=== PATIENT | female | born 1940 | race Caucasian/White ===

== ENCOUNTER 2017-11-10 11:54 | Inpatient (IN) | payer OTHER ==
[2017-11-10] MEDS ORDERED: LEVALBUTEROL 1.25 MG/3 ML NEB ONE (13:47)
--- NOTE | 2017-11-10 14:13 | RAD REPORT ---
EXAM DESCRIPTION: RAD - Chest Single View - 11/10/2017 1:59 pm CLINICAL HISTORY: Shortness of breath. COMPARISON: 10/23/2017 FINDINGS: Portable technique limits examination quality. Mild interstitial pulmonary edema is present. The heart is upper limit normal in size. No displaced f ractures.Cervical spine hardware plate is present. Proximal right humerus hardware noted. IMPRESSION: Mild CHF/ volume overload pattern suspected.
[2017-11-10 14:38] LABS: Absolute Lymphocytes (CBC) 0.8 K/uL (0.7-4.9); Absolute Monocytes 0.8 K/uL (0.1-1.3); Absolute Neutrophil 4.7 K/uL (1.8-8.0); Basophils % 0.5 % (0-1.3); Eosinophils % 1.2 % (0-4.4); Hematocrit 27.9 % (36.0-45.0); Lymphocytes % 12.3 % (15.3-44.8); MCH 29.9 pg (27.0-35.0); MCV 87.5 fL (80-100); MPV 8.8 fL (7.6-11.3); Monocytes % 12.1 % (3.3-12.3); RBC Red Blood Cell Count 3.19 M/uL (3.86-4.86)
[2017-11-10 14:42] LABS: Protime INR 1.1
[2017-11-10 14:47] LABS: Potassium 3.9 mEq/L (3.6-5.0)
[2017-11-10] MEDS ORDERED: METHYLPREDNISOLONE 125 MG INJ ONE (14:55)
[2017-11-10] MEDS ORDERED: FUROSEMIDE 40 MG/4 ML VIAL ONE (14:57)
--- NOTE | 2017-11-10 14:57 | EKG ---
Test Date: 2017-11-10 Test Time: 13:31:37 Prize Jacker: DONTE MEASUREMENT RESULTS: Intervals: Rate: 70 AR: 198 QRSD: 90 QT: 398 QTc: 429 [employer] [place]: P: 46 AR: 198 QRS: 24 T: 69 INTERPRETIVE STATEMENTS: Normal sinus rhythm Normal ECG Compared to ECG 05/24/2016 13:37:54 No significant changes Electronically Signed On 11-10-17 14:56:29 CDT by Kenneth Melgar
[2017-11-10 15:05] LABS: Magnesium 1.4 mg/dL (1.8-2.5)
[2017-11-10 16:13] LABS: Urine Blood NEGATIVE (NEG); Urine Glucose NEGATIVE (NEG); Urine Protein NEGATIVE (NEG)
[2017-11-10] MEDS ORDERED: IPRATROPIUM BROM 0.5MG/2.5ML NEB PRN (16:44)
[2017-11-10] MEDS ORDERED: ALBUTEROL 2.5 MG/3 ML NEB SOL NEB PRN (16:44)
--- NOTE | 2017-11-10 16:53 | EDPHYS ---
Physician Documentation [facility] Name: Maura Harris Age: 77 yrs Sex: Female : 1940 Arrival Date: 11/10/2017 Time: 11:55 Bed 25 Private MD: Jaydon Quiroga ED Physician Gaurav Chow HPI: 11/10 16:12 This 77 yrs old Female presents to ER via Wheelchair with complaints of rn Doesn't Feel Right, High Blood Pressure. 16:12 The patient has shortness of breath at rest, with light activity. Onset: The rn symptoms/episode began/occurred 2 week(s) ago. Associated signs and symptoms: Pertinent negatives: chest pain, productive cough, fever, hemoptysis, loss of consciousness. Severity of symptoms: At their worst the symptoms were moderate in the emergency department the symptoms are unchanged. The patient has experienced similar episodes in the past. Reports 2 weeks of sob, swelling, has had 2 rounds of abx by pcp, not improving, not ambulatory because of previous hip problems and complications. states feels swollen from feet to face. . Historical: - Allergies: 12:29 BACLOFEN; hb 12:29 cefepime; hb 12:29 Ondansetron HCl; hb 12:29 prochlorperazine Edisylate; hb 12:29 Prochlorperazine Maleate; hb 12:29 Vancomycin; hb - Home Meds: 12:29 amlodipine 2.5 mg tab 1 tab once daily [Active]; amoxicillin-pot clavulanate 500-125 mg hb Oral tab 1 tab every 8 hours [Active]; doxazosin 5mg Oral tab 1 tab once daily [Active]; furosemide 40 mg Oral tab 1 tab once daily [Active]; labetalol 200 mg Oral tab 1 tab 2 times per day [Active]; levothyroxine 100 mcg tab [Active]; ofoxacin 0.3ml/5ml [Active]; sertraline 100 mg Oral tab 1 tab once daily [Active]; oxybutynin chloride 5 mg Oral tr24 1 tab once daily [Active]; sodium polystyrene sulfonate Oral powd 20 mL 2 times per day [Active]; - PMHx: 12:29 Hypertension; Hypothyroidism; Renal Disease; Asthma; Depression; UTI; GERD; Arthritis; hb bronchitis - chronic; lymphedema; - Immunization history:: Adult Immunizations up to date. - Social history:: Smoking status: Patient/guardian denies using tobacco. - Family history:: not pertinent. - Hospitalizations: : No recent hospitalization is reported. ROS: 16:12 Constitutional: Negative for fever, chills, and weight loss, Eyes: Negative for injury, rn pain, redness, and discharge, Neck: Negative for injury, pain, and swelling, Cardiovascular: Negative for chest pain, palpitations Respiratory: Negative for pleuritic chest pain, Abdomen/GI: Negative for abdominal pain, nausea, vomiting, diarrhea, and constipation, MS/Extremity: Negative for injury and deformity, Skin: Negative for injury, rash, and discoloration, Neuro: Negative for headache, numbness, tingling, and seizure. Exam: 16:12 Constitutional: This is a well developed, well nourished patient who is awake, alert, rn + mild tachypnea with shallow breaths Head/Face: Normocephalic, atraumatic. Eyes: Pupils equal round and reactive to light, extra-ocular motions intact. Lids and lashes normal. Conjunctiva and sclera are non-icteric and not injected. Cornea within normal limits. Periorbital areas with no swelling, redness, or edema. Cardiovascular: Regular rate and rhythm with a normal S1 and S2. No gallops, murmurs, or rubs. Normal PMI, no JVD. No pulse deficits. Respiratory: + mild tachypnea with shallow breaths, faint exp wheezing, no retractions. Abdomen/GI: Soft, non-tender, with normal bowel sounds. No distension or tympany. No guarding or rebound. No evidence of tenderness throughout. MS/ Extremity: Pulses equal, no cyanosis. Neurovascular intact. + 2+ non-pitting edema bilateral lower ext. Neuro: Awake and alert, GCS 15, oriented to person, place, time, and situation. Cranial nerves II-XII grossly intact. Motor strength 5/5 in all extremities. Sensory grossly intact. Vital Signs: 12:29 BP 159 / 53; Pulse 67; Resp 20; Temp 97.7; Pulse Ox 96% on R/A; hb 14:40 BP 156 / 66; Pulse 65; Resp 16; Temp 98.2(O); Pulse Ox 94% on R/A; dh3 16:11 BP 136 / 81; Pulse 64; Resp 16; Pulse Ox 95% on R/A; kr2 17:33 BP 178 / 65; Pulse 76; Resp 16; Pulse Ox 94% on R/A; kr2 18:01 BP 170 / 68; Pulse 70; Resp 16; Pulse Ox 96% on 2 lpm NC; kr2 MDM: 13:09 Patient medically screened. rn 16:50 Differential diagnosis: CHF exacerbation, Chronic Obstructive Pulmonary Disease rn Myocardial Infarction pneumonia, Pneumothorax pulmonary edema. Data reviewed: vital signs, nurses notes, lab test result(s), EKG, radiologic studies, plain films, and as a result, I will admit patient. Counseling: I had a detailed discussion with the patient and/or guardian regarding: the historical points, exam findings, and any diagnostic results supporting the discharge/admit diagnosis, lab results, radiology results, the need for further work-up and treatment in the hospital. Response to treatment: the patient's symptoms have mildly improved after treatment, and as a result, I will admit patient. Admission orders: after a detailed discussion of the patient's condition and case, the admit orders are written by me. 11/10 13:21 Order name: Blood Culture Adult (2) rn 11/10 13:21 Order name: BMP; Complete Time: 16:00 rn 11/10 13:21 Order name: BNP; Complete Time: 16:00 rn 11/10 13:21 Order name: CBC with Diff; Complete Time: 16:00 rn 11/10 13:21 Order name: Magnesium; Complete Time: 16:00 rn 11/10 13:21 Order name: PT-INR; Complete Time: 16:00 rn 11/10 13:21 Order name: Ptt, Activated; Complete Time: 16:00 rn 11/10 13:21 Order name: Troponin (emerg Dept Use Only); Complete Time: 16:00 rn 11/10 13:21 Order name: Procalcitonin; Complete Time: 16:00 rn 11/10 15:47 Order name: Urine Dipstick--Ancillary (enter results) bd 11/10 16:50 Order name: CBC with Automated Diff EDMS 11/10 16:50 Order name: CBC with Automated Diff EDMS 11/10 16:50 Order name: CBC with Automated Diff EDMS 11/10 13:21 Order name: XRAY CXR (1 view); Complete Time: 14:19 rn 11/10 13:21 Order name: EKG; Complete Time: 13:21 rn 11/10 16:50 Order name: CONS Pharmacy Consult [facility] 11/10 16:50 Order name: Echo with Doppler EDLA 11/10 16:50 Order name: Heart Healthy EDLA 11/10 16:50 Order name: Physical Therapy Consult [facility] 11/10 16:50 Order name: CBC with Automated Diff EDLA 11/10 16:50 Order name: Comprehensive Metabolic Panel [facility] 11/10 16:50 Order name: Comprehensive Metabolic Panel [facility] 11/10 16:50 Order name: Comprehensive Metabolic Panel EDLA 11/10 16:50 Order name: Comprehensive Metabolic Panel [facility] 11/10 16:50 Order name: Magnesium [facility] 11/10 16:50 Order name: Magnesium [facility] 11/10 13:21 Order name: Cardiac monitoring; Complete Time: 13:42 rn 11/10 13:21 Order name: EKG - Nurse/Tech; Complete Time: 13:42 rn 11/10 13:21 Order name: IV Saline Lock; Complete Time: 14:25 rn 11/10 13:21 Order name: Labs collected and sent; Complete Time: 14:25 rn 11/10 13:21 Order name: O2 Per Protocol; Complete Time: 13:42 rn 11/10 13:21 Order name: O2 Sat Monitoring; Complete Time: 13:43 rn Administered Medications: 13:42 Drug: Xopenex (3) 1.25 mg Route: Inhalation; kr2 14:10 Follow up: Response: No adverse reaction kr2 14:45 Drug: SOLU-Medrol 125 mg Route: IVP; Site: left antecubital; kr2 16:10 Follow up: Response: No adverse reaction kr2 14:45 Drug: Lasix 40 mg Route: IVP; Site: left antecubital; kr2 16:10 Follow up: Response: No adverse reaction kr2 Disposition: 11/10/17 16:52 Hospitalization ordered by Sanna Smith for Observation. Preliminary diagnosis are Pulmonary edema, Chronic obstructive pulmonary disease with (acute) exacerbation. - Bed requested for Telemetry/MedSurg (observation). - Status is Observation. kr2 - Condition is Stable. - Problem is new. - Symptoms have improved. UTI on Admission? No Signatures: Dispatcher [employer] EDMS Jing Tuttle, RN RN Gaurav Giordano MD MD rn Baxter, Heather, RN RN hb Reaves, Karey, RN RN kr2 Corrections: (The following items were deleted from the chart) 14:41 13:21 BLOOD CULTURE*+[id number].LAB.BRZ ordered. EDMS EDMS
--- NOTE | 2017-11-10 16:53 | ER ---
Nurse's Notes [facility] Name: Maura Harris Age: 77 yrs Sex: Female : 1940 Arrival Date: 11/10/2017 Time: 11:55 Bed 25 Private MD: Jaydon Quiroga Diagnosis: Pulmonary edema;Chronic obstructive pulmonary disease with (acute) exacerbation Presentation: 11/10 12:23 Presenting complaint: Patient states: "I have been sick for 2 weeks and my shortness of hb breath is getting worse and I am swollen all over." Recently completed Zithromax for URI. Transition of care: patient was not received from another setting of care. Onset of symptoms is unknown. Care prior to arrival: None. 12:23 Method Of Arrival: Wheelchair hb 12:23 Acuity: ELICIA 3 hb Historical: - Allergies: 12:29 BACLOFEN; hb 12:29 cefepime; hb 12:29 Ondansetron HCl; hb 12:29 prochlorperazine Edisylate; hb 12:29 Prochlorperazine Maleate; hb 12:29 Vancomycin; hb - Home Meds: 12:29 amlodipine 2.5 mg tab 1 tab once daily [Active]; amoxicillin-pot clavulanate 500-125 mg hb Oral tab 1 tab every 8 hours [Active]; doxazosin 5mg Oral tab 1 tab once daily [Active]; furosemide 40 mg Oral tab 1 tab once daily [Active]; labetalol 200 mg Oral tab 1 tab 2 times per day [Active]; levothyroxine 100 mcg tab [Active]; ofoxacin 0.3ml/5ml [Active]; sertraline 100 mg Oral tab 1 tab once daily [Active]; oxybutynin chloride 5 mg Oral tr24 1 tab once daily [Active]; sodium polystyrene sulfonate Oral powd 20 mL 2 times per day [Active]; - PMHx: 12:29 Hypertension; Hypothyroidism; Renal Disease; Asthma; Depression; UTI; GERD; Arthritis; hb bronchitis - chronic; lymphedema; - Immunization history:: Adult Immunizations up to date. - Social history:: Smoking status: Patient/guardian denies using tobacco. - Family history:: not pertinent. - Hospitalizations: : No recent hospitalization is reported. Screenin:15 Abuse screen: Denies threats or abuse. Denies injuries from another. Nutritional kr2 screening: No deficits noted. Tuberculosis screening: No symptoms or risk factors identified. Fall Risk None identified. Assessment: 13:30 General: Appears in no apparent distress. comfortable, obese, well groomed, Behavior is kr2 calm, cooperative, appropriate for age. Pain: Denies pain. Neuro: Level of Consciousness is awake, alert, obeys commands, Oriented to person, place, time, situation, Appropriate for age. Cardiovascular: Heart tones S1 S2 Capillary refill < 3 seconds in bilateral fingers Patient's skin is warm and dry. Edema is 3+ to left midcalf, left ankle, left foot, right midcalf, right ankle and right foot Rhythm is sinus rhythm. Respiratory: Reports shortness of breath on exertion Airway is patent Respiratory effort is even, unlabored, Respiratory pattern is regular, symmetrical, the patient has mild shortness of breath. GI: Abdomen is non-distended, obese. : No signs and/or symptoms were reported regarding the genitourinary system. EENT: Oral mucosa is moist. Derm: Skin is intact, is fragile, Skin is pink, warm \\T\\ dry. Musculoskeletal: Circulation, motion, and sensation intact. Range of motion: limited in all extremities. 14:16 Reassessment: Difficulty obtaining IV access, charge nurse notified and she is kr2 attempting at this time. 14:30 Reassessment: Patient appears in no apparent distress at this time. Patient and/or kr2 family updated on plan of care and expected duration. Pain level reassessed. Patient is alert, oriented x 3, equal unlabored respirations, skin warm/dry/pink. Patient denies pain at this time. 16:14 Reassessment: Patient appears in no apparent distress at this time. Patient and/or kr2 family updated on plan of care and expected duration. Pain level reassessed. Patient is alert, oriented x 3, equal unlabored respirations, skin warm/dry/pink. Assisted patient onto bedpan to urinate Patient denies pain at this time. 17:40 Reassessment: Patient appears in no apparent distress at this time. Patient and/or kr2 family updated on plan of care and expected duration. Pain level reassessed. Patient is alert, oriented x 3, equal unlabored respirations, skin warm/dry/pink. Attempted x3 to call 2nd floor to give report, one line busy, no answer at the other Patient denies pain at this time. Vital Signs: 12:29 BP 159 / 53; Pulse 67; Resp 20; Temp 97.7; Pulse Ox 96% on R/A; hb 14:40 BP 156 / 66; Pulse 65; Resp 16; Temp 98.2(O); Pulse Ox 94% on R/A; dh3 16:11 BP 136 / 81; Pulse 64; Resp 16; Pulse Ox 95% on R/A; kr2 17:33 BP 178 / 65; Pulse 76; Resp 16; Pulse Ox 94% on R/A; kr2 18:01 BP 170 / 68; Pulse 70; Resp 16; Pulse Ox 96% on 2 lpm NC; kr2 ED Course: 11:55 Patient arrived in ED. as 11:55 Jaydon Quiroga MD is Private Physician. as 12:27 Triage completed. hb 12:29 Arm band placed on left wrist. hb 13:08 Silva Rodriguez, HADLEY is Primary Nurse. kr2 13:09 Gaurav Chow MD is Attending Physician. rn 13:40 EKG done, by ED staff, reviewed by Gaurav Chow MD. kr2 13:54 X-ray completed. Portable x-ray completed in exam room. Patient tolerated procedure kp1 well. 13:55 XRAY CXR (1 view) In Process Unspecified. EDMS 14:15 Missed attempt(s): 22 gauge in left antecubital area. Bleeding controlled, band aid dh3 applied, catheter tip intact. 14:20 Missed attempt(s): 22 gauge in right forearm. Bleeding controlled, band aid applied, dh3 catheter tip intact. 14:20 First set of blood cultures drawn by me. dh3 14:25 Inserted saline lock: 22 gauge in left antecubital area, using aseptic technique. Blood ss collected. 14:25 Second set of blood cultures drawn by ED staff. dh3 15:15 Patient has correct armband on for positive identification. Bed in low position. Call kr2 light in reach. Side rails up X2. Adult w/ patient. awake overnight monitor on. Pulse ox on. NIBP on. Door closed. Warm blanket given. Head of bed elevated. 15:46 Urine collected: clean catch specimen, clear. kr2 16:51 Sanna Smith MD is Hospitalizing Provider. rn 18:05 No provider procedures requiring assistance completed. Patient admitted, IV remains in kr2 place. Administered Medications: 13:42 Drug: Xopenex (3) 1.25 mg Route: Inhalation; kr2 14:10 Follow up: Response: No adverse reaction kr2 14:45 Drug: SOLU-Medrol 125 mg Route: IVP; Site: left antecubital; kr2 16:10 Follow up: Response: No adverse reaction kr2 14:45 Drug: Lasix 40 mg Route: IVP; Site: left antecubital; kr2 16:10 Follow up: Response: No adverse reaction kr2 Outcome: 16:52 Decision to Hospitalize by Provider. rn 18:06 Admitted to Tele accompanied by tech, family with patient, via stretcher, room 221, kr2 with oxygen, with chart, Report called to Baljit 18:06 Condition: stable 18:06 Instructed on the need for admit, Demonstrated understanding of instructions. 18:47 Patient left the ED. kr2 Signatures: Dispatcher [employer] EDMS Denise Davis Roman, MD MD rn Smirch, Shelby, RN RN ss Baxter, Heather, RN RN hb Poole, Kathy kp1 Geeta Solis 3 Silva Rodriguez RN RN kr2 Corrections: (The following items were deleted from the chart) 16:10 13:30 Respiratory: Airway is patent Respiratory effort is even, unlabored, Respiratory kr2 pattern is regular, symmetrical, kr2 18:07 18:01 BP 170 / 68; Pulse 70bpm; Resp 16bpm; Pulse Ox 98% 2 lpm Nasal Cannula; kr2 kr2
[2017-11-10] MEDS ORDERED: Magnesium Sulfate 2gm IVPB 2 G/50 ML BAG IV ONE (17:00)
[2017-11-10] MEDS ORDERED: FUROSEMIDE 40 MG/4 ML VIAL IV SCH (17:00)
[2017-11-10] MEDS ORDERED: CARVEDILOL 12.5 MG TAB PO SCH (18:00)
[2017-11-10] MEDS: ENOXAPARIN 30 MG/0.3 ML SQ SCH (18:29)
[2017-11-10] MEDS: ACETAMINOPHEN 500 MG TAB PO PRN (20:19)
[2017-11-10] MEDS ORDERED: CARVEDILOL 6.25 MG TAB PO SCH (21:00)
[2017-11-11] MEDS ORDERED: METHYLPREDNISOLONE 40 MG INJ IV SCH (01:00)
--- NOTE | 2017-11-11 03:18 | HP ---
Date of Admission: 11/10/2017 Primary Care Physician: Jaydon Quiroga M.D. Consultants: David Sevilla M.D. with Pulmonology. Chief Complaint: Shortness of breath. Code Status: Full. History Of Present Illness: The patient is a 77-year-old female with past medical history of COPD, a sthma, not on home oxygen, hypertension, chronic kidney disease, sleep apnea, osteoarthritis, who was in her usual state of health until 3 weeks ago when the patient went to her primary care physician f or shortness of breath, wheezing, and cough. The patient was prescribed antibiotics, however, did no t have improvement. She was also given a steroid shot. The patient comes in with progressive weakne ss and progressive shortness of breath. She does report some dry cough. No fever. Does report some chills. Otherwise, also reports some orthopnea and swelling of her legs. The patient came into the ER for further evaluation as her symptoms were constant, moderate, and relatively progressing. On a rrival, her workup revealed sodium of 121, creatinine 1.38, magnesium 1.4. BNP was elevated at 322. Her procalcitonin was negative. Her chest x-ray showed some pulmonary edema and volume overload pat tern. The patient was given breathing treatments, IV steroids, and referred for admission. When the patient was seen in the ER, she was awake, alert, and oriented x3, in some mild distress. Past Medical History: Hypertension; COPD; asthma; chronic kidney disease; sleep apnea, not on CPAP; osteoarthritis; and history of legionnaires disease. Past Surgical History: The patient has had hysterectomy, appendectomy, gallbladder surgery, and ellis ract surgery. Allergies: TO BACLOFEN, COMPAZINE, PROCHLORPERAZINE, ZOFRAN, VANCOMYCIN, CEFEPIME. Medications: Reviewed. Social History: The patient is . Denies any tobacco use, alcohol use, or illicit drug use. The patient lives at home with her . Uses a scooter to get around. Family History: Lung and heart problems run in the family. Father of a brain aneurysm. Mother also of an aneurysm. Review of Systems: An 11-point system reviewed, negative except as per HPI. Physical Examination: Vital Signs: Temperature 97.7, heart rate 67, respirations 20, blood pressure 159/53, O2 initially 8 9% on room air, improved to 96% with treatment. HEENT: Normocephalic, atraumatic. PERRLA. EOMI. Moist mucous membranes. Oropharynx is clear. Po or dentition. Conjunctivae anicteric. Neck: Supple. Trachea midline. CV: S1 and S2. No murmurs. Peripheral pulses are weak bilaterally. Respiratory: Diminished breath sounds. Some expiratory wheezes. The patient is slightly tachypneic . No use of accessory muscles. Gastrointestinal: Abdomen is soft, nontender, nondistended. Positive bowel sounds. No guarding or rigidity. Extremities: No clubbing, cyanosis. 2+ edema in bilateral lower extremities. No calf tenderness. Skin: No rashes. Normal skin turgor. Neuro: Cranial nerves 2 through 12 intact grossly. No focal neurological deficit. Speech is normal . Psych: Mood is anxious. Affect is congruent with mood. Insight and judgment are fair. Laboratory Data: UA is negative. Sodium 121, potassium 3.9, chloride 91, CO2 23, BUN 27, creatinine 1.38, glucose 118, calcium 9.3, magnesium 1.4. Troponin less than 0.03. BNP 322. Procalcitonin 0. 05. INR 1.10. WBC 6.4, H and H 9.5 and 27.9, platelets 161, neutrophils 73.9%. Chest x-ray, person ally reviewed, shows mild CHF, volume overload pattern suspected. EKG, normal sinus rhythm, rate of 70. Assessment And Plan: A 77-year-old female with: 1.Acute chronic obstructive pulmonary disease exacerbation. We will continue with breathing treatme nts and add IV steroids. We will reconcile home medications and resume any other inhalers, the patie nt may be taking. We will consult Pulmonology. 2.Acute congestive heart failure exacerbation. We will start CHF guidelines. We will monitor I's a nd O's strictly, 1500 mL fluid restriction diet. We will diurese with IV Lasix. Monitor creatinine. The patient does have chronic kidney disease. Continue beta-jeronimo and ARB. 3.Hyponatremia. Fluid restriction. 4.Chronic kidney disease. Creatinine around baseline. We will continue to monitor. 5.Hypomagnesemia. We will replace and monitor. 6.Normocytic normochromic anemia, likely anemia of chronic disease. 7.Osteoarthritis, generalized. 8.Obstructive sleep apnea, not on CPAP. 9.Asthma, intermittent. 10.Essential hypertension. Plan: Admit the patient to Med-Surg, place as inpatient. We will consult Pulmonology. Follow up on blood cultures. We will obtain influenza screen. Continuous pulse ox. The patient does not have a [facility] power of civil rights attorney or living will. SARAHI Voice ID: [id number]
[2017-11-11 05:10] LABS: Absolute Lymphocytes (CBC) 0.4 K/uL (0.7-4.9); Absolute Neutrophil 4.3 K/uL (1.8-8.0); Albumin 3.7 g/dL (3.2-5.5); Basophils % 0.3 % (0-1.3); Bilirubin Total 0.7 mg/dL (0.3-1.2); Hematocrit 28.9 % (36.0-45.0); Lymphocytes % 8.9 % (15.3-44.8); MCH 28.8 pg (27.0-35.0); MCV 89.1 fL (80-100); Magnesium 1.7 mg/dL (1.8-2.5); Monocytes % 0.9 % (3.3-12.3); Potassium 3.9 mEq/L (3.6-5.0); Protein, Total 6.7 g/dL (6.0-8.3); RBC Red Blood Cell Count 3.25 M/uL (3.86-4.86)
[2017-11-11 05:21] LABS: Blood Morphology Comment NOT SEEN (NOT SEEN); Platelet Estimate ADEQ; Urine White Blood Cell Casts OK
[2017-11-11] MEDS ORDERED: MAGNESIUM SULFATE 1 gm IVPB 1 GM/100 ML BAG IV ONE (06:14)
--- NOTE | 2017-11-11 08:57 | P.CNS ---
Date of Consult: 11/11/17 Reason for Consult: Shortness of breath and cough Chief Complaint: Shortness of breath History of Present Illness: Patient is 77 years of age have not seen for 2 L she became worse over the past 2 weeks prior to that was doing well started complaining of chest congestion cough shortness of breath became progressively worse her slight fever and was admitted to the hospital cannot afford any bronchodilators is not take any oxygen has never smoked this morning patient was coughing this happened after eating Allergies baclofen Allergy (Intermediate, Verified 09/27/11 04:14) Shortness of breath prochlorperazine [From Compazine] Allergy (Intermediate, Verified 09/09/15 05:51 ) Anaphylaxis cefepime Allergy (Mild, Verified 09/27/11 04:15) Rash ondansetron HCl [From Zofran] Allergy (Mild, Verified 09/27/11 04:14) Rash prochlorperazine edisylate [From Compazine] Allergy (Mild, Verified 09/27/11 04: 14) Rash prochlorperazine maleate [From Compazine] Allergy (Mild, Verified 09/27/11 04:14 ) Rash vancomycin Allergy (Mild, Verified 09/27/11 04:14) Rash Home Medications: Amlodipine [Norvasc] 10 mg PO BID 11/10/17 Buspirone HCl 30 mg PO DAILY 11/10/17 Dexlansoprazole [Dexilant] 60 mg PO DAILY 11/10/17 Doxycycline Hyclate 100 mg PO BIDWM 11/10/17 Hydralazine HCl 50 mg PO TID 11/10/17 Ipratropium/Albuterol Sulfate [Combivent Respimat Inhal [place]] 1 puff IH Q6HP PRN 11/10/17 Ipratropium/Albuterol Sulfate [Iprat-Albut 0.5-3(2.5) mg/3 ml] 1 vial NEB Q8HP PRN 11/10/17 Labetalol HCl [Trandate] 400 mg PO BID 11/10/17 Levothyroxine [Synthroid] 112 mcg PO [id number] 11/10/17 Lisinopril 40 mg PO DAILY 11/10/17 Nystatin Cream [Mycostatin 100MU/Gm Cream] 1 appl TOP BID 11/10/17 Oxybutynin Chloride 5 mg PO TID 11/10/17 Sertraline [Zoloft] 100 mg PO DAILY 11/10/17 Sucralfate [Carafate -Tab] 1 gm PO QID 11/10/17 - Past Medical/Surgical History Diabetic: No -: asthma -: HTN -: COPD -: GERD -: hypothyroid -: spastic bladder -: cholecystectomy -: appendectomy -: hysterectomy -: tonsillectomy -: L hip sx -: x2 abdominal hernia repairs -: right arm sx -: right ankle sx - Social History Smoking Status: Never smoker Alcohol use: No CD- Drugs: No Caffeine use: Yes Place of Residence: Home Review of Systems 10-point ROS is otherwise unremarkable Physical Examination Temp Pulse Resp BP Pulse Ox 97 F 87 20 145/65 H 99 11/11/17 08:00 11/11/17 08:00 11/11/17 08:00 11/11/17 08:00 11/11/17 08:00 General: Alert, Oriented x3 Neck: Supple Respiratory: Clear to auscultation bilaterally Cardiovascular: No edema, Normal S1 S2 Gastrointestinal: Normal bowel sounds, Soft and benign Musculoskeletal: No clubbing, No swelling Laboratory Data (last 24 hrs) 11/10/17 14:25: PT 13.0 H, INR 1.10, APTT 29.2 11/10/17 14:25: WBC 6.4, Hgb 9.5 L, Hct 27.9 L, Plt Count 161 11/10/17 14:25: B-Natriuretic Peptide 322 H 11/10/17 14:25: Sodium 121 L, Potassium 3.9, BUN 27 H, Creatinine 1.38 H, Glucose 118, Magnesium 1.4 L* - Problems (1) Asthma exacerbation Current Visit: No Status: Acute Plan: Patient is 77 years of age with a history of asthma noncompliant cannot afford any inhalers was admitted with worsening dyspnea she does not use any bronchodilators at home is never smoked continue with bronchodilators here with and steroids chest x-ray shows some cardiomegaly interstitial changes probably has some underlying diastolic dysfunction daily room air pulse ox possible discharge tomorrow labs reviewed patient is mildly anemic BNP is mildly elevated reduce dose of Lasix echocardiogram pending
[2017-11-11] MEDS ORDERED: OXYBUTYNIN CHLORIDE 5 MG TAB PO SCH (09:00)
[2017-11-11] MEDS: NYSTATIN 100MU/GM CREAM 15GM TOP SCH ×2 (09:00→21:00)
[2017-11-11] MEDS ORDERED: SUCRALFATE 1 GM TABLET PO SCH (09:00)
[2017-11-11] MEDS ORDERED: LOSARTAN POTASSIUM 50 MG TABLET PO SCH (09:00)
[2017-11-11] MEDS ORDERED: BUSPIRONE HCL 15 MG TABLET PO SCH (09:00)
[2017-11-11] MEDS: AMLODIPINE 10 MG TAB PO SCH ×2 (09:00→21:28)
[2017-11-11] MEDS ORDERED: SERTRALINE HCL 100 MG TAB PO SCH (09:00)
[2017-11-11] MEDS ORDERED: FUROSEMIDE 40 MG/4 ML VIAL IV SCH (09:00)
[2017-11-11] MEDS: ARFORMOTEROL TARTRATE 15 MCG/2 ML VIAL.NEB NEB SCH ×2 (11:33→20:57)
[2017-11-11] MEDS: HYDRALAZINE HCL 50 MG PO SCH ×3 (11:47→21:34)
[2017-11-11] MEDS: LISINOPRIL 40 MG PO SCH (11:48)
[2017-11-11] MEDS: LABETALOL HCL 400 MG PO SCH ×2 (11:48→21:00)
[2017-11-11] MEDS: FUROSEMIDE 40 MG/4 ML VIAL IV SCH (11:48)
[2017-11-11] MEDS: SUCRALFATE 1 GM TABLET PO SCH ×3 (11:50→21:00)
[2017-11-11] MEDS: OXYBUTYNIN 5 MG PO SCH ×2 (11:51→21:29)
[2017-11-11] MEDS: predniSONE 20 MG TAB PO SCH ×2 (11:53→21:28)
--- NOTE | 2017-11-11 13:18 | PN ---
Date of Progress Note: 11/11/2017 Subjective: The patient is seen and examined. Chart reviewed and case discussed with RN. The patie nt is feeling significantly better. Her breathing is better, still having some generalized weakness. Review of Systems: Negative except as above. Medications: Reviewed. Physical Examination: Vital Signs: Temperature 97, heart rate 87, blood pressure 145/65, respirations 20, O2 99% on 2 lite rs via nasal cannula. General: Awake, alert, oriented x3. Some mild distress. Somewhat ill-appearing obese female. CVS: S1 and S2. No murmurs. Regular rate and rhythm. Peripheral pulses are weak bilaterally. Respiratory: Diminished breath sounds. Expiratory wheezes heard. Gastrointestinal: Abdomen is soft, nontender, nondistended. Positive bowel sounds. Extremities: No clubbing, cyanosis, 1+ edema in bilateral lower extremities. Neurologic: Nonfocal. Laboratory Data: Sodium 123, potassium 3.9, chloride 91, CO2 23, BUN 31, creatinine 1.44, glucose 15 9, magnesium 1.7. WBC 4.8, H and H 9.4 and 28.9, platelets 156, neutrophils 89.9%. Influenza screen negative. Blood cultures are pending. Assessment And Plan: A 77-year-old female with. 1.Acute chronic obstructive pulmonary disease exacerbation. Continue breathing treatments and stero ids. Pulmonology on the case. 2.Acute congestive heart failure exacerbation. Ejection fraction is 70% from 2016, diastolic dysfun ction. Continue fluid restriction and IV Lasix. May need to decrease Lasix dose if creatinine delano nues to bump up. The patient's home medications have been reconciled and beta-jeronimo and KRYSTAL were c ontinued. 3.Hyponatremia. Continue fluid restriction. 4.Chronic kidney disease. Creatinine is around baseline. We will monitor. 5.Hypomagnesemia. We will replace and monitor. 6.Normocytic and normochromic anemia, likely anemia of chronic disease. 7.Osteoarthritis, generalized. 8.Obstructive sleep apnea. The patient states that she does have a CPAP machine at home and has bee n able unable to bring it yesterday. 9.Asthma. Intermittent albuterol as needed. 10.Essential hypertension stable. We will resume home medications. /ALL Voice ID: [id number] Report ID: [id number]
[2017-11-11] MEDS: ENOXAPARIN 30 MG/0.3 ML SQ SCH (16:42)
[2017-11-11] MEDS ORDERED: LORAZEPAM 0.5 MG TABLET PO ONE (23:18)
[2017-11-12 05:09] LABS: Absolute Lymphocytes (CBC) 0.5 K/uL (0.7-4.9); Absolute Monocytes 0.4 K/uL (0.1-1.3); Absolute Neutrophil 6.3 K/uL (1.8-8.0); Basophils % 0.1 % (0-1.3); Hematocrit 26.8 % (36.0-45.0); Lymphocytes % 7.1 % (15.3-44.8); MCH 29.6 pg (27.0-35.0); MPV 9.6 fL (7.6-11.3); Monocytes % 5.1 % (3.3-12.3); RBC Red Blood Cell Count 3.04 M/uL (3.86-4.86)
[2017-11-12 05:26] LABS: Albumin 3.4 g/dL (3.2-5.5); Bilirubin Total 0.7 mg/dL (0.3-1.2); Magnesium 1.9 mg/dL (1.8-2.5); Potassium 3.8 mEq/L (3.6-5.0); Protein, Total 6.3 g/dL (6.0-8.3)
[2017-11-12] MEDS: LEVOTHYROXINE SOD 0.112 MG TAB PO SCH (05:49)
[2017-11-12] MEDS ORDERED: LEVOTHYROXINE SOD 0.112 MG TAB PO SCH (06:00)
[2017-11-12] MEDS: ARFORMOTEROL TARTRATE 15 MCG/2 ML VIAL.NEB NEB SCH ×2 (07:33→19:55)
--- NOTE | 2017-11-12 08:58 | RAD REPORT ---
EXAM DESCRIPTION: [facility] Single View11/12/2017 6:42 am CLINICAL HISTORY: Chest pain COMPARISON: November 10 FINDINGS: Mild bilateral interstitial opacities probably are mostly if not all completely chronic. The heart is mildly enlarged
[2017-11-12] MEDS: LABETALOL HCL 400 MG PO SCH ×2 (09:00→21:16)
[2017-11-12] MEDS: AMLODIPINE 10 MG TAB PO SCH ×2 (09:19→21:15)
[2017-11-12] MEDS: FUROSEMIDE 40 MG/4 ML VIAL IV SCH (09:19)
[2017-11-12] MEDS: NYSTATIN 100MU/GM CREAM 15GM TOP SCH ×2 (09:19→21:15)
[2017-11-12] MEDS: predniSONE 20 MG TAB PO SCH ×2 (09:19→21:15)
[2017-11-12] MEDS: SERTRALINE HCL 100 MG TAB PO SCH (09:20)
[2017-11-12] MEDS: DEXLANSOPRAZOLE 60 MG PO SCH (09:21)
[2017-11-12] MEDS: HYDRALAZINE HCL 50 MG PO SCH ×3 (09:21→21:19)
[2017-11-12] MEDS: OXYBUTYNIN 5 MG PO SCH ×3 (09:22→21:18)
[2017-11-12] MEDS: BUSPIRONE HCL 30 MG PO SCH (09:22)
[2017-11-12] MEDS: LUBIPROSTONE 24 MCG PO SCH (09:23)
[2017-11-12] MEDS: LISINOPRIL 40 MG PO SCH (09:23)
[2017-11-12] MEDS: SUCRALFATE 1 GM TABLET PO SCH ×4 (09:24→21:16)
--- NOTE | 2017-11-12 11:21 | ECHO ---
HEIGHT: 5 ft 5 in WEIGHT: 235 lb 4.8 oz DATE OF STUDY: 11/12/[address]: Sanna Smith MD 2-DIMENSIONAL: YES M.MODE: YES DOPPLER: YES COLOR FLOW: YES TDS: NO PORTABLE: NO DEFINITY: NO BUBBLE STUDY: NO DIAGNOSIS: CONGESTIVE HEART FAILURE CARDIAC HISTORY: CATHERIZATION: NO SURGERY: NO PROSTHETIC VALVE: NO PACEMAKER: NO MEASUREMENTS (cm) DIASTOLIC (NORMALS) SYSTOLIC (NORMALS) IVSd 1.2 (0.6-1.2) LA Diam 3.9 (1.9-4.0) LVEF 78% LVIDd 4.8 (3.5-5.7) LVIDs 2.6 (2.0-3.5) %FS 46% LVPWd 1.0 (0.6-1.2) Ao Diam 2.8 (2.0-3.7) 2 DIMENSIONAL ASSESSMENT: RIGHT ATRIUM: NORMAL LEFT ATRIUM: NORMAL RIGHT VENTRICLE: NORMAL LEFT VENTRICLE: NORMAL TRICUSPID VALVE: NORMAL MITRAL VALVE: NORMAL PULMONIC VALVE: NORMAL AORTIC VALVE: NORMAL PERICARDIAL EFFUSION: NONE AORTIC ROOT: NORMAL LEFT VENTRICULAR WALL MOTION: DOPPLER/COLOR FLOW: MILD AORTIC, MITRAL AND TRICUSPID REGURGITATION. MILD PULMONARY HYPERTENSION. ESTIMATED RIGHT VENTRICULAR SYSTOLIC PRESSURE 40mmHg. COMMENTS: NORMAL 2D ECHO. MILD AORTIC, MITRAL AND TRICUSPID REGURGITATION. TECHNOLOGIST: JOSE MÉNDEZ
[2017-11-12] MEDS: ENOXAPARIN 30 MG/0.3 ML SQ SCH (18:24)
--- NOTE | 2017-11-12 18:45 | P.PN ---
Date of Service: 11/12/17 Subjective: The patient is seen and examined. Chart reviewed and case discussed with RN. The patient is feeling significantly better however very emotional and teary eyes. States she is worried about finance and expensive Medication. Review of Systems: Negative except as above. Medications: Reviewed. Physical Examination: Vital Signs: Reviewed. General: Awake, alert, oriented x3. Some mild distress. Somewhat ill- appearing obese female. CVS: S1 and S2. No murmurs. Regular rate and rhythm. Peripheral pulses are weak bilaterally. Respiratory: Diminished breath sounds. Expiratory wheezes heard. Gastrointestinal: Abdomen is soft, nontender, nondistended. Positive bowel sounds. Extremities: No clubbing, cyanosis, 1+ edema in bilateral lower extremities. Neurologic: Nonfocal. Laboratory Data: Sodium 122, potassium 3.9, chloride 86, CO2 23, BUN 31, creatinine 1.37, glucose 212, magnesium 1.7. WBC 4.8, H and H 9.4 and 28.9, platelets 156, neutrophils 89.9%. Influenza screen negative. Blood cultures are pending. Assessment And Plan: 1. Acute chronic obstructive pulmonary disease exacerbation - resolved now. -Continue breathing treatments and steroids. -Pulmonology consulted. Appreciated Reccs 2. Acute congestive heart failure exacerbation _ Improved now -Echo Pending -Continue fluid restriction and IV Lasix. -Continue with BB and KRYSTAL inhibitor 3.Hyponatremia - NA today 122. -Continue fluid restriction. -If needed will Add Salt tabs 4.Chronic kidney disease- Creatinine is around baseline. 5.Obstructive sleep apnea -CPAP for now 6.Essential hypertension -stable. GI and DVT PPX Dispo : Awaiting Clinical improvement.
[2017-11-13] MEDS: LEVOTHYROXINE SOD 0.112 MG TAB PO SCH (05:29)
[2017-11-13 06:04] LABS: Absolute Lymphocytes (CBC) 0.6 K/uL (0.7-4.9); Absolute Monocytes 0.4 K/uL (0.1-1.3); Absolute Neutrophil 6.1 K/uL (1.8-8.0); Basophils % 0.2 % (0-1.3); Hematocrit 28.7 % (36.0-45.0); Lymphocytes % 8.4 % (15.3-44.8); MCH 29.7 pg (27.0-35.0); MCV 88.4 fL (80-100); Monocytes % 6.2 % (3.3-12.3); RBC Red Blood Cell Count 3.24 M/uL (3.86-4.86)
[2017-11-13 06:15] LABS: Albumin 3.4 g/dL (3.2-5.5); Bilirubin Total 0.6 mg/dL (0.3-1.2); Potassium 3.9 mEq/L (3.6-5.0); Protein, Total 5.9 g/dL (6.0-8.3)
[2017-11-13] MEDS: ARFORMOTEROL TARTRATE 15 MCG/2 ML VIAL.NEB NEB SCH ×2 (07:32→20:11)
[2017-11-13] MEDS: DEXLANSOPRAZOLE 60 MG PO SCH (08:31)
[2017-11-13] MEDS: LABETALOL HCL 400 MG PO SCH (09:00)
[2017-11-13] MEDS: OXYBUTYNIN 5 MG PO SCH ×3 (09:00→21:00)
[2017-11-13] MEDS: AMLODIPINE 10 MG TAB PO SCH ×2 (09:00→21:00)
[2017-11-13] MEDS: BUSPIRONE HCL 30 MG PO SCH (09:48)
[2017-11-13] MEDS: LUBIPROSTONE 24 MCG PO SCH (09:49)
[2017-11-13] MEDS: SERTRALINE HCL 100 MG TAB PO SCH (09:49)
[2017-11-13] MEDS: SUCRALFATE 1 GM TABLET PO SCH ×4 (09:50→21:00)
[2017-11-13] MEDS: LISINOPRIL 40 MG PO SCH (09:50)
[2017-11-13] MEDS: HYDRALAZINE HCL 50 MG PO SCH (09:50)
[2017-11-13] MEDS: NYSTATIN 100MU/GM CREAM 15GM TOP SCH ×2 (09:55→21:14)
[2017-11-13] MEDS: predniSONE 20 MG TAB PO SCH ×2 (09:55→21:13)
[2017-11-13] MEDS: FUROSEMIDE 40 MG/4 ML VIAL IV SCH (09:55)
[2017-11-13] MEDS: LABETALOL HCL 100 MG TAB PO SCH ×2 (10:31→21:21)
--- NOTE | 2017-11-13 12:36 | P.PN ---
Date of Service: 11/13/17 Subjective: The patient is seen and examined. Chart reviewed and case discussed with RN. The patient is feeling significantly better today. About to work with PT. States at home she gets around with electric chair and she has not been walking a lot for a while now. Review of Systems: Negative except as above. Medications: Reviewed. Physical Examination: Vital Signs: Reviewed. General: Awake, alert, oriented x3. Some mild distress. Somewhat ill- appearing obese female. CVS: S1 and S2. No murmurs. Regular rate and rhythm. Peripheral pulses are weak bilaterally. Respiratory: Diminished breath sounds. Expiratory wheezes heard. Gastrointestinal: Abdomen is soft, nontender, nondistended. Positive bowel sounds. Extremities: No clubbing, cyanosis, 1+ edema in bilateral lower extremities. Neurologic: Nonfocal. Laboratory Data: Sodium 123, potassium 3.9, chloride 86, CO2 23, BUN 31, creatinine 1.57, glucose 212, magnesium 1.7. WBC 4.8, H and H 9.4 and 28.9, platelets 156, neutrophils 89.9%. Influenza screen negative. Blood cultures are pending. Assessment And Plan: 1. Acute chronic obstructive pulmonary disease exacerbation - resolved now. -Continue breathing treatments and steroids. -Pulmonology consulted. Appreciated Reccs 2. Acute congestive heart failure exacerbation - Improved now -Echo with EF of 83%. No other abnormality noted. -Continue fluid restriction and now PO Lasix. -Continue with BB and KRYSTAL inhibitor -Will monitor for today and see if her CR improves. 3.Hyponatremia - NA today 123. -Continue fluid restriction. -If needed will Add Salt tabs 4.Chronic kidney disease- Creatinine is around baseline. 5.Obstructive sleep apnea -CPAP for now 6.Essential hypertension -stable. GI and DVT PPX Dispo : Awaiting Clinical improvement.
[2017-11-13] MEDS: HOME MED 1 EA UNK (Hydralazine Hcl [Hydralazine Hcl] 50 MG) PO SCH ×2 (14:00→21:00)
--- NOTE | 2017-11-13 14:01 | RAD REPORT ---
EXAM DESCRIPTION: US - Renal Ultrasound-Complete - 11/13/2017 1:40 pm CLINICAL HISTORY: Acute renal failure COMPARISON: 03/08/2016 FINDINGS: The right kidney is small in size. The left kidney is normal in size. The right kidney measures 5.3 x 2.6 x 2.0 cm. No hydronephrosis, focal mass or perinephric fluid. The left kidney measures 10.9 x 5.8 x 4.6 cm. No hydronephrosis, focal mass or perinephric fluid. A 1 cm left renal cyst noted. IMPRESSION: Atrophic right kidney.
[2017-11-13] MEDS: ENOXAPARIN 30 MG/0.3 ML SQ SCH (18:09)
[2017-11-14] MEDS: LEVOTHYROXINE SOD 0.112 MG TAB PO SCH (05:15)
[2017-11-14 06:11] LABS: UR CREAT 60.8 mg/dL; UR POTASSIUM 19.5 mEq/L (25-120)
[2017-11-14] MEDS: ARFORMOTEROL TARTRATE 15 MCG/2 ML VIAL.NEB NEB SCH ×2 (07:10→20:03)
[2017-11-14] MEDS: HOME MED 1 EA UNK (Dexlansoprazole [Dexilant] 60 MG) PO SCH (07:30)
[2017-11-14] MEDS ORDERED: HOME MED 1 EA UNK (Lisinopril [Lisinopril] 40 MG) PO SCH (09:00)
[2017-11-14] MEDS: SUCRALFATE 1 GM TABLET PO SCH ×4 (09:00→20:30)
[2017-11-14] MEDS: LUBIPROSTONE 24 MCG PO SCH (09:00)
[2017-11-14] MEDS: NYSTATIN 100MU/GM CREAM 15GM TOP SCH ×2 (09:00→20:30)
[2017-11-14] MEDS: SERTRALINE HCL 100 MG TAB PO SCH (09:00)
[2017-11-14] MEDS: HOME MED 1 EA UNK (Hydralazine Hcl [Hydralazine Hcl] 50 MG) PO SCH ×3 (09:00→20:30)
[2017-11-14] MEDS: AMLODIPINE 10 MG TAB PO SCH (09:00)
[2017-11-14] MEDS: BUSPIRONE HCL 30 MG PO SCH (09:00)
[2017-11-14] MEDS: OXYBUTYNIN 5 MG PO SCH ×5 (09:00→20:28)
[2017-11-14] MEDS: LABETALOL HCL 100 MG TAB PO SCH ×3 (09:11→20:31)
[2017-11-14] MEDS: predniSONE 20 MG TAB PO SCH (09:12)
[2017-11-14] MEDS: FUROSEMIDE 40 MG TABLET PO SCH (09:12)
[2017-11-14 10:19] LABS: Absolute Lymphocytes (CBC) 0.8 K/uL (0.7-4.9); Absolute Monocytes 0.7 K/uL (0.1-1.3); Basophils % 0.2 % (0-1.3); Hematocrit 28.4 % (36.0-45.0); Lymphocytes % 10.3 % (15.3-44.8); MCH 30.2 pg (27.0-35.0); MCV 87.9 fL (80-100); MPV 8.9 fL (7.6-11.3); Monocytes % 9.4 % (3.3-12.3); RBC Red Blood Cell Count 3.23 M/uL (3.86-4.86)
[2017-11-14 10:30] LABS: Potassium 3.5 mEq/L (3.6-5.0)
[2017-11-14 10:34] LABS: Albumin 3.5 g/dL (3.2-5.5); Bilirubin Total 0.6 mg/dL (0.3-1.2); Protein, Total 6.3 g/dL (6.0-8.3)
--- NOTE | 2017-11-14 10:59 | P.PN ---
Subjective: The patient is seen and examined. Chart reviewed and case discussed with RN. The patient is feeling better today. About to work with PT. States at home she gets around with electric chair and she has not been walking a lot for a while now. Today she has started with her 24 hr Urine collection Review of Systems: Negative except as above. Medications: Reviewed. Physical Examination: Vital Signs: Reviewed. General: Awake, alert, oriented x3. Some mild distress. Somewhat ill- appearing obese female. CVS: S1 and S2. No murmurs. Regular rate and rhythm. Peripheral pulses are weak bilaterally. Respiratory: Diminished breath sounds. Expiratory wheezes heard. Gastrointestinal: Abdomen is soft, nontender, nondistended. Positive bowel sounds. Extremities: No clubbing, cyanosis, 1+ edema in bilateral lower extremities. Neurologic: Nonfocal. Laboratory Data: CMP Sodium 122 L, Potassium 3.5 L, Chloride 88 L, Carbon Dioxide 25, BUN 50 H, Creatinine 2.00 H, Estimated GFR 24 L, Glucose 133 H, Calcium 9.3, Total Bilirubin 0.6, AST 35, ALT 27, Alkaline Phosphatase 50, Serum Total Protein 6.3 , Albumin 3.5, Globulin 2.8, Albumin/Globulin Ratio 1.3 CBC WBC 7.5, RBC 3.23 L, Hgb 9.8 L, Hct 28.4 L, MCV 87.9, MCH 30.2, MCHC 34.4, RDW 14.3, Plt Count 179, MPV 8.9, Neutrophils % 80.1 H, Lymphocytes % 10.3 L, Monocytes % 9.4, Eosinophils % 0.0, Basophils % 0.2, Absolute Neutrophils 6.0, Absolute Lymphocytes 0.8, Absolute Monocytes 0.7, Absolute Eosinophils 0.0, Absolute Basophils 0.0 Urine Test: Ur Random Microalbumin 0.8, Ur Random Sodium 39, Ur Random Potassium 19.5 L, Ur Random Chloride 30, Urine Creatinine 60.8, Urine Osmolality 249 Assessment And Plan: 1. Acute chronic obstructive pulmonary disease exacerbation - resolved now. -Continue breathing treatments and steroids. -Pulmonology consulted. Appreciated Reccs 2. Acute congestive heart failure exacerbation - Improved now -Echo with EF of 78%. No other abnormality noted. -On PO lasix now -Continue with BB and KRYSTAL inhibitor 3.Hyponatremia - NA today 122. -Started on IV fluids today. Given the h/o CHF caution with fluids. Pt is more on the dehydrated side currently. 4.Chronic kidney disease- Creatinine elevated today -Consulted Nephrology -Kidney U/S with Right atrophic Kidney -24hr urine collection pending. 5.Obstructive sleep apnea -CPAP for now 6.Essential hypertension -stable. GI and DVT PPX Dispo : Awaiting Clinical improvement.
[2017-11-14] MEDS ORDERED: NA CHLORIDE 0.9% 1,000 ML IV SCH (11:00)
[2017-11-14] MEDS ORDERED: metroNIDAZOLE 500 MG TABLET PO SCH (14:45)
[2017-11-14] MEDS: NA CHLORIDE 0.9% 1,000 ML IV SCH (14:57)
[2017-11-14] MEDS: ACETAMINOPHEN 500 MG TAB PO PRN ×2 (14:57→20:23)
[2017-11-14] MEDS: ALPRAZOLAM 0.25 MG TABLET PO PRN (15:22)
[2017-11-14] MEDS: metroNIDAZOLE 500 MG TABLET PO SCH (17:16)
[2017-11-14] MEDS: ENOXAPARIN 30 MG/0.3 ML SQ SCH (17:16)
[2017-11-14 18:56] LABS: Potassium 3.7 mEq/L (3.6-5.0)
--- NOTE | 2017-11-14 22:36 | CON ---
Date of Consultation: 11/14/2017 Reason For Consult: Hyponatremia and acute renal insufficiency. History Of Present Illness: Ms. Márquez is a 77-year-old female with past medical history significant f or history of COPD, congestive heart failure, who presented to [facility] complaining of wor sening of shortness of breath associated with lower extremity edema, chest congestion, and cough. Th e patient was diagnosed with COPD/CHF exacerbation. Since her chest x-ray showed pulmonary edema, sh maxwell has been treated with steroids and Lasix. She was noted to be hyponatremic since the time of admis jolene, which has been persistent with a sodium in the 122 range. However, her creatinine was 1.4 at t he time of admission and has been consistently getting worse up to 2 this morning. Sodium has been p ersistently low at 122 and potassium is also low at 3.5, chloride of 88, which is worsening since the time of admission, and BUN of 50, which is worsening from 30 at the time of admission. A CBC showin g stable hemoglobin, hematocrit, and platelet count. The patient states that she has been very anxious, jittery, and feels like her bones are all hurting, and she always has reaction whenever she gets steroids. She wants something to relax her. She does state that her swelling in the legs is improving. However, she states that her shortness of breath is about the same. No repeat chest x-ray has been done since the time of admission. Past Medical History: Significant for history of COPD, congestive heart failure. Morbid obesity, as thma, sleep apnea, but she does not use CPAP, osteoarthritis, and history of Legionnaires disease. Past Surgical History: Significant for history of hysterectomy, appendectomy, cholecystectomy, and c ataract surgery. Allergies: SHE IS ALLERGIC TO MULTIPLE MEDICATIONS INCLUDING BACLOFEN, COMPAZINE, ZOFRAN, VANCOMYCIN , AND CEFEPIME. HOME MEDICATIONS AND CURRENT MEDICATIONS HAVE BEEN REVIEWED. Social History: The patient is . No history of tobacco, alcohol, or drug use reported. Live s at home with her and uses a scooter to get around. Family History: Noncontributory for any history of kidney disease. However, she does have history o f heart problems in many of her family members. Details unable to be obtained. Review of Systems: Positive for weakness, pain all over with bones hurting. Also complaining of shortness of breath at rest. Denies any cough at this time. Swelling is improving. Denies any chest pain. Denies any ailsa sea, vomiting, but she did have an episode of diarrhea the day before yesterday. Imaging Studies: The patient's x-ray from the 12 of November is showing bilateral interstitial opaciti es, possibly chronic, and cardiomegaly. The patient also had an ultrasound of her kidneys done yeste rd, which showed evidence of atrophic right kidney with normal left kidney. Current Medications: Have all been reviewed. She remains on lisinopril 40 mg a day. She is on very high dose of amlodipine 10 mg b.i.d. and she is on very high dose of labetalol of 400 mg b.i.d. She remains on Flagyl 500 mg every 8 hours and prednisone has been decreased down to 20 mg daily from b. i.d. She is also on a munch of anti-anxiety medications as well, which have been continued from her home list. Impression: 1.Acute renal insufficiency possibly secondary to dehydration versus cardiorenal syndrome from under lying Lasix use. However, the patient is noted to have atrophic right kidney, which makes us suspici ous for underlying renovascular disease, which has worsened in the presence of dehydration and use of KRYSTAL inhibitors along with diuretics. At this time, I will discontinue the lisinopril. Her blood pr essures have to be monitored very closely to avoid hypotension. The patient has been noted to have b lood pressures in the 108/53 and 119/58, which is considered hypotension for this patient with possib le underlying renovascular hypertension. I have decreased the amlodipine significantly down to 2.5 m g a day to avoid further fluctuations of her blood pressure and also I will decrease the labetalol to 200 mg b.i.d. and discontinue the lisinopril completely and monitor her closely. 2.Hyponatremia, etiology possibly related to syndrome of inappropriate secretion of antidiuretic hor manuel versus hypovolemic hyponatremia. Her hyponatremia seems to be persistent despite diuresis, henc e I do not suspect this is from her congestive heart failure as her previous sodiums have been normal upon review of records. She has been started on IV fluids at this time, which have been really inte rmittent because of lack of IV access. I will order repeat sodium again later this evening and if it is dropping, her IV fluids needs to be stopped, and she possibly would benefit from starting tolvapt an or conivaptan to improve her sodium at that point. I would avoid salt tablets given history of se lisandra underlying congestive heart failure. 3.Chronic obstructive pulmonary disease exacerbation. The patient's lung seems to be doing okay at this time. I will go ahead and order a repeat chest x-ray for further evaluation of her volume statu s and pulmonary edema. I do not suspect that there is any acute component going on at this time. Cl inically, her lungs sound okay, and she will benefit from tapering down the steroids as well. 4.Congestive heart failure, her volume status seems to be euvolemic at this time. She is on Lasix o nce a day p.o. we will continue that and monitor her. Plan: Overall, patient's condition is guarded at this time, given multiple comorbidities and ongoing severe hyponatremia and renal insufficiency. I have discontinued the lisinopril, adjusted her blood pressure medications ordered. Repeat chest x-ray for today, and I will order repeat labs for today to make sure that her sodium is not further dropping. Continue to monitor her closely, and the plan was discussed with the patient and her family at bedside in detail. Also have ordered Xanax to help her with the anxiety. Continue to monitor her closely. Thank you very much for this consultation. Please do not hesitate to call us with any questions or c oncerns. JESSICA/ALL Voice ID: [id number] Report ID: [id number]
[2017-11-15] MEDS: metroNIDAZOLE 500 MG TABLET PO SCH ×3 (01:46→17:20)
[2017-11-15] MEDS: LEVOTHYROXINE SOD 0.112 MG TAB PO SCH (05:44)
[2017-11-15] MEDS: ALPRAZOLAM 0.25 MG TABLET PO PRN ×2 (05:48→21:22)
[2017-11-15] MEDS: ACETAMINOPHEN 500 MG TAB PO PRN ×2 (05:48→10:43)
[2017-11-15] MEDS: HOME MED 1 EA UNK (Dexlansoprazole [Dexilant] 60 MG) PO SCH (07:30)
[2017-11-15] MEDS: ARFORMOTEROL TARTRATE 15 MCG/2 ML VIAL.NEB NEB SCH ×2 (07:30→19:30)
[2017-11-15 08:39] LABS: UR CREAT 39.2 mg/dL; UR MICROALBUMIN 0.5 mg/dL (< 1.9); UR POTASSIUM 12.8 mEq/L (25-120); Urine Microalbumin Excretion R 4.5 ug/min (< 20)
[2017-11-15] MEDS: predniSONE 20 MG TAB PO SCH (08:41)
[2017-11-15] MEDS: FUROSEMIDE 40 MG TABLET PO SCH (08:41)
[2017-11-15] MEDS: LABETALOL HCL 100 MG TAB PO SCH ×2 (08:43→21:31)
[2017-11-15] MEDS: AMLODIPINE 2.5 MG TAB PO SCH (08:43)
[2017-11-15] MEDS: HOME MED 1 EA UNK (Hydralazine Hcl [Hydralazine Hcl] 50 MG) PO SCH ×3 (08:45→21:00)
[2017-11-15] MEDS: SUCRALFATE 1 GM TABLET PO SCH ×4 (08:45→21:00)
[2017-11-15] MEDS: BUSPIRONE HCL 30 MG PO SCH (08:46)
[2017-11-15] MEDS: SERTRALINE HCL 100 MG TAB PO SCH (08:46)
[2017-11-15] MEDS: OXYBUTYNIN 5 MG PO SCH ×3 (08:46→21:00)
[2017-11-15] MEDS: NYSTATIN 100MU/GM CREAM 15GM TOP SCH ×2 (08:47→21:29)
[2017-11-15] MEDS: NA CHLORIDE 0.9% 1,000 ML IV SCH (08:47)
[2017-11-15] MEDS: LUBIPROSTONE 24 MCG PO SCH (08:47)
--- NOTE | 2017-11-15 09:20 | RAD REPORT ---
EXAM DESCRIPTION: Kamron Single View11/15/2017 6:16 am CLINICAL HISTORY: Shortness of breath COMPARISON: November 12 FINDINGS: The lungs appear clear of acute infiltrate. The heart is mildly enlarged IMPRESSION: No acute abnormalities displayed
[2017-11-15 10:54] LABS: Absolute Lymphocytes (CBC) 1.1 K/uL (0.7-4.9); Absolute Monocytes 1.1 K/uL (0.1-1.3); Absolute Neutrophil 5.8 K/uL (1.8-8.0); Basophils % 0.3 % (0-1.3); Eosinophils % 0.5 % (0-4.4); Lymphocytes % 14.1 % (15.3-44.8); MCV 88.8 fL (80-100); MPV 8.9 fL (7.6-11.3); Monocytes % 13.8 % (3.3-12.3)
[2017-11-15 11:23] LABS: Albumin 3.8 g/dL (3.2-5.5); Bilirubin Total 0.7 mg/dL (0.3-1.2); Potassium 3.3 mEq/L (3.6-5.0); Protein, Total 6.7 g/dL (6.0-8.3)
[2017-11-15 13:00] LABS: Blood Morphology Comment NOT SEEN (NOT SEEN); Platelet Estimate ADEQ
--- NOTE | 2017-11-15 15:38 | P.PN ---
Date of Service: 11/15/17 Subjective: The patient is seen and examined. Chart reviewed and case discussed with RN. The patient is feeling better today. States at home she gets around with electric chair and she has not been walking a lot for a while now. nephrology on board now and made changes to her BP meds which she states is helping her. Review of Systems: Negative except as above. Medications: Reviewed. Physical Examination: Vital Signs: Reviewed. General: Awake, alert, oriented x3. Some mild distress. Somewhat ill- appearing obese female. CVS: S1 and S2. No murmurs. Regular rate and rhythm. Peripheral pulses are weak bilaterally. Respiratory: Diminished breath sounds. Expiratory wheezes heard. Gastrointestinal: Abdomen is soft, nontender, nondistended. Positive bowel sounds. Extremities: No clubbing, cyanosis, 1+ edema in bilateral lower extremities. Neurologic: Nonfocal. Laboratory Data: CMP: Sodium 121 L, Potassium 3.3 L, Chloride 90 L, Carbon Dioxide 22, BUN 52 H, Creatinine 1.89 H, Estimated GFR 26 L, Glucose 99, Calcium 9.1, Total Bilirubin 0.7, AST 41, ALT 32, Alkaline Phosphatase 51, Serum Total Protein 6.7, Albumin 3.8, Globulin 2.9, Albumin/Globulin Ratio 1.3 CBC: WBC 8.1, RBC 3.60 L, Hgb 10.4 L, Hct 32.0 L, MCV 88.8, MCH 29.0, MCHC 32.7 , RDW 14.1, Plt Count 216 D, MPV 8.9, Neutrophils % 71.3, Lymphocytes % 14.1 L , Monocytes % 13.8 H, Eosinophils % 0.5, Basophils % 0.3, Absolute Neutrophils 5.8, Segmented Neutrophils 74, Absolute Lymphocytes 1.1, Lymphocytes 18, Monocytes 8, Absolute Monocytes 1.1, Absolute Eosinophils 0.0, Absolute Basophils 0.0, Morphology Comment Not seen Urine: Ur Random Microalbumin 0.5, Ur Random Sodium 47, Ur Random Potassium 12.8 L, Ur Random Chloride 42, Urine Total Volume 1300, Urine Creatinine 39.2, Ur Creatinine 24 Hour 510 L, Ur Microalbumin 24 Hr 7, Microalbumin Excretion 4.5 , Ur Sodium 24 Hour 61, Ur Potassium 24 Hour 16.6 L, Ur Chloride 24 Hour 55 L Assessment And Plan: 1. Acute chronic obstructive pulmonary disease exacerbation - resolved now. -Continue breathing treatments and steroids. -Pulmonology consulted. Appreciated Reccs 2. Acute congestive heart failure exacerbation - Improved now -Echo with EF of 78%. No other abnormality noted. -On PO lasix now -Continue with BB and norvasc. Dose Decreased per Nephrology. 3.Hyponatremia - NA today 121. possible SIADH -Given the h/o CHF caution with fluids. -Pt is more on the dehydrated side currently. 4.Chronic kidney disease- Creatinine improving today -Consulted Nephrology -Kidney U/S with Right atrophic Kidney -24hr urine collection done. 5.Obstructive sleep apnea -CPAP for now 6.Essential hypertension -stable. GI and DVT PPX Dispo : Awaiting Clinical improvement.
[2017-11-15] MEDS: ENOXAPARIN 30 MG/0.3 ML SQ SCH (17:20)
--- NOTE | 2017-11-15 22:44 | P.PN ---
Date of Service: 11/15/17 Vital Signs Temp Pulse Resp BP Pulse Ox 98.1 F 78 17 126/57 L 94 11/15/17 16:00 11/15/17 21:31 11/15/17 16:00 11/15/17 21:31 11/15/17 16:00 Medications Acetaminophen (Tylenol -Extra Strength) 500 mg PO Q4HP PRN PRN Reason: [id number] Stop: 12/10/17 16:45 Last Admin: 11/15/17 10:43 Dose: 500 mg Albuterol Sulfate (Proventil 0.083% Neb Soln) 2.5 mg NEB [id number] PRN PRN Reason: SHORTNESS OF BREATH Stop: 12/10/17 20:01 Alprazolam (Xanax) 0.25 mg PO TID PRN PRN Reason: ANXIETY Stop: 12/14/17 15:02 Last Admin: 11/15/17 21:22 Dose: 0.25 mg Amlodipine Besylate (Norvasc) 2.5 mg PO DAILY ABDULKADIR Stop: 12/15/17 09:01 Last Admin: 11/15/17 08:43 Dose: 2.5 mg Arformoterol Tartrate (Brovana) 15 mcg NEB BIDRESP ABDULKADIR Stop: 12/11/17 09:01 Last Admin: 11/15/17 19:30 Dose: 15 mcg Enoxaparin Sodium (Lovenox 30 Mg Inj) 30 mg SQ DAILY 5 PM ABDULKADIR Stop: 12/10/17 17:01 Last Admin: 11/15/17 17:20 Dose: 30 mg Furosemide (Lasix) 40 mg PO DAILY ABDULKADIR Stop: 12/14/17 09:01 Last Admin: 11/15/17 08:41 Dose: 40 mg Home Med (Dexlansoprazole [Dexilant]) 60 mg PO ACB ABDULKADIR Stop: 12/14/17 07:31 Last Admin: 11/15/17 07:30 Dose: 60 mg Home Med (Hydralazine Hcl [Hydralazine Hcl]) 50 mg PO TID ABDULKADIR Stop: 12/13/17 14:01 Last Admin: 11/15/17 21:00 Dose: 50 mg Home Med (Lubiprostone [Amitiza*]) 24 mcg PO DAILY ABDULKADIR Stop: 12/14/17 09:01 Last Admin: 11/15/17 08:47 Dose: 24 mcg Home Med (Home Med) 1 ea PO TID ABDULKADIR Stop: 12/13/17 14:01 Last Admin: 11/15/17 21:00 Dose: 1 ea Home Med (Home Med) 1 ea PO DAILY ABDULKADIR Stop: 12/14/17 09:01 Last Admin: 11/15/17 08:46 Dose: 1 ea Home Med (Home Med) 1 ea PO QID ABDULKADIR Stop: 12/13/17 13:01 Last Admin: 11/15/17 21:00 Dose: 1 ea Home Med (Home Med) 1 ea PO DAILY ABDULKADIR Stop: 12/14/17 09:01 Last Admin: 11/15/17 08:46 Dose: 1 ea Home Med (Home Med) 1 ea PO [id number] ABDULKADIR Stop: 12/14/17 06:01 Last Admin: 11/15/17 05:44 Dose: 1 ea Sodium Chloride (Ns 1000 Ml Ivbag) 1,000 mls @ 50 mls/hr IV .Q20H ABDULKADIR Stop: 12/14/17 14:58 Last Admin: 11/15/17 08:47 Dose: 1,000 mls Ipratropium [place] (Atrovent Neb) 0.5 mg NEB [id number] PRN PRN Reason: WHEEZING Stop: 12/10/17 20:01 Last Admin: 11/13/17 07:32 Dose: 0.5 mg Labetalol HCl (Trandate) 200 mg PO BID ABDULKADIR Stop: 12/14/17 16:01 Last Admin: 11/15/17 21:31 Dose: 200 mg Metronidazole (Flagyl) 500 mg PO Q8H ABDULKADIR Stop: 12/14/17 18:01 Last Admin: 11/15/17 17:20 Dose: 500 mg Nystatin (Mycostatin 100mu/Gm Cream) 1 appl TOP BID ABDULKADIR Stop: 12/11/17 09:01 Last Admin: 11/15/17 21:29 Dose: 1 appl Prednisone (Deltasone) 20 mg PO DAILY ABDULKADIR Stop: 12/15/17 09:01 Last Admin: 11/15/17 08:41 Dose: 20 mg Sodium Chloride (Normal Saline Flush) 10 ml IV BID ABDULKADIR Stop: 12/10/17 21:01 Last Admin: 11/15/17 21:32 Dose: 10 ml Microbiology Results 11/10/17 14:25 Blood - Blood Aerobic Blood Culture - Final No growth in 5 days. 11/10/17 14:25 Blood - Blood Anaerobic Blood Culture - Final No growth in 5 days. 11/10/17 14:12 Blood - Blood Aerobic Blood Culture - Final No growth in 5 days. 11/10/17 14:12 Blood - Blood Anaerobic Blood Culture - Final No growth in 5 days. 11/11/17 00:20 Nasopharnyx Influenza Type A Antigen Screen - Final 11/11/17 00:20 Nasopharnyx Influenza Type B Antigen Screen - Final Assessment/ Plan: Nephrology. Feeling better. CPS stable without CP or SOB. No acute events overnight. Vitals, medications, blood work and imaging reviewed in the chart. NAD. Obese. Neck supple. CTA with diminished bases. RRR. Soft Abd. No C/C. Hip and LE Edema trace. No rash. Normal speech. A/ Hyponatremia. Hypokalemia. MAGAN/ CKD III. 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 Anemia in CKD. Diastolic CHF, chronic. P/ Continue current POC and Medications. Continue fluid restriction. Agree with IVF. AM labs. Daily weight. No NSAIDs.
[2017-11-16] MEDS: metroNIDAZOLE 500 MG TABLET PO SCH ×3 (01:55→17:18)
[2017-11-16] MEDS: NA CHLORIDE 0.9% 1,000 ML IV SCH ×2 (04:06→23:39)
[2017-11-16 04:28] LABS: Urine Appearance CLEAR; Urine Bilirubin NEGATIVE (NEG); Urine Blood NEGATIVE (NEG); Urine Color YELLOW; Urine Glucose NEGATIVE (NEG); Urine Protein NEGATIVE (NEG); Urine Urobilinogen 0.2 mg/dL (0.2-1.0)
[2017-11-16 04:37] LABS: Urine Bacteria <20 /HPF (<20); Urine Culture Reflex Order NOT NEEDED; Urine RBC NONE SEEN /HPF (NONE SEEN)
[2017-11-16] MEDS: LEVOTHYROXINE SOD 0.112 MG TAB PO SCH (05:01)
[2017-11-16 05:34] LABS: Absolute Lymphocytes (CBC) 1.1 K/uL (0.7-4.9); Absolute Monocytes 0.8 K/uL (0.1-1.3); Absolute Neutrophil 4.9 K/uL (1.8-8.0); Basophils % 0.1 % (0-1.3); Eosinophils % 0.4 % (0-4.4); Hematocrit 28.4 % (36.0-45.0); Lymphocytes % 16.2 % (15.3-44.8); MCH 29.7 pg (27.0-35.0); MCV 87.8 fL (80-100); MPV 8.9 fL (7.6-11.3); Monocytes % 11.3 % (3.3-12.3); RBC Red Blood Cell Count 3.23 M/uL (3.86-4.86)
[2017-11-16 06:47] LABS: Albumin 3.3 g/dL (3.2-5.5); Bilirubin Total 0.6 mg/dL (0.3-1.2); Magnesium 1.7 mg/dL (1.8-2.5); Phosphorus 3.6 mg/dL (2.5-4.3); Potassium 3.1 mEq/L (3.6-5.0); Protein, Total 5.9 g/dL (6.0-8.3); Thyroid Stimulating Hormone 0.46 uIU/mL (0.34-5.60); Uric Acid 9.7 mg/dL (2.6-8.0)
[2017-11-16 07:26] VITALS: BMI 39.6
[2017-11-16] MEDS: HOME MED 1 EA UNK (Dexlansoprazole [Dexilant] 60 MG) PO SCH (07:30)
[2017-11-16] MEDS: ARFORMOTEROL TARTRATE 15 MCG/2 ML VIAL.NEB NEB SCH ×2 (07:36→19:47)
[2017-11-16] MEDS: NYSTATIN 100MU/GM CREAM 15GM TOP SCH ×2 (09:00→21:00)
[2017-11-16] MEDS: LUBIPROSTONE 24 MCG PO SCH (09:00)
[2017-11-16] MEDS: BUSPIRONE HCL 30 MG PO SCH (09:00)
[2017-11-16] MEDS: HOME MED 1 EA UNK (Hydralazine Hcl [Hydralazine Hcl] 50 MG) PO SCH ×3 (09:00→21:00)
[2017-11-16] MEDS: OXYBUTYNIN 5 MG PO SCH ×3 (09:00→21:00)
[2017-11-16] MEDS: SUCRALFATE 1 GM TABLET PO SCH ×4 (09:00→21:00)
[2017-11-16] MEDS: SERTRALINE HCL 100 MG TAB PO SCH (09:00)
[2017-11-16] MEDS: predniSONE 20 MG TAB PO SCH (09:11)
[2017-11-16] MEDS: FUROSEMIDE 40 MG TABLET PO SCH (09:15)
[2017-11-16] MEDS: AMLODIPINE 2.5 MG TAB PO SCH (09:16)
[2017-11-16] MEDS: LABETALOL HCL 100 MG TAB PO SCH ×2 (09:17→21:13)
--- NOTE | 2017-11-16 17:14 | P.PN ---
Subjective: The patient is seen and examined. Chart reviewed and case discussed with RN. The patient is feeling better today. States at home she gets around with electric chair and she has not been walking a lot for a while now. nephrology on board now and made changes to her BP meds which she states is helping her. Review of Systems: Negative except as above. Medications: Reviewed. Physical Examination: Vital Signs: Reviewed. General: Awake, alert, oriented x3. Some mild distress. Somewhat ill- appearing obese female. CVS: S1 and S2. No murmurs. Regular rate and rhythm. Peripheral pulses are weak bilaterally. Respiratory: Diminished breath sounds. Expiratory wheezes heard. Gastrointestinal: Abdomen is soft, nontender, nondistended. Positive bowel sounds. Extremities: No clubbing, cyanosis, 1+ edema in bilateral lower extremities. Neurologic: Nonfocal. Laboratory Data: 11/16/17 04:57: Serum Osmolality 275 L 11/16/17 04:57: WBC 6.8 D, RBC 3.23 L, Hgb 9.6 L, Hct 28.4 L, MCV 87.8, MCH 29.7, MCHC 33.8, RDW 14.2, Plt Count 169 D, MPV 8.9, Neutrophils % 72.0, Lymphocytes % 16.2, Monocytes % 11.3, Eosinophils % 0.4, Basophils % 0.1, Absolute Neutrophils 4.9, Absolute Lymphocytes 1.1, Absolute Monocytes 0.8, Absolute Eosinophils 0.0, Absolute Basophils 0.0 11/16/17 04:57: Sodium 125 L, Potassium 3.1 L, Chloride 91 L, Carbon Dioxide 26 , BUN 55 H, Creatinine 1.95 H, Estimated GFR 25 L, Glucose 97, Uric Acid 9.7 H, Calcium 8.7, Phosphorus 3.6, Magnesium 1.7 L, Total Bilirubin 0.6, AST 31, ALT 31, Alkaline Phosphatase 45, Serum Total Protein 5.9 L, Albumin 3.3, Globulin 2.6, Albumin/Globulin Ratio 1.3, TSH 0.46, Cortisol 2.3 L Assessment And Plan: 1. Acute chronic obstructive pulmonary disease exacerbation - resolved now. -Continue breathing treatments and steroids. -Pulmonology consulted. Appreciated Reccs 2. Acute congestive heart failure exacerbation - Improved now -Echo with EF of 78%. No other abnormality noted. -On PO lasix now -Continue with BB and norvasc. Dose Decreased per Nephrology. 3.Hyponatremia - NA today 125. possible SIADH -Given the h/o CHF caution with fluids. -Pt is more on the dehydrated side currently. 4.Chronic kidney disease- Creatinine improving today -Consulted Nephrology -Kidney U/S with Right atrophic Kidney -24hr urine collection done. 5.Obstructive sleep apnea -CPAP for now 6.Essential hypertension -stable. 7. Low Cortisol - Will repeat lala and if still low start on steriods. GI and DVT PPX Dispo : Awaiting Clinical improvement.
[2017-11-16] MEDS: ENOXAPARIN 30 MG/0.3 ML SQ SCH (17:18)
--- NOTE | 2017-11-16 20:01 | P.PN ---
Date of Service: 11/16/17 Vital Signs Temp Pulse Resp BP Pulse Ox 98.0 F 73 16 140/62 97 11/16/17 16:00 11/16/17 16:00 11/16/17 16:00 11/16/17 16:00 11/16/17 16:00 Medications Acetaminophen (Tylenol -Extra Strength) 500 mg PO Q4HP PRN PRN Reason: [id number] Stop: 12/10/17 16:45 Last Admin: 11/15/17 10:43 Dose: 500 mg Albuterol Sulfate (Proventil 0.083% Neb Soln) 2.5 mg NEB [id number] PRN PRN Reason: SHORTNESS OF BREATH Stop: 12/10/17 20:01 Alprazolam (Xanax) 0.25 mg PO TID PRN PRN Reason: ANXIETY Stop: 12/14/17 15:02 Last Admin: 11/15/17 21:22 Dose: 0.25 mg Arformoterol Tartrate (Brovana) 15 mcg NEB BIDRESP ABDULKADIR Stop: 12/11/17 09:01 Last Admin: 11/16/17 19:47 Dose: 15 mcg Enoxaparin Sodium (Lovenox 30 Mg Inj) 30 mg SQ DAILY 5 PM ABDULKADIR Stop: 12/10/17 17:01 Last Admin: 11/16/17 17:18 Dose: 30 mg Furosemide (Lasix) 40 mg PO DAILY ABDULKADIR Stop: 12/14/17 09:01 Last Admin: 11/16/17 09:15 Dose: 40 mg Home Med (Dexlansoprazole [Dexilant]) 60 mg PO ACB ABDULKADIR Stop: 12/14/17 07:31 Last Admin: 11/16/17 07:30 Dose: 60 mg Home Med (Hydralazine Hcl [Hydralazine Hcl]) 50 mg PO TID ABDULKADIR Stop: 12/13/17 14:01 Last Admin: 11/16/17 14:00 Dose: 50 mg Home Med (Lubiprostone [Amitiza*]) 24 mcg PO DAILY ABDULKADIR Stop: 12/14/17 09:01 Last Admin: 11/16/17 09:00 Dose: Not Given Home Med (Home Med) 1 ea PO TID ABDULKADIR Stop: 12/13/17 14:01 Last Admin: 11/16/17 14:00 Dose: 1 ea Home Med (Home Med) 1 ea PO DAILY ABDULKADIR Stop: 12/14/17 09:01 Last Admin: 11/16/17 09:00 Dose: 1 ea Home Med (Home Med) 1 ea PO QID ABDULKADIR Stop: 12/13/17 13:01 Last Admin: 11/16/17 17:00 Dose: 1 ea Home Med (Home Med) 1 ea PO DAILY ABDULKADIR Stop: 12/14/17 09:01 Last Admin: 11/16/17 09:00 Dose: 1 ea Home Med (Home Med) 1 ea PO [id number] ABDULKADIR Stop: 12/14/17 06:01 Last Admin: 11/16/17 05:01 Dose: 1 ea Sodium Chloride (Ns 1000 Ml Ivbag) 1,000 mls @ 50 mls/hr IV .Q20H ABDULKADIR Stop: 12/14/17 14:58 Last Admin: 11/16/17 04:06 Dose: 1,000 mls Ipratropium [place] (Atrovent Neb) 0.5 mg NEB [id number] PRN PRN Reason: WHEEZING Stop: 12/10/17 20:01 Last Admin: 11/13/17 07:32 Dose: 0.5 mg Labetalol HCl (Trandate) 200 mg PO BID ABDULKADIR Stop: 12/14/17 16:01 Last Admin: 11/16/17 09:17 Dose: 200 mg Metronidazole (Flagyl) 500 mg PO Q8H ABDULKADIR Stop: 12/14/17 18:01 Last Admin: 11/16/17 17:18 Dose: 500 mg Nystatin (Mycostatin 100mu/Gm Cream) 1 appl TOP BID ABDULKADIR Stop: 12/11/17 09:01 Last Admin: 11/16/17 09:00 Dose: Not Given Prednisone (Deltasone) 20 mg PO DAILY ABDULKADIR Stop: 12/15/17 09:01 Last Admin: 11/16/17 09:11 Dose: 20 mg Sodium Chloride (Normal Saline Flush) 10 ml IV BID ABDULKADIR Stop: 12/10/17 21:01 Last Admin: 11/16/17 09:00 Dose: 10 ml Microbiology Results 11/10/17 14:25 Blood - Blood Aerobic Blood Culture - Final No growth in 5 days. 11/10/17 14:25 Blood - Blood Anaerobic Blood Culture - Final No growth in 5 days. 11/10/17 14:12 Blood - Blood Aerobic Blood Culture - Final No growth in 5 days. 11/10/17 14:12 Blood - Blood Anaerobic Blood Culture - Final No growth in 5 days. 11/11/17 00:20 Nasopharnyx Influenza Type A Antigen Screen - Final 11/11/17 00:20 Nasopharnyx Influenza Type B Antigen Screen - Final Assessment/ Plan: Nephrology. Feeling better. Wants to go home. CPS stable without CP or SOB. No acute events overnight. Vitals, medications, blood work and imaging reviewed in the chart. NAD. Obese. Neck supple. CTA. RRR. Soft Abd. No C/C. Hip and LE Edema trace. No rash. Normal speech. A/ Hyponatremia. Hypokalemia. MAGAN/ CKD III. 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 Anemia in CKD. Diastolic CHF, chronic. P/ Continue current POC and Medications. Continue fluid restriction. Agree with IVF. AM labs. Daily weight. No NSAIDs.
[2017-11-16] MEDS ORDERED: POTASSIUM CL SA 10 MEQ TAB PO ONE (20:17)
[2017-11-16 20:39] VITALS: O2SAT 97
[2017-11-16] MEDS: ALPRAZOLAM 0.25 MG TABLET PO PRN (21:16)
[2017-11-17] MEDS: metroNIDAZOLE 500 MG TABLET PO SCH ×2 (01:30→09:51)
[2017-11-17 05:10] LABS: UR CREAT 60.8 mg/dL
[2017-11-17 05:13] LABS: Urine Appearance CLEAR; Urine Bilirubin NEGATIVE (NEG); Urine Blood NEGATIVE (NEG); Urine Color YELLOW; Urine Glucose NEGATIVE (NEG); Urine Protein NEGATIVE (NEG); Urine Urobilinogen 0.2 mg/dL (0.2-1.0)
[2017-11-17 05:38] LABS: Potassium 3.6 mEq/L (3.6-5.0)
[2017-11-17 05:39] LABS: Urine Bacteria <20 /HPF (<20); Urine Culture Reflex Order NOT NEEDED; Urine RBC NONE SEEN /HPF (NONE SEEN)
[2017-11-17] MEDS: LEVOTHYROXINE SOD 0.112 MG TAB PO SCH (05:43)
[2017-11-17] MEDS: HOME MED 1 EA UNK (Dexlansoprazole [Dexilant] 60 MG) PO SCH (07:30)
[2017-11-17] MEDS: NYSTATIN 100MU/GM CREAM 15GM TOP SCH (09:00)
[2017-11-17] MEDS: HOME MED 1 EA UNK (Hydralazine Hcl [Hydralazine Hcl] 50 MG) PO SCH (09:00)
[2017-11-17] MEDS: BUSPIRONE HCL 30 MG PO SCH (09:00)
[2017-11-17] MEDS: OXYBUTYNIN 5 MG PO SCH (09:00)
[2017-11-17] MEDS: LUBIPROSTONE 24 MCG PO SCH (09:00)
[2017-11-17] MEDS: SERTRALINE HCL 100 MG TAB PO SCH (09:00)
[2017-11-17] MEDS: SUCRALFATE 1 GM TABLET PO SCH (09:00)
--- NOTE | 2017-11-17 09:26 | RAD REPORT ---
EXAM DESCRIPTION: CT - Ct Low Dose Chest Screening - 11/17/2017 8:38 am CLINICAL HISTORY: Hyponatremia, possible pulmonary malignancy COMPARISON: Portable November 15 TECHNIQUE: Axial non contrast 5 mm thick images of the chest were obtained as a lung cancer screenin g study. All CT scans are performed using dose optimization technique as appropriate and may include automated exposure control or mA/KV adjustment according to patient size. FINDINGS: Minimal scarring in each apex. Trace amounts of pleural fluid are present. Atelectasis cathy nges are present in the medial left lung base. Patient has a moderately large hiatal hernia with appr oximately 30% of the stomach intrathoracic. At the superior margin of the herniated stomach along the anterior margin of the aorta there is a 3.6 x 2.1 centimeter soft tissue mass. This is isodense to t he stomach. This is believed to be part of the hernia and GE junction rather than a mass. No endobron chial lesion. No chest wall mass or abnormal axillary lymphadenopathy. A few small mediastinal lymph nodes are present. No large mediastinal mass or lymphadenopathy. IMPRESSION: No mass or lymphadenopathy seen considered suspicious for small cell lung carcinoma. A soft tissue mass is present in the left side mediastinum between the descending aorta and a moderat e-sized hiatal hernia. This is believed to be related to the herniated stomach and GE junction rather than a mass or lymphadenopathy. If the patient's hyponatremia remains unexplained, followup contrast-enhanced CT imaging could be per formed to further characterize the mass. Optimally, this would be performed immediately after ingesti on of a small quantity of oral contrast to opacify the distal esophagus and herniated stomach.
[2017-11-17] MEDS: ARFORMOTEROL TARTRATE 15 MCG/2 ML VIAL.NEB NEB SCH (09:30)
[2017-11-17] MEDS: predniSONE 20 MG TAB PO SCH (09:47)
[2017-11-17] MEDS: FUROSEMIDE 40 MG TABLET PO SCH (09:50)
[2017-11-17] MEDS: LABETALOL HCL 100 MG TAB PO SCH (09:50)
--- NOTE | 2017-11-17 14:43 | P.DS ---
Admission Date: 11/11/17 Discharge Date: 11/17/17 Disposition: ROUTINE DISCHARGE Discharge Condition: GOOD Reason for Admission: Shortness of breath Consultations: Pulmonology and Nephrology - Problems (1) Hyponatremia Onset Date: 11/12/17 Current Visit: Yes Status: Acute (2) COPD exacerbation Onset Date: 11/12/17 Current Visit: No Status: Acute (3) Acute CHF (congestive heart failure) Onset Date: 11/12/17 Current Visit: Yes Status: Acute Qualifiers: Heart failure type: diastolic Qualified Code(s): I50.31 - Acute diastolic ( congestive) heart failure (4) CKD (chronic kidney disease) Onset Date: 11/12/17 Current Visit: Yes Status: Chronic Qualifiers: Chronic kidney disease stage: stage 2 (mild) Qualified Code(s): N18.2 - Chronic kidney disease, stage 2 (mild) (5) Essential (primary) hypertension Onset Date: 11/12/17 Current Visit: Yes Status: Chronic (6) BLANCO (obstructive sleep apnea) Onset Date: 11/12/17 Current Visit: Yes Status: Chronic Brief History of Present Illness: See HPI Hospital Course: Overall during the hospital stay patient remained stable The patient was initially admitted to the hospital for acute on chronic obstructive pulmonary exacerbation. Patient remained on Atrovent and albuterol while here in the hospital along with breathing treatments from drove on a along with oxygen and steroids. Pulmonology was consulted who agreed with the above recommendations. Patient's dyspnea and COPD exacerbation had resolved and patient was doing well overall. Per problem not use recommendation patient could be discharged home with the outpatient follow up and about 1-2 weeks post discharge. While here in the hospital patient also had acute on chronic congestive heart failure exacerbation. Echocardiogram was done here in the hospital which was consistent with EF of 78% and diastolic dysfunction. Patient was on PO Lasix and was continued here on PO Lasix as well. Patient was also continued on her beta jeronimo and Norvasc dose here in the hospital per nephrology. Doses were adjusted by the apparatus engineering technologist here in the hospital given the patient's hypernatremia and acute kidney failure. Patient did have marked improvement in her CHF exacerbation on the day of discharge. Patient was also found to be hypernatremic while here in the hospital. Initially patient was on IV fluids however IV fluids was discontinued given the chronic congestive heart failure history. Patient then was on Lasix only and had mild improvement in the sodium. Patient was worked up for SIADH and had 24 hr urine collection along with kidney ultrasound and here in the hospital. 24 urine collection was negative for SIADH and ultrasound of the kidney was consistent with right atrophic kidney. Nephrology at that time recommended that patient get a morning cortisol level. Which was low however given the fact that patient has been on prednisone while here in the hospital levels could be false positive. After patient was started on prednisone oral here in the hospital patient had marked improvement in her hyponatremia along with kidney function. Patient most likely has adrenal insufficiency that she will be followed up for outpatient by her apparatus engineering technologist and her PCP. All other chronic conditions remained stable while here in the hospital. Patient and family member at bedside who is her were educated extensively about the disease process and change of medication along with the medications and then were discharged home under stable condition. Vital Signs/Physical Exam: Temp Pulse Resp BP Pulse Ox 97.8 F 79 16 134/63 97 11/17/17 12:00 11/17/17 12:00 11/17/17 12:00 11/17/17 12:00 11/17/17 12:00 General: Alert, In no apparent distress, Oriented x3 HEENT: Atraumatic, PERRLA, EOMI Neck: Supple, JVD not distended Respiratory: Clear to auscultation bilaterally, Normal air movement Cardiovascular: Regular rate/rhythm, Normal S1 S2 Gastrointestinal: Normal bowel sounds, No tenderness Musculoskeletal: No tenderness Integumentary: No rashes Neurological: Normal speech, Normal tone, Normal affect Lymphatics: No axilla or inguinal lymphadenopathy Laboratory Data at Discharge: WBC 6.8 K/uL (4.3-10.9) D 11/16/17 04:57 Hgb 9.6 g/dL (12.0-15.0) L 11/16/17 04:57 Hct 28.4 % (36.0-45.0) L 11/16/17 04:57 Plt Count 169 K/uL (152-406) D 11/16/17 04:57 PT 13.0 SECONDS (9.5-12.5) H 11/10/17 14:25 INR 1.10 11/10/17 14:25 APTT 29.2 SECONDS (24.3-36.9) 11/10/17 14:25 Sodium 130 mEq/L (135-145) L 11/17/17 04:48 Potassium 3.6 mEq/L (3.6-5.0) 11/17/17 04:48 BUN 55 mg/dL (6-20) H 11/17/17 04:48 Creatinine 1.92 mg/dL (0.44-1.00) H 11/17/17 04:48 Glucose 99 mg/dL (65-120) 11/17/17 04:48 Uric Acid 9.7 mg/dL (2.6-8.0) H 11/16/17 04:57 Phosphorus 3.6 mg/dL (2.5-4.3) 11/16/17 04:57 Magnesium 1.7 mg/dL (1.8-2.5) L 11/16/17 04:57 Total Bilirubin 0.6 mg/dL (0.3-1.2) 11/16/17 04:57 AST 31 IU/L (10-42) 11/16/17 04:57 ALT 31 IU/L (10-60) 11/16/17 04:57 Alkaline Phosphatase 45 IU/L (42-121) 11/16/17 04:57 B-Natriuretic Peptide 322 pg/ml (<=100) H 11/10/17 14:25 Home Medications: Ipratropium/Albuterol Sulfate [Combivent Respimat Inhal [place]] 1 puff IH Q6HP PRN 11/10/17 Ipratropium/Albuterol Sulfate [Iprat-Albut 0.5-3(2.5) mg/3 ml] 1 vial NEB Q8HP PRN 11/10/17 Alprazolam [Xanax*] 0.25 mg PO TID PRN #30 tab 11/17/17 Arformoterol Tartrate [Brovana] 15 mcg NEB BIDRESP #5 vial.neb 11/17/17 Buspirone HCl 30 mg PO DAILY #30 tablet 11/17/17 Furosemide [Lasix*] 40 mg PO DAILY #30 tab 11/17/17 Hydralazine HCl 100 mg PO TID #180 tablet 11/17/17 Labetalol HCl [Trandate] 400 mg PO BID #120 tablet 11/17/17 Levothyroxine [Synthroid*] 112 mcg PO [id number] #30 tab 11/17/17 Lubiprostone [Amitiza*] 24 mcg PO DAILY #30 cap 11/17/17 Metronidazole [Flagyl*] 500 mg PO Q8H #9 tablet 11/17/17 Oxybutynin Chloride 5 mg PO TID #60 tablet 11/17/17 Prednisone [Prednisone*] 20 mg PO DAILY #30 tab 11/17/17 Sertraline [Zoloft*] 100 mg PO DAILY #30 tab 11/17/17 Sucralfate [Carafate*] 1 gm PO QID #120 tab 11/17/17 New Medications: Alprazolam [Xanax*] 0.25 mg PO TID PRN #30 tab PRN Reason: Anxiety Arformoterol Tartrate [Brovana] 15 mcg NEB BIDRESP #5 vial.neb Buspirone HCl 30 mg PO DAILY #30 tablet Furosemide [Lasix*] 40 mg PO DAILY #30 tab Hydralazine HCl 100 mg PO TID #180 tablet Labetalol HCl [Trandate] 400 mg PO BID #120 tablet Levothyroxine [Synthroid*] 112 mcg PO [id number] #30 tab Lubiprostone [Amitiza*] 24 mcg PO DAILY #30 cap Metronidazole [Flagyl*] 500 mg PO Q8H #9 tablet Oxybutynin Chloride 5 mg PO TID #60 tablet Prednisone [Prednisone*] 20 mg PO DAILY #30 tab Sertraline [Zoloft*] 100 mg PO DAILY #30 tab Sucralfate [Carafate*] 1 gm PO QID #120 tab Patient Discharge Instructions: Please f/u with PCP in 1 to 2 week post discharge. Please f/u with Dr azar in 1 to 2 week post discharge. Stop medication. Amlodipine. Lisinopril. Continue taking all medication as prescribed. You medication has been refilled. You need to fill it up at the pharmacy Diet: Regular Activity: Ad chip Followup: David Sevilla MD [ACTIVE - CAN ADMIT] - 1 Week Jaydon Quiroga MD [Primary Care Provider] - 1 Week
[2017-11-17 18:11] VITALS: BP 124/58; TEMP 98
--- NOTE | 2017-11-17 18:27 | PN ---
Date of Progress Note: 11/17/2017 Subjective: The patient is seen at the bedside. No overnight events reported. The patient feels we ll. Denies any fevers, chills, chest pain, shortness of breath, nausea, vomiting, or diarrhea. The patient is being set up for discharge today. Objective: Vital Signs: Blood pressure is 143/67, pulse 81, temperature 98.4. Blood pressure appea rs to be well controlled on review of vital signs. General: No acute distress. Heart: Regular rate and rhythm. No murmurs, rubs, gallops. Lungs: Clear to auscultation bilaterally. Abdomen: Soft, nontender, nondistended. Positive bowel sounds x4. Extremities: With trace to 1+ edema. Laboratory Data: CBC from today was reviewed. Serum chemistry sodium 130, potassium 3.6, chloride 9 6, CO2 25, BUN 55, creatinine 1.92, glucose is 99. Serum osmolality and urine osmolality over the pa st few days was noted. The patient did have urine osmolality lower than the serum osmolality. Uric acid is elevated at 9.7, calcium is 9.1. Cortisol level was low at 2.8. UA from today morning was n oted and no inflammatory infectious elements were noted. Urine sodium was at 49. Current Medications: Reviewed. Of note, the patient is on prednisone 20 mg daily as well as furosem tish 40 mg daily. The patient was continued on normal saline at 50 mL/h. The patient does continue o n antibiotics. Impression: 1.Hyponatremia in the setting of renal insufficiency. 2.Acute on chronic kidney injury. 3.Acute chronic obstructive pulmonary disease. 4.Acute congestive heart failure exacerbation. 5.Obstructive sleep apnea. 6.Hypertension. Plan: I agree with continuing the patient on prednisone 20 mg daily. Continue Lasix to offset any v olume overload. The patient is well informed of the current plan of care and is satisfied with the c ommunication from all of us in regard to the plan moving forward. The patient will see me in clinic and labs will be ordered at that time. The patient is to be on a 1 .5 L free water restriction during that setting and ideally only drinks to thirst with those limits i n place. Continue Lasix as mentioned. Avoid all NSAIDs. Avoid all contrast. We will continue to genesis coello. /ALL Voice ID: [id number] Report ID: [id number]
== END 2017-11-17 17:44 | disposition home or self-care (01) | DRG 191 ==
LOC: ER 11:54 → ERHOLD 16:57 → 2ND 18:02 → OBSVTOIN 11-11 10:17
PROVIDERS: ADMIT Family Medicine; ATTEND Family Medicine
PROC: 5A09357 Assistance with Respiratory Ventilation, Less than 24 Consecutive Hours, Continuous Positive Airway Pressure (ICD-10-PCS; principal; 2017-11-11)
DX: J44.1 Chronic obstructive pulmonary disease with (acute) exacerbation (principal); E87.1 Hypo-osmolality and hyponatremia; I13.0 Hypertensive heart and chronic kidney disease with heart failure and stage 1 through stage 4 chronic kidney disease, or unspecified chronic kidney disease; I50.32 Chronic diastolic (congestive) heart failure; N17.9 Acute kidney failure, unspecified; J45.901 Unspecified asthma with (acute) exacerbation; N18.3 Chronic kidney disease, stage 3 (moderate); E83.42 Hypomagnesemia; E87.6 Hypokalemia; D63.1 Anemia in chronic kidney disease; G47.33 Obstructive sleep apnea (adult) (pediatric); M15.9 Polyosteoarthritis, unspecified
CPT/HCPCS: 36415; 71045; 76770; 80048; 80053; 81001; 81003; 82043; 82088; 82435; 82436; 82533; 82570; 83735; 83880; 83930; 83935; 84100; 84132; 84133; 84145; 84244; 84300; 84443; 84484; 84550; 85025; 85610; 85730; 87040; 87804; 93005; 93306; 94640; 94660; 94760; 96374; 96375; 97163; 99285; G0297; G0378; J1650; J2920; J2930; J3475; J7030; J7512; J7605

== ENCOUNTER 2017-11-26 09:01 | Inpatient (IN) | payer OTHER ==
[2017-11-26] MEDS ORDERED: ONDANSETRON 4 MG/2 ML VIAL ONE (09:16)
[2017-11-26] MEDS ORDERED: MORPHINE 4 MG/ML SYR ONE ×2 (09:16→12:46)
[2017-11-26] MEDS ORDERED: NA CHLORIDE 0.9% 1,000 ML ONE (09:17)
[2017-11-26 10:04] LABS: Absolute Lymphocytes (CBC) 0.5 K/uL (0.7-4.9); Absolute Monocytes 0.5 K/uL (0.1-1.3); Basophils % 0.1 % (0-1.3); Eosinophils % 0.5 % (0-4.4); Hematocrit 30.8 % (36.0-45.0); Lymphocytes % 5.3 % (15.3-44.8); MCH 30.1 pg (27.0-35.0); MCV 88.4 fL (80-100); MPV 9.7 fL (7.6-11.3); Monocytes % 5.7 % (3.3-12.3); RBC Red Blood Cell Count 3.49 M/uL (3.86-4.86)
--- NOTE | 2017-11-26 10:06 | RAD REPORT ---
EXAM DESCRIPTION: [place] Single View11/26/2017 9:45 am CLINICAL HISTORY: Cough COMPARISON: November 15, 2017 chest x-ray FINDINGS: The lungs appear clear of acute infiltrate. The heart is normal size. A moderate hiatal h ernia is seen IMPRESSION: No acute abnormalities displayed
--- NOTE | 2017-11-26 10:06 | EKG ---
Test Date: 2017-11-26 Test Time: 09:25:06 [employer] Contact Printer: JOSE ALEJANDRO MEASUREMENT RESULTS: Intervals: Rate: 60 TX: 192 QRSD: 110 QT: 452 QTc: 452 [place]: P: 111 TX: 192 QRS: -4 T: 53 INTERPRETIVE STATEMENTS: Normal sinus rhythm Normal ECG Compared to ECG 11/10/2017 13:31:37 No significant changes Electronically Signed On 11-26-17 10:06:23 CDT by Kenneth Melgar
[2017-11-26 10:08] LABS: Protime INR 1.08
[2017-11-26 10:38] LABS: Albumin 3.7 g/dL (3.2-5.5); Bilirubin Direct 0.1 mg/dL (0-0.2); Bilirubin Total 0.6 mg/dL (0.3-1.2); CKMB Creatine Kinase MB 1.4 ng/ml (0.3-4.0); Magnesium 1.7 mg/dL (1.8-2.5); Protein, Total 6.7 g/dL (6.0-8.3)
[2017-11-26 10:41] LABS: Potassium 2.6 mEq/L (3.6-5.0)
[2017-11-26] MEDS ORDERED: POTASSIUM 25 MEQ EFFERV TAB ONE (11:21)
[2017-11-26] MEDS ORDERED: MAGNESIUM SULFATE 1 gm IVPB 1 GM/100 ML BAG IV ONE (11:21)
[2017-11-26 11:33] LABS: Blood Morphology Comment NOT SEEN (NOT SEEN); Platelet Estimate ADEQ
--- NOTE | 2017-11-26 12:04 | RAD REPORT ---
EXAM DESCRIPTION: CT - Head Brain Wo Cont - 11/26/2017 11:59 am CLINICAL HISTORY: Transient alteration of awareness. COMPARISON: CT head February 2009 TECHNIQUE: Axial 5 mm thick images of the head were obtained without IV contrast. All CT scans are performed using dose optimization technique as appropriate and may include automated exposure control or mA/KV adjustment according to patient size. FINDINGS: No intracranial hemorrhage, mass, edema or shift of mid-line structures. No acute cortical based infarction. Moderate atrophy and chronic ischemic changes are present. Ventricular size is in proportion. Arterial and physiologic calcifications are present. No abnormal extra-axial fluid collec tions. Intracranial findings are not substantially different from 2009. Mastoid air cells and visualized portions of the paranasal sinuses are clear. No acute bony findings. IMPRESSION: Moderate atrophy and chronic ischemic changes are present similar to comparison. No acut e intracranial finding.
--- NOTE | 2017-11-26 12:15 | RAD REPORT ---
EXAM DESCRIPTION: CT - Abdomen Pelvis Wo Contrast - 11/26/2017 12:02 pm CLINICAL HISTORY: Syncope, abdominal pain, diarrhea COMPARISON: CT imaging February 2016. TECHNIQUE: Axial [address] imaging of the abdomen and pelvis was performed without IV contrast. No IV contrast was given because of allergy, abnormal renal function, patient refusal or physician re quest. Oral contrast was given. All CT scans are performed using dose optimization technique as appropriate and may include automated exposure control or mA/KV adjustment according to patient size. FINDINGS: No suspicious findings in the lung bases. No pericardial thickening or effusion. The liver, spleen and pancreas show no suspicious findings on non-contrast imaging. Gallbladder is ab sent. No biliary tree dilatation. No hydronephrosis or suspicious renal mass. Right kidney is much smaller than the left. This matches prior imaging. No significant adrenal finding. Isodense renal masses and pyelonephritis cannot be exc luded in the absence of IV contrast. The urinary bladder is without significant finding. Uterus is ab sent. Ovaries are absent or atrophic. Moderately large hiatal hernia is present with approximately 30% of the stomach intrathoracic. No dino ar change to the stomach from prior imaging. No acute large or small bowel finding. No free air, free fluid or inflammatory stranding. No mass or bulky lymphadenopathy. The very small fat only umbilical hernia has not changed. No acute or destructive bone process seen. Femoral head and neck have been resected. Posttraumatic or degenerative change noted to the acetabulum. There is superior migration of the greater trochanter i n the absence of the femoral head. This is a chronic presentation of the hip joint. IMPRESSION: Non-contrast enhanced CT abdomen and pelvis imaging show no significant or suspicious fi nding. The above detailed findings are similar to prior imaging. Full assessment is limited is the absence of IV contrast.
[2017-11-26 12:33] LABS: Urine Blood NEGATIVE (NEG); Urine Glucose NEGATIVE (NEG); Urine Protein NEGATIVE (NEG); Urine Specific Gravity 1.015 (1.005-1.030)
--- NOTE | 2017-11-26 13:04 | ER ---
Nurse's Notes [facility] Name: Maura Harris Age: 77 yrs Sex: Female : 1940 Arrival Date: 11/26/2017 Time: 09:02 Bed 19 Private MD: Diagnosis: Acute kidney failure;Unspecified abdominal pain;Diarrhea, unspecified;Hyponatremia;Near syncope;Hypokalemia Presentation: 11/26 09:03 Presenting complaint: EMS states: called out for possible syncopal episode, c/o abd em pain and diarrhea, pt was admitted last week and was taken off all old medication and put on 15 new medications. Transition of care: patient was not received from another setting of care. Onset of symptoms was November 26, 2017. Initial Sepsis Screen:. Care prior to arrival: None. 09:03 Method Of Arrival: EMS: [facility] em 09:05 Acuity: ELICIA 3 iw 09:05 Initial Sepsis Screen: Does the patient meet any 2 criteria? No. Patient's initial iw sepsis screen is negative. Does the patient have a suspected source of infection? No. Patient's initial sepsis screen is negative. Historical: - Allergies: 09:32 Macrobid; em 09:32 Compazine; em - PMHx: 09:32 Arthritis; Asthma; bronchitis - chronic; Depression; GERD; Hypertension; em Hypothyroidism; lymphedema; Renal Disease; UTI; - Immunization history:: Adult Immunizations up to date. - Social history:: Smoking status: Patient/guardian denies using tobacco. Screenin:28 Abuse screen: Denies threats or abuse. Nutritional screening: No deficits noted. em Tuberculosis screening: No symptoms or risk factors identified. Fall Risk Secondary diagnosis (15 points) impaired mobility, IV access (20 points). Gait- Weak (10 pts.). Total Mcallister Fall Scale indicates High Risk Score (45 or more points). Fall prevention measures have been instituted. Placed Close to Nursing Station Family Present and informed to notify staff if the need to leave the bedside. Assessment: 09:10 General: Appears in no apparent distress. uncomfortable, obese, Behavior is calm, em cooperative. Pain: Complains of pain in abdomen Pain began 1 hour ago. Neuro: Level of Consciousness is awake, alert, Oriented to person, place, time, situation, Weakness Speech is slurred, Facial symmetry appears normal. Cardiovascular: Capillary refill < 3 seconds Patient's skin is warm and dry. Respiratory: Airway is patent Respiratory effort is even, unlabored, Respiratory pattern is regular, symmetrical, Breath sounds are clear bilaterally. GI: Abdomen is obese, Stools are reported to be loose, diarrhea. Last BM was November 26, 2017. at 09:00. Abd is soft X 4 quads Abdomen is tender to palpation X 4 quads. : No signs and/or symptoms were reported regarding the genitourinary system. EENT: Oral mucosa is dry. Derm: Skin is intact, is fragile, is thin. Musculoskeletal: Range of motion: intact in all extremities. 09:25 Reassessment: Patient appears in no apparent distress at this time. I agree with above iw assessment by Obdulio Peañ LVN. 11:40 Reassessment: Patient appears in no apparent distress at this time. Patient and/or em family updated on plan of care and expected duration. Pain level reassessed. Patient is alert, oriented x 3, equal unlabored respirations, skin warm/dry/pink. Patient states feeling better. Patient states symptoms have improved. 12:27 Reassessment: Patient appears in no apparent distress at this time. Patient and/or em family updated on plan of care and expected duration. Pain level reassessed. Patient is alert, oriented x 3, equal unlabored respirations, skin warm/dry/pink. c/o pain, rates 7/10 in abd, Bk, RHEUMATOLOGY SPECIALIST notified, new orders received. 13:30 Reassessment: Patient appears in no apparent distress at this time. Patient and/or em family updated on plan of care and expected duration. Pain level reassessed. Patient is alert, oriented x 3, equal unlabored respirations, skin warm/dry/pink. Patient states feeling better. 15:05 Reassessment: Patient appears in no apparent distress at this time. Patient and/or em family updated on plan of care and expected duration. Pain level reassessed. Patient is alert, oriented x 3, equal unlabored respirations, skin warm/dry/pink. Vital Signs: 09:05 BP 117 / 47; Pulse 63; Resp 18; Temp 97.5; Pulse Ox 97% on R/A; Weight 101.6 kg; Height em 5 ft. 6 in. (167.64 cm); Pain 9/10; 10:30 BP 126 / 60; Pulse 59; Resp 18; Pulse Ox 99% on R/A; em 12:27 BP 138 / 63; Pulse 63; Resp 18; Pulse Ox 99% on R/A; Pain 7/10; em 14:00 BP 121 / 41; Pulse 66; Resp 18; Pulse Ox 99% on R/A; em 15:00 BP 118 / 47; Pulse 67; Resp 18; Pulse Ox 99% on R/A; Pain 7/10; em 09:05 Body Mass Index 36.15 (101.60 kg, 167.64 cm) em ED Course: 09:02 Patient arrived in ED. em 09:03 Salvador June MD is Attending Physician. [facility] 09:04 Bk Leon NP is PHCP. pm1 09:29 Obdulio Peña LVN is Primary Nurse. em 09:33 EKG done, by predictive maintenance technician. reviewed by Salvador June MD. tc 09:39 X-ray completed. Portable x-ray completed in exam room. Patient tolerated procedure jb2 well. 09:42 Triage completed. em 09:43 XRAY Chest (1 view) In Process Unspecified. EDMS 09:48 Initial lab(s) drawn, by me, sent to lab. mh5 09:49 Patient has correct armband on for positive identification. Placed in gown. Bed in low mh5 position. Call light in reach. Side rails up X2. Adult w/ patient. Door closed. cleaned up diarrhea from upper back to knees place in clean gown . Warm blanket given. 10:18 No provider procedures requiring assistance completed. Maintain EMS IV. Dressing em intact. Good blood return noted. Site clean \T\ dry. Gauge \T\ site: 20 G RAC. 10:18 Arm band placed on. em 11:29 Urine collected: straight cath specimen, clear. dh3 11:59 CT Head Brain wo Cont In Process Unspecified. EDMS 12:00 Abdomen In Process Unspecified. EDMS 13:02 Mick Rousseau MD is Hospitalizing Provider. pm1 14:40 Gee cath inserted, using sterile technique, 18 Fr., by me, balloon inflated, to em gravity drainage. 15:12 Report given to HADLEY Dailey 2nd floor. dm5 15:41 Patient admitted, IV remains in place. em Administered Medications: 09:45 Drug: NS 0.9% 1000 ml Route: IV; Rate: 125 ml/hr; Site: left antecubital; em 15:02 Follow up: IV Status: Infusion continued upon admission; IV Intake: 500ml em 09:50 Drug: morphine 4 mg Route: IVP; Site: left antecubital; iw 12:50 Follow up: Response: No adverse reaction; Pain is decreased em 09:50 Drug: Zofran 4 mg Route: IVP; Site: left antecubital; iw 12:55 Follow up: Response: No adverse reaction; Nausea is decreased em 10:53 CANCELLED (Physician Discretion): Potassium Chloride 20 mEq IV at calculated rate once; pm1 administer over 2 hours 11:38 Drug: Potassium Effervescent Tablet 50 mEq Route: PO; em 12:51 Follow up: Response: No adverse reaction em 11:38 Drug: Magnesium Sulfate 1 grams Route: IVPB; Infused Over: 1 hrs; Site: left em antecubital; 15:01 Follow up: Response: No adverse reaction; IV Intake: 100ml em 12:54 Drug: morphine 2 mg Route: IVP; Site: left antecubital; em 15:01 Follow up: Response: No adverse reaction; Pain is decreased em Intake: 15:01 IV: 100ml; Total: 100ml. em 15:02 IV: 500ml; Total: 600ml. em Outcome: 13:03 Decision to Hospitalize by Provider. pm1 15:41 Admitted to Med/surg accompanied by tech, room 212, Report called to HADLEY Dailey em 15:41 Condition: good 15:41 Instructed on the need for admit, Demonstrated understanding of instructions. 15:45 Patient left the ED. em Signatures: Dispatcher [facility] Brooke Puckett, HADLEY RN dmSalvador Vasquez MD MD cha Buechter, Jesse jb2 Obdulio Peña, PROCESS ARTIST PROCESS ARTIST em Yamel Escobedo RN RN iw Callis, Tiffany, operations team leader EKG Bk Bean NP RHEUMATOLOGY SPECIALIST pm1 Dina Davis Geeta Raygoza 3 Corrections: (The following items were deleted from the chart) 09:42 09:03 Initial Sepsis Screen: Does the patient meet any 2 criteria? No. Patient's em initial sepsis screen is negative. Does the patient have a suspected source of infection? No. Patient's initial sepsis screen is negative. em 09:42 09:03 Acuity: ELICIA 3 em em
--- NOTE | 2017-11-26 13:04 | EDPHYS ---
Physician Documentation [facility] Name: Maura Harris Age: 77 yrs Sex: Female : 1940 Arrival Date: 11/26/2017 Time: 09:02 Bed 19 Private MD: ED Physician Salvador June HPI: 11/26 12:00 This 77 yrs old Female presents to ER via EMS with complaints of Abdominal pm1 pain, diarrhea, and possible syncope. 12:00 The patient presents with abdominal pain suprapubic area. Onset: The symptoms/episode pm1 began/occurred this morning. The symptoms do not radiate. Associated signs and symptoms: Pertinent positives: diarrhea, Pertinent negatives: nausea and vomiting, chest pain, dysuria, fever, shortness of breath. The symptoms are described as crampy, sharp. Modifying factors: The symptoms are alleviated by nothing, the symptoms are aggravated by nothing. Severity of pain: in the emergency department the pain is actually worse. The patient has not experienced similar symptoms in the past. The patient has been recently been admitted at [facility], was discharged last week, for apparently unrelated complaints, CHF exacerbation. Patient with suprapubic abdominal pain and diarrhea that started this AM. Patient experienced same pain that caused her to double over and possibly have a near syncopal episode. Patient leaned forward on her electric wheelchair and drove into her TV. Patient recalls the events. . Historical: - Allergies: 09:32 Macrobid; em 09:32 Compazine; em - PMHx: 09:32 Arthritis; Asthma; bronchitis - chronic; Depression; GERD; Hypertension; em Hypothyroidism; lymphedema; Renal Disease; UTI; - Immunization history:: Adult Immunizations up to date. - Social history:: Smoking status: Patient/guardian denies using tobacco. ROS: 12:00 Constitutional: Negative for fever, chills, and weight loss, Eyes: Negative for injury, pm1 pain, redness, and discharge, ENT: Negative for injury, pain, and discharge, Neck: Negative for injury, pain, and swelling, Cardiovascular: Negative for chest pain, palpitations, and edema, Respiratory: Negative for shortness of breath, cough, wheezing, and pleuritic chest pain. 12:00 Back: Negative for injury and pain, : Negative for injury, bleeding, discharge, and swelling, MS/Extremity: Negative for injury and deformity, Skin: Negative for injury, rash, and discoloration. 12:00 Abdomen/GI: Positive for abdominal pain, diarrhea, Negative for nausea and vomiting. 12:00 Neuro: Positive for near syncope, Negative for weakness. Exam: 12:00 Constitutional: This is a well developed, well nourished patient who is awake, alert, pm1 and in no acute distress. Head/Face: Normocephalic, atraumatic. Eyes: Pupils equal round and reactive to light, extra-ocular motions intact. Lids and lashes normal. Conjunctiva and sclera are non-icteric and not injected. Cornea within normal limits. Periorbital areas with no swelling, redness, or edema. ENT: Nares patent. No nasal discharge, no septal abnormalities noted. Tympanic membranes are normal and external auditory canals are clear. Oropharynx with no redness, swelling, or masses, exudates, or evidence of obstruction, uvula midline. Mucous membranes moist. Neck: Trachea midline, no thyromegaly or masses palpated, and no cervical lymphadenopathy. Supple, full range of motion without nuchal rigidity, or vertebral point tenderness. No Meningismus. Chest/axilla: Normal chest wall appearance and motion. Nontender with no deformity. No lesions are appreciated. Cardiovascular: Regular rate and rhythm with a normal S1 and S2. No gallops, murmurs, or rubs. Normal PMI, no JVD. No pulse deficits. Respiratory: Lungs have equal breath sounds bilaterally, clear to auscultation and percussion. No rales, rhonchi or wheezes noted. No increased work of breathing, no retractions or nasal flaring. 12:00 Skin: Warm, dry with normal turgor. Normal color with no rashes, no lesions, and no evidence of cellulitis. MS/ Extremity: Pulses equal, no cyanosis. Neurovascular intact. Full, normal range of motion. 12:00 Abdomen/GI: Inspection: abdomen appears normal, obese Bowel sounds: normal, Palpation: soft, moderate abdominal tenderness, in the suprapubic area, mass, is not appreciated, rebound tenderness, is not appreciated. 12:00 Neuro: Orientation: is normal, Mentation: is normal, Motor: moves all fours. Vital Signs: 09:05 BP 117 / 47; Pulse 63; Resp 18; Temp 97.5; Pulse Ox 97% on R/A; Weight 101.6 kg; Height em 5 ft. 6 in. (167.64 cm); Pain 9/10; 10:30 BP 126 / 60; Pulse 59; Resp 18; Pulse Ox 99% on R/A; em 12:27 BP 138 / 63; Pulse 63; Resp 18; Pulse Ox 99% on R/A; Pain 7/10; em 14:00 BP 121 / 41; Pulse 66; Resp 18; Pulse Ox 99% on R/A; em 15:00 BP 118 / 47; Pulse 67; Resp 18; Pulse Ox 99% on R/A; Pain 7/10; em 09:05 Body Mass Index 36.15 (101.60 kg, 167.64 cm) em MDM: 09:04 Patient medically screened. [facility] 13:00 Physician consultation: Mick Rousseau MD was called at 13:00, was contacted at 13:00, pm1 regarding admission, patient's condition, and will see patient in ED. 13:02 Data reviewed: vital signs. Data interpreted: Pulse oximetry: on room air is 99 %. pm1 Interpretation: normal. Counseling: I had a detailed discussion with the patient and/or guardian regarding: the historical points, exam findings, and any diagnostic results supporting the discharge/admit diagnosis, lab results, radiology results, the need for further work-up and treatment in the hospital. 11/26 09:05 Order name: Basic Metabolic Panel; Complete Time: 10:42 [facility] 11/26 09:05 Order name: BNP; Complete Time: 11:20 [facility] 11/26 09:05 Order name: CBC with Diff; Complete Time: 12:19 [facility] 11/26 09:05 Order name: Ckmb; Complete Time: 10:42 [facility] 11/26 09:05 Order name: CPK; Complete Time: 10:42 [facility] 11/26 09:05 Order name: LFT's; Complete Time: 10:42 [facility] 11/26 09:05 Order name: Magnesium; Complete Time: 10:42 [facility] 11/26 09:05 Order name: PT-INR; Complete Time: 10:40 [facility] 11/26 09:05 Order name: Ptt, Activated; Complete Time: 10:40 [facility] 11/26 09:05 Order name: Troponin (emerg Dept Use Only); Complete Time: 10:38 [facility] 11/26 09:05 Order name: Lipase; Complete Time: 10:42 [facility] 11/26 10:42 Order name: CDIFF [facility] 11/26 10:42 Order name: Fecal Leukocyte Stain [facility] 11/26 09:05 Order name: XRAY Chest (1 view); Complete Time: 10:13 [facility] 11/26 10:42 Order name: Ova And Parasites [facility] 11/26 10:42 Order name: Stool Culture [facility] 11/26 10:53 Order name: CT Head Brain wo Cont; Complete Time: 12:19 [facility] 11/26 11:32 Order name: Urine Culture [facility] 11/26 11:33 Order name: Manual Differential; Complete Time: 12:19 [facility] 11/26 11:38 Order name: Abdomen ; Complete Time: 12:19 [facility] 11/26 11:54 Order name: Urine Dipstick--Ancillary (enter results); Complete Time: 12:45 11/26 09:05 Order name: EKG; Complete Time: 09:06 [facility] 11/26 09:05 Order name: Cardiac monitoring; Complete Time: 11:05 [facility] 11/26 09:05 Order name: EKG - Nurse/Tech; Complete Time: 11:06 [facility] 11/26 09:05 Order name: IV Saline Lock; Complete Time: 11:05 [facility] 11/26 09:05 Order name: Labs collected and sent; Complete Time: 11:05 [facility] 11/26 09:05 Order name: O2 Per Protocol; Complete Time: 11:05 [facility] 11/26 09:05 Order name: O2 Sat Monitoring; Complete Time: 11:05 [facility] 11/26 09:05 Order name: Urine Dipstick-Ancillary (obtain specimen); Complete Time: 11:30 [facility] 11/26 13:45 Order name: Gee; Complete Time: 14:42 pm1 Administered Medications: 09:45 Drug: NS 0.9% 1000 ml Route: IV; Rate: 125 ml/hr; Site: left antecubital; em 15:02 Follow up: IV Status: Infusion continued upon admission; IV Intake: 500ml em 09:50 Drug: morphine 4 mg Route: IVP; Site: left antecubital; iw 12:50 Follow up: Response: No adverse reaction; Pain is decreased em 09:50 Drug: Zofran 4 mg Route: IVP; Site: left antecubital; iw 12:55 Follow up: Response: No adverse reaction; Nausea is decreased em 10:53 CANCELLED (Physician Discretion): Potassium Chloride 20 mEq IV at calculated rate once; pm1 administer over 2 hours 11:38 Drug: Potassium Effervescent Tablet 50 mEq Route: PO; em 12:51 Follow up: Response: No adverse reaction em 11:38 Drug: Magnesium Sulfate 1 grams Route: IVPB; Infused Over: 1 hrs; Site: left em antecubital; 15:01 Follow up: Response: No adverse reaction; IV Intake: 100ml em 12:54 Drug: morphine 2 mg Route: IVP; Site: left antecubital; em 15:01 Follow up: Response: No adverse reaction; Pain is decreased em Disposition: 11/27 06:55 Co-signature as Attending Physician, Salvador June MD I agree with the assessment and cathy plan of care. Disposition: 11/26/17 13:03 Hospitalization ordered by Mick Rousseau for Inpatient Admission. Preliminary diagnosis are Acute kidney failure, Unspecified abdominal pain, Diarrhea, unspecified, Hyponatremia, Near syncope, Hypokalemia. - Bed requested for Telemetry/MedSurg (Inpatient). - Status is Inpatient Admission. em - Condition is Stable. - Problem is new. - Symptoms have improved. UTI on Admission? No Signatures: Dispatcher [employer] EDSalvador Gillespie MD MD cha Munoz, Edgar, HYDROCHLORIC ACID OPERATOR HYDROCHLORIC ACID OPERATOR em Yamel Escobedo RN RN iw Bk Leon, ASSEMBLY DEPARTMENT SUPERVISOR ASSEMBLY DEPARTMENT SUPERVISOR pm1 oSfia Dsos RN RN df Corrections: (The following items were deleted from the chart) 11/26 10:53 10:41 Potassium Chloride 20 mEq IV at calculated rate once; administer over 2 hours pm1 ordered. pm1 11:32 09:06 Urine Culture+BA.LAB.BRZ ordered. EDMS EDMS 11:38 09:06 Abdomen Pelvis W Con+CT.RAD.BRZ ordered. EDMS EDMS
[2017-11-26] MEDS ORDERED: ONDANSETRON 4 MG/2 ML VIAL IV PRN (13:46)
[2017-11-26] MEDS ORDERED: ACETAMINOPHEN 500 MG TAB PO PRN (13:46)
--- NOTE | 2017-11-26 14:01 | P.HP ---
Certification for Inpatient Patient admitted to: Inpatient With expected LOS: >2 Midnights Practitioner: I am a practitioner with admitting privileges, knowledge of patient current condition, hospital course, and medical plan of care. Services: Services provided to patient in accordance with Admission requirements found in Title 42 Section 412.3 of the Code of Federal Regulations Patient History Date of Service: 11/26/17 Reason for admission: weakness, confusion History of Present Illness: Ms Harris is a 77 years old woman with history of CKD, hypothyroidism, HTN, who was admitted about 2 weeks ago due to hyponatreamia and CHF exacerbation. At the time o discharge, family states that she was started on 15 new medications. Since the patient got home, she was feeling progressively more weak. She has not had nausea or vomiting, fever or chills. Today the patient start with lower abdominal pain, associated with diarrhea. Family also noted that she is confused , and has slurred speech. At the time of december examination, she has significant dry mouth, blood pressure was in the lower side. Lab work significant for hyponatremia 128, hypochloremia, hypokalemia, and worsening renal function, creatinine 3.36 from 1.96. Allergies baclofen Allergy (Intermediate, Verified 09/27/11 04:14) Shortness of breath prochlorperazine [From Compazine] Allergy (Intermediate, Verified 09/09/15 05:51 ) Anaphylaxis cefepime Allergy (Mild, Verified 09/27/11 04:15) Rash ondansetron HCl [From Zofran] Allergy (Mild, Verified 09/27/11 04:14) Rash prochlorperazine edisylate [From Compazine] Allergy (Mild, Verified 09/27/11 04: 14) Rash prochlorperazine maleate [From Compazine] Allergy (Mild, Verified 09/27/11 04:14 ) Rash vancomycin Allergy (Mild, Verified 09/27/11 04:14) Rash Home Medications: Ipratropium/Albuterol Sulfate [Combivent Respimat Inhal [place]] 1 puff IH Q6HP PRN 11/10/17 Ipratropium/Albuterol Sulfate [Iprat-Albut 0.5-3(2.5) mg/3 ml] 1 vial NEB Q8HP PRN 11/10/17 Alprazolam [Xanax] 0.25 mg PO TID PRN #30 tab 11/17/17 Arformoterol Tartrate [Brovana] 15 mcg NEB BIDRESP #5 vial.neb 11/17/17 Buspirone HCl 30 mg PO DAILY #30 tablet 11/17/17 Furosemide [Lasix] 40 mg PO DAILY #30 tab 11/17/17 Hydralazine HCl [Apresoline] 100 mg PO TID #180 tablet 11/17/17 Labetalol HCl [Trandate] 400 mg PO BID #120 tablet 11/17/17 Levothyroxine [Synthroid] 112 mcg PO [id number] #30 tab 11/17/17 Lubiprostone [Amitiza] 24 mcg PO DAILY #30 cap 11/17/17 Metronidazole [Flagyl] 500 mg PO Q8H #9 tablet 11/17/17 Oxybutynin Chloride 5 mg PO TID #60 tablet 11/17/17 Prednisone [Deltasone] 20 mg PO DAILY #30 tab 11/17/17 Sertraline [Zoloft] 100 mg PO DAILY #30 tab 11/17/17 Sucralfate [Carafate -Tab] 1 gm PO QID #120 tab 11/17/17 - Past Medical/Surgical History Diabetic: No -: asthma -: HTN -: COPD -: GERD -: hypothyroid -: spastic bladder -: cholecystectomy -: appendectomy -: hysterectomy -: tonsillectomy -: L hip sx -: x2 abdominal hernia repairs -: right arm sx -: right ankle sx - Family History Family History: Reviewed- Non-Contributory - Social History Alcohol use: No CD- Drugs: No Caffeine use: Yes Review of Systems 10-point ROS is otherwise unremarkable Physical Examination - Physical Exam General: Alert, In no apparent distress HEENT: Atraumatic, PERRLA, Other (mucous membr dry), EOMI, Sclerae nonicteric Neck: Supple, 2+ carotid pulse no bruit, No LAD, Without JVD or thyroid abnormality Respiratory: Clear to auscultation bilaterally, Normal air movement Cardiovascular: Regular rate/rhythm, Normal S1 S2 Gastrointestinal: Normal bowel sounds, Tenderness (tender to palpation on suprapubic area.) Musculoskeletal: No tenderness Integumentary: No rashes Neurological: Normal speech, Normal strength at 5/5 x4 extr, Normal tone, Normal affect Lymphatics: No axilla or inguinal lymphadenopathy - Studies Laboratory Data (last 24 hrs) 11/26/17 09:30: PT 12.7 H, INR 1.08, APTT 23.3 L 11/26/17 09:30: WBC 9.0 D, Hgb 10.5 L, Hct 30.8 L, Plt Count 163 11/26/17 09:30: B-Natriuretic Peptide 47 11/26/17 09:30: Sodium 128 L, Potassium 2.6 L*, BUN 82 H D, Creatinine 3.36 H D , Glucose 152 H, Magnesium 1.7 L, Total Bilirubin 0.6, AST 39, ALT 29, Alkaline Phosphatase 49, Lipase 29 Assessment and Plan - Problems (Diagnosis) (1) Hypokalemia Current Visit: Yes Status: Acute (2) Acute kidney injury superimposed on CKD Current Visit: Yes Status: Acute (3) Dehydration Current Visit: Yes Status: Acute (4) Acute encephalopathy Current Visit: Yes Status: Acute (5) Hyponatremia Onset Date: 11/12/17 Current Visit: No Status: Acute (6) Essential (primary) hypertension Onset Date: 11/12/17 Current Visit: No Status: Chronic - Plan Ms Harris will be admitted to the hospital due to acute encephalopathy, hyponatremia, hypokalemia, volume depletion, and urinary retention. WBC WNL, no fever. Will continue with IV NS, for volume repletion and gradual increase of sodium. Will consult nephrology team for evaluation and recommendations on her acute on CKD. - Advance Directives Does patient have a Living Will: No Does patient have a Durable POA for Healthcare: No - Code Status/Comfort Care Code Status Assessed: Yes Code Status: Full Code
[2017-11-26] MEDS: NA CHLORIDE 0.9% 1,000 ML IV SCH (17:19)
[2017-11-26 17:56] VITALS: BMI 36.1
[2017-11-26] MEDS ORDERED: HOME MED 1 EA UNK (Ipratropium/Albuterol Sulfate [Iprat-Albut 0.5-3(2.5) Mg/3 Ml] 1 VIAL) NEB PRN (21:27)
[2017-11-26] MEDS ORDERED: [UNRECOGNIZED DRUG - OTHER] IH PRN (21:27)
[2017-11-26] MEDS ORDERED: IPRATROPIUM IH PRN (21:27)
[2017-11-26] MEDS ORDERED: ALBUTEROL SULFATE IH PRN (21:27)
[2017-11-26] MEDS ORDERED: HYDROCORTISONE SUC 100 MG INJ IV ONE (21:29)
[2017-11-26 21:59] LABS: Potassium 3.1 mEq/L (3.6-5.0)
[2017-11-26] MEDS: ALPRAZOLAM 0.25 MG TABLET PO PRN (22:08)
[2017-11-26] MEDS ORDERED: POTASSIUM CL SA 10 MEQ TAB PO ONE (23:00)
[2017-11-26] MEDS ORDERED: POTASSIUM 25 MEQ EFFERV TAB PO ONE (23:11)
[2017-11-27] MEDS: NA CHLORIDE 0.9% 1,000 ML IV SCH ×3 (04:46→17:53)
[2017-11-27] MEDS: LEVOTHYROXINE SOD 0.112 MG TAB PO SCH (05:16)
[2017-11-27 05:44] LABS: Absolute Lymphocytes (CBC) 0.6 K/uL (0.7-4.9); Absolute Monocytes 0.5 K/uL (0.1-1.3); Absolute Neutrophil 5.9 K/uL (1.8-8.0); Basophils % 0.1 % (0-1.3); Eosinophils % 0.2 % (0-4.4); Hematocrit 27.6 % (36.0-45.0); Lymphocytes % 8.9 % (15.3-44.8); MCH 29.5 pg (27.0-35.0); MCV 88.2 fL (80-100); MPV 9.5 fL (7.6-11.3); Monocytes % 6.4 % (3.3-12.3); RBC Red Blood Cell Count 3.13 M/uL (3.86-4.86)
[2017-11-27 06:14] LABS: Magnesium 1.9 mg/dL (1.8-2.5); Phosphorus 3.5 mg/dL (2.5-4.3); Uric Acid 11.4 mg/dL (2.6-8.0)
[2017-11-27] MEDS: ARFORMOTEROL TARTRATE 15 MCG/2 ML VIAL.NEB NEB SCH ×2 (07:30→20:22)
[2017-11-27] MEDS ORDERED: ALBUTEROL 2.5 MG/3 ML NEB SOL IH PRN (07:55)
[2017-11-27] MEDS ORDERED: IPRATROPIUM BROM 0.5MG/2.5ML IH PRN (07:55)
[2017-11-27 08:04] LABS: Urine Appearance CLEAR; Urine Bilirubin NEGATIVE (NEG); Urine Blood NEGATIVE (NEG); Urine Color YELLOW; Urine Glucose NEGATIVE (NEG); Urine Protein NEGATIVE (NEG); Urine Urobilinogen 0.2 mg/dL (0.2-1.0); Urine pH 6.5 (5.0-7.0)
[2017-11-27] MEDS: PANTOPRAZOLE 40MG TABLET PO SCH (08:21)
[2017-11-27] MEDS: SERTRALINE HCL 100 MG TAB PO SCH (08:21)
[2017-11-27] MEDS: ALPRAZOLAM 0.25 MG TABLET PO PRN ×3 (08:21→22:10)
[2017-11-27] MEDS: predniSONE 20 MG TAB PO SCH (08:22)
[2017-11-27] MEDS: BUSPIRONE HCL 15 MG TABLET PO SCH (08:23)
[2017-11-27] MEDS: SUCRALFATE 1 GM TABLET PO SCH ×4 (08:23→22:10)
[2017-11-27] MEDS: HOME MED 1 EA UNK (Budesonide/Formoterol Fumarate [Symbicort 80-4.5 Mcg Inhaler] 1 PUFF) IH SCH ×2 (08:23→21:00)
[2017-11-27 11:07] LABS: Urine Bacteria 20-50 /HPF (<20)
[2017-11-27 11:09] LABS: Urine Culture Reflex Order NOT NEEDED
--- NOTE | 2017-11-27 17:57 | P.PN ---
Subjective Date of Service: 11/27/17 Chief Complaint: weakness, confusion She is significantly better today. Feels stronger. Physical Examination - Vital Signs Temperature: 98.1 F Blood Pressure: 122/59 Pulse: 75 Respirations: 18 Pulse Ox (%): 92 Assessment And Plan - Current Problems (Diagnosis) (1) Hypokalemia Onset Date: 11/27/17 Current Visit: Yes Status: Acute (2) Acute kidney injury superimposed on CKD Onset Date: 11/27/17 Current Visit: Yes Status: Acute (3) Dehydration Onset Date: 11/27/17 Current Visit: Yes Status: Acute (4) Acute encephalopathy Onset Date: 11/27/17 Current Visit: Yes Status: Acute (5) Hyponatremia Onset Date: 11/12/17 Current Visit: Yes Status: Acute (6) Essential (primary) hypertension Onset Date: 11/12/17 Current Visit: Yes Status: Chronic - Plan #1 hyponatremia: improving, sodium level increasing slowly and steady. Will decrease IV fluids rate, to avoid overload. #2 acute kidney injury: as above improving with IV fluids. #3 plan: advance diet, check labs in AM, if continue improving discharge home tomorrow.
[2017-11-27] MEDS: HYDRALAZINE HCL 25 MG TABLET PO SCH (22:10)
[2017-11-27] MEDS: LABETALOL HCL 100 MG TAB PO SCH (22:10)
--- NOTE | 2017-11-27 22:55 | P.CNS ---
Date of Consult: 11/26/17 Reason for Consult: MAGAN Requesting Physician: Mick Nieto Primary Care Provider: Jaydon Quiroga Chief Complaint: weakness, confusion History of Present Illness: Ms Harris is a 77 years old woman with history of CKD, hypothyroidism, HTN, who was admitted about 2 weeks ago due to hyponatreamia and CHF exacerbation. At the time o discharge, family states that she was started on 15 new medications. Since the patient got home, she was feeling progressively more weak. She has not had nausea or vomiting, fever or chills. Today the patient start with lower abdominal pain, associated with diarrhea. Family also noted that she is confused , and has slurred speech. At the time of december examination, she has significant dry mouth, blood pressure was in the lower side. Lab work significant for hyponatremia 128, hypochloremia, hypokalemia, and worsening renal function, creatinine 3.36 from 1.96. 12:00 This 77 yrs old Female presents to ER via EMS with complaints of Abdominal pm1 pain, diarrhea, and possible syncope. 12:00 The patient presents with abdominal pain suprapubic area. Onset: The symptoms/episode pm1 began/occurred this morning. The symptoms do not radiate. Associated signs and symptoms: Pertinent positives: diarrhea, Pertinent negatives: nausea and vomiting, chest pain, dysuria, fever, shortness of breath. The symptoms are described as crampy, sharp. Modifying factors: The symptoms are alleviated by nothing, the symptoms are aggravated by nothing. Severity of pain: in the emergency department the pain is actually worse. The patient has not experienced similar symptoms in the past. The patient has been recently been admitted at [facility], was discharged last week, for apparently unrelated complaints, CHF exacerbation. Patient with suprapubic abdominal pain and diarrhea that started this AM. Patient experienced same pain that caused her to double over and possibly have a near syncopal episode. Patient leaned forward on her electric wheelchair and drove into her TV. Patient recalls the events. Allergies baclofen Allergy (Intermediate, Verified 11/26/17 20:35) Shortness of breath prochlorperazine [From Compazine] Allergy (Intermediate, Verified 11/26/17 20:35 ) Anaphylaxis cefepime Allergy (Mild, Verified 11/26/17 20:35) Rash ondansetron HCl [From Zofran] Allergy (Mild, Verified 11/26/17 20:35) Rash prochlorperazine edisylate [From Compazine] Allergy (Mild, Verified 11/26/17 20: 35) Rash prochlorperazine maleate [From Compazine] Allergy (Mild, Verified 11/26/17 20:35 ) Rash vancomycin Allergy (Mild, Verified 11/26/17 20:35) Rash iodine Allergy (Verified 11/26/17 20:35) Nausea/Vomiting nitrofurantoin [From Macrobid] Allergy (Verified 11/26/17 20:35) Unknown Home medications list reviewed: Yes Home Medications: Ipratropium/Albuterol Sulfate [Combivent Respimat Inhal [place]] 1 puff IH Q6HP PRN 11/10/17 Ipratropium/Albuterol Sulfate [Iprat-Albut 0.5-3(2.5) mg/3 ml] 1 vial NEB Q8HP PRN 11/10/17 Alprazolam [Xanax] 0.25 mg PO TID PRN #30 tab 11/17/17 Arformoterol Tartrate [Brovana] 15 mcg NEB BIDRESP #5 vial.neb 11/17/17 Buspirone HCl 30 mg PO DAILY #30 tablet 11/17/17 Furosemide [Lasix] 40 mg PO DAILY #30 tab 11/17/17 Hydralazine HCl [Apresoline] 100 mg PO TID #180 tablet 11/17/17 Labetalol HCl [Trandate] 400 mg PO BID #120 tablet 11/17/17 Levothyroxine [Synthroid] 112 mcg PO [id number] #30 tab 11/17/17 Lubiprostone [Amitiza] 24 mcg PO DAILY #30 cap 11/17/17 Oxybutynin Chloride 5 mg PO TID #60 tablet 11/17/17 Prednisone [Deltasone] 20 mg PO DAILY #30 tab 11/17/17 Sertraline [Zoloft] 100 mg PO DAILY #30 tab 11/17/17 Sucralfate [Carafate -Tab] 1 gm PO QID #120 tab 11/17/17 Budesonide/Formoterol Fumarate [Symbicort 80-4.5 Mcg Inhaler] 1 puff IH BID Dexlansoprazole [Dexilant] 60 mg PO DAILY 11/26/17 - Past Medical/Surgical History Diabetic: No -: asthma -: HTN -: COPD -: GERD -: hypothyroid -: spastic bladder -: cholecystectomy -: appendectomy -: hysterectomy -: tonsillectomy -: L hip sx -: x2 abdominal hernia repairs -: right arm sx -: right ankle sx - Social History Smoking Status: Never smoker Alcohol use: No CD- Drugs: No Caffeine use: Yes Place of Residence: Home Review of Systems 10-point ROS is otherwise unremarkable General: Weakness, Malaise Respiratory: SOB with Excertion Neurological: Weakness Physical Examination Temp Pulse Resp BP Pulse Ox 98.4 F 77 16 143/86 H 97 11/27/17 20:00 11/27/17 22:10 11/27/17 20:00 11/27/17 22:10 11/27/17 20:00 General: Severe distress, Delirious HEENT: Atraumatic, Normocephalic Neck: Supple Respiratory: Clear to auscultation bilaterally Cardiovascular: No edema, Regular rate/rhythm, No gallops Gastrointestinal: Distended Musculoskeletal: No clubbing, No contractures, No warmth Integumentary: No rashes, No significant lesion Neurological: Normal speech Blood work reviewed in the chart. Na 128; K 2.6; Cr 3.36 Imagings Data: Reason for Exam: ABD PAIN Report Status: Signed EXAM DESCRIPTION: CT - Abdomen Pelvis Wo Contrast - 11/26/2017 12:02 pm CLINICAL HISTORY: Syncope, abdominal pain, diarrhea COMPARISON: CT imaging February 2016. TECHNIQUE: Axial [address] imaging of the abdomen and pelvis was performed without IV contrast. No IV contrast was given because of allergy, abnormal renal function, patient refusal or physician request. Oral contrast was given. All CT scans are performed using dose optimization technique as appropriate and may include automated exposure control or mA/KV adjustment according to patient size. FINDINGS: No suspicious findings in the lung bases. No pericardial thickening or effusion. The liver, spleen and pancreas show no suspicious findings on non-contrast imaging. Gallbladder is absent. No biliary tree dilatation. No hydronephrosis or suspicious renal mass. Right kidney is much smaller than the left. This matches prior imaging. No significant adrenal finding. Isodense renal masses and pyelonephritis cannot be excluded in the absence of IV contrast. The urinary bladder is without significant finding. Uterus is absent. Ovaries are absent or atrophic. Moderately large hiatal hernia is present with approximately 30% of the stomach intrathoracic. No clear change to the stomach from prior imaging. No acute large or small bowel finding. No free air, free fluid or inflammatory stranding. No mass or bulky lymphadenopathy. The very small fat only umbilical hernia has not changed. No acute or destructive bone process seen. Femoral head and neck have been resected. Posttraumatic or degenerative change noted to the acetabulum. There is superior migration of the greater trochanter in the absence of the femoral head. This is a chronic presentation of the hip joint. IMPRESSION: Non-contrast enhanced CT abdomen and pelvis imaging show no significant or suspicious finding. The above detailed findings are similar to prior imaging. Conclusions/Impression: A/ MAGAN likely due to volume depletion. CKD IV. Hyponatremia. Hypokalemia. Hypomagnesemia. Anemia in chronic illness. HTN with CKD. P/ Continue current POC and Medications. Agree with IVF. Replete potassium. Replete magnesium. No NSAIDs. AM labs. Daily weight. Thank you kindly for the consultation.
--- NOTE | 2017-11-27 23:12 | P.PN ---
Date of Service: 11/27/17 Vital Signs Temp Pulse Resp BP Pulse Ox 98.4 F 77 16 143/86 H 97 11/27/17 20:00 11/27/17 22:10 11/27/17 20:00 11/27/17 22:10 11/27/17 20:00 Medications Acetaminophen (Tylenol -Extra Strength) 500 mg PO Q4HP PRN PRN Reason: [id number] Stop: 12/26/17 13:47 Last Admin: 11/27/17 08:21 Dose: 500 mg Albuterol Sulfate (Proventil 0.083% Neb Soln) 2.5 mg IH Q8HP PRN PRN Reason: SHORTNESS OF BREATH Stop: 12/27/17 07:56 Alprazolam (Xanax) 0.25 mg PO TID PRN PRN Reason: ANXIETY Stop: 12/26/17 21:28 Last Admin: 11/27/17 22:10 Dose: 0.25 mg Arformoterol Tartrate (Brovana) 15 mcg NEB BIDRESP ABDULKADIR Stop: 12/27/17 08:01 Last Admin: 11/27/17 20:22 Dose: 15 mcg Buspirone HCl (Buspirone Hcl) 30 mg PO DAILY ABDULKADIR Stop: 12/27/17 09:01 Last Admin: 11/27/17 08:23 Dose: 30 mg Home Med (Budesonide/Formoterol Fumarate [Symbicort 80-4.5 Mcg Inhaler]) 1 puff IH BID ABDULKADIR Stop: 12/27/17 09:01 Last Admin: 11/27/17 21:00 Dose: Not Given Hydralazine HCl (Apresoline) 100 mg PO TID ABDULKADIR Stop: 12/27/17 21:28 Last Admin: 11/27/17 22:10 Dose: 100 mg Sodium Chloride (Ns 1000 Ml Ivbag) 1,000 mls @ 75 mls/hr IV .[id number] ABDULKADIR Stop: 12/27/17 17:54 Last Admin: 11/27/17 17:53 Dose: 1,000 mls Ipratropium [place] (Atrovent Neb) 0.5 mg IH Q8HP PRN PRN Reason: SHORTNESS OF BREATH Stop: 12/27/17 07:56 Labetalol HCl (Trandate) 400 mg PO BID ABDULKADIR Stop: 12/27/17 21:28 Last Admin: 11/27/17 22:10 Dose: 400 mg Levothyroxine Sodium (Synthroid) 0.112 mg PO [id number] ABDULKADIR Stop: 12/27/17 06:01 Last Admin: 11/27/17 05:16 Dose: 0.112 mg Ondansetron HCl (Zofran) 4 mg IV Q6HP PRN PRN Reason: NAUSEA / VOMITING Stop: 12/26/17 13:47 Pantoprazole Sodium (Protonix Tab) 40 mg PO DAILY ABDULKADIR Stop: 12/27/17 09:01 Last Admin: 11/27/17 08:21 Dose: 40 mg Prednisone (Deltasone) 20 mg PO DAILY ABDULKADIR Stop: 12/27/17 09:01 Last Admin: 11/27/17 08:22 Dose: 20 mg Sertraline HCl (Zoloft) 100 mg PO DAILY ABDULKADIR Stop: 12/27/17 09:01 Last Admin: 11/27/17 08:21 Dose: 100 mg Sodium Chloride (Normal Saline Flush) 10 ml IV BID ABDULKADIR Stop: 12/26/17 21:01 Last Admin: 11/27/17 22:11 Dose: 10 ml Sucralfate (Carafate -Tab) 1 gm PO QID ABDULKADIR Stop: 12/27/17 09:01 Last Admin: 11/27/17 22:10 Dose: 1 gm Microbiology Results 11/26/17 11:30 Catheterized Urine [place] Count - Preliminary BETWEEN 10,000 & 100,000 CFU/ML 11/26/17 11:30 Catheterized Urine - Preliminary Assessment/ Plan: Nephrology. Feeling better today but still with malaise. Diarrhea. CPS stable without CP or SOB. No acute events overnight. Vitals, medications, blood work and imaging reviewed in the chart. General: Severe distress, Delirious HEENT: Atraumatic, Normocephalic Neck: Supple Respiratory: Clear to auscultation bilaterally Cardiovascular: No edema, Regular rate/rhythm, No gallops Gastrointestinal: Distended Musculoskeletal: No clubbing, No contractures, No warmth Integumentary: No rashes, No significant lesion Neurological: Normal speech Blood work reviewed in the chart. Initial labs: Na 128; K 2.6; Cr 3.36 Imagings Data: Reason for Exam: ABD PAIN Report Status: Signed EXAM DESCRIPTION: CT - Abdomen Pelvis Wo Contrast - 11/26/2017 12:02 pm CLINICAL HISTORY: Syncope, abdominal pain, diarrhea COMPARISON: CT imaging February 2016. TECHNIQUE: Axial [address] imaging of the abdomen and pelvis was performed without IV contrast. No IV contrast was given because of allergy, abnormal renal function, patient refusal or physician request. Oral contrast was given. All CT scans are performed using dose optimization technique as appropriate and may include automated exposure control or mA/KV adjustment according to patient size. FINDINGS: No suspicious findings in the lung bases. No pericardial thickening or effusion. The liver, spleen and pancreas show no suspicious findings on non-contrast imaging. Gallbladder is absent. No biliary tree dilatation. No hydronephrosis or suspicious renal mass. Right kidney is much smaller than the left. This matches prior imaging. No significant adrenal finding. Isodense renal masses and pyelonephritis cannot be excluded in the absence of IV contrast. The urinary bladder is without significant finding. Uterus is absent. Ovaries are absent or atrophic. Moderately large hiatal hernia is present with approximately 30% of the stomach intrathoracic. No clear change to the stomach from prior imaging. No acute large or small bowel finding. No free air, free fluid or inflammatory stranding. No mass or bulky lymphadenopathy. The very small fat only umbilical hernia has not changed. No acute or destructive bone process seen. Femoral head and neck have been resected. Posttraumatic or degenerative change noted to the acetabulum. There is superior migration of the greater trochanter in the absence of the femoral head. This is a chronic presentation of the hip joint. IMPRESSION: Non-contrast enhanced CT abdomen and pelvis imaging show no significant or suspicious finding. The above detailed findings are similar to prior imaging. Conclusions/Impression: A/ MAGAN likely due to volume depletion. CKD IV. Hyponatremia. Hypokalemia. Hypomagnesemia. Anemia in chronic illness. HTN with CKD. Adrenal insufficiency? P/ Continue current POC and Medications. Continue IVF. Follow up cultures. No NSAIDs. AM labs. Daily weight.
[2017-11-28 05:27] LABS: Absolute Lymphocytes (CBC) 0.8 K/uL (0.7-4.9); Absolute Monocytes 0.4 K/uL (0.1-1.3); Basophils % 0.3 % (0-1.3); Eosinophils % 1.3 % (0-4.4); Hematocrit 27.8 % (36.0-45.0); Lymphocytes % 15.5 % (15.3-44.8); MCH 30.1 pg (27.0-35.0); MCV 89.7 fL (80-100); MPV 9.8 fL (7.6-11.3); Monocytes % 7.9 % (3.3-12.3)
[2017-11-28 05:44] LABS: Potassium 3.5 mEq/L (3.6-5.0)
[2017-11-28] MEDS: LEVOTHYROXINE SOD 0.112 MG TAB PO SCH (06:06)
[2017-11-28] MEDS: ALPRAZOLAM 0.25 MG TABLET PO PRN ×2 (06:06→21:51)
[2017-11-28] MEDS: NA CHLORIDE 0.9% 1,000 ML IV SCH ×2 (06:06→13:04)
[2017-11-28] MEDS ORDERED: POTASSIUM 25 MEQ EFFERV TAB PO ONE (06:07)
[2017-11-28] MEDS: ARFORMOTEROL TARTRATE 15 MCG/2 ML VIAL.NEB NEB SCH ×2 (07:56→19:47)
[2017-11-28] MEDS: HOME MED 1 EA UNK (Budesonide/Formoterol Fumarate [Symbicort 80-4.5 Mcg Inhaler] 1 PUFF) IH SCH ×2 (09:00→19:55)
[2017-11-28] MEDS: HYDRALAZINE HCL 25 MG TABLET PO SCH ×3 (09:24→21:48)
[2017-11-28] MEDS: BUSPIRONE HCL 15 MG TABLET PO SCH (09:25)
[2017-11-28] MEDS: LABETALOL HCL 100 MG TAB PO SCH ×2 (09:26→21:49)
[2017-11-28] MEDS: SUCRALFATE 1 GM TABLET PO SCH ×4 (09:27→21:48)
[2017-11-28] MEDS: predniSONE 20 MG TAB PO SCH (09:27)
[2017-11-28] MEDS: PANTOPRAZOLE 40MG TABLET PO SCH (09:28)
[2017-11-28] MEDS: SERTRALINE HCL 100 MG TAB PO SCH (09:28)
--- NOTE | 2017-11-28 17:00 | P.PN ---
Subjective Date of Service: 11/28/17 Primary Care Provider: Jaydon Quiroga Chief Complaint: weakness, confusion The patient was slightly agitated last night. This morning she was cooperative with her care, however, some what confused. Physical Examination - Vital Signs Temperature: 97.8 F Blood Pressure: 146/66 Pulse: 75 Respirations: 18 Pulse Ox (%): 95 - Physical Exam General: Alert, In no apparent distress Respiratory: Clear to auscultation bilaterally, Normal air movement Cardiovascular: Regular rate/rhythm, Normal S1 S2 Gastrointestinal: Normal bowel sounds, No tenderness Musculoskeletal: No tenderness Integumentary: No rashes - Studies Microbiology Data (last 24 hrs): 11/26/17 10:30 Stool Clostridium difficile Toxin Assay - Final 11/26/17 10:30 Stool Fecal Leukocyte Stain - Final 11/26/17 11:30 Catheterized Urine [place] Count - Final BETWEEN 10,000 & 100,000 CFU/ML 11/26/17 11:30 Catheterized Urine - Final Enterococcus Faecalis Medications List Reviewed: Yes Assessment And Plan - Current Problems (Diagnosis) (1) Hypokalemia Onset Date: 11/27/17 Current Visit: Yes Status: Acute (2) Acute kidney injury superimposed on CKD Onset Date: 11/27/17 Current Visit: Yes Status: Acute (3) Dehydration Onset Date: 11/27/17 Current Visit: Yes Status: Acute (4) Acute encephalopathy Onset Date: 11/27/17 Current Visit: Yes Status: Acute (5) Hyponatremia Onset Date: 11/12/17 Current Visit: Yes Status: Acute (6) Essential (primary) hypertension Onset Date: 11/12/17 Current Visit: Yes Status: Chronic - Plan #1 hyponatremia: Continue gradually improving, sodium level is 134 today. Continue IV fluids. #2 acute kidney injury: improving, Dr Guerra on the case. #3 plan: Continue IV fluids for at least 1 more night, according to Dr Guerra recommendations.
[2017-11-28] MEDS: AMPICILLIN TRIHYDRATE 250 MG CAP PO SCH (17:46)
--- NOTE | 2017-11-28 17:56 | PN ---
Date of Progress Note: 11/28/2017 Subjective: The patient is doing okay. She is having multiple complaints, which were nonrelevant at this point. She is having diarrhea for which she is on C. diff precautions at this time. Objective: Vital Signs: Have been reviewed and are stable. General: She is an obese female, in no acute distress. Lungs: Clear to auscultation. Abdomen: Obese and nontender. Extremities: Without any evidence of edema was noted. Laboratory Data: Showing sodium improving to 134, potassium of 3.5, chloride of 96, BUN 54, and crea tinine improving to 1.6. CBC showing hemoglobin of 9.3, hematocrit of 27.8, and platelet count of 12 0. Current Medications: Include normal saline at 75 cc an hour, labetalol 400 mg b.i.d., hydralazine 10 0 mg t.i.d., potassium supplement, sucralfate, Zoloft, and prednisone 20 mg a day. Impression: 1.Acute renal insufficiency secondary to acute tubular necrosis. The patient has had renal insuffic iency secondary to acute tubular necrosis and is improving at this time. 2.Hyponatremia, believed to be secondary to adrenal insufficiency. Has been started on prednisone 2 0 mg a day. She needs to be discharged on the same dose of medications. 3.History of chronic renal insufficiency with unilateral kidney. The patient needs absolutely avoid hypotension. We will go ahead and decrease the hydralazine to 50 mg 3 times a day and decrease the labetalol to 200 mg b.i.d. and monitor her blood pressures with avoiding episodes of hypotension. 4.Hypokalemia. The patient is on potassium supplements. Continue to monitor. 5.Congestive heart failure, currently stable. 6.Diarrhea, being ruled out for Clostridium difficile. Plan: The patient is overall doing okay. I will go ahead and stop the fluids later on this evening and we will plan to check labs in the morning. Her C. diff is still pending. She does have UTI and urine culture is showing Enterococcus faecalis, which is sensitive to ampicillin. The patient is not on any antibiotics at this time. I will go ahead and get her started on ampicillin to treat her UTI and monitor her closely. The plan was discussed with the patient and her at bedside. JESSICA/ALL Voice ID: [id number] Report ID: [id number]
[2017-11-29] MEDS: AMPICILLIN TRIHYDRATE 250 MG CAP PO SCH ×3 (01:05→12:25)
[2017-11-29] MEDS: NA CHLORIDE 0.9% 1,000 ML IV SCH (02:24)
[2017-11-29] MEDS ORDERED: LORazepam 2 MG/ML VIAL IV ONE (04:34)
[2017-11-29 04:55] LABS: Absolute Lymphocytes (CBC) 0.7 K/uL (0.7-4.9); Absolute Monocytes 0.4 K/uL (0.1-1.3); Basophils % 0.3 % (0-1.3); Hematocrit 29.4 % (36.0-45.0); Lymphocytes % 11.7 % (15.3-44.8); MCH 29.7 pg (27.0-35.0); MCV 88.5 fL (80-100); MPV 9.9 fL (7.6-11.3); Monocytes % 6.9 % (3.3-12.3); RBC Red Blood Cell Count 3.32 M/uL (3.86-4.86)
[2017-11-29 05:19] LABS: Potassium 3.8 mEq/L (3.6-5.0)
[2017-11-29] MEDS: LEVOTHYROXINE SOD 0.112 MG TAB PO SCH (05:29)
[2017-11-29 05:45] LABS: Uric Acid 7.4 mg/dL (2.6-8.0)
[2017-11-29 06:11] VITALS: O2SAT 96
[2017-11-29] MEDS ORDERED: POTASSIUM 25 MEQ EFFERV TAB PO ONE ×2 (06:16→09:00)
[2017-11-29] MEDS: ARFORMOTEROL TARTRATE 15 MCG/2 ML VIAL.NEB NEB SCH (07:38)
[2017-11-29] MEDS: HOME MED 1 EA UNK (Budesonide/Formoterol Fumarate [Symbicort 80-4.5 Mcg Inhaler] 1 PUFF) IH SCH (09:00)
[2017-11-29] MEDS: HYDRALAZINE HCL 25 MG TABLET PO SCH ×2 (10:15→13:57)
[2017-11-29] MEDS: BUSPIRONE HCL 15 MG TABLET PO SCH (10:16)
[2017-11-29] MEDS: SUCRALFATE 1 GM TABLET PO SCH ×2 (10:16→12:25)
[2017-11-29] MEDS: predniSONE 20 MG TAB PO SCH (10:16)
[2017-11-29] MEDS: SERTRALINE HCL 100 MG TAB PO SCH (10:17)
[2017-11-29] MEDS: LABETALOL HCL 100 MG TAB PO SCH (10:17)
[2017-11-29] MEDS: PANTOPRAZOLE 40MG TABLET PO SCH (10:17)
--- NOTE | 2017-11-29 11:01 | P.DS ---
Admission Date: 11/26/17 Discharge Date: 11/29/17 Primary Care Provider: Jaydon Quiroga Disposition: ROUTINE DISCHARGE Discharge Condition: GOOD Reason for Admission: weakness, confusion - Problems (1) Hypokalemia Onset Date: 11/27/17 Current Visit: Yes Status: Acute (2) Acute kidney injury superimposed on CKD Onset Date: 11/27/17 Current Visit: Yes Status: Acute (3) Dehydration Onset Date: 11/27/17 Current Visit: Yes Status: Acute (4) Acute encephalopathy Onset Date: 11/27/17 Current Visit: Yes Status: Acute (5) Hyponatremia Onset Date: 11/12/17 Current Visit: Yes Status: Acute (6) Essential (primary) hypertension Onset Date: 11/12/17 Current Visit: Yes Status: Chronic Brief History of Present Illness: Ms Harris is a 77 years old woman with history of CKD, hypothyroidism, HTN, who was admitted about 2 weeks ago due to hyponatreamia and CHF exacerbation. At the time o discharge, family states that she was started on 15 new medications. Since the patient got home, she was feeling progressively more weak. She has not had nausea or vomiting, fever or chills. Today the patient start with lower abdominal pain, associated with diarrhea. Family also noted that she is confused , and has slurred speech. At the time of december examination, she has significant dry mouth, blood pressure was in the lower side. Lab work significant for hyponatremia 128, hypochloremia, hypokalemia, and worsening renal function, creatinine 3.36 from 1.96. Hospital Course: Ms Harris was admitted to the hospital due to weakness, confusion, secondary to volume depletion. Her kidney function was abnormal, creatinine at admission was 3.35, sodium was low 128. UA was abnormal consistent with UTI. The patient was treated with IV normal saline. She was followed up by construction superintendent along with us. Gradually her renal function improved and sodium level increased. Urine culture was positive for enterococcus faecalis. She was treated with ampicillin. As complications the patient has had mild agitation episodes and disorientation during night time, consistent with delirium. At this point she is clinically stable to be discharged home. She will be followed up by Dr Quiroga next week. Continue oral ampicillin for 7 more days. Vital Signs/Physical Exam: Temp Pulse Resp BP Pulse Ox 99.5 F 89 20 181/110 H 95 11/29/17 00:00 11/29/17 00:00 11/29/17 00:00 11/29/17 00:00 11/29/17 00:00 General: Alert Respiratory: Clear to auscultation bilaterally, Normal air movement Cardiovascular: Regular rate/rhythm, Normal S1 S2 Gastrointestinal: Normal bowel sounds, No tenderness Musculoskeletal: No tenderness Integumentary: No rashes Neurological: Normal speech, Normal tone, Normal affect Laboratory Data at Discharge: WBC 6.2 K/uL (4.3-10.9) D 11/29/17 04:21 Hgb 9.9 g/dL (12.0-15.0) L 11/29/17 04:21 Hct 29.4 % (36.0-45.0) L 11/29/17 04:21 Plt Count 108 K/uL (152-406) L 11/29/17 04:21 PT 12.7 SECONDS (9.5-12.5) H 11/26/17 09:30 INR 1.08 11/26/17 09:30 APTT 23.3 SECONDS (24.3-36.9) L 11/26/17 09:30 Sodium 134 mEq/L (135-145) L 11/29/17 04:21 Potassium 3.8 mEq/L (3.6-5.0) 11/29/17 04:21 BUN 36 mg/dL (6-20) H 11/29/17 04:21 Creatinine 1.32 mg/dL (0.44-1.00) H 11/29/17 04:21 Glucose 98 mg/dL (65-120) 11/29/17 04:21 Uric Acid 7.4 mg/dL (2.6-8.0) D 11/29/17 04:21 Phosphorus 3.5 mg/dL (2.5-4.3) 11/27/17 05:06 Magnesium 1.9 mg/dL (1.8-2.5) 11/27/17 05:06 Total Bilirubin 0.6 mg/dL (0.3-1.2) 11/26/17 09:30 AST 39 IU/L (10-42) 11/26/17 09:30 ALT 29 IU/L (10-60) 11/26/17 09:30 Alkaline Phosphatase 49 IU/L (42-121) 11/26/17 09:30 B-Natriuretic Peptide 47 pg/ml (<=100) 11/26/17 09:30 Lipase 29 U/L (22-51) 11/26/17 09:30 Home Medications: Ipratropium/Albuterol Sulfate [Combivent Respimat Inhal Marina] 1 puff IH Q6HP PRN 11/10/17 Ipratropium/Albuterol Sulfate [Iprat-Albut 0.5-3(2.5) mg/3 ml] 1 vial NEB Q8HP PRN 11/10/17 Alprazolam [Xanax*] 0.25 mg PO TID PRN #30 tab 11/17/17 Arformoterol Tartrate [Brovana] 15 mcg NEB BIDRESP #5 vial.neb 11/17/17 Buspirone HCl 30 mg PO DAILY #30 tablet 11/17/17 Hydralazine HCl [Apresoline] 100 mg PO TID #180 tablet 11/17/17 Labetalol HCl [Trandate] 400 mg PO BID #120 tablet 11/17/17 Levothyroxine [Synthroid*] 112 mcg PO INACB1CD #30 tab 11/17/17 Lubiprostone [Amitiza*] 24 mcg PO DAILY #30 cap 11/17/17 Oxybutynin Chloride 5 mg PO TID #60 tablet 11/17/17 Prednisone [Prednisone*] 20 mg PO DAILY #30 tab 11/17/17 Sertraline [Zoloft*] 100 mg PO DAILY #30 tab 11/17/17 Sucralfate [Carafate*] 1 gm PO QID #120 tab 11/17/17 Budesonide/Formoterol Fumarate [Symbicort 80-4.5 Mcg Inhaler] 1 puff IH BID Dexlansoprazole [Dexilant] 60 mg PO DAILY 11/26/17 Ampicillin Trihydrate [Ampicillin Trihydrate*] 500 mg PO Q6HR #28 cap 11/29/17 New Medications: Ampicillin Trihydrate [Ampicillin Trihydrate*] 500 mg PO Q6HR #28 cap Diet: Regular Activity: Fall precautions Followup: Jaydon Quiroga MD [ACTIVE - CAN ADMIT] - 1 Week Time spent managing pt's care (in minutes): 40
[2017-11-29 11:17] VITALS: BP 183/65; TEMP 98.4
--- NOTE | 2017-11-30 17:05 | P.PN ---
Date of Service: 11/29/17 Vital Signs Temp Pulse Resp BP Pulse Ox 98.4 F 81 20 183/65 H 98 11/29/17 08:00 11/29/17 08:00 11/29/17 08:00 11/29/17 08:00 11/29/17 08:00 Microbiology Results 11/26/17 10:30 Stool Culture & Sensitivity - Final 11/26/17 10:30 Stool Clostridium difficile Toxin Assay - Final 11/26/17 10:30 Stool Fecal Leukocyte Stain - Final 11/26/17 11:30 Catheterized Urine [place] Count - Final BETWEEN 10,000 & 100,000 CFU/ML 11/26/17 11:30 Catheterized Urine - Final Enterococcus Faecalis Assessment/ Plan: Nephrology. Feeling better today. Fatigue. CPS stable without CP or SOB. No acute events overnight. Vitals, medications, blood work and imaging reviewed in the chart. General: Severe distress, Delirious HEENT: Atraumatic, Normocephalic Neck: Supple Respiratory: Clear to auscultation bilaterally Cardiovascular: Trace edema, Regular rate/rhythm, No gallops Gastrointestinal: Distended Musculoskeletal: No clubbing, No contractures, No warmth Integumentary: No rashes, No significant lesion Neurological: Normal speech Blood work reviewed in the chart. Initial labs: Na 128; K 2.6; Cr 3.36 Imagings Data: Reason for Exam: ABD PAIN Report Status: Signed EXAM DESCRIPTION: CT - Abdomen Pelvis Wo Contrast - 11/26/2017 12:02 pm CLINICAL HISTORY: Syncope, abdominal pain, diarrhea COMPARISON: CT imaging February 2016. TECHNIQUE: Axial [address] imaging of the abdomen and pelvis was performed without IV contrast. No IV contrast was given because of allergy, abnormal renal function, patient refusal or physician request. Oral contrast was given. All CT scans are performed using dose optimization technique as appropriate and may include automated exposure control or mA/KV adjustment according to patient size. FINDINGS: No suspicious findings in the lung bases. No pericardial thickening or effusion. The liver, spleen and pancreas show no suspicious findings on non-contrast imaging. Gallbladder is absent. No biliary tree dilatation. No hydronephrosis or suspicious renal mass. Right kidney is much smaller than the left. This matches prior imaging. No significant adrenal finding. Isodense renal masses and pyelonephritis cannot be excluded in the absence of IV contrast. The urinary bladder is without significant finding. Uterus is absent. Ovaries are absent or atrophic. Moderately large hiatal hernia is present with approximately 30% of the stomach intrathoracic. No clear change to the stomach from prior imaging. No acute large or small bowel finding. No free air, free fluid or inflammatory stranding. No mass or bulky lymphadenopathy. The very small fat only umbilical hernia has not changed. No acute or destructive bone process seen. Femoral head and neck have been resected. Posttraumatic or degenerative change noted to the acetabulum. There is superior migration of the greater trochanter in the absence of the femoral head. This is a chronic presentation of the hip joint. IMPRESSION: Non-contrast enhanced CT abdomen and pelvis imaging show no significant or suspicious finding. The above detailed findings are similar to prior imaging. Conclusions/Impression: A/ MAGAN likely due to volume depletion. CKD IV. Hyponatremia. Hypokalemia. Hypomagnesemia. Anemia in chronic illness. HTN with CKD. Adrenal insufficiency? P/ Continue current POC and Medications. No NSAIDs. AM labs. Daily weight. Case discussed with Dr. Nieto. Plan for discharge today with Dr. Quiroga follow up soon.
== END 2017-11-29 14:08 | disposition home or self-care (01) | DRG 682 ==
LOC: ER 09:01 → ERHOLD 13:03 → 2ND 15:14
PROVIDERS: ADMIT Internal Medicine; ATTEND Internal Medicine
PROC: 0T9B70Z Drainage of Bladder with Drainage Device, Via Natural or Artificial Opening (ICD-10-PCS; 2017-11-26)
PROC: 5A09357 Assistance with Respiratory Ventilation, Less than 24 Consecutive Hours, Continuous Positive Airway Pressure (ICD-10-PCS; principal; 2017-11-28)
DX: N17.0 Acute kidney failure with tubular necrosis (principal); G93.40 Encephalopathy, unspecified; I13.0 Hypertensive heart and chronic kidney disease with heart failure and stage 1 through stage 4 chronic kidney disease, or unspecified chronic kidney disease; N39.0 Urinary tract infection, site not specified; E87.1 Hypo-osmolality and hyponatremia; E87.6 Hypokalemia; N17.9 Acute kidney failure, unspecified; N18.9 Chronic kidney disease, unspecified; I50.9 Heart failure, unspecified; E03.9 Hypothyroidism, unspecified; R19.7 Diarrhea, unspecified; J44.9 Chronic obstructive pulmonary disease, unspecified; K21.9 Gastro-esophageal reflux disease without esophagitis; E86.0 Dehydration; E83.42 Hypomagnesemia; D63.8 Anemia in other chronic diseases classified elsewhere
CPT/HCPCS: 36415; 51702; 70450; 71045; 74176; 80048; 80076; 81001; 81003; 82550; 82553; 83690; 83735; 83880; 83930; 83935; 84100; 84300; 84484; 84550; 85025; 85610; 85730; 87045; 87046; 87077; 87086; 87088; 87177; 87186; 87209; 87493; 89055; 93005; 94640; 94660; 94760; 96361; 96374; 96375; 99285; J1720; J2405; J3475; J7030; J7512; J7605

== ENCOUNTER 2017-12-25 14:17 | Observation (INO) | payer OTHER ==
[2017-12-25 15:12] LABS: Absolute Lymphocytes (CBC) 0.5 K/uL (0.7-4.9); Absolute Monocytes 0.3 K/uL (0.1-1.3); Absolute Neutrophil 3.8 K/uL (1.8-8.0); Basophils % 0.6 % (0-1.3); Eosinophils % 0.6 % (0-4.4); Lymphocytes % 9.9 % (15.3-44.8); MCH 30.3 pg (27.0-35.0); MCV 90.4 fL (80-100); MPV 8.4 fL (7.6-11.3); Monocytes % 7.4 % (3.3-12.3)
[2017-12-25 15:20] LABS: Magnesium 1.6 mg/dL (1.8-2.5)
--- NOTE | 2017-12-25 15:34 | RAD REPORT ---
EXAM DESCRIPTION: RAD - Chest Single View - 12/25/2017 3:19 pm CLINICAL HISTORY: Shortness of breath COMPARISON: November 26 TECHNIQUE: AP portable chest image was obtained 1508 hours . FINDINGS: No peripheral mass or consolidation. Vascular engorgement and interstitial markings are pr esent and progressive or new from prior imaging. Heart size has increased. Trachea is midline. No molly surable pleural effusion and no pneumothorax. No gross bony abnormality seen. No acute aortic finding s suspected. IMPRESSION: Mild CHF/volume overload pattern.
[2017-12-25] MEDS ORDERED: FUROSEMIDE 40 MG/4 ML VIAL ONE (16:06)
--- NOTE | 2017-12-25 16:41 | EDPHYS ---
Physician Documentation [facility] Name: Maura Harris Age: 77 yrs Sex: Female : 1940 Arrival Date: 12/25/2017 Time: 14:23 Bed 16 Private MD: Lalitha Allen ED Physician Gaurav Chow HPI: 12/25 14:47 This 77 yrs old Female presents to ER via EMS with complaints of Shortness Of rn Breath. 14:48 The patient has shortness of breath at rest, with light activity. Onset: The rn symptoms/episode began/occurred 1 week(s) ago. Duration: The symptoms are intermittent. The patient's shortness of breath is aggravated by exertion, talking. Severity of symptoms: At their worst the symptoms were moderate in the emergency department the symptoms are unchanged. The patient has experienced similar episodes in the past. Reports swelling all over, + cough, +sob, slowly worsening, has been off her lasix for some time since last admission because of renal failure, states swelling is worse than normal. . Historical: - Allergies: 14:32 BACLOFEN; ed1 14:32 cefepime; ed1 14:32 prochlorperazine Edisylate; ed1 14:32 Vancomycin; ed1 14:32 Ondansetron HCl; ed1 14:32 Compazine; ed1 14:32 Macrobid; ed1 - Home Meds: 14:32 Multiple Vitamins with Iron oral 1 tab oral daily [Active]; amlodipine 2.5 mg tab 1 tab ed1 once daily [Active]; doxazosin 5mg Oral tab 1 tab once daily [Active]; furosemide 40 mg Oral tab 1 tab once daily [Active]; labetalol 200 mg Oral tab 1 tab 2 times per day [Active]; levothyroxine 100 mcg tab [Active]; oxybutynin chloride 5 mg Oral tr24 1 tab once daily [Active]; sertraline 100 mg Oral tab 1 tab once daily [Active]; sodium polystyrene sulfonate Oral powd 20 mL 2 times per day [Active]; - PMHx: 14:32 Hypothyroidism; Hypertension; COPD; GERD; lymphedema; retained cholelithiasis; ed1 - PSHx: 14:32 Cholecystectomy; ed1 - Immunization history:: Adult Immunizations up to date. - Social history:: Smoking status: Patient/guardian denies using tobacco. - Ebola Screening: : Patient negative for fever greater than or equal to 101.5 degrees Fahrenheit, and additional compatible Ebola Virus Disease symptoms Patient denies exposure to infectious person Patient denies travel to an Ebola-affected area in the 21 days before illness onset No symptoms or risks identified at this time. - Family history:: not pertinent. - Hospitalizations: : The patient was recently seen at [facility]. ROS: 14:48 Constitutional: Negative for fever, chills, and weight loss, Eyes: Negative for injury, rn pain, redness, and discharge, Neck: Negative for injury, pain, and swelling, Cardiovascular: Negative for chest pain, palpitations, + edema Respiratory: + sob Abdomen/GI: Negative for abdominal pain, nausea, vomiting, diarrhea, and constipation, MS/Extremity: Negative for injury and deformity, Skin: Negative for injury, rash, and discoloration, Neuro: Negative for headache, numbness, tingling, and seizure. Exam: 14:48 Constitutional: overweight female, sitting upright with mild tachypnea Head/Face: rn Normocephalic, atraumatic. Eyes: Pupils equal round and reactive to light, extra-ocular motions intact. Lids and lashes normal. Conjunctiva and sclera are non-icteric and not injected. Cornea within normal limits. Periorbital areas with no swelling, redness, or edema. Cardiovascular: Regular rate and rhythm with a normal S1 and S2. No gallops, murmurs, or rubs. Normal PMI, no JVD. No pulse deficits. Respiratory: + mild tachypnea, + exp wheezing upper lobes, no retractions Abdomen/GI: Soft, non-tender, with normal bowel sounds. No distension or tympany. No guarding or rebound. No evidence of tenderness throughout. MS/ Extremity: Pulses equal, no cyanosis. Neurovascular intact. Full, normal range of motion. Equal circumference. 2+ pitting edema bilateral lower ext Neuro: Awake and alert, GCS 15, oriented to person, place, time, and situation. Cranial nerves II-XII grossly intact. Motor strength 5/5 in all extremities. Sensory grossly intact. Vital Signs: 14:32 BP 203 / 98; Pulse 71; Resp 14; Temp 98.5(O); Pulse Ox 95% on R/A; Pain 6/10; ed1 15:12 BP 171 / 70; Pulse 70; Resp 20; Pulse Ox 95% on R/A; Pain 6/10; ed1 17:06 BP 203 / 84; Pulse 65; Resp 24; Pulse Ox 94% on R/A; Pain 4/10; ch 17:25 BP 208 / 91; Pulse 70; Resp 22; ch 17:43 BP 193 / 80; Pulse 75; Resp 24; Pulse Ox 93% on R/A; ch 18:24 BP 177 / 85; Pulse 70; Resp 18; Pulse Ox 95% on R/A; Pain 2/10; ch 19:30 BP 200 / 85; Pulse 67; Resp 22; Pulse Ox 95% on R/A; bp MDM: 14:25 Patient medically screened. rn 15:49 Differential diagnosis: CHF exacerbation, Pneumothorax pulmonary edema. Data reviewed: rn vital signs, nurses notes, lab test result(s), EKG, radiologic studies, plain films, and as a result, I will admit patient. Counseling: I had a detailed discussion with the patient and/or guardian regarding: the historical points, exam findings, and any diagnostic results supporting the discharge/admit diagnosis, lab results, radiology results, the need for further work-up and treatment in the hospital. Response to treatment: the patient's symptoms have mildly improved after treatment, and as a result, I will admit patient. Admission orders: after a detailed discussion of the patient's condition and case, the admit orders are written by me. 12/25 14:35 Order name: Blood Culture Adult (2) rn 12/25 14:35 Order name: BMP; Complete Time: 15:31 rn 12/25 14:35 Order name: BNP; Complete Time: 15:31 rn 12/25 14:35 Order name: CBC with Diff; Complete Time: 15:31 rn 12/25 14:35 Order name: Magnesium; Complete Time: 15:31 rn 12/25 14:35 Order name: Troponin (emerg Dept Use Only); Complete Time: 15:31 rn 12/25 14:35 Order name: XRAY CXR (1 view); Complete Time: 15:37 rn 12/25 14:35 Order name: EKG; Complete Time: 14:35 rn 12/25 16:58 Order name: CONS Physician Consult [facility] 12/25 16:58 Order name: Physical Therapy Consult [facility] 12/25 17:08 Order name: Urine Dipstick--Ancillary (enter results) bd 12/25 17:16 Order name: Urine Dipstick-Ancillary [facility] 12/25 14:35 Order name: Cardiac monitoring; Complete Time: 15:06 rn 12/25 14:35 Order name: EKG - Nurse/Tech; Complete Time: 15:06 rn 12/25 14:35 Order name: IV Saline Lock; Complete Time: 15:06 rn 12/25 14:35 Order name: Labs collected and sent; Complete Time: 15:06 rn 12/25 14:35 Order name: O2 Per Protocol; Complete Time: 15:06 rn 12/25 14:35 Order name: O2 Sat Monitoring; Complete Time: 15:06 rn 12/25 16:58 Order name: Respiratory Therapy Consult [facility] 12/25 16:58 Order name: Renal [facility] Administered Medications: 16:16 Drug: Lasix 40 mg Route: IVP; Site: left antecubital; ch 18:49 Follow up: Response: No adverse reaction ch 17:38 Drug: amLODIPine 10 mg Route: PO; ch 18:45 Follow up: Response: No adverse reaction Disposition: 12/25/17 16:39 Hospitalization ordered by Bryan Simon for Observation. Preliminary diagnosis are Dyspnea, unspecified, Pulmonary edema, Anasarca. - Bed requested for Telemetry/MedSurg (observation). - Status is Observation. bp - Condition is Stable. - Problem is new. - Symptoms have improved. UTI on Admission? No Signatures: Dispatcher [employer] [facility] Yaritza Urbina Maris Dodson, RN RN Gaurav Chow MD MD rn Riggs, Erika, TRACTOR OPERATOR TRACTOR OPERATOR ed1 Edmundo Estrada RN RN bp Corrections: (The following items were deleted from the chart) 18:34 16:39 Hospitalization Ordered by Bryan Simon DO for Observation. Preliminary bd diagnosis is Dyspnea, unspecified; Pulmonary edema; Anasarca. Bed requested for Telemetry/MedSurg (observation). Status is Observation. Condition is Stable. Problem is new. Symptoms have improved. UTI on Admission? No. rn 19:59 18:34 12/25/2017 16:39 Hospitalization Ordered by Bryan Simon DO for Observation. bp Preliminary diagnosis is Dyspnea, unspecified; Pulmonary edema; Anasarca. Bed requested for Telemetry/MedSurg (observation). Status is Observation. Condition is Stable. Problem is new. Symptoms have improved. UTI on Admission? No. bd
--- NOTE | 2017-12-25 16:41 | ER ---
Nurse's Notes [facility] Name: Maura Harris Age: 77 yrs Sex: Female : 1940 Arrival Date: 12/25/2017 Time: 14:23 Bed 16 Private MD: Lalitha Allen Diagnosis: Dyspnea, unspecified;Pulmonary edema;Anasarca Presentation: 12/25 14:24 Presenting complaint: EMS states: she began complaining of increased shortness of ed1 breath and swelling all over. Transition of care: patient was received from another setting of care (long-term care facility), [facility]. Onset of symptoms was December 25, 2017. Risk Assessment: Do you want to hurt yourself or someone else? Patient reports no desire to harm self or others. Initial Sepsis Screen: Does the patient meet any 2 criteria? No. Patient's initial sepsis screen is negative. Does the patient have a suspected source of infection? No. Patient's initial sepsis screen is negative. Care prior to arrival: Medication(s) given: Albuterol Neb x 1, around 1000 IV initiated. 20 GA, in the left antecubital area. 14:24 Method Of Arrival: EMS: [facility] ed1 14:37 Acuity: ELICIA 3 iw Triage Assessment: 14:32 General: Appears in no apparent distress. comfortable, Behavior is calm, cooperative. ed1 Pain: Complains of pain in back, chest, right leg and left leg Pain does not radiate. Pain currently is 6 out of 10 on a pain scale. Quality of pain is described as aching, throbbing, Pain began 2-3 days ago. Is continuous. Respiratory: Reports shortness of breath at rest cough that is productive, hacking, persistent Airway is patent Trachea midline Respiratory effort is even, unlabored, Respiratory pattern is regular, symmetrical, Breath sounds are clear bilaterally. Onset: The symptoms/episode began/occurred yesterday, the patient has moderate shortness of breath. Historical: - Allergies: 14:32 BACLOFEN; ed1 14:32 cefepime; ed1 14:32 prochlorperazine Edisylate; ed1 14:32 Vancomycin; ed1 14:32 Ondansetron HCl; ed1 14:32 Compazine; ed1 14:32 Macrobid; ed1 - Home Meds: 14:32 Multiple Vitamins with Iron oral 1 tab oral daily [Active]; amlodipine 2.5 mg tab 1 tab ed1 once daily [Active]; doxazosin 5mg Oral tab 1 tab once daily [Active]; furosemide 40 mg Oral tab 1 tab once daily [Active]; labetalol 200 mg Oral tab 1 tab 2 times per day [Active]; levothyroxine 100 mcg tab [Active]; oxybutynin chloride 5 mg Oral tr24 1 tab once daily [Active]; sertraline 100 mg Oral tab 1 tab once daily [Active]; sodium polystyrene sulfonate Oral powd 20 mL 2 times per day [Active]; - PMHx: 14:32 Hypothyroidism; Hypertension; COPD; GERD; lymphedema; retained cholelithiasis; ed1 - PSHx: 14:32 Cholecystectomy; ed1 - Immunization history:: Adult Immunizations up to date. - Social history:: Smoking status: Patient/guardian denies using tobacco. - Ebola Screening: : Patient negative for fever greater than or equal to 101.5 degrees Fahrenheit, and additional compatible Ebola Virus Disease symptoms Patient denies exposure to infectious person Patient denies travel to an Ebola-affected area in the 21 days before illness onset No symptoms or risks identified at this time. - Family history:: not pertinent. - Hospitalizations: : The patient was recently seen at [facility]. Screenin:15 Abuse screen: Denies threats or abuse. Denies injuries from another. Nutritional ed1 screening: No deficits noted. Tuberculosis screening: No symptoms or risk factors identified. Fall Risk No fall in past 12 months (0 pts). No secondary diagnosis (0 pts). IV access (20 points). Ambulatory Aid- None/Bed Rest/Nurse Assist (0 pts). Gait- Weak (10 pts.). Mental Status- Oriented to own ability (0 pts). Total Mcallister Fall Scale indicates Low Risk Score (25-44 pts). Fall prevention measures have been instituted. Side Rails Up X 2 Frequent Obs/Assesments occuring Family Present and informed to notify staff if they need to leave bedside As available Patient and Family Educated on Fall Prevention Program and strategies. Assessment: 15:12 General: Appears uncomfortable, Behavior is calm, cooperative. Pain: Complains of pain ed1 in left leg and right leg and chest and back Pain does not radiate. Pain currently is 6 out of 10 on a pain scale. Quality of pain is described as aching, throbbing, Pain began 1 day ago. Neuro: Level of Consciousness is awake, alert, obeys commands, Oriented to person, place, time, situation. Cardiovascular: Reports chest pain, shortness of breath, Heart tones S1 S2 present Edema is 3+ to left midcalf, left ankle, left foot, right midcalf, right ankle and right foot pitting to left ankle and right ankle Rhythm is sinus rhythm. Respiratory: Reports shortness of breath at rest cough that is Airway is patent Trachea midline Respiratory effort is even, unlabored, Respiratory pattern is regular, symmetrical, Breath sounds are clear bilaterally. GI: No signs and/or symptoms were reported involving the gastrointestinal system. : No signs and/or symptoms were reported regarding the genitourinary system. EENT: No signs and/or symptoms were reported regarding the EENT system. Derm: Skin is intact, is thin, Skin is dry, Skin is normal, Skin temperature is warm. Musculoskeletal: Circulation, motion, and sensation intact. 15:30 Reassessment: I agree with above assessment by Liz Simms LVN. iw 17:06 Reassessment: Patient appears in no apparent distress at this time. Patient and/or ch family updated on plan of care and expected duration. Pain level reassessed. Patient is alert, oriented x 3, equal unlabored respirations, skin warm/dry/pink. General: Appears in no apparent distress. comfortable, Behavior is calm, cooperative, appropriate for age. Neuro: No deficits noted. Respiratory: Reports shortness of breath cough that is Airway is patent Trachea midline Respiratory effort is even, unlabored, Respiratory pattern is regular, Breath sounds are diminished bilaterally. : No signs and/or symptoms were reported regarding the genitourinary system. Derm: Skin is fragile, is thin, Skin is dry, Skin is pink, warm \T\ dry. Skin temperature is warm. Musculoskeletal: Circulation, motion, and sensation intact. 17:43 Reassessment: Patient appears in no apparent distress at this time. Patient and/or ch family updated on plan of care and expected duration. Pain level reassessed. Patient is alert, oriented x 3, equal unlabored respirations, skin warm/dry/pink. erp notified of pt bp. medicated per orders. 18:24 Reassessment: Patient appears in no apparent distress at this time. No changes from previously documented assessment. Patient and/or family updated on plan of care and expected duration. Pain level reassessed. pt states she is feeling better. 18:44 Reassessment: Patient appears in no apparent distress at this time. No changes from previously documented assessment. Patient and/or family updated on plan of care and expected duration. Pain level reassessed. 19:00 Reassessment: RECD REPORT FROM MARIS BUTCHER. 77YO WF P/W SOB/EDEMA FROM [facility]. bp ADMIT IN PROCESS FOR FLUID OVERLOAD, ROOM 405. 19:58 Reassessment: PT ADMITTED TO 405, REPORT TO DAVID BUTCHER. PT REMAINS AO4, +EXERTIONAL bp DYSPNEA WITHOUT DESAT. Vital Signs: 14:32 BP 203 / 98; Pulse 71; Resp 14; Temp 98.5(O); Pulse Ox 95% on R/A; Pain 6/10; ed1 15:12 BP 171 / 70; Pulse 70; Resp 20; Pulse Ox 95% on R/A; Pain 6/10; ed1 17:06 BP 203 / 84; Pulse 65; Resp 24; Pulse Ox 94% on R/A; Pain 4/10; ch 17:25 BP 208 / 91; Pulse 70; Resp 22; ch 17:43 BP 193 / 80; Pulse 75; Resp 24; Pulse Ox 93% on R/A; ch 18:24 BP 177 / 85; Pulse 70; Resp 18; Pulse Ox 95% on R/A; Pain 2/10; ch 19:30 BP 200 / 85; Pulse 67; Resp 22; Pulse Ox 95% on R/A; bp ED Course: 14:23 Patient arrived in ED. ed1 14:24 Lalitha Allen is Private Physician. ed1 14:25 Gaurav Chow MD is Attending Physician. rn 14:35 Arm band placed on left wrist. ed1 14:38 Triage completed. iw 14:55 EKG done, by interventional tech. reviewed by Gaurav Chow MD. sm3 15:05 Liz Simms LVN is Primary Nurse. ed1 15:15 Patient has correct armband on for positive identification. Placed in gown. Bed in low ed1 position. Call light in reach. Side rails up X2. Adult w/ patient. installer technician on. Pulse ox on. NIBP on. 15:15 Maintain EMS IV. Dressing intact. Good blood return noted. Site clean \T\ dry. Gauge \T\ ed 1 site: 20 g L ac. Flushed right saline lock with 5 ml normal saline. 15:18 X-ray completed. Portable x-ray completed in exam room. Patient tolerated procedure jb2 well. 15:19 XRAY CXR (1 view) In Process Unspecified. EDMS 15:49 Report given to Maris Fuller RN. ed1 15:50 Primary Nurse role handed off by Liz Simms LVN ed1 16:15 Maris Dodson, HADLEY is Primary Nurse. ch 16:38 Bryan Simon DO is Hospitalizing Provider. rn 19:07 Primary Nurse role handed off by Maris Dodson RN bp 19:07 Edmundo Estrada, HADLEY is Primary Nurse. bp 19:58 No provider procedures requiring assistance completed. Patient admitted, IV remains in bp place. Administered Medications: 16:16 Drug: Lasix 40 mg Route: IVP; Site: left antecubital; ch 18:49 Follow up: Response: No adverse reaction ch 17:38 Drug: amLODIPine 10 mg Route: PO; ch 18:45 Follow up: Response: No adverse reaction ch Intake: 17:08 PO: 0ml; Total: 0ml. ch 18:24 PO: 500ml (Water); Total: 500ml. ch 17:08 pt voids into bsc three times. urine collected and measured now. bsc left at bedside ch Output: 17:08 Urine: 550ml (Voided); Total: 550ml. ch 17:43 Urine: 350ml (Voided); Total: 900ml. ch 18:24 Urine: 400ml (Voided); Total: 1300ml. ch 17:08 pt voids into bsc three times. urine collected and measured now. bsc left at bedside ch Outcome: 16:39 Decision to Hospitalize by Provider. rn 19:57 Admitted to Tele accompanied by tech, family with patient, via wheelchair, room 405, bp with chart, Report called to DAVID BUTCHER 19:57 Condition: stable 19:57 Instructed on the need for admit. 19:59 Patient left the ED. bp Signatures: Dispatcher [employer] EDMS Maris Dodson, RN RN Jd Ruffin jb2 Yamel Escobedo, RN RN Gaurav Chow MD MD rn Riggs, Erika, PHYLICIA MAYAN ed1 Edmundo Estrada, HADLEY RN Cookie Henry sm3
[2017-12-25] MEDS ORDERED: IPRATROPIUM BROM 0.5MG/2.5ML NEB PRN (16:52)
[2017-12-25] MEDS ORDERED: HYDRALAZINE HCL 20 MG/ML VIAL IV PRN (16:52)
[2017-12-25] MEDS ORDERED: ACETAMINOPHEN 500 MG TAB PO PRN (16:52)
[2017-12-25] MEDS ORDERED: ALBUTEROL 2.5 MG/3 ML NEB SOL NEB PRN (16:52)
[2017-12-25] MEDS ORDERED: ONDANSETRON 4 MG/2 ML VIAL IV PRN (16:52)
[2017-12-25] MEDS ORDERED: FUROSEMIDE 40 MG/4 ML VIAL IV SCH (17:00)
--- NOTE | 2017-12-25 17:05 | P.HP ---
Certification for Inpatient Patient admitted to: Observation With expected LOS: <2 Midnights Patient will require the following post-hospital care: [facility] Practitioner: I am a practitioner with admitting privileges, knowledge of patient current condition, hospital course, and medical plan of care. Services: Services provided to patient in accordance with Admission requirements found in Title 42 Section 412.3 of the Code of Federal Regulations Patient History Date of Service: 12/25/17 Primary Care Provider: Dr. Brandon Reason for admission: Edema to the lower ext History of Present Illness: 77-year-old female presented emergency room with increasing edema to the lower extremity. Patient noted increasing edema to the lower extremity. Patient with history of right atrophic kidney, chronic kidney disease, diastolic CHF, hypertension, hypothyroidism and COPD. She reports patient has been treated in the past for CHF. She reports that her doctor at the long term recently stopped her Lasix. During that time she noted increasing edema to the lower extremity. She also had some mild shortness of breath. Patient came to the ER for further evaluation. In the ER the patient was evaluated. Blood pressure slightly elevated. Patient had normal saturations on room air. In the ER white count 4.6, hemoglobin 9.4. Sodium 134, potassium 4.0. BUN of 10, creatinine 1.19 with a GFR of 44. Glucose 140. BNP elevated at 505. Troponin less than 0.03. Chest x- rayed showed mild volume overload. Due to the findings the patient was admitted for observation. When I saw the patient ER, she appeared comfortable. Some swelling to the lower extremity noted. Patient takes multiple medications. Did not appear in any distress. Allergies baclofen Allergy (Intermediate, Verified 11/26/17 20:35) Shortness of breath prochlorperazine [From Compazine] Allergy (Intermediate, Verified 11/26/17 20:35 ) Anaphylaxis cefepime Allergy (Mild, Verified 11/26/17 20:35) Rash ondansetron HCl [From Zofran] Allergy (Mild, Verified 11/26/17 20:35) Rash prochlorperazine edisylate [From Compazine] Allergy (Mild, Verified 11/26/17 20: 35) Rash prochlorperazine maleate [From Compazine] Allergy (Mild, Verified 11/26/17 20:35 ) Rash vancomycin Allergy (Mild, Verified 11/26/17 20:35) Rash iodine Allergy (Verified 11/26/17 20:35) Nausea/Vomiting nitrofurantoin [From Macrobid] Allergy (Verified 11/26/17 20:35) Unknown Home medications list reviewed: Yes Home Medications: Ipratropium/Albuterol Sulfate [Combivent Respimat Inhal Ramona] 1 puff IH Q6HP PRN 11/10/17 Ipratropium/Albuterol Sulfate [Iprat-Albut 0.5-3(2.5) mg/3 ml] 1 vial NEB Q8HP PRN 11/10/17 Alprazolam [Xanax*] 0.25 mg PO TID PRN #30 tab 11/17/17 Arformoterol Tartrate [Brovana] 15 mcg NEB BIDRESP #5 vial.neb 11/17/17 Buspirone HCl 30 mg PO DAILY #30 tablet 11/17/17 Hydralazine HCl [Apresoline] 100 mg PO TID #180 tablet 11/17/17 Labetalol HCl [Trandate] 400 mg PO BID #120 tablet 11/17/17 Levothyroxine [Synthroid*] 112 mcg PO PSEVM1AC #30 tab 11/17/17 Lubiprostone [Amitiza*] 24 mcg PO DAILY #30 cap 11/17/17 Oxybutynin Chloride 5 mg PO TID #60 tablet 11/17/17 Prednisone [Prednisone*] 20 mg PO DAILY #30 tab 11/17/17 Sertraline [Zoloft*] 100 mg PO DAILY #30 tab 11/17/17 Sucralfate [Carafate*] 1 gm PO QID #120 tab 11/17/17 Budesonide/Formoterol Fumarate [Symbicort 80-4.5 Mcg Inhaler] 1 puff IH BID Dexlansoprazole [Dexilant] 60 mg PO DAILY 11/26/17 Ampicillin Trihydrate [Ampicillin Trihydrate*] 500 mg PO Q6HR #28 cap 11/29/17 - Past Medical/Surgical History Diabetic: No -: COPD -: HTN -: GERD -: Hypothyroidism -: CHF, diastolic dysfunction -: Chronic kidney disease -: Right atrophic kidney -: Lymphedema -: cholecystectomy -: appendectomy -: hysterectomy -: tonsillectomy -: L hip sx -: x2 abdominal hernia repairs -: right arm sx -: right ankle sx Psychosocial/ Personal History: The patient is . She is currently at a skilled facility - Family History Family History: Reviewed- Non-Contributory - Social History Smoking Status: Never smoker Alcohol use: No CD- Drugs: No Caffeine use: Yes Place of Residence: Residential Review of Systems General: Weakness, As per HPI Eyes: Unremarkable ENT: Unremarkable Respiratory: Shortness of Breath, As per HPI Cardiovascular: Unremarkable Gastrointestinal: Unremarkable Genitourinary: Unremarkable Musculoskeletal: Pedal edema, As per HPI Integumentary: As per HPI Neurological: Unremarkable Lymphatics: Unremarkable Physical Examination - Physical Exam General: Alert, In no apparent distress, Oriented x3, Cooperative HEENT: Atraumatic, Normocephalic, Mucous membr. moist/pink Neck: Supple, No Thyromegaly Respiratory: Clear to auscultation bilaterally (Anteriorly), Crackles/rales ( Mild crackles to the bases) Cardiovascular: Normal pulses, Regular rate/rhythm Gastrointestinal: Normal bowel sounds, Soft and benign, Non-distended, No tenderness, No masses, No rebound, No guarding Musculoskeletal: No erythema, No tenderness, No warmth Integumentary: No tenderness/swelling, No erythema, No warmth, No cyanosis Neurological: Normal speech, Normal strength at 5/5 x4 extr, Normal tone, Normal affect Lymphatics: No axilla or inguinal lymphadenopathy - Studies Laboratory Data (last 24 hrs) 12/25/17 14:47: WBC 4.6, Hgb 9.4 L, Hct 28.0 L, Plt Count 145 L 12/25/17 14:47: B-Natriuretic Peptide 505 H 12/25/17 14:47: Sodium 134 L, Potassium 4.0, BUN 10, Creatinine 1.19 H, Glucose 140 H, Magnesium 1.6 L Assessment and Plan - Problems (Diagnosis) (1) Edema Current Visit: Yes Status: Acute Plan: Braille Translator to the lower extremity likely related to CHF exacerbation. Will start IV Lasix twice daily. Will continue with a 1500 cc per day fluid restriction. Will reassess tomorrow. Recheck chest x-ray. Will discuss with nephrology. Anticipate possible discharge tomorrow. Patient will likely need to go back on her Lasix at discharge. Qualifiers: Edema type: unspecified Qualified Code(s): R60.9 - Edema, unspecified (2) CHF (congestive heart failure) Current Visit: Yes Status: Acute Plan: Acute on chronic diastolic dysfunction noted. Will continue IV Lasix. Will recheck chest x-ray. Will reassess tomorrow. Patient will need to be on 1500 cc per day fluid restriction and low-salt diet. Qualifiers: Heart failure type: diastolic Heart failure chronicity: acute on chronic Qualified Code(s): I50.33 - Acute on chronic diastolic (congestive) heart failure (3) Hypertension Current Visit: Yes Status: Chronic Plan: Will verify and restart home medication. Qualifiers: Hypertension type: essential hypertension Qualified Code(s): I10 - Essential (primary) hypertension (4) COPD (chronic obstructive pulmonary disease) Current Visit: Yes Status: Chronic Plan: Will continue with COPD medication Qualifiers: COPD type: chronic bronchitis Chronic bronchitis type: unspecified Qualified Code(s): J42 - Unspecified chronic bronchitis (5) Anemia Current Visit: Yes Status: Chronic Plan: Patient likely with anemia of chronic disease. Will monitor closely. Qualifiers: Anemia type: due to chronic kidney disease Chronic kidney disease stage: stage 3 (moderate) Qualified Code(s): N18.3 - Chronic kidney disease, stage 3 (moderate); D63.1 - Anemia in chronic kidney disease (6) Hypothyroidism Current Visit: Yes Status: Chronic Plan: Will continue his medication. Will recheck tsh Qualifiers: Hypothyroidism type: unspecified Qualified Code(s): E03.9 - Hypothyroidism , unspecified (7) Atrophic kidney Current Visit: Yes Status: Chronic Plan: Patient with history of right atrophic kidney and chronic kidney disease. Will monitor renal function closely while on diuretic therapy. Nephrology consulted (8) CKD (chronic kidney disease) Onset Date: 11/12/17 Current Visit: No Status: Chronic Plan: Stable. Nephrology consulted. Will start Diuretic therapy. Patient with right atrophic therapy. Qualifiers: Chronic kidney disease stage: stage 3 (moderate) Qualified Code(s): N18.3 - Chronic kidney disease, stage 3 (moderate) Discharge Plan: Residential (Patient currently at SNF) Plan to discharge in: 24 Hours - Advance Directives Does patient have a Living Will: No Does patient have a Durable POA for Healthcare: No - Code Status/Comfort Care Code Status Assessed: Yes Time Spent Managing Pts Care (In Minutes): 55
[2017-12-25 17:16] LABS: Urine Blood NEGATIVE (NEG); Urine Glucose NEGATIVE (NEG); Urine Protein NEGATIVE (NEG)
[2017-12-25] MEDS ORDERED: AMLODIPINE 5 MG TAB ONE (17:40)
--- NOTE | 2017-12-25 18:34 | EKG ---
Test Date: 2017-12-25 Test Time: 14:55:39 Retail Salesworker: VIKY MEASUREMENT RESULTS: Intervals: Rate: 71 TN: 182 QRSD: 86 QT: 388 QTc: 421 [place]: P: 34 TN: 182 QRS: -5 T: 38 INTERPRETIVE STATEMENTS: Normal sinus rhythm Possible Anterior infarct, age undetermined Abnormal ECG Compared to ECG 11/26/2017 09:25:06 Myocardial infarct finding now present Electronically Signed On 12-25-17 18:33:19 CDT by Be Coy
[2017-12-25] MEDS: ARFORMOTEROL TARTRATE 15 MCG/2 ML VIAL.NEB NEB SCH (20:28)
[2017-12-25] MEDS ORDERED: LABETALOL HCL 100 MG TAB PO SCH (21:00)
[2017-12-25] MEDS ORDERED: SERTRALINE HCL 100 MG TAB PO SCH (21:00)
[2017-12-25] MEDS ORDERED: DOXAZOSIN 4 MG TAB PO SCH (21:00)
[2017-12-25] MEDS ORDERED: DOXAZOSIN 2 MG TAB ONE (22:15)
[2017-12-25] MEDS: ENOXAPARIN 30 MG/0.3 ML SQ SCH (22:16)
[2017-12-25 22:44] VITALS: BMI 37.8
--- NOTE | 2017-12-25 23:01 | P.CNS ---
Date of Consult: 12/25/17 Reason for Consult: MAGAN/ Hyponatremia Requesting Physician: Bryan Simon Primary Care Provider: Dr. Brandon Chief Complaint: Edema to the lower ext History of Present Illness: 77-year-old female presented emergency room with increasing edema to the lower extremity. Patient noted increasing edema to the lower extremity. Patient with history of right atrophic kidney, chronic kidney disease, diastolic CHF, hypertension, hypothyroidism and COPD. She reports patient has been treated in the past for CHF. She reports that her doctor [facility] the [facility] recently stopped her Lasix. During that time she noted increasing edema to the lower extremity. She also had some mild shortness of breath. Patient came to the ER for further evaluation. 14:47 This 77 yrs old Female presents to ER via EMS with complaints of Shortness Of rn Breath. 14:48 The patient has shortness of breath at rest, with light activity. Onset: The rn symptoms/episode began/occurred 1 week(s) ago. Duration: The symptoms are intermittent. The patient's shortness of breath is aggravated by exertion, talking. Severity of symptoms: At their worst the symptoms were moderate in the emergency department the symptoms are unchanged. The patient has experienced similar episodes in the past. Reports swelling all over, + cough, +sob, slowly worsening, has been off her lasix for some time since last admission because of renal failure, states swelling is worse than normal. Allergies baclofen Allergy (Intermediate, Verified 11/26/17 20:35) Shortness of breath prochlorperazine [From Compazine] Allergy (Intermediate, Verified 11/26/17 20:35 ) Anaphylaxis cefepime Allergy (Mild, Verified 11/26/17 20:35) Rash ondansetron HCl [From Zofran] Allergy (Mild, Verified 11/26/17 20:35) Rash prochlorperazine edisylate [From Compazine] Allergy (Mild, Verified 11/26/17 20: 35) Rash prochlorperazine maleate [From Compazine] Allergy (Mild, Verified 11/26/17 20:35 ) Rash vancomycin Allergy (Mild, Verified 11/26/17 20:35) Rash iodine Allergy (Verified 11/26/17 20:35) Nausea/Vomiting nitrofurantoin [From Macrobid] Allergy (Verified 11/26/17 20:35) Unknown Home medications list reviewed: Yes Home Medications: Ipratropium/Albuterol Sulfate [Combivent Respimat Inhal [place]] 1 puff IH Q6HP PRN 11/10/17 Ipratropium/Albuterol Sulfate [Iprat-Albut 0.5-3(2.5) mg/3 ml] 1 vial NEB Q8HP PRN 11/10/17 Alprazolam [Xanax*] 0.25 mg PO TID PRN #30 tab 11/17/17 Arformoterol Tartrate [Brovana] 15 mcg NEB BIDRESP #5 vial.neb 11/17/17 Buspirone HCl 30 mg PO DAILY #30 tablet 11/17/17 Hydralazine HCl [Apresoline] 100 mg PO TID #180 tablet 11/17/17 Labetalol HCl [Trandate] 400 mg PO BID #120 tablet 11/17/17 Levothyroxine [Synthroid*] 112 mcg PO [id number] #30 tab 11/17/17 Lubiprostone [Amitiza*] 24 mcg PO DAILY #30 cap 11/17/17 Oxybutynin Chloride 5 mg PO TID #60 tablet 11/17/17 Prednisone [Prednisone*] 20 mg PO DAILY #30 tab 11/17/17 Sertraline [Zoloft*] 100 mg PO DAILY #30 tab 11/17/17 Sucralfate [Carafate*] 1 gm PO QID #120 tab 11/17/17 Budesonide/Formoterol Fumarate [Symbicort 80-4.5 Mcg Inhaler] 1 puff IH BID Dexlansoprazole [Dexilant] 60 mg PO DAILY 11/26/17 Ampicillin Trihydrate [Ampicillin Trihydrate*] 500 mg PO Q6HR #28 cap 11/29/17 - Past Medical/Surgical History Diabetic: No -: COPD -: HTN -: GERD -: Hypothyroidism -: CHF, diastolic dysfunction -: Chronic kidney disease -: Right atrophic kidney -: Lymphedema -: cholecystectomy -: appendectomy -: hysterectomy -: tonsillectomy -: L hip sx -: x2 abdominal hernia repairs -: right arm sx -: right ankle sx Psychosocial/ Personal History: The patient is . She is currently at a skilled facility - Social History Smoking Status: Never smoker Alcohol use: No CD- Drugs: No Caffeine use: Yes Place of Residence: [facility] Review of Systems 10-point ROS is otherwise unremarkable General: Weakness, Malaise Respiratory: Cough, SOB with Excertion Cardiovascular: Edema Neurological: Weakness Physical Examination Temp Pulse Resp BP Pulse Ox 98.4 F 65 21 H 196/80 H 95 12/25/17 20:00 12/25/17 22:18 12/25/17 20:00 12/25/17 22:18 12/25/17 20:00 General: Oriented x3, Cooperative, Mild distress HEENT: Atraumatic Neck: Supple Respiratory: Diminished Cardiovascular: Regular rate/rhythm, No rubs, Edema Gastrointestinal: Soft and benign, Non-distended Musculoskeletal: No clubbing, No contractures Integumentary: No rashes, No cyanosis Neurological: Normal speech Laboratory Data (last 24 hrs) 12/25/17 14:47: WBC 4.6, Hgb 9.4 L, Hct 28.0 L, Plt Count 145 L 12/25/17 14:47: B-Natriuretic Peptide 505 H 12/25/17 14:47: Sodium 134 L, Potassium 4.0, BUN 10, Creatinine 1.19 H, Glucose 140 H, Magnesium 1.6 L Imagings Data: EXAM DESCRIPTION: RAD - Chest Single View - 12/25/2017 3:19 pm CLINICAL HISTORY: Shortness of breath COMPARISON: November 26 TECHNIQUE: AP portable chest image was obtained 1508 hours . FINDINGS: No peripheral mass or consolidation. Vascular engorgement and interstitial markings are present and progressive or new from prior imaging. Heart size has increased. Trachea is midline. No measurable pleural effusion and no pneumothorax. No gross bony abnormality seen. No acute aortic findings suspected. IMPRESSION: Mild CHF/volume overload pattern. Conclusions/Impression: A/ MAGAN/ CKD III. Right kidney atrophy. Diastolic CHF, A/C. Lymphedema of lower extremities. HTN with CKD. Hyponatremia. Anemia in chronic illness. Thrombocytopenia. Hypomagnesemia. P/ Continue current POC and Medications. Start furosemide. Start vitamin d. Transfuse as needed. No NSAIDs. AM labs. Daily weight. Thank you kindly for the consultation.
[2017-12-26 04:16] LABS: Absolute Monocytes 0.6 K/uL (0.1-1.3); Absolute Neutrophil 4.3 K/uL (1.8-8.0); Basophils % 0.6 % (0-1.3); Eosinophils % 0.7 % (0-4.4); Hematocrit 29.5 % (36.0-45.0); Lymphocytes % 16.5 % (15.3-44.8); MCV 90.7 fL (80-100); MPV 8.5 fL (7.6-11.3); Monocytes % 10.3 % (3.3-12.3); RBC Red Blood Cell Count 3.25 M/uL (3.86-4.86)
[2017-12-26 04:55] LABS: Urine Appearance CLEAR; Urine Bilirubin NEGATIVE (NEG); Urine Blood NEGATIVE (NEG); Urine Color YELLOW; Urine Glucose NEGATIVE (NEG); Urine Protein NEGATIVE (NEG); Urine Urobilinogen 0.2 mg/dL (0.2-1.0); Urine pH 7.5 (5.0-7.0)
[2017-12-26 05:01] LABS: Potassium 3.4 mEq/L (3.6-5.0)
[2017-12-26 05:04] LABS: Uric Acid 5.9 mg/dL (2.6-8.0)
[2017-12-26 05:27] LABS: Thyroid Stimulating Hormone 2.57 uIU/mL (0.34-5.60)
[2017-12-26 05:34] LABS: Magnesium 1.4 mg/dL (1.8-2.5)
[2017-12-26 05:41] LABS: Urine Microscopic Reflex NO UMIC
[2017-12-26] MEDS ORDERED: LEVOTHYROXINE SOD 0.1 MG TAB PO SCH (06:00)
[2017-12-26] MEDS ORDERED: ALPRAZOLAM 0.25 MG TABLET PO PRN (06:51)
[2017-12-26] MEDS: ARFORMOTEROL TARTRATE 15 MCG/2 ML VIAL.NEB NEB SCH (07:18)
[2017-12-26] MEDS ORDERED: PANTOPRAZOLE 40MG TABLET PO SCH (07:30)
[2017-12-26] MEDS ORDERED: Magnesium Sulfate 2gm IVPB 2 G/50 ML BAG IV ONE (07:57)
[2017-12-26] MEDS ORDERED: FUROSEMIDE 40 MG TABLET PO SCH (09:00)
[2017-12-26] MEDS ORDERED: VITAMIN D 5,000 UNIT CAP PO SCH (09:00)
[2017-12-26] MEDS ORDERED: LABETALOL HCL 400 MG PO SCH (09:00)
[2017-12-26] MEDS ORDERED: BUSPIRONE HCL 15 MG TABLET PO SCH (09:00)
[2017-12-26] MEDS ORDERED: OXYBUTYNIN CHLORIDE 5 MG TAB PO SCH (09:00)
[2017-12-26] MEDS ORDERED: LUBIPROSTONE 24 MCG CAP PO SCH (09:00)
[2017-12-26] MEDS ORDERED: FUROSEMIDE 40 MG/4 ML VIAL IV SCH (09:00)
[2017-12-26] MEDS ORDERED: POTASSIUM CL SA 10 MEQ TAB PO ONE (09:00)
[2017-12-26] MEDS ORDERED: LABETALOL HCL 100 MG TAB PO SCH (09:00)
[2017-12-26] MEDS ORDERED: GUAIFENESIN/CODEINE 5ML UCUP PO SCH (09:00)
[2017-12-26] MEDS: ENOXAPARIN 30 MG/0.3 ML SQ SCH (09:03)
[2017-12-26] MEDS: SUCRALFATE 1 GM TABLET PO SCH ×2 (09:03→13:03)
[2017-12-26] MEDS: HYDRALAZINE HCL 25 MG TABLET PO SCH ×2 (09:03→13:02)
--- NOTE | 2017-12-26 09:33 | RAD REPORT ---
EXAM DESCRIPTION: RAD - Chest Pa And Lat (2 Views) - 12/26/2017 6:44 am CLINICAL HISTORY: CHF, followup assessment. COMPARISON: 12/25/2017 FINDINGS: The lungs are clear. Small pleural effusions noted. The heart is mildly enlarged in size. Right humeral prosthesis noted. Cervical hardware plate is present. Vertebroplasty cement is noted in the lower thoracic vertebral body. IMPRESSION: Mild improvement in lung aeration since comparative study.
--- NOTE | 2017-12-26 10:37 | P.DS ---
Admission Date: 12/25/17 Discharge Date: 12/26/17 Primary Care Provider: Dr. Brandon Disposition: TRANSFER TO SNF - MEDICAL Discharge Condition: GOOD Reason for Admission: Edema to the lower ext Consultations: Nephrology-Dr. Sargent - Problems (1) Edema Onset Date: 12/26/17 Current Visit: Yes Status: Acute Qualifiers: Edema type: unspecified Qualified Code(s): R60.9 - Edema, unspecified (2) CHF (congestive heart failure) Onset Date: 12/26/17 Current Visit: Yes Status: Acute Qualifiers: Heart failure type: diastolic Heart failure chronicity: acute on chronic Qualified Code(s): I50.33 - Acute on chronic diastolic (congestive) heart failure (3) Hypertension Onset Date: 12/26/17 Current Visit: Yes Status: Chronic Qualifiers: Hypertension type: essential hypertension Qualified Code(s): I10 - Essential (primary) hypertension (4) COPD (chronic obstructive pulmonary disease) Onset Date: 12/26/17 Current Visit: Yes Status: Chronic Qualifiers: COPD type: chronic bronchitis Chronic bronchitis type: unspecified Qualified Code(s): J42 - Unspecified chronic bronchitis (5) Anemia Onset Date: 12/26/17 Current Visit: Yes Status: Chronic Qualifiers: Anemia type: due to chronic kidney disease Chronic kidney disease stage: stage 3 (moderate) Qualified Code(s): N18.3 - Chronic kidney disease, stage 3 (moderate); D63.1 - Anemia in chronic kidney disease (6) Hypothyroidism Onset Date: 12/26/17 Current Visit: Yes Status: Chronic Qualifiers: Hypothyroidism type: unspecified Qualified Code(s): E03.9 - Hypothyroidism , unspecified (7) Atrophic kidney Onset Date: 12/26/17 Current Visit: Yes Status: Chronic (8) CKD (chronic kidney disease) Onset Date: 11/12/17 Current Visit: No Status: Chronic Qualifiers: Chronic kidney disease stage: stage 3 (moderate) Qualified Code(s): N18.3 - Chronic kidney disease, stage 3 (moderate) (9) GERD (gastroesophageal reflux disease) Current Visit: Yes Status: Chronic Qualifiers: Esophagitis presence: esophagitis presence not specified Qualified Code(s) : K21.9 - Gastro-esophageal reflux disease without esophagitis (10) Urinary incontinence Current Visit: Yes Status: Chronic Qualifiers: Urinary Incontinence type: other incontinence Qualified Code(s): N39.498 - Other specified urinary incontinence (11) Depression with anxiety Current Visit: Yes Status: Chronic Brief History of Present Illness: 77-year-old female presented emergency room with increasing edema to the lower extremity. Patient noted increasing edema to the lower extremity. Patient with history of right atrophic kidney, chronic kidney disease, diastolic CHF, hypertension, hypothyroidism and COPD. She reports patient has been treated in the past for CHF. She reports that her doctor at the assisted recently stopped her Lasix. During that time she noted increasing edema to the lower extremity. She also had some mild shortness of breath. Patient came to the ER for further evaluation. In the ER the patient was evaluated. Blood pressure slightly elevated. Patient had normal saturations on room air. In the ER white count 4.6, hemoglobin 9.4. Sodium 134, potassium 4.0. BUN of 10, creatinine 1.19 with a GFR of 44. Glucose 140. BNP elevated at 505. Troponin less than 0.03. Chest x- rayed showed mild volume overload. Due to the findings the patient was admitted for observation. When I saw the patient ER, she appeared comfortable. Some swelling to the lower extremity noted. Patient takes multiple medications. Did not appear in any distress. Hospital Course: Patient presented with increasing edema and mild shortness of breath secondary to acute on chronic CHF, diastolic dysfunction/chronic renal disease. Apparently patient had been on Lasix therapy but this was recently discontinued. During his stay patient received IV Lasix with significant improvement. Chest x-ray showed improvement of pulmonary edema. At discharge patient did not require any oxygen. Edema improved. Patient at discharge will need to continue with a 1500 cc per day fluid restriction and low-salt diet. At discharge patient will continue with Lasix 40 mg 1 pill twice daily. Recommendation is to recheck BMP in 1 week to monitor progress. Lasix may need to be adjusted over time. Recommendation is for the patient to follow up with nephrology in 1 week to monitor her care and adjustment in medication. Patient has hypertension. This remained stable during her stay. Patient will continue with medication including labetalol 400 mg 1 pill twice daily. Recommendation is to maintain blood pressures less 150/80. Further adjustment can be done by her PCP. Patient has hypothyroidism. Patient will continue with Levoxyl 112 mcg daily. Patient has COPD. Patient will continue with Brovana 1 unit dose twice daily, Atrovent 1 unit dose 3 times a day as needed for shortness of breath. Recommendation is for the patient to follow up with pulmonology as an outpatient to further monitor. Symbicort has been discontinued since the patient is on Brovana. Patient has depression. Patient will continue with her medication Zoloft 100 mg 1 pill daily, buspirone 30 mg daily and Xanax 0.25 mg 3 times a day as needed for anxiety. Patient with history of urinary incontinence. Patient will continue with Oxybutynin 5 mg 1 pill 3 times a day Patient has GERD. Patient had mild nausea. This is likely related to her GERD and fluid overload. This resolved. Patient will continue with Dexilant once daily and Sulcrafate 4 times a day. Patient with chronic constipation. Patient continue with Amitza as directed. Vital Signs/Physical Exam: Temp Pulse Resp BP Pulse Ox 99.0 F 105 H 18 163/95 H 98 12/26/17 08:00 12/26/17 09:13 12/26/17 08:00 12/26/17 09:13 12/26/17 08:00 General: Alert, In no apparent distress, Oriented x3, Cooperative HEENT: Atraumatic Neck: Supple Respiratory: Clear to auscultation bilaterally, Normal air movement Cardiovascular: Normal pulses, Regular rate/rhythm Gastrointestinal: Normal bowel sounds, Soft and benign, Non-distended, No tenderness, No masses, No rebound, No guarding Musculoskeletal: No erythema, No tenderness, No warmth Integumentary: No tenderness/swelling, No erythema, No warmth, No cyanosis Neurological: Normal speech, Normal strength at 5/5 x4 extr, Normal tone, Normal affect Lymphatics: No axilla or inguinal lymphadenopathy Laboratory Data at Discharge: WBC 5.9 K/uL (4.3-10.9) D 12/26/17 03:41 Hgb 9.8 g/dL (12.0-15.0) L 12/26/17 03:41 Hct 29.5 % (36.0-45.0) L 12/26/17 03:41 Plt Count 157 K/uL (152-406) 12/26/17 03:41 Sodium 134 mEq/L (135-145) L 12/26/17 03:41 Potassium 3.4 mEq/L (3.6-5.0) L 12/26/17 03:41 BUN 10 mg/dL (6-20) 12/26/17 03:41 Creatinine 1.08 mg/dL (0.44-1.00) H 12/26/17 03:41 Glucose 91 mg/dL (65-120) 12/26/17 03:41 Uric Acid 5.9 mg/dL (2.6-8.0) 12/26/17 03:41 Magnesium 1.4 mg/dL (1.8-2.5) L* 12/26/17 03:41 B-Natriuretic Peptide 505 pg/ml (<=100) H 12/25/17 14:47 Home Medications: Ipratropium/Albuterol Sulfate [Combivent Respimat Inhal [place]] 1 puff IH Q6HP PRN 11/10/17 Ipratropium/Albuterol Sulfate [Iprat-Albut 0.5-3(2.5) mg/3 ml] 1 vial NEB Q8HP PRN 11/10/17 Alprazolam [Xanax*] 0.25 mg PO TID PRN #30 tab 11/17/17 Arformoterol Tartrate [Brovana] 15 mcg NEB BIDRESP #5 vial.neb 11/17/17 Buspirone HCl 30 mg PO DAILY #30 tablet 11/17/17 Hydralazine HCl [Apresoline] 100 mg PO TID #180 tablet 11/17/17 Labetalol HCl [Trandate] 400 mg PO BID #120 tablet 11/17/17 Levothyroxine [Synthroid*] 112 mcg PO [id number] #30 tab 11/17/17 Lubiprostone [Amitiza*] 24 mcg PO DAILY #30 cap 11/17/17 Oxybutynin Chloride 5 mg PO TID #60 tablet 11/17/17 Sertraline [Zoloft*] 100 mg PO DAILY #30 tab 11/17/17 Sucralfate [Carafate*] 1 gm PO QID #120 tab 11/17/17 Dexlansoprazole [Dexilant] 60 mg PO DAILY 11/26/17 Cholecalciferol (Vitamin D3) [Vitamin D 5,000 IU Cap*] 5,000 unit PO DAILY #30 cap 12/26/17 Furosemide [Lasix*] 40 mg PO BIDL #60 tab 12/26/17 New Medications: Cholecalciferol (Vitamin D3) [Vitamin D 5,000 IU Cap*] 5,000 unit PO DAILY #30 cap Furosemide [Lasix*] 40 mg PO BIDL #60 tab Patient Discharge Instructions: 1. Patient will need to follow up with her PCP in 1 week to follow up this hospitalization. 2. Patient will return to skilled facility continue her rehabilitation. 3. Patient presented with increasing edema and mild shortness of breath secondary to acute on chronic CHF , diastolic dysfunction/chronic renal disease. Patient at discharge will need to continue with a 1500 cc per day fluid restriction and low-salt diet. At discharge patient will continue with Lasix 40 mg 1 pill twice daily. Recommendation is to recheck BMP in 1 week to monitor progress. Lasix may need to be adjusted over time. Recommendation is for the patient to follow up with nephrology in 1 week to monitor her care and adjustment in medication. 4. Patient has hypertension. Patient will continue with medication including labetalol 400 mg 1 pill twice daily. Recommendation is to maintain blood pressures less 150/80. Further adjustment can be done by her PCP. 5. Patient has hypothyroidism. Patient will continue with Levoxyl 112 mcg daily. 6. Patient has COPD. Patient will continue with Brovana 1 unit dose twice daily, Atrovent 1 unit dose 3 times a day as needed for shortness of breath. Recommendation is for the patient to follow up with pulmonology as an outpatient to further monitor. Symbicort has been discontinued since the patient is on Brovana. 7. Patient has depression. Patient will continue with her medication Zoloft 100 mg 1 pill daily, buspirone 30 mg daily and Xanax 0.25 mg 3 times a day as needed for anxiety. 8. Patient with history of urinary incontinence. Patient will continue with Oxybutynin 5 mg 1 pill 3 times a day. 9. Patient has GERD. Patient will continue with Dexilant once daily and Sulcrafate 4 times a day. 10. Patient with chronic constipation. Patient continue with Amitiza as directed. Diet: Renal (1500 cc per day fluid restriction and low-salt diet) Activity: Fall precautions Time spent managing pt's care (in minutes): 55
[2017-12-26 13:11] VITALS: BP 140/51; TEMP 98.4
[2017-12-26 14:37] VITALS: O2SAT 98
--- NOTE | 2017-12-26 18:27 | PN ---
Date of Progress Note: 12/26/2017 NEPHROLOGY PROGRESS NOTE Subjective: The patient states that she feels okay today. Her swelling is improving. Objective: Vital Signs: Have been reviewed. Blood pressure running in the 160s to 140s. General: She is an obese female, in no acute distress. Lungs: Clear. Abdomen: Soft. Extremities: With trace amount of edema was noted. Laboratory Data: Showing sodium of 134, potassium is 3.4, creatinine is stable at 1.08 and BUN of 10 . Current Medications: Include albuterol, Xanax, Brovana, Lovenox for DVT prophylaxis, Lasix 40 mg b.i .d., hydralazine 100 mg 3 times a day, labetalol 400 mg b.i.d., Amitiza, potassium 20 mEq x1 time dos e, Zoloft, and sucralfate 1 tablet 4 times a day. Impression: 1.[id number] renal insufficiency, currently with stable renal function. 2.Hyponatremia secondary to underlying adrenal insufficiency. The patient is supposed to be on pred nisone to maintain her potassium levels, will be restarted as an outpatient. Discussed the plan with Dr. Simon who is going to restart her prednisone 10 mg. 3.Chronic obstructive pulmonary disease, currently stable. 4.Volume overload with congestive heart failure, improving after she received a few doses of IV Lasi x. 5.Type 2 diabetes. Monitor blood sugars and adjust insulin per protocol. Plan: The patient is overall doing okay. Blood pressures are overall stable, but it is very importa nt that the patient needs to be avoided hypotension as she does have underlying renovascular disease. Her prednisone will be restarted to maintain her sodium levels, and she will follow up with Dr. Ana M abreu as an outpatient. Overall renal function has been stable. Plan was discussed with Dr. Simon in detail. VV/MODL Voice ID: [id number] Report ID: [id number]
== END 2017-12-26 15:25 ==
LOC: ER 14:17 → ERHOLD 16:45 → 4TH 19:36
PROVIDERS: ADMIT Family Medicine; ATTEND Family Medicine
DX: I13.0 Hypertensive heart and chronic kidney disease with heart failure and stage 1 through stage 4 chronic kidney disease, or unspecified chronic kidney disease (principal); N18.3 Chronic kidney disease, stage 3 (moderate); I50.33 Acute on chronic diastolic (congestive) heart failure; J44.9 Chronic obstructive pulmonary disease, unspecified; D63.1 Anemia in chronic kidney disease; E03.9 Hypothyroidism, unspecified; K21.9 Gastro-esophageal reflux disease without esophagitis; R32 Unspecified urinary incontinence; F41.8 Other specified anxiety disorders; E27.40 Unspecified adrenocortical insufficiency; E87.1 Hypo-osmolality and hyponatremia
CPT/HCPCS: 36415; 71045; 71046; 80048 ×2; 81003 ×2; 83735 ×2; 83880; 84439; 84443; 84484; 84550; 85025 ×2; 87040 ×2; 93005; 94640; 96374; 99285; G0378 ×2; J0360; J1650 ×2; J3475; J7605

== ENCOUNTER 2018-06-07 17:11 | Emergency (ER) | payer OTHER ==
[2018-06-07] MEDS ORDERED: HYDROCODONE/APAP 5/325 MG TAB ONE (18:33)
--- NOTE | 2018-06-07 18:41 | RAD REPORT ---
EXAM DESCRIPTION: CT - Head C Spine Mpr Wo Con - 06/07/2018 6:19 pm CLINICAL HISTORY: Head and neck injury status post fall. Head and neck pain COMPARISON: 2014 TECHNIQUE: Computed axial tomography of the head and cervical spine was obtained. Sagittal and coronal reconstruction was performed. All CT scans are performed using dose optimization technique as appropriate and may include automated exposure control or mA/KV adjustment according to patient size. FINDINGS: An intracranial bleed is not seen. The ventricles are normal in caliber. An extra-axial fl uid collection is not noted.Fluid within the visualized sinuses and mastoids is not seen A cervical fracture is not visualized. No dislocation is noted. Sideplate and screws anteriorly fuse C4 through C7. Spondylosis C3-4 results in moderate left foraminal stenosis IMPRESSION: No acute intracranial abnormality is seen. A cervical fracture is not visualized. If the patient continues to have symptoms to suggest intracra nial /spinal cord pathology then MRI would be recommended
--- NOTE | 2018-06-07 19:17 | RAD REPORT ---
EXAM DESCRIPTION: RAD - Shoulder Right 2 View - 06/07/2018 7:00 pm CLINICAL HISTORY: Right shoulder pain status post fall FINDINGS: No fracture or dislocation is seen. Right shoulder arthroplast has been performed. The bon es are osteoporotic
--- NOTE | 2018-06-07 20:03 | RAD REPORT ---
EXAM DESCRIPTION: RAD - Lumbar Spine 3 Views - 06/07/2018 7:42 pm CLINICAL HISTORY: Back pain FINDINGS: The alignment of the lumbar spine is satisfactory. No acute fracture or dislocation is seen. Cement has been placed into an old L1 fracture. The bones are osteoporotic
--- NOTE | 2018-06-07 20:13 | ER ---
Nurse's Notes [facility] Name: Maura Harris Age: 77 yrs Sex: Female : 1940 Arrival Date: 06/07/2018 Time: 17:14 Bed 7 Private MD: Diagnosis: Contusion of left shoulder;Contusion of right shoulder;Contusion of unspecified part of head;Sprain of joints and ligaments of other parts of neck;Low back pain;Other slipping, tripping and stumbling and falls Presentation: 06/07 17:30 Presenting complaint: Patient states: "I went in the bank, I slipped somehow and fell aj1 backwards onto the concrete. They had to come lift me off the ground. I hit my head and my back." Denies LOC, vomiting. Denies taking blood thinners. Reports pain in her neck shoulders, back and the back of her head. Care prior to arrival: None. Mechanism of Injury: Fall from standing position. Trauma event details: Injury occurred in the [facility]. 17:30 Acuity: ELICIA 3 aj1 17:30 Method Of Arrival: Wheelchair aj1 17:34 Transition of care: patient was not received from another setting of care. Onset of aj1 symptoms was June 07, 2018. Risk Assessment: Do you want to hurt yourself or someone else? Patient reports no desire to harm self or others. Initial Sepsis Screen: Does the patient meet any 2 criteria? No. Patient's initial sepsis screen is negative. Does the patient have a suspected source of infection? No. Patient's initial sepsis screen is negative. Trauma Activation: Not Applicable Physician: ED Physician; Name: ; Notified At: ; Arrived At: Physician: General Surgeon; Name: ; Notified At: ; Arrived At: Physician: Radiology; Name: ; Notified At: ; Arrived At: Physician: Respiratory; Name: ; Notified At: ; Arrived At: Physician: Lab; Name: ; Notified At: ; Arrived At: Historical: - Allergies: 17:36 BACLOFEN; aj1 17:36 Compazine; aj1 17:36 Macrobid; aj1 17:36 Ondansetron HCl; aj1 17:36 prochlorperazine Edisylate; aj1 17:36 Vancomycin; aj1 17:36 cefepime; aj1 - Home Meds: 17:36 amlodipine 2.5 mg tab 1 tab once daily [Active]; doxazosin 5mg Oral tab 1 tab once aj1 daily [Active]; furosemide 40 mg Oral tab 1 tab once daily [Active]; labetalol 200 mg Oral tab 1 tab 2 times per day [Active]; levothyroxine 100 mcg tab [Active]; Multiple Vitamins with Iron 1 tab Oral daily [Active]; oxybutynin chloride 5 mg Oral tr24 1 tab once daily [Active]; sertraline 100 mg Oral tab 1 tab once daily [Active]; sodium polystyrene sulfonate Oral powd 20 mL 2 times per day [Active]; - PMHx: 17:36 COPD; GERD; Hypertension; Hypothyroidism; lymphedema; retained cholelithiasis; aj1 - Immunization history: Last tetanus immunization: unknown. - Social history:: Smoking status: Patient/guardian denies using tobacco. - Ebola Screening: : Patient denies travel to an Ebola-affected area in the 21 days before illness onset. Screenin:30 Abuse screen: Denies threats or abuse. Denies injuries from another. Tuberculosis aj1 screening: No symptoms or risk factors identified. 18:31 Fall Risk Fall in past 12 months (25 points). Secondary diagnosis (15 points) impaired ph mobility, No IV (0 pts). Ambulatory Aid- Crutches/Cane/Walker (15 pts). Gait- Impaired (20 pts.). Mental Status- Oriented to own ability (0 pts). Total Mcallister Fall Scale indicates High Risk Score (45 or more points). Fall prevention measures have been instituted. Side Rails Up X 2 Frequent Obs/Assessments Occuring Family Present and informed to notify staff if the need to leave the bedside As available patient and family educated on Fall Prevention Program and Strategies. 18:31 Nutritional screening: No deficits noted. ph Primary Survey: 17:30 A: Airway: patent. Breathing/Chest: Respiratory pattern: regular, Respiratory effort: aj1 spontaneous, unlabored. Circulation: Skin color: pink. Disability Alert. 19:16 Reassessment Breathing/Chest Respiratory pattern Regular Respiratory effort Spontaneous ph Unlabored Disability Alert. Assessment: 17:30 General: Appears in no apparent distress. uncomfortable, Behavior is calm, cooperative, aj1 appropriate for age. Pain: Complains of pain in scalp, back, buttocks, right arm, left arm, right leg, left leg and neck Pain currently is 8 out of 10 on a pain scale. Neuro: Level of Consciousness is awake, alert, obeys commands. Cardiovascular: Patient's skin is warm and dry. Respiratory: Airway is patent Respiratory effort is even, unlabored, Respiratory pattern is regular, symmetrical. 17:45 General: Appears in no apparent distress. uncomfortable, well groomed, Behavior is ph calm, cooperative, appropriate for age. Pain: Complains of pain in left trapezius, right trapezius, left scapular area and right scapular area, posterior neck, and occipital area. Neuro: Level of Consciousness is awake, alert, obeys commands, Oriented to person, place, time, situation, Denies blurred vision dizziness. Cardiovascular: Capillary refill < 3 seconds in bilateral fingers Patient's skin is warm and dry. Respiratory: Airway is patent Respiratory effort is even, unlabored, Respiratory pattern is regular, symmetrical. GI: No signs and/or symptoms were reported involving the gastrointestinal system. Reports nausea, vomiting. Derm: Skin is fragile, is thin, Skin is pink, warm \\T\\ dry. Musculoskeletal: Circulation, motion, and sensation intact. Range of motion: intact in all extremities. Injury Description: Abrasion sustained to lateral aspect of right hand is skin tear w/ no bleeding noted. 19:15 Reassessment: Patient appears in no apparent distress at this time. Patient and/or ph family updated on plan of care and expected duration. Pain level reassessed. Patient is alert, oriented x 3, equal unlabored respirations, skin warm/dry/pink. Pt resting quietly, awaiting radiology results. 19:29 General: Appears in no apparent distress. comfortable, Behavior is calm, cooperative, rr5 appropriate for age. Pain: Complains of pain in right hand, left arm,neck, lower extremties Pain currently is 7 out of 10 on a pain scale. Neuro: Level of Consciousness is awake, alert, obeys commands, Oriented to person, place, time, situation, Denies blurred vision dizziness. Cardiovascular: Capillary refill < 3 seconds Patient's skin is warm and dry. Respiratory: Airway is patent Respiratory effort is even, unlabored, Respiratory pattern is regular, symmetrical. GI: No signs and/or symptoms were reported involving the gastrointestinal system. : No signs and/or symptoms were reported regarding the genitourinary system. EENT: No signs and/or symptoms were reported regarding the EENT system. Derm: Skin is fragile, is thin, Skin is. Musculoskeletal: Circulation, motion, and sensation intact. Range of motion: intact in all extremities. Injury Description: Bruise sustained to left hand. Vital Signs: 17:30 BP 175 / 61; Pulse 67; Resp 18; Temp 98.1(TE); Pulse Ox 98% on R/A; Weight 94.35 kg aj1 (R); Height 5 ft. 5 in. (165.10 cm) (R); Pain 8/10; 18:50 BP 182 / 62; Pulse 69; Resp 18; Pulse Ox 99% on R/A; ph 19:15 BP 161 / 122; Pulse 63; Resp 17; Temp 97.9(O); Pulse Ox 100% on R/A; rr5 20:30 BP 155 / 85; rr5 17:30 Body Mass Index 34.61 (94.35 kg, 165.10 cm) aj1 [place] Coma Score: 17:30 Eye Response: spontaneous(4). Verbal Response: oriented(5). Motor Response: obeys aj1 commands(6). Total: 15. 18:50 Eye Response: spontaneous(4). Verbal Response: oriented(5). Motor Response: obeys ph commands(6). Total: 15. Trauma Score (Adult): 17:30 Eye Response: spontaneous(1); Verbal Response: oriented(1); Motor Response: obeys aj1 commands(2); Systolic BP: > 89 mm Hg(4); Respiratory Rate: 10 to 29 per min(4); Kalpana Score: 15; Trauma Score: 12 18:50 Eye Response: spontaneous(1); Verbal Response: oriented(1); Motor Response: obeys ph commands(2); Systolic BP: > 89 mm Hg(4); Respiratory Rate: 10 to 29 per min(4); Kalpana Score: 15; Trauma Score: 12 ED Course: 17:14 Patient arrived in ED. as 17:30 Patient has correct armband on for positive identification. aj1 17:30 Patient maintains SpO2 saturation greater than 95% on room air. aj1 17:32 Triage completed. aj1 17:36 Arm band placed on Patient placed in an exam room. aj1 17:41 Bk Leon, ALBER is PHCP. pm1 17:41 Gaurav Chow MD is Attending Physician. pm1 17:45 Brie Lombardo, RN is Primary Nurse. ph 18:[address] via stretcher. vm2 18:19 CT Head C Spine In Process Unspecified. EDMS 18:31 Thermoregulation: warm blanket given to patient. ph 19:00 Shoulder Left (2 View) XRAY In Process Unspecified. EDMS 19:00 Shoulder Right (2 View) XRAY In Process Unspecified. EDMS 19:16 No provider procedures requiring assistance completed. ph 19:42 Lumbar Spine (3 Views) XRAY In Process Unspecified. EDMS 20:40 Patient did not have IV access during this emergency room visit. rr5 Administered Medications: 19:00 Drug: [place] 5 mg-325 mg 1 tabs Route: PO; ph 19:15 Follow up: Response: No adverse reaction ph Intake: 18:30 PO: 0ml; Total: 0ml. ph Output: 18:30 Urine: 0ml; Total: 0ml. ph Outcome: 20:12 Discharge ordered by MD. pm1 20:40 Condition: stable rr5 20:40 Discharge instructions given to patient, family, Instructed on discharge instructions, medication usage, Demonstrated understanding of instructions, follow-up care, medications, Prescriptions given X 1. 20:41 Discharged to home via wheelchair, with family. rr5 20:42 for dischargePatient's length of stay extended due to rr5 21:08 Patient left the ED. rr5 Signatures: Dispatcher [employer] EDCristiane Rizo RN RN 1 Denise Davis as Brie Lombardo, HADLEY RN Bk Leon NP INDUSTRIAL RECRUITER pm1 Ana Nicole 2 Daniel Spears, RN RN rr5
--- NOTE | 2018-06-07 20:13 | EDPHYS ---
Physician Documentation [facility] Name: Maura Harris Age: 77 yrs Sex: Female : 1940 Arrival Date: 06/07/2018 Time: 17:14 Bed 7 Private MD: ED Physician Gaurav Chow HPI: 06/07 19:00 This 77 yrs old Female presents to ER via Wheelchair with complaints of Fall pm1 Injury. 19:00 Details of fall: The patient fell from an upright position, while standing. Onset: The pm1 symptoms/episode began/occurred just prior to arrival. Associated injuries: The patient sustained injury to the head, pain, neck injury, pain, injury to the low back, pain, left scapular area and right scapular area, pain. Patient normally uses a motorized wheelchair. She decided to walk without assistance out of the bank and was turning towards her wheelchair when she tripped on her feet. She has shoes with one sole significantly larger than the other. Patient fell backwards and hit the back of her head and both shoulders. Patient with chronic pain to cervical and lumbar areas that have had surgical repair. Patient reports increased chronic pain to these areas after falling. Historical: - Allergies: 17:36 BACLOFEN; aj1 17:36 Compazine; aj1 17:36 Macrobid; aj1 17:36 Ondansetron HCl; aj1 17:36 prochlorperazine Edisylate; aj1 17:36 Vancomycin; aj1 17:36 cefepime; aj1 - Home Meds: 17:36 amlodipine 2.5 mg tab 1 tab once daily [Active]; doxazosin 5mg Oral tab 1 tab once aj1 daily [Active]; furosemide 40 mg Oral tab 1 tab once daily [Active]; labetalol 200 mg Oral tab 1 tab 2 times per day [Active]; levothyroxine 100 mcg tab [Active]; Multiple Vitamins with Iron 1 tab Oral daily [Active]; oxybutynin chloride 5 mg Oral tr24 1 tab once daily [Active]; sertraline 100 mg Oral tab 1 tab once daily [Active]; sodium polystyrene sulfonate Oral powd 20 mL 2 times per day [Active]; - PMHx: 17:36 COPD; GERD; Hypertension; Hypothyroidism; lymphedema; retained cholelithiasis; aj1 - Immunization history: Last tetanus immunization: unknown. - Social history:: Smoking status: Patient/guardian denies using tobacco. - Ebola Screening: : Patient denies travel to an Ebola-affected area in the 21 days before illness onset. ROS: 19:00 Constitutional: Negative for fever, chills, and weight loss, Eyes: Negative for injury, pm1 pain, redness, and discharge, ENT: Negative for injury, pain, and discharge. 19:00 Cardiovascular: Negative for chest pain, palpitations, and edema, Respiratory: Negative for shortness of breath, cough, wheezing, and pleuritic chest pain, Abdomen/GI: Negative for abdominal pain, nausea, vomiting, diarrhea, and constipation. 19:00 : Negative for injury, bleeding, discharge, and swelling. 19:00 Neuro: Negative for weakness, numbness, tingling, and seizure, Positive for headache 19:00 Neck: Positive for pain, Negative for tenderness, decreased ROM. 19:00 Back: Positive for pain at rest, of the lumbar area. 19:00 MS/extremity: Positive for pain, of the right scapular area and left scapular area. 19:00 Skin: Positive for abrasion(s), of the right hand, Negative for laceration(s), swelling. Exam: 19:00 Constitutional: This is a well developed, well nourished patient who is awake, alert, pm1 and in no acute distress. 19:00 Eyes: Pupils equal round and reactive to light, extra-ocular motions intact. Lids and lashes normal. Conjunctiva and sclera are non-icteric and not injected. Cornea within normal limits. Periorbital areas with no swelling, redness, or edema. ENT: Nares patent. No nasal discharge, no septal abnormalities noted. Tympanic membranes are normal and external auditory canals are clear. Oropharynx with no redness, swelling, or masses, exudates, or evidence of obstruction, uvula midline. Mucous membranes moist. 19:00 Chest/axilla: Normal chest wall appearance and motion. Nontender with no deformity. No lesions are appreciated. Cardiovascular: Regular rate and rhythm with a normal S1 and S2. No gallops, murmurs, or rubs. Normal PMI, no JVD. No pulse deficits. Respiratory: Lungs have equal breath sounds bilaterally, clear to auscultation and percussion. No rales, rhonchi or wheezes noted. No increased work of breathing, no retractions or nasal flaring. Abdomen/GI: Soft, non-tender, with normal bowel sounds. No distension or tympany. No guarding or rebound. No evidence of tenderness throughout. 19:00 MS/ Extremity: Pulses equal, no cyanosis. Neurovascular intact. Full, normal range of motion. 19:00 Head/face: Exam is negative for rhoades signs, deformity, raccoon eyes, Noted is no obvious of injury or deformity except tenderness, that is mild, of the occipital area. 19:00 Neck: External neck: is normal, C-spine: vertebral tenderness, is not appreciated. 19:00 Back: pain, that is mild, of the left scapular area, right scapular area and lumbar area. 19:00 Skin: Appearance: normal except for affected area, injury, abrasion(s), small abrasion noted, of the right hand. 19:00 Neuro: Orientation: is normal, Mentation: is normal, Motor: is normal, moves all fours, Sensation: is normal, no obvious gross deficits. Vital Signs: 17:30 BP 175 / 61; Pulse 67; Resp 18; Temp 98.1(TE); Pulse Ox 98% on R/A; Weight 94.35 kg aj1 (R); Height 5 ft. 5 in. (165.10 cm) (R); Pain 8/10; 18:50 BP 182 / 62; Pulse 69; Resp 18; Pulse Ox 99% on R/A; ph 19:15 BP 161 / 122; Pulse 63; Resp 17; Temp 97.9(O); Pulse Ox 100% on R/A; rr5 20:30 BP 155 / 85; rr5 17:30 Body Mass Index 34.61 (94.35 kg, 165.10 cm) aj1 [place] Coma Score: 17:30 Eye Response: spontaneous(4). Verbal Response: oriented(5). Motor Response: obeys aj1 commands(6). Total: 15. 18:50 Eye Response: spontaneous(4). Verbal Response: oriented(5). Motor Response: obeys ph commands(6). Total: 15. Trauma Score (Adult): 17:30 Eye Response: spontaneous(1); Verbal Response: oriented(1); Motor Response: obeys aj1 commands(2); Systolic BP: > 89 mm Hg(4); Respiratory Rate: 10 to 29 per min(4); Kalpana Score: 15; Trauma Score: 12 18:50 Eye Response: spontaneous(1); Verbal Response: oriented(1); Motor Response: obeys ph commands(2); Systolic BP: > 89 mm Hg(4); Respiratory Rate: 10 to 29 per min(4); [place] Score: 15; Trauma Score: 12 MDM: 17:41 Patient medically screened. pm1 20:08 Data reviewed: vital signs. Data interpreted: Pulse oximetry: on room air is 100 %. pm1 Interpretation: normal. Counseling: I had a detailed discussion with the patient and/or guardian regarding: the historical points, exam findings, and any diagnostic results supporting the discharge/admit diagnosis, radiology results, the need for outpatient follow up, to return to the emergency department if symptoms worsen or persist or if there are any questions or concerns that arise at home. 06/07 18:01 Order name: CT Head C Spine; Complete Time: 18:51 pm1 06/07 18:01 Order name: Shoulder Left (2 View) XRAY; Complete Time: 19:26 pm1 06/07 18:01 Order name: Shoulder Right (2 View) XRAY; Complete Time: 19:26 pm1 06/07 18:01 Order name: Lumbar Spine (3 Views) XRAY; Complete Time: 20:08 pm1 Administered Medications: 19:00 Drug: [place] 5 mg-325 mg 1 tabs Route: PO; ph 19:15 Follow up: Response: No adverse reaction ph Disposition: 06/07/18 20:12 Discharged to Home. Impression: Contusion of left shoulder, Contusion of right shoulder, Contusion of unspecified part of head, Sprain of joints and ligaments of other parts of neck, Low back pain, Other slipping, tripping and stumbling and falls. - Condition is Stable. - Discharge Instructions: Back Pain, Adult, Chronic Back Pain, Contusion, Head Injury, Adult, Fall Prevention in the Home, Muscle Strain. - Prescriptions for Tylenol- Codeine #3 300-30 mg Oral Tablet - take 1 tablet by ORAL route every 8 hours As needed; 12 tablet. - Medication Reconciliation Form, Thank You Letter, Prescription Opioid Use form. - Follow up: Emergency Department; When: As needed; Reason: Worsening of condition. Follow up: Private Physician; When: 2 - 3 days; Reason: Recheck today's complaints, Continuance of care, Re-evaluation by your physician. - Problem is new. - Symptoms have improved. Addendum: 06/10/2018 07:45 Co-signature as Attending Physician, Gaurav Chow MD. r n Signatures: Dispatcher [employer] EDMS Cristiane Wilde RN RN aj1 Gaurav Chow MD MD rn Hall, Patricia, RN RN Bk Crooks, [employer] INTELLIGENCE OFFICER CHIEF [employer]TELLIGENCE OFFICER CHIEF pm1 Daniel Spears RN RN rr5 Corrections: (The following items were deleted from the chart) 06/07 20:23 20:12 06/07/2018 20:12 Discharged to Home. Impression: Contusion of left shoulder; pm1 Contusion of right shoulder; Contusion of unspecified part of head; Sprain of joints and ligaments of other parts of neck; Low back pain. Condition is Stable. Forms are Medication Reconciliation Form, Thank You Letter, Antibiotic Education, Prescription Opioid Use. Follow up: Emergency Department; When: As needed; Reason: Worsening of condition. Follow up: Private Physician; When: 2 - 3 days; Reason: Recheck today's complaints, Continuance of care, Re-evaluation by your physician. Problem is new. Symptoms have improved. pm1 21:08 20:23 06/07/2018 20:12 Discharged to Home. Impression: Contusion of left shoulder; rr5 Contusion of right shoulder; Contusion of unspecified part of head; Sprain of joints and ligaments of other parts of neck; Low back pain; Other slipping, tripping and stumbling and falls. Condition is Stable. Discharge Instructions: Back Pain, Adult, Chronic Back Pain, Contusion, Head Injury, Adult, Fall Prevention in the Home, Muscle Strain. Prescriptions for Tylenol-Codeine #3 300-30 mg Oral Tablet - take 1 tablet by ORAL route every 8 hours As needed; 12 tablet. and Forms are Medication Reconciliation Form, Thank You Letter, Prescription Opioid Use. Follow up: Emergency Department; When: As needed; Reason: Worsening of condition. Follow up: Private Physician; When: 2 - 3 days; Reason: Recheck today's complaints, Continuance of care, Re-evaluation by your physician. Problem is new. Symptoms have improved. pm1 22:55 19:00 Neuro: Negative for headache, weakness, numbness, tingling, and seizure, pm1 pm1
[2018-06-07 21:57] VITALS: TEMP 97.9; O2SAT 100
[2018-06-07 21:58] VITALS: BP 155/85
== END 2018-06-07 21:08 | disposition home or self-care (01) ==
LOC: ER 17:11
DX: S13.8XXA Sprain of joints and ligaments of other parts of neck, initial encounter (principal); S40.012A Contusion of left shoulder, initial encounter; S40.011A Contusion of right shoulder, initial encounter; S00.93XA Contusion of unspecified part of head, initial encounter; W01.0XXA Fall on same level from slipping, tripping and stumbling without subsequent striking against object, initial encounter; Y93.89 Activity, other specified; Y92.9 Unspecified place or not applicable; Z88.1 Allergy status to other antibiotic agents; Z88.3 Allergy status to other anti-infective agents; Z88.8 Allergy status to other drugs, medicaments and biological substances; I10 Essential (primary) hypertension; E03.9 Hypothyroidism, unspecified; J44.9 Chronic obstructive pulmonary disease, unspecified
CPT/HCPCS: 70450; 72100; 72125; 99284

== ENCOUNTER 2018-12-18 13:24 | Emergency (ER) | payer OTHER ==
[2018-12-18 14:39] LABS: Absolute Lymphocytes (CBC) 0.8 K/uL (0.7-4.9); Absolute Monocytes 0.3 K/uL (0.1-1.3); Basophils % 0.4 % (0-1.3); Eosinophils % 0.4 % (0-4.4); Hematocrit 32.1 % (36.0-45.0); Lymphocytes % 7.9 % (15.3-44.8); MPV 9.2 fL (7.6-11.3); Monocytes % 2.7 % (3.3-12.3); RBC Red Blood Cell Count 3.76 M/uL (3.86-4.86)
[2018-12-18] MEDS ORDERED: MAGNE/ALUM HYDROXD 30 ML UCUP ONE (14:40)
[2018-12-18] MEDS ORDERED: LIDOCAINE VISCOUS 2% SOLN 15 ML UDC ONE (14:40)
[2018-12-18 15:41] LABS: Urine Blood NEGATIVE (NEG); Urine Glucose NEGATIVE (NEG); Urine Protein NEGATIVE (NEG); Urine Specific Gravity <1.005 (1.005-1.030); Urine pH 6.5 (5.0-7.0)
[2018-12-18 16:04] LABS: ALT/SGPT 20 U/L (12-78); AST/SGOT 15 U/L (15-37); Albumin 3.3 g/dL (3.4-5.0); Alkaline Phosphatase 66 U/L (45-117); BUN Blood Urea Nitrogen 25 mg/dL (7-18); Bicarbonate 27 mmol/L (21-32); Bilirubin Direct < 0.1 mg/dL (0-0.2); Bilirubin Total 0.3 mg/dL (0.2-1.0); Glucose Level 104 mg/dL (74-106); Lipase 152 U/L (73-393); Potassium 4.6 mmol/L (3.5-5.1); Protein, Total 7.2 g/dL (6.4-8.2); Sodium Level 140 mmol/L (136-145)
--- NOTE | 2018-12-18 16:57 | RAD REPORT ---
EXAM DESCRIPTION: CT - Abdomen Pelvis W Contrast - 12/18/2018 4:36 pm CLINICAL HISTORY: Abdominal pain with nausea. COMPARISON: none. TECHNIQUE: Computed axial tomography of the abdomen pelvis was obtained. 100 cc Isovue-300 was admin istered intravenously. Oral contrast was not requested which limits evaluation of bowel. All CT scans are performed using dose optimization technique as appropriate and may include automated exposure control or mA/KV adjustment according to patient size. FINDINGS: Moderate to large hiatal hernia The liver, spleen, pancreas, adrenal and left kidney appear unremarkable. Small right kidney. There is no evidence of diverticulitis. Chronic left hip dislocation Cement has been placed into an old L1 vertebral body fracture Cholecystectomy IMPRESSION: Moderate to large hiatal hernia.
[2018-12-18 17:13] LABS: Blood Morphology Comment NOT SEEN (NOT SEEN); Platelet Estimate ADEQ; Urine White Blood Cell Casts OK
--- NOTE | 2018-12-18 17:17 | ER ---
Nurse's Notes [facility] Name: Maura Harris Age: 78 yrs Sex: Female : 1940 Arrival Date: 12/18/2018 Time: 13:27 Bed 4 Private MD: Jaswinder Rodríguez V Diagnosis: Hypertension;Hiatal Hernia;Gastritis, unspecified Presentation: 12/18 13:29 Presenting complaint: Patient states: I was supposed to have an upper GI on Sunday but la1 my BP was too high and they could not do the test. Now I am still having abd pain and my BP is running high (199/99). Transition of care: patient was not received from another setting of care. Onset of symptoms was December 18, 2018. Risk Assessment: Do you want to hurt yourself or someone else? Patient reports no desire to harm self or others. Initial Sepsis Screen: Does the patient meet any 2 criteria? No. Patient's initial sepsis screen is negative. Does the patient have a suspected source of infection? No. Patient's initial sepsis screen is negative. Care prior to arrival: None. 13:29 Method Of Arrival: Wheelchair la1 13:29 Acuity: ELICIA 3 la1 Historical: - Allergies: 13:29 BACLOFEN; la1 13:29 Compazine; la1 14:41 Macrobid; tw2 14:41 Ondansetron HCl; tw2 14:41 prochlorperazine Edisylate; tw2 14:41 Vancomycin; tw2 14:41 Demerol; tw2 - Home Meds: 14:41 sodium polystyrene sulfonate Oral powd 20 mL 2 times per day [Active]; amlodipine 2.5 tw2 mg tab 1 tab once daily [Active]; doxazosin 5mg Oral tab 1 tab once daily [Active]; furosemide 40 mg Oral tab 1 tab once daily [Active]; labetalol 200 mg Oral tab 1 tab 2 times per day [Active]; levothyroxine 100 mcg tab [Active]; Multiple Vitamins with Iron 1 tab Oral daily [Active]; oxybutynin chloride 5 mg Oral tr24 1 tab once daily [Active]; sertraline 100 mg Oral tab 1 tab once daily [Active]; - PMHx: 13:29 COPD; GERD; Hypertension; Hypothyroidism; lymphedema; retained cholelithiasis; la1 - Immunization history:: Adult Immunizations up to date. - Social history:: Smoking status: Patient/guardian denies using tobacco. - Ebola Screening: : No symptoms or risks identified at this time. - Family history:: not pertinent. - Hospitalizations: : No recent hospitalization is reported. Screenin:36 Abuse screen: Denies threats or abuse. Nutritional screening: No deficits noted. tw2 Tuberculosis screening: No symptoms or risk factors identified. Fall Risk Secondary diagnosis (15 points) impaired mobility, Ambulatory Aid- Furniture (30 pts.). Assessment: 14:34 General: Appears in no apparent distress. obese, well groomed, Behavior is calm, tw2 cooperative, appropriate for age. Pain: Denies pain. Neuro: Level of Consciousness is awake, alert, obeys commands, Oriented to person, place, time, situation. Cardiovascular: Heart tones S1 S2 Patient's skin is warm and dry. Respiratory: Airway is patent Respiratory effort is even, unlabored, Respiratory pattern is regular, symmetrical, Breath sounds are clear bilaterally. GI: Abdomen is round non-distended, obese, Bowel sounds present X 4 quads. Reports "taking a stool softener to help me go because i am supposed to have an upper gi scope soon". : No signs and/or symptoms were reported regarding the genitourinary system. EENT: No signs and/or symptoms were reported regarding the EENT system. Derm: No signs and/or symptoms reported regarding the dermatologic system. Musculoskeletal: Range of motion: intact in all extremities, pt has elevated LEFT shoe, reports inability to use RIGHT arm, uses electric scooter for ambulation. 14:57 Reassessment: Patient appears in no apparent distress at this time. No changes from tw2 previously documented assessment. Patient and/or family updated on plan of care and expected duration. Pain level reassessed. Patient is alert, oriented x 3, equal unlabored respirations, skin warm/dry/pink. 16:04 Reassessment: Patient appears in no apparent distress at this time. No changes from tw2 previously documented assessment. Patient and/or family updated on plan of care and expected duration. Pain level reassessed. Patient is alert, oriented x 3, equal unlabored respirations, skin warm/dry/pink. 17:04 Reassessment: Patient appears in no apparent distress at this time. No changes from tw2 previously documented assessment. Patient and/or family updated on plan of care and expected duration. Pain level reassessed. Patient is alert, oriented x 3, equal unlabored respirations, skin warm/dry/pink. provider at bedside at this time. 17:33 Reassessment: Patient appears in no apparent distress at this time. No changes from tw2 previously documented assessment. Patient and/or family updated on plan of care and expected duration. Pain level reassessed. Patient is alert, oriented x 3, equal unlabored respirations, skin warm/dry/pink. Vital Signs: 13:33 Pulse 76; Resp 16; Temp 97.2; Pulse Ox 98% ; Weight 93.89 kg; Height 5 ft. 5 in. la1 (165.10 cm); 13:34 BP 177 / 73; la1 14:57 BP 187 / 70; Pulse 57; Resp 17; Pulse Ox 98% on R/A; tw2 16:05 BP 152 / 58; Pulse 58; Resp 17; Pulse Ox 98% on R/A; tw2 17:10 BP 150 / 60; Pulse 59; Resp 17; Pulse Ox 98% on R/A; tw2 13:33 Body Mass Index 34.45 (93.89 kg, 165.10 cm) la1 ED Course: 13:27 Patient arrived in ED. mr 13:27 Jaswinder Rodríguez MD is Private Physician. mr 13:29 Arm band placed on right wrist. la1 13:31 Triage completed. la1 14:11 Gaurav Chow MD is Attending Physician. rn 14:24 EKG done, by explosive ordnance technician. reviewed by Gaurav Chow MD. at1 14:25 Initial lab(s) drawn, by ky, sent to lab. Inserted saline lock: 20 gauge in right em1 antecubital area, using aseptic technique. Blood collected. 14:34 Elisabeth Ornelas, HADLEY is Primary Nurse. tw2 14:36 Bed in low position. Call light in reach. Side rails up X2. flatwork presser on. Pulse tw2 ox on. NIBP on. 16:[address] via wheelchair. jj2 16:35 CT completed. Patient tolerated procedure well. Patient moved back from CT. jj2 16:38 CT Abd/Pelvis - W/Contrast In Process Unspecified. EDMS 17:16 Ramesh De Los Santos MD is Referral Physician. rn 17:33 No provider procedures requiring assistance completed. IV discontinued, intact, tw2 bleeding controlled, No redness/swelling at site. Pressure dressing applied. Administered Medications: 14:30 Drug: GI Cocktail without - (Maalox Suspension 30 ml, Lidocaine Liquid 2 % 15 tw2 ml) Route: PO; 15:54 Follow up: Response: No adverse reaction tw2 Outcome: 17:17 Discharge ordered by MD. rn 17:33 Discharged to home with significant other, electric scooter tw2 17:33 Condition: stable 17:33 Discharge instructions given to patient, significant other, Instructed on discharge instructions, follow up and referral plans. Demonstrated understanding of instructions, follow-up care. 17:34 Patient left the ED. tw2 Signatures: Dispatcher [employer] [facility] JasMaura mr Osorio, Facundo jj2 Gaurav Chow MD MD rn Martinez, Eric em1 Yoanna Senior, visiting nurse EKG Tat1 Ole Panda RN RN la1 Elisabeth Ornelas RN RN tw2
--- NOTE | 2018-12-18 17:18 | EDPHYS ---
Physician Documentation [facility] Name: Maura Harris Age: 78 yrs Sex: Female : 1940 Arrival Date: 12/18/2018 Time: 13:27 Bed 4 Private MD: Jaswinder Rodríguez V ED Physician Gaurav Chow HPI: 12/18 15:29 This 78 yrs old Female presents to ER via Wheelchair with complaints of High rn Blood Pressure. 15:29 This 78 yrs old Female presents to ER via Wheelchair with complaints of High rn Blood Pressure, abd pain. 15:29 The patient has elevated blood pressure and discovered this at home. Onset: The rn symptoms/episode began/occurred at an unknown time. Modifying factors:. Severity of symptoms: At its worst the blood pressure was moderate, in the emergency department the blood pressure is improved. The patient has experienced similar episodes in the past. Reports noticed high blood pressure at home, took several readings, states has UGI scheduled but concerned they may not do it with this blood pressure. Just seen by cardiology and has cardiac clearance. No fever. Reports still having abd pain, epigastric, reports belching, felt constipated but had a bowel movement with laxative. Has had gallbladder removed. She is worried it is her pancreas. . Historical: - Allergies: 13:29 BACLOFEN; la1 13:29 Compazine; la1 14:41 Macrobid; tw2 14:41 Ondansetron HCl; tw2 14:41 prochlorperazine Edisylate; tw2 14:41 Vancomycin; tw2 14:41 Demerol; tw2 - Home Meds: 14:41 sodium polystyrene sulfonate Oral powd 20 mL 2 times per day [Active]; amlodipine 2.5 tw2 mg tab 1 tab once daily [Active]; doxazosin 5mg Oral tab 1 tab once daily [Active]; furosemide 40 mg Oral tab 1 tab once daily [Active]; labetalol 200 mg Oral tab 1 tab 2 times per day [Active]; levothyroxine 100 mcg tab [Active]; Multiple Vitamins with Iron 1 tab Oral daily [Active]; oxybutynin chloride 5 mg Oral tr24 1 tab once daily [Active]; sertraline 100 mg Oral tab 1 tab once daily [Active]; - PMHx: 13:29 COPD; GERD; Hypertension; Hypothyroidism; lymphedema; retained cholelithiasis; la1 - Immunization history:: Adult Immunizations up to date. - Social history:: Smoking status: Patient/guardian denies using tobacco. - Ebola Screening: : No symptoms or risks identified at this time. - Family history:: not pertinent. - Hospitalizations: : No recent hospitalization is reported. ROS: 15:29 Constitutional: Negative for fever, chills, and weight loss, Eyes: Negative for injury, rn pain, redness, and discharge, Neck: Negative for injury, pain, and swelling, Cardiovascular: Negative for chest pain, palpitations, and edema, Respiratory: Negative for shortness of breath, cough, wheezing, and pleuritic chest pain, Abdomen/GI: Negative for diarrhea MS/Extremity: Negative for injury and deformity, Skin: Negative for injury, rash, and discoloration, Neuro: Negative for headache, weakness, numbness, tingling, and seizure. Exam: 15:29 Constitutional: This is a well developed, well nourished patient who is awake, alert, rn and in no acute distress. Head/Face: Normocephalic, atraumatic. ENT: MMM Neck: Trachea midline, no thyromegaly or masses palpated, and no cervical lymphadenopathy. Supple, full range of motion without nuchal rigidity, or vertebral point tenderness. No Meningismus. Cardiovascular: Regular, bradycardic, no murmurs Respiratory: No increased work of breathing, no retractions or nasal flaring. Abdomen/GI: soft, mild epigastric tenderness, no rebound MS/ Extremity: Pulses equal, no cyanosis. Neurovascular intact. Full, normal range of motion. Equal circumference. Neuro: Awake and alert, GCS 15, oriented to person, place, time, and situation. Vital Signs: 13:33 Pulse 76; Resp 16; Temp 97.2; Pulse Ox 98% ; Weight 93.89 kg; Height 5 ft. 5 in. la1 (165.10 cm); 13:34 BP 177 / 73; la1 14:57 BP 187 / 70; Pulse 57; Resp 17; Pulse Ox 98% on R/A; tw2 16:05 BP 152 / 58; Pulse 58; Resp 17; Pulse Ox 98% on R/A; tw2 17:10 BP 150 / 60; Pulse 59; Resp 17; Pulse Ox 98% on R/A; tw2 13:33 Body Mass Index 34.45 (93.89 kg, 165.10 cm) la1 MDM: 14:11 Patient medically screened. rn 17:08 Differential diagnosis: Malignant HTN, hiatal hernia, pancreatitis, chronic abd pain, rn gastritis. Data reviewed: vital signs, nurses notes, lab test result(s), radiologic studies, CT scan, and as a result, I will discharge patient. 17:14 Counseling: I had a detailed discussion with the patient and/or guardian regarding: the rn historical points, exam findings, and any diagnostic results supporting the discharge/admit diagnosis, lab results, radiology results, the need for outpatient follow up, to return to the emergency department if symptoms worsen or persist or if there are any questions or concerns that arise at home. Response to treatment: the patient's symptoms have mildly improved after treatment, and as a result, I will discharge patient. Special discussion: Based on the patient's Hx, exam, and Dx evaluation, there is no indication for emergent surgery or inpatient Tx. It is understood by the patient/guardian that if the Sx's persist or worsen they need to return immediately for re-evaluation. I discussed with the patient/guardian in detail that at this point there is no indication for admission to the hospital. It is understood, however, that if the symptoms persist or worsen the patient needs to return immediately for re-evaluation. Based on the history and exam findings, there is no indication for further emergent testing or inpatient evaluation. I discussed with the patient/guardian the need to see the fashion adviser for further evaluation of the symptoms. ED course: Pt with moderate hiatal hernia which explains chronic abd pain, and acid problems, has even needed esophageal dilatation, is on antacids, recommended dietary and behavioral changes, and told to f/u with GI. . 12/18 14:17 Order name: Basic Metabolic Panel; Complete Time: 16:14 rn 12/18 14:17 Order name: CBC with Diff; Complete Time: 17:14 rn 12/18 14:17 Order name: Hepatic Function; Complete Time: 16:14 rn 12/18 14:17 Order name: Lipase; Complete Time: 16: rn 12/18 15:27 Order name: Urine Dipstick--Ancillary (enter results); Complete Time: 15:49 bd 12/18 17:14 Order name: CBC Smear Scan; Complete Time: 17:14 EDMS 12/18 14:17 Order name: IV Saline Lock; Complete Time: 14:34 rn 12/18 14:17 Order name: Labs collected and sent; Complete Time: 14:34 rn 12/18 14:17 Order name: EKG; Complete Time: 14:17 rn 12/18 14:17 Order name: EKG - Nurse/Tech; Complete Time: 14:34 rn 12/18 16:15 Order name: CT Abd/Pelvis - W/Contrast; Complete Time: 16:58 rn Administered Medications: 14:30 Drug: GI Cocktail without - (Maalox Suspension 30 ml, Lidocaine Liquid 2 % 15 tw2 ml) Route: PO; 15:54 Follow up: Response: No adverse reaction tw2 Disposition: 12/18/18 17:17 Discharged to Home. Impression: Hypertension, Hiatal Hernia, Gastritis, unspecified. - Condition is Stable. - Discharge Instructions: Gastritis, Adult, Hiatal Hernia. - Medication Reconciliation Form, Thank You Letter, Antibiotic Education, Prescription Opioid Use form. - Follow up: Ramesh De Los Santos MD; When: As needed; Reason: Further diagnostic work-up, Recheck today's complaints, Continuance of care, Re-evaluation by your physician. - Problem is new. - Symptoms have improved. Signatures: Dispatcher [employer] [facility] Gaurav Chow MD MD rn Attema, Lee, RN RN la1 Elisabeth Ornelas RN RN tw2 Corrections: (The following items were deleted from the chart) 17:34 17:17 12/18/2018 17:17 Discharged to Home. Impression: Hypertension; Hiatal Hernia; tw2 Gastritis, unspecified. Condition is Stable. Forms are Medication Reconciliation Form, Thank You Letter, Antibiotic Education, Prescription Opioid Use. Follow up: Ramesh De Los Santos; When: As needed; Reason: Further diagnostic work-up, Recheck today's complaints, Continuance of care, Re-evaluation by your physician. Problem is new. Symptoms have improved. rn
--- NOTE | 2018-12-18 18:24 | EKG ---
Test Date: 2018-12-18 Test Time: 14:24:16 Crisis Mental Health Therapist: BARBARA MEASUREMENT RESULTS: Intervals: Rate: 55 ME: 180 QRSD: 88 QT: 402 QTc: 384 [place]: P: 63 ME: 180 QRS: 9 T: 59 INTERPRETIVE STATEMENTS: Sinus bradycardia Cannot rule out Anterior infarct, age undetermined Abnormal ECG Compared to ECG 12/25/2017 14:55:39 Sinus rhythm no longer present Myocardial infarct finding still present Electronically Signed On 12-18-18 18:23:01 CDT by Kenneth Melgar
[2018-12-19 01:55] VITALS: TEMP 97.2; O2SAT 98
[2018-12-19 02:00] VITALS: BP 150/60
== END 2018-12-18 17:34 | disposition home or self-care (01) ==
LOC: ER 13:24
DX: K29.70 Gastritis, unspecified, without bleeding (principal); K44.9 Diaphragmatic hernia without obstruction or gangrene; E03.9 Hypothyroidism, unspecified; J44.9 Chronic obstructive pulmonary disease, unspecified; Z88.1 Allergy status to other antibiotic agents; Z88.3 Allergy status to other anti-infective agents; Z88.5 Allergy status to narcotic agent; Z88.8 Allergy status to other drugs, medicaments and biological substances
CPT/HCPCS: 93005; 85025; 80048; 36415; 80076; 81003; 83690; 74177; Q9967

== ENCOUNTER 2019-02-14 18:34 | Emergency (ER) | payer OTHER ==
[2019-02-14] MEDS ORDERED: NA CHLORIDE 0.9% 1,000 ML ONE (19:52)
[2019-02-14 20:10] LABS: Absolute Lymphocytes (CBC) 1.5 K/uL (0.7-4.9); Basophils % 1.1 % (0-1.3); Eosinophils % 4.5 % (0-4.4); Hematocrit 32.1 % (36.0-45.0); Lymphocytes % 28.2 % (15.3-44.8); Monocytes % 9.8 % (3.3-12.3); RBC Red Blood Cell Count 3.72 M/uL (3.86-4.86)
[2019-02-14 20:30] LABS: BUN Blood Urea Nitrogen 24 mg/dL (7-18); Bicarbonate 27 mmol/L (21-32); CKMB Creatine Kinase MB < 1.0 ng/mL (0.3-3.6); Creatine Phosphokinase 49 U/L (26-192); Glucose Level 87 mg/dL (74-106); Potassium 4.3 mmol/L (3.5-5.1); Sodium Level 139 mmol/L (136-145); Troponin (Emerg Dept Use Only) 0.02 ng/mL (0.0-0.045)
[2019-02-14] MEDS ORDERED: DIAZEPAM 10 MG/2 ML INJ SYRINGE ONE (20:57)
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
[2019-02-14 22:45] VITALS: TEMP 98.4; O2SAT 97
[2019-02-14 22:47] VITALS: BP 173/66
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
== END 2019-02-14 22:40 | disposition home or self-care (01) ==
LOC: ER 18:34
DX: M79.10 Myalgia, unspecified site (principal); V43.52XA Car driver injured in collision with other type car in traffic accident, initial encounter; Y93.9 Activity, unspecified; Y92.9 Unspecified place or not applicable; Z88.6 Allergy status to analgesic agent; Z88.8 Allergy status to other drugs, medicaments and biological substances; Z91.09 Other allergy status, other than to drugs and biological substances
CPT/HCPCS: 96361; 85025; 80048; 36415; 86900; 86850; 82550; 86901; 84484; 82553; 70450; 72125; 71260; 74177; 96374; 99285; Q9967; J3360; J7030

== ENCOUNTER 2020-06-17 10:38 | Day surgery (SDC) | payer OTHER ==
[2020-06-16 12:57] LABS: Absolute Lymphocytes (CBC) 0.9 K/uL (0.7-4.9); Lymphocytes % 16.5 % (15.3-44.8); RBC Red Blood Cell Count 2.86 M/uL (3.86-4.86)
[2020-06-16 13:00] LABS: Protime INR 1.11
--- NOTE | 2020-06-16 18:04 | EKG ---
Test Date: 2020-06-16 Test Time: 12:11:03 Waterworks Supervisor: MARYSE MEASUREMENT RESULTS: Intervals: Rate: 72 NJ: 198 QRSD: 100 QT: 386 QTc: 422 [place]: P: 51 NJ: 198 QRS: 8 T: 80 INTERPRETIVE STATEMENTS: Sinus rhythm with premature supraventricular complexes Otherwise normal ECG Compared to ECG 12/18/2018 14:24:16 Atrial premature complex(es) now present Sinus bradycardia no longer present Myocardial infarct finding no longer present Electronically Signed On 06-16-20 18:02:32 DELINEATOR by Be Coy
[2020-06-17] MEDS ORDERED: HEPA 1000U/500MLS 2,000 UNIT/1,000 ML BAG IV ONE (11:03)
[2020-06-17] MEDS ORDERED: NA CHLORIDE 0.9% 500 ML ONE (11:23)
[2020-06-17] MEDS ORDERED: HEPARIN 10,000 UNIT/10 ML VIAL IV ONE (12:41)
[2020-06-17] MEDS ORDERED: MIDAZOLAM HCL 2 MG/2 ML INJ ONE (12:41)
[2020-06-17] MEDS ORDERED: VERAPAMIL HCL 10 MG/4 ML VIAL IV ONE (12:41)
[2020-06-17] MEDS ORDERED: HEPARIN 5000 UNIT/ML 1 ML VIAL ONE (12:41)
[2020-06-17] MEDS ORDERED: FENTANYL CITR 100 MCG/2 ML ONE (12:41)
[2020-06-17] MEDS ORDERED: ATROPINE SULF 1 MG/10 ML SYR IV ONE (12:42)
[2020-06-17] MEDS ORDERED: LIDOCAINE 1% 20 ML MDV ONE (12:43)
[2020-06-17] MEDS ORDERED: NA CHLORIDE 0.9% 100 ML IV ONE (12:57)
[2020-06-17 15:49] VITALS: O2SAT 99
--- NOTE | 2020-06-17 15:49 | OP ---
Date of Procedure: 06/17/2020 Surgeon: CHANDLER CRAMER Procedures Performed: 1.Selective coronary angiogram. 2.Right heart catheterization. Indications: 1.Unstable angina. 2.Significant shortness of breath and dyspnea on exertion. The access right radial artery 6-Japanese closed with TR band, right IJ 7-Japanese closed with manual pre ssure. Complications: None. Bleeding: Less than 5 mL. Description Of Procedure: After risks, benefits and alternatives were explained, she agreed to the p rocedure and signed informed consent. The patient was brought into the cardiac catheterization labor atory, prepped and draped in usual sterile fashion. We accessed the right radial artery using pediat madhav micropuncture kit and a 6-Japanese slender sheath and we accessed right IJ using a micropuncture ki t under ultrasound guidance and placed a 7-Japanese sheath. We used Versed and fentanyl in incremental doses to achieve adequate moderate sedation. Total sedation time was 35 minutes. Then, we took the [place] catheter 7-Japanese through the IJ access to the RA and recorded pressure waveform. Then ___ pressure waveforms and the adequate pressure waveform and took a pressure was recorded . Then, we removed the [place] catheter and then we proceeded with the coronary angiogram by taking a 5 -Japanese [place] catheter into the aortic root over a J-wire, engaged the left main coronary artery, the n the right coronary artery, took standard views and then removed the catheters, wires, and removed t he right radial sheath and placed TR band, and removed the right IJ sheath and placed manual pressure . Findings: 1.Left main is normal. 2.LAD is normal. 3.Left circumflex is normal. 4.RCA is normal. 5.RA pressure was 8, RV pressure was 51/1 with a mean of 13 and pulmonary arterial pressure was 43/1 1, mean of 29. Wedge pressure was 29 mmHg with a very large V-wave indicating severe MR. Impression: 1.Normal coronary arteries. 2.Mild pulmonary hypertension with elevated wedge pressure and large V-wave suggestive of significan t mitral regurgitation. Recommendation: Obtain echocardiogram and followup in the office within week to evaluate for the pre sence of mitral valve regurgitation. SR/MODL Voice ID: [id number] Report ID: [id number]
[2020-06-17 16:59] VITALS: BP 137/51; TEMP 97.4
== END 2020-06-17 17:18 | disposition home or self-care (01) ==
LOC: CCL 10:38
PROVIDERS: ATTEND Internal Medicine
DX: I25.110 Atherosclerotic heart disease of native coronary artery with unstable angina pectoris (principal); I13.0 Hypertensive heart and chronic kidney disease with heart failure and stage 1 through stage 4 chronic kidney disease, or unspecified chronic kidney disease; N18.30 Chronic kidney disease, stage 3 unspecified; I50.32 Chronic diastolic (congestive) heart failure; Z20.828 Contact with and (suspected) exposure to other viral communicable diseases; K21.9 Gastro-esophageal reflux disease without esophagitis; E03.9 Hypothyroidism, unspecified; J45.20 Mild intermittent asthma, uncomplicated; R06.02 Shortness of breath; I27.20 Pulmonary hypertension, unspecified
CPT/HCPCS: 36415; 85025; 85610; 85730; 93005; 93456; C1893; J1644; J2250; J3010; J7040; U0002

== ENCOUNTER 2020-12-23 23:01 | Inpatient (IN) | payer OTHER ==
--- OUTSIDE RECORDS SUMMARY | 2020-12-23 23:03 | XMS REPORT | Continuity of Care Document ---
:1940 Author Organization [facility] t Address [address] [place] [address] Care Team Providers Name Role Phone Asked, Pcp Primary Care Physician Unavailable Shanthi Attending Clinician Unavailable Dana CESPEDES Attending Clinician Luanne HOOD Attending Clinician Unavailable Gracie BUTCHER Attending Clinician Singer HUBER Attending Clinician Lokesh CESPEDES Attending Clinician Sarahi Hill Attending Clinician Shanae Key MD Attending Clinician Lokesh CESPEDES Admitting Clinician Shanae Key MD Admitting Clinician [phone] Payers Payer Name Policy Type Policy Effective Date Expiration Date Sour ce Number MEDICAREMEDICARE PART [id number] Jeff Zelaya AND 00:00:00 Buddhist [id number] 1986[place] [id number] [place] 00:00:00 Buddhist [id number] -PresentCommercial Problems Condition Condition Condition Status Onset Resolution Last Treating Co mments Source Name Details Category Date Date Treatment Clinician Date ESRD (end ESRD (end Disease Active Overview: [place] stage stage 5-19 [facility] renal renal 00:00: g of this st disease) disease) 00 note on on might be dialysis dialysis different from the original. Added automatic ally from request for surgery [id number] Allergies, Adverse Reactions, Alerts Allergy Allergy Status Severity Reaction(s) Onset Inactive Treating Comm ents Source Name Type Date Date Clinician Phenothi DA Active U 2020-1 [facility] azines 2-10 Clear 00:00: Jiang [facility] Thioxant DA Active U 2020-1 [facility] henes 2-10 Clear 00:00: Jiang [facility] prochlor DA Active U 2020-1 [facility] perazine 2-10 Clear 00:00: Jiagn [facility] baclofen DA Active U 2020-1 [facility] 2-10 Clear 00:00: Jiang [facility] hydralaz DA Active U 2020-1 [facility] ine 2-10 Clear 00:00: Jiang [facility] ondanset DA Active U 2020-1 [facility] ramona 2-10 Clear 00:00: [facility] vancomyc DA Active U 2020-1 [facility] in 2-10 Clear 00:00: Jiang [facility] cefepime DA Active U 2020-1 [facility] 2-10 Clear 00:00: Jiang [facility] iodine DA Active U 2009-0 [facility] 6-15 Clear 00:00: Jiang [facility] prochlor DA Active U 2009-0 [facility] perazine 6-15 Clear 00:00: Jiang [facility] ciproflo DA Active U 2009-0 [facility] xacin 6-15 Clear 00:00: [address] Not DA Active U 2009-0 [facility] Converte 6-15 Clear d 80. 00:00: Jiang [facility] Social History Social Habit Start Date Stop Date Quantity Comments Source Exposure to Not sure [place] Metho dist SARS-CoV-2 (event) Sex Ass[birth year] At [birth year] [place] Alphonso ethodist 00:00:00 00:00:00 Medications This patient has no known medications. Procedures Procedure Date / Time Performed Performing Clinician Sour e US VEIN MAPPING UPPER 2020-12-21 15:22:09 Nicanor De La Torre n Buddhist EXTREMITY BILATERAL Plan of Care Planned Activity Planned Date Details Comments Source Future Scheduled Test 2021-03-06 INFLUENZA VACCINE [facility] Buddhist 00:00:00 [code = INFLUENZA VACCINE] Future Scheduled Test 1988 SHINGLES VACCINES [facility] Buddhist 00:00:00 (#1) [code = SHINGLES VACCINES (#1)] Future Scheduled Test 1950 COVID-19 VACCINE (1) [place] Buddhist 00:00:00 [code = COVID-19 VACCINE (1)] Future Scheduled Test 1948 DIABETES: RETINAL EYE [facility] 00:00:00 EXAM [code = DIABETES: RETINAL EYE EXAM] Future Scheduled Test 1948 DIABETIC FOOT EXAM [place] Buddhist 00:00:00 [code = DIABETIC FOOT EXAM] Future Scheduled Test 1944 65+ PNEUMOCOCCAL Ho [facility] 00:00:00 VACCINE (1 of 4 - PCV13) [code = 65+ PNEUMOCOCCAL VACCINE (1 of 4 - PCV13)] Future Appointment 2021-01-06 [place], [id number] Ashley Manley 09:55:00 [facility]; [address] [facility], [place] [id number] Future Appointment 2021-01-06 [place], [id number] Ashley Manley 09:55:00 [facility]; [place] [id number], [place] [id number] Encounters Start End Encounter Admission Attending Care Care Encounter Source Date/Time Date/Time Type Type Clinicians Facility Department ID 2020-12-21 2020-12-21 Outpatient NICANOR DE LA TORRE [facility] [id number] [place] 00:00:00 00:00:[address] 2020-09-10 2020-09-10 Transition Edenilson Bowman [id number] 00:00:00 00:00:00 of Care Padmini Gifford [id number] [place] [id number] [facility] 2020-08-26 2020-09-09 [facility] Papo Hernandez [facility] [id number] 15:48:00 18:10:00 Encounter Foster Campa [id number] [place] [id number] [place] [id number] 2020-08-24 2020-08-24 Transition Edenilson Bowman [id number] 00:00:00 00:00:00 of Care Padmini Gifford [id number] [place] [id number] 2020-08-10 2020-08-21 [facility] Arleen Sheets [facility] [id number] 17:07:00 17:50:00 Encounter IsabelaTatianna arreolalewis Jolly Loraine on [id number] [place] [id number] [place] [id number] Results Test Description Test Time Test Comments Results Result [facility] e Comments Us vein mapping 2020-12-04 Red Vigil upper extremity 8 Radiology Results Pr thodist 15:37:15 - 12/21/2020 3:40 PM CDT EXAM: Bilateral upper extremity vein mappingHISTORY: End-stage renal diseaseTECHNIQUE: Bilateral upper extremity venous duplex ultrasound with color flow and Doppler imaging obtained for vein mapping.IMPRESSION:1.T here is no deep venous or superficial vein thrombus in the upper extremities. The right and left internal jugular, subclavian, axillary, brachial, radial, ulnar, basilic, and cephalic veins are patent with no visible thrombus.2.Bilateral upper extremity vein mapping was performed and was the following:RIGHT ARM--Size(mm)--DEPTH FROM SKIN(mm)Above the antecubital fossa:Brachial at antecubital: 3.7 mm -- 11.2 mmMedian antecubital: not visualizedCephalic antecubital: not visualizedCephalic mid arm: not visualizedCephalic proximal: not visualizedBasilic antecubital: 2.6 mm -- 13.0 mmBasilic mid arm: 2.9 mm -- 13.0 mmBasilic proximal: 3.6 mm -- 19.7 mmBelow antecubital fossa:Cephalic wrist: not visualizedCephalic mid forearm: not visualizedBasilic wrist: 1.1 mm -- 3.3 mmBasilic mid forearm: 1.4 mm -- 6.7 mmArteries--Size(mm):R adial artery: 2.1 mmUlnar artery: 1.8 mmBrachial artery: 4.9 mmLEFT ARM--Size(mm)--DEPTH FROM SKIN(mm)Above the antecubital fossa:Brachial at antecubital: 2.3 mm -- 9.8 mmMedian antecubital: 2.6 mm -- 3.0 mmCephalic antecubital: 2.1 mm -- 8.2 mmCephalic mid arm: 2.2 mm -- 9.6 mmCephalic proximal: 2.8 mm -- 10.2 mmBasilic antecubital: 2.7 mm -- 10.1 mmBasilic mid arm: 3.8 mm -- 15.1 mmBasilic proximal: 3.9 mm -- 15.9 mmBelow antecubital fossa:Cephalic wrist: 1.2 mm -- 1.9 mmCephalic mid forearm: 1.8 mm -- 8.1 mmBasilic wrist: not visualizedBasilic mid forearm: not visualizedArteries--Si ze(mm):Radial artery: 1.9 mmUlnar artery: 2.3 mmBrachial artery: 5.0 [id number] Novel Coronavirus 2019 Inhouse 2020-07-16 05:22:00 Test Item Value Reference Range Interpretation Comme nts Novel Coronavirus 2018 Negative Negative Posit demarco results are indicative of the Inhouse (test code = presenc e [id number] RNA, clinical COVNONPUI) correlation wit h patient historyand other diagnosti c information is necessary to de terminepatient infection status. Positiv e results do not rule outbacterial in fection or co-infection with other viru ses. Negative results do not preclude SA RS-CoV-2 infection andshould not b e used as the sole basis for patient man agementdecisions. Negative result s must be combined with otherclinical o bservations, patient history, and ep idemiologicalinformation. Detection of SA RS-CoV-2 RNA may be affected bysamp le collection methods, storage conditi ons, and/or stageof infection. Maegan l RNA mutations, vaccinations, a ntiviraltherapeutics, antibiotics, ch emotherapeutic orimmunosuppres catia drugs have not been evaluated for e ffectson detection. Results are for the identification of SARS-CoV-2 RNA usingthe Continuum M2000 System under th e FDA Emergency UseAuthorizatio n. The testing is performed by ceferino rsonneltrained in the procedures for the Arce M2000 moleculardiagno stic SARS-CoV-2 assay in vitro. PROTHROMBIN [id number] 15:53:00 Test Item Value Reference Range Interpretation Comments PROTHROMBIN TIME 13.1 SECONDS 9.3-12.9 H PATIENT (test code = PTP) INTERNATIONAL NORMAL 1.2 0.8-1.2 N TARGET RATIO (test code = INR BY IN DICATION INR) Indication INR1. Prophyl axis of venous thrombos is 2.0 - 3. 0 (orthopedic lachelle kurt), Prophylaxis of venous thrombos is (other than hig h-risk surgery), Sophia tment of Deep Vein Thrombosis/Pulm onary Embolism, Preve ntion of systemic emb olism - Tissue heart va lves, Acute Myocardia l Infarction (to prevent systemic embo lism), Valvular heart disease, Atri al Fibrillation, Bileaflet mecha nical valve in aortic position.2. Mec hanical prosthetic valv es (high risk), 2.5 - 3.5 Presence of Lupus Anticoagu lant or Antiphospholi pid Antibodies, Pre vention of systemic e mbolism - Acute Myocard ial Infarction (t o prevent recurre nt infarct). PROTHROMBIN [id number] 15:48:00 Test Item Value Reference Range Interpretation Comments PROTHROMBIN TIME SECONDS 9.3-12.9 PATIENT (test code = PTP) INTERNATIONAL NORMAL 1.2 0.8-1.2 N TARGET RATIO (test code = INR BY IN DICATION INR) Indication INR1. Prophylax is of venous thrombos is 2.0 - 3.0 (orthopedic lachelle kurt), Prophylaxis of venous thrombosis (oth er than high-risk lachelle kurt), Treatment of De ep Vein Thrombosis/Pulm onary Embolism, Preve ntion of systemic emb olism - Tissue heart va lves, Acute Myocardia l Infarction (to prevent systemic emboli sm), Valvular heart disease, Atrial Fibrill ation, Bileaflet mecha nical valve in aortic position.2. Mec hanical prosthetic valv es (high risk), 2.5 - 3.5 Presence of Lup us Anticoagulant o r Antiphospholipi d Antibodies, Pre vention of systemic e mbolism - Acute Myocardia l Infarction (t o prevent recurrent infar ct). BASIC METABOLIC [id number] 15:45:00 Test Item Value Reference Range Interpretation Comments SODIUM (test code = NA) 136 mEq/L 134-147 N POTASSIUM (test code = 5.2 mEq/L 3.4-5.0 H K) CHLORIDE (test code = 106 mEq/L 100-108 N CL) CARBON DIOXIDE (test 24 mEq/l 21-33 N code = CO2) ANION GAP (test code = 11 0-20 N GAP) GLUCOSE (test code = 92 mg/dL 70-110 N GLU) BLOOD UREA NITROGEN 27 mg/dL 7-18 H (test code = BUN) GLOMERULAR FILTRATION 30.9 70-80 L Units of measure = RATE (test code = GFR) ml/mi n/1.73 m2 CREATININE (test code = 1.6 mg/dL 0.6-1.3 H CREAT) CALCIUM (test code = 9.1 mg/dL 8.0-10.5 N CA) CBC W/AUTO [id number] 15:36:00 Test Item Value Reference Range Interpretation Comments WHITE BLOOD CELL (test code = 5.3 x10 3/uL 4.5-11.0 N WBC) RED BLOOD CELL (test code = 2.97 x10 6/uL 3.54-5.02 L RBC) HEMOGLOBIN (test code = HGB) 8.6 g/dL 11.0-15.0 L HEMATOCRIT (test code = HCT) 28.3 % 33.0-45.0 L MEAN CELL VOLUME (test code = 95.3 fL 81.0-99.0 N MCV) MEAN CELL HGB (test code = MCH) 29.0 pg 27.0-33.0 N MEAN CELL HGB CONCETRATION 30.4 g/dL 33.0-37.0 L (test code = MCHC) RED CELL DISTRIBUTION WIDTH CV 14.4 % 11.5-14.5 N (test code = RDW) RED CELL DISTRIBUTION WIDTH SD 50.6 fL 37.0-54.0 N (test code = RDW-SD) PLATELET COUNT (test code = 143 x10 3/uL 150-400 L PLT) MEAN PLATELET VOLUME (test code 11.1 fL 7.0-9.0 H = MPV) NEUTROPHIL % (test code = NT%) 64.8 % 56.0-77.0 N IMMATURE GRANULOCYTE % (test 0.2 % 0.0-2.0 N code = IG%) LYMPHOCYTE % (test code = LY%) 18.8 % 14.0-32.0 N MONOCYTE % (test code = MO%) 9.5 % 4.8-9.0 H EOSINOPHIL % (test code = EO%) 5.7 % 0.3-3.7 H BASOPHIL % (test code = BA%) 1.0 % 0.0-2.0 N NUCLEATED RBC % (test code = 0.0 % 0-0 N NRBC%) NEUTROPHIL # (test code = NT#) 3.41 x10 3/uL 2.0-7.6 N IMMATURE GRANULOCYTE # (test 0.01 x10 3/uL 0.00-0.03 N code = IG#) LYMPHOCYTE # (test code = LY#) 0.99 x10 3/uL 1.0-3.8 L MONOCYTE # (test code = MO#) 0.50 x10 3/uL 0.1-0.8 N EOSINOPHIL # (test code = EO#) 0.30 x10 3/uL 0.0-0.2 H BASOPHIL # (test code = BA#) 0.05 x10 3/uL 0.0-0.2 N NUCLEATED RBC # (test code = 0.00 x10 3/uL 0.0-0.1 N NRBC#) MANUAL DIFF REQUIRED (test code NO = MDIFF)
[2020-12-24] MEDS ORDERED: Levofloxacin500mg IV 500 MG/100 ML BAG IV ONE (00:54)
[2020-12-24] MEDS ORDERED: CLINDAMYCIN 900MG/D5W 900 MG/50 ML IVPB IV ONE (00:54)
[2020-12-24 01:45] LABS: Absolute Lymphocytes (CBC) 1.2 K/uL (0.7-4.9); Hematocrit 34.8 % (36.0-45.0); Lymphocytes % 21.3 % (15.3-44.8); MPV 10.2 fL (7.6-11.3)
[2020-12-24 01:49] LABS: Protime INR 1.12
[2020-12-24 02:00] LABS: ALT/SGPT 17 U/L (12-78); AST/SGOT 20 U/L (15-37); Albumin 3.2 g/dL (3.4-5.0); Alkaline Phosphatase 63 U/L (45-117); BUN Blood Urea Nitrogen 18 mg/dL (7-18); Bicarbonate 22 mmol/L (21-32); Bilirubin Direct 0.1 mg/dL (0-0.2); Bilirubin Total 0.4 mg/dL (0.2-1.0); Glucose Level 99 mg/dL (74-106); Magnesium 1.7 mg/dL (1.8-2.4); NT PRO-BNP 6126 pg/mL (<450); Potassium 3.9 mmol/L (3.5-5.1); Protein, Total 6.7 g/dL (6.4-8.2); Sodium Level 142 mmol/L (136-145); Troponin (Emerg Dept Use Only) < 0.02 ng/mL (0.0-0.045)
--- NOTE | 2020-12-24 02:07 | ER ---
Nurse's Notes [facility] Name: Maura Harris Age: 80 yrs Sex: Female : 1940 Arrival Date: 12/23/2020 Time: 23:06 Bed 8 Private MD: Diagnosis: Sialoadenitis;Cellulitis and acute lymphangitis of neck;End stage renal disease-on HD M,W,F;Obesity, unspecified;Hypomagnesemia Presentation: 12/23 23:11 Chief complaint: Patient states: my left ear started hurting yesterday and tonight I iw had swelling in my left throat and behind my left ear. I have ear infections quite a bit. Coronavirus screen: Client denies travel out of the [place] in the last 14 days. Ebola Screen: Patient negative for fever greater than or equal to 101.5 degrees Fahrenheit, and additional compatible Ebola Virus Disease symptoms Patient denies exposure to infectious person. Patient denies travel to an Ebola-affected area in the 21 days before illness onset. Initial Sepsis Screen: Does the patient meet any 2 criteria? No. Patient's initial sepsis screen is negative. Does the patient have a suspected source of infection? No. Patient's initial sepsis screen is negative. Risk Assessment: Do you want to hurt yourself or someone else? Patient reports no desire to harm self or others. Onset of symptoms was December 23, 2020. 23:11 Method Of Arrival: Wheelchair iw 23:11 Acuity: ELICIA 3 iw Historical: - Allergies: 23:16 BACLOFEN; iw 23:16 cefepime; iw 23:16 Compazine; iw 23:16 Demerol; iw 23:16 Vancomycin; iw 23:16 prochlorperazine Edisylate; iw 23:16 Ondansetron HCl; iw 23:16 Macrobid; iw 23:16 Iodine; iw 23:16 Ibuprofen; iw - PMHx: 23:16 COPD; GERD; Hypertension; Hypothyroidism; lymphedema; retained cholelithiasis; iw - PSHx: 23:16 Cholecystectomy; back surgery; hip surgery; Hysterectomy; Tonsillectomy; iw - Immunization history:: Adult Immunizations up to date. - Social history:: Smoking status: Patient denies any tobacco usage or history of. - Family history:: not pertinent. Screenin/21 00:05 Abuse screen: Denies threats or abuse. Denies injuries from another. Nutritional rr5 screening: No deficits noted. Tuberculosis screening: No symptoms or risk factors identified. Fall Risk Ambulatory Aid- Crutches/Cane/Walker (15 pts). Gait- Normal/Bed Rest/Wheelchair (0 pts) Total Mcallister Fall Scale indicates No Risk (0-24 pts). Assessment: 00:04 General: Appears in no apparent distress. uncomfortable, Behavior is calm, cooperative, rr5 appropriate for age. Pain: Complains of pain in left ear. Neuro: Level of Consciousness is awake, alert, obeys commands, Oriented to person, place, time. Cardiovascular: Capillary refill < 3 seconds Patient's skin is warm and dry. Respiratory: Airway is patent Respiratory effort is even, unlabored, Respiratory pattern is regular, symmetrical. EENT: Tympanic membrane reddened on left ear bulging on left ear Reports pain in left ear. Derm: Skin is fragile, is thin, Skin temperature is warm. 07:17 Reassessment: Report called to receiving nurse on fourth floor. ea Vital Signs: 12/23 23:16 BP 158 / 74; Pulse 59; Resp 17; Temp 98.4; Pulse Ox 99% on R/A; Weight 93.44 kg; Height iw 5 ft. 5 in. (165.10 cm); Pain 8/10; 12/24 02:43 BP 144 / 79; Pulse 64; Resp 20; Temp 98.6; Pulse Ox 97% on R/A; ak2 12/23 23:16 Body Mass Index 34.28 (93.44 kg, 165.10 cm) iw ED Course: 12/23 23:06 Patient arrived in ED. bp1 23:12 Triage completed. iw 23:17 Arm band placed on left wrist. iw 23:55 Gregory Godwin is Primary Nurse. ak2 12/24 00:06 Patient has correct armband on for positive identification. Bed in low position. Call rr5 light in reach. 00:16 Salvador June MD is Attending Physician. cathy 00:46 XRAY Chest (1 view) In Process Unspecified. EDMS 01:13 CT Head Brain wo Cont In Process Unspecified. EDMS 01:14 Soft Tissue Neck Wo Contr In Process Unspecified. EDMS 02:01 Madonna López MD is Hospitalizing Provider. cathy 07:15 No provider procedures requiring assistance completed. Patient admitted, IV remains in ea place. Administered Medications: 00:35 Drug: Clindamycin 900 mg Route: IVPB; Infused Over: 30 mins; Site: right antecubital; ak2 01:35 Follow up: Response: No adverse reaction; IV Status: Completed infusion; IV Intake: [id number] 02:04 Drug: levofloxacin 500 mg Volume: 100 ml; Route: IVPB; Infused Over: 60 mins; Site: ak2 left antecubital; 03:00 Follow up: Response: No adverse reaction; IV Status: Completed infusion; IV Intake: rr5 100ml 03:03 Drug: Magnesium Sulfate 1 grams Route: IVPB; Infused Over: 1 hrs; Site: left ak2 antecubital; 04:00 Follow up: Response: No adverse reaction; IV Status: Completed infusion; IV Intake: rr5 100ml Intake: 01:35 IV: 50ml; Total: 50ml. rr5 03:00 IV: 100ml; Total: 150ml. rr5 04:00 IV: 100ml; Total: 250ml. rr5 Outcome: 02:06 Decision to Hospitalize by Provider. cathy 07:15 Admitted to Med/surg accompanied by tech, room 413, with chart, Report called to ea Receiving nurse on fourth floor 07:15 Condition: stable 07:15 Instructed on the need for admit, Demonstrated understanding of instructions. 07:57 Patient left the ED. em Signatures: Dispatcher [employer] EDOK Salvador June MD MD cha Munoz, Edgar, RN Yamel Owens RN RN iw Antunez, Elena, RN RN ea Roque, Raymond, RN RN rr5 Janae Deshpande Anthony [facility]
--- NOTE | 2020-12-24 02:07 | EDPHYS ---
Physician Documentation [facility] Name: Maura Harris Age: 80 yrs Sex: Female : 1940 Arrival Date: 12/23/2020 Time: 23:06 Bed 8 Private MD: Salvador Saha HPI: 12/24 00:31 This 80 yrs old Female presents to ER via Wheelchair with complaints of Ear cathy Infection. 00:31 The patient presents with pain, swelling, tenderness. The complaints affect the left cathy ear, chin, left jaw, left cheek and left mandible. Onset: The symptoms/episode began/occurred 3 day(s) ago. Modifying factors: The symptoms are alleviated by nothing, the symptoms are aggravated by nothing. The patient or guardian complains of pain, swelling, tenderness. The symptoms are located on the neck. Context: The problem was sustained at an unknown location. Associated signs and symptoms: Pertinent positives: nausea. Modifying factors: The symptoms are alleviated by nothing. the symptoms are aggravated by nothing. Historical: - Allergies: 12/23 23:16 BACLOFEN; iw 23:16 cefepime; iw 23:16 Compazine; iw 23:16 Demerol; iw 23:16 Vancomycin; iw 23:16 prochlorperazine Edisylate; iw 23:16 Ondansetron HCl; iw 23:16 Macrobid; iw 23:16 Iodine; iw 23:16 Ibuprofen; iw - PMHx: 23:16 COPD; GERD; Hypertension; Hypothyroidism; lymphedema; retained cholelithiasis; iw - PSHx: 23:16 Cholecystectomy; back surgery; hip surgery; Hysterectomy; Tonsillectomy; iw - Immunization history:: Adult Immunizations up to date. - Social history:: Smoking status: Patient denies any tobacco usage or history of. - Family history:: not pertinent. ROS: 12/24 00:31 Constitutional: Negative for fever, chills, and weight loss, Eyes: Negative for injury, cathy pain, redness, and discharge, Cardiovascular: Negative for chest pain, palpitations, and edema, Respiratory: Negative for shortness of breath, cough, wheezing, and pleuritic chest pain, Abdomen/GI: Negative for abdominal pain, nausea, vomiting, diarrhea, and constipation, Back: Negative for injury and pain, : Negative for injury, bleeding, discharge, and swelling, MS/Extremity: Negative for injury and deformity, Skin: Negative for injury, rash, and discoloration, Neuro: Negative for headache, weakness, numbness, tingling, and seizure. ENT: Positive for ear pain. Neck: Positive for pain at rest, of the neck and left jaw and chin. Exam: 00:31 Constitutional: This is a well developed, well nourished patient who is awake, alert, cathy and in no acute distress. Eyes: Pupils equal round and reactive to light, extra-ocular motions intact. Lids and lashes normal. Conjunctiva and sclera are non-icteric and not injected. Cornea within normal limits. Periorbital areas with no swelling, redness, or edema. Neck: Trachea midline, no thyromegaly or masses palpated, and no cervical lymphadenopathy. Supple, full range of motion without nuchal rigidity, or vertebral point tenderness. No Meningismus. Chest/axilla: Normal chest wall appearance and motion. Nontender with no deformity. No lesions are appreciated. Cardiovascular: Regular rate and rhythm with a normal S1 and S2. No gallops, murmurs, or rubs. Normal PMI, no JVD. No pulse deficits. Respiratory: Lungs have equal breath sounds bilaterally, clear to auscultation and percussion. No rales, rhonchi or wheezes noted. No increased work of breathing, no retractions or nasal flaring. Abdomen/GI: Soft, non-tender, with normal bowel sounds. No distension or tympany. No guarding or rebound. No evidence of tenderness throughout. Back: No spinal tenderness. No costovertebral tenderness. Full range of motion. Female : Normal external genitalia. Skin: Warm, dry with normal turgor. Normal color with no rashes, no lesions, and no evidence of cellulitis. 00:31 Head/face: Noted is swelling, tenderness, that is mild, of the chin and left jaw. Vital Signs: 12/23 23:16 BP 158 / 74; Pulse 59; Resp 17; Temp 98.4; Pulse Ox 99% on R/A; Weight 93.44 kg; Height iw 5 ft. 5 in. (165.10 cm); Pain 8/10; 12/24 02:43 BP 144 / 79; Pulse 64; Resp 20; Temp 98.6; Pulse Ox 97% on R/A; ak2 12/23 23:16 Body Mass Index 34.28 (93.44 kg, 165.10 cm) iw MDM: 00:16 Patient medically screened. [facility] 00:34 Differential diagnosis: otitis media, otitis externa, acute otalgia. Data reviewed: [facility] vital signs, nurses notes, lab test result(s), EKG, radiologic studies, CT scan, plain films. Data interpreted: patient monitor: rate is 59 beats/min, rhythm is regular, Pulse oximetry: on room air is 99 %. Test interpretation: by ED physician or midlevel provider: ECG, plain radiologic studies. Counseling: I had a detailed discussion with the patient and/or guardian regarding: the historical points, exam findings, and any diagnostic results supporting the discharge/admit diagnosis, lab results, radiology results, the need for further work-up and treatment in the hospital. 12/24 00:31 Order name: Basic Metabolic Panel; Complete Time: 02:39 [facility] 12/24 00:31 Order name: CBC with Diff; Complete Time: 01:59 [facility] 12/24 00:31 Order name: LFT's; Complete Time: 02:39 [facility] 12/24 00:31 Order name: Magnesium; Complete Time: 02:39 [facility] 12/24 00:31 Order name: NT PRO-BNP; Complete Time: 02:39 [facility] 12/24 00:31 Order name: PT-INR; Complete Time: 01:59 [facility] 12/24 00:31 Order name: Troponin (emerg Dept Use Only); Complete Time: 02:39 [facility] 12/24 00:31 Order name: Lactate; Complete Time: 02:39 [facility] 12/24 00:57 Order name: COVID-19 : Document "Date of Symptom Onset" if Symptomatic. rr5 12/24 02:12 Order name: SARS-COV-2 RT PCR; Complete Time: 02:39 [facility] 12/24 06:39 Order name: Comprehensive Metabolic Panel [facility] 12/24 06:39 Order name: T4 Free [facility] 12/24 06:39 Order name: Thyroid Stimulating Hormone [facility] 12/24 00:31 Order name: XRAY Chest (1 view) [facility] 12/24 00:31 Order name: EKG; Complete Time: 00:32 [facility] 12/24 00:31 Order name: Cardiac monitoring; Complete Time: 06:23 [facility] 12/24 00:31 Order name: EKG - Nurse/Tech; Complete Time: 06: [facility] 12/24 00:31 Order name: IV Saline Lock; Complete Time: 06: [facility] 12/24 00:31 Order name: Labs collected and sent; Complete Time: 06: [facility] 12/24 00:31 Order name: O2 Per Protocol; Complete Time: 06: [facility] 12/24 00:31 Order name: O2 Sat Monitoring; Complete Time: 06: [facility] 12/24 00:31 Order name: CT Head Brain wo Cont [facility] 12/24 00:40 Order name: Soft Tissue Neck Wo Contr [facility]MI 12/24 04:17 Order name: CONS Physician Consult EDMS 12/24 04:17 Order name: CONS Physician Consult EDMI Administered Medications: 00:35 Drug: Clindamycin 900 mg Route: IVPB; Infused Over: 30 mins; Site: right antecubital; [facility] 01:35 Follow up: Response: No adverse reaction; IV Status: Completed infusion; IV Intake: [id number] 02:04 Drug: levofloxacin 500 mg Volume: 100 ml; Route: IVPB; Infused Over: 60 mins; Site: ak2 left antecubital; 03:00 Follow up: Response: No adverse reaction; IV Status: Completed infusion; IV Intake: rr5 100ml 03:03 Drug: Magnesium Sulfate 1 grams Route: IVPB; Infused Over: 1 hrs; Site: left ak2 antecubital; 04:00 Follow up: Response: No adverse reaction; IV Status: Completed infusion; IV Intake: rr5 100ml Disposition: 12/24/20 02:06 Hospitalization ordered by Madonna López for Inpatient Admission. Preliminary diagnosis are Sialoadenitis, Cellulitis and acute lymphangitis of neck, End stage renal disease - on HD M,W,F, Obesity, unspecified, Hypomagnesemia. - Bed requested for Telemetry/MedSurg (Inpatient). - Status is Inpatient Admission. em - Condition is Stable. - Problem is new. - Symptoms have improved. Signatures: Dispatcher [employer] EDMS Salvador June MD MD cha Munoz, Edgar RN RN em Yamel Escobedo RN RN Laurel Villalta RN RN 1 Gregory Godwin [facility] Daniel Spears RN rr5 Corrections: (The following items were deleted from the chart) 00:40 00:33 Soft Tissue Neck W/Contr+CT.RAD.BRZ ordered. EDMI EDMS 01:24 00:58 CORONAVIRUS ordered. EDMI EDMS 02:40 02:06 Hospitalization Ordered by Madonna López MD for Inpatient Admission. Preliminary cathy diagnosis is Sialoadenitis; Cellulitis and acute lymphangitis of neck; End stage renal disease - on HD M,W,F; Obesity, unspecified. Bed requested for Telemetry/MedSurg (Inpatient). Status is Inpatient Admission. Condition is Stable. Problem is new. Symptoms have improved. [facility] 04:27 02:40 12/24/2020 02:06 Hospitalization Ordered by Madonna López MD for Inpatient tl1 Admission. Preliminary diagnosis is Sialoadenitis; Cellulitis and acute lymphangitis of neck; End stage renal disease - on HD M,W,F; Obesity, unspecified; Hypomagnesemia. Bed requested for Telemetry/MedSurg (Inpatient). Status is Inpatient Admission. Condition is Stable. Problem is new. Symptoms have improved. [facility] 06:34 04:27 12/24/2020 02:06 Hospitalization Ordered by Madonna López MD for Inpatient tl1 Admission. Preliminary diagnosis is Sialoadenitis; Cellulitis and acute lymphangitis of neck; End stage renal disease - on HD M,W,F; Obesity, unspecified; Hypomagnesemia. Bed requested for RUST ER HOLD. Status is Inpatient Admission. Condition is Stable. Problem is new. Symptoms have improved. tl1 07:57 06:34 12/24/2020 02:06 Hospitalization Ordered by Madonna López MD for Inpatient em Admission. Preliminary diagnosis is Sialoadenitis; Cellulitis and acute lymphangitis of neck; End stage renal disease - on HD M,W,F; Obesity, unspecified; Hypomagnesemia. Bed requested for Telemetry/MedSurg (Inpatient). Status is Inpatient Admission. Condition is Stable. Problem is new. Symptoms have improved. tl1
[2020-12-24] MEDS ORDERED: MAGNESIUM SULFATE 1 gm IVPB 1 GM/100 ML BAG IV ONE (03:10)
[2020-12-24] MEDS ORDERED: ONDANSETRON 4 MG/2 ML VIAL IV PRN (04:43)
[2020-12-24] MEDS ORDERED: ACETAMINOPHEN 500 MG TAB PO PRN (04:43)
--- NOTE | 2020-12-24 04:49 | P.HP ---
Certification for Inpatient Patient admitted to: Observation With expected LOS: <2 Midnights Patient will require the following post-hospital care: None Practitioner: I am a practitioner with admitting privileges, knowledge of patient current condition, hospital course, and medical plan of care. Services: Services provided to patient in accordance with Admission requirements found in Title 42 Section 412.3 of the Code of Federal Regulations <Keegan Wilde Ebenezer - Last Filed: 12/24/20 04:43> Patient History Date of Service: 12/24/20 Reason for admission: sialodenitis, ESRD History of Present Illness: Ms. Harris is a 80 yo F with COPD, GERD, HTN, hypothyroidism, and CHF here today for left ear and neck pain beginning a few days ago and worsening last night. She denies night sweats, chills, nausea and vomiting. She reports dry mouth and pain everywhere. Says she took Benadryl with no relief of symptoms. She has recurrent ear aches after a procedure she had [address] of the neck consistent with sialodenitis. - Past Medical/Surgical History Diabetic: No -: COPD -: HTN -: GERD -: Hypothyroidism -: CHF, diastolic dysfunction -: Chronic kidney disease -: Right atrophic kidney -: Lymphedema -: cholecystectomy -: appendectomy -: hysterectomy -: tonsillectomy -: L hip sx -: x2 abdominal hernia repairs -: right arm sx -: right ankle sx Psychosocial/ Personal History: The patient is . She is currently at a skilled facility - Family History Father Notes: brain aneurysm Mother Notes: aortic aneurysm Sister -: Heart disease, Lung disease Notes: COPD, Heart problems, gallstones Brother -: Lung disease Notes: asthma - Social History Smoking Status: Never smoker Alcohol use: No CD- Drugs: No Caffeine use: Yes Place of Residence: Home <Keegan Wilde - Last Filed: 12/24/20 04:43> Date of Service: 12/24/20 <Madonna López - Last Filed: 12/26/20 02:48> Allergies baclofen Allergy (Intermediate, Verified 11/26/17 20:35) Shortness of breath prochlorperazine [From Compazine] Allergy (Intermediate, Verified 06/16/20 12:59) "out of it" cefepime Allergy (Mild, Verified 11/26/17 20:35) Rash ondansetron HCl [From Zofran] Allergy (Mild, Verified 11/26/17 20:35) Rash vancomycin Allergy (Mild, Verified 11/26/17 20:35) Rash nitrofurantoin [From Macrobid] Allergy (Verified 11/26/17 20:35) Unknown Home Medications: Levothyroxine [Synthroid*] 112 mcg PO [id number] #30 tab 11/17/17 Oxybutynin Chloride 5 mg PO TID #60 tablet 11/17/17 Sertraline [Zoloft*] 100 mg PO DAILY #30 tab 11/17/17 Hydralazine HCl [Apresoline] 1 tab PO BID 12/26/17 Multivitamin/Iron/Folic Acid [Multi-Day Plus Iron Tablet] 1 tab PO DAILY 12/26/17 Tramadol HCl/Acetaminophen [Ultracet Tablet] 1 tab PO DAILY 12/26/17 Acetaminophen [Tylenol Extra Strength] 500 mg PO Q6H PRN 12/24/20 Atenolol [Tenormin] 25 mg PO BID 12/24/20 Cholecalciferol (Vitamin D3) [Vitamin D 5,000 IU Cap*] 1,000 unit PO DAILY 12/24/20 Doxazosin Mesylate 4 mg PO BID 12/24/20 Furosemide [Lasix*] 40 mg PO DAILY 12/24/20 Hydroxychloroquine [Plaquenil*] 400 mg PO DAILY 12/24/20 Isosorbide Mononitrate [Isosorbide Mononitrate ER] 60 mg PO DAILY 12/24/20 Losartan Potassium [Cozaar*] 50 mg PO BID 12/24/20 Mecobalamin [B12 Active] 1,000 mcg PO DAILY 12/24/20 Metoclopramide [Reglan*] 5 mg PO QID PRN 12/24/20 Pantoprazole [Protonix Tab*] 40 mg PO BID 12/24/20 Sodium Chloride Tab [Sodium Chloride*] 2 tab PO BID 12/24/20 hydrOXYzine pamoate [Hydroxyzine Pamoate] 1 tab PO BID PRN 12/24/20 Melatonin 5 mg PO BEDTIME PRN PRN #10 tablet 12/25/20 Nepro Shake [Nepro*] 237 ml PO TID #60 can 12/25/20 Pantoprazole [Protonix Tab*] 40 mg PO DAILY #30 tab 12/25/20 clindamycin HCL [Clindamycin HCl] 300 mg PO Q8H #21 capsule 12/25/20 predniSONE [Deltasone] 20 mg PO BID #11 tab 12/25/20 Review of Systems General: Unremarkable Eyes: Unremarkable ENT: Ear Pain, Throat Pain, Throat Swelling, As per HPI Respiratory: Unremarkable Cardiovascular: Unremarkable Gastrointestinal: Unremarkable Genitourinary: Unremarkable Musculoskeletal: Unremarkable Integumentary: Unremarkable Neurological: Unremarkable Lymphatics: Unremarkable <Keegan Wilde S - Last Filed: 12/24/20 04:43> Physical Examination - Physical Exam General: Alert, In no apparent distress, Oriented x3, Cooperative HEENT: Atraumatic, Normocephalic, PERRLA, Mucous membr. moist/pink, EOMI, Sclerae nonicteric Neck: Supple, 2+ carotid pulse no bruit, JVD not distended, No Thyromegaly Respiratory: Clear to auscultation bilaterally, Normal air movement Cardiovascular: No edema, Normal pulses, Regular rate/rhythm, Normal S1 S2, No gallops, No rubs, No murmurs Capillary refill: <2 Seconds Gastrointestinal: Normal bowel sounds, Soft and benign, Non-distended, No ascites, No tenderness, No masses, No rebound, No guarding Musculoskeletal: No clubbing, No swelling, No contractures, No erythema, No tenderness, No warmth Integumentary: No rashes, No breakdown, No significant lesion, No cyanosis, Tenderness/swelling, Erythema, Warmth Neurological: Normal speech, Normal strength at 5/5 x4 extr, Normal tone, Sensation intact, Cranial nerves 3-12 intact, Normal affect Lymphatics: No axilla or inguinal lymphadenopathy - Studies Laboratory Data (last 24 hrs) 12/24/20 01:27: PT 12.9 H, INR 1.12 12/24/20 01:27: WBC 5.50, Hgb 11.2 L, Hct 34.8 L, Plt Count 124 L 12/24/20 01:27: Sodium 142, Potassium 3.9, BUN 18, Creatinine 2.34 H, Glucose 99, Magnesium 1.7 L, Total Bilirubin 0.4, AST 20, ALT 17, Alkaline Phosphatase 63 <Keegan Wilde - Last Filed: 12/24/20 04:43> Assessment and Plan - Problems (Diagnosis) (1) Sialadenitis Current Visit: Yes Status: Acute (2) Ear infection Current Visit: Yes Status: Acute (3) CHF (congestive heart failure) Onset Date: 12/26/17 Current Visit: No Status: Chronic (4) CKD (chronic kidney disease) Onset Date: 11/12/17 Current Visit: No Status: Chronic Qualifiers: Chronic kidney disease stage: on chronic dialysis Qualified Code(s): N18.6 - End stage renal disease; Z99.2 - Dependence on renal dialysis (5) COPD (chronic obstructive pulmonary disease) Onset Date: 12/26/17 Current Visit: No Status: Chronic Qualifiers: COPD type: unspecified COPD Qualified Code(s): J44.9 - Chronic obstructive pulmonary disease, unspecified (6) Essential (primary) hypertension Onset Date: 11/12/17 Current Visit: No Status: Chronic (7) GERD (gastroesophageal reflux disease) Current Visit: No Status: Chronic Qualifiers: Esophagitis presence: esophagitis presence not specified Qualified Code(s): K21.9 - Gastro-esophageal reflux disease without esophagitis (8) Hypertension Onset Date: 12/26/17 Current Visit: No Status: Chronic Qualifiers: Hypertension type: essential hypertension (9) Hypothyroidism Onset Date: 12/26/17 Current Visit: No Status: Chronic Qualifiers: Hypothyroidism type: unspecified - Plan ENT consulted continue IV abx, pain management nephrology consulted for dialysis BP currently stable, continue to monitor COPD currently stable, continue to monitor CHF currently stable, continue to monitor reconcile and continue home medications Discharge Plan: Home Plan to discharge in: 24 Hours - Advance Directives Does patient have a Living Will: No Does patient have a Durable POA for Healthcare: No - Code Status/Comfort Care Code Status Assessed: Yes (full code) Critical Care: No Time Spent Managing Pts Care (In Minutes): 70 <Keegan Wilde - Last Filed: 12/24/20 04:43> Date of Service: 12/24/20 Agree with plan of care as mentioned above. Patient's clinical symptoms are improving. Erythema has improved. Lymphadenopathy is improved continue with antibiotic coverage. <Madonna López - Last Filed: 12/26/20 02:48>
[2020-12-24 06:39] LABS: Albumin 2.8 g/dL (3.4-5.0); Bilirubin Total 0.3 mg/dL (0.2-1.0); Potassium 3.7 mmol/L (3.5-5.1); Protein, Total 5.9 g/dL (6.4-8.2); Thyroid Stimulating Hormone 0.289 uIU/mL (0.360-3.740)
--- NOTE | 2020-12-24 08:41 | RAD REPORT ---
EXAM DESCRIPTION: RAD - Chest Single View - 12/24/2020 12:46 am CLINICAL HISTORY: COUGH Chest pain. COMPARISON: Chest Pa And Lat (2 Views) dated 05/05/2020; Chest Pa And Lat (2 Views) dated 12/25/2019; Chest Pa And Lat (2 Views) dated 12/26/2017; Chest Single View dated 12/25/2017 FINDINGS: Portable technique limits examination quality. Mild interstitial pulmonary edema. The heart is upper limit normal in size. Small to moderate hiatal hernia.Right-sided venous catheter has tip in right atrium. Cervical hardware plate and right humeral prosthesis noted.
--- NOTE | 2020-12-24 09:16 | RAD REPORT ---
EXAM DESCRIPTION: CT SOFT TISSUE NECK WITHOUT IV CONTRAST CLINICAL HISTORY: FACIAL PAIN TECHNIQUE: Contiguous axial images obtained through the neck without IV contrast. Coronal and sagitt al reformatted images were provided. This exam was performed according to our departmental dose-optimization program, which includes autom ated exposure control, adjustment of the mA and/or kV according to patient size and/or use of iterati ve reconstruction technique. COMPARISON: None available for comparison FINDINGS: Oropharynx: Unremarkable. No significant tonsillar enlargement. No peritonsillar abscess. Hypopharynx: Unremarkable Larynx: Unremarkable. Normal epiglottis. Trachea: Unremarkable Retropharyngeal space: Unremarkable Submandibular/parotid glands: The left submandibular gland is mildly asymmetrically enlarged relative to the right. Mild infiltrative changes within the adjacent soft tissues. Thyroid: Unremarkable Bones/joints: Prior anterior fusion, discectomy and interposition graft placement at C4-C7. Moderate degenerative changes at C3-C4 with associated severe left foraminal narrowing. Moderate degenerative changes at the temporomandibular joints bilaterally. Partially visualized right shoulder arthroplasty hardware. Soft tissues: Mild to moderate infiltrative changes along the left submandibular region and neck with mild platysmal thickening. Vessels: Atherosclerotic disease at the right carotid bifurcation and the carotid siphon bilaterally. Lymph nodes: No pathologically enlarged lymph nodes. Paranasal sinuses: Mild bilateral sphenoid and right posterior ethmoid sinus mucosal thickening. Righ t sphenoid sinus mucous retention cyst/polyp. Mastoid air cells: Prior left mastoidectomy. Lung apices: Minimal biapical pleural parenchymal scar. IMPRESSION: Mild to moderate infiltrative changes within the left submandibular soft tissues and nec k with mild platysmal thickening. Mild asymmetric enlargement of the left submandibular gland. Findin gs may be related to sialoadenitis. Electronically signed by: Pamela Valerio MD 12/24/2020 1:41 AM CDT Due to temporary technical issues with the PACS/Fluency reporting system, reports are being signed by the in house radiologist without review as a courtesy to ensure prompt reporting. The interpreting r adiologist is fully responsible for the content of the report.
--- NOTE | 2020-12-24 09:21 | RAD REPORT ---
EXAM DESCRIPTION: CT Head Without Intravenous Contrast CLINICAL HISTORY: The patient is 80 years old and is Female; PAIN TECHNIQUE: Axial computed tomography images of the head/brain without intravenous contrast. Sagitt al and coronal reformatted images were created and reviewed. This CT exam was performed using one o r more of the following dose reduction techniques: automated exposure control, adjustment of the mA and/or kV according to patient size, and/or use of iterative reconstruction technique. COMPARISON: No relevant prior studies available. FINDINGS: Brain: Mild nonspecific white matter changes likely related to chronic microvascular isc hemic disease. Mild cerebral atrophy. No hemorrhage. Ventricles: Mild ventricular prominence. Bones/joints: Unremarkable. No acute fracture. Soft tissues: Unremarkable. Sinuses: Unremarkable as visualized. Mastoid air cells: Hypopneumatization of the left mastoid. Suggestion of prior left mastoidectom y. IMPRESSION: No acute intracranial abnormality. Electronically signed by: Reyes Hui MD 12/24/2020 1:41 AM CDT Due to temporary technical issues with the PACS/Fluency reporting system, reports are being signed by the in house radiologist without review as a courtesy to ensure prompt reporting. The interpreting r adiologist is fully responsible for the content of the report.
[2020-12-24] MEDS: CLINDAMYCIN INJ 900 MG in NA CHLORIDE 0.9% 50 ML IV SCH ×2 (09:42→19:21)
[2020-12-24] MEDS: TRAMADOL 37.5mg/APAP 325mg PER TAB PO PRN (11:38)
[2020-12-24] MEDS: METHYLPREDNISOLONE 40 MG INJ IV SCH ×2 (11:38→19:24)
[2020-12-24] MEDS: HYDRALAZINE HCL 25 MG TABLET PO SCH ×2 (11:38→21:56)
[2020-12-24] MEDS: LEVOTHYROXINE SOD 0.112 MG TAB PO SCH (11:38)
[2020-12-24] MEDS: BUSPIRONE HCL 5 MG TABLET PO SCH (11:39)
[2020-12-24] MEDS: PANTOPRAZOLE 40MG TABLET PO SCH (11:39)
[2020-12-24] MEDS: SERTRALINE HCL 100 MG TAB PO SCH (11:39)
[2020-12-24 13:17] LABS: Urine Appearance CLOUDY (Clear); Urine Bilirubin NEGATIVE (Negataive); Urine Blood NEGATIVE (Negative); Urine Color YELLOW (Yellow); Urine Glucose NEGATIVE (Negative); Urine Protein TRACE (Negative); Urine Specific Gravity 1.015 (1.005-1.030); Urine Urobilinogen 0.2 mg/dL (0.2-1.0); Urine pH 5.5 (5.0-7.0)
[2020-12-24 13:24] LABS: Urine Microscopic Reflex ORDER UMIC
[2020-12-24 13:29] LABS: Urine Bacteria LOADED /HPF (<20); Urine RBC NONE SEEN /HPF (NONE SEEN)
[2020-12-24] MEDS ORDERED: NA CHLORIDE 0.9% 1,000 ML IV PRN (13:57)
[2020-12-24] MEDS ORDERED: MANNITOL 25% 12.5 GM/50 ML VIAL IV PRN (13:57)
[2020-12-24] MEDS ORDERED: ALBUMIN HUMAN 25% 50 ML IV SCH (14:00)
[2020-12-24] MEDS: MORPHINE 2 MG/ML SYR IV PRN ×2 (14:52→21:57)
--- NOTE | 2020-12-24 18:55 | P.CNS ---
Date of Consult: 12/24/20 Reason for Consult: ESRD Requesting Physician: Madonna López Chief Complaint: sialodenitis, ESRD History of Present Illness: Ms. Harris is a 80 yo F with COPD, GERD, HTN, hypothyroidism, and CHF here today for left ear and neck pain beginning a few days ago and worsening last night. She denies night sweats, chills, nausea and vomiting. She reports dry mouth and pain everywhere. Says she took Benadryl with no relief of symptoms. She has recurrent ear aches after a procedure she had [address] of the neck consistent with sialodenitis. 00:31 This 80 yrs old Female presents to ER via Wheelchair with c omplaints of Ear cathy Infection. 00:31 The patient presents with pain, swelling, tenderness. The complaints af fect the left cathy ear, chin, left jaw, left cheek and left mandible. Onset: The symptoms/episode began/occurred 3 day(s) ago. Modifying factors: The symptoms are alleviat ed by nothing, the symptoms are aggravated by nothing. The patient or guardian complains of pain, swelling, tenderness. The symptoms are located on the neck. Context: The problem was sustained at an unknown location. Associated signs and symptoms: Pertinent positives: nausea. Modifying factors: The symptoms are alleviated by nothing. the symptoms are aggravated by nothing. Allergies baclofen Allergy (Intermediate, Verified 11/26/17 20:35) Shortness of breath prochlorperazine [From Compazine] Allergy (Intermediate, Verified 06/16/20 12:59) "out of it" cefepime Allergy (Mild, Verified 11/26/17 20:35) Rash ondansetron HCl [From Zofran] Allergy (Mild, Verified 11/26/17 20:35) Rash vancomycin Allergy (Mild, Verified 11/26/17 20:35) Rash nitrofurantoin [From Macrobid] Allergy (Verified 11/26/17 20:35) Unknown Home medications list reviewed: Yes Home Medications: Levothyroxine [Synthroid*] 112 mcg PO [id number] #30 tab 11/17/17 Oxybutynin Chloride 5 mg PO TID #60 tablet 11/17/17 Sertraline [Zoloft*] 100 mg PO DAILY #30 tab 11/17/17 Hydralazine HCl [Apresoline] 1 tab PO TID 12/26/17 Multivitamin/Iron/Folic Acid [Multi-Day Plus Iron Tablet] 1 tab PO DAILY 12/26/17 Tramadol HCl/Acetaminophen [Ultracet Tablet] 1 tab PO DAILY 12/26/17 Acetaminophen [Tylenol Extra Strength] 500 mg PO Q6H PRN 12/24/20 Atenolol [Tenormin] 25 mg PO BID 12/24/20 Cholecalciferol (Vitamin D3) [Vitamin D 5,000 IU Cap*] 1,000 unit PO DAILY 12/24/20 Doxazosin Mesylate 4 mg PO BID 12/24/20 Furosemide [Lasix*] 40 mg PO DAILY 12/24/20 Hydroxychloroquine [Plaquenil*] 400 mg PO DAILY 12/24/20 Isosorbide Mononitrate [Isosorbide Mononitrate ER] 60 mg PO DAILY 12/24/20 Losartan Potassium [Cozaar] 50 mg PO BID 12/24/20 Mecobalamin [B12 Active] 1,000 mcg PO DAILY 12/24/20 Metoclopramide [Reglan*] 5 mg PO QID PRN 12/24/20 Pantoprazole [Protonix Tab] 40 mg PO BID 12/24/20 Sodium Chloride Tab [Sodium Chloride*] 2 tab PO BID 12/24/20 hydrOXYzine pamoate [Hydroxyzine Pamoate] 1 tab PO BID PRN 12/24/20 - Past Medical/Surgical History Diabetic: No -: COPD -: HTN -: GERD -: Hypothyroidism -: CHF, diastolic dysfunction -: Chronic kidney disease -: Right atrophic kidney -: Lymphedema -: cholecystectomy -: appendectomy -: hysterectomy -: tonsillectomy -: L hip sx -: x2 abdominal hernia repairs -: right arm sx -: right ankle sx Psychosocial/ Personal History: The patient is . She is currently at a skilled facility - Family History Father Notes: brain aneurysm Mother Notes: aortic aneurysm Sister Medical History: Heart disease, Lung disease Notes: COPD, Heart problems, gallstones Brother Medical History: Lung disease Notes: asthma - Social History Smoking Status: Never smoker Alcohol use: No CD- Drugs: No Caffeine use: Yes Place of Residence: Home Review of Systems 10-point ROS is otherwise unremarkable General: Malaise Respiratory: SOB with Excertion Cardiovascular: Edema Neurological: Weakness Physical Examination Temp Pulse Resp BP Pulse Ox 98.1 F 68 18 169/79 H 96 12/24/20 12:00 12/24/20 12:00 12/24/20 14:52 12/24/20 13:56 12/24/20 14:52 General: In no apparent distress, Oriented x3, Cooperative HEENT: Atraumatic Neck: Supple, Other (Left neck mass with tenderness) Respiratory: Diminished Cardiovascular: Regular rate/rhythm, Edema Gastrointestinal: Soft and benign, Non-distended, No guarding Musculoskeletal: No clubbing, No contractures Integumentary: No rashes, No cyanosis Neurological: Normal speech Laboratory Data (last 24 hrs) 12/24/20 01:27: PT 12.9 H, INR 1.12 12/24/20 01:27: WBC 5.50, Hgb 11.2 L, Hct 34.8 L, Plt Count 124 L 12/24/20 01:27: Sodium 142, Potassium 3.9, BUN 18, Creatinine 2.34 H, Glucose 99, Magnesium 1.7 L, Total Bilirubin 0.4, AST 20, ALT 17, Alkaline Phosphatase 63 Imagings Data: EXAM DESCRIPTION: RAD - Chest Single View - 12/24/2020 12:46 am CLINICAL HISTORY: COUGH Chest pain. COMPARISON: Chest Pa And Lat (2 Views) dated 05/05/2020; Chest Pa And Lat (2 Views) dated 12/25/2019; Chest Pa And Lat (2 Views) dated 12/26/2017; Chest Single View dated 12/25/2017 FINDINGS: Portable technique limits examination quality. Mild interstitial pulmonary edema. The heart is upper limit normal in size. Small to moderate hiatal hernia.Right-sided venous catheter has tip in right atrium. Cervical hardware plate and right humeral prosthesis noted. EXAM DESCRIPTION: CT Head Without Intravenous Contrast CLINICAL HISTORY: The patient is 80 years old and is Female; PAIN TECHNIQUE: Axial computed tomography images of the head/brain without intravenous contrast. Sagittal and coronal reformatted images were created and reviewed. This CT exam was performed using one or more of the following dose reduction techniques: automated exposure control, adjustment of the mA and/or kV according to patient size, and/or use of iterative reconstruction technique. COMPARISON: No relevant prior studies available. FINDINGS: Brain: Mild nonspecific white matter changes likely related to chronic microvascular ischemic disease. Mild cerebral atrophy. No hemorrhage. Ventricles: Mild ventricular prominence. Bones/joints: Unremarkable. No acute fracture. Soft tissues: Unremarkable. Sinuses: Unremarkable as visualized. Mastoid air cells: Hypopneumatization of the left mastoid. Suggestion of prior left mastoidectomy. IMPRESSION: No acute intracranial abnormality. EXAM DESCRIPTION: CT SOFT TISSUE NECK WITHOUT IV CONTRAST CLINICAL HISTORY: FACIAL PAIN TECHNIQUE: Contiguous axial images obtained through the neck without IV contrast. Coronal and sagittal reformatted images were provided. This exam was performed according to our departmental dose-optimization program, which includes automated exposure control, adjustment of the mA and/or kV according to patient size and/or use of iterative reconstruction technique. COMPARISON: None available for comparison FINDINGS: Oropharynx: Unremarkable. No significant tonsillar enlargement. No peritonsillar abscess. Hypopharynx: Unremarkable Larynx: Unremarkable. Normal epiglottis. Trachea: Unremarkable Retropharyngeal space: Unremarkable Submandibular/parotid glands: The left submandibular gland is mildly asymmetrically enlarged relative to the right. Mild infiltrative changes within the adjacent soft tissues. Thyroid: Unremarkable Bones/joints: Prior anterior fusion, discectomy and interposition graft placement at C4-C7. Moderate degenerative changes at C3-C4 with associated severe left foraminal narrowing. Moderate degenerative changes at the temporomandibular joints bilaterally. Partially visualized right shoulder arthroplasty hardware. Soft tissues: Mild to moderate infiltrative changes along the left submandibular region and neck with mild platysmal thickening. Vessels: Atherosclerotic disease at the right carotid bifurcation and the carotid siphon bilaterally. Lymph nodes: No pathologically enlarged lymph nodes. Paranasal sinuses: Mild bilateral sphenoid and right posterior ethmoid sinus mucosal thickening. Right sphenoid sinus mucous retention cyst/polyp. Mastoid air cells: Prior left mastoidectomy. Lung apices: Minimal biapical pleural parenchymal scar. IMPRESSION: Mild to moderate infiltrative changes within the left submandibular soft tissues and neck with mild platysmal thickening. Mild asymmetric enlargement of the left submandibular gland. Findings may be related to sialoadenitis. Conclusions/Impression: ESRD -Acute HD ordered Hypomagnesemia -Recheck level HTN with CKD/ CHF -Continue Losartan -Continue Atenolol and Doxazosin Diastolic CHF, A/C -Continue Atenolol -Renal diet with fluid restricition -Start spironolactone Moderate malnutrition -Start Nepro Anemia in CKD -Give Retacrit Acute cystitis -Follow up urine culture Sialoadenitis -Continue Clindamycin Thank you kindly for the consultation
[2020-12-24] MEDS: SPIRONOLACTONE 25 MG TABLET PO SCH (19:27)
[2020-12-24] MEDS: MELATONIN 5 MG TABLET PO PRN (21:57)
[2020-12-25] MEDS: METHYLPREDNISOLONE 40 MG INJ IV SCH ×2 (00:35→08:51)
[2020-12-25] MEDS: CLINDAMYCIN INJ 900 MG in NA CHLORIDE 0.9% 50 ML IV SCH ×3 (00:35→16:03)
[2020-12-25] MEDS ORDERED: HYDRALAZINE HCL 20 MG/ML VIAL IV ONE (04:51)
[2020-12-25] MEDS: LEVOTHYROXINE SOD 0.112 MG TAB PO SCH (05:10)
[2020-12-25 06:26] VITALS: BMI 33.3
[2020-12-25] MEDS: MORPHINE 2 MG/ML SYR IV PRN ×2 (06:47→21:07)
[2020-12-25 06:52] LABS: Absolute Lymphocytes (CBC) 0.4 K/uL (0.7-4.9); Basophils % 0.1 % (0-1.3); Hematocrit 34.9 % (36.0-45.0); MPV 9.8 fL (7.6-11.3); RBC Red Blood Cell Count 3.54 M/uL (3.86-4.86)
[2020-12-25 07:07] LABS: Bilirubin Total 0.3 mg/dL (0.2-1.0); Magnesium 1.9 mg/dL (1.8-2.4); Phosphorus 3.2 mg/dL (2.5-4.9); Potassium 4.1 mmol/L (3.5-5.1); Protein, Total 6.6 g/dL (6.4-8.2)
[2020-12-25 08:38] LABS: Blood Morphology Comment NOT SEEN (NOT SEEN); Platelet Estimate DECR; White Blood Cell Scan OK (OK)
[2020-12-25] MEDS: BUSPIRONE HCL 5 MG TABLET PO SCH (08:45)
[2020-12-25] MEDS: SERTRALINE HCL 100 MG TAB PO SCH (08:45)
[2020-12-25] MEDS: DOXAZOSIN 4 MG TAB PO SCH ×2 (08:45→20:58)
[2020-12-25] MEDS: HYDRALAZINE HCL 25 MG TABLET PO SCH ×4 (08:45→20:59)
[2020-12-25] MEDS: LOSARTAN POTASSIUM 50 MG TABLET PO SCH ×2 (08:46→21:00)
[2020-12-25] MEDS: atenoloL 25 MG TAB PO SCH ×2 (08:46→20:57)
[2020-12-25] MEDS: SPIRONOLACTONE 25 MG TABLET PO SCH (08:46)
[2020-12-25] MEDS: PANTOPRAZOLE 40MG TABLET PO SCH (08:46)
[2020-12-25] MEDS: ISOSORBIDE MONO SR 30 MG TAB PO SCH (08:46)
[2020-12-25] MEDS: NEPRO SHAKE 237 ML CAN PO SCH ×3 (08:47→21:00)
[2020-12-25] MEDS ORDERED: HOME MED 1 EA UNK (Dexlansoprazole [Dexilant] 30 MG Cap.Dr.Bp) PO SCH (09:00)
[2020-12-25] MEDS ORDERED: ISOSORBIDE MONO SR 60 MG TAB PO SCH (09:00)
[2020-12-25] MEDS: TRAMADOL 37.5mg/APAP 325mg PER TAB PO PRN (16:02)
[2020-12-25] MEDS ORDERED: MAGNES/ALUMIN/SIMET 30ML UCUP PO ONE ×2 (16:22→16:28)
[2020-12-25] MEDS: DOCUSATE NA 100 MG CAP PO SCH (16:48)
[2020-12-25] MEDS ORDERED: SIMETHICONE 80 MG TAB PO ONE (17:36)
[2020-12-25] MEDS: MELATONIN 5 MG TABLET PO PRN (21:00)
[2020-12-25] MEDS: predniSONE 20 MG TAB PO SCH (21:00)
[2020-12-26] MEDS: CLINDAMYCIN INJ 900 MG in NA CHLORIDE 0.9% 50 ML IV SCH ×3 (00:14→16:05)
--- NOTE | 2020-12-26 02:54 | P.PN ---
Subjective Date of Service: 12/25/20 Subjective: No new changes, No C/O voiced, Improving Review of Systems 10-point ROS is otherwise unremarkable Physical Examination - Vital Signs Temperature: 97.0 F Blood Pressure: 108/66 Pulse: 59 Respirations: 16 Pulse Ox (%): 90 - Physical Exam General: Alert, In no apparent distress, Oriented x3 HEENT: Atraumatic, PERRLA, EOMI Neck: Other (Some tenderness of the salivary gland) Respiratory: Clear to auscultation bilaterally, Normal air movement Cardiovascular: Regular rate/rhythm, Normal S1 S2, No murmurs Gastrointestinal: Normal bowel sounds, Soft and benign, Non-distended, No tenderness Musculoskeletal: No clubbing, No swelling, No tenderness Neurological: Normal speech, Normal strength at 5/5 x4 extr, Normal tone, Sensation intact, Cranial nerves 3-12 intact - Studies Medications List Reviewed: Yes Assessment & Plan - Problems (Diagnosis) (1) Sialadenitis Current Visit: Yes Status: Acute (2) Asthma Onset Date: 11/12/17 Current Visit: No Status: Acute (3) Anemia Onset Date: 12/26/17 Current Visit: No Status: Chronic Qualifiers: Anemia type: due to chronic kidney disease Chronic kidney disease stage: stage 3 (moderate) (4) CHF (congestive heart failure) Onset Date: 12/26/17 Current Visit: No Status: Chronic Qualifiers: (5) CKD (chronic kidney disease) Onset Date: 11/12/17 Current Visit: No Status: Chronic Qualifiers: Chronic kidney disease stage: on chronic dialysis Qualified Code(s): N18.6 - End stage renal disease; Z99.2 - Dependence on renal dialysis (6) COPD (chronic obstructive pulmonary disease) Onset Date: 12/26/17 Current Visit: No Status: Chronic Qualifiers: COPD type: unspecified COPD Qualified Code(s): J44.9 - Chronic obstructive pulmonary disease, unspecified (7) Depression with anxiety Current Visit: No Status: Chronic (8) Hypertension Onset Date: 12/26/17 Current Visit: No Status: Chronic Qualifiers: Hypertension type: essential hypertension (9) Hypothyroidism Onset Date: 12/26/17 Current Visit: No Status: Chronic Qualifiers: Hypothyroidism type: unspecified (10) BLANCO (obstructive sleep apnea) Onset Date: 11/12/17 Current Visit: No Status: Chronic - Plan 1. Continue with IV antibiotic 2. IV steroids 3. ENT consultation obtained 4. Gentle IV hydration 5. Monitor CBC 6. Strict blood sugar monitoring 7. Pain control 8. GI and DVT prophylaxis Discharge Plan: Home Plan to discharge in: Greater than 2 days - Advance Directives Does patient have a Living Will: No Does patient have a Durable POA for Healthcare: No - Code Status/Comfort Care Code Status Assessed: Yes Code Status: Full Code Critical Care: No Time Spent Managing PTS Care (In Minutes): 35
[2020-12-26] MEDS: LEVOTHYROXINE SOD 0.112 MG TAB PO SCH (06:09)
[2020-12-26 07:43] LABS: Absolute Lymphocytes (CBC) 0.7 K/uL (0.7-4.9); Basophils % 0.2 % (0-1.3); Lymphocytes % 8.3 % (15.3-44.8); MPV 9.8 fL (7.6-11.3); RBC Red Blood Cell Count 3.25 M/uL (3.86-4.86)
[2020-12-26 07:52] LABS: Magnesium 2.1 mg/dL (1.8-2.4); Potassium 4.9 mmol/L (3.5-5.1)
--- NOTE | 2020-12-26 07:55 | RAD REPORT ---
EXAM DESCRIPTION: [place] Single View12/26/2020 6:18 am CLINICAL HISTORY: Shortness breath COMPARISON: December 24, 2020 FINDINGS: The lungs appear clear acute infiltrate. The heart remains enlarged. Central venous cathet er remains in place
[2020-12-26] MEDS: BUSPIRONE HCL 5 MG TABLET PO SCH (08:46)
[2020-12-26] MEDS: predniSONE 20 MG TAB PO SCH ×2 (08:46→20:16)
[2020-12-26] MEDS: DOXAZOSIN 4 MG TAB PO SCH ×2 (08:46→20:15)
[2020-12-26] MEDS: atenoloL 25 MG TAB PO SCH ×2 (08:46→20:13)
[2020-12-26] MEDS: PANTOPRAZOLE 40MG TABLET PO SCH (08:47)
[2020-12-26] MEDS: DOCUSATE NA 100 MG CAP PO SCH ×2 (08:47→20:13)
[2020-12-26] MEDS: ISOSORBIDE MONO SR 30 MG TAB PO SCH (08:47)
[2020-12-26] MEDS: LOSARTAN POTASSIUM 50 MG TABLET PO SCH (08:47)
[2020-12-26] MEDS: HYDRALAZINE HCL 25 MG TABLET PO SCH ×2 (08:47→20:17)
[2020-12-26] MEDS: SERTRALINE HCL 100 MG TAB PO SCH (08:47)
[2020-12-26] MEDS: SPIRONOLACTONE 25 MG TABLET PO SCH (08:47)
[2020-12-26] MEDS: NEPRO SHAKE 237 ML CAN PO SCH ×3 (08:48→20:18)
[2020-12-26] MEDS: TRAMADOL 37.5mg/APAP 325mg PER TAB PO PRN ×2 (08:56→20:13)
[2020-12-26] MEDS ORDERED: NA CHLORIDE 0.9% 1,000 ML IV SCH (11:00)
--- NOTE | 2020-12-26 11:10 | PN ---
Date of Progress Note: 12/26/2020 Subjective: The patient is seen at bedside. No events reported. The patient feels well. She is ab le to eat her breakfast. She states that her swelling and her pain improved. Objective: Vital Signs: Blood pressure is 165/71, pulse 61, afebrile. Blood pressure trend is in t he 140s to 160s. General: No acute distress. HEENT: Submandibular swelling noted. However, it is soft and nontender. Heart: Regular rate and rhythm. No murmurs, rubs, gallops. Lungs: Grossly clear. Abdomen: Soft. Extremities: With trace to 1+ edema. Laboratory Data: Hemoglobin 10.7, hematocrit 32. Serum chemistry; potassium 4.9, BUN 32, creatinine 3.15, calcium 9.3, phosphorus level was 3.2. The patient's UA from the was noted. Microbiology data; the patient's urine culture had showed no growth. Current Medications: Reviewed. The patient is on atenolol, clindamycin, doxazosin, heparin, hydrala zine, losartan 50 b.i.d. Remainder medications were noted. Impression: 1.End-stage renal disease, on hemodialysis. 2.Sialoadenitis. 3.Possible urinary tract infection. 4.Hypertension. 5.Electrolyte imbalance. 6.Anemia and chronic kidney disease. Plan: The patient is stable from electrolyte standpoint. Dialysis orders have been placed for tomor row. Continue antibiotics. The patient did have UA findings of infection; however, the culture had been n egative. I am repeating the patient's UA and culture to confirm that the patient indeed does have ur inary tract infection. If that is the case, the patient should have broadening of her antibiotic coverage. She has remained afebrile. Her white blood cell count has been normal. Not complaining of any symptoms. SE/MODL Voice ID: [id number] Report ID: [id number]
[2020-12-26 11:51] LABS: Urine Appearance CLOUDY (Clear); Urine Blood NEGATIVE (Negative); Urine Color DK YELLOW (Yellow); Urine Glucose NEGATIVE (Negative); Urine Protein TRACE (Negative); Urine Urobilinogen 0.2 mg/dL (0.2-1.0)
[2020-12-26] MEDS: MINERAL OIL 30 ML UCUP PO ONE ×2 (11:53→12:30)
[2020-12-26 12:00] LABS: Urine Bilirubin 1+ (Negataive)
[2020-12-26 12:18] LABS: Urine Bacteria <20 /HPF (<20); Urine RBC <5 /HPF (NONE SEEN)
[2020-12-26 12:19] LABS: Urine Mucus 1+ /HPF (NONE SEEN)
[2020-12-26] MEDS: MORPHINE 2 MG/ML SYR IV PRN ×2 (12:29→23:58)
[2020-12-26] MEDS ORDERED: ONDANSETRON 4 MG/2 ML VIAL IV PRN (14:18)
[2020-12-26] MEDS ORDERED: METOCLOPRAMIDE 10 MG/2mL INJ IV ONE (14:57)
[2020-12-26] MEDS ORDERED: METOCLOPRAMIDE 10 MG/2mL INJ IV SCH (15:00)
[2020-12-26] MEDS ORDERED: MAGNESIUM HYDROXIDE 8% 30 ML PO PRN (16:33)
[2020-12-26] MEDS ORDERED: BISACODYL 10 MG RECTAL SUPP PR PRN (16:33)
[2020-12-27] MEDS: CLINDAMYCIN INJ 900 MG in NA CHLORIDE 0.9% 50 ML IV SCH ×2 (00:01→08:18)
--- NOTE | 2020-12-27 01:43 | P.PN ---
Date of Service: 12/26/20 Subjective Subjective: Patient continues to improve with no new complaints. Patient complained of constipation. Will give her a suppository. She has some nausea. Will give her some Reglan. Her in feel comfortable taking her home because she is been close to on numerous occasions according to him. Anticipate dialysis in the morning and then patient can discharge afterwards. Review of Systems 10-point ROS is otherwise unremarkable Physical Examination - Vital Signs Reviewed - Physical Exam General: Alert, In no apparent distress, Oriented x3 HEENT: Atraumatic, PERRLA, EOMI Neck: Other (Some tenderness of the salivary gland) Respiratory: Clear to auscultation bilaterally, Normal air movement Cardiovascular: Regular rate/rhythm, Normal S1 S2, No murmurs Gastrointestinal: Normal bowel sounds, Soft and benign, Non-distended, No tenderness Musculoskeletal: No clubbing, No swelling, No tenderness Neurological: Normal speech, Normal strength at 5/5 x4 extr, Normal tone, Sens ation intact, Cranial nerves 3-12 intact - Studies Medications List Reviewed: Yes Assessment & Plan - Problems (Diagnosis) (1) Sialadenitis Current Visit: Yes Status: Acute (2) Asthma Onset Date: 11/12/17 Current Visit: No Status: Acute (3) Anemia Onset Date: 12/26/17 Current Visit: No Status: Chronic Anemia type: due to chronic kidney disease Chronic kidney disease stage: stage 3 (moderate) (4) CHF (congestive heart failure) Onset Date: 12/26/17 Current Visit: No Status: Chronic (5) CKD (chronic kidney disease) Onset Date: 11/12/17 Current Visit: No Status: Chronic Chronic kidney disease stage: on chronic dialysis Qualified Code(s): N18.6 - End stage renal disease; Z99.2 - Dependence on renal dialysis (6) COPD (chronic obstructive pulmonary disease) Onset Date: 12/26/17 Current Visit: No Status: Chronic COPD type: unspecified COPD Qualified Code(s): J44.9 - Chronic obstructive pulmonary disease, unspecified (7) Depression with anxiety Current Visit: No Status: Chronic (8) Hypertension Onset Date: 12/26/17 Current Visit: No Status: Chronic Hypertension type: essential hypertension (9) Hypothyroidism Onset Date: 12/26/17 Current Visit: No Status: Chronic Hypothyroidism type: unspecified (10) BLANCO (obstructive sleep apnea) Onset Date: 11/12/17 Current Visit: No Status: Chronic - Plan 1. Continue with IV antibiotic 2. Tapering dose of steroids 3. ENT consultation as an outpatient 4. Hep-Lock IV 5. Reglan for nausea 6. Strict blood sugar monitoring 7. Pain control 8. GI and DVT prophylaxis
[2020-12-27] MEDS: TRAMADOL 37.5mg/APAP 325mg PER TAB PO PRN (05:33)
[2020-12-27] MEDS: LEVOTHYROXINE SOD 0.112 MG TAB PO SCH (05:34)
[2020-12-27 06:37] VITALS: TEMP 97.7
[2020-12-27] MEDS: HYDRALAZINE HCL 25 MG TABLET PO SCH (08:16)
[2020-12-27] MEDS: DOXAZOSIN 4 MG TAB PO SCH (08:17)
[2020-12-27] MEDS: BUSPIRONE HCL 5 MG TABLET PO SCH (08:17)
[2020-12-27] MEDS: SERTRALINE HCL 100 MG TAB PO SCH (08:17)
[2020-12-27] MEDS: PANTOPRAZOLE 40MG TABLET PO SCH (08:17)
[2020-12-27] MEDS: predniSONE 20 MG TAB PO SCH (08:17)
[2020-12-27] MEDS: NEPRO SHAKE 237 ML CAN PO SCH ×2 (08:17→14:00)
[2020-12-27] MEDS: ISOSORBIDE MONO SR 30 MG TAB PO SCH (08:17)
[2020-12-27] MEDS: atenoloL 25 MG TAB PO SCH (08:17)
[2020-12-27] MEDS: DOCUSATE NA 100 MG CAP PO SCH (08:17)
[2020-12-27 08:38] VITALS: BP 171/72
[2020-12-27 09:23] VITALS: O2SAT 95
[2020-12-27] MEDS: MORPHINE 2 MG/ML SYR IV PRN (09:55)
--- NOTE | 2020-12-27 10:49 | P.DS ---
Admission Date: 12/24/20 Discharge Date: 12/27/20 Primary Care Provider: unknown; Nephrology-Dr. Sargent/Dr. Quiroga Disposition: ROUTINE DISCHARGE Discharge Condition: GOOD Reason for Admission: sialodenitis, ESRD Consultations: Nephrology-Dr. Sargent Procedures: COVID: Negative CT scan: COMPARISON: None available for comparison FINDINGS: Oropharynx: Unremarkable. No significant tonsillar enlargement. No peritonsillar abscess. Hypopharynx: Unremarkable Larynx: Unremarkable. Normal epiglottis. Trachea: Unremarkable Retropharyngeal space: Unremarkable Submandibular/parotid glands: The left submandibular gland is mildly asymmetrically enlarged relative to the right. Mild infiltrative changes within the adjacent soft tissues. Thyroid: Unremarkable Bones/joints: Prior anterior fusion, discectomy and interposition graft placement at C4-C7. Moderate degenerative changes at C3-C4 with associated severe left foraminal narrowing. Moderate degenerative changes at the temporomandibular joints bilaterally. Partially visualized right shoulder arthroplasty hardware. Soft tissues: Mild to moderate infiltrative changes along the left submandibular region and neck with mild platysmal thickening. Vessels: Atherosclerotic disease at the right carotid bifurcation and the carotid siphon bilaterally. Lymph nodes: No pathologically enlarged lymph nodes. Paranasal sinuses: Mild bilateral sphenoid and right posterior ethmoid sinus mucosal thickening. Right sphenoid sinus mucous retention cyst/polyp. Mastoid air cells: Prior left mastoidectomy. Lung apices: Minimal biapical pleural parenchymal scar. IMPRESSION: Mild to moderate infiltrative changes within the left submandibular soft tissues and neck with mild platysmal thickening. Mild asymmetric enlargement of the left submandibular gland. Findings may be related to sialoadenitis. Follow up CT scan: COMPARISON: Soft Tissue Neck Wo Contr dated 12/24/2020 TECHNIQUE: During dynamic enhancement using 100 milliliters nonionic IV contrast, axial 5 millimeter thick images of the neck were obtained. All CT scans are performed using dose optimization technique as appropriate and may include automated exposure control or mA/KV adjustment according to patient size. FINDINGS: Infectious/inflammatory changes seen in the left neck fatty soft tissue and platysma on the December 24 examination has substantially diminished. Currently the left parotid and left submandibular glands show no suspicious findings. There is no new or progressive left-side finding. The right parotid and right submandibular glands also without suspicious findings. No right-sided infectious/inflammatory changes identifiable. No air, foreign body or suspicious finding of the superficial soft tissues. Intracranial portion the examination is unremarkable. No globe or orbital content suspicious finding. Right-side mastoid air cells are clear. Postsurgical change to the left mastoid air cells noted with no acute finding. Pharyngeal mucosa shows no mass or asymmetry. Parapharyngeal fat is normal. No tonsil, tongue base, epiglottis or vocal cord abnormality seen. No suspicious mass or lymphadenopathy. No acute or destructive bone process identified. Paranasal sinuses are clear. IMPRESSION: Infectious/inflammatory changes to the left neck soft tissues detailed December 24 have shown significant improvement. No abscess, air or complication to the left-side finding. Patient indicates new right-sided pain. No inflammatory stranding, lymph node or other suspicious finding noted on the right. Medical Problem List: Left submandibular gland enlargement secondary to Left sided sialoadenitis ESRD on hemodialysis HTN Hypothyroidism Anemia of chronic disease Depression with anxiety Chronic diastolic CHF Brief History of Present Illness: 80-year-old female presented to the emergency room with left some mandibular pain. CT scan revealed left submandibular enlargement with sialoadenitis. Patient was admitted for treatment. Hospital Course: Patient presented with left submandibular gland enlargement secondary to left- sided sialoadenitis. This was confirmed on CT scan. Patient was started on IV antibiotic therapy and steroids with improvement. Repeat CT scan shows significant improvement. No indication of abscess, obstruction noted. At discharge patient will continue with clindamycin 300 mg 3 times a day for 7 days and prednisone 20 mg 1 pill twice daily for 5 days. Patient may follow up with ENT as an outpatient to further evaluate if this persists. Recommend follow up with PCP in 1 week to follow up this hospitalization and continue her care. Patient with underlying end-stage renal disease on hemodialysis, hypertension, hypothyroidism, anemia chronic disease, depression with anxiety and chronic diastolic CHF. At discharge she will continue with her current medications including atenolol 25 mg 1 pill twice daily, losartan 50 mg 1 pill twice daily, Cardura 4 mg 1 pill twice daily, hydralazine 50 mg 1 pill twice daily, abuse Poor 10 mg daily, isosorbide mononitrate 60 mg daily, levothyroxine 112 mcg daily, Protonix 40 mg daily, Zoloft 100 mg daily, Lasix 40 mg daily, Plaquenil 200 mg daily, Atarax as directed, vitamin-D as directed. Patient also takes chronic pain medication tramadol as needed for pain. She will continue with her current medication. Patient did receive dialysis during the course of her stay. At discharge she will continue with dialysis every Sunday, Sunday and Sunday. Case discussed in detail with nephrology who agrees with plan of care. Follow up with nephrology in 1-2 weeks to follow up this hospitalization. Vital Signs/Physical Exam: Temp Pulse Resp BP Pulse Ox 97.7 F 54 16 171/72 H 93 12/27/20 08:00 12/27/20 08:00 12/27/20 10:25 12/27/20 08:00 12/27/20 10:25 General: Alert, In no apparent distress, Oriented x3, Cooperative HEENT: Atraumatic, Normocephalic, Other (No significant enlargement to the left submandibular region. No significant pain. No erythema.) Neck: Supple Respiratory: Clear to auscultation bilaterally, Normal air movement Cardiovascular: Normal pulses, Regular rate/rhythm Gastrointestinal: Normal bowel sounds, Soft and benign, Non-distended, No masses, No rebound, No guarding Musculoskeletal: No erythema, No tenderness, No warmth Integumentary: No tenderness/swelling, No erythema, No warmth, No cyanosis Neurological: Normal speech, Normal strength at 5/5 x4 extr, Normal tone, Normal affect Laboratory Data at Discharge: WBC 7.80 K/uL (4.3-10.9) D 12/26/20 07:02 Hgb 10.7 g/dL (12.0-15.0) L 12/26/20 07:02 Hct 32.0 % (36.0-45.0) L 12/26/20 07:02 Plt Count 121 K/uL (152-406) L 12/26/20 07:02 PT 12.9 SECONDS (9.5-12.5) H 12/24/20 01:27 INR 1.12 12/24/20 01:27 Sodium Cancelled 12/26/20 17:00 Potassium Cancelled 12/26/20 17:00 BUN Cancelled 12/26/20 17:00 Creatinine Cancelled 12/26/20 17:00 Glucose Cancelled 12/26/20 17:00 Phosphorus 3.2 mg/dL (2.5-4.9) 12/25/20 06:14 Magnesium 2.1 mg/dL (1.8-2.4) 12/26/20 07:02 Total Bilirubin 0.3 mg/dL (0.2-1.0) 12/25/20 06:14 AST 17 U/L (15-37) 12/25/20 06:14 ALT 16 U/L (12-78) 12/25/20 06:14 Alkaline Phosphatase 64 U/L (45-117) 12/25/20 06:14 Triglycerides 54 mg/dL (<150) 12/25/20 06:14 Cholesterol 157 mg/dL (<200) 12/25/20 06:14 HDL Cholesterol 45 mg/dL (40-60) 12/25/20 06:14 Cholesterol/HDL Ratio 3.49 12/25/20 06:14 Home Medications: Levothyroxine [Synthroid*] 112 mcg PO [id number] #30 tab 11/17/17 Oxybutynin Chloride 5 mg PO TID #60 tablet 11/17/17 Sertraline [Zoloft*] 100 mg PO DAILY #30 tab 11/17/17 Hydralazine HCl [Apresoline] 1 tab PO BID 12/26/17 Multivitamin/Iron/Folic Acid [Multi-Day Plus Iron Tablet] 1 tab PO DAILY 12/26/17 Tramadol HCl/Acetaminophen [Ultracet Tablet] 1 tab PO DAILY 12/26/17 Acetaminophen [Tylenol Extra Strength] 500 mg PO Q6H PRN 12/24/20 Atenolol [Tenormin] 25 mg PO BID 12/24/20 Cholecalciferol (Vitamin D3) [Vitamin D 5,000 IU Cap*] 1,000 unit PO DAILY 12/24/20 Doxazosin Mesylate 4 mg PO BID 12/24/20 Furosemide [Lasix*] 40 mg PO DAILY 12/24/20 Hydroxychloroquine [Plaquenil*] 400 mg PO DAILY 12/24/20 Isosorbide Mononitrate [Isosorbide Mononitrate ER] 60 mg PO DAILY 12/24/20 Losartan Potassium [Cozaar*] 50 mg PO BID 12/24/20 Mecobalamin [B12 Active] 1,000 mcg PO DAILY 12/24/20 Metoclopramide [Reglan*] 5 mg PO QID PRN 12/24/20 Pantoprazole [Protonix Tab*] 40 mg PO BID 12/24/20 Sodium Chloride Tab [Sodium Chloride*] 2 tab PO BID 12/24/20 hydrOXYzine pamoate [Hydroxyzine Pamoate] 1 tab PO BID PRN 12/24/20 Melatonin 5 mg PO BEDTIME PRN PRN #10 tablet 12/25/20 Nepro Shake [Nepro*] 237 ml PO TID #60 can 12/25/20 clindamycin HCL [Clindamycin HCl] 300 mg PO Q8H #21 capsule 12/25/20 predniSONE [Deltasone] 20 mg PO BID #11 tab 12/25/20 New Medications: clindamycin HCL [Clindamycin HCl] 300 mg PO Q8H #21 capsule Melatonin 5 mg PO BEDTIME PRN PRN #10 tablet PRN Reason: Insomnia Nepro Shake [Nepro*] 237 ml PO TID #60 can predniSONE [Deltasone] 20 mg PO BID #11 tab Physician Discharge Instructions: Patient presented with left submandibular gland enlargement secondary to left- sided sialoadenitis. This was confirmed on CT scan. Patient was started on IV antibiotic therapy and steroids with improvement. Repeat CT scan shows significant improvement. No indication of abscess, obstruction noted. At discharge patient will continue with clindamycin 300 mg 3 times a day for 7 days and prednisone 20 mg 1 pill twice daily for 5 days. Patient may follow up with ENT as an outpatient to further evaluate if this persists. Recommend follow up with PCP in 1 week to follow up this hospitalization and continue her care. Patient with underlying end-stage renal disease on hemodialysis, hypertension, hypothyroidism, anemia chronic disease, depression with anxiety and chronic diastolic CHF. At discharge she will continue with her current medications including atenolol 25 mg 1 pill twice daily, losartan 50 mg 1 pill twice daily, Cardura 4 mg 1 pill twice daily, hydralazine 50 mg 1 pill twice daily, abuse Poor 10 mg daily, isosorbide mononitrate 60 mg daily, levothyroxine 112 mcg daily, Protonix 40 mg daily, Zoloft 100 mg daily, Lasix 40 mg daily, Plaquenil 200 mg daily, Atarax as directed, vitamin-D as directed. Patient also takes ch ronic pain medication tramadol as needed for pain. She will continue with her current medication. Patient did receive dialysis during the course of her stay. At discharge she will continue with dialysis every Sunday, Sunday and Sunday. Case discussed in detail with nephrology who agrees with plan of care. Follow up with nephrology in 1-2 weeks to follow up this hospitalization. OK TO DC IV AND DC HOME FOLLOW-UP WITH PRIMARY CARE PROVIDER IN 1-2 WEEKS Follow-up with ENT in 1-2 weeks RETURN TO THE ER IF symptoms worsens CALL or TEXT DR. CRANE AT [phone] IF ANY QUESTIONS REGARDING HOSPITAL STAY. PLEASE CALL THE FLOOR AT [phone] IF ANY MEDICATION OR NURSING QUESTIONS. Diet: AHA Activity: Fall precautions Followup: Kobe Sargent DO [Primary Care Provider] - Time spent managing pt's care (in minutes): 55
--- NOTE | 2020-12-27 11:15 | RAD REPORT ---
EXAM DESCRIPTION: CT - Soft Tissue Neck W/Contr - 12/27/2020 9:11 am CLINICAL HISTORY: sialadenitis COMPARISON: Soft Tissue Neck Wo Contr dated 12/24/2020 TECHNIQUE: During dynamic enhancement using 100 milliliters nonionic IV contrast, axial 5 millimeter thick images of the neck were obtained. All CT scans are performed using dose optimization technique as appropriate and may include automated exposure control or mA/KV adjustment according to patient size. FINDINGS: Infectious/inflammatory changes seen in the left neck fatty soft tissue and platysma on December 24 examination has substantially diminished. Currently the left parotid and left submandibular glands show no suspicious findings. There is no new or progressive left-side finding. The right parot id and right submandibular glands also without suspicious findings. No right-sided infectious/inflamm atory changes identifiable. No air, foreign body or suspicious finding of the superficial soft tissues. Intracranial portion the examination is unremarkable. No globe or orbital content suspicious finding. Right-side mastoid air cells are clear. Postsurgical change to the left mastoid air cells noted with no acute finding. Pharyngeal mucosa shows no mass or asymmetry. Parapharyngeal fat is normal. No tonsil, tongue base, e piglottis or vocal cord abnormality seen. No suspicious mass or lymphadenopathy. No acute or destructive bone process identified. Paranasal sinuses are clear. IMPRESSION: Infectious/inflammatory changes to the left neck soft tissues detailed December 24 have shown significant improvement. No abscess, air or complication to the left-side finding. Patient indicates new right-sided pain. No inflammatory stranding, lymph node or other suspicious fin ding noted on the right.
--- NOTE | 2020-12-27 11:23 | P.PN ---
Subjective Date of Service: 12/27/20 Primary Care Provider: unknown; Nephrology-Dr. Sargent/Dr. Quiroga Chief Complaint: sialodenitis, ESRD Physical Examination - Vital Signs Temperature: 97.7 F Blood Pressure: 171/72 Pulse: 54 Respirations: 16 Pulse Ox (%): 93 - Studies Medications List Reviewed: Yes
--- NOTE | 2020-12-27 11:34 | P.PN ---
Subjective Date of Service: 12/27/20 Primary Care Provider: unknown; Nephrology-Dr. Sargent/Dr. Quiroga Chief Complaint: sialodenitis, ESRD patient seen/examined on dialysis. clincally looks well. alert. neck without any nodules/fullness/or masses on exam. no cellulitis noticed. ua with mixed althea. wbc count pantera. tolerating dialysis well. awaiting final results of neck ct does not seem to have neck abcess on exam and clinically looks well. has dialysis chair. seems stable for d/c after dialysis with plan to f/u at dialysis unit. complete course of clindamycin . er warning counseled. Physical Examination - Vital Signs Temperature: 97.7 F Blood Pressure: 171/72 Pulse: 54 Respirations: 16 Pulse Ox (%): 93 - Studies Medications List Reviewed: Yes
== END 2020-12-27 14:44 | disposition home or self-care (01) | DRG 154 ==
LOC: ER 23:01 → ERHOLD 12-24 04:28 → 4TH 12-24 07:18
PROVIDERS: ADMIT Hospitalist; ATTEND Family Medicine
PROC: 5A1D70Z Performance of Urinary Filtration, Intermittent, Less than 6 Hours Per Day (ICD-10-PCS; principal; 2020-12-24)
DX: K11.20 Sialoadenitis, unspecified (principal); N18.6 End stage renal disease; I13.2 Hypertensive heart and chronic kidney disease with heart failure and with stage 5 chronic kidney disease, or end stage renal disease; E44.0 Moderate protein-calorie malnutrition; N30.00 Acute cystitis without hematuria; I50.32 Chronic diastolic (congestive) heart failure; J44.9 Chronic obstructive pulmonary disease, unspecified; E03.9 Hypothyroidism, unspecified; D63.1 Anemia in chronic kidney disease; H66.92 Otitis media, unspecified, left ear; E83.42 Hypomagnesemia; F41.8 Other specified anxiety disorders; K59.00 Constipation, unspecified; E87.8 Other disorders of electrolyte and fluid balance, not elsewhere classified; G47.33 Obstructive sleep apnea (adult) (pediatric); K21.9 Gastro-esophageal reflux disease without esophagitis; Z88.1 Allergy status to other antibiotic agents; Z88.8 Allergy status to other drugs, medicaments and biological substances; Z90.49 Acquired absence of other specified parts of digestive tract; Z99.2 Dependence on renal dialysis; Z68.33 Body mass index [BMI] 33.0-33.9, adult; Z90.710 Acquired absence of both cervix and uterus; Z79.890 Hormone replacement therapy; Z79.52 Long term (current) use of systemic steroids; Z79.899 Other long term (current) drug therapy; Z20.822 Contact with and (suspected) exposure to COVID-19
CPT/HCPCS: 36415; 70450; 70490; 70491; 71045; 80048; 80053; 80061; 80076; 81001; 81003; 81015; 83605; 83735; 83880; 84100; 84145; 84439; 84443; 84484; 85025; 85610; 87086; 87088; 90935; 94760; 99285; J0360; J1644; J2270; J2405; J2765; J2920; J3475; J7030; J7512; Q9967; U0003

== ENCOUNTER 2022-06-11 10:21 | Observation (INO) | payer OTHER ==
--- OUTSIDE RECORDS SUMMARY | 2022-06-11 10:27 | XMS REPORT | Continuity of Care Document ---
:1940 Author Organization [facility] t Address [address] [place] [address] Care Team Providers Name Role Phone EMILY LUPE Primary Care Physician Unavailable Clarence Navarrete Attending Clinician Unavailable SAILAJA TAYLOR Attending Clinician Unavailable SAILAJA TAYLOR Attending Clinician Unavailable Sailaja Taylor DO Attending Clinician Doctor Unassigned, Onyx Attending Clinician Unavailable GORDON DE LA TORRE Attending Clinician Unavailable Padmini Bowman RN Attending Clinician Papo Hernandez DO Attending Clinician Foster Gama MD Attending Clinician FOSTER GAMA Attending Clinician Unavailable Arleen Hill Attending Clinician Mary Vieira MD Attending Clinician [phone] MARY VIEIRA Attending Clinician UnavailGORDON Solano Admitting Clinician Unavailable Foster Gama MD Admitting Clinician FOSTER GAMA Admitting Clinician Unavailable Dariel CESPEDES, Mary Jolly Admitting Clinician MARY VIEIRA Admitting Clinician Unavailabl e Payers Payer Name Policy Type Policy Number Effective Date Expiration Date S cindy MEDICARE PART A [id number] 1987 AND B 00:00:00 MEDICARE PART A [id number] 1987 \T\ B 00:00:00 [employer] [place] [id number] 2021 PLUS 00:00:00 CLASSIC/VALUE [employer] GOLD PLS [id number] 2020 2020 HMO 00:00:00 00:00:00 Problems Condition Condition Condition Status Onset Resolution Last Treating Co mments Source Name Details Category Date Date Treatment Clinician Date ESRD (end ESRD (end Disease Active Overview: Methodi stage stage 5-[address] renal renal 00:00: g of this Hospita disease) disease) 00 note l on on might be dialysis dialysis different from the original. Added automatic ally from request for surgery [id number] Hyponatrem Hyponatrem Disease Active U iqra ia ia 1-26 ity of 00:00: [place] 00 Medical Branch Acute-on-c Acute-on-c Disease Active U iqra hronic hronic 1-21 ity of kidney kidney 00:00: [place] injury injury 00 Medical Branch Elevated Elevated Disease Active Unive rs brain brain -09 ity of natriureti nat[place]ti [place] peptide c peptide 00 [facility] (BNP) (BNP) Branch level level Essential Essential Disease Active Uni vers hypertensi hypertensi 1-09 it y of on on 00:00: [place] 00 Medical Branch VHD VHD Disease Active Univers (valvular (valvular 08-14 ity of heart heart 00:00: [place] disease) disease) 00 Medica l Branch PRESSLEY PRESSLEY Disease Active Univers (dyspnea (dyspnea 08-14 ity of on on 00:00: [place] exertion) exertion) 00 [facility] nicole Branch Type 2 Type 2 Disease Active Univers diabetes diabetes 08-14 ity of mellitus mellitus 00:00: [place] with other with other 00 Me dical specified specified Bran ch complicati complicati on on Acute on Acute on Disease Active Unive rs chronic chronic 08-14 ity of diastolic diastolic 00:00: [place] s congestive congestive 00 Me dical heart heart Branch failure failure Morbid Morbid Disease Active Univers obesity obesity 08-14 ity of 00:00: [place] [facility] Anemia Anemia Disease Active Univers 1-09 ity of 00:00: [place] [facility] Acute Acute Disease Active Univers renal renal 08-11 ity of failure failure 00:00: [place] [facility] MAGAN (acute MAGAN (acute Disease Active U nivers kidney kidney 08-10 ity of injury) injury) 00:00: [place] [address] Medical Branch Obesity Obesity Disease Active 2015-08 Univers (BMI (BMI 2-28 ity of 30-39.9) 30-39.9) 00:00: [place] [address] Medical Branch Hypertensi Hypertensi Disease Active M ethodi on on [facility]ospita [facility] Disease of Disease of Disease Active M ethodi thyroid thyroid st gland gland Hospita l Chronic Chronic Disease Active Methodi kidney kidney st disease disease Hospita l COPD COPD Disease Active Methodi (chronic (chronic st obstructiv obstructiv Ho spita e e l pulmonary pulmonary disease) disease) Rheumatoid Rheumatoid Disease Active M ethodi arthritis arthritis st [facility]ospita l Wears Wears Disease Active Methodi glasses glasses st Hospita l Full Full Disease Active Overview: Method i dentures dentures Formattin st g of this Hospita note l might be different from the original. UPPER Wears Wears Disease Active Overview: Method i partial partial Formattin st dentures dentures g of this Hos gina note l might be different from the original. BOTTOM. Hearing Hearing Disease Active Methodi aid worn aid worn st Hospita l Allergies, Adverse Reactions, Alerts Allergy Allergy Status Severity Reaction(s) Onset Inactive Treating Comm ents Source Name Type Date Date Clinician Baclofen Propensi Active Hallucinatio Methodi ty to ns 7-20 st adverse 00:00: Hospita reaction 00 l s to drug Prochlor Propensi Active Hallucinatio Methodi perazine ty to ns 7-20 st adverse 00:00: Hospita reaction 00 l s to drug Phenothi DA Active U 2020-1 [facility] azines 2-10 Clear 00:00: [place] 00 [facility] Thioxant DA Active U 2020-1 [facility] henes 2-10 Clear 00:00: Jiang 00 [facility] prochlor DA Active U 2020-1 [facility] perazine 2-10 Clear 00:00: Jiang 00 [facility] baclofen DA Active U 2020-1 [facility] 2-10 Clear 00:00: Jiang 00 [facility] hydralaz DA Active U 2020-1 [facility] ine 2-10 Clear 00:00: Jiang 00 [facility] ondanset DA Active U 2020-1 [facility] ramona 2-10 Clear 00:00: Jiang 00 [facility] vancomyc DA Active U 2020-1 [facility] in 2-10 Clear 00:00: Jiang 00 [facility] cefepime DA Active U 2020-1 [facility] 2-10 Clear 00:00: [place] 00 [facility] cefepime DA Active U UNKNOWN 2020-1 [facility] 2-10 Clear 00:00: [place] 00 [facility] Phenothi DA Active U UNKNOWN 2020-1 [facility] azines 2-10 Clear 00:00: [place] 00 [facility] Thioxant DA Active U UNKNOWN 2020-1 [facility] henes 2-10 Clear 00:00: Jiang 00 [facility] prochlor DA Active U UNKNOWN 2020-1 [facility] perazine 2-10 Clear 00:00: Jiang 00 [facility] baclofen DA Active U UNKNOWN 2020-1 [facility] 2-10 Clear 00:00: [place] 00 [facility] hydralaz DA Active U UNKNOWN 2020-1 [facility] ine 2-10 Clear 00:00: [place] 00 [facility] ondanset DA Active U UNKNOWN 2020-1 [facility] ramona 2-10 Clear 00:00: [place] 00 [facility] vancomyc DA Active U UNKNOWN 2020-1 [facility] in 2-10 Clear 00:00: [place] 00 [facility] Baclofen Propensi Active Unknown - 2016- Uni vers ty to See comments 2-27 ity of adverse 00:00: [place] reaction 00 Medical s Branch Cefepime Propensi Active Unknown - 2016 Uni vers ty to See comments 2-27 ity of adverse 00:00: [place] reaction 00 Medical s Branch Prochlor Propensi Active Unknown - 2015-08 Uni vers perazine ty to See comments 2-27 it y of adverse 00:00: [place] reaction 00 Medical s Branch Phenothi Propensi Active Unknown - 2015-08 Uni vers azines ty to See comments 2-27 ity of adverse 00:00: [place] reaction 00 Medical s Branch Thioxant Propensi Active Unknown - 2015-08 Uni vers henes ty to See comments 2-27 ity of adverse 00:00: [place] reaction 00 Medical s Branch BACLOFEN DRUG Active Unknown-Cmnt 2015- Un rodriguez INGREDI 2-27 ity of 00:00: [place] 00 Medical Branch CEFEPIME DRUG Active Unknown-Cmnt 2015- Un [place] INGREDI 2-27 ity of 00:00: [place] 00 Medical Branch PHENOTHI Drug Active Unknown-Cmnt 2015-08 [facility] AZINES Class 2-27 ity of 00:00: [place] 00 Medical Branch PROCHLOR DRUG Active Unknown-Cmnt 2015- Un [place] PERAZINE INGREDI 2-27 ity of 00:00: [place] 00 Medical Branch THIOXANT Drug Active Unknown-Cmnt 2015-08 Un [facility] HENES Class 2-27 ity of 00:00: [place] 00 Medical Branch Phenothi Propensi Active Unknown - 2015-08 Uni vers azines ty to See comments 2-27 ity of adverse 00:00: [place] reaction 00 Medical s Branch iodine DA Active U 2009-0 [facility] 6-15 Clear 00:00: [place] 00 [facility] prochlor DA Active U 2009-0 [facility] perazine 6-15 Clear 00:00: [place] 00 [facility] ciproflo DA Active U 2009-0 [facility] xacin 6-15 Clear 00:00: [place] 00 [facility] Not DA Active U 2009-0 [facility] Converte 6-15 Clear d 80. 00:00: Jiang See 00 [facility] Social History Social Habit Start Date Stop Date Quantity Comments Source History [facility] Drinks History [facility] Exposure to 2022-05-22 2022-06-01 Not sure [facility]-CoV-2 00:00:00 10:01:00 [facility] (event) Branch Tobacco use and 2022-03-02 2022-03-02 Smokeless tobacco Un iversity of exposure 00:00:00 00:00:00 non-user [facility] Alcohol intake 2021-02-25 2021-02-25 Lifetime [facility] 00:00:00 00:00:00 non-drinker Hospital (finding) History [facility] 2021-02-22 2021-02-22 1 [facility] Frequency 00:00:00 00:00:00 Hospita l History SDNE 2020-08-11 2020-08-11 5 University o f Financial 00:00:00 00:00:00 [place] [facility] History SDOH Food 2020-08-11 2020-08-11 1 Univers ity of Worry 00:00:00 00:00:00 [facility] Branch History SDNE Food 2020-08-11 2020-08-11 1 Univers ity of Scarcity 00:00:00 00:00:00 [place] [facility] History [facility] 2020-08-11 2020-08-11 2 University o f Transport Med 00:00:00 00:00:00 [place] Medic al Branch History [facility] 2020-08-11 2020-08-11 2 [place] o f Transport Non-Med 00:00:00 00:00:00 [facility] edical Branch Sex [birth year] [facility] 00:00:00 00:00:00 Hospital Smoking Status Start Date Stop Date Source Never smoked tobacco [facility] [place] [place] Medications Ordered Filled Start Stop Current Ordering Indication Dosage Frequency Signature Comments Components Source Medication Medication Date Date Medication? Clinician (SIG) Name Name fluticasone 2021-08 Yes [id number] 1{puff} Inhale 1 Univers -umeclidin- 0-27 Puff ity of vilanter 00:00: daily. [place] [address] Medical ELLIP) Branch 100-62.5-25 mcg DsDv fluticasone 2021-08 Yes [id number] 1{puff} Inhale 1 Univers -umeclidin- 0-27 Puff ity of vilanter 00:00: daily. [place] [address] Medical ELLIP) Branch 100-62.5-25 mcg DsDv albuterol 2021-08 Yes [id number] 2.5mg Inhale 3 Univers 2.5 mg /3 0-14 mL every 4 ity of mL (0.083 00:00: (four) [place] %) 00 hours as Medical nebulizer needed for Bran ch solution Wheezing or Shortness of Breath. albuterol 2021-08 Yes [id number] 2{puff} Inhale 2 Univers 90 0-14 Puffs ity of mcg/actuati 00:00: every 4 [place] as on inhaler 00 (four) Medical hours as Branch needed for Wheezing or Shortness of Breath. albuterol 2021-08 Yes [id number] 2.5mg Inhale 3 Univers 2.5 mg /3 0-14 mL every 4 ity of mL (0.083 00:00: (four) [place] %) 00 hours as Medical nebulizer needed for Bran ch solution Wheezing or Shortness of Breath. albuterol 2021-08 Yes [id number] 2{puff} Inhale 2 Univers 90 0-14 Puffs ity of mcg/actuati 00:00: every 4 [place] as on inhaler 00 (four) Medical hours as Branch needed for Wheezing or Shortness of Breath. albuterol 2021-08 Yes [id number] 2.5mg Inhale 3 Univers 2.5 mg /3 0-14 mL every 4 ity of mL (0.083 00:00: (four) [place] %) 00 hours as Medical nebulizer needed for Bran ch solution Wheezing or Shortness of Breath. albuterol 2021-08 Yes [id number] 2{puff} Inhale 2 Univers 90 0-14 Puffs ity of mcg/actuati 00:00: every 4 [place] as on inhaler 00 (four) Medical hours as Branch needed for Wheezing or Shortness of Breath. predniSONE 2021-0 Yes [id number] 40mg Take 2 U nivers 20 mg 9-09 tablets by ity of tablet 00:00: mouth in [place] 00 the Medical morning. Branch doxycycline 2021-0 Yes [id number] 100mg Take 1 Univers 100 mg EC 9-09 tablet by ity o f tablet 00:00: mouth in [place] 00 the Medical morning Branch and 1 tablet in the evening. predniSONE 2021-0 Yes [id number] 40mg Take 2 U nivers 20 mg 9-09 tablets by ity of tablet 00:00: mouth in [place] 00 the Medical morning. Branch doxycycline 2021-0 Yes [id number] 100mg Take 1 Univers 100 mg EC 9-09 tablet by ity o f tablet 00:00: mouth in [place] 00 the Medical morning Branch and 1 tablet in the evening. predniSONE 2-0 Yes [id number] 40mg Take 2 U nivers 20 mg 9-09 tablets by ity of tablet 00:00: mouth in [place] 00 the Medical morning. Branch doxycycline 2021-0 Yes [id number] 100mg Take 1 Univers 100 mg EC 9-09 tablet by ity o f tablet 00:00: mouth in [place] 00 the Medical morning Branch and 1 tablet in the evening. predniSONE 2022-0 Yes [id number] 40mg Take 2 U nivers 20 mg 9-09 tablets by ity of tablet 00:00: mouth in [place] 00 the Medical morning. Branch doxycycline 2021-0 Yes [id number] 100mg Take 1 Univers 100 mg EC 9-09 tablet by ity o f tablet 00:00: mouth in [place] 00 the Medical morning Branch and 1 tablet in the evening. oxybutynin 2021-0 Yes 5mg Take 5 mg Un rodr[facility] chloride 5 7-28 by mouth 3 ity of mg tablet 09:03: (three) [place] [address] times Medical daily. Branch levothyroxi 0 Yes 112ug Take 112 U nivers ne 112 mcg 7-28 mcg by ity of tablet 09:03: mouth [place] [address] every Medical morning. Branch busPIRone 2021-0 Yes 10mg Take 10 mg Un [place] 10 mg 7-28 by mouth ity of tablet 09:03: daily. [address] Branch dextrometho 2021-0 Yes 1{tbl} Take 1 Un rodr[facility]z rphan-guaif 7-28 tablet by ity of enesin 09:03: mouth 2 [place] 30-600 mg 11 (two) Medical per tablet times Branch daily. isosorbide 2021-0 Yes 60mg Take 60 mg U nivers mononitrate 7-28 by mouth ity of 60 mg 24 hr 09:03: [place] [address] [place] [address] Branch ondansetron 2021-0 Yes 4mg Take 4 mg U nivers 4 mg tablet 7-28 by mouth ity of 09:03: every 8 [place] [address] (eight) Medical hours as Branch needed. pantoprazol 2021-0 Yes 40mg Take 40 mg Univers e 40 mg EC 7-28 by mouth ity o f tablet 09:03: daily. [place] 11 Medical Branch oxybutynin 2022-0 Yes 5mg Take 5 mg Un [place] chloride 5 7-28 by mouth 3 ity of mg tablet 09:03: (three) [place] [address] times Medical daily. Branch levothyroxi 2021-0 Yes 112ug Take 112 U nivers ne 112 mcg 7-28 mcg by ity of tablet 09:03: mouth [place] [address] every Medical morning. Branch busPIRone 2-0 Yes 10mg Take 10 mg Un ro[place] 10 mg 7-28 by mouth ity of tablet 09:03: daily. [place] [address] Medical Branch dextrometho 2021-0 Yes 1{tbl} Take 1 Un [place] rphan-guaif 7-28 tablet by ity of enesin 09:03: mouth 2 [place] 30-600 mg 11 (two) Medical per tablet times Branch daily. isosorbide 2-0 Yes 60mg Take 60 mg U nivers mononitrate 7-28 by mouth ity of 60 mg 24 hr 09:03: [place] [address] Medical Branch ondansetron 2021-0 Yes 4mg Take 4 mg U nivers 4 mg tablet 7-28 by mouth ity of 09:03: every 8 [place] [address] (eight) Medical hours as Branch needed. pantoprazol 2021-0 Yes 40mg Take 40 mg Univers e 40 mg EC 7-28 by mouth ity o f tablet 09:03: daily. [address] Branch oxybutynin 2021-0 Yes 5mg Take 5 mg Un [place] chloride 5 7-28 by mouth 3 ity of mg tablet 09:03: (three) [place] [address] times Medical daily. Branch levothyroxi 2021-0 Yes 112ug Take 112 U nivers ne 112 mcg 7-28 mcg by ity of tablet 09:03: mouth [place] [address] every Medical morning. Branch busPIRone 2-0 Yes 10mg Take 10 mg Un [place] 10 mg 7-28 by mouth ity of tablet 09:03: daily. [place] [address] Medical Branch dextrometho 2021-0 Yes 1{tbl} Take 1 Un [place] rphan-guaif 7-28 tablet by ity of enesin 09:03: mouth 2 [place] 30-600 mg 11 (two) Medical per tablet times Branch daily. isosorbide 2022-0 Yes 60mg Take 60 mg U nivers mononitrate 7-28 by mouth ity of 60 mg 24 hr 09:03: [place]. [place] 11 [place] Branch ondansetron 2021-0 Yes 4mg Take 4 mg U nivers 4 mg tablet 7-28 by mouth ity of 09:03: every 8 [place] [address] (eight) Medical hours as Branch needed. pantoprazol 2022-0 Yes 40mg Take 40 mg Univers e 40 mg EC 7-28 by mouth ity o f tablet 09:03: daily. [address] Branch oxybutynin 2-0 Yes 5mg Take 5 mg Un [place] chloride 5 7-28 by mouth 3 ity of mg tablet 09:03: (three) [place] [address] times Medical daily. Branch levothyroxi 2021-0 Yes 112ug Take 112 U nivers ne 112 mcg 7-28 mcg by ity of tablet 09:03: mouth [place] [address] every Medical morning. Branch busPIRone 2021-0 Yes 10mg Take 10 mg Un [place] 10 mg 7-28 by mouth ity of tablet 09:03: daily. [address] Branch dextrometho 2021-0 Yes 1{tbl} Take 1 Un [place] rphan-guaif 7-28 tablet by ity of enesin 09:03: mouth 2 [place] 30-600 mg 11 (two) Medical per tablet times Branch daily. isosorbide 2-0 Yes 60mg Take 60 mg U nivers mononitrate 7-28 by mouth ity of 60 mg 24 hr 09:03: [place]. [place] 11 [place] Branch ondansetron 2021-0 Yes 4mg Take 4 mg U nivers 4 mg tablet 7-28 by mouth ity of 09:03: every 8 [place] [address] (eight) Medical hours as Branch needed. pantoprazol 2-0 Yes 40mg Take 40 mg Univers e 40 mg EC 7-28 by mouth ity o f tablet 09:03: daily. [address] Branch oxybutynin 2-0 Yes 5mg Take 5 mg Un [place] chloride 5 7-28 by mouth 3 ity of mg tablet 09:03: (three) [place] [address] times Medical daily. Branch levothyroxi 2021-0 Yes 112ug Take 112 U nivers ne 112 mcg 7-28 mcg by ity of tablet 09:03: mouth [place] [address] every Medical morning. Branch busPIRone 2021-0 Yes 10mg Take 10 mg Un [place] 10 mg 7-28 by mouth ity of tablet 09:03: daily. [address] Branch dextrometho 2021-0 Yes 1{tbl} Take 1 Un [place] rphan-guaif 7-28 tablet by ity of enesin 09:03: mouth 2 [place] 30-600 mg 11 (two) Medical per tablet times Branch daily. isosorbide 2021-0 Yes 60mg Take 60 mg U nivers mononitrate 7-28 by mouth ity of 60 mg 24 hr 09:03: [place]. [place] 11 [place] Branch ondansetron 2021-0 Yes 4mg Take 4 mg U nivers 4 mg tablet 7-28 by mouth ity of 09:03: every 8 [place] [address] (eight) Medical hours as Branch needed. pantoprazol 2021-0 Yes 40mg Take 40 mg Univers e 40 mg EC 7-28 by mouth ity o f tablet 09:03: daily. [address] Branch oxybutynin 2021-0 Yes 5mg Take 5 mg Un [place] chloride 5 7-28 by mouth 3 ity of mg tablet 09:03: (three) [place] [address] times Medical daily. Branch levothyroxi 2021-0 Yes 112ug Take 112 U nivers ne 112 mcg 7-28 mcg by ity of tablet 09:03: mouth [place] [address] every Medical morning. Branch busPIRone 2021-0 Yes 10mg Take 10 mg Un [place] 10 mg 7-28 by mouth ity of tablet 09:03: daily. [address] Branch dextrometho 2021-0 Yes 1{tbl} Take 1 Un [place] rphan-guaif 7-28 tablet by ity of enesin 09:03: mouth 2 [place] 30-600 mg 11 (two) Medical per tablet times Branch daily. isosorbide 2-0 Yes 60mg Take 60 mg U nivers mononitrate 7-28 by mouth ity of 60 mg 24 hr 09:03: [place]. [place] 11 [place] Branch ondansetron 2021-0 Yes 4mg Take 4 mg U nivers 4 mg tablet 7-28 by mouth ity of 09:03: every 8 [place] [address] (eight) Medical hours as Branch needed. pantoprazol 2022-0 Yes 40mg Take 40 mg Univers e 40 mg EC 7-28 by mouth ity o f tablet 09:03: daily. [address] Branch oxybutynin 2021-0 Yes 5mg Take 5 mg Un [place] chloride 5 7-28 by mouth 3 ity of mg tablet 09:03: (three) [place] [address] times Medical daily. Branch levothyroxi 2021-0 Yes 112ug Take 112 U nivers ne 112 mcg 7-28 mcg by ity of tablet 09:03: mouth [place] [address] every Medical morning. Branch busPIRone 2021-0 Yes 10mg Take 10 mg Un [place] 10 mg 7-28 by mouth ity of tablet 09:03: daily. [address] Branch dextrometho 2021-0 Yes 1{tbl} Take 1 Un [place] rphan-guaif 7-28 tablet by ity of enesin 09:03: mouth 2 [place] 30-600 mg 11 (two) Medical per tablet times Branch daily. isosorbide 2021-0 Yes 60mg Take 60 mg U nivers mononitrate 7-28 by mouth ity of 60 mg 24 hr 09:03: [place]. [place] tablet Medical Branch ondansetron 2021-0 Yes 4mg Take 4 mg U nivers 4 mg tablet 7-28 by mouth ity of 09:03: every 8 [place] [address] (eight) Medical hours as Branch needed. pantoprazol 2021-0 Yes 40mg Take 40 mg Univers e 40 mg EC 7-28 by mouth ity o f tablet 09:03: daily. [address] Branch oxybutynin 2021-0 Yes 5mg Take 5 mg Un [place] chloride 5 7-28 by mouth 3 ity of mg tablet 09:03: (three) [place] [address] times Medical daily. Branch levothyroxi 2021-0 Yes 112ug Take 112 U nivers ne 112 mcg 7-28 mcg by ity of tablet 09:03: mouth [place] [address] every Medical morning. Branch busPIRone 2021-0 Yes 10mg Take 10 mg Un [place] 10 mg 7-28 by mouth ity of tablet 09:03: daily. [place] [address] Medical Branch dextrometho 2021-0 Yes 1{tbl} Take 1 Un [place] rphan-guaif 7-28 tablet by ity of enesin 09:03: mouth 2 [place] 30-600 mg 11 (two) Medical per tablet times Branch daily. isosorbide 2022-0 Yes 60mg Take 60 mg U nivers mononitrate 7-28 by mouth ity of 60 mg 24 hr 09:03: [place]. [place] 11 Medical Branch ondansetron 2021-0 Yes 4mg Take 4 mg U nivers 4 mg tablet 7-28 by mouth ity of 09:03: every 8 [place] [address] (eight) Medical hours as Branch needed. pantoprazol 2-0 Yes 40mg Take 40 mg Univers e 40 mg EC 7-28 by mouth ity o f tablet 09:03: daily. [address] Branch oxybutynin 2021-0 Yes 5mg Take 5 mg Un [place] chloride 5 7-28 by mouth 3 ity of mg tablet 09:03: (three) [place] [address] times Medical daily. Branch levothyroxi 2021-0 Yes 112ug Take 112 U nivers ne 112 mcg 7-28 mcg by ity of tablet 09:03: mouth [place] [address] every Medical morning. Branch busPIRone 2021-0 Yes 10mg Take 10 mg Un [place] 10 mg 7-28 by mouth ity of tablet 09:03: daily. [address] Branch dextrometho 2021-0 Yes 1{tbl} Take 1 Un [place] rphan-guaif 7-28 tablet by ity of enesin 09:03: mouth 2 [place] 30-600 mg 11 (two) Medical per tablet times Branch daily. isosorbide 2-0 Yes 60mg Take 60 mg U nivers mononitrate 7-28 by mouth ity of 60 mg 24 hr 09:03: [place]. [place] 11 [place] Branch ondansetron 2021-0 Yes 4mg Take 4 mg U nivers 4 mg tablet 7-28 by mouth ity of 09:03: every 8 [place] [address] (eight) Medical hours as Branch needed. pantoprazol 2-0 Yes 40mg Take 40 mg Univers e 40 mg EC 7-28 by mouth ity o f tablet 09:03: daily. [address] Branch oxybutynin 2-0 Yes 5mg Take 5 mg Un [place] chloride 5 7-28 by mouth 3 ity of mg tablet 09:03: (three) [place] [address] times Medical daily. Branch levothyroxi 0 Yes 112ug Take 112 U nivers ne 112 mcg 7-28 mcg by ity of tablet 09:03: mouth [place] [address] every Medical morning. Branch busPIRone 0 Yes 10mg Take 10 mg Un [place] 10 mg 7-28 by mouth ity of tablet 09:03: daily. [address] Branch dextrometho 2021-0 Yes 1{tbl} Take 1 Un [place] rphan-guaif 7-28 tablet by ity of enesin 09:03: mouth 2 [place] 30-600 mg 11 (two) Medical per tablet times Branch daily. isosorbide 2021-0 Yes 60mg Take 60 mg U nivers mononitrate 7-28 by mouth ity of 60 mg 24 hr 09:03: [place]. [place] [address] [place] [address] Branch ondansetron 2021-0 Yes 4mg Take 4 mg U nivers 4 mg tablet 7-28 by mouth ity of 09:03: every 8 [place] [address] (eight) Medical hours as Branch needed. pantoprazol 2021-0 Yes 40mg Take 40 mg Univers e 40 mg EC 7-28 by mouth ity o f tablet 09:03: daily. [address] Branch amoxicillin 2021-0 Yes [id number] 875mg Take 1 Univers 875 mg 7-28 tablet by ity of tablet 00:00: mouth in [place] [address] the Medical morning Branch and 1 tablet in the evening. amoxicillin 2021-0 Yes [id number] 875mg Take 1 Univers 875 mg 7-28 tablet by ity of tablet 00:00: mouth in [place] [address] the [facility] morning Branch and 1 tablet in the evening. amoxicillin 2021-0 Yes [id number] 875mg Take 1 Univers 875 mg 7-28 tablet by ity of tablet 00:00: mouth in [place] [address] the Medical morning Branch and 1 tablet in the evening. amoxicillin 202-0 Yes [id number] 875mg Take 1 Univers 875 mg 7-28 tablet by ity of tablet 00:00: mouth in [place] [address] the Medical morning Branch and 1 tablet in the evening. amoxicillin 2021-0 Yes [id number] 875mg Take 1 Univers 875 mg 7-28 tablet by ity of tablet 00:00: mouth in [place] [address] the [facility] morning [place] and 1 tablet in the evening. amoxicillin 2021-0 Yes [id number] 875mg Take 1 Univers 875 mg 7-28 tablet by ity of tablet 00:00: mouth in [place] 00 the Medical morning Branch and 1 tablet in the evening. amoxicillin 2021-0 Yes [id number] 875mg Take 1 Univers 875 mg 7-28 tablet by ity of tablet 00:00: mouth in [place] 00 the Medical morning Branch and 1 tablet in the evening. amoxicillin 2021-0 Yes [id number] 875mg Take 1 [facility] 875 mg 7-28 tablet by ity of tablet 00:00: mouth in [place] [id number] the Medical morning Branch and 1 tablet in the evening. albuterol 2021-0 Yes [id number] 2.5mg Inhale 3 [facility] 2.5 mg /3 2-08 mL every 4 ity of mL (0.083 00:00: ([facility]) [place] %) 00 hours as Medical nebulizer needed for Bran ch solution Wheezing or Shortness of Breath. albuterol 2021-0 Yes [id number] 2{puff} Inhale 2 [facility] 90 2-08 Puffs ity of mcg/actuati 00:00: every 4 [place] on inhaler 00 (four) Medical hours as Branch needed for Wheezing or Shortness of Breath. Nebulizer & 2021-0 Yes [id number] Use as [facility] Compressor 2-08 directed ity o f For Neb 00:: Medical Branch albuterol 2021-0 Yes [id number] 2.5mg Inhale 3 [facility] 2.5 mg /3 2-08 mL every 4 ity of mL (0.083 00:00: (chi [facility]) [place] %) 00 hours as Medical nebulizer needed for Bran ch solution Wheezing or Shortness of Breath. albuterol 2021-0 Yes [id number] 2{puff} Inhale 2 [facility] 90 2-08 Puffs ity of mcg/actuati 00:00: every 4 [place] on inhaler 00 (four) Medical hours as Branch needed for Wheezing or Shortness of Breath. Nebulizer & 2021-0 Yes [id number] Use as [facility] Compressor 2-08 directed ity o f For Neb 00:00: Medical Branch albuterol 2021-0 Yes [id number] 2.5mg Inhale 3 [facility] 2.5 mg /3 2-08 mL every 4 ity of mL (0.083 00:00: (four) [place] %) 00 hours as Medical nebulizer needed for Bran ch solution Wheezing or Shortness of Breath. albuterol 2021-0 Yes [id number] 2{puff} Inhale 2 [facility] 90 2-08 Puffs ity of mcg/actuati 00:00: every 4 [place] on inhaler 00 (four) Medical hours as Branch needed for Wheezing or Shortness of Breath. Nebulizer & 2021-0 Yes [id number] Use as [facility] Compressor 2-08 directed ity o f For Neb 00:00: Medical Branch albuterol 2021-0 Yes [id number] 2.5mg Inhale 3 [facility] 2.5 mg /3 2-08 mL every 4 ity of mL (0.083 00:00: (four) [place] %) 00 hours as Medical nebulizer needed for Bran ch solution Wheezing or Shortness of Breath. albuterol 2021-0 Yes [id number] 2{puff} Inhale 2 [facility] 90 2-08 Puffs ity of mcg/actuati 00:00: every 4 [place] on inhaler 00 (four) Medical hours as Branch needed for Wheezing or Shortness of Breath. Nebulizer & 2021-0 Yes [id number] Use as [facility] Compressor 2-08 directed ity o f For Neb 00:00: Medical Branch albuterol 2021-0 Yes [id number] 2.5mg Inhale 3 [facility] 2.5 mg /3 2-08 mL every 4 ity of mL (0.083 00:00: (four) [place] %) 00 hours as Medical nebulizer needed for Bran ch solution Wheezing or Shortness of Breath. albuterol 2021-0 Yes [id number] 2{puff} Inhale 2 [facility] 90 2-08 Puffs ity of mcg/actuati 00:00: every 4 [place] on inhaler 00 (four) Medical hours as Branch needed for Wheezing or Shortness of Breath. Nebulizer & 2021-0 Yes [id number] Use as [facility] Compressor 2-08 directed ity o f For Neb 00:00: Medical Branch albuterol 2021-0 Yes [id number] 2.5mg Inhale 3 [facility] 2.5 mg /3 2-08 mL every 4 ity of mL (0.083 00:00: (four) [place] %) 00 hours as Medical nebulizer needed for Bran ch solution Wheezing or Shortness of Breath. albuterol 0 Yes [id number] 2{puff} Inhale 2 [facility] 90 2-08 Puffs ity of mcg/actuati 00:00: every 4 [place] on inhaler 00 (four) Medical hours as Branch needed for Wheezing or Shortness of Breath. Nebulizer & 2021-0 Yes [id number] Use as [facility] Compressor 2-08 directed ity o f For Neb 00:00: Medical Branch albuterol 0 Yes [id number] 2.5mg Inhale 3 [facility] 2.5 mg /3 2-08 mL every 4 ity of mL (0.083 00:00: (four) [place] %) 00 hours as Medical nebulizer needed for Bran ch solution Wheezing or Shortness of Breath. albuterol 0 Yes [id number] 2{puff} Inhale 2 [facility] 90 2-08 Puffs ity of mcg/actuati 00:00: every 4 [place] on inhaler 00 (four) Medical hours as Branch needed for Wheezing or Shortness of Breath. Nebulizer & 2021-0 Yes [id number] Use as [facility] Compressor 2-08 directed ity o f For Neb 00:00: Medical Branch Nebulizer & 2021-0 Yes [id number] Use as [facility] Compressor 2-08 directed ity o f For Neb 00:00: Medical Branch Nebulizer & 2021-0 Yes [id number] Use as [facility] Compressor 2-08 directed ity o f For Neb 00:00: Medical Branch Nebulizer & 2021-0 Yes [id number] Use as [facility] Compressor 2-08 directed ity o f For Neb 00:00: Medical Branch albuterol 2021-0 2022- No [id number] 2.5mg Inhale 3 [facility] 2.5 mg /3 2-08 10-14 mL every 4 ity of mL (0.083 00:00: 00:00 (four) [place] %) 00 :00 hours as Medical nebulizer needed for Bran ch solution Wheezing or Shortness of Breath. albuterol 2021-0 2022- No [id number] 2{puff} Inhale 2 [facility] 90 2-08 10-14 Puffs ity of mcg/actuati 00:00: 00:00 every 4 [place] inhaler 00 :00 (four) Medical hours as Branch needed for Wheezing or Shortness of Breath. fluticasone 2020-08 Yes [id number] 1{puff} Inhale 1 Univers -umeclidin- 1-11 Puff ity of vilanter 00:00: daily. [place] ([place] [address] Medical ELLIP) Branch 100-62.5-25 mcg DsDv fluticasone 2020-08 Yes [id number] 1{puff} Inhale 1 Univers -umeclidin- 1-11 Puff ity of vilanter 00:00: daily. [place] ([place] [address] Medical ELLIPTA) Branch 100-62.5-25 mcg DsDv fluticasone 2020-08 Yes [id number] 1{puff} Inhale 1 Univers -umeclidin- 1-11 Puff ity of vilanter 00:00: daily. [place] ([place] [address] Medical ELLIPTA) Branch 100-62.5-25 mcg DsDv fluticasone 2020-08 Yes [id number] 1{puff} Inhale 1 Univers -umeclidin- 1-11 Puff ity of vilanter 00:00: daily. [place] ([place] [address] Medical ELLIPTA) Branch 100-62.5-25 mcg DsDv fluticasone 2020-08 Yes [id number] 1{puff} Inhale 1 Univers -umeclidin- 1-11 Puff ity of vilanter 00:00: daily. [place] ([place] [address] Medical ELLIPTA) Branch 100-62.5-25 mcg DsDv fluticasone 2020-08 Yes [id number] 1{puff} Inhale 1 Univers -umeclidin- 1-11 Puff ity of vilanter 00:00: daily. [place] ([place] [address] Medical ELLIPTA) Branch 100-62.5-25 mcg DsDv fluticasone 2020-08 Yes [id number] 1{puff} Inhale 1 Univers -umeclidin- 1-11 Puff ity of vilanter 00:00: daily. [place] ([place] [address] Medical ELLIPTA) Branch 100-62.5-25 mcg DsDv fluticasone 2020-08 Yes [id number] 1{puff} Inhale 1 Univers -umeclidin- 1-11 Puff ity of vilanter 00:00: daily. [place] (TRELEGY 00 Medical ELLIPTA) Branch 100-62.5-25 mcg DsDv fluticasone 2020-08- No [id number] 1{puff} Inhale 1 Univers -umeclidin- 1-11 10-27 Puff ity of vilanter 00:00: 00:00 daily. [place] (TRELEGY 00 :00 Medical ELLIPTA) Branch 100-62.5-25 mcg DsDv fluticasone 2020-08- No [id number] 1{puff} Inhale 1 Univers -umeclidin- 1-11 10-27 Puff ity of vilanter 00:00: 00:00 daily. [place] (TRELEGY 00 :00 Medical ELLIPTA) Branch 100-62.5-25 mcg DsDv albuterol Yes 2{puff} Q6H Inhale 2 M ethodi (PROAIR 9-[address] HFA) 90 09:53: every 6 Hospita mcg/actuati 01 (six) l on inhaler hours as needed. fluticasone Yes Inhale 1 [facility] -umeclidin- 9-[address] vilanter 09:53: s as Hospita (Trelegy 01 needed. l Ellipta) 100-62.5-25 mcg blister with device powder for inhalation acetaminoph Yes Take by Met hodi en (TYLENOL 04-[address] ORAL) 09:53: needed. Hospita 01 l amoxicillin Yes 1{tbl} Q.5D Take 1 [facility] -pot 04-[address] clavulanate 09:53: mouth 2 Hos gina (Augmentin) 01 (two) l 500-125 mg times a per tablet day. folic Yes Take by Methodi acid/vit B [address] complex and 09:53: Hospit a C 01 l (RENAL-BLAYNE ORAL) lidocaine-p 0 2021- No Apply Meth luz rilocaine 8-17 08-[address] (EMLA) 00:00: 04:59 as needed Hospi ta 2.5-2.5 % 00 :00 for mild l cream pain. Apply to area 30 - 45 minutes prior to dialysis treatment. atenoloL 2020-0 Yes 25mg QD Take 25 mg Met hodi (TENORMIN) 7-[address] 25 MG 00:00: daily. Hospita tablet 00 l doxazosin 2020-0 Yes Methodi (CARDURA) 4 6-11 st MG tablet 00:00: Hospita 00 l hydrALAZINE 2020-0 Yes Method i (APRESOLINE 6-09 st ) 50 MG 00:00: Hospita tablet 00 l losartan 2020-0 Yes [facility] (COZAAR) 50 5-28 st MG tablet 00:00: Hospita 00 l hydrOXYchlo 2020-0 Yes 200mg QD Take 200 M ethodi roQUINE 5-[address] (PLAQUENIL) 00:00: mouth Hospi ta 200 mg 00 daily. l tablet furosemide 0 Yes 40mg QD Take 40 mg M ethodi (LASIX) 40 5-[address] mg tablet 00:00: daily. Hospit a 00 l pantoprazol 0 Yes TWICE Metho di e 5-[address] (PROTONIX) 00:00: Hospita 40 MG EC 00 l tablet hydrOXYzine 0 Yes 1{tbl} 1 tablet. [facility] (VISTARIL) 5-04 st 25 MG 00:00: Hospita capsule 00 l metoclopram 2020-0 Yes 5mg Take 5 mg M ethodi tish 2-[address] (REGLAN) 5 00:00: Hospita MG tablet 00 l polyethylen 2020-0 Yes [id number] 17g Take 17 g Univers e glycol 2-04 by mouth 2 ity o f 3350 17 00:00: (two) [place] gram/dose 00 times Medical powder daily. Branch losartan 50 2020-0 Yes [id number] 50mg Take 1 Un rodriguez mg tablet 2-04 tablet by ity o f 00:00: mouth 2 [place] 00 (two) Medical times Branch daily. polyethylen 2020-0 Yes [id number] 17g Take 17 g Univers e glycol 2-04 by mouth 2 ity o f 3350 17 00:00: (two) [place] gram/dose 00 times Medical powder daily. Branch losartan 50 2020-0 Yes [id number] 50mg Take 1 Un [place] mg tablet 2-04 tablet by ity o f 00:00: mouth 2 00 (two) Medical times Branch daily. polyethylen 2020-0 Yes [id number] 17g Take 17 g Univers e glycol 2-04 by mouth 2 ity o f 3350 17 00:00: (two) [place] gram/dose 00 times Medical powder daily. Branch losartan 50 2020-0 Yes [id number] 50mg Take 1 Un [place] mg tablet 2-04 tablet by ity o f 00:00: mouth 2 00 (two) Medical times Branch daily. polyethylen 2020-0 Yes [id number] 17g Take 17 g Univers e glycol 2-04 by mouth 2 ity o f 3350 17 00:00: (two) [place] gram/dose 00 times Medical powder daily. Branch losartan 50 2020-0 Yes [id number] 50mg Take 1 Un [place] mg tablet 2-04 tablet by ity o f 00:00: mouth 2 00 (two) Medical times Branch daily. polyethylen 2020-0 Yes [id number] 17g Take 17 g Univers e glycol 2-04 by mouth 2 ity o f 3350 17 00:00: (two) [place] gram/dose 00 times Medical powder daily. Branch losartan 50 2020-0 Yes [id number] 50mg Take 1 Un [place] mg tablet 2-04 tablet by ity o f 00:00: mouth 2 (two) Medical times Branch daily. polyethylen 2020-0 Yes [id number] 17g Take 17 g Univers e glycol 2-04 by mouth 2 ity o f 3350 17 00:00: (two) [place] gram/dose 00 times Medical powder daily. Branch losartan 50 2020-0 Yes [id number] 50mg Take 1 Un [place] mg tablet 2-04 tablet by ity o f 00:00: mouth 2 00 (two) Medical times Branch daily. polyethylen 2020-0 Yes [id number] 17g Take 17 g Univers e glycol 2-04 by mouth 2 ity o f 3350 17 00:00: (two) [place] gram/dose 00 times Medical powder daily. Branch losartan 50 2020-0 Yes [id number] 50mg Take 1 Un [place] mg tablet 2-04 tablet by ity o f 00:00: mouth 2 00 (two) Medical times Branch daily. polyethylen 2020-0 Yes [id number] 17g Take 17 g Univers e glycol 2-04 by mouth 2 ity o f 3350 17 00:00: (two) [place] gram/dose 00 times Medical powder daily. Branch losartan 50 2020-0 Yes [id number] 50mg Take 1 Un [place] mg tablet 2-04 tablet by ity o f 00:00: mouth 2 [place] 00 (two) Medical times Branch daily. polyethylen 2020-0 Yes [id number] 17g Take 17 g Univers e glycol 2-04 by mouth 2 ity o f 3350 17 00:00: (two) [place] gram/dose 00 times Medical powder daily. Branch losartan 50 2020-0 Yes [id number] 50mg Take 1 Un [place] mg tablet 2-04 tablet by ity o f 00:00: mouth 2 [place] 00 (two) Medical times Branch daily. polyethylen 2020-0 Yes [id number] 17g Take 17 g Univers e glycol 2-04 by mouth 2 ity o f 3350 17 00:00: (two) [place] gram/dose 00 times Medical powder daily. Branch losartan 50 2020-0 Yes [id number] 50mg Take 1 Un [place] mg tablet 2-04 tablet by ity o f 00:00: mouth 2 [place] 00 (two) Medical times Branch daily. vitamin 2020-0 Yes [id number] 1000ug Take 1 U nivers B-12 1,000 1-17 tablet by ity of mcg tablet 00:00: mouth [place] 00 daily. Medical Branch calcitrioL 2020-0 Yes [id number] .5ug Take 1 Univers 0.5 mcg 1-17 capsule by ity of capsule 00:00: mouth [place] 00 daily. Medical Branch vitamin 1-0 Yes [id number] 1000ug Take 1 U nivers B-12 1,000 1-17 tablet by ity of mcg tablet 00:00: mouth [place] 00 daily. [facility] Branch calcitrioL 2020-0 Yes [id number] .5ug Take 1 Univers 0.5 mcg 1-17 capsule by ity of capsule 00:00: mouth [place] 00 daily. [facility] Branch vitamin 2020-0 Yes [id number] 1000ug Take 1 U nivers B-12 1,000 1-17 tablet by ity of mcg tablet 00:00: mouth [place] 00 daily. [facility] Branch calcitrioL 2020-0 Yes [id number] .5ug Take 1 Univers 0.5 mcg 1-17 capsule by ity of capsule 00:00: mouth [place] 00 daily. Medical Branch vitamin 2021-0 Yes [id number] 1000ug Take 1 U nivers B-12 1,000 1-17 tablet by ity of mcg tablet 00:00: mouth [place] 00 daily. Medical Branch calcitrioL 2020-0 Yes [id number] .5ug Take 1 [facility] 0.5 mcg 1-17 capsule by ity of capsule 00:00: mouth [place] 00 daily. Medical Branch vitamin 2020-0 Yes [id number] 1000ug Take 1 U nivers B-12 1,000 1-17 tablet by ity of mcg tablet 00:00: mouth [place] 00 daily. Medical Branch calcitrioL 2020-0 Yes [id number] .5ug Take 1 [facility] 0.5 mcg 1-17 capsule by ity of capsule 00:00: mouth [place] 00 daily. Medical Branch vitamin 2020-0 Yes [id number] 1000ug Take 1 U nivers B-12 1,000 1-17 tablet by ity of mcg tablet 00:00: mouth [place] 00 daily. Medical Branch calcitrioL 2020-0 Yes [id number] .5ug Take 1 [facility] 0.5 mcg 1-17 capsule by ity of capsule 00:00: mouth [place] 00 daily. Medical Branch vitamin 2020-0 Yes [id number] 1000ug Take 1 U nivers B-12 1,000 1-17 tablet by ity of mcg tablet 00:00: mouth [place] 00 daily. Medical Branch calcitrioL 2020-0 Yes [id number] .5ug Take 1 [facility] 0.5 mcg 1-17 capsule by ity of capsule 00:00: mouth [place] 00 daily. Medical Branch vitamin 1-0 Yes [id number] 1000ug Take 1 U nivers B-12 1,000 1-17 tablet by ity of mcg tablet 00:00: mouth [place] 00 daily. Medical Branch calcitrioL 2020-0 Yes [id number] .5ug Take 1 [facility] 0.5 mcg 1-17 capsule by ity of capsule 00:00: mouth [place] 00 daily. Medical Branch vitamin 2021-0 Yes [id number] 1000ug Take 1 U nivers B-12 1,000 1-17 tablet by ity of mcg tablet 00:00: mouth [place] 00 daily. Medical Branch calcitrioL 2021-0 Yes [id number] .5ug Take 1 [facility] 0.5 mcg 1-17 capsule by ity of capsule 00:00: mouth [place] 00 daily. Medical Branch vitamin 2020-0 Yes [id number] 1000ug Take 1 U nivers B-12 1,000 1-17 tablet by ity of mcg tablet 00:00: mouth [place] 00 daily. Medical Branch calcitrioL 2020-0 Yes [id number] .5ug Take 1 [facility] 0.5 mcg 1-17 capsule by ity of capsule 00:00: mouth [place] 00 daily. Medical Branch cyanocobala 2020-0 Yes 1000ug Take 1,000 [facility] min 1-[address] (VITAMIN 00:00: mouth. Hospita B-12) 1000 00 l MCG tablet ondansetron 2020-0 Yes 1{tbl} Q6H Take 1 [facility] (ZOFRAN) 4 1-[address] MG tablet 00:00: mouth Hospita 00 Every 6 l hours while awake as needed (RT). atenoloL 25 2020-0 Yes [id number] 25mg Take 1 [facility] mg tablet 1-16 tablet by ity o f 00:00: mouth 2 (two) Medical times Branch daily. doxazosin 4 2020-0 Yes [id number] 4mg Take 1 [facility] mg tablet 1-16 tablet by ity o f 00:00: mouth 2 (two) Medical times Branch daily. hydrALAZINE 2020-0 Yes [id number] 50mg Take 1 [facility] 50 mg 1-16 tablet by ity of tablet 00:00: mouth 3 (three) Medical times Branch daily. docusate 2020-0 Yes [id number] 100mg Take 1 U nivers 100 mg 1-16 capsule by ity of capsule 00:00: mouth 2 (two) Medical times Branch daily. Polyethylen 2020-0 Yes [id number] 17g Take 1 [facility] e Glycol 1-16 Packet by ity of 3350 17 00:00: mouth [place] gram powder 00 every 24 Medi nicole (twenty-fo Branch ur) hours as needed for Constipati on. sodium 2020-0 Yes [id number] 1g Take 1 Univ ers chloride 1 1-16 tablet by ity of gram tablet 00:00: mouth 4 [place] 00 (four) Medical times Branch daily. atenoloL 25 2020-0 Yes [id number] 25mg Take 1 [facility] mg tablet 1-16 tablet by ity o f 00:00: mouth (two) Medical times Branch daily. doxazosin 4 2020-0 Yes [id number] 4mg Take 1 [facility] mg tablet 1-16 tablet by ity o f 00:00: mouth (two) Medical times Branch daily. hydrALAZINE 2020-0 Yes [id number] 50mg Take 1 Univers 50 mg 1-16 tablet by ity of tablet 00:00: mouth (three) Medical times Branch daily. docusate 2020-0 Yes [id number] 100mg Take 1 U nivers 100 mg 1-16 capsule by ity of capsule 00:00: mouth (two) Medical times Branch daily. Polyethylen 2020-0 Yes [id number] 17g Take 1 Univers e Glycol 1-16 Packet by ity of 3350 17 00:00: mouth [place] gram powder 00 every 24 Medi nicole (twenty-fo Branch ur) hours as needed for Constipati on. sodium 2020-0 Yes [id number] 1g Take 1 Univ ers chloride 1 1-16 tablet by ity of gram tablet 00:00: mouth [place] 00 (four) Medical times Branch daily. atenoloL 25 2020-0 Yes [id number] 25mg Take 1 [facility] mg tablet 1-16 tablet by ity o f 00:00: mouth (two) Medical times Branch daily. doxazosin 4 2020-0 Yes [id number] 4mg Take 1 [facility] mg tablet 1-16 tablet by ity o f 00:00: mouth (two) Medical times Branch daily. hydrALAZINE 2020-0 Yes [id number] 50mg Take 1 [facility] 50 mg 1-16 tablet by ity of tablet 00:00: mouth (three) Medical times Branch daily. docusate 2020-0 Yes [id number] 100mg Take 1 U nivers 100 mg 1-16 capsule by ity of capsule 00:00: mouth (two) Medical times Branch daily. Polyethylen 2020-0 Yes [id number] 17g Take 1 [facility] e Glycol 1-16 Packet by ity of 3350 17 00:00: mouth [place] gram powder 00 every 24 Medi nicole (twenty-fo Branch ur) hours as needed for Constipati on. sodium 2020-0 Yes [id number] 1g Take 1 Univ ers chloride 1 1-16 tablet by ity of gram tablet 00:00: mouth 4 [place] 00 (four) Medical times Branch daily. atenoloL 25 2020-0 Yes [id number] 25mg Take 1 [facility] mg tablet 1-16 tablet by ity o f 00:00: mouth 2 (two) Medical times Branch daily. doxazosin 4 2020-0 Yes [id number] 4mg Take 1 [facility] mg tablet 1-16 tablet by ity o f 00:00: mouth 2 (two) Medical times Branch daily. hydrALAZINE 2020-0 Yes [id number] 50mg Take 1 [facility] 50 mg 1-16 tablet by ity of tablet 00:00: mouth (three) Medical times Branch daily. docusate 2020-0 Yes [id number] 100mg Take 1 U nivers 100 mg 1-16 capsule by ity of capsule 00:00: mouth (two) Medical times Branch daily. Polyethylen 2020-0 Yes [id number] 17g Take 1 [facility] e Glycol 1-16 Packet by ity of 3350 17 00:00: mouth [place] gram powder 00 every 24 Medi nicole (twenty-fo Branch ur) hours as needed for Constipati on. sodium 2020-0 Yes [id number] 1g Take 1 Univ ers chloride 1 1-16 tablet by ity of gram tablet 00:00: mouth 4 [place] 00 (four) Medical times Branch daily. atenoloL 25 2020-0 Yes [id number] 25mg Take 1 [facility] mg tablet 1-16 tablet by ity o f 00:00: mouth 2 (two) Medical times Branch daily. doxazosin 4 2020-0 Yes [id number] 4mg Take 1 [facility] mg tablet 1-16 tablet by ity o f 00:00: mouth 2 (two) Medical times Branch daily. hydrALAZINE 2020-0 Yes [id number] 50mg Take 1 [facility] 50 mg 1-16 tablet by ity of tablet 00:00: mouth 3 (three) Medical times Branch daily. docusate 2020-0 Yes [id number] 100mg Take 1 U nivers 100 mg 1-16 capsule by ity of capsule 00:00: mouth 2 (two) Medical times Branch daily. Polyethylen 2020-0 Yes [id number] 17g Take 1 Univers e Glycol 1-16 Packet by ity of 3350 17 00:00: mouth [place] gram powder 00 every 24 Medi nicole (twenty-fo Branch ur) hours as needed for Constipati on. sodium 2020-0 Yes [id number] 1g Take 1 Univ ers chloride 1 1-16 tablet by ity of gram tablet 00:00: mouth 4 [place] 00 (four) Medical times Branch daily. atenoloL 25 2020-0 Yes [id number] 25mg Take 1 [facility] mg tablet 1-16 tablet by ity o f 00:00: mouth 2 (two) Medical times Branch daily. doxazosin 4 2020-0 Yes [id number] 4mg Take 1 [facility] mg tablet 1-16 tablet by ity o f 00:00: mouth 2 (two) Medical times Branch daily. hydrALAZINE 2020-0 Yes [id number] 50mg Take 1 Univers 50 mg 1-16 tablet by ity of tablet 00:00: mouth 3 (three) Medical times Branch daily. docusate 2020-0 Yes [id number] 100mg Take 1 U nivers 100 mg 1-16 capsule by ity of capsule 00:00: mouth 2 (two) Medical times Branch daily. Polyethylen 2020-0 Yes [id number] 17g Take 1 Univers e Glycol 1-16 Packet by ity of 3350 17 00:00: mouth [place] gram powder 00 every 24 Medi nicole (twenty-fo Branch ur) hours as needed for Constipati on. sodium 2020-0 Yes [id number] 1g Take 1 Univ ers chloride 1 1-16 tablet by ity of gram tablet 00:00: mouth 4 [place] 00 (four) Medical times Branch daily. atenoloL 25 2020-0 Yes [id number] 25mg Take 1 [facility] mg tablet 1-16 tablet by ity o f 00:00: mouth 2 [place] 00 (two) Medical times Branch daily. doxazosin 4 2020-0 Yes [id number] 4mg Take 1 [facility] mg tablet 1-16 tablet by ity o f 00:00: mouth 2 (two) Medical times Branch daily. hydrALAZINE 2020-0 Yes [id number] 50mg Take 1 [facility] 50 mg 1-16 tablet by ity of tablet 00:00: mouth 3 (three) Medical times Branch daily. docusate 2021-0 Yes [id number] 100mg Take 1 U nivers 100 mg 1-16 capsule by ity of capsule 00:00: mouth 2 (two) Medical times Branch daily. Polyethylen 2020-0 Yes [id number] 17g Take 1 Univers e Glycol 1-16 Packet by ity of 3350 17 00:00: mouth [place] gram powder 00 every 24 Medi nicole (twenty-fo Branch ur) hours as needed for Constipati on. sodium 2020-0 Yes [id number] 1g Take 1 Univ ers chloride 1 1-16 tablet by ity of gram tablet 00:00: mouth 4 [place] 00 (four) Medical times Branch daily. atenoloL 25 2020-0 Yes [id number] 25mg Take 1 [facility] mg tablet 1-16 tablet by ity o f 00:00: mouth (two) Medical times Branch daily. doxazosin 4 2020-0 Yes [id number] 4mg Take 1 [facility] mg tablet 1-16 tablet by ity o f 00:00: mouth (two) Medical times Branch daily. hydrALAZINE 2020-0 Yes [id number] 50mg Take 1 Univers 50 mg 1-16 tablet by ity of tablet 00:00: mouth (three) Medical times Branch daily. docusate 2020-0 Yes [id number] 100mg Take 1 U nivers 100 mg 1-16 capsule by ity of capsule 00:00: mouth (two) Medical times Branch daily. Polyethylen 2020-0 Yes [id number] 17g Take 1 [facility] e Glycol 1-16 Packet by ity of 3350 17 00:00: mouth [place] gram powder 00 every 24 Medi nicole (twenty-fo Branch ur) hours as needed for Constipati on. sodium 2020-0 Yes [id number] 1g Take 1 Univ ers chloride 1 1-16 tablet by ity of gram tablet 00:00: mouth 4 [place] 00 (four) Medical times Branch daily. atenoloL 25 2020-0 Yes [id number] 25mg Take 1 [facility] mg tablet 1-16 tablet by ity o f 00:00: mouth 2 (two) Medical times Branch daily. doxazosin 4 2020-0 Yes [id number] 4mg Take 1 [facility] mg tablet 1-16 tablet by ity o f 00:00: mouth 2 (two) Medical times Branch daily. hydrALAZINE 2020-0 Yes [id number] 50mg Take 1 Univers 50 mg 1-16 tablet by ity of tablet 00:00: mouth 3 (three) Medical times Branch daily. docusate 2020-0 Yes [id number] 100mg Take 1 U nivers 100 mg 1-16 capsule by ity of capsule 00:00: mouth (two) Medical times Branch daily. Polyethylen 2020-0 Yes [id number] 17g Take 1 [facility] e Glycol 1-16 Packet by ity of 3350 17 00:00: mouth [place] gram powder 00 every 24 Medi nicole ([facility] ur) hours as needed for Constipati on. sodium 2020-0 Yes [id number] 1g Take 1 Univ ers chloride 1 1-16 tablet by ity of gram tablet 00:00: mouth (four) Medical times Branch daily. atenoloL 25 2020-0 Yes [id number] 25mg Take 1 [facility] mg tablet 1-16 tablet by ity o f 00:00: mouth (two) Medical times Branch daily. doxazosin 4 2020-0 Yes [id number] 4mg Take 1 [facility] mg tablet 1-16 tablet by ity o f 00:00: mouth (two) Medical times Branch daily. hydrALAZINE 2020-0 Yes [id number] 50mg Take 1 [facility] 50 mg 1-16 tablet by ity of tablet 00:00: mouth (three) Medical times Branch daily. docusate 2020-0 Yes [id number] 100mg Take 1 U nivers 100 mg 1-16 capsule by ity of capsule 00:00: mouth 2 (two) Medical times Branch daily. Polyethylen 2020-0 Yes [id number] 17g Take 1 Univers e Glycol 1-16 Packet by ity of 3350 17 00:00: mouth [place] gram powder 00 every 24 Medi nicole (twenty-fo Branch ur) hours as needed for Constipati on. sodium Yes [id number] 1g Take 1 Univ ers chloride 1 1-16 tablet by ity of gram tablet 00:00: mouth 4 [place] 00 (four) Medical times Branch daily. docusate Yes 1{capsu Take 1 Meth luz sodium 1-16 le} capsule by st (COLACE) 00:00: mouth. Hospita 100 MG 00 l capsule isosorbide Yes QD Take by Meth luz mononitrate 7-[address] (IMDUR) 60 00:00: daily. Hospi ta MG 24 hr 00 l tablet levothyroxi Yes DAILY AT [facility] ne 4-[address] (SYNTHROID) 00:00: Hospit a 112 mcg 00 l tablet oxybutynin Yes THREE Method i (DITROPAN) 4-[address] 5 MG tablet 00:00: DAY Hospit a 00 l ipratropium Yes 3mL Q.5D Inhale 3 [facility] -albuteroL 4-07 mL 2 (two) st (DUO-NEB) 00:00: times a Hospi ta 0.5-2.5 00 day as l mg/3 mL needed. nebulizer Immunizations Ordered Filled Immunization Date Status Comments [facility] e Immunization Name Name SARS-COV-2 COVID-19 2020-11-04 Completed Unive rsity of MODERNA VACCINE 00:00:00 [facility] SARS-COV-2 COVID-19 2020-11-04 Completed Unive rsity of MODERNA VACCINE 00:00:00 [facility] SARS-COV-2 COVID-19 2020-11-04 Completed Unive rsity of MODERNA VACCINE 00:00:00 [facility] SARS-COV-2 COVID-19 2020-11-04 Completed Unive rsity of MODERNA VACCINE 00:00:00 [facility] SARS-COV-2 COVID-19 2020-11-04 Completed Unive rsity of MODERNA VACCINE 00:00:00 [facility] SARS-COV-2 COVID-19 2020-11-04 Completed Unive rsity of MODERNA VACCINE 00:00:00 [place] [facility] SARS-COV-2 COVID-19 2020-11-04 Completed Unive rsity of MODERNA 12+ YRS 00:00:00 [place] [facility] SARS-COV-2 COVID-19 2020-11-04 Completed Unive rsity of MODERNA 12+ YRS 00:00:00 [place] [facility] SARS-COV-2 COVID-19 2020-11-04 Completed Unive rsity of MODERNA 12+ YRS 00:00:00 [place] [facility] V[facility] SARS-COV-2 COVID-19 2020-11-04 Completed Unive rsity of MODERNA 12+ YRS 00:00:00 [place] [facility] V[facility]INE [facility] MODERNA COVID-19 2020-11-04 Completed Methodis t MRNA VACCINATION 00:00:00 [facility] SARS-COV-2 COVID-19 2020-10-07 Completed Unive rsity of MODERNA VACCINE 00:00:00 [facility] ical Branch SARS-COV-2 COVID-19 2020-10-07 Completed Unive rsity of MODERNA VACCINE 00:00:00 [place] [facility] SARS-COV-2 COVID-19 2020-10-07 Completed Unive rsity of MODERNA VACCINE 00:00:00 [place] [facility] SARS-COV-2 COVID-19 2020-10-07 Completed Unive rsity of MODERNA VACCINE 00:00:00 [place] [facility] SARS-COV-2 COVID-19 2020-10-07 Completed Unive rsity of MODERNA VACCINE 00:00:00 [facility] ical Branch SARS-COV-2 COVID-19 2020-10-07 Completed Unive rsity of MODERNA VACCINE 00:00:00 [facility] ical Branch SARS-COV-2 COVID-19 2020-10-07 Completed Unive rsity of MODERNA 12+ YRS 00:00:00 [place] [facility] VACCINE [facility] SARS-COV-2 COVID-19 2020-10-07 Completed Unive rsity of MODERNA 12+ YRS 00:00:00 [place] [facility] VACCINE [facility] SARS-COV-2 COVID-19 2020-10-07 Completed Unive rsity of MODERNA 12+ YRS 00:00:00 [place] [facility] VACCINE [facility] SARS-COV-2 COVID-19 2020-10-07 Completed Unive rsity of MODERNA 12+ YRS 00:00:00 [facility] VACCINE Branch MODERNA COVID-19 2020-10-07 Completed Methodis t MRNA VACCINATION 00:00:00 [facility] Influenza High Dose 2020-04-23 Completed Unive rsity of 00:00:00 [facility] Influenza High Dose 2020-04-23 Completed Unive rsity of [place] 00:00:00 [facility] Influenza Virus 2020-04-23 Completed Universit y of Vaccine 00:00:00 [facility] Influenza High Dose 2020-04-23 Completed Unive rsity of 00:00:00 [facility] Influenza High Dose 2020-04-23 Completed Unive rsity of [place] 00:00:00 [facility] Influenza Virus 2020-04-23 Completed Universit y of Vaccine 00:00:00 [facility] Influenza High Dose 2020-04-23 Completed Unive rsity of 00:00:00 [facility] Influenza High Dose 2020-04-23 Completed Unive rsity of [place] 00:00:00 [facility] Influenza Virus 2020-04-23 Completed Universit y of Vaccine 00:00:00 [facility] Influenza High Dose 2020-04-23 Completed Unive rsity of 00:00:00 [facility] Influenza High Dose 2020-04-23 Completed Unive rsity of [place] 00:00:00 [facility] Influenza Virus 2020-04-23 Completed Universit y of Vaccine 00:00:00 [facility] Influenza High Dose 2020-04-23 Completed Unive rsity of 00:00:00 [facility] Influenza High Dose 2020-04-23 Completed Unive rsity of [place] 00:00:00 [facility] Influenza Virus 2020-04-23 Completed Universit y of Vaccine 00:00:00 [facility] Influenza High Dose 2020-04-23 Completed Unive rsity of 00:00:00 [facility] Influenza High Dose 2020-04-23 Completed Unive rsity of [place] 00:00:00 [facility] Influenza Virus 2020-04-23 Completed Universit y of Vaccine 00:00:00 [facility] Influenza High Dose 2020-04-23 Completed Unive rsity of 00:00:00 [facility] Influenza High Dose 2020-04-23 Completed Unive rsity of [place] 00:00:00 [facility] Influenza Virus 2020-04-23 Completed Universit y of Vaccine 00:00:00 [facility] Influenza High Dose 2020-04-23 Completed Unive rsity of 00:00:00 [facility] Influenza High Dose 2020-04-23 Completed Unive rsity of [place] 00:00:00 [facility] Influenza Virus 2020-04-23 Completed Universit y of Vaccine 00:00:00 [facility] Influenza High Dose 2020-04-23 Completed Unive rsity of 00:00:00 [facility] Influenza High Dose 2020-04-23 Completed Unive rsity of [place] 00:00:00 [facility] Influenza Virus 2020-04-23 Completed Universit y of Vaccine 00:00:00 [facility] Influenza High Dose 2020-04-23 Completed Unive rsity of 00:00:00 [facility] Influenza High Dose 2020-04-23 Completed Unive rsity of [place] 00:00:00 [facility] Influenza Virus 2020-04-23 Completed Universit y of Vaccine 00:00:00 [facility] Influenza High Dose 2019-05-02 Completed Unive rsity of 00:00:00 [facility] Influenza High Dose 2019-05-02 Completed Unive rsity of 00:00:00 [facility] Influenza High Dose 2019-05-02 Completed Unive rsity of 00:00:00 [facility] Influenza High Dose 2019-05-02 Completed Unive rsity of 00:00:00 [facility] Influenza High Dose 2019-05-02 Completed Unive rsity of 00:00:00 [facility] Influenza High Dose 2019-05-02 Completed Unive rsity of 00:00:00 [facility] Influenza High Dose 2019-05-02 Completed Unive rsity of 00:00:00 [facility] Influenza High Dose 2019-05-02 Completed Unive rsity of 00:00:00 [facility] Influenza High Dose 2019-05-02 Completed Unive rsity of 00:00:00 [facility] Influenza High Dose 2019-05-02 Completed Unive rsity of 00:00:00 [facility] Influenza High Dose 2016-04-20 Completed Unive rsity of 00:00:00 [facility] Influenza High Dose 2016-04-20 Completed Unive rsity of 00:00:00 [facility] Influenza High Dose 2016-04-20 Completed Unive rsity of 00:00:00 [facility] Influenza High Dose 2016-04-20 Completed Unive rsity of 00:00:00 [facility] Influenza High Dose 2016-04-20 Completed Unive rsity of 00:00:00 [facility] Influenza High Dose 2016-04-20 Completed Unive rsity of 00:00:00 [facility] Influenza High Dose 2016-04-20 Completed Unive rsity of 00:00:00 [facility] Influenza High Dose 2016-04-20 Completed Unive rsity of 00:00:00 [facility] Influenza High Dose 2016-04-20 Completed Unive rsity of 00:00:00 [facility] Influenza High Dose 2016-04-20 Completed Unive rsity of 00:00:00 [facility] Vital Signs Vital Name Observation Time Observation Value Comments Source Systolic blood 2022-06-01 15:25:00 109 mm[Hg] Univer sity of pressure [facility] Diastolic blood 2022-06-01 15:25:00 70 mm[Hg] Unive rsity of pressure [facility] Heart rate 2022-06-01 15:25:00 76 /min Universi ty of [facility] Body height 2022-06-01 15:25:00 165.1 cm Universi ty of [facility] Body weight 2022-06-01 15:25:00 74.844 kg Universi ty of [facility] BMI 2022-06-01 15:25:00 27.46 kg/m2 Universi ty [facility] Oxygen saturation in 2022-06-01 15:25:00 94 /min University Arterial blood by [facility] Pulse oximetry Branch Systolic blood 2022-03-02 14:12:00 146 mm[Hg] Univer sity of pressure [facility] Diastolic blood 2022-03-02 14:12:00 64 mm[Hg] Unive rsity of pressure [facility] Heart rate 2022-03-02 14:12:00 76 /min Universi ty of [facility] Respiratory rate 2022-03-02 14:08:00 22 /min Univ ersity of [facility] Body height 2022-03-02 14:08:00 165.1 cm Universi ty of [facility] Body weight 2022-03-02 14:08:00 86.637 kg Universi ty of [facility] BMI 2022-03-02 14:08:00 31.78 kg/m2 Universi ty of [facility] Oxygen saturation in 2022-03-02 14:08:00 95 /min University Arterial blood by [facility] Pulse oximetry Branch Procedures Procedure Date / Time Performed Performing Clinician Krish arreola XR CHEST 2 VW 2022-03-02 15:57:42 Sailaja Taylor o f [facility] Plan of Care Planned Activity Planned Date Details Comments Source Future Scheduled 2022-06-09 HEPATITIS B VACCINES Met [facility] Test 08:53:03 (1 of 3 - 3-dose series) [code = HEPATITIS B VACCINES (1 of 3 - 3-dose series)] Future Scheduled 2022-06-09 65+ [facility] VACCINE (1 - PCV) [code = 65+ PNEUMOCOCCAL VACCINE (1 - PCV)] Future Scheduled 2022-06-09 SHINGLES VACCINES (1 [facility] Test 08:53:03 of 2) [code = SHINGLES VACCINES (1 of 2)] Future Scheduled 2022-06-09 COVID-19 VACCINE ([facility] - [facility] 08[facility]53:03 Booster for Moderna series) [code = COVID-19 VACCINE (3 - Booster for Moderna series)] Future Scheduled 2022-06-09 INFLUENZA [facility]ACCINE [facility] 08:53:03 [code = INFLUENZA VACCINE] Encounters Start End Encounter Admission Attending Care Care Encounter Source Date/Time Date/Time Type Type Clinicians Facility Department ID 2021-09-08 Outpatient MARIA G CUMMINS [id number] 18:32:32 Anderso n 2021-09-08 Outpatient MARIA G CUMMINS [id number] 18:32:31 Anderso n 2021-09-08 Outpatient MARIA G CUMMINS [id number] 18:32:31 Anderso n 2020-07-16 Inpatient Raslan, [facility] OUTD [id number] [facility] 10:30:00 Clarence 58 [facility] 2022-08-03 2022-08-03 Outpatient SAILAJA SERRANO [facility] 10 [id number] Univers 10:30:00 10:30:00 SAILAJA TAYLOR i [facility] 2022-06-27 2022-06-27 Outpatient R SAILAJA TAYLOR [facility] 10 [id number] Univers 00:00:00 00:00:00 SAILAJA TAYLOR i ty of [facility] 2022-06-26 2022-06-26 Outpatient R SAILAJA TAYLOR [facility] 10 [id number] Univers 10:30:00 10:30:00 SAILAJA TAYLOR i ty of [facility] 2022-06-01 2022-06-01 Outpatient R SAILAJA TAYLOR [facility] 10 [id number] Univers 10:00:00 10:47:03 SAILAJA TAYLOR i ty of [facility] 2022-06-01 2022-06-01 [facility] [id number] Univers 10:00:00 10:47:03 Visit Shimichelle AGUIRRETON [id number] i [id number] [id number] [address] 2022-05-30 2022-05-30 Outpatient R SAILAJA TAYLOR [facility] 10 [id number] Univers 10:00:00 10:00:00 SAILAJA TAYLOR i ty of [facility] 2022-05-19 2022-05-19 [facility] [id number] Univers 00:00:00 00:00:00 Shiwan [place] [id number] i [id number] [id number] [address] 2022-03-20 2022-03-20 Telephone [facility] [id number] Univers 00:00:00 00:00:00 Shiwan [place] [id number] i [id number] [id number] Ct dic[address] 2022-03-06 2022-03-06 [facility] [id number] Univers 00:00:00 00:00:00 Shiwan [place] [id number] i [id number] [id number] Ct dical NAL [address] [place] [address] 2022-03-03 2022-03-03 Telephone Conor [facility] [id number] Univers 00:00:00 00:00:00 Shiwan [place] [id number] i [id number] [id number] [address] 2022-03-02 2022-03-02 Outpatient R SAILAJA TAYLOR [facility] 10 [id number] Univers 10:42:53 23:59:00 SAILAJA TAYLOR i ty of [facility] 2022-03-02 2022-03-02 [facility] [id number] Univers 10:42:53 23:59:00 Encounter Sailaja AGUIRRETON [id number] [id number] [id number] [facility] [address] [place] [address] 2022-03-02 2022-03-02 Office Conor [facility] [id number] Univers 09:00:00 09:30:00 Visit Shimichelle AGUIRRETON [id number] i [id number] [id number] Ct dicky NAL [address] [place] [address] 2022-03-02 2022-03-02 Outpatient R SAILAJA TAYLOR [facility] 10 [id number] Univers 09:00:00 09:00:00 SAILAJA TAYLOR i ty of [facility] 2022-03-01 2022-03-01 [facility]phone [facility] [id number] Univers 00:00:00 00:00:00 Shiwan [place] [id number] i [id number] [id number] Ct dicky NAL [address] [place] [address] 2022-02-15 2022-02-15 Telephone Conor [facility] [id number] Univers 00:00:00 00:00:00 Shiwan [place] [id number] [id number] [id number] [address] 2021-12-15 2021-12-15 Outpatient R SAILAJA TAYLOR [facility] 10 [id number] Univers 11:30:00 12:32:47 SAILAJA TAYLOR i ty of [facility] 2021-12-15 2021-12-15 Office Conor [facility] 1.2.840.114 [id number] Univers 11:30:00 12:32:47 Visit Sailaja LAWS [id number] i [id number] [id number] [address] 2021-12-15 2021-12-15 Outpatient R SAILAJA TAYLOR [facility] 10 [id number] Univers 11:30:00 11:30:00 SAILAJA TAYLOR i ty of [facility] 2021-09-27 2021-09-27 Orders Doctor ESTELLE [id number] Univers 00:00:00 00:00:00 Only Unassigned, NICOLAS 350.1.13.10 ity of [place] [facility] [id number] Steven as [id number] [address] 2021-09-13 2021-09-13 Outpatient R SAILAJA TAYLOR [facility] 10 [id number] Univers 10:30:00 11:12:20 SAILAJA TAYLOR i ty of [facility] 2021-09-13 2021-09-13 [facility] [id number] Univers 10:30:00 11:12:20 Visit Sailaja LAWS [id number] i [id number] [id number] [address] 2021-06-28 2021-06-28 Telephone Conor [facility] [id number] Univers 00:00:00 00:00:00 Sailaja LAWS 350.1.13.10 i [id number] [id number] Ct dical NAL 085 [facility] 2021-06-16 2021-06-16 Outpatient R SAILAJA TAYLOR [facility] 10 [id number] Univers 10:30:00 10:51:23 SAILAJA TAYLOR i ty of [facility] 2021-06-16 2021-06-16 Outpatient R SAILAJA TAYLOR [facility] 10 [id number] Univers 10:30:00 10:51:23 SAILAJA TAYLOR i ty of [facility] 2021-06-16 2021-06-16 [facility] 1.2.840.114 [id number] Univers 09:51:46 10:51:23 Visit Sailaja LAWS 350.1.13.10 i [id number] [id number] Ct dical NAL [address] [place] [address] 2021-06-16 2021-06-16 Orders Doctor ESTELLE 1.2.840.114 [id number] [facility] 00:00:00 00:00:00 Only Unassigned, NICOLAS [id number] ity of [place] [facility] [id number] Steven as [id number] [address] 2021-06-13 2021-06-13 Telephone Conor [facility] [id number] Univers 00:00:00 00:00:00 Sailaja LAWS 350.1.13.10 i [id number] [id number] Ct dical NAL [address] [place] [address] 2021-04-12 2021-04-12 Outpatient [facility] [id number] [place] 00:00:00 00:00:[address] 2021-03-22 2021-03-22 Outpatient [facility] [id number] [place] 00:00:00 00:00:[address] 2021-02-24 2021-02-24 Outpatient [facility] [id number] [place] 00:00:00 00:00:[address] 2021-02-22 2021-02-22 Outpatient BRITT, GORDON [facility] [id number] [place] 00:00:00 00:00:00 685 Method i 2021-02-22 2021-02-22 Outpatient BRITT, GORDON [facility] [id number] [place] 00:00:00 00:00:00 152 Method i 2021-02-22 2021-02-22 Outpatient BRITT, GORDON [facility] [id number] [place] 00:00:00 00:00:00 695 Method i 2020-12-21 2020-12-21 Outpatient BRITT, GORDON [facility] [id number] [place] 00:00:00 00:00:00 174 Method i 2020-09-10 2020-09-10 Transition Edenilson Bowman 1.2.840.114 [id number] 00:00:00 00:00:00 of Care Padmini Gifford [id number] [place] [id number] [id number] 2020-08-26 2020-09-09 [facility] Papo Hernandez [facility] 1.2.840.1 [id number] 15:48:00 18:10:00 Encounter Foster Gama [id number] [place] 4.2.7.2.686 [place] [id number] 2020-08-26 2020-09-09 Inpatient X LANETTE [facility] [id number] [facility] 15:48:00 18:10:00 FOSTER biggs [facility] 2020-08-24 2020-08-24 Edenilson Hartley 1.2.840.114 [id number] 00:00:00 00:00:00 of Care Padmini Gifford [id number] [place] [id number] [id number] 2020-08-10 2020-08-21 [facility] Arleen Sheets [facility] 1.2.840.1 [id number] 17:07:00 17:50:00 Encounter Mary Vieira [id number] [place] [id number] [place] [id number] 2020-08-10 2020-08-21 Inpatient X DARIEL [facility] [id number] [facility] 17:07:00 17:50:00 MARY biggs [facility] Results Test Description Test Time Test Comments Results Result Comments Source Novel Coronavirus 2018 Inhouse 2020-07-16 05:22:00 Test Item Value Reference Range Interpretation Comme nts Novel Coronavirus 2018 Negative Negative Posit demarco results are indicative of the Inhouse (test code = presenc e [id number] RNA, clinical COVNONPUI) correlation wit h patient [...] for the identification of SARS-CoV-2 RNA usingthe [employer] My [employer] My Heartbeats M2000 System under th e FDA Emergency UseAuthorizatio n. The testing is performed by ceferino lopezrained in the procedures for the My [employer] My [employer] My Heartbeats M2000 moleculardiagno stic SARS-CoV-2 assay in vitro. PROTHROMBIN [id number] 15:53:00 Test Item Value Reference Range Interpretation Comments PROTHROMBIN TIME 13.1 SECONDS 9.3-12.9 H PATIENT (test code = PTP) INTERNATIONAL NORMAL 1.2 0.8-1.2 N TARGET INR BY RATIO (test code = INDICATIO N Indication INR) INR1. Prophylax is of venous thrombos is 2.0 - 3.0 (orthoped ic surgery), Proph ylaxis of venous throm bosis (other than hig h-risk surgery), Treat ment of Deep Vein Thrombosis/Pulm onary Embolism, Preve ntion of systemic emb olism - Tissue heart va lves, Acute Myocardia l Infarction (to prevent systemic emboli sm), Valvular heart disease, Atrial Fibrillation, Bileaflet mecha nical valve in aortic position.2. Mec hanical prosthetic valv es (high risk), 2. 5 - 3.5 Presence of Lup us Anticoagulant o r Antiphospholipi d Antibodies, Pre vention of systemic emb olism - Acute Myocardia l Infarction (to prevent recurrent infar ct). PROTHROMBIN [id number] 15:48:00 Test Item Value Reference Range Interpretation Comments PROTHROMBIN TIME SECONDS 9.3-12.9 PATIENT (test code = PTP) INTERNATIONAL NORMAL 1.2 0.8-1.2 N TARGET INR BY RATIO (test code = INDICATIO N Indication INR) INR1. Prophylax is of venous thrombos is 2.0 - 3.0 (orthopedic surgery), Proph ylaxis of venous thrombos is (other than high-risk surgery), Treatment of De ep Vein Thrombosis/Pulm onary Embolism, Preve ntion of systemic emboli sm - Tissue heart va lves, Acute Myocardia l Infarction (to prevent systemic emboli sm), Valvular heart disease, Atrial Fibrilla tion, Bileaflet mecha nical valve in aortic position.2. Mec hanical prosthetic valv es (high risk), 2.5 - 3. 5 Presence of Lup us Anticoagulant o r Antiphospholipi d Antibodies, Pre vention of systemic emb olism - Acute Myocardia l Infarction (to prevent recurrent infar ct). BASIC METABOLIC [id number] 15:45:00 Test Item Value Reference Range Interpretation [...] 9.1 mg/dL 8.0-10.5 N CA) CBC W/AUTO [id number] 15:36:00 Test Item Value Reference Range Interpretation [...]
[2022-06-11 11:46] LABS: Absolute Lymphocytes (CBC) 1.1 K/uL (0.7-4.9); Hematocrit 28.9 % (36.0-45.0); Lymphocytes % 14.2 % (15.3-44.8); MCV 97.8 fL (80-100); MPV 9.2 fL (7.6-11.3); RBC Red Blood Cell Count 2.96 M/uL (3.86-4.86)
--- NOTE | 2022-06-11 12:02 | RAD REPORT ---
EXAM DESCRIPTION: CT - Abdomen Pelvis Wo Contrast - 06/11/2022 11:53 am CLINICAL HISTORY: Abdominal pain. nausea, vomiting, diarrhea COMPARISON: Abdomen Pelvis Wo Contrast dated 10/05/2020 TECHNIQUE: CT imaging of the abdomen and pelvis was performed without contrast. Solid organ, bowel a nd vascular assessment is limited due to lack of IV and oral contrast. All CT scans are performed using dose optimization technique as appropriate and may include automated exposure control or mA/KV adjustment according to patient size. FINDINGS: The lower lung sales are clear.Moderate to large hiatal hernia. The liver, spleen, pancreas, adrenal glands and kidneys are within normal limits for a limited non-co ntrast examination. No bowel obstruction, free air, free fluid or abscess. Sigmoid diverticulosis without diverticulitis . The appendix is not identified as a discrete structure, however, no secondary findings of appendici tis are identified. Chronic deformity of the left hip. Moderate lumbar degenerative changes. IMPRESSION: No acute intra-abdominal or pelvic findings. Moderate hiatal hernia. Sigmoid diverticulosis without diverticulitis. A limited non-contrast examination was performed as detailed.
[2022-06-11 12:25] LABS: Albumin 2.8 g/dL (3.4-5.0); Bilirubin Total 0.4 mg/dL (0.2-1.0); Protein, Total 6.4 g/dL (6.4-8.2)
[2022-06-11 12:27] LABS: Potassium 6.7 mmol/L (3.5-5.1)
--- NOTE | 2022-06-11 13:24 | EDPHYS ---
Physician Documentation [facility] Name: Maura Harris Age: 81 yrs Sex: Female : 1940 Arrival Date: 06/11/2022 Time: 10:26 Bed External Waiting Private MD: ED Physician Giovanny Wilkins HPI: 06/11 11:14 This 81 yrs old Female presents to ER via Wheelchair with complaints of Abdominal Pain, ms3 Vomiting/Diarrhea, Shoulder Pain. 11:14 The patient presents to the emergency department with nausea, vomiting, diarrhea, ms3 abdominal pain. Onset: The symptoms/episode began/occurred 3 day(s) ago. Possible causes: unknown. The symptoms are aggravated by nothing. The symptoms are alleviated by nothing. Associated signs and symptoms: Pertinent positives: abdominal pain, diarrhea, nausea, vomiting, Pertinent negatives: fever. Severity of symptoms: At their worst the symptoms were moderate in the emergency department the symptoms are unchanged Pain is currently a 7 / 10. Historical: - Allergies: 10:43 Baclofen; mb8 10:43 cefepime; mb8 10:43 Compazine; mb8 10:43 Demerol; mb8 10:43 Ibuprofen; mb8 10:43 Iodine; mb8 10:43 Macrobid; mb8 10:43 Ondansetron HCl; mb8 10:43 prochlorperazine Edisylate; mb8 10:43 Vancomycin; mb8 - PMHx: 10:43 COPD; GERD; Hypertension; Hypothyroidism; lymphedema; retained cholelithiasis; mb8 16:20 Kidney disease; mb8 - Social history:: Smoking status: . ROS: 11:14 Constitutional: Negative for fever, and chills. Neck: Negative for injury, pain, and ms3 swelling, Cardiovascular: Negative for chest pain, and palpitations. Respiratory: Negative for shortness of breath, cough, wheezing, and pleuritic chest pain. 11:14 MS/Extremity: Negative for injury and deformity, Skin: Negative for injury, rash, and discoloration, Neuro: Negative for headache, weakness, numbness, tingling. 11:14 Abdomen/GI: Positive for abdominal pain, nausea, vomiting, and diarrhea. 11:14 All other systems are negative. Exam: 11:14 Constitutional: This is a well developed, well nourished patient who is awake, alert, ms3 and in no acute distress. Head/Face: Normocephalic, atraumatic. Neck: Trachea midline, no cervical lymphadenopathy. Supple, full range of motion without nuchal rigidity, or vertebral point tenderness. No Meningismus. Chest/axilla: Normal chest wall appearance and motion. Nontender with no deformity. Cardiovascular: Regular rate and rhythm with a normal S1 and S2. No gallops, murmurs, or rubs. Normal PMI, no JVD. No pulse deficits. Respiratory: Lungs have equal breath sounds bilaterally, clear to auscultation and percussion. No rales, rhonchi or wheezes noted. No increased work of breathing, no retractions or nasal flaring. Abdomen/GI: Soft, non-tender, with normal bowel sounds. No distension or tympany. No guarding or rebound. No evidence of tenderness throughout. Skin: Warm, dry with normal turgor. Normal color with no rashes, no lesions, and no evidence of cellulitis. MS/ Extremity: Pulses equal, no cyanosis. Neurovascular intact. Full, normal range of motion. 13:27 ECG was reviewed by the Attending Physician. ms3 Vital Signs: 10:42 BP 137 / 65; Pulse 67; Resp 18; Temp 97.2; Pulse Ox 95% on R/A; Pain 7/10; mb8 12:43 BP 140 / 52; Pulse 70; Resp 16; Pulse Ox 96% ; mb8 14:07 BP 143 / 60; Pulse 68; Resp 18; Pulse Ox 98% ; Pain 0/10; mb8 MDM: 11:14 Patient medically screened. ms3 11:14 Differential diagnosis: Nonspecific abd pain, gastritis, viral gastroenteritis, ms3 gastroenteritis. 13:21 Data reviewed: vital signs, nurses notes, lab test result(s), radiologic studies, and ms3 as a result, I will admit patient. Data interpreted: header up: rate is 70 beats/min, rhythm is normal sinus rhythm, regular, with no ectopy, Interpretation: normal rate, normal rhythm. Counseling: I had a detailed discussion with the patient and/or guardian regarding: the historical points, exam findings, and any diagnostic results supporting the discharge/admit diagnosis, lab results, radiology results, the need for further work-up and treatment in the hospital. ED course: Discussed case with Dr Sargent and Dr López. Dr Sargent recommends hospitalization for dialysis. Dr López accepts patient as admission. All questions answered.. 06/11 11:17 Order name: CBC with Diff; Complete Time: 12:09 ms3 06/11 11:17 Order name: CMP; Complete Time: 12:37 ms3 06/11 11:17 Order name: Lipase; Complete Time: 12:37 ms3 06/11 13:25 Order name: SARS RAPID eb 06/11 13:57 Order name: Glucose, Ancillary Testing EDMS 06/11 15:18 Order name: CBC with Automated Diff EDMS 06/11 11:17 Order name: CT Abd/Pelvis - Without Contrast; Complete Time: 12:09 ms3 06/11 13:10 Order name: EKG; Complete Time: 13:11 ms3 06/11 15:18 Order name: CBC with Automated Diff EDMS 06/11 15:18 Order name: Comprehensive Metabolic Panel EDMS 06/11 15:18 Order name: Comprehensive Metabolic Panel EDMS 06/11 11:17 Order name: IV Saline Lock; Complete Time: 11:34 ms3 06/11 11:17 Order name: Labs collected and sent; Complete Time: 11:34 ms3 06/11 13:10 Order name: EKG - Nurse/Tech; Complete Time: 13:29 ms3 06/11 15:18 Order name: CONS Physician Consult EDMS 06/11 15:18 Order name: Renal EDMS 06/11 15:23 Order name: Diet Heart Healthy; Complete Time: 15:24 mb8 EC:27 Rate is 65 beats/min. Rhythm is regular. QRS Irving is Normal. Clinical impression: ms3 junctional rhythm. Interpreted by me. Reviewed by me. Administered Medications: 13:50 Drug: Calcium Gluconate 1 grams Route: IVPB; Infused Over: 60 mins; Site: left mb8 antecubital; 15:00 Follow up: Response: No adverse reaction; IV Status: Completed infusion mb8 13:50 Drug: D50W 50 ml Route: IVP; Site: left antecubital; mb8 15:03 Follow up: Response: No adverse reaction mb8 13:50 Drug: Insulin Regular Human 10 units {Co-Signature: ph (Brie Lombardo RN).} Route: IVP; mb8 Site: left antecubital; 15:03 Follow up: Response: No adverse reaction mb8 Disposition Summary: 06/11/22 13:23 Hospitalization Ordered Hospitalization Status: Observation ms3 Provider: Madonna López ms3 Location: Telemetry/MedSurg (observation) ms3 Condition: Stable ms3 Problem: new ms3 Symptoms: are unchanged ms3 Bed/Room Type: Standard ms3 Room Assignment: 412(06/11/22 15:24) ss Diagnosis - Hyperkalemia ms3 - Anemia, unspecified ms3 - End stage renal disease ms3 Forms: - Medication Reconciliation Form ms3 - SBAR form ms3 Critical care time excluding procedures: 13:21 Critical care time: Bedside Care: 35 minutes, Consultation: 10 minutes, Family ms3 Intervention: 5 minutes. Total time: 50 minutes Signatures: Dispatcher [employer] Raeann eBckwith RN RN ss Giovanny Wilkins, DO ms3 Reyes Francis RN RN mb8 Brie Lombardo RN ph Corrections: (The following items were deleted from the chart) 15:24 13:23 ms3 ss
--- NOTE | 2022-06-11 13:24 | ER ---
Nurse's Notes [facility] Name: Maura Harris Age: 81 yrs Sex: Female : 1940 Arrival Date: 06/11/2022 Time: 10:26 Bed External Waiting [facility] MD: Diagnosis: Hyperkalemia;Anemia, unspecified;End stage renal disease Presentation: 06/11 10:42 Chief complaint: Patient states: n/v/d for a week. Coronavirus screen: Vaccine status: mb8 Patient reports receiving the 2nd dose of the covid vaccine. Ebola Screen: Patient negative for fever greater than or equal to 101.5 degrees Fahrenheit, and additional compatible Ebola Virus Disease symptoms Patient denies exposure to infectious person. Patient denies travel to an Ebola-affected area in the 21 days before illness onset. Initial Sepsis Screen: Does the patient meet any 2 criteria? No. Patient's initial sepsis screen is negative. Does the patient have a suspected source of infection? No. Patient's initial sepsis screen is negative. Risk Assessment: Do you want to hurt yourself or someone else? Patient reports no desire to harm self or others. Onset of symptoms is unknown. 10:42 Method Of Arrival: Wheelchair mb8 10:42 Acuity: ELICIA 3 mb8 Triage Assessment: 10:44 General: Appears in no apparent distress. Behavior is calm, cooperative, appropriate mb8 for age. Pain: Complains of pain in abdomen Pain currently is 7 out of 10 on a pain scale. 10:44 GI: Reports lower abdominal pain, diarrhea, nausea, vomiting. mb8 Historical: - Allergies: 10:43 Baclofen; mb8 10:43 cefepime; mb8 10:43 Compazine; mb8 10:43 Demerol; mb8 10:43 Ibuprofen; mb8 10:43 Iodine; mb8 10:43 Macrobid; mb8 10:43 Ondansetron HCl; mb8 10:43 prochlorperazine Edisylate; mb8 10:43 Vancomycin; mb8 - PMHx: 10:43 COPD; GERD; Hypertension; Hypothyroidism; lymphedema; retained cholelithiasis; mb8 16:20 Kidney disease; mb8 - Social history:: Smoking status: . Screenin:45 Abuse screen: Denies threats or abuse. Denies injuries from another. Nutritional mb8 screening: No deficits noted. Tuberculosis screening: No symptoms or risk factors identified. Fall Risk Fall in past 12 months (25 points). Secondary diagnosis (15 points) No IV (0 pts). Ambulatory Aid- Crutches/Cane/Walker (15 pts). Gait- Weak (10 pts.). Mental Status- Oriented to own ability (0 pts). Total Mcallister Fall Scale indicates High Risk Score (45 or more points). Fall prevention measures have been instituted. Side Rails Up X 2 Frequent Obs/Assessments Occuring Family Present and informed to notify staff if the need to leave the bedside As available patient and family educated on Fall Prevention Program and Strategies. Assessment: 10:45 General: see triage assessment. mb8 12:20 Reassessment: Patient and/or family updated on plan of care and expected duration. Pain mb8 level reassessed. Patient is alert, oriented x 3, equal unlabored respirations, skin warm/dry/pink. 15:28 General: Report attempted x1. mb8 16:21 General: Report attempted x2. mb8 17:13 General: Patient still in dialysis. mb8 Vital Signs: 10:42 BP 137 / 65; Pulse 67; Resp 18; Temp 97.2; Pulse Ox 95% on R/A; Pain 7/10; mb8 12:43 BP 140 / 52; Pulse 70; Resp 16; Pulse Ox 96% ; mb8 14:07 BP 143 / 60; Pulse 68; Resp 18; Pulse Ox 98% ; Pain 0/10; mb8 Vitals: 14:07 Cardiac Rhythm Assessment Sinus rhythm. mb8 ED Course: 10:26 Patient arrived in ED. mr 10:37 Giovanny Wilkins DO is Attending Physician. ms3 10:42 Reyes Francis, HADLEY is Primary Nurse. mb8 10:43 Triage completed. mb8 10:45 Arm band placed on. mb8 10:45 Patient has correct armband on for positive identification. Bed in low position. Call mb8 light in reach. Side rails up X2. Client placed on continuous cardiac and pulse oximetry monitoring. NIBP monitoring applied. 10:45 No provider procedures requiring assistance completed. mb8 11:54 CT Abd/Pelvis - Without Contrast In Process Unspecified. EDMS 13:23 Madonna López MD is Hospitalizing Provider. ms3 13:41 SARS RAPID Sent. zm 15:10 to dialysis. mb8 Administered Medications: 13:50 Drug: Calcium Gluconate 1 grams Route: IVPB; Infused Over: 60 mins; Site: left mb8 antecubital; 15:00 Follow up: Response: No adverse reaction; IV Status: Completed infusion mb8 13:50 Drug: D50W 50 ml Route: IVP; Site: left antecubital; mb8 15:03 Follow up: Response: No adverse reaction mb8 13:50 Drug: Insulin Regular Human 10 units {Co-Signature: ph (Brie Lombardo RN).} Route: IVP; mb8 Site: left antecubital; 15:03 Follow up: Response: No adverse reaction mb8 Medication: 10:45 VIS not applicable for this client. mb8 Outcome: 13:23 Decision to Hospitalize by Provider. ms3 17:16 Admitted to Med/surg via stretcher, room 412, Other patient in dialysis, REport given mb8 to 4th floor rn. 17:17 Patient left the ED. mb8 Signatures: Dispatcher [employer] Maura Roach Marcus, DO DO ms3 Yuki Davis Michael RN RN mb8 Brie Lombardo RN ph
--- NOTE | 2022-06-11 13:33 | P.PN ---
Brief Renal note: Dr. Guerra on-call for [facility], emergent HD orders for missed treatment and hyperkalemia placed on her behalf. She has communicated this to the on-call tiler's assistant, Rom.
[2022-06-11] MEDS ORDERED: D10W 250 ML IV ONE (13:41)
[2022-06-11] MEDS ORDERED: INSULIN -REGULAR HUMAN 50 UNIT/0.5 ML ML ONE (13:41)
[2022-06-11] MEDS ORDERED: CALCIUM GLUCONATE 1 GM IVPB 1 GM/50 ML BAG IV ONE (13:41)
[2022-06-11 13:54] LABS: SARS-CoV-2 Antigen Rapid Res Negative (Negative)
[2022-06-11] MEDS ORDERED: ACETAMINOPHEN 500 MG TAB PO PRN (15:14)
[2022-06-11] MEDS ORDERED: ONDANSETRON 4 MG/2 ML VIAL IV PRN (15:14)
[2022-06-11] MEDS ORDERED: MORPHINE 2 MG/ML SYR IV PRN (15:14)
[2022-06-11] MEDS ORDERED: NA CHLORIDE 0.9% 1,000 ML IV SCH (16:00)
--- NOTE | 2022-06-11 16:10 | P.HP ---
Certification for Inpatient Patient admitted to: Observation With expected LOS: <2 Midnights Patient will require the following post-hospital care: None Practitioner: I am a practitioner with admitting privileges, knowledge of patient current condition, hospital course, and medical plan of care. Services: Services provided to patient in accordance with Admission requirements found in Title 42 Section 412.3 of the Code of Federal Regulations Patient History Date of Service: 06/11/22 Reason for admission: Intractable nausea and vomiting; hyperkalemia; ESRD History of Present Illness: Patient is an 81-year-old female who comes in the hospital with abdominal pain. She is also been having intractable nausea and vomiting. She is also been having some diarrhea. She came to the hospital for further evaluation. She goes to dialysis on Sunday. She has been compliant with her dialysis sessions. She comes into the emergency room with hyperkalemia. Her CT of the abdomen and pelvis did not reveal any significant abnormalities. We did speak with nephrology and they will dialyze her today. She has a fistula catheter, use. She also will get her electrolytes rechecked later on today. We will reassess her nausea and vomiting after hemodialysis. We will get stool studies as well. She takes a host of medications. These will need to be reviewed. We are waiting on medication reconciliation to be completed. At this time, patient will be admitted for observation. Allergies baclofen Allergy (Intermediate, Verified 06/08/22 13:00) Shortness of breath prochlorperazine [From Compazine] Allergy (Intermediate, Verified 06/08/22 13:00) "out of it" Home Medications: Levothyroxine [Synthroid*] 112 mcg PO [id number] #30 tab 11/17/17 Oxybutynin Chloride 5 mg PO TID #60 tablet 11/17/17 Hydralazine HCl [Apresoline] 1 tab PO BID 12/26/17 Tramadol HCl/Acetaminophen [Ultracet Tablet] 1 tab PO DAILYPRN PRN 12/26/17 Acetaminophen [Tylenol Extra Strength] 500 mg PO Q6H PRN 12/24/20 Atenolol [Tenormin] 25 mg PO BID 12/24/20 Doxazosin Mesylate 4 mg PO BID 12/24/20 Hydroxychloroquine [Plaquenil*] 400 mg PO DAILY 12/24/20 Isosorbide Mononitrate [Isosorbide Mononitrate ER] 60 mg PO DAILY 12/24/20 Losartan Potassium [Cozaar*] 50 mg PO BID 12/24/20 Mecobalamin [B12 Active] 1,000 mcg PO DAILY 12/24/20 Metoclopramide [Reglan*] 5 mg PO QID PRN 12/24/20 Pantoprazole [Protonix Tab*] 40 mg PO BID 12/24/20 hydrOXYzine pamoate [Hydroxyzine Pamoate] 1 tab PO BID PRN 12/24/20 Nepro Shake [Nepro*] 237 ml PO TID #60 can 12/25/20 predniSONE [Deltasone] 20 mg PO BID #11 tab 12/25/20 Albuterol Inhaler [Ventolin Inhaler*] DAILYPRN PRN 06/08/22 - Past Medical/Surgical History Diabetic: No -: COPD -: HTN -: GERD -: Hypothyroidism -: CHF, diastolic dysfunction -: Chronic kidney disease -: Right atrophic kidney -: Lymphedema -: cholecystectomy -: appendectomy -: hysterectomy -: tonsillectomy -: L hip sx -: x2 abdominal hernia repairs -: right arm sx -: right ankle sx Psychosocial/ Personal History: The patient is . She is currently at a skilled facility - Family History Father Notes: brain aneurysm Mother Notes: aortic aneurysm Sister Medical History: Heart disease, Lung disease Notes: COPD, Heart problems, gallstones Brother Medical History: Lung disease Notes: asthma - Social History Smoking Status: Former smoker Alcohol use: No CD- Drugs: No Caffeine use: Yes Review of Systems 10-point ROS is otherwise unremarkable Physical Examination - Vital Signs Temperature: 98 F Blood Pressure: 137/88 Pulse: 89 Respirations: 18 Pulse Ox (%): 96 - Physical Exam General: Alert, In no apparent distress, Oriented x3 HEENT: Atraumatic, PERRLA, Mucous membr. moist/pink, EOMI, Sclerae nonicteric Neck: Supple, 2+ carotid pulse no bruit, No LAD, Without JVD or thyroid abnormality Respiratory: Clear to auscultation bilaterally, Normal air movement Cardiovascular: Regular rate/rhythm, Normal S1 S2, Systolic murmur Gastrointestinal: Normal bowel sounds, Soft and benign, Non-distended, No rebound, No guarding, Tenderness Musculoskeletal: No clubbing, No swelling, No tenderness Integumentary: No rashes Neurological: Normal speech, Normal tone, Sensation intact, Cranial nerves 3-12 intact, Normal affect, Abnormal gait, Abnormal strength Lymphatics: No axilla or inguinal lymphadenopathy - Studies Laboratory Data (last 24 hrs) 06/11/22 11:29: Sodium 131 L, Potassium 6.7 H*, BUN 95 H, Creatinine 6.89 H*, Glucose 131 H, Total Bilirubin 0.4, AST 18, ALT 16, Alkaline Phosphatase 85, Lipase 130 06/11/22 11:29: WBC 7.50, Hgb 9.5 L, Hct 28.9 L, Plt Count 104 L Assessment & Plan - Problems (Diagnosis) (1) Hyperkalemia Current Visit: Yes Status: Acute (2) Intractable nausea and vomiting Current Visit: Yes Status: Acute (3) Diarrhea Current Visit: Yes Status: Acute (4) Asthma Onset Date: 11/12/17 Current Visit: No Status: Acute (5) COPD (chronic obstructive pulmonary disease) Onset Date: 12/26/17 Current Visit: No Status: Chronic Qualifiers: COPD type: unspecified COPD Qualified Code(s): J44.9 - Chronic obstructive pulmonary disease, unspecified (6) Depression with anxiety Current Visit: No Status: Chronic (7) Essential (primary) hypertension Onset Date: 11/12/17 Current Visit: No Status: Chronic (8) GERD (gastroesophageal reflux disease) Current Visit: No Status: Chronic Qualifiers: Esophagitis presence: esophagitis presence not specified Qualified Code(s): K21.9 - Gastro-esophageal reflux disease without esophagitis (9) Hypertension Onset Date: 12/26/17 Current Visit: No Status: Chronic Qualifiers: Hypertension type: essential hypertension (10) Hypothyroidism Onset Date: 12/26/17 Current Visit: No Status: Chronic Qualifiers: Hypothyroidism type: unspecified (11) BLANCO (obstructive sleep apnea) Onset Date: 11/12/17 Current Visit: No Status: Chronic (12) Urinary incontinence Current Visit: No Status: Chronic Qualifiers: Urinary Incontinence type: other incontinence Qualified Code(s): N39.498 - Other specified urinary incontinence (13) ESRD (end stage renal disease) Current Visit: Yes Status: Acute - Plan Plan: 1. Hemodialysis per nephrology 2. Antiemetics 3. Stool studies 4. Strict blood pressure control 5. Review patient's home medications 6. Nephrology consultation 7. May need gastroenterology review 8. GI DVT prophylaxis Discharge Plan: Home Plan to discharge in: 24 Hours - Advance Directives Does patient have a Living Will: No Does patient have a Durable POA for Healthcare: No - Code Status/Comfort Care Code Status Assessed: Yes Code Status: Full Code Critical Care: No Time Spent Managing PTS Care (In Minutes): 45
[2022-06-11 18:07] VITALS: O2SAT 98
[2022-06-11 18:52] LABS: Potassium 4.1 mmol/L (3.5-5.1)
[2022-06-11 20:16] VITALS: BMI 27.3
[2022-06-12 06:26] LABS: Absolute Lymphocytes (CBC) 0.9 K/uL (0.7-4.9); Hematocrit 26.8 % (36.0-45.0); Lymphocytes % 19.8 % (15.3-44.8); MCV 96.3 fL (80-100); MPV 9.2 fL (7.6-11.3); RBC Red Blood Cell Count 2.78 M/uL (3.86-4.86)
[2022-06-12 06:56] LABS: Albumin 2.6 g/dL (3.4-5.0); Bilirubin Total 0.5 mg/dL (0.2-1.0); Potassium 5.2 mmol/L (3.5-5.1); Protein, Total 5.8 g/dL (6.4-8.2)
[2022-06-12 08:04] VITALS: BP 134/56; TEMP 98.7
--- NOTE | 2022-06-12 08:31 | EKG ---
Test Date: 2022-06-11 Test Time: 13:20:34 Police Detective: MEASUREMENT RESULTS: Intervals: Rate: 65 SC: 178 QRSD: 114 QT: 426 QTc: 443 Dudley: P: 234 SC: 178 QRS: 4 T: 37 INTERPRETIVE STATEMENTS: Junctional rhythm Incomplete left bundle branch block Abnormal ECG Compared to ECG 06/16/2020 12:11:03 Junctional rhythm now present Left bundle-branch block now present Sinus rhythm no longer present Atrial premature complex(es) no longer present Electronically Signed On 06-12-22 08:29:18 INSURANCE VERIFICATION REP by Be Coy
--- NOTE | 2022-06-12 11:32 | P.CNS ---
Date of Consult: 06/12/22 Reason for Consult: ESRD, hyperkalemia, azotemia Requesting Physician: Madonna López Chief Complaint: Intractable nausea and vomiting; hyperkalemia; ESRD History of Present Illness: Pt is an elderly female with ESRD on iHD MWF via a UE AV access on MWF HD at the [facility], pt missed HD Fri reporting N/V/D for the past few days. Pt reports not being able to keep anything down. Pt does have some intermittent GI issues and has had some epigastric abdominal pain. Pt was scheduled for an OP endoscopy tmrw with GI, CT scan done on admission did not reveal acute pathology. No active N/V this AM, but she had not had any other PO intake yet this AM. Allergies baclofen Allergy (Intermediate, Verified 06/08/22 13:00) Shortness of breath prochlorperazine [From Compazine] Allergy (Intermediate, Verified 06/08/22 13:00) "out of it" Home Medications: Acetaminophen with Codeine [Acetaminophen-Cod #3 Tablet] 1 each PO Q6HP PRN 06/11/22 Atenolol [Tenormin] 25 mg PO BID 06/11/22 Cyanocobalamin (Vitamin B-12) [Vitamin B-12] 1,000 mcg PO DAILY 06/11/22 Docusate Sodium [Stool Softener] 50 mg PO DAILY 06/11/22 Doxazosin [Cardura] 4 mg PO BID 06/11/22 Folic Acid/Vitamin B Comp W-C [Nephro-Lance Tablet] 0.8 mg PO DAILY 06/11/22 Hydralazine HCl 50 mg PO TID 06/11/22 Hydroxychloroquine [Plaquenil*] 200 mg PO DAILY 06/11/22 Hydroxyzine HCl [Atarax] 10 mg PO BID 06/11/22 Isosorbide Mononitrate [Isosorbide Mononitrate ER] 60 mg PO DAILY 06/11/22 Levothyroxine [Synthroid] 112 mcg PO [id number] 06/11/22 Losartan Potassium 50 mg PO BID 06/11/22 Melatonin 5 mg PO BEDTIME PRN 06/11/22 Metoclopramide [Reglan] 5 mg PO BID 06/11/22 Oxybutynin Chloride 5 mg PO TID 06/11/22 Pantoprazole [Protonix Tab] 40 mg PO BID 06/11/22 Tramadol HCl [Ultram] 50 mg PO BID PRN 06/11/22 - Past Medical/Surgical History Diabetic: No -: COPD -: HTN -: GERD -: Hypothyroidism -: CHF, diastolic dysfunction -: Chronic kidney disease -: Right atrophic kidney -: Lymphedema -: cholecystectomy -: appendectomy -: hysterectomy -: tonsillectomy -: L hip sx -: x2 abdominal hernia repairs -: right arm sx -: right ankle sx Psychosocial/ Personal History: The patient is . She is currently at a skilled facility - Family History Father Notes: brain aneurysm Mother Notes: aortic aneurysm Sister Medical History: Heart disease, Lung disease Notes: COPD, Heart problems, gallstones Brother Medical History: Lung disease Notes: asthma - Social History Smoking Status: Never smoker Alcohol use: No CD- Drugs: No Caffeine use: Yes Place of Residence: Home Review of Systems General: Weakness Eyes: Other ENT: Unremarkable Respiratory: Other (Hx of COPD and some chronic dyspnea, cough, on intermittent O2), Unremarkable Cardiovascular: Unremarkable Gastrointestinal: Nausea, Vomiting, Diarrhea Genitourinary: Other (Non anuric although no output recorded by [employer] here) Musculoskeletal: Unremarkable Integumentary: Unremarkable Neurological: Weakness, Unremarkable Physical Examination Temp Pulse Resp BP Pulse Ox 98.7 F 66 16 134/56 L 94 06/12/22 08:00 06/12/22 08:00 06/12/22 08:00 06/12/22 08:00 06/12/22 08:00 General: Alert, In no apparent distress, Oriented x3 HEENT: Atraumatic, Normocephalic, EOMI Neck: Supple Respiratory: Clear to auscultation bilaterally, Normal air movement Cardiovascular: No edema, Normal pulses, Regular rate/rhythm Gastrointestinal: Soft and benign, Non-distended, No tenderness, No guarding Musculoskeletal: No contractures Integumentary: No rashes, No breakdown Neurological: Normal speech, Normal tone, Normal affect Laboratory Data (last 24 hrs) 06/11/22 11:29: Sodium 131 L, Potassium 6.7 H*, BUN 95 H, Creatinine 6.89 H*, Glucose 131 H, Total Bilirubin 0.4, AST 18, ALT 16, Alkaline Phosphatase 85, Lipase 130 06/11/22 11:29: WBC 7.50, Hgb 9.5 L, Hct 28.9 L, Plt Count 104 L Conclusions/Impression: 1. ESRD 2. Hyperkalemia 3. Azotemia 4. Nausea, vomiting 5. Metab acidosis 6. Abnormality of albumin 7. Anemia 2nd to CKD, other -Emergent HD performed yesterday due to missed treatment Fri and hyperkalemia. -Will repeat HD today for additional metab clearance and to maintain OP dialysis schedule. Pt does not feel that she would be able to discharge this AM and attend her OP chair time, so will re-assess post HD. -Will address metab derangements with dialysis. -Will see if she tolerates clear, CT scan ruled out any acute abdominal pathologies. EGD scheduled for tmrw. Typically does not miss dialysis, but was quite azotemic on presentation so raises some possibility of uremia contributing to N/V although no other apparent obvious uremic symptoms displayed. Thank you for this referral, Sanjay Ferreira MD, MESHA
--- NOTE | 2022-06-12 12:13 | EKG ---
Test Date: 2022-06-11 Test Time: 13:32:35 Accordion Maker: MEASUREMENT RESULTS: Intervals: Rate: 65 [place]: 216 QRSD: 116 QT: 424 QTc: 440 [place]: P: 78 [place]: 216 QRS: -32 T: 45 INTERPRETIVE STATEMENTS: Sinus rhythm with 1st degree AV block Left axis deviation Incomplete left bundle branch block Abnormal ECG Compared to ECG 06/11/2022 13:20:34 First degree AV block now present Left-axis deviation now present Junctional rhythm no longer present Electronically Signed On 06-12-22 12:11:36 VALVE GRINDER by Clarence Navarrete
--- NOTE | 2022-06-12 13:57 | P.DS ---
Admission Date: 06/11/22 Discharge Date: 06/12/22 Disposition: ROUTINE DISCHARGE Discharge Condition: GOOD Reason for Admission: Intractable nausea and vomiting; hyperkalemia; ESRD Consultations: 1. Nephrology Hospital Course: DIAGNOSES: # Hyperkalemia in End-Stage Renal Disease on MWF iHD # Nausea/Vomiting possibly due to above, (resolved) # Chronic Obstructive Pulmonary Disease # Chronic Compensated Diastolic Congestive Heart Failure # Hypertension # Hypothyroidism # Gastroesophageal Reflux Disease # Moderate Hiatal Hernia # Sigmoid Diverticulosis # Depression with Anxiety # Obstructive Sleep Apnea HOSPITAL COURSE: Mrs. Maura Harris is a pleasant 81 year old female with a past medical history significant for end-stage renal disease on MWF iHD, chronic obstructive pulmonary disease, chronic diastolic congestive heart failure, hypertension, and hypothyroidism who was admitted to the [facility] on 06/11/2022 for nausea and vomiting. She was admitted to the Medicine service. Upon further evaluation, she was found to have a potassium of 6.7. She mentioned that she had missed hemodialysis on 06/09/2022 due to not feeling well. Nephrology was consulted and she underwent emergent hemodialysis on 06/11/2022. She underwent another session of hemodialysis on 06/12/2022, with significant improvement in her symptoms. She was able to tolerate a full meal for breakfast and lunch, without any recurrent nausea/vomiting. She states that she has been experiencing intermittent nausea/vomiting and has been scheduled for an outpatient esophagogastroduodenoscopy on 06/13/[address] De Los Santos. She was seen by Dr. Ferreira, who has cleared her for discharge with an outpatient follow-up. On 06/12/2022, she was seen on rounds and deemed medically stable for discharge. She was discharged with instructions to schedule follow-up appointments with her PCP/[employer]st (Dr. Sargent) in 3-5 days and to keep her appointment with Gastroenterology (Dr. De Los Santos) for tomorrow. She was provided a prescription for ondansetron. She and her were given the opportunity to ask questions and reported no further questions. Furthermore, all questions were answered to the best of my ability. A copy of this discharge summary will be sent to the above providers to facilitate continuity of care. Today, I personally spent 25 minutes on her case, of which greater than 50% of the time was spent in patient education, counseling, and coordination of care as described above. Vital Signs/Physical Exam: Temp Pulse Resp BP Pulse Ox 98.7 F 66 16 134/56 L 94 06/12/22 08:00 06/12/22 08:00 06/12/22 08:00 06/12/22 08:00 06/12/22 08:00 General: Alert, In no apparent distress, Oriented x3 HEENT: Atraumatic, PERRLA, Mucous membr. moist/pink, EOMI, Sclerae nonicteric Neck: Supple, JVD not distended Respiratory: Clear to auscultation bilaterally, Normal air movement Cardiovascular: Regular rate/rhythm, Normal S1 S2, No gallops, No rubs, No murmurs, Edema (trace BLE) Gastrointestinal: Normal bowel sounds, Soft and benign, Non-distended, No tenderness, No rebound, No guarding Musculoskeletal: No clubbing Integumentary: No rashes Neurological: Normal speech, Cranial nerves 3-12 intact, Normal affect Laboratory Data at Discharge: WBC 4.80 K/uL (4.3-10.9) 06/12/22 06:08 Hgb 8.9 g/dL (12.0-15.0) L 06/12/22 06:08 Hct 26.8 % (36.0-45.0) L 06/12/22 06:08 Plt Count 100 K/uL (152-406) L 06/12/22 06:08 Sodium 133 mmol/L (136-145) L 06/12/22 06:08 Potassium 5.2 mmol/L (3.5-5.1) H D 06/12/22 06:08 BUN 59 mg/dL (7-18) H 06/12/22 06:08 Creatinine 5.02 mg/dL (0.55-1.3) H* 06/12/22 06:08 Glucose 95 mg/dL (74-106) 06/12/22 06:08 Total Bilirubin 0.5 mg/dL (0.2-1.0) 06/12/22 06:08 AST 15 U/L (15-37) 06/12/22 06:08 ALT 12 U/L (12-78) 06/12/22 06:08 Alkaline Phosphatase 77 U/L (45-117) 06/12/22 06:08 Lipase 130 U/L (73-393) 06/11/22 11:29 Home Medications: Acetaminophen with Codeine [Acetaminophen-Cod #3 Tablet] 1 each PO Q6HP PRN 06/11/22 Atenolol [Tenormin] 25 mg PO BID 06/11/22 Cyanocobalamin (Vitamin B-12) [Vitamin B-12] 1,000 mcg PO DAILY 06/11/22 Docusate Sodium [Stool Softener] 50 mg PO DAILY 06/11/22 Doxazosin [Cardura*] 4 mg PO BID 06/11/22 Folic Acid/Vitamin B Comp W-C [Nephro-Lance Tablet] 0.8 mg PO DAILY 06/11/22 Hydralazine HCl 50 mg PO TID 06/11/22 Hydroxychloroquine [Plaquenil*] 200 mg PO DAILY 06/11/22 Hydroxyzine HCl [Atarax] 10 mg PO BID 06/11/22 Isosorbide Mononitrate [Isosorbide Mononitrate ER] 60 mg PO DAILY 06/11/22 Levothyroxine [Synthroid*] 112 mcg PO [id number] 06/11/22 Losartan Potassium 50 mg PO BID 06/11/22 Melatonin 5 mg PO BEDTIME PRN 06/11/22 Metoclopramide [Reglan*] 5 mg PO BID 06/11/22 Oxybutynin Chloride 5 mg PO TID 06/11/22 Pantoprazole [Protonix Tab*] 40 mg PO BID 06/11/22 Tramadol HCl [Ultram] 50 mg PO BID PRN 06/11/22 Ondansetron [Zofran] 4 mg PO Q8H PRN 7 Days #20 tab 06/12/22 New Medications: Ondansetron [Zofran] 4 mg PO Q8H PRN 7 Days #20 tab PRN Reason: Nausea / Vomiting Physician Discharge Instructions: 1. Please schedule a follow-up appointment with your PCP/[employer]st (Dr. Sargent) in 3-5 days 2. Please keep your scheduled appointment for your upper endoscopy with Gastroenterology (Dr. De Los Santos) on 06/13/2022 Diet: Renal Activity: Ad chip Followup: Kobe Sargent DO [Primary Care Provider] - Ramesh De Los Santos MD [OUTSIDE PHYSICIAN] - Time spent managing pt's care (in minutes): 25
== END 2022-06-12 15:07 | disposition home or self-care (01) ==
LOC: ER 10:21 → ERHOLD 15:14 → 2ND 18:10
PROVIDERS: ADMIT Hospitalist; ATTEND Internal Medicine
DX: N18.6 End stage renal disease (principal); E87.5 Hyperkalemia; R11.2 Nausea with vomiting, unspecified; R19.7 Diarrhea, unspecified; J44.9 Chronic obstructive pulmonary disease, unspecified; F41.8 Other specified anxiety disorders; I10 Essential (primary) hypertension; K21.9 Gastro-esophageal reflux disease without esophagitis; E03.9 Hypothyroidism, unspecified; G47.33 Obstructive sleep apnea (adult) (pediatric); N39.498 Other specified urinary incontinence; R79.89 Other specified abnormal findings of blood chemistry; E87.20 Acidosis, unspecified; D63.1 Anemia in chronic kidney disease; K57.90 Diverticulosis of intestine, part unspecified, without perforation or abscess without bleeding; Z99.2 Dependence on renal dialysis; Z88.8 Allergy status to other drugs, medicaments and biological substances; Z20.822 Contact with and (suspected) exposure to COVID-19; Z91.15 Patient's noncompliance with renal dialysis
CPT/HCPCS: 96365; 93005 ×2; 85025 ×2; 80048; 36415; 82947; 83690; 80053 ×2; 74176; 90935 ×2; 96375; 99285; 87811; J1815; J1644; J0610; J2405; G0378 ×3; G0257

== ENCOUNTER 2022-06-13 08:17 | Day surgery (SDC) | payer OTHER ==
[2022-06-13] MEDS ORDERED: Ringers Lactate 0 ML IV ONE (08:41)
[2022-06-13] MEDS ORDERED: NA CHLORIDE 0.9% 500 ML ONE (08:43)
[2022-06-13] MEDS ORDERED: LIDOCAINE 1% MPF 10 ML AMPULE ONE (10:10)
[2022-06-13] MEDS ORDERED: propofoL 200 MG/20 ML VIAL IV ONE (10:10)
[2022-06-13 12:08] VITALS: O2SAT 99
[2022-06-13 12:10] VITALS: BP 117/55; TEMP 97.3
--- NOTE | 2022-06-21 19:41 | OP ---
Surgeon: Krish Salguero MD Procedure: Esophagogastroduodenoscopy. Indications For Procedure: Dysphagia, nausea, and vomiting. Anesthesia: Monitored anesthesia care. Complexity: Average. Technique: After obtaining informed consent from the patient and explaining risks and complications , which include, but are not limited to bleeding, infection, perforation, and anesthesia complication ; patient was placed in left lateral position and sedation was given. Subsequently, the scope was ad vanced into the mouth and carefully guided up to the second portion of the duodenum. After completio n of examination, all therapeutic and diagnostic maneuvers, scope and equipment were withdrawn and pr ocedure terminated in a safe manner. Findings: Esophagus: No gross lesion seen in the upper and mid esophagus; however, mild esophagitis seen in the distal with some whitish plaques. Biopsies were taken. Hiatal hernia was also seen in the distal esophagus and just above the hiatal hernia, mild stricture was seen. Due to the patient's symptoms, we proceeded to do a guidewire assisted dilation up to 14 mm successfully. Stomach: Mild patchy erythema seen in the body and antrum biopsies taken. Duodenum: The bulb and second portion appeared normal. Complications: None. Tolerance To Anesthesia: Excellent. Postoperative Diagnoses: Mild esophageal stricture status post dilation, esophagitis, rule out ansley da, hiatal hernia, gastritis. Plan: 1.Await pathology results. 2.Follow up in the GI Clinic. Estimated Blood Loss: Minimal. US/MODL Voice ID: [id number] Report ID: [id number]
== END 2022-06-13 11:28 | disposition home or self-care (01) ==
LOC: OR 08:17
PROVIDERS: ATTEND Internal Medicine Gastroenterology
PROC: 0DB78ZX Excision of Stomach, Pylorus, Via Natural or Artificial Opening Endoscopic, Diagnostic (ICD-10-PCS; 2022-06-13)
PROC: 0DB38ZX Excision of Lower Esophagus, Via Natural or Artificial Opening Endoscopic, Diagnostic (ICD-10-PCS; principal; 2022-06-13 09:45)
DX: B37.81 Candidal esophagitis (principal); K29.50 Unspecified chronic gastritis without bleeding; R10.9 Unspecified abdominal pain; K21.9 Gastro-esophageal reflux disease without esophagitis; R11.2 Nausea with vomiting, unspecified; R12 Heartburn; K44.9 Diaphragmatic hernia without obstruction or gangrene
CPT/HCPCS: 43239; 88312 ×2; 88305; J2704; J7040; J7120

== ENCOUNTER 2023-05-03 20:46 | Inpatient (IN) | payer OTHER ==
--- OUTSIDE RECORDS SUMMARY | 2023-05-03 20:56 | XMS REPORT | Continuity of Care Document ---
:[address] [facility] t Address [address] [place] [address] Care Team Providers Name Role Phone Asked, No Pcp Primary Care Physician Unavailable Clarence Navarrete Attending Clinician Unavailable Doctor Unassigned, Friedens Attending Clinician Unavailable SAILAJA TAYLOR Attending Clinician Unavailable SAILAJA TAYLOR Attending Clinician Unavailable Sailaja Taylor DO Attending Clinician GORDON DE LA TORRE Attending Clinician Unavailable Padmini Bowman RN Attending Clinician Papo Hernandez DO Attending Clinician Foster Gama MD Attending Clinician FOSTER GAMA Attending Clinician Unavailable Arleen Hill Attending Clinician Mary Vieira MD Attending Clinician [phone] MARY VIEIRA Attending Clinician Unavailabl e SAILAJA TAYLOR Admitting Clinician Unavailable GORDON DE LA TORRE Admitting Clinician Unavailable Foster Gama MD Admitting Clinician FOSTER GAMA Admitting Clinician Unavailable Dariel CESPEDES, Mary Jolly Admitting Clinician [phone] MARY VIEIRA Admitting Clinician Unavailabl e Payers Payer Name Policy Type Policy Number Effective Date Expiration Date S cindy MEDICARE PART A [id number] 1987 AND B 00:00:00 MEDICARE PART A [id number] 1987 \T\ B 00:00:00 [employer] [place] [id number] 2021 PLUS CLASSIC/VALUE 00:00:00 Problems Condition Condition Condition Status Onset Resolution Last Treating Co mments Source Name Details Category Date Date Treatment Clinician Date ESRD (end ESRD (end Disease Active Overview: Methodi stage stage 5-[address] renal renal 00:00: g of this [facility] disease) disease) 00 note l on on might be dialysis dialysis different from the original. Added automatic ally from request for surgery [id number] Hyponatrem Hyponatrem Disease Active U iqra ia ia 1-26 ity of 00:00: [place] 00 Medical Branch Acute-on-c Acute-on-c Disease Active U iqra hronic hronic 1-21 ity of kidney kidney 00:00: [place] injury injury 00 Medical Branch Elevated Elevated Disease Active Unive rs brain brain -09 ity of natriureti nat[place]ti [place] peptide c peptide 00 [facility] (BNP) (BNP) Branch level level Essential Essential Disease Active Uni vers hypertensi hypertensi 1-09 it y of on on 00:00: [place] 00 Medical Branch VHD VHD Disease Active Univers (valvular (valvular 09 ity of heart heart 00:00: [place] disease) disease) 00 Medica l Branch PRESSLEY PRESSLEY Disease Active Univers (dyspnea (dyspnea 09 ity of on on 00:00: [place] exertion) exertion) 00 Medi nicole Branch Type 2 Type 2 Disease Active Univers diabetes diabetes 09 ity of mellitus mellitus 00:00: [place] with other with other 00 Me dical specified specified Bran ch complicati complicati on on Acute on Acute on Disease Active Unive rs chronic chronic 1-09 ity of diastolic diastolic 00:00: Jorge s congestive congestive Me dical heart heart Branch failure failure Morbid Morbid Disease Active Univers obesity obesity 1-09 ity of 00:00: [place] [id number] Medical Branch Anemia Anemia Disease Active Univers 1-09 ity of 00:00: [place] [address] Medical Branch Acute Acute Disease Active Univers renal renal 1-06 ity of failure failure 00:00: [place] [facility] MAGAN (acute MAGAN (acute Disease Active U nivers kidney kidney 1-05 ity of injury) injury) 00:00: [place] [address] Medical Branch Obesity Obesity Disease Active 2015-08 Univers (BMI (BMI 2-28 ity of 30-39.9) 30-39.9) 00:00: [place] [address] Medical Branch Hypertensi Hypertensi Disease Active M [...] s to drug Phenothi DA Active U 2019-08 [facility] azines 2-10 Clear 00:00: [place] 00 [facility] Thioxant DA Active U 2020-1 [facility] henes 2-10 Clear 00:00: [place] 00 [facility] prochlor DA Active U 2020-1 [facility] perazine 2-10 Clear 00:00: [place] 00 [facility] baclofen DA Active U 2020-1 [facility] 2-10 Clear 00:00: [place] 00 [facility] hydralaz DA Active U 2020-1 [facility] ine 2-10 Clear 00:00: [place] 00 [facility] ondanset DA Active U 2020-1 [facility] ramona 2-10 Clear 00:00: [place] 00 [facility] vancomyc DA Active U 2020-1 [facility] in 2-10 Clear 00:00: [place] 00 [facility] cefepime DA Active U 2020-1 [facility] 2-10 Clear 00:00: [place] 00 [facility] cefepime DA Active U UNKNOWN 2020-1 [facility] 2-10 Clear 00:00: [place] 00 [facility] Phenothi DA Active U UNKNOWN 2020-1 [facility] azines 2-10 Clear 00:00: [place] 00 [facility] Thioxant DA Active U UNKNOWN 2020-1 [facility] henes 2-10 Clear 00:00: [place] 00 [facility] prochlor DA Active U UNKNOWN 2020-1 [facility] perazine 2-10 Clear 00:00: [place] 00 [facility] baclofen DA Active U UNKNOWN 2020-1 [facility] 2-10 Clear 00:00: [place] 00 [facility] hydralaz DA Active U UNKNOWN 2020-1 [facility] ine 2-10 Clear 00:00: [place] 00 [facility] ondanset DA Active U UNKNOWN 2020-1 [facility] ramona 2-10 Clear 00:00: [place] 00 [facility] vancomyc DA Active U UNKNOWN 2020-1 [facility] in 2-10 Clear 00:00: [place] 00 [facility] Baclofen Propensi Active Unknown - 2016- Uni vers ty to See comments 2-27 ity of adverse 00:00: [place] reaction 00 Medical s Branch Cefepime Propensi Active Unknown - 2016- Uni vers ty to See comments 2-27 ity of adverse 00:00: [place] reaction 00 Medical s Branch Prochlor Propensi Active Unknown - 2016- Uni vers perazine ty to See comments 2-27 it y of adverse 00:00: [place] reaction 00 Medical s Branch Phenothi Propensi Active Unknown - 2015-08 Uni vers azines ty to See comments 2-27 ity of adverse 00:00: [place] reaction [address] [facility] Thioxant Propensi Active Unknown - 2015-08 Uni vers henes ty to See comments 2-27 ity of adverse 00:00: [place] reaction [address] [facility] BACLOFEN DRUG Active Unknown-Cmnt 2015-08 Un [facility] INGREDI 2-27 ity of 00:00: [place] 00 Medical Branch CEFEPIME DRUG Active Unknown-Cmnt 2015-08 Un [place] INGREDI 2-27 ity of 00:00: [place] 00 Medical Branch PHENOTHI Drug Active Unknown-Cmnt 2015-08 [facility] [place] AZINES Class 2-27 ity of 00:00: [place] 00 [facility] PROCHLOR DRUG Active Unknown-Cmnt 2015-08 [facility] [place] PERAZINE INGREDI 2-27 ity of 00:00: [place] 00 Medical [place] THIOXANT Drug Active Unknown-Cmnt 2015-08 Un [facility] HENES Class 2-27 ity of 00:00: [place] 00 Medical Branch Phenothi Propensi Active Unknown - 2015-08 Uni vers azines ty to See comments 2-27 ity of adverse 00:00: [place] reaction 00 [facility] iodine DA Active U 2009-0 [facility] 6-15 Clear 00:00: [place] 00 [facility] prochlor DA Active U 2009-0 [facility] perazine 6-15 Clear 00:00: [place] 00 [facility] ciproflo DA Active U 2009-0 [facility] xacin 6-15 Clear 00:00: [place] 00 [facility] Not DA Active U 2009-0 [facility] Converte 6-15 Clear d 80. 00:00: Jiang See 00 [facility] Social History Social Habit Start Date Stop Date Quantity Comments Source History SDOH [facility] Alcohol Std Drinks Hospit al History SDOH [facility] Sexual orientation Method [facility] Hospital Exposure to 2022-10-09 2022-10-19 Not sure University of SARS-CoV-2 (event) 00:00:00 11:28:00 [facility] History of Social 2022-10-10 2022-10-[address] function 00:00:00 00:00:00 Hospital Tobacco use and 2022-03-02 2022-03-02 Smokeless Universit y of exposure 00:00:00 00:00:00 [facility] [place] Alcohol intake 2021-02-25 2021-02-25 Lifetime [facility] 00:00:00 00:00:00 non-drinker Hospital (finding) History SDCO 2021-02-22 2021-02-22 1 [facility] Alcohol Frequency 00:00:00 00:00:00 Hospita l History SDOH 2020-08-11 2020-08-11 5 University o f Financial 00:00:00 00:00:00 [place] [facility] History SDOH Food 2020-08-11 2020-08-11 1 Univers ity of Worry 00:00:00 00:00:00 [place] [facility] History SDOH Food 2020-08-11 2020-08-11 1 Univers ity of Scarcity 00:00:00 00:00:00 [place] [facility] History SDCO 2020-08-11 2020-08-11 2 University o f Transport Med 00:00:00 00:00:00 [place] [facility] History SDCO 2020-08-11 2020-08-11 2 University o f Transport Non-Med 00:00:00 00:00:00 [facility] Sex Ass[birth year] At [birth year] [facility] 00:00:00 00:00:00 Hospital Smoking Status Start Date Stop Date Source Never smoked tobacco [facility] Medications Ordered Filled Start Stop Current Ordering Indication Dosage Frequency Signature Comments Components Source Medication Medication Date Date Medication? Clinician (SIG) Name Name azelastine Yes [id number] 1{spray Use 1 Univers 137 mcg 3-16 } [place] in ity of (0.1 %) 00:00: each [place] nasal spray [facility] [place] morning and 1 [place] in the evening. Use in each nostril as directed azelastine Yes [id number] 1{spray Use 1 Univers 137 mcg 3-16 } [place] in ity of (0.1 %) 00:00: each [place] nasal spray [facility] morning and 1 [place] in the evening. Use in each nostril as directed azelastine Yes [id number] 1{spray Use 1 Univers 137 mcg 3-16 } [place] in ity of (0.1 %) 00:00: each [place] nasal spray 00 nostril in Mo dical the Branch morning and 1 [place] in the evening. Use in each nostril as directed oxybutynin 2021-08 Yes 5mg Take 5 mg Un [place] chloride 5 2-29 by mouth 3 ity of mg tablet 11:07: (three) [place] 15 times Medical daily. Branch levothyroxi 2021-08 Yes 112ug Take 112 U nivers ne 112 mcg 2-29 mcg by ity of tablet 11:07: mouth [place] 15 every Medical morning. Branch busPIRone 2021-08 Yes 10mg Take 10 mg Un [place] 10 mg 2-29 by mouth ity of tablet 11:07: daily. [address] dextrometho 2021-08 Yes 1{tbl} Take 1 Un [place] rphan-guaif 2-29 tablet by ity of enesin 11:07: mouth 2 [place] 30-600 mg 15 (two) Medical per tablet times Branch daily. isosorbide 2021-08 Yes 60mg Take 60 mg U nivers mononitrate 2-29 by mouth ity of 60 mg 24 hr 11:07: [place]. [place] tablet 15 [facility] Branch ondansetron 2021-08 Yes 4mg Take 4 mg U nivers 4 mg tablet 2-29 by mouth ity of 11:07: every 8 [place] 15 (eight) Medical hours as Branch needed. pantoprazol 2021-08 Yes 40mg Take 40 mg Univers e 40 mg EC 2-29 by mouth ity o f tablet 11:07: daily. [address] oxybutynin 2021-08 Yes 5mg Take 5 mg Un [place] chloride 5 2-29 by mouth 3 ity of mg tablet 11:07: (three) [place] 15 times Medical daily. Branch levothyroxi 2021-08 Yes 112ug Take 112 U nivers ne 112 mcg 2-29 mcg by ity of tablet 11:07: mouth [place] 15 every Medical morning. Branch busPIRone 2021-08 Yes 10mg Take 10 mg Un [place] 10 mg 2-29 by mouth ity of tablet 11:07: daily. [address] dextrometho 2021-08 Yes 1{tbl} Take 1 Un [place] rphan-guaif 2-29 tablet by ity of enesin 11:07: mouth 2 [place] 30-600 mg 15 (two) Medical per tablet times Branch daily. isosorbide 2021-08 Yes 60mg Take 60 mg U nivers mononitrate 2-29 by mouth ity of 60 mg 24 hr 11:07: [place]. [place] tablet 15 [place] [facility] ondansetron 2021-08 Yes 4mg Take 4 mg U nivers 4 mg tablet 2-29 by mouth ity of 11:07: every 8 [place] 15 (eight) Medical hours as Branch needed. pantoprazol 2021-08 Yes 40mg Take 40 mg Univers e 40 mg EC 2-29 by mouth ity o f tablet 11:07: daily. [address] Branch oxybutynin 2021-08 Yes 5mg Take 5 mg Un [place] chloride 5 2-29 by mouth 3 ity of mg tablet 11:07: (three) [place] 15 times Medical daily. Branch levothyroxi 2021-08 Yes 112ug Take 112 U nivers ne 112 mcg 2-29 mcg by ity of tablet 11:07: mouth [place] 15 every Medical morning. Branch busPIRone 2021-08 Yes 10mg Take 10 mg Un [place] 10 mg 2-29 by mouth ity of tablet 11:07: daily. [address] Branch dextrometho 2021-08 Yes 1{tbl} Take 1 Un [place] rphan-guaif 2-29 tablet by ity of enesin 11:07: mouth 2 [place] 30-600 mg 15 (two) Medical per tablet times Branch daily. isosorbide 2021-08 Yes 60mg Take 60 mg U nivers mononitrate 2-29 by mouth ity of 60 mg 24 hr 11:07: [place]. [place] tablet 15 [place] Branch ondansetron 2021-08 Yes 4mg Take 4 mg U nivers 4 mg tablet 2-29 by mouth ity of 11:07: every 8 [place] 15 (eight) Medical hours as Branch needed. pantoprazol 2021-08 Yes 40mg Take 40 mg Univers e 40 mg EC 2-29 by mouth ity o f tablet 11:07: daily. [address] Branch oxybutynin 2021-08 Yes 5mg Take 5 mg Un [place] chloride 5 2-29 by mouth 3 ity of mg tablet 11:07: (three) [place] 15 times Medical daily. Branch levothyroxi 2021-08 Yes 112ug Take 112 U nivers ne 112 mcg 2-29 mcg by ity of tablet 11:07: mouth [place] 15 every Medical morning. Branch busPIRone 2021-08 Yes 10mg Take 10 mg Un [place] 10 mg 2-29 by mouth ity of tablet 11:07: daily. [address] Branch dextrometho 2021-08 Yes 1{tbl} Take 1 Un [place] rphan-guaif 2-29 tablet by ity of enesin 11:07: mouth 2 [place] 30-600 mg 15 (two) Medical per tablet times Branch daily. isosorbide 2021-08 Yes 60mg Take 60 mg U nivers mononitrate 2-29 by mouth ity of 60 mg 24 hr 11:07: [place]. [place] tablet 15 [place] Branch ondansetron 2021-08 Yes 4mg Take 4 mg U nivers 4 mg tablet 2-29 by mouth ity of 11:07: every 8 [place] 15 (eight) Medical hours as Branch needed. pantoprazol 2021-08 Yes 40mg Take 40 mg Univers e 40 mg EC 2-29 by mouth ity o f tablet 11:07: daily. [address] Branch oxybutynin 2021-08 Yes 5mg Take 5 mg Un [place] chloride 5 2-29 by mouth 3 ity of mg tablet 11:07: (three) [place] 15 times Medical daily. Branch levothyroxi 2021-08 Yes 112ug Take 112 U nivers ne 112 mcg 2-29 mcg by ity of tablet 11:07: mouth [place] 15 every Medical morning. Branch busPIRone 2021-08 Yes 10mg Take 10 mg Un [place] 10 mg 2-29 by mouth ity of tablet 11:07: daily. [place] 15 Medical Branch dextrometho 2021-08 Yes 1{tbl} Take 1 Un [place] rphan-guaif 2-29 tablet by ity of enesin 11:07: mouth 2 [place] 30-600 mg 15 (two) Medical per tablet times Branch daily. isosorbide 2021-08 Yes 60mg Take 60 mg U nivers mononitrate 2-29 by mouth ity of 60 mg 24 hr 11:07: [place]. [place] tablet 15 [place] ondansetron 2021-08 Yes 4mg Take 4 mg U nivers 4 mg tablet 2-29 by mouth ity of 11:07: every 8 [place] 15 (eight) Medical hours as Branch needed. pantoprazol 2021-08 Yes 40mg Take 40 mg Univers e 40 mg EC 2-29 by mouth ity o f tablet 11:07: daily. [address] Branch oxybutynin 2021-08 Yes 5mg Take 5 mg Un [place] chloride 5 2-29 by mouth 3 ity of mg tablet 11:07: (three) [place] 15 times Medical daily. Branch levothyroxi 2021-08 Yes 112ug Take 112 U nivers ne 112 mcg 2-29 mcg by ity of tablet 11:07: mouth [place] 15 every Medical morning. Branch busPIRone 2021-08 Yes 10mg Take 10 mg Un [place] 10 mg 2-29 by mouth ity of tablet 11:07: daily. [address] Branch dextrometho 2021-08 Yes 1{tbl} Take 1 Un [place] rphan-guaif 2-29 tablet by ity of enesin 11:07: mouth 2 [place] 30-600 mg 15 (two) Medical per tablet times Branch daily. isosorbide 2021-08 Yes 60mg Take 60 mg U nivers mononitrate 2-29 by mouth ity of 60 mg 24 hr 11:07: [place]. [place] tablet 15 [place] Branch ondansetron 2021-08 Yes 4mg Take 4 mg U nivers 4 mg tablet 2-29 by mouth ity of 11:07: every 8 [place] 15 (eight) Medical hours as Branch needed. pantoprazol 2021-08 Yes 40mg Take 40 mg Univers e 40 mg EC 2-29 by mouth ity o f tablet 11:07: daily. [address] Branch fluticasone 2021-08 Yes [id number] 1{puff} Inhale 1 Univers -umeclidin- 0-27 Puff ity of vilanter 00:00: daily. [place] (TRELEGY 00 Medical ELLIPTA) Branch 100-62.5-25 mcg DsDv fluticasone 2021-08 Yes [id number] 1{puff} Inhale 1 Univers -umeclidin- 0-27 Puff ity of vilanter 00:00: daily. [place] [facility] ELL[facility] Branch 100-62.5-25 mcg DsDv fluticasone 2021-08 Yes [id number] 1{puff} Inhale 1 Univers -umeclidin- 0-27 Puff ity of vilanter 00:00: daily. [place] ([facility] ELLIPTA) Branch 100-62.5-25 mcg DsDv fluticasone 2021-08 Yes [id number] 1{puff} Inhale 1 Univers -umeclidin- 0-27 Puff ity of vilanter 00:00: daily. [place] ([facility] ELLIPTA) Branch 100-62.5-25 mcg DsDv fluticasone 2021-08 Yes [id number] 1{puff} Inhale 1 Univers -umeclidin- 0-27 Puff ity of vilanter 00:00: daily. [place] ([facility] ELLIPTA) Branch 100-62.5-25 mcg DsDv fluticasone 2021-08 Yes [id number] 1{puff} Inhale 1 Univers -umeclidin- 0-27 Puff ity of vilanter 00:00: daily. [place] ([facility] Medical ELLIPTA) Branch 100-62.5-25 mcg DsDv fluticasone 2021-08 Yes [id number] 1{puff} Inhale 1 Univers -umeclidin- 0-27 Puff ity of vilanter 00:00: daily. [place] ([facility] Medical ELLIPTA) Branch 100-62.5-25 mcg DsDv fluticasone 2021-08 Yes [id number] 1{puff} Inhale 1 Univers -umeclidin- 0-27 Puff ity of vilanter 00:00: daily. [place] ([facility] Medical ELLIPTA) Branch 100-62.5-25 mcg DsDv fluticasone 2021-08 Yes [id number] 1{puff} Inhale 1 Univers -umeclidin- 0-27 Puff ity of vilanter 00:00: daily. [place] (TRELEGY 00 Medical ELLIPTA) Branch 100-62.5-25 mcg DsDv fluticasone 2021-08 Yes [id number] 1{puff} Inhale 1 Univers -umeclidin- 0-27 Puff ity of vilanter 00:00: daily. [place] (TRELEGY 00 Medical ELLIPTA) Branch 100-62.5-25 mcg DsDv albuterol 2021-08 Yes [id number] 2.5mg Inhale 3 Univers 2.5 mg /3 0-14 mL every 4 ity of mL (0.083 00:00: (four) [place] %) 00 hours as Medical nebulizer needed for Bran ch solution Wheezing or Shortness of Breath. albuterol 2021-08 Yes [id number] 2{puff} Inhale 2 Univers 90 0-14 Puffs ity of mcg/actuati 00:00: every 4 [place] as on inhaler 00 (four) Medical hours as Branch needed for Wheezing or Shortness of Breath. albuterol 2021-08 Yes [id number] 2.5mg Inhale 3 Univers 2.5 mg /3 0-14 mL every 4 ity of mL (0.083 00:00: (four) [place] %) 00 hours as Medical nebulizer needed for Bran ch solution Wheezing or Shortness of Breath. albuterol 2021-08 Yes [id number] 2{puff} Inhale 2 Univers 90 0-14 Puffs ity of mcg/actuati 00:00: every 4 [place] as on inhaler 00 (four) Medical hours as Branch needed for Wheezing or Shortness of Breath. albuterol 2021-08 Yes [id number] 2.5mg Inhale 3 Univers 2.5 mg /3 0-14 mL every 4 ity of mL (0.083 00:00: (four) [place] %) 00 hours as Medical nebulizer needed for Bran ch solution Wheezing or Shortness of Breath. albuterol 2021-08 Yes [id number] 2{puff} Inhale 2 Univers 90 0-14 Puffs ity of mcg/actuati 00:00: every 4 [place] on inhaler 00 (four) Medical hours as Branch needed for Wheezing or Shortness of Breath. albuterol 2021-08 Yes [id number] 2.5mg Inhale 3 Univers 2.5 mg /3 0-14 mL every 4 ity of mL (0.083 00:00: (four) [place] %) 00 hours as Medical nebulizer needed for Bran ch solution Wheezing or Shortness of Breath. albuterol 2021-08 Yes [id number] 2{puff} Inhale 2 Univers 90 0-14 Puffs ity of mcg/actuati 00:00: every 4 [place] on inhaler 00 (four) Medical hours as Branch needed for Wheezing or Shortness of Breath. albuterol 2021-08 Yes [id number] 2.5mg Inhale 3 Univers 2.5 mg /3 0-14 mL every 4 ity of mL (0.083 00:00: (four) [place] %) 00 hours as Medical nebulizer needed for Bran ch solution Wheezing or Shortness of Breath. albuterol 2021-08 Yes [id number] 2{puff} Inhale 2 Univers 90 0-14 Puffs ity of mcg/actuati 00:00: every 4 [place] on inhaler 00 (four) Medical hours as Branch needed for Wheezing or Shortness of Breath. albuterol 2021-08 Yes [id number] 2.5mg Inhale 3 Univers 2.5 mg /3 0-14 mL every 4 ity of mL (0.083 00:00: (four) [place] %) 00 hours as Medical nebulizer needed for Bran ch solution Wheezing or Shortness of Breath. albuterol 2021-08 Yes [id number] 2{puff} Inhale 2 Univers 90 0-14 Puffs ity of mcg/actuati 00:00: every 4 [place] as on inhaler 00 (four) Medical hours as Branch needed for Wheezing or Shortness of Breath. albuterol 2021-08 Yes [id number] 2.5mg Inhale 3 Univers 2.5 mg /3 0-14 mL every 4 ity of mL (0.083 00:00: (four) [place] %) 00 hours as Medical nebulizer needed for Bran ch solution Wheezing or Shortness of Breath. albuterol 2021-08 Yes [id number] 2{puff} Inhale 2 Univers 90 0-14 Puffs ity of mcg/actuati 00:00: every 4 [place] on inhaler 00 (four) Medical hours as Branch needed for Wheezing or Shortness of Breath. albuterol 2021-08 Yes [id number] 2.5mg Inhale 3 Univers 2.5 mg /3 0-14 mL every 4 ity of mL (0.083 00:00: (four) [place] %) 00 hours as Medical nebulizer needed for Bran ch solution Wheezing or Shortness of Breath. albuterol 2021-08 Yes [id number] 2{puff} Inhale 2 Univers 90 0-14 Puffs ity of mcg/actuati 00:00: every 4 [place] on inhaler 00 (four) Medical hours as Branch needed for Wheezing or Shortness of Breath. albuterol 2021-08 Yes [id number] 2.5mg Inhale 3 Univers 2.5 mg /3 0-14 mL every 4 ity of mL (0.083 00:00: (four) [place] %) 00 hours as Medical nebulizer needed for Bran ch solution Wheezing or Shortness of Breath. albuterol 2021-08 Yes [id number] 2{puff} Inhale 2 Univers 90 0-14 Puffs ity of mcg/actuati 00:00: every 4 [place] on inhaler 00 (four) Medical hours as Branch needed for Wheezing or Shortness of Breath. albuterol 2021-08 Yes [id number] 2.5mg Inhale 3 Univers 2.5 mg /3 0-14 mL every 4 ity of mL (0.083 00:00: (four) [place] %) 00 hours as Medical nebulizer needed for Bran ch solution Wheezing or Shortness of Breath. albuterol 2021-08 Yes [id number] 2{puff} Inhale 2 Univers 90 0-14 Puffs ity of mcg/actuati 00:00: every 4 [place] on inhaler 00 (four) Medical hours as Branch needed for Wheezing or Shortness of Breath. albuterol 2021-08 Yes [id number] 2.5mg Inhale 3 Univers 2.5 mg /3 0-14 mL every 4 ity of mL (0.083 00:00: (four) [place] %) 00 hours as Medical nebulizer needed for Bran ch solution Wheezing or Shortness of Breath. albuterol 2021-08 Yes [id number] 2{puff} Inhale 2 Univers 90 0-14 Puffs ity of mcg/actuati 00:00: every 4 [place] on inhaler 00 (four) Medical hours as Branch needed for Wheezing or Shortness of Breath. predniSONE Yes [id number] 40mg Take 2 U nivers 20 mg 9-09 tablets by ity of tablet 00:00: mouth in [place] 00 the Medical morning. Branch doxycycline Yes [id number] 100mg Take 1 Univers 100 mg EC 9-09 tablet by ity o f tablet 00:00: mouth in [place] 00 the Medical morning Branch and 1 tablet in the evening. predniSONE 2022-0 Yes [id number] 40mg Take 2 U nivers 20 mg 9-09 tablets by ity of tablet 00:00: mouth in [place] the Medical morning. Branch doxycycline 2022-0 Yes [id number] 100mg Take 1 Univers 100 mg EC 9-09 tablet by ity o f tablet 00:00: mouth in [place] 00 the Medical morning Branch and 1 tablet in the evening. predniSONE 2022-0 Yes [id number] 40mg Take 2 U nivers 20 mg 9-09 tablets by ity of tablet 00:00: mouth in [place] the Medical morning. Branch doxycycline 2022-0 Yes [id number] 100mg Take 1 Univers 100 mg EC 9-09 tablet by ity o f tablet 00:00: mouth in [place] the Medical morning Branch and 1 tablet in the evening. predniSONE 2022-0 Yes [id number] 40mg Take 2 U nivers 20 mg 9-09 tablets by ity of tablet 00:00: mouth in [place] the Medical morning. Branch doxycycline 2022-0 Yes [id number] 100mg Take 1 Univers 100 mg EC 9-09 tablet by ity o f tablet 00:00: mouth in [place] the Medical morning Branch and 1 tablet in the evening. predniSONE 2022-0 Yes [id number] 40mg Take 2 U nivers 20 mg 9-09 tablets by ity of tablet 00:00: mouth in [place] the Medical morning. Branch doxycycline 2022-0 Yes [id number] 100mg Take 1 Univers 100 mg EC 9-09 tablet by ity o f tablet 00:00: mouth in [place] 00 the Medical morning Branch and 1 tablet in the evening. predniSONE 2022-0 Yes [id number] 40mg Take 2 U nivers 20 mg 9-09 tablets by ity of tablet 00:00: mouth in [place] the Medical morning. Branch doxycycline 2022-0 Yes [id number] 100mg Take 1 Univers 100 mg EC 9-09 tablet by ity o f tablet 00:00: mouth in [place] 00 the Medical morning Branch and 1 tablet in the evening. predniSONE 2022-0 Yes [id number] 40mg Take 2 U nivers 20 mg 9-09 tablets by ity of tablet 00:00: mouth in [place] the Medical morning. Branch doxycycline 2022-0 Yes [id number] 100mg Take 1 [facility] 100 mg EC 9-09 tablet by ity o f tablet 00:00: mouth in [place] the Medical morning Branch and 1 tablet in the evening. predniSONE 2022-0 Yes [id number] 40mg Take 2 U nivers 20 mg 9-09 tablets by ity of tablet 00:00: mouth in [place] the Medical morning. Branch doxycycline 2022-0 Yes [id number] 100mg Take 1 [facility] 100 mg EC 9-09 tablet by ity o f tablet 00:00: mouth in [place] the Medical morning Branch and 1 tablet in the evening. predniSONE 2022-0 Yes [id number] 40mg Take 2 U nivers 20 mg 9-09 tablets by ity of tablet 00:00: mouth in [place] the Medical morning. Branch doxycycline 2022-0 Yes [id number] 100mg Take 1 [facility] 100 mg EC 9-09 tablet by ity o f tablet 00:00: mouth in [place] the Medical morning Branch and 1 tablet in the evening. predniSONE 2022-0 Yes [id number] 40mg Take 2 U nivers 20 mg 9-09 tablets by ity of tablet 00:00: mouth in [place] the Medical morning. Branch doxycycline 2022-0 Yes [id number] 100mg Take 1 [facility] 100 mg EC 9-09 tablet by ity o f tablet 00:00: mouth in [place] the Medical morning Branch and 1 tablet in the evening. predniSONE 2022-0 Yes [id number] 40mg Take 2 U nivers 20 mg 9-09 tablets by ity of tablet 00:00: mouth in [place] the Medical morning. Branch doxycycline 2022-0 Yes [id number] 100mg Take 1 [facility] 100 mg EC 9-09 tablet by ity o f tablet 00:00: mouth in [place] the Medical morning Branch and 1 tablet in the evening. predniSONE 2022-0 Yes [id number] 40mg Take 2 U nivers 20 mg 9-09 tablets by ity of tablet 00:00: mouth in [place] the Medical morning. Branch doxycycline 2022-0 Yes [id number] 100mg Take 1 [facility] 100 mg EC 9-09 tablet by ity o f tablet 00:00: mouth in [place] the Medical morning Branch and 1 tablet in the evening. oxybutynin 2022-0 Yes 5mg Take 5 mg Un [facility] chloride 5 7-28 by mouth 3 ity of mg tablet 09:03: (three) [place] [address] times Medical daily. Branch levothyroxi 2021-0 Yes 112ug Take 112 U nivers ne 112 mcg 7-28 mcg by ity of tablet 09:03: mouth [place] [address] every Medical morning. Branch busPIRone 2021-0 Yes 10mg Take 10 mg [facility] 10 mg 7-28 by mouth ity of tablet 09:03: daily. [address] Branch dextrometho 0 Yes 1{tbl} Take 1 Un [facility] rphan-guaif 7-28 tablet by ity of enesin 09:03: mouth 2 [place] 30-600 mg 11 (two) Medical per tablet times Branch daily. isosorbide 2021-0 Yes 60mg Take 60 mg U nivers mononitrate 7-28 by mouth ity of 60 mg 24 [place] 09:03[place] [address] Branch ondansetron 2021-0 Yes 4mg Take 4 mg U nivers 4 mg tablet 7-28 by mouth ity of 09:03: every 8 [place] [address] (eight) Medical hours as Branch needed. pantoprazol 2021-0 Yes 40mg Take 40 mg [facility] e 40 mg EC 7-28 by mouth ity o f tablet 09:03: daily. [address] Branch oxybutynin 2021-0 Yes 5mg Take 5 mg [facility] [place] chloride 5 7-28 by mouth 3 ity of mg tablet 09:03: (three) [place] [address] times Medical daily. Branch levothyroxi 2021-0 Yes 112ug Take 112 U nivers ne 112 mcg 7-28 mcg by ity of tablet 09:03: mouth [place] [address] every Medical morning. Branch busPIRone 2021-0 Yes 10mg Take 10 mg [facility] [place] 10 mg 7-28 by mouth ity of tablet 09:03: daily. [address] Branch dextrometho 0 Yes 1{tbl} Take 1 Un [facility] rphan-guaif [...] by mouth ity of 09:03: every 8 [place] [address] (eight) Medical hours as Branch needed. pantoprazol 2-0 Yes 40mg Take 40 mg [facility] e 40 mg EC 7-28 by mouth ity o f tablet 09:03: daily. [address] Branch oxybutynin 2-0 Yes 5mg Take 5 mg [facility] [place] chloride 5 7-28 by mouth 3 ity of mg tablet 09:03: (three) [place] [address] times Medical daily. Branch levothyroxi 2021-0 Yes 112ug Take 112 U nivers ne 112 mcg 7-28 mcg by ity of tablet 09:03: mouth [place] [address] every Medical morning. Branch busPIRone 2021-0 Yes 10mg Take 10 mg [facility] [place] 10 mg 7-28 by mouth ity of tablet 09:03: daily. [address] Branch dextrometho 2021-0 Yes 1{tbl} Take [...] by mouth ity of 09:03: every 8 [place] [address] (eight) Medical hours as Branch needed. pantoprazol 2-0 Yes 40mg Take 40 mg [facility] e 40 mg EC 7-28 by mouth ity o f tablet 09:03: daily. [address] Branch oxybutynin 2-0 Yes 5mg Take 5 mg [facility] [place] chloride 5 7-28 by mouth 3 ity of mg tablet 09:03: (three) [place] [address] times Medical daily. Branch levothyroxi 2-0 Yes 112ug Take 112 U nivers ne 112 mcg 7-28 mcg by ity of tablet 09:03: mouth [place] [address] every Medical morning. Branch busPIRone 2022-0 Yes 10mg Take 10 mg [facility] 10 mg 7-28 by mouth ity of tablet 09:03: daily. [address] Branch dextrometho 2021-0 Yes 1{tbl} Take [...] by mouth ity of 09:03: every 8 [place] [address] (eight) Medical hours as Branch needed. pantoprazol 2021-0 Yes 40mg Take 40 mg [facility] e 40 mg EC 7-28 by mouth ity o f tablet 09:03: daily. [address] Branch oxybutynin 2021-0 Yes 5mg Take 5 mg [facility] [place] chloride 5 7-28 by mouth 3 ity of mg tablet 09:03: (three) [place] [address] times Medical daily. Branch levothyroxi 2021-0 Yes 112ug Take 112 U nivers ne 112 mcg 7-28 mcg by ity of tablet 09:03: mouth [place] [address] every Medical morning. Branch busPIRone 2021-0 Yes 10mg Take 10 mg [facility] [place] 10 mg 7-28 by mouth ity of tablet 09:03: daily. [address] Branch dextrometho 2021-0 Yes 1{tbl} Take [...] by mouth ity of 09:03: every 8 [place] [address] (eight) Medical hours as Branch needed. pantoprazol 2-0 Yes 40mg Take 40 mg [facility] e 40 mg EC 7-28 by mouth ity o f tablet 09:03: daily. [address] Branch oxybutynin 2021-0 Yes 5mg Take 5 mg Un [place] chloride 5 7-28 by mouth 3 ity of mg tablet 09:03: (three) [place] [address] times Medical daily. Branch levothyroxi 2021-0 Yes 112ug Take 112 U nivers ne 112 mcg 7-28 mcg by ity of tablet 09:03: mouth [place] [address] every Medical morning. Branch busPIRone 2021-0 Yes 10mg Take 10 mg [facility] [place] 10 mg 7-28 by mouth ity of tablet 09:03: daily. [address] Branch dextrometho 2021-0 Yes 1{tbl} Take 1 [facility] rphan-guaif 7-28 tablet by ity of enesin 09:03: mouth 2 [place] 30-600 mg 11 (two) Medical per tablet times Branch daily. isosorbide 2021-0 Yes 60mg Take 60 mg U nivers mononitrate 7-28 by mouth ity of 60 mg 24 hr 09:03: [place]. [place] tablet [address] [place] [address] Branch ondansetron 2021-0 Yes 4mg Take 4 mg U nivers 4 mg tablet 7-28 by mouth ity of 09:03: every 8 [place] [address] (eight) Medical hours as Branch needed. pantoprazol 2021-0 Yes 40mg Take 40 mg [facility] e 40 mg EC 7-28 by mouth ity o f tablet 09:03: daily. [address] Branch oxybutynin 2021-0 Yes 5mg Take 5 mg [facility] [place] chloride 5 7-28 by mouth 3 ity of mg tablet 09:03: (three) [place] [address] times Medical daily. Branch levothyroxi 2021-0 Yes 112ug Take 112 U nivers ne 112 mcg 7-28 mcg by ity of tablet 09:03: mouth [place] [address] every Medical morning. Branch busPIRone 2-0 Yes 10mg Take 10 mg [facility] [place] 10 mg 7-28 by mouth ity of tablet 09:03: daily. [address] Branch dextrometho 2021-0 Yes 1{tbl} Take 1 [facility] rphan-guaif 7-28 tablet by ity of enesin 09:03: mouth 2 [place] 30-600 mg 11 (two) Medical per tablet times Branch daily. isosorbide 2022-0 Yes 60mg Take 60 mg U nivers mononitrate 7-28 by mouth ity of 60 mg 24 hr 09:03: [place]. [place] tablet 11 [place] [facility] ondansetron 2-0 Yes 4mg Take 4 mg U nivers 4 mg tablet 7-28 by mouth ity of 09:03: every 8 [place] [address] (eight) Medical hours as Branch needed. pantoprazol 2-0 Yes 40mg Take 40 mg [facility] e 40 mg EC 7-28 by mouth ity o f tablet 09:03: daily. [address] Branch oxybutynin 2021-0 Yes 5mg Take 5 mg Un [place] chloride 5 7-28 by mouth 3 ity of mg tablet 09:03: (three) [place] [address] times Medical daily. Branch levothyroxi 2021-0 Yes 112ug Take 112 U nivers ne 112 mcg 7-28 mcg by ity of tablet 09:03: mouth [place] [address] every Medical morning. Branch busPIRone 2021-0 Yes 10mg Take 10 mg [facility] 10 mg 7-28 by mouth ity of tablet 09:03: daily. [address] Branch dextrometho 2021-0 Yes 1{tbl} Take 1 [facility] rphan-guaif 7-28 tablet by ity of enesin 09:03: mouth 2 [place] 30-600 mg 11 (two) Medical per tablet times Branch daily. isosorbide 2-0 Yes 60mg Take 60 mg U nivers mononitrate 7-28 by mouth ity of 60 mg 24 hr 09:03: [place]. [place] tablet 11 [place] [facility] ondansetron 2-0 Yes 4mg Take 4 mg U nivers 4 mg tablet 7-28 by mouth ity of 09:03: every 8 [place] [address] (eight) Medical hours as Branch needed. pantoprazol 2-0 Yes 40mg Take 40 mg [facility] e 40 mg EC 7-28 by mouth ity o f tablet 09:03: daily. [address] Branch oxybutynin 2-0 Yes 5mg Take 5 mg [facility] [place] chloride 5 7-28 by mouth 3 ity of mg tablet 09:03: (three) [place] [address] times Medical daily. Branch levothyroxi 2-0 Yes 112ug Take 112 U nivers ne 112 mcg 7-28 mcg by ity of tablet 09:03: mouth [place] [address] every Medical morning. Branch busPIRone 0 Yes 10mg Take 10 mg Un [facility] 10 mg 7-28 by mouth ity of tablet 09:03: daily. [address] Branch dextrometho 0 Yes 1{tbl} Take 1 [facility] rphan-guaif 7-28 tablet by ity of enesin 09:03: mouth 2 [place] 30-600 mg 11 (two) Medical per tablet times Branch daily. isosorbide 2021-0 Yes 60mg Take 60 mg U nivers mononitrate 7-28 by mouth ity of 60 mg 24 hr 09:03: daily. [place] tablet [address] [place] [address] Branch ondansetron 0 Yes 4mg Take 4 mg U nivers 4 mg tablet 7-28 by mouth ity of 09:03: every 8 [place] [address] (eight) Medical hours as Branch needed. pantoprazol 0 Yes 40mg Take 40 mg [facility] e 40 mg EC 7-28 by mouth ity o f tablet 09:03: daily. [address] oxybutynin 0 Yes 5mg Take 5 mg Un [facility] chloride 5 7-28 by mouth 3 ity of mg tablet 09:03: (three) [place] [address] times [facility] daily. Branch levothyroxi 0 Yes 112ug Take 112 U nivers ne 112 mcg 7-28 mcg by ity of tablet 09:03: mouth [place] [address] every Medical morning. Branch busPIRone 0 Yes 10mg Take 10 mg Un [place] 10 mg 7-28 by mouth ity of tablet 09:03: daily. [address] Branch dextrometho Yes 1{tbl} Take 1 Un [place] rphan-guaif 7-28 tablet by ity of enesin 09:03: mouth 2 [place] 30-600 mg 11 (two) Medical per tablet times Branch daily. isosorbide 2021-0 Yes 60mg Take 60 mg U nivers mononitrate 7-28 by mouth ity of 60 mg 24 hr 09:03: daily. [place] tablet [address] [place] [address] Branch ondansetron 2021-0 Yes 4mg Take 4 mg U nivers 4 mg tablet 7-28 by mouth ity of 09:03: every 8 [place] [address] (eight) Medical hours as Branch needed. pantoprazol 2021-0 Yes 40mg Take 40 mg [facility] e 40 mg EC 7-28 by mouth ity o f tablet 09:03: daily. [address] Branch oxybutynin 2021-0 Yes 5mg Take 5 mg Un [place] chloride 5 7-28 by mouth 3 ity of mg tablet 09:03: (three) [place] [address] times Medical daily. Branch levothyroxi 2021-0 Yes 112ug Take 112 U nivers ne 112 mcg 7-28 mcg by ity of tablet 09:03: mouth [place] [address] every Medical morning. Branch busPIRone 2021-0 Yes 10mg Take 10 mg Un [place] 10 mg 7-28 by mouth ity of tablet 09:03: daily. [address] Branch dextrometho 2021-0 Yes 1{tbl} Take 1 Un [place] rphan-guaif 7-28 tablet by ity of enesin 09:03: mouth 2 [place] 30-600 [facility] (two) Medical per tablet times Branch daily. isosorbide 2021-0 Yes 60mg Take 60 mg U nivers mononitrate 7-28 by mouth ity of 60 mg 24 hr 09:03: [place] [address] Branch ondansetron 2021-0 Yes 4mg Take 4 mg U nivers 4 mg tablet 7-28 by mouth ity of 09:03: every 8 [place] [address] (eight) Medical hours as Branch needed. pantoprazol 2021-0 Yes 40mg Take 40 mg [facility] e 40 mg EC 7-28 by mouth ity o f tablet 09:03: daily. [address] Branch oxybutynin 2021-0 Yes 5mg Take 5 mg Un [place] chloride 5 7-28 by mouth 3 ity of mg tablet 09:03: (three) [place] [address] times Medical daily. Branch levothyroxi 2021-0 Yes 112ug Take 112 U nivers ne 112 mcg 7-28 mcg by ity of tablet 09:03: mouth [place] every Medical morning. Branch busPIRone 2021-0 Yes 10mg Take 10 mg Un [place] 10 mg 7-28 by mouth ity of tablet 09:03: daily. [address] Branch dextrometho 2021-0 Yes 1{tbl} Take [...] by mouth ity of 09:03: every 8 [place] 11 (eight) Medical hours as Branch needed. pantoprazol 2021-0 Yes 40mg Take 40 mg [facility] e 40 mg EC 7-28 by mouth ity o f tablet 09:03: daily. [place] [address] Medical Branch amoxicillin 2021-0 Yes [id number] 875mg Take 1 [facility] 875 mg 7-28 tablet by ity of tablet 00:00: mouth in [place] [address] the Medical morning [place] and 1 tablet in the evening. amoxicillin 2021-0 Yes [id number] 875mg Take 1 [facility] 875 mg 7-28 tablet by ity of tablet 00:00: mouth in [place] [address] the Medical morning Branch and 1 tablet in the evening. amoxicillin 202-0 Yes [id number] 875mg Take 1 [facility] 875 mg 7-28 tablet by ity of tablet 00:00: mouth in [place] [address] the Medical morning Branch and 1 tablet in the evening. amoxicillin 2021-0 Yes [id number] 875mg Take 1 [facility] 875 mg 7-28 tablet by ity of tablet 00:00: mouth in [place] [address] the [facility] morning [place] and 1 tablet in the evening. amoxicillin 2022-0 Yes [id number] 875mg Take 1 [facility] 875 mg 7-28 tablet by ity of tablet 00:00: mouth in [place] [address] the Medical morning [place] and 1 tablet in the evening. amoxicillin 2022-0 Yes [id number] 875mg Take 1 [facility] 875 mg 7-28 tablet by ity of tablet 00:00: mouth in [place] [address] the [facility] morning [place] and 1 tablet in the evening. amoxicillin 2022-0 Yes [id number] 875mg Take 1 [facility] 875 mg 7-28 tablet by ity of tablet 00:00: mouth in [place] [address] the [facility] morning [place] and 1 tablet in the evening. amoxicillin 2022-0 Yes [id number] 875mg Take 1 [facility] 875 mg 7-28 tablet by ity of tablet 00:00: mouth in [place] [address] the Medical morning Branch and 1 tablet in the evening. amoxicillin 2022-0 Yes [id number] 875mg Take 1 [facility] 875 mg 7-28 tablet by ity of tablet 00:00: mouth in [place] [address] the Medical morning Branch and 1 tablet in the evening. amoxicillin 2-0 Yes [id number] 875mg Take 1 [facility] 875 mg 7-28 tablet by ity of tablet 00:00: mouth in [place] [address] the Medical morning Branch and 1 tablet in the evening. amoxicillin 2-0 Yes [id number] 875mg Take 1 [facility] 875 mg 7-28 tablet by ity of tablet 00:00: mouth in [place] [address] the Medical morning Branch and 1 tablet in the evening. amoxicillin 2021-0 Yes [id number] 875mg Take 1 [facility] 875 mg 7-28 tablet by ity of tablet 00:00: mouth in [place] [address] the Medical morning Branch and 1 tablet in the evening. amoxicillin 2021-0 Yes [id number] 875mg Take 1 [facility] 875 mg 7-28 tablet by ity of tablet 00:00: mouth in [place] [address] the Medical morning Branch and 1 tablet in the evening. amoxicillin 2021-0 Yes [id number] 875mg Take 1 [facility] 875 mg 7-28 tablet by ity of tablet 00:00: mouth in [place] [address] the Medical morning Branch and 1 tablet in the evening. amoxicillin 2021-0 Yes [id number] 875mg Take 1 [facility] 875 mg 7-28 tablet by ity of tablet 00:00: mouth in [place] [address] the Medical morning Branch and 1 tablet in the evening. amoxicillin 2021-0 Yes [id number] 875mg Take 1 [facility] 875 mg 7-28 tablet by ity of tablet 00:00: mouth in [place] [address] the Medical morning Branch and 1 tablet in the evening. Nebulizer & 2021-0 Yes [id number] Use as Univers Compressor 2-08 directed ity o f For Neb 00:00: [place] 00 [facility] Nebulizer & 2021-0 Yes [id number] Use as Univers Compressor 2-08 directed ity o f For Neb 00:00: [place] [facility] Nebulizer & 2021-0 Yes [id number] Use as Univers Compressor 2-08 directed ity o f For Neb 00:00: Medical Branch Nebulizer & 2021-0 Yes [id number] Use as Univers Compressor 2-08 directed ity o f For Neb 00:00: Medical Branch Nebulizer & 2021-0 Yes [id number] Use as Univers Compressor 2-08 directed ity o f For Neb 00:00: Medical Branch albuterol 2021-0 Yes [id number] 2.5mg Inhale 3 Univers 2.5 mg /3 2-08 mL every 4 ity of mL (0.083 00:00: (four) [place] %) 00 hours as Medical nebulizer needed for Bran ch solution Wheezing or Shortness of Breath. albuterol 2021-0 Yes [id number] 2{puff} Inhale 2 Univers 90 2-08 Puffs ity of mcg/actuati 00:00: every 4 [place] on inhaler 00 (four) Medical hours as Branch needed for Wheezing or Shortness of Breath. Nebulizer & 2021-0 Yes [id number] Use as Univers Compressor 2-08 directed ity o f For Neb 00:00: Medical Branch albuterol 2021-0 Yes [id number] 2.5mg Inhale 3 Univers 2.5 mg /3 2-08 mL every 4 ity of mL (0.083 00:00: (four) [place] %) 00 hours as Medical nebulizer needed for Bran ch solution Wheezing or Shortness of Breath. albuterol 2021-0 Yes [id number] 2{puff} Inhale 2 Univers 90 2-08 Puffs ity of mcg/actuati 00:00: every 4 [place] on inhaler 00 (four) Medical hours as Branch needed for Wheezing or Shortness of Breath. Nebulizer & 2021-0 Yes [id number] Use as Univers Compressor 2-08 directed ity o f For Neb 00:00: Medical Branch albuterol 2021-0 Yes [id number] 2.5mg Inhale 3 Univers 2.5 mg /3 2-08 mL every 4 ity of mL (0.083 00:00: (four) [place] %) 00 hours as Medical nebulizer needed for Bran ch solution Wheezing or Shortness of Breath. albuterol 2021-0 Yes [id number] 2{puff} Inhale 2 Univers 90 2-08 Puffs ity of mcg/actuati 00:00: every 4 [place] on inhaler 00 (four) Medical hours as Branch needed for Wheezing or Shortness of Breath. Nebulizer & 2021-0 Yes [id number] Use as Univers Compressor 2-08 directed ity o f For Neb 00:00: Medical Branch albuterol 2021-0 Yes [id number] 2.5mg Inhale 3 Univers 2.5 mg /3 2-08 mL every 4 ity of mL (0.083 00:00: (four) [place] %) 00 hours as Medical nebulizer needed for Bran ch solution Wheezing or Shortness of Breath. albuterol 2021-0 Yes [id number] 2{puff} Inhale 2 Univers 90 2-08 Puffs ity of mcg/actuati 00:00: every 4 [place] on inhaler 00 (four) Medical hours as Branch needed for Wheezing or Shortness of Breath. Nebulizer & 2021-0 Yes [id number] Use as Univers Compressor 2-08 directed ity o f For Neb 00:00: Medical Branch albuterol 2021-0 Yes [id number] 2.5mg Inhale 3 Univers 2.5 mg /3 2-08 mL every 4 ity of mL (0.083 00:00: (four) [place] %) 00 hours as Medical nebulizer needed for Bran ch solution Wheezing or Shortness of Breath. albuterol 2021-0 Yes [id number] 2{puff} Inhale 2 Univers 90 2-08 Puffs ity of mcg/actuati 00:00: every 4 [place] on inhaler 00 (four) Medical hours as Branch needed for Wheezing or Shortness of Breath. Nebulizer & 2021-0 Yes [id number] Use as Univers Compressor 2-08 directed ity o f For Neb 00:: Medical Branch albuterol 2021-0 Yes [id number] 2.5mg Inhale 3 Univers 2.5 mg /3 2-08 mL every 4 ity of mL (0.083 00:00: (four) [place] %) 00 hours as Medical nebulizer needed for Bran ch solution Wheezing or Shortness of Breath. albuterol 2021-0 Yes [id number] 2{puff} Inhale 2 Univers 90 2-08 Puffs ity of mcg/actuati 00:00: every 4 [place] on inhaler 00 (four) Medical hours as Branch needed for Wheezing or Shortness of Breath. Nebulizer & 2021-0 Yes [id number] Use as Univers Compressor 2-08 directed ity o f For Neb 00:00: Medical Branch albuterol 2021-0 Yes [id number] 2.5mg Inhale 3 Univers 2.5 mg /3 2-08 mL every 4 ity of mL (0.083 00:00: (four) [place] %) 00 hours as Medical nebulizer needed for Bran ch solution Wheezing or Shortness of Breath. albuterol 0 Yes [id number] 2{puff} Inhale 2 Univers 90 2-08 Puffs ity of mcg/actuati 00:00: every 4 [place] on inhaler 00 (four) Medical hours as Branch needed for Wheezing or Shortness of Breath. Nebulizer & 2021-0 Yes [id number] Use as [facility] Compressor 2-08 directed ity o f For Neb 00:00: Medical Branch Nebulizer & 2021-0 Yes [id number] Use as [facility] Compressor 2-08 directed ity o f For Neb 00:00: Medical Branch Nebulizer & 2021-0 Yes [id number] Use as [facility] Compressor 2-08 directed ity o f For Neb 00:00: Medical Branch Nebulizer & 2021-0 Yes [id number] Use as [facility] Compressor 2-08 directed ity o f For Neb 00:00: Medical Branch Nebulizer & 2021-0 Yes [id number] Use as [facility] Compressor 2-08 directed ity o f For Neb 00:00: Medical Branch Nebulizer & 2021-0 Yes [id number] Use as [facility] Compressor 2-08 directed ity o f For Neb 00:00: Medical Branch Nebulizer & 2021-0 Yes [id number] Use as [facility] Compressor 2-08 directed ity o f For Neb 00:00: Medical Branch albuterol 2021-0 2022- No [id number] 2.5mg Inhale 3 Univers 2.5 mg /3 2-08 10-14 mL every 4 ity of mL (0.083 00:00: 00:00 (four) [place] %) 00 :00 hours as Medical nebulizer needed for Bran ch solution Wheezing or Shortness of Breath. albuterol 2021- No [id number] 2{puff} Inhale 2 Univers 90 2-08 10-14 Puffs ity of mcg/actuati 00:00: 00:00 every 4 [place] on inhaler 00 :00 (four) Medical hours as Branch needed for Wheezing or Shortness of Breath. fluticasone 2020-08 Yes [id number] 1{puff} Inhale 1 Univers -umeclidin- 1-11 Puff ity of vilanter 00:00: daily. [place] ([facility] 00 Medical ELLIPTA) Branch 100-62.5-25 mcg DsDv fluticasone 2020-08 Yes [id number] 1{puff} Inhale 1 Univers -umeclidin- 1-11 Puff ity of vilanter 00:00: daily. [place] ([facility] 00 Medical ELLIPTA) Branch 100-62.5-25 mcg DsDv fluticasone 2020-08 Yes [id number] 1{puff} Inhale 1 Univers -umeclidin- 1-11 Puff ity of vilanter 00:00: daily. [place] ([facility] 00 Medical ELLIPTA) Branch 100-62.5-25 mcg DsDv fluticasone 2020-08 Yes [id number] 1{puff} Inhale 1 Univers -umeclidin- 1-11 Puff ity of vilanter 00:00: daily. [place] ([place] [id number] Medical ELLIPTA) Branch 100-62.5-25 mcg DsDv fluticasone 2020-08 Yes [id number] 1{puff} Inhale 1 Univers -umeclidin- 1-11 Puff ity of vilanter 00:00: daily. [place] ([facility] 00 Medical ELLIPTA) Branch 100-62.5-25 mcg DsDv fluticasone 2020-08 Yes [id number] 1{puff} Inhale 1 Univers -umeclidin- 1-11 Puff ity of vilanter 00:00: daily. [place] ([facility] 00 Medical ELLIPTA) Branch 100-62.5-25 mcg DsDv fluticasone 2020-08 Yes [id number] 1{puff} Inhale 1 Univers -umeclidin- 1-11 Puff ity of vilanter 00:00: daily. [place] ([facility] 00 Medical ELLIPTA) Branch 100-62.5-25 mcg DsDv fluticasone 2020-08 Yes [id number] 1{puff} Inhale 1 Univers -umeclidin- 1-11 Puff ity of vilanter 00:00: daily. [place] ([facility] 00 Medical ELLIPTA) Branch 100-62.5-25 mcg DsDv fluticasone 2020-08- No [id number] 1{puff} Inhale 1 Univers -umeclidin- 1-11 10-27 Puff ity of vilanter 00:00: 00:00 daily. [place] ([facility] 00 :00 Medical ELLIPTA) Branch 100-62.5-25 mcg DsDv fluticasone 2020-08- No [id number] 1{puff} Inhale 1 Univers -umeclidin- 1-11 10-27 Puff ity of vilanter 00:00: 00:00 daily. [place] ([facility] 00 :00 Medical ELLIPTA) Branch 100-62.5-25 mcg DsDv acetaminoph Yes Take by Met hodi en (TYLENOL [address] ORAL) 09:53: needed. Hospita 01 l amoxicillin Yes 1{tbl} Q.5D Take 1 [facility] -pot [address] clavulanate 09:53: mouth 2 Hos [facility] (Augmentin) 01 (two) l 500-125 mg times a per tablet day. folic Yes Take by Methodi acid/vit B [address] complex and 09:53: Hospit a C 01 l (RENAL-BLAYNE ORAL) albuterol Yes 2{puff} Q6H Inhale 2 M ethodi (PROAIR 9-[address] HFA) 90 09:53: every 6 Hospita mcg/actuati 01 (six) l on inhaler hours as needed. fluticasone Yes Inhale 1 [facility] -umeclidin- 9-[address] vilanter 09:53: s as Hospita (Trelegy 01 needed. l Ellipta) 100-62.5-25 mcg blister with device powder for inhalation acetaminoph Yes Take by Met hodi en (TYLENOL 9-[address] ORAL) 09:53: needed. Hospita 01 l amoxicillin Yes 1{tbl} Q.5D Take 1 Me [facility] -pot 9-[address] clavulanate 09:53: mouth 2 Hos [facility] (Augmentin) 01 (two) l 500-125 mg times a per tablet day. folic 0 Yes Take by Methodi acid/vit B 9-[address] complex and 09:53: Hospit a C 01 l (RENAL-BLAYNE ORAL) albuterol Yes 2{puff} Q6H Inhale 2 M ethodi (PROAIR 9-[address] HFA) 90 09:53: every 6 Hospita mcg/actuati 01 (six) l on inhaler hours as needed. fluticasone Yes Inhale 1 Me [facility] -umeclidin- 9-[address] vilanter 09:53: s as Hospita (Trelegy 01 needed. l Ellipta) 100-62.5-25 mcg blister with device powder for inhalation albuterol Yes 2{puff} Q6H Inhale 2 M ethodi (PROAIR 9-[address] HFA) 90 09:53: every 6 Hospita mcg/actuati 01 (six) l on inhaler hours as needed. fluticasone Yes Inhale 1 [facility] -umeclidin- 9-[address] [facility] 09:53: [facility] (Trelegy 01 needed. l Ellipta) 100-62.5-25 mcg blister with device powder for inhalation acetaminoph Yes Take by [facility] en (TYLENOL 9-[address] ORAL) 09:53: needed. Hospita 01 l amoxicillin 0 Yes 1{tbl} Q.5D Take 1 [facility] -pot 9-[address] clavulanate 09:53: mouth 2 Hos gina (Augmentin) 01 (two) l 500-125 mg times a per tablet day. folic Yes Take by [facility] acid/vit B 9-[address] complex and 09:53: Hospit a C 01 l (RENAL-BLAYNE ORAL) lidocaine-p 2020-0 2021- No Apply Meth luz rilocaine 03-[address] (EMLA) 00:00: 04:59 as needed Hospi ta 2.5-2.5 % 00 :00 for mild l cream pain. Apply to area 30 - 45 minutes prior to dialysis treatment. lidocaine-p 2021-0 2021- No Apply Meth luz rilocaine 03-[address] (EMLA) 00:00: 04:59 as needed Hospi ta 2.5-2.5 % 00 :00 for mild l cream pain. Apply to area 30 - 45 minutes prior to dialysis treatment. atenoloL 2021-0 Yes 25mg QD Take 25 mg [facility] (TENORMIN) 7-[address] 25 MG 00:00: daily. [facility]ospita tablet 00 l atenoloL 1-0 Yes 25mg QD Take 25 mg [facility] (TENORMIN) 7-[address] 25 MG 00:00: daily. [facility]ospita tablet 00 l atenoloL 1-0 Yes 25mg QD Take 25 mg [facility] (TENORMIN) 7-[address] 25 MG 00:00: daily. [facility]osp[facility] tablet 00 l doxazosin 2021-0 Yes [facility] (CARDURA) 4 6-11 [facility] MG tablet 00:00: Hospita 00 l doxazosin 2021-0 Yes [facility] (CARDURA) 4 6-11 [facility] MG tablet 00:00: [facility]ospita 00 l doxazosin 2021-0 Yes [facility] (CARDURA) 4 6-11 [facility] MG tablet 00:00: Hospita 00 l hydrALAZINE 2021-0 Yes Method i (APRESOLINE 6-09 st ) 50 MG 00:00: Hospita tablet 00 l hydrALAZINE 2021-0 Yes [facility] (APRESOLINE 6-09 st ) 50 MG 00:00: Hospita tablet 00 l hydrALAZINE 2021-0 Yes [facility] (APRESOLINE 6-09 st ) 50 MG 00:00: Hospita tablet 00 l losartan 2021-0 Yes [facility] (COZAAR) 50 5-28 [facility] MG tablet 00:00: [facility]ospita 00 l losartan 2021-0 Yes [facility] (COZAAR) 50 5-[facility] MG tablet 00:00: [facility]ospita 00 l losartan 2020-0 Yes [facility] (COZAAR) 50 5-28 [facility] MG tablet 00:00: Hospita 00 l hydrOXYchlo 2020-0 Yes 200mg QD Take 200 M ethodi roQUINE 5-[address] (PLAQUENIL) 00:00: mouth Hospi ta 200 mg 00 daily. l tablet hydrOXYchlo 2020-0 Yes 200mg QD Take 200 M ethodi roQUINE 5-[address] (PLAQUENIL) 00:00: mouth Hospi ta 200 mg 00 daily. l tablet hydrOXYchlo 2020-0 Yes 200mg QD Take 200 M ethodi roQUINE 5-[address] (PLAQUENIL) 00:00: mouth Hospi ta 200 mg 00 daily. l tablet furosemide 2020-0 Yes 40mg QD Take 40 mg M [facility]i (LASIX) 40 5-[address] mg tablet 00:00: daily. Hospit a 00 l furosemide 2020-0 Yes 40mg QD Take 40 mg M [facility]i (LASIX) 40 5-[address] mg tablet 00:00: daily. Hospit a 00 l furosemide 2020-0 Yes 40mg QD Take 40 mg M ethodi (LASIX) 40 5-[address] mg tablet 00:00: daily. Hospit a 00 l pantoprazol 2020-0 Yes TWICE Metho di e 5-[address] (PROTONIX) 00:00: Hospita 40 MG EC 00 l tablet pantoprazol 2020-0 Yes TWICE Metho di e 5-[address] (PROTONIX) 00:00: Hospita 40 MG EC 00 l tablet pantoprazol 2020-0 Yes TWICE Metho di e 5-[address] (PROTONIX) 00:00: Hospita 40 MG EC 00 l tablet hydrOXYzine 2020-0 Yes 1{tbl} 1 tablet. [facility] (VISTARIL) 12-07 st 25 MG 00:00: Hospita capsule 00 l hydrOXYzine 2020-0 Yes 1{tbl} 1 tablet. [facility] (VISTARIL) 12-07 st 25 MG 00:00: Hospita capsule 00 l hydrOXYzine 2020-0 Yes 1{tbl} 1 tablet. [facility] (VISTARIL) 5-04 st 25 MG 00:00: Hospita capsule 00 l metoclopram 2020-0 Yes 5mg Take 5 mg M ethodi tish 2-[address] (REGLAN) 5 00:00: Hospita MG tablet 00 l metoclopram 1-0 Yes 5mg Take 5 mg M ethodi tish 2-[address] (REGLAN) 5 00:00: Hospita MG tablet 00 l metoclopram 1-0 Yes 5mg Take 5 mg M ethodi tish 2-[address] (REGLAN) 5 00:00: Hospita MG tablet 00 l polyethylen 2020-0 Yes [id number] 17g Take 17 g [facility] glycol 2-04 by mouth 2 ity o f 3350 17 00:00: (two) [place] gram/dose 00 times Medical powder daily. Branch losartan 50 2020-0 Yes [id number] 50mg Take 1 Un [facility] mg tablet 2-04 tablet by ity o f 00:00: mouth 2 00 (two) Medical times Branch daily. polyethylen 2020-0 Yes [id number] 17g Take 17 g [facility] e glycol 2-04 by mouth 2 ity o f 3350 17 00:00: (two) [place] gram/dose 00 times Medical powder daily. Branch losartan 50 2020-0 Yes [id number] 50mg Take 1 [facility] mg tablet 2-04 tablet by ity o f 00:00: mouth 2 00 (two) Medical times Branch daily. polyethylen 2020-0 Yes [id number] 17g Take 17 g [facility] e glycol 2-04 by mouth 2 ity o f 3350 17 00:00: (two) [place] gram/dose 00 times Medical powder daily. Branch losartan 50 2020-0 Yes [id number] 50mg Take 1 [facility] mg tablet 2-04 tablet by ity o f 00:00: mouth 2 00 (two) Medical times Branch daily. polyethylen 2021-0 Yes [id number] 17g Take 17 g [facility] e glycol 2-04 by mouth 2 ity o f 3350 17 00:00: (two) [place] gram/dose 00 times Medical powder daily. Branch losartan 50 2020-0 Yes [id number] 50mg Take 1 [facility] mg tablet 2-04 tablet by ity o f 00:00: mouth 2 [place] 00 (two) Medical times Branch daily. polyethylen 2020-0 Yes [id number] 17g Take 17 g [facility] e glycol 2-04 by mouth 2 ity o f 3350 17 00:00: (two) [place] gram/dose 00 times Medical powder daily. Branch losartan 50 2020-0 Yes [id number] 50mg Take 1 [facility] mg tablet 2-04 tablet by ity o f 00:00: mouth 2 00 (two) Medical times Branch daily. polyethylen 2020-0 Yes [id number] 17g Take 17 g [facility] e glycol 2-04 by mouth 2 ity o f 3350 17 00:00: (two) [place] gram/dose 00 times Medical powder daily. Branch losartan 50 2020-0 Yes [id number] 50mg Take 1 [facility] mg tablet 2-04 tablet by ity o f 00:00: mouth 2 00 (two) Medical times Branch daily. polyethylen 2020-0 Yes [id number] 17g Take 17 g [facility] e glycol 2-04 by mouth 2 ity o f 3350 17 00:00: (two) [place] gram/dose 00 times Medical powder daily. Branch losartan 50 2020-0 Yes [id number] 50mg Take 1 [facility] mg tablet 2-04 tablet by ity o f 00:00: mouth 2 00 (two) Medical times Branch daily. polyethylen 2020-0 Yes [id number] 17g Take 17 g [facility] e glycol 2-04 by mouth 2 ity o f 3350 17 00:00: (two) [place] gram/dose 00 times Medical powder daily. Branch losartan 50 2020-0 Yes [id number] 50mg Take 1 [facility] mg tablet 2-04 tablet by ity o f 00:00: mouth 2 00 (two) Medical times Branch daily. polyethylen 2020-0 Yes [id number] 17g Take 17 g [facility] e glycol 2-04 by mouth 2 ity o f 3350 17 00:00: (two) [place] gram/dose 00 times Medical powder daily. Branch losartan 50 2020-0 Yes [id number] 50mg Take 1 [facility] mg tablet 2-04 tablet by ity o f 00:00: mouth 2 00 (two) Medical times Branch daily. polyethylen 2020-0 Yes [id number] 17g Take 17 g [facility] glycol 2-04 by mouth 2 ity o f 3350 17 00:00: (two) [place] gram/dose 00 times Medical powder daily. Branch losartan 50 2020-0 Yes [id number] 50mg Take 1 [facility] mg tablet 2-04 tablet by ity o f 00:00: mouth 2 00 (two) Medical times Branch daily. polyethylen 2020-0 Yes [id number] 17g Take 17 g [facility] e glycol 2-04 by mouth 2 ity o f 3350 17 00:00: (two) [place] gram/dose 00 times Medical powder daily. Branch losartan 50 2020-0 Yes [id number] 50mg Take 1 [facility] mg tablet 2-04 tablet by ity o f 00:00: mouth 2 00 (two) Medical times Branch daily. polyethylen 2020-0 Yes [id number] 17g Take 17 g [facility] glycol 2-04 by mouth 2 ity o f 3350 17 00:00: (two) [place] gram/dose 00 times Medical powder daily. Branch losartan 50 2020-0 Yes [id number] 50mg Take 1 [facility] mg tablet 2-04 tablet by ity o f 00:00: mouth 2 (two) Medical times Branch daily. polyethylen 2020-0 Yes [id number] 17g Take 17 g [facility] e glycol 2-04 by mouth 2 ity o f 3350 17 00:00: (two) [place] gram/dose 00 times Medical powder daily. Branch losartan 50 2020-0 Yes [id number] 50mg Take 1 [facility] mg tablet 2-04 tablet by ity o f 00:00: mouth 2 00 (two) Medical times Branch daily. polyethylen 2020-0 Yes [id number] 17g Take 17 g [facility] e glycol 2-04 by mouth 2 ity o f 3350 17 00:00: (two) [place] gram/dose 00 times Medical powder daily. Branch losartan 50 2020-0 Yes [id number] 50mg Take 1 [facility] mg tablet 2-04 tablet by ity o f 00:00: mouth 2 00 (two) Medical times Branch daily. polyethylen 2020-0 Yes [id number] 17g Take 17 g [facility] e glycol 2-04 by mouth 2 ity o f 3350 17 00:00: (two) [place] gram/dose 00 times Medical powder daily. Branch losartan 50 2020-0 Yes [id number] 50mg Take 1 [facility] mg tablet 2-04 tablet by ity o f 00:00: mouth 2 00 (two) Medical times Branch daily. polyethylen 1-0 Yes [id number] 17g Take 17 g [facility] e glycol 2-04 by mouth 2 ity o f 3350 17 00:00: (two) [place] gram/dose 00 times Medical powder daily. Branch losartan 50 2020-0 Yes [id number] 50mg Take 1 [facility] mg tablet 2-04 tablet by ity o f 00:00: mouth 2 00 (two) Medical times Branch daily. polyethylen 2020-0 Yes [id number] 17g Take 17 g [facility] e glycol 2-04 by mouth 2 ity o f 3350 17 00:00: (two) [place] gram/dose 00 times Medical powder daily. Branch losartan 50 2020-0 Yes [id number] 50mg Take 1 [facility] mg tablet 2-04 tablet by ity o f 00:00: mouth 2 00 (two) Medical times Branch daily. polyethylen 2020-0 Yes [id number] 17g Take 17 g [facility] e glycol 2-04 by mouth 2 ity o f 3350 17 00:00: (two) [place] gram/dose 00 times Medical powder daily. Branch losartan 50 2020-0 Yes [id number] 50mg Take 1 [facility] mg tablet 2-04 tablet by ity o f 00:00: mouth 2 00 (two) Medical times Branch daily. cyanocobala 2020-0 Yes 1000ug Take 1,000 [facility] min 1-[address] (VITAMIN 00:00: mouth. [facility]osp[facility] B-12) 1000 00 l MCG tablet ondansetron 2020-0 Yes 1{tbl} Q6H Take 1 [facility] (ZOFRAN) 4 1-[address] MG tablet 00:00: mouth [facility]osp[facility] 00 Every 6 l hours while awake as needed (RT). cyanocobala 2020-0 Yes 1000ug Take 1,000 [facility] min 1-[address] (VITAMIN 00:00: mouth. [facility]ospita B-12) 1000 00 l MCG tablet ondansetron 2020-0 Yes 1{tbl} Q6H Take 1 [facility] (ZOFRAN) 4 1-[address] MG tablet 00:00: mouth [facility]ospita 00 Every 6 l hours while awake as needed (RT). vitamin 2020-0 Yes [id number] 1000ug Take 1 U nivers B-12 1,000 1-17 tablet by ity of mcg tablet 00:00: mouth [place] 00 daily. Medical Branch calcitrioL 2020-0 Yes [id number] .5ug Take 1 [facility] 0.5 mcg 1-17 capsule by ity of capsule 00:00: mouth [place] 00 daily. Medical Branch vitamin 2020-0 Yes [id number] 1000ug Take 1 U nivers B-12 1,000 1-17 tablet by ity of mcg tablet 00:00: mouth [place] 00 daily. Medical Branch calcitrioL 2020-0 Yes [id number] .5ug Take 1 [facility] 0.5 mcg 1-17 capsule by ity of capsule 00:00: mouth [place] 00 daily. Medical [facility] vitamin 2020-0 Yes [id number] 1000ug Take 1 U nivers B-12 1,000 1-17 tablet by ity of mcg tablet 00:00: mouth [place] 00 daily. Medical Branch calcitrioL 2020-0 Yes [id number] .5ug Take 1 [facility] 0.5 mcg 1-17 capsule by ity of capsule 00:00: mouth [place] 00 daily. Medical [facility] vitamin 2020-0 Yes [id number] 1000ug Take 1 U nivers B-12 1,000 1-17 tablet by ity of mcg tablet 00:00: mouth [place] 00 daily. Medical Branch calcitrioL 2020-0 Yes [id number] .5ug Take 1 [facility] 0.5 mcg 1-17 capsule by ity of capsule 00:00: mouth [place] 00 daily. Medical [facility] vitamin 2020-0 Yes [id number] 1000ug Take 1 U nivers B-12 1,000 1-17 tablet by ity of mcg tablet 00:00: mouth [place] 00 daily. Medical Branch calcitrioL 2020-0 Yes [id number] .5ug Take 1 [facility] 0.5 mcg 1-17 capsule by ity of capsule 00:00: mouth [place] 00 daily. Medical Branch vitamin 2020-0 Yes [id number] 1000ug Take 1 U nivers B-12 1,000 1-17 tablet by ity of mcg tablet 00:00: mouth [place] 00 daily. Medical Branch calcitrioL 2020-0 Yes [id number] .5ug Take 1 [facility] 0.5 mcg 1-17 capsule by ity of capsule 00:00: mouth [place] 00 daily. Medical Branch vitamin 2021-0 Yes [id number] 1000ug Take 1 U nivers B-12 1,000 1-17 tablet by ity of mcg tablet 00:00: mouth [place] 00 daily. [facility] Branch calcitrioL 2020-0 Yes [id number] .5ug Take 1 Univers 0.5 mcg 1-17 capsule by ity of capsule 00:00: mouth [place] 00 daily. [facility] Branch vitamin 2020-0 Yes [id number] 1000ug Take 1 U nivers B-12 1,000 1-17 tablet by ity of mcg tablet 00:00: mouth [place] 00 daily. [facility] Branch calcitrioL 2020-0 Yes [id number] .5ug Take 1 Univers 0.5 mcg 1-17 capsule by ity of capsule 00:00: mouth [place] 00 daily. [facility] Branch vitamin 2020-0 Yes [id number] 1000ug Take 1 U nivers B-12 1,000 1-17 tablet by ity of mcg tablet 00:00: mouth [place] 00 daily. [facility] Branch calcitrioL 2020-0 Yes [id number] .5ug Take 1 Univers 0.5 mcg 1-17 capsule by ity of capsule 00:00: mouth [place] 00 daily. [facility] Branch vitamin 2020-0 Yes [id number] 1000ug Take 1 U nivers B-12 1,000 1-17 tablet by ity of mcg tablet 00:00: mouth [place] 00 daily. [facility] Branch calcitrioL 2020-0 Yes [id number] .5ug Take 1 Univers 0.5 mcg 1-17 capsule by ity of capsule 00:00: mouth [place] 00 daily. [facility] Branch vitamin 1-0 Yes [id number] 1000ug Take 1 U nivers B-12 1,000 1-17 tablet by ity of mcg tablet 00:00: mouth [place] 00 daily. [facility] Branch calcitrioL 2020-0 Yes [id number] .5ug Take 1 Univers 0.5 mcg 1-17 capsule by ity of capsule 00:00: mouth [place] 00 daily. [facility] vitamin 2021-0 Yes [id number] 1000ug Take 1 U nivers B-12 1,000 1-17 tablet by ity of mcg tablet 00:00: mouth [place] 00 daily. [facility] Branch calcitrioL 2020-0 Yes [id number] .5ug Take 1 Univers 0.5 mcg 1-17 capsule by ity of capsule 00:00: mouth [place] 00 daily. Medical Branch vitamin 2020-0 Yes [id number] 1000ug Take 1 U nivers B-12 1,000 1-17 tablet by ity of mcg tablet 00:00: mouth [place] 00 daily. Medical Branch calcitrioL 2020-0 Yes [id number] .5ug Take 1 [facility] 0.5 mcg 1-17 capsule by ity of capsule 00:00: mouth [place] 00 daily. Medical Branch vitamin 2020-0 Yes [id number] 1000ug Take 1 U nivers B-12 1,000 1-17 tablet by ity of mcg tablet 00:00: mouth [place] 00 daily. [facility] Branch calcitrioL 2020-0 Yes [id number] .5ug Take 1 Univers 0.5 mcg 1-17 capsule by ity of capsule 00:00: mouth [place] 00 daily. [facility] Branch vitamin 2020-0 Yes [id number] 1000ug Take 1 U nivers B-12 1,000 1-17 tablet by ity of mcg tablet 00:00: mouth [place] 00 daily. [facility] Branch calcitrioL 2020-0 Yes [id number] .5ug Take 1 Univers 0.5 mcg 1-17 capsule by ity of capsule 00:00: mouth [place] 00 daily. [facility] Branch vitamin 2020-0 Yes [id number] 1000ug Take 1 U nivers B-12 1,000 1-17 tablet by ity of mcg tablet 00:00: mouth [place] 00 daily. [facility] Branch calcitrioL 2020-0 Yes [id number] .5ug Take 1 Univers 0.5 mcg 1-17 capsule by ity of capsule 00:00: mouth [place] 00 daily. Medical Branch vitamin 2020-0 Yes [id number] 1000ug Take 1 U nivers B-12 1,000 1-17 tablet by ity of mcg tablet 00:00: mouth [place] 00 daily. [facility] Branch calcitrioL 2020-0 Yes [id number] .5ug Take 1 [facility] 0.5 mcg 1-17 capsule by ity of capsule 00:00: mouth [place] 00 daily. [facility] Branch vitamin 2020-0 Yes [id number] 1000ug Take 1 U nivers B-12 1,000 1-17 tablet by ity of mcg tablet 00:00: mouth [place] 00 daily. [facility] Branch calcitrioL 2021-0 Yes [id number] .5ug Take 1 [facility] 0.5 mcg 1-17 capsule by ity of capsule 00:00: mouth [place] 00 daily. Medical Branch cyanocobala 0 Yes 1000ug Take 1,000 [facility] min 1-[address] (VITAMIN 00:00: mouth. Hospita B-12) 1000 00 l MCG tablet ondansetron Yes 1{tbl} Q6H Take 1 [facility] (ZOFRAN) 4 1-[address] MG tablet 00:00: mouth [facility]osp[facility] 00 Every 6 l hours while awake as needed (RT). docusate 0 Yes 1{capsu Take 1 Meth luz sodium 1-16 le} capsule by st (COLACE) 00:00: mouth. Hospita 100 MG 00 l capsule docusate 0 Yes 1{capsu Take 1 Meth luz sodium 1-16 le} capsule by st (COLACE) 00:00: mouth. Hospita 100 MG 00 l capsule sodium Yes [id number] 1g Take 1 Univ ers chloride 1 1-16 tablet by ity of gram tablet 00:00: mouth 4 [place] 00 (four) Medical times Branch daily. atenoloL 25 0 Yes [id number] 25mg Take 1 [facility] mg tablet 1-16 tablet by ity o f 00:00: mouth 2 (two) Medical times Branch daily. doxazosin 4 0 Yes [id number] 4mg Take 1 [facility] mg tablet 1-16 tablet by ity o f 00:00: mouth 2 (two) Medical times Branch daily. hydrALAZINE 0 Yes [id number] 50mg Take 1 [facility] 50 mg 1-16 tablet by ity of tablet 00:00: mouth 3 (three) Medical times Branch daily. docusate 0 Yes [id number] 100mg Take 1 U nivers 100 mg 1-16 capsule by ity of capsule 00:00: mouth 2 00 (two) Medical times Branch daily. Polyethylen 0 Yes [id number] 17g Take 1 [facility] e Glycol 1-16 Packet by ity of 3350 17 00:00: mouth [place] gram powder 00 every 24 Medi nicole (twenty-fo Branch ur) hours as needed for Constipati on. sodium 2020-0 Yes [id number] 1g Take 1 Univ ers chloride 1 1-16 tablet by ity of gram tablet 00:00: mouth 4 [place] 00 (four) Medical times Branch daily. atenoloL 25 2020-0 Yes [id number] 25mg Take 1 [facility] mg tablet 1-16 tablet by ity o f 00:00: mouth 2 (two) Medical times Branch daily. doxazosin 4 2020-0 Yes [id number] 4mg Take 1 [facility] mg tablet 1-16 tablet by ity o f 00:00: mouth (two) Medical times Branch daily. hydrALAZINE 2020-0 Yes [id number] 50mg Take 1 [facility] 50 mg 1-16 tablet by ity of tablet 00:00: mouth (three) Medical times Branch daily. docusate 2020-0 Yes [id number] 100mg Take 1 U nivers 100 mg 1-16 capsule by ity of capsule 00:00: mouth (two) Medical times Branch daily. Polyethylen 0 Yes [id number] 17g Take 1 [facility] e Glycol 1-16 Packet by ity of 3350 17 00:00: mouth [place] gram powder 00 every 24 Medi nicole (twenty-fo Branch ur) hours as needed for Constipati on. sodium 0 Yes [id number] 1g Take 1 Univ ers chloride 1 1-16 tablet by ity of gram tablet 00:00: mouth 4 [place] 00 (four) Medical times Branch daily. atenoloL 25 0 Yes [id number] 25mg Take 1 [facility] mg tablet 1-16 tablet by ity o f 00:00: mouth (two) Medical times Branch daily. doxazosin 4 2020-0 Yes [id number] 4mg Take 1 [facility] mg tablet 1-16 tablet by ity o f 00:00: mouth 2 (two) Medical times Branch daily. hydrALAZINE 2020-0 Yes [id number] 50mg Take 1 [facility] 50 mg 1-16 tablet by ity of tablet 00:00: mouth 3 (three) Medical times Branch daily. docusate 2020-0 Yes [id number] 100mg Take 1 U nivers 100 mg 1-16 capsule by ity of capsule 00:00: mouth 2 (two) Medical times Branch daily. Polyethylen 2020-0 Yes [id number] 17g Take 1 [facility] e Glycol 1-16 Packet by ity of 3350 17 00:00: mouth [place] gram powder 00 every 24 Medi nicole (twenty-fo Branch ur) hours as needed for Constipati on. sodium 2020-0 Yes [id number] 1g Take 1 Univ ers chloride 1 1-16 tablet by ity of gram tablet 00:00: mouth 4 [place] 00 (four) Medical times Branch daily. atenoloL 25 2020-0 Yes [id number] 25mg Take 1 [facility] mg tablet 1-16 tablet by ity o f 00:00: mouth 2 (two) Medical times Branch daily. doxazosin 4 2020-0 Yes [id number] 4mg Take 1 [facility] mg tablet 1-16 tablet by ity o f 00:00: mouth 2 (two) Medical times Branch daily. hydrALAZINE 2020-0 Yes [id number] 50mg Take 1 [facility] 50 mg 1-16 tablet by ity of tablet 00:00: mouth 3 (three) Medical times Branch daily. docusate 2020-0 Yes [id number] 100mg Take 1 U nivers 100 mg 1-16 capsule by ity of capsule 00:00: mouth (two) Medical times Branch daily. Polyethylen 2020-0 Yes [id number] 17g Take 1 [facility] e Glycol 1-16 Packet by ity of 3350 17 00:00: mouth [place] gram powder 00 every 24 Medi nicole (twenty-fo Branch ur) hours as needed for Constipati on. sodium 2020-0 Yes [id number] 1g Take 1 [facility] ers chloride 1 1-16 tablet by ity of gram tablet 00:00: mouth 4 [place] 00 (four) Medical times Branch daily. atenoloL 25 2020-0 Yes [id number] 25mg Take 1 [facility] mg tablet 1-16 tablet by ity o f 00:00: mouth 2 (two) Medical times Branch daily. doxazosin 4 2020-0 Yes [id number] 4mg Take 1 [facility] mg tablet 1-16 tablet by ity o f 00:00: mouth 2 (two) Medical times Branch daily. hydrALAZINE 2020-0 Yes [id number] 50mg Take 1 [facility] 50 mg 1-16 tablet by ity of tablet 00:00: mouth 3 (three) Medical times Branch daily. docusate 2021-0 Yes [id number] 100mg Take 1 U nivers 100 mg 1-16 capsule by ity of capsule 00:00: mouth 2 (two) Medical times Branch daily. Polyethylen 2020-0 Yes [id number] 17g Take 1 [facility] e Glycol 1-16 Packet by ity of 3350 17 00:00: mouth [place] gram powder 00 every 24 Medi nicole (twenty-fo Branch ur) hours as needed for Constipati on. sodium 2020-0 Yes [id number] 1g Take 1 [facility] ers chloride 1 1-16 tablet by ity of gram tablet 00:00: mouth 4 [place] 00 (four) Medical times Branch daily. atenoloL 25 2020-0 Yes [id number] 25mg Take 1 [facility] mg tablet 1-16 tablet by ity o f 00:00: mouth 2 (two) Medical times Branch daily. doxazosin 4 2020-0 Yes [id number] 4mg Take 1 [facility] mg tablet 1-16 tablet by ity o f 00:00: mouth 2 (two) Medical times Branch daily. hydrALAZINE 2020-0 Yes [id number] 50mg Take 1 [facility] 50 mg 1-16 tablet by ity of tablet 00:00: mouth 3 (three) Medical times Branch daily. docusate 2020-0 Yes [id number] 100mg Take 1 U nivers 100 mg 1-16 capsule by ity of capsule 00:00: mouth 2 (two) Medical times Branch daily. Polyethylen 2020-0 Yes [id number] 17g Take 1 [facility] e Glycol 1-16 Packet by ity of 3350 17 00:00: mouth [place] gram powder 00 every 24 Medi nicole (twenty-fo Branch ur) hours as needed for Constipati on. sodium 2020-0 Yes [id number] 1g Take 1 [facility] ers chloride 1 1-16 tablet by ity of gram tablet 00:00: mouth 4 [place] 00 (four) Medical times Branch daily. atenoloL 25 2020-0 Yes [id number] 25mg Take 1 [facility] mg tablet 1-16 tablet by ity o f 00:00: mouth 2 [place] 00 (two) Medical times Branch daily. doxazosin 4 2020-0 Yes [id number] 4mg Take 1 [facility] mg tablet 1-16 tablet by ity o f 00:00: mouth (two) Medical times Branch daily. hydrALAZINE 1-0 Yes [id number] 50mg Take 1 [facility] 50 mg 1-16 tablet by ity of tablet 00:00: mouth 3 (three) Medical times Branch daily. docusate 2021-0 Yes [id number] 100mg Take 1 U nivers 100 mg 1-16 capsule by ity of capsule 00:00: mouth (two) Medical times Branch daily. Polyethylen 2020-0 Yes [id number] 17g Take 1 [facility] e Glycol 1-16 Packet by ity of 3350 17 00:00: mouth [place] gram powder 00 every 24 Medi nicole (twenty-fo Branch ur) hours as needed for Constipati on. sodium 2020-0 Yes [id number] 1g Take 1 Univ ers chloride 1 1-16 tablet by ity of gram tablet 00:00: mouth (four) Medical times Branch daily. atenoloL 25 2020-0 Yes [id number] 25mg Take 1 [facility] mg tablet 1-16 tablet by ity o f 00:00: mouth (two) Medical times Branch daily. doxazosin 4 2020-0 Yes [id number] 4mg Take 1 [facility] mg tablet 1-16 tablet by ity o f 00:00: mouth (two) Medical times Branch daily. hydrALAZINE 2020-0 Yes [id number] 50mg Take 1 [facility] 50 mg 1-16 tablet by ity of tablet 00:00: mouth (three) Medical times Branch daily. docusate 2021-0 Yes [id number] 100mg Take 1 U nivers 100 mg 1-16 capsule by ity of capsule 00:00: mouth (two) Medical times Branch daily. Polyethylen 1-0 Yes [id number] 17g Take 1 [facility] e Glycol 1-16 Packet by ity of 3350 17 00:00: mouth [place] gram powder 00 every 24 Medi nicole (twenty-fo Branch ur) hours as needed for Constipati on. sodium 2020-0 Yes [id number] 1g Take 1 [facility] ers chloride 1 1-16 tablet by ity of gram tablet 00:00: mouth 4 [place] 00 (four) Medical times Branch daily. atenoloL 25 2020-0 Yes [id number] 25mg Take 1 [facility] mg tablet 1-16 tablet by ity o f 00:00: mouth (two) Medical times Branch daily. doxazosin 4 2020-0 Yes [id number] 4mg Take 1 [facility] mg tablet 1-16 tablet by ity o f 00:00: mouth (two) Medical times Branch daily. hydrALAZINE 2020-0 Yes [id number] 50mg Take 1 [facility] 50 mg 1-16 tablet by ity of tablet 00:00: mouth (three) Medical times Branch daily. docusate 2020-0 Yes [id number] 100mg Take 1 U nivers 100 mg 1-16 capsule by ity of capsule 00:00: mouth (two) Medical times Branch daily. Polyethylen 2020-0 Yes [id number] 17g Take 1 [facility] e Glycol 1-16 Packet by ity of 3350 17 00:00: mouth [place] gram powder 00 every 24 Medi nicole (twenty-fo Branch ur) hours as needed for Constipati on. sodium 2020-0 Yes [id number] 1g Take 1 [facility] ers chloride 1 1-16 tablet by ity of gram tablet 00:00: mouth 4 [place] 00 (four) Medical times Branch daily. atenoloL 25 2020-0 Yes [id number] 25mg Take 1 [facility] mg tablet 1-16 tablet by ity o f 00:00: mouth (two) Medical times Branch daily. doxazosin 4 2020-0 Yes [id number] 4mg Take 1 [facility] mg tablet 1-16 tablet by ity o f 00:00: mouth (two) Medical times Branch daily. hydrALAZINE 2020-0 Yes [id number] 50mg Take 1 [facility] 50 mg 1-16 tablet by ity of tablet 00:00: mouth (three) Medical times Branch daily. docusate 2020-0 Yes [id number] 100mg Take 1 U nivers 100 mg 1-16 capsule by ity of capsule 00:00: mouth (two) Medical times Branch daily. Polyethylen 2020-0 Yes [id number] 17g Take 1 Univers e Glycol 1-16 Packet by ity of 3350 17 00:00: mouth [place] gram powder 00 every 24 Medi nicole (twenty-fo Branch ur) hours as needed for Constipati on. sodium 2020-0 Yes [id number] 1g Take 1 Univ ers chloride 1 1-16 tablet by ity of gram tablet 00:00: mouth 4 [place] 00 (four) Medical times Branch daily. atenoloL 25 2020-0 Yes [id number] 25mg Take 1 [facility] mg tablet 1-16 tablet by ity o f 00:00: mouth 2 (two) Medical times Branch daily. doxazosin 4 2020-0 Yes [id number] 4mg Take 1 [facility] mg tablet 1-16 tablet by ity o f 00:00: mouth 2 (two) Medical times Branch daily. hydrALAZINE 2020-0 Yes [id number] 50mg Take 1 [facility] 50 mg 1-16 tablet by ity of tablet 00:00: mouth 3 (three) Medical times Branch daily. docusate 2020-0 Yes [id number] 100mg Take 1 U nivers 100 mg 1-16 capsule by ity of capsule 00:00: mouth 2 (two) Medical times Branch daily. Polyethylen 2020-0 Yes [id number] 17g Take 1 [facility] e Glycol 1-16 Packet by ity of 3350 17 00:00: mouth [place] gram powder 00 every 24 Medi nicole (twenty-fo Branch ur) hours as needed for Constipati on. sodium 2020-0 Yes [id number] 1g Take 1 Univ ers chloride 1 1-16 tablet by ity of gram tablet 00:00: mouth 4 [place] 00 (four) Medical times Branch daily. atenoloL 25 2020-0 Yes [id number] 25mg Take 1 [facility] mg tablet 1-16 tablet by ity o f 00:00: mouth 2 (two) Medical times Branch daily. doxazosin 4 2020-0 Yes [id number] 4mg Take 1 [facility] mg tablet 1-16 tablet by ity o f 00:00: mouth 2 (two) Medical times Branch daily. hydrALAZINE 2020-0 Yes [id number] 50mg Take 1 [facility] 50 mg 1-16 tablet by ity of tablet 00:00: mouth 3 (three) Medical times Branch daily. docusate 2020-0 Yes [id number] 100mg Take 1 U nivers 100 mg 1-16 capsule by ity of capsule 00:00: mouth 2 (two) Medical times Branch daily. Polyethylen 2020-0 Yes [id number] 17g Take 1 [facility] e Glycol 1-16 Packet by ity of 3350 17 00:00: mouth [place] gram powder 00 every 24 Medi nicole (twenty-fo Branch ur) hours as needed for Constipati on. sodium 2020-0 Yes [id number] 1g Take 1 Univ ers chloride 1 1-16 tablet by ity of gram tablet 00:00: mouth 4 [place] 00 (four) Medical times Branch daily. atenoloL 25 2020-0 Yes [id number] 25mg Take 1 [facility] mg tablet 1-16 tablet by ity o f 00:00: mouth 2 (two) Medical times Branch daily. doxazosin 4 2020-0 Yes [id number] 4mg Take 1 [facility] mg tablet 1-16 tablet by ity o f 00:00: mouth (two) Medical times Branch daily. hydrALAZINE 2020-0 Yes [id number] 50mg Take 1 [facility] 50 mg 1-16 tablet by ity of tablet 00:00: mouth 3 (three) Medical times Branch daily. docusate 2020-0 Yes [id number] 100mg Take 1 [facility] nivers 100 mg 1-16 capsule by ity of capsule 00:00: mouth (two) Medical times Branch daily. Polyethylen 2020-0 Yes [id number] 17g Take 1 [facility] e Glycol 1-16 Packet by ity of 3350 17 00:00: mouth [place] gram powder 00 every 24 Medi nicole (twenty-fo Branch ur) hours as needed for Constipati on. sodium 2020-0 Yes [id number] 1g Take 1 Univ ers chloride 1 1-16 tablet by ity of gram tablet 00:00: mouth 4 [place] 00 (four) Medical times Branch daily. atenoloL 25 2020-0 Yes [id number] 25mg Take 1 [facility] mg tablet 1-16 tablet by ity o f 00:00: mouth 2 (two) Medical times Branch daily. doxazosin 4 2020-0 Yes [id number] 4mg Take 1 [facility] mg tablet 1-16 tablet by ity o f 00:00: mouth 2 (two) Medical times Branch daily. hydrALAZINE 1-0 Yes [id number] 50mg Take 1 [facility] 50 mg 1-16 tablet by ity of tablet 00:00: mouth 3 (three) Medical times Branch daily. docusate 2021-0 Yes [id number] 100mg Take 1 [facility] nivers 100 mg 1-16 capsule by ity of capsule 00:00: mouth 2 (two) Medical times Branch daily. Polyethylen 2020-0 Yes [id number] 17g Take 1 [facility] e Glycol 1-16 Packet by ity of 3350 17 00:00: mouth [place] gram powder 00 every 24 Medi nicole (twenty-fo Branch ur) hours as needed for Constipati on. sodium 2020-0 Yes [id number] 1g Take 1 Univ ers chloride 1 1-16 tablet by ity of gram tablet 00:00: mouth (four) Medical times Branch daily. atenoloL 25 2020-0 Yes [id number] 25mg Take 1 [facility] mg tablet 1-16 tablet by ity o f 00:00: mouth 2 (two) Medical times Branch daily. doxazosin 4 2020-0 Yes [id number] 4mg Take 1 [facility] mg tablet 1-16 tablet by ity o f 00:00: mouth 2 (two) Medical times Branch daily. hydrALAZINE 2020-0 Yes [id number] 50mg Take 1 [facility] 50 mg 1-16 tablet by ity of tablet 00:00: mouth 3 (three) Medical times Branch daily. docusate 2020-0 Yes [id number] 100mg Take 1 [facility] nivers 100 mg 1-16 capsule by ity of capsule 00:00: mouth 2 (two) Medical times Branch daily. Polyethylen 1-0 Yes [id number] 17g Take 1 [facility] e Glycol 1-16 Packet by ity of 3350 17 00:00: mouth [place] gram powder 00 every 24 Medi nicole (twenty-fo Branch ur) hours as needed for Constipati on. sodium 2020-0 Yes [id number] 1g Take 1 [facility] ers chloride 1 1-16 tablet by ity of gram tablet 00:00: mouth 4 [place] 00 (four) Medical times Branch daily. atenoloL 25 2020-0 Yes [id number] 25mg Take 1 [facility] mg tablet 1-16 tablet by ity o f 00:00: mouth (two) Medical times Branch daily. doxazosin 4 2020-0 Yes [id number] 4mg Take 1 [facility] mg tablet 1-16 tablet by ity o f 00:00: mouth (two) Medical times Branch daily. hydrALAZINE 2020-0 Yes [id number] 50mg Take 1 [facility] 50 mg 1-16 tablet by ity of tablet 00:00: mouth (three) Medical times Branch daily. docusate 2020-0 Yes [id number] 100mg Take 1 U nivers 100 mg 1-16 capsule by ity of capsule 00:00: mouth (two) Medical times Branch daily. Polyethylen 2020-0 Yes [id number] 17g Take 1 [facility] e Glycol 1-16 Packet by ity of 3350 17 00:00: mouth [place] gram powder 00 every 24 Medi nicole (twenty-fo Branch ur) hours as needed for Constipati on. sodium 2020-0 Yes [id number] 1g Take 1 Univ ers chloride 1 1-16 tablet by ity of gram tablet 00:00: mouth 4 [place] 00 (four) Medical times Branch daily. atenoloL 25 2020-0 Yes [id number] 25mg Take 1 [facility] mg tablet 1-16 tablet by ity o f 00:00: mouth (two) Medical times Branch daily. doxazosin 4 2020-0 Yes [id number] 4mg Take 1 [facility] mg tablet 1-16 tablet by ity o f 00:00: mouth (two) Medical times Branch daily. hydrALAZINE 2020-0 Yes [id number] 50mg Take 1 [facility] 50 mg 1-16 tablet by ity of tablet 00:00: mouth (three) Medical times Branch daily. docusate 2020-0 Yes [id number] 100mg Take 1 U nivers 100 mg 1-16 capsule by ity of capsule 00:00: mouth (two) Medical times Branch daily. Polyethylen 2020-0 Yes [id number] 17g Take 1 [facility] e Glycol 1-16 Packet by ity of 3350 17 00:00: mouth [place] gram powder 00 every 24 Medi nicole (twenty-fo Branch ur) hours as needed for Constipati on. sodium 2020-0 Yes [id number] 1g Take 1 Univ ers chloride 1 1-16 tablet by ity of gram tablet 00:00: mouth 4 [place] 00 (four) Medical times Branch daily. atenoloL 25 2020-0 Yes [id number] 25mg Take 1 [facility] mg tablet 1-16 tablet by ity o f 00:00: mouth 2 00 (two) Medical times Branch daily. doxazosin 4 2020-0 Yes [id number] 4mg Take 1 [facility] mg tablet 1-16 tablet by ity o f 00:00: mouth 2 (two) Medical times Branch daily. hydrALAZINE 2020-0 Yes [id number] 50mg Take 1 [facility] 50 mg 1-16 tablet by ity of tablet 00:00: mouth 3 (three) Medical times Branch daily. docusate 2020-0 Yes [id number] 100mg Take 1 U nivers 100 mg 1-16 capsule by ity of capsule 00:00: mouth 2 [place] (two) Medical times Branch daily. Polyethylen 2020-0 Yes [id number] 17g Take 1 [facility] e Glycol 1-16 Packet by ity of 3350 17 00:00: mouth [place] gram powder 00 every 24 Medi nicole (twenty-fo Branch ur) hours as needed for Constipati on. docusate 2020-0 Yes 1{capsu Take 1 [facility] sodium 1-16 le} capsule by st (COLACE) 00:00: mouth. [facility] 100 MG 00 l capsule isosorbide 2020-0 Yes QD Take by [facility] mononitrate 7-[address] (IMDUR) 60 00:00: daily. Hospi ta MG 24 hr 00 l tablet isosorbide 2020-0 Yes QD Take by [facility] mononitrate 7-[address] (IMDUR) 60 00:00: daily. Hospi ta MG 24 hr 00 l tablet isosorbide 2020-0 Yes QD Take by Meth [facility]uz mononitrate 7-[address] (IMDUR) 60 00:00: daily. Hospi ta MG 24 hr 00 l [facility] 2018[facility] [facility]:00: [facility] a 112 mcg 00 l tablet oxybutynin 0 Yes THREE Method i (DITROPAN) 4-[address] 5 MG tablet 00:00: DAY [facility] 00 l [facility] 2018[facility] [facility] 00:00: Hospit a 112 mcg 00 l tablet oxybutynin 0 Yes THREE Method i (DITROPAN) 4-[address] 5 MG tablet 00:00: DAY [facility] 00 [facility] 2018[facility] [facility] 00:00: Hospit a 112 mcg 00 l tablet oxybutynin 2018-0 Yes THREE Method i (DITROPAN) 4-[address] 5 MG tablet 00:00: DAY Hospit a 00 l ipratropium 0 Yes 3mL Q.5D Inhale 3 Me thodi -albuteroL 4-07 mL 2 (two) st (DUO-NEB) 00:00: times a Hospi ta 0.5-2.5 00 day as l mg/3 mL needed. nebulizer ipratropium 0 Yes 3mL Q.5D Inhale 3 Me thodi -albuteroL 4-07 mL 2 (two) st (DUO-NEB) 00:00: times a Hospi ta 0.5-2.5 00 day as l mg/3 mL needed. nebulizer ipratropium Yes 3mL Q.5D Inhale 3 Me thodi -albuteroL 4-07 mL 2 (two) st (DUO-NEB) 00:00: times a Hospi ta 0.5-2.5 00 day as l mg/3 mL needed. nebulizer Immunizations Ordered Filled Date Status Comments Source Immunization Name Immunization Name RADHA COVID-19 2020-11-04 Completed Method[facility] t MRNA VACCINATION 00:00:00 [facility] MODERN COVID-19 2020-11-04 Completed Method[facility] t MRNA VACCINATION 00:00:00 [facility] SARS-COV-2 COVID-19 2020-11-04 Completed Unive rsity of [...] [place] [facility] VACCINE [facility] MODERNA COVID-19 2020-10-07 Completed [facility] t MRNA VACCINATION 00:00:00 Hospital MODERNA COVID-19 2020-10-07 Completed [facility] t MRNA VACCINATION 00:00:00 Hospital SARS-COV-2 COVID-19 2020-10-07 Completed Unive rsity [...] Unive rsity of MODERNA VACCINE 00:00:00 [place] [facility] ical Branch SARS-COV-2 COVID-19 2020-10-07 Completed Unive rsity of MODERNA VACCINE 00:00:00 [place] [facility] SARS-COV-2 COVID-19 2020-10-07 Completed Unive rsity of MODERNA 12+ YRS 00:00:00 [place] [facility] ical VACCINE Branch SARS-COV-2 COVID-19 2020-10-07 Completed Unive rsity of MODERNA 12+ YRS 00:00:00 [place] [facility] ical VACCINE Branch SARS-COV-2 COVID-19 2020-10-07 Completed Unive rsity of MODERNA 12+ YRS 00:00:00 [place] [facility] ical VACCINE Branch SARS-COV-2 COVID-19 2020-10-07 Completed Unive rsity of MODERNA 12+ YRS 00:00:00 [place] [facility] ical VACCINE Branch SARS-COV-2 COVID-19 2020-10-07 Completed Unive rsity of MODERNA 12+ YRS 00:00:00 [place] [facility] ical VACCINE Branch SARS-COV-2 COVID-19 2020-10-07 Completed Unive rsity of MODERNA 12+ YRS 00:00:00 [place] [facility] ical VACCINE Branch SARS-COV-2 COVID-19 2020-10-07 Completed Unive rsity of MODERNA 12+ YRS 00:00:00 [facility] VACCINE Branch Influenza High Dose 2020-04-23 Completed Unive rsity of 00:00:00 [facility] Influenza High Dose 2020-04-23 Completed Unive rsity of Quad 00:00:00 [facility] Influenza Virus 2020-04-23 Completed Universit y of Vaccine 00:00:00 [facility] Influenza High Dose 2020-04-23 Completed Unive rsity of 00:00:00 [facility] Influenza High Dose 2020-04-23 Completed Unive rsity of Quad 00:00:00 [facility] Influenza Virus 2020-04-23 Completed Universit y of Vaccine 00:00:00 [facility] Influenza High Dose 2020-04-23 Completed Unive rsity of 00:00:00 [facility] Influenza High Dose 2020-04-23 Completed Unive rsity of Quad 00:00:00 [facility] Influenza Virus 2020-04-23 Completed Universit y of Vaccine 00:00:00 [facility] Influenza High Dose 2020-04-23 Completed Unive rsity of 00:00:00 [facility] Influenza High Dose 2020-04-23 Completed Unive rsity of Quad 00:00:00 [facility] Influenza Virus 2020-04-23 Completed Universit y of Vaccine 00:00:00 [facility] Influenza High Dose 2020-04-23 Completed Unive rsity of 00:00:00 [facility] Influenza High Dose 2020-04-23 Completed Unive rsity of Quad 00:00:00 [facility] Influenza Virus 2020-04-23 Completed Universit y of Vaccine 00:00:00 [facility] Influenza High Dose 2020-04-23 Completed Unive rsity of 00:00:00 [facility] Influenza High Dose 2020-04-23 Completed Unive rsity of Quad 00:00:00 [facility] Influenza Virus 2020-04-23 Completed Universit y of Vaccine 00:00:00 [facility] Influenza High Dose 2020-04-23 Completed Unive rsity of 00:00:00 [facility] Influenza High Dose 2020-04-23 Completed Unive rsity of Quad 00:00:00 [facility] Influenza Virus 2020-04-23 Completed Universit y of Vaccine 00:00:00 [facility] Influenza High Dose 2020-04-23 Completed Unive rsity of 00:00:00 [facility] Influenza High Dose 2020-04-23 Completed Unive rsity of Quad 00:00:00 [facility] Influenza Virus 2020-04-23 Completed Universit y of Vaccine 00:00:00 [facility] Influenza High Dose 2020-04-23 Completed Unive rsity of 00:00:00 [facility] Influenza High Dose 2020-04-23 Completed Unive rsity of Quad 00:00:00 [facility] Influenza Virus 2020-04-23 Completed Universit y of Vaccine 00:00:00 [facility] Influenza High Dose 2020-04-23 Completed Unive rsity of 00:00:00 [facility] Influenza High Dose 2020-04-23 Completed Unive rsity of Quad 00:00:00 [facility] Influenza Virus 2020-04-23 Completed Universit y of Vaccine 00:00:00 [facility] Influenza High Dose 2020-04-23 Completed Unive rsity of 00:00:00 [facility] Influenza High Dose 2020-04-23 Completed Unive rsity of Quad 00:00:00 [facility] Influenza Virus 2020-04-23 Completed Universit y of Vaccine 00:00:00 [facility] Influenza High Dose 2020-04-23 Completed Unive rsity of 00:00:00 [facility] Influenza High Dose 2020-04-23 Completed Unive rsity of Quad 00:00:00 [facility] Influenza Virus 2020-04-23 Completed Universit y of Vaccine 00:00:00 [facility] Influenza High Dose 2020-04-23 Completed Unive rsity of 00:00:00 [facility] Influenza High Dose 2020-04-23 Completed Unive rsity of Quad 00:00:00 [facility] Influenza Virus 2020-04-23 Completed Universit y of Vaccine 00:00:00 [facility] Influenza High Dose 2020-04-23 Completed Unive rsity of 00:00:00 [facility] Influenza High Dose 2020-04-23 Completed Unive rsity of Quad 00:00:00 [facility] Influenza Virus 2020-04-23 Completed Universit y of Vaccine 00:00:00 [facility] Influenza High Dose 2020-04-23 Completed Unive rsity of 00:00:00 [facility] Influenza High Dose 2020-04-23 Completed Unive rsity of Quad 00:00:00 [facility] Influenza Virus 2020-04-23 Completed Universit y of Vaccine 00:00:00 [facility] Influenza High Dose 2020-04-23 Completed Unive rsity of 00:00:00 [facility] Influenza High Dose 2020-04-23 Completed Unive rsity of Quad 00:00:00 [facility] Influenza Virus 2020-04-23 Completed Universit y of Vaccine 00:00:00 [facility] Influenza High Dose 2020-04-23 Completed Unive rsity of 00:00:00 [facility] Influenza High Dose 2020-04-23 Completed Unive rsity of Quad 00:00:00 [facility] Influenza Virus 2020-04-23 Completed Universit y of Vaccine 00:00:00 [facility] Influenza High Dose 2020-04-23 Completed Unive rsity of 00:00:00 [facility] Influenza High Dose 2020-04-23 Completed Unive rsity of Quad 00:00:00 [facility] Influenza Virus 2020-04-23 Completed Universit y of Vaccine 00:00:00 [facility] Influenza High Dose 2019-05-02 Completed Unive rsity of 00:00:00 [facility] Influenza High Dose 2019-05-02 Completed Unive rsity of 00:00:00 [facility] Influenza High Dose 2019-05-02 Completed Unive rsity of 00:00:00 [facility] Influenza High Dose 2019-05-02 Completed Unive rsity of 00:00:00 [facility] Influenza High Dose 2019-05-02 Completed Unive rsity of 00:00:00 [facility] Influenza High Dose 2019-05-02 Completed Unive rsity of 00:00:00 [facility] Influenza High Dose 2019-05-02 Completed Unive rsity of 00:00:00 [facility] Influenza High Dose 2019-05-02 Completed Unive rsity of 00:00:00 [facility] Influenza High Dose 2019-05-02 Completed Unive rsity of 00:00:00 [facility] Influenza High Dose 2019-05-02 Completed Unive rsity of 00:00:00 [facility] Influenza High Dose 2019-05-02 Completed Unive rsity of 00:00:00 [facility] Influenza High Dose 2019-05-02 Completed Unive rsity of 00:00:00 [facility] Influenza High Dose 2019-05-02 Completed Unive rsity of 00:00:00 [facility] Influenza High Dose 2019-05-02 Completed Unive rsity of 00:00:00 [facility] Influenza High Dose 2019-05-02 Completed Unive rsity of 00:00:00 [facility] Influenza High Dose 2019-05-02 Completed Unive rsity of 00:00:00 [facility] Influenza High Dose 2019-05-02 Completed Unive rsity of 00:00:00 [facility] Influenza High Dose 2019-05-02 Completed Unive rsity of 00:00:00 [facility] Influenza High Dose 2016-04-20 Completed Unive rsity of 00:00:00 [facility] Influenza High Dose 2016-04-20 Completed Unive rsity of 00:00:00 [facility] Influenza High Dose 2016-04-20 Completed Unive rsity of 00:00:00 [facility] Influenza High Dose 2016-04-20 Completed Unive rsity of 00:00:00 [facility] Influenza High Dose 2016-04-20 Completed Unive rsity of 00:00:00 [facility] Influenza High Dose 2016-04-20 Completed Unive rsity of 00:00:00 [facility] Influenza High Dose 2016-04-20 Completed Unive rsity of 00:00:00 [facility] Influenza High Dose 2016-04-20 Completed Unive rsity of 00:00:00 [facility] Influenza High Dose 2016-04-20 Completed Unive rsity of 00:00:00 [facility] Influenza High Dose 2016-04-20 Completed Unive rsity of 00:00:00 [facility] Influenza High Dose 2016-04-20 Completed Unive rsity of 00:00:00 [facility] Influenza High Dose 2016-04-20 Completed Unive rsity of 00:00:00 [facility] Influenza High Dose 2016-04-20 Completed Unive rsity of 00:00:00 [facility] Influenza High Dose 2016-04-20 Completed Unive rsity of 00:00:00 [facility] Influenza High Dose 2016-04-20 Completed Unive rsity of 00:00:00 [facility] Influenza High Dose 2016-04-20 Completed Unive rsity of 00:00:00 [facility] Influenza High Dose 2016-04-20 Completed Unive rsity of 00:00:00 [facility] Influenza High Dose 2016-04-20 Completed Unive rsity of 00:00:00 [facility] COVID-19 Unknown Completed [facility] Unknown Completed [facility] Vital Signs Vital Name Observation Time Observation Value Comments Source Systolic blood 2022-10-19 16:46:00 120 mm[Hg] Univer sity of pressure [facility] Diastolic blood 2022-10-19 16:46:00 62 mm[Hg] Unive rsity of pressure [facility] Heart rate 2022-10-19 16:46:00 86 /min [facility] Body height 2022-10-19 16:46:00 165.1 cm [facility] Body weight 2022-10-19 16:46:00 72.122 kg [facility] BMI 2022-10-19 16:46:00 26.46 kg/m2 [facility] Oxygen saturation in 2022-10-19 16:46:00 96 /min [facility] Arterial blood by [facility] nicole Pulse oximetry Branch Systolic blood 2022-08-03 17:10:00 118 mm[Hg] Univer sity of pressure [place] [facility] Diastolic blood 2022-08-03 17:10:00 68 mm[Hg] Unive rsity of pressure [place] [facility] Heart rate 2022-08-03 17:10:00 60 /min [facility] [place] [facility] Respiratory rate 2022-08-03 17:10:00 17 /min [facility] ers[facility] [place] [facility] Body weight 2022-08-03 17:10:00 75.751 kg per pt [facility] [place] [facility] BMI 2022-08-03 17:10:00 27.79 kg/m2 [facility] [place] [facility] Oxygen saturation in 2022-08-03 17:10:00 94 /min [facility] Arterial blood by [facility] Pulse oximetry Branch Systolic blood 2022-06-01 15:25:00 109 mm[Hg] Univer sity of pressure [place] [facility] Diastolic blood 2022-06-01 15:25:00 70 mm[Hg] Unive rsity of pressure [place] [facility] Heart rate 2022-06-01 15:25:00 76 /min [facility] [place] [facility] Body height 2022-06-01 15:25:00 165.1 cm [facility] [place] [facility] Body weight 2022-06-01 15:25:00 74.844 kg [facility] [place] [facility] BMI 2022-06-01 15:25:00 27.46 kg/m2 [facility] [place] [facility] Oxygen saturation in 2022-06-01 15:25:00 94 /min [facility] Arterial blood by [facility] Pulse oximetry Branch Systolic blood 2022-03-02 14:12:00 146 mm[Hg] Univer sity of pressure [place] [facility] Diastolic blood 2022-03-02 14:12:00 64 mm[Hg] Unive rsity of pressure [place] [facility] Heart rate 2022-03-02 14:12:00 76 /min [facility] [place] [facility] Respiratory rate 2022-03-02 14:08:00 22 /min [facility] [place] [facility] Body height 2022-03-02 14:08:00 165.1 cm [facility] Body weight 2022-03-02 14:08:00 86.637 kg [facility] BMI 2022-03-02 14:08:00 31.78 kg/m2 [facility] Oxygen saturation in 2022-03-02 14:08:00 95 /min [facility] Arterial blood by [facility] Pulse oximetry Branch Procedures Procedure Date / Time Performing Clinician Source Performed DME/SUPPLY JUSTIFICATION 2023-01-09 05:01:00 Doctor Unassigned, No [facility] PATIENT FINANCIAL 2022-10-19 16:42:30 Doctor Unassigned, No [facility] CT THORAX WO CONTRAST 2022-06-27 18:53:00 Sailaja Taylor [facility] ASSIGNMENT OF BENEFITS 2022-06-27 18:14:47 Doctor Unassigned, No [facility] XR CHEST 2 VW 2022-03-02 15:57:42 Sailaja Taylor [facility] Plan of Care Planned Activity Planned Date Details Comments Source Future Scheduled 2023-04-09 65+ PNEUMOCOCCAL [facility] Test 02:06:22 VACCINE (1 - PCV) [code = 65+ PNEUMOCOCCAL VACCINE (1 - PCV)] Future Scheduled 2023-04-09 SHINGLES VACCINES (1 [facility] Test 02:06:22 of 2) [code = SHINGLES VACCINES (1 of 2)] Future Scheduled 2023-04-09 COVID-19 VACCINE (3 - [facility] Test 02:06:22 Moderna series) [code = COVID-19 VACCINE (3 - Moderna series)] Future Scheduled 2023-04-09 INFLUENZA VACCINE (#1) [facility] Hospital Test 02:06:22 [code = INFLUENZA VACCINE (#1)] Future Scheduled 2022-08-31 65+ [facility]CCAL [facility] Test 07:49:58 VACCINE (1 - PCV) [code = 65+ PNEUMOCOCCAL VACCINE (1 - PCV)] Future Scheduled 2022-08-31 SHINGLES VACCINES (1 [facility] Test 07:49:58 of 2) [code = SHINGLES VACCINES (1 of 2)] Future Scheduled 2022-08-31 COVID-19 VACCINE (3 - [facility] Hospital Test 07:49:58 Booster for Moderna series) [code = COVID-19 VACCINE (3 - Booster for Moderna series)] Future Scheduled 2022-08-31 INFLUENZA VACCINE [facility] Hospital Test 07:49:58 [code = INFLUENZA VACCINE] Future Scheduled 2022-06-09 HEPATITIS B VACCINES [facility] Test 08:53:03 (1 of 3 - 3-dose series) [code = HEPATITIS B VACCINES (1 of 3 - 3-dose series)] Future Scheduled 2022-06-09 65+ [facility] Test 08:53:03 VACCINE (1 - PCV) [code = 65+ PNEUMOCOCCAL VACCINE (1 - PCV)] Future Scheduled 2022-06-09 SHINGLES VACCINES (1 [facility] Test 08:53:03 of 2) [code = SHINGLES VACCINES (1 of 2)] Future Scheduled 2022-06-09 COVID-19 VACCINE (3 - [facility] Hospital Test 08:53:03 Booster for Moderna series) [code = COVID-19 VACCINE (3 - Booster for Moderna series)] Future Scheduled 2022-06-09 INFLUENZA VACCINE [facility] Test 08:53:03 [code = INFLUENZA VACCINE] Encounters Start End Encounter Admission Attending Care Care Encounter Source Date/Time Date/Time Type Type Clinicians Facility Department ID 2021-09-08 Outpatient MARIA G CUMMINS [id number] 18:32:32 Andwestley reina 2021-09-08 Outpatient MARIA G CUMMINS [id number] 18:32:31 [facility] 2021-09-08 Outpatient MARIA G CUMMINS [id number] 18:32:31 [facility] 2020-07-16 Inpatient Rasmarybel, OUMOU [facility] [id number] [facility] 10:30:00 Clarence 58 [facility] 2023-01-09 2023-01-09 Orders Doctor MCCABE 1.2.840.114 [id number] Univers 00:00:00 00:00:00 Only Unassigned, NICOLAS 350.1.13.10 [facility] of [place] [facility] 4.2.7.2.686 Steven as [id number] [facility] nicole 009 Branch 2022-10-19 2022-10-19 Outpatient SAILAJA SERRANO [facility] 10 [id number] [facility] 11:30:00 12:07:03 SAILAJA TAYLOR i ty of [facility] 2022-10-19 2022-10-19 [facility] 1.2.840.114 [id number] Univers 11:30:00 12:07:03 Visit Sailaja LAWS 350.1.13.10 [place] [phone] Mo dical NAL [address] [facility] 2022-10-19 2022-10-19 Orders Doctor ESTELLE 1.2.840.114 [id number] Univers 00:00:00 00:00:00 Only Unassigned, NICOLAS 350.1.13.10 [place] [facility] 4.2.7.2.686 Steven as [phone] [facility] [address] [place] 2022-08-03 2022-08-03 Outpatient R SAILAJA TAYLOR [facility] 10 [id number] Univers 10:30:00 11:39:05 SAILAJA TAYLOR i ty of [facility] 2022-08-03 2022-08-03 [facility] 1.2.840.114 [id number] Univers 10:30:00 11:39:05 Visit Sailaja LAWS 350.1.13.10 [place] [phone] Mo dical NAL [address] [place] [address] 2022-06-27 2022-06-27 Outpatient R SAILAJA TAYLOR [facility] 10 [id number] Univers 12:15:44 23:59:00 SAILAJA TAYLOR i ty of [facility] 2022-06-27 2022-06-27 Hospital [facility] 1.2.840.114 [id number] Univers 12:15:44 23:59:00 Encounter Sailaja LAWS 350.1.13.10 [place] [id number] [facility] [address] [place] 2022-06-27 2022-06-27 Orders Doctor ESTELLE 1.2.840.114 [id number] Univers 00:00:00 00:00:00 Only Unassigned, NICOLAS 350.1.13.10 [facility] [facility] [place] [facility] 4.2.7.2.686 Steven as [phone] [address] 2022-06-26 2022-06-26 Outpatient R SAILAJA TAYLOR [facility] 10 [id number] Univers 10:30:00 10:30:00 SAILAJA TAYLOR i ty of [facility] 2022-06-01 2022-06-01 Outpatient R SAILAJA TAYLOR [facility] 10 [id number] Univers 10:00:00 10:47:03 SAILAJA TAYLOR i ty of [facility] 2022-06-01 2022-06-01 [facility] 1.2.840.114 [id number] Univers 10:00:00 10:47:03 Visit Sailaja AGUIRRETON 350.1.13.10 [place] [phone] [address] 2022-05-30 2022-05-30 Outpatient R SAILAJA TAYLOR [facility] 10 [id number] Univers 10:00:00 10:00:00 SAILAJA TAYLOR i ty of [facility] 2022-05-19 2022-05-19 [facility]ill [facility] 1.2.840.114 [id number] Univers 00:00:00 00:00:00 Shiwan [place] 350.1.13.10 [place] [phone] [address] 2022-03-20 2022-03-20 [facility]phone [facility] 1.2.801.419 [id number] Univers 00:00:00 00:00:00 Shiwan [place] 350.1.13.10 i [place] [phone] Mo dic[address] 2022-03-06 2022-03-06 [facility] 1.2.842.845 [id number] Univers 00:00:00 00:00:00 Shiwan [place] 350.1.13.10 [place] [id number] [facility] NAL [address] [place] [address] 2022-03-03 2022-03-03 Telephone Conor [facility] 1.2.540.464 [id number] Univers 00:00:00 00:00:00 Shicrispinn [place] 350.1.13.10 [place] [id number] [address] 2022-03-02 2022-03-02 Outpatient R SAILAJA TAYLOR [facility] 10 [id number] Univers 10:42:53 23:59:00 SAILAJA TAYLOR i ty of [facility] 2022-03-02 2022-03-02 [facility] Conor [facility] 1.2.840.114 [id number] Univers 10:42:53 23:59:00 Encounter Sailaja LAWS 350.1.13.10 [place] [phone] [facility] [address] [place] [address] 2022-03-02 2022-03-02 Office Conor [facility] 1.2.840.114 [id number] Univers 09:00:00 09:30:00 Visit Sailaja LAWS 350.1.13.10 [place] [phone] [facility] NAL [address] [place] [address] 2022-03-02 2022-03-02 Outpatient R SAILAJA TAYLOR [facility] 10 [id number] Univers 09:00:00 09:00:00 SAILAJA TAYLOR i ty of [facility] 2022-03-01 2022-03-01 [facility] 1.2.411.873 [id number] Univers 00:00:00 00:00:00 Dianawan [place] 350.1.13.10 [place] [phone] [facility] NAL [address] [place] [address] 2022-02-15 2022-02-15 Telephone Conor [facility] 1.2.121.801 [id number] Univers 00:00:00 00:00:00 Shiwan [place] 350.1.13.10 [place] [phone] [address] 2021-12-15 2021-12-15 Outpatient R SAILAJA TAYLOR [facility] 10 [id number] Univers 11:30:00 12:32:47 SAILAJA TAYLOR i ty of [facility] 2021-12-15 2021-12-15 Office Conor [facility] 1.2.840.114 [id number] Univers 11:30:00 12:32:47 Visit Irislatosha LAWS 350.1.13.10 [place] [id number] [address] 2021-12-15 2021-12-15 Outpatient R SAILAJA TAYLOR [facility] 10 [id number] Univers 11:30:00 11:30:00 SAILAJA TAYLOR i ty of [facility] 2021-09-27 2021-09-27 Orders Doctor ESTELLE 1.2.840.114 [id number] Univers 00:00:00 00:00:00 Only Unassigned, NICOLAS 350.1.13.10 [place] [facility] 4.2.7.2.686 Steven as [phone] [address] 2021-09-13 2021-09-13 Outpatient R SAILAJA TAYLOR [facility] 10 [id number] Univers 10:30:00 11:12:20 SAILAJA TAYLOR i ty of [facility] 2021-09-13 2021-09-13 [facility] 1.2.840.114 [id number] Univers 10:30:00 11:12:20 Visit Sailaja LAWS 350.1.13.10 i ty [facility] 4.2.7.2.[place] [id number] [address] 2021-06-28 2021-06-28 Telephone Conor [facility] 1.2.156.238 [id number] Univers 00:00:00 00:00:00 Dianacrispinlatosha LAWS 350.1.13.10 [place] [phone] Mo dical NAL [address] [facility] 2021-06-16 2021-06-16 Outpatient R SAILAJA TAYLOR [facility] 10 [id number] Univers 10:30:00 10:51:23 SAILAJA TAYLOR i ty of [facility] 2021-06-16 2021-06-16 Outpatient R SAILAJA TAYLOR [facility] 10 [id number] Univers 10:30:00 10:51:23 SAILAJA TAYLOR i ty of [facility] 2021-06-16 2021-06-16 [facility] 1.2.840.114 [id number] Univers 09:51:46 10:51:23 Visit Sailaja LAWS 350.1.13.10 [place] [id number] Mo dical NAL [address] [place] [address] 2021-06-16 2021-06-16 Orders Doctor ESTELLE 1.2.840.114 [id number] Univers 00:00:00 00:00:00 Only Unassigned, NICOLAS 350.1.13.10 [facility] 4.2.7.2.686 [place] as [phone] [address] 2021-06-13 2021-06-13 Telephone Conor [facility] 1.2.519.563 [id number] Univers 00:00:00 00:00:00 Sailaja LAWS 350.1.13.10 [place] [phone] Mo dical NAL [address] [place] [address] 2021-04-12 2021-04-12 Outpatient [facility] [id number] [place] 00:00:00 00:00:00 743 Method i 2021-03-22 2021-03-22 Outpatient [facility] [id number] [place] 00:00:00 00:00:[address] 2021-02-24 2021-02-24 Outpatient [facility] [id number] [address] [place] 00:00:00 00:00:[address] 2021-02-22 2021-02-22 Outpatient BRITT, GORDON [facility] [id number] 6[address] [place] 00:00:00 00:00:00 152 Method i 2021-02-22 2021-02-22 Outpatient BRITT, GORDON [facility] [id number] 1816 [place] 00:00:00 00:00:00 695 Method i 2021-02-22 2021-02-22 Outpatient BRITT, GORDON [facility] [id number] 0845 [place] 00:00:00 00:00:00 685 Method i 2020-12-21 2020-12-21 Outpatient BRITT, GORDON [facility] [id number] [place] 00:00:00 00:00:00 174 Method i 2020-09-10 2020-09-10 Transition Edenilson Bowman 1.2.840.114 [id number] 00:00:00 00:00:00 of Care Padmini Gifford 350.1.13.10 [place] 4.2.7.2.686 [id number] 2020-08-26 2020-09-09 [facility] Papo Hernandez [facility] 1.2.840.1 14 [id number] 15:48:00 18:10:00 Encounter Foster Gama 350.1.13.10 Start 4.2.7.2.686 [place] [id number] 2020-08-26 2020-09-09 Inpatient X LANETTE [facility] [id number] [facility] 15:48:00 18:10:00 FOSTER biggs [facility] 2020-08-24 2020-08-24 Edenilson Hartley 1.2.840.114 [id number] 00:00:00 00:00:00 of Care Padmini Gifford 350.1.13.10 [place] 4.2.7.2.686 [id number] 2020-08-10 2020-08-21 [facility] Arleen Sheets [facility] 1.2.840.1 14 [id number] 17:07:00 17:50:00 Encounter Mayr Vieira 350.1.13.10 Start 4.2.7.2.686 [place] [id number] 2020-08-10 2020-08-21 Inpatient X DARIEL [facility] [id number] [facility] 17:07:00 17:50:00 MARY biggs [facility] Results Test Description Test Time Test Comments Results Result Comments Source Novel Coronavirus 2018 Inhouse 2020-07-16 05:22:00 Test Item Value Reference Range Interpretation Comme nts Novel Coronavirus 2018 Negative Negative Posit demarco results are indicative of the Inhouse (test code = presenc e [id number] RNA, clinical COVNONPUI) correlation wit h patient [...] for the identification of SARS-CoV-2 RNA usingthe SPEEDELO M2000 System under th e FDA Emergency UseAuthorizatio n. The testing is performed by ceferino lopezrained in the procedures for the SPEEDELO M2000 moleculardiagno stic SARS-CoV-2 assay in vitro. PROTHROMBIN [id number] 15:53:00 Test Item Value Reference Range Interpretation [...] Infarction (to prevent recurrent infar ct). PROTHROMBIN [id number] 15:48:00 Test Item Value Reference Range Interpretation [...] (to prevent recurrent infar ct). BASIC METABOLIC [id number] 15:45:00 Test Item Value Reference Range Interpretation [...] 9.1 mg/dL 8.0-10.5 N CA) CBC W/AUTO [id number] 15:36:00 Test Item Value Reference Range Interpretation [...]
[2023-05-03] MEDS ORDERED: METOCLOPRAMIDE 10 MG/2mL INJ ONE ×2 (21:51→22:07)
[2023-05-03] MEDS ORDERED: ACETAMINOPHEN 500 MG TAB ONE ×2 (21:51→22:07)
[2023-05-03] MEDS ORDERED: NA CHLORIDE 0.9% 2,000 ML ONE (21:52)
[2023-05-03] MEDS ORDERED: Levofloxacin 750mg IV 750 MG/150 ML BAG IV ONE (21:52)
[2023-05-03] MEDS ORDERED: PROMETHAZINE 25 MG TABLET ONE (21:52)
[2023-05-03] MEDS ORDERED: MORPHINE 2 MG/ML SYR ONE (21:52)
[2023-05-03] MEDS ORDERED: METRONIDAZOLE 500mg IVPB 500 MG/100 ML BAG IV ONE (21:53)
[2023-05-03 22:15] LABS: Absolute Lymphocytes (CBC) 0.6 K/uL (0.7-4.9); Hematocrit 29.8 % (36.0-45.0); Lymphocytes % 4.4 % (15.3-44.8); MCV 101.2 fL (80-100); MPV 9.1 fL (7.6-11.3); Platelets 77 thou/uL (152-406); RBC Red Blood Cell Count 2.95 M/uL (3.86-4.86)
[2023-05-03 22:20] LABS: Protime INR 1.1
[2023-05-03 22:31] LABS: Albumin 3.1 g/dL (3.4-5.0); Bilirubin Total 0.4 mg/dL (0.2-1.0); Potassium 4.3 mEq/L (3.5-5.1); Protein, Total 6.4 g/dL (6.4-8.2)
--- NOTE | 2023-05-03 22:54 | RAD REPORT ---
EXAM DESCRIPTION: CT - Chest Abd Pelvis Wo Con - 05/03/2023 10:22 pm CLINICAL HISTORY: abdominal infection COMPARISON: CT abdomen pelvis 01/11/2023. Low-dose CT chest 11/17/2017 TECHNIQUE: Thin axial CT images of the chest, abdomen, and pelvis, performed without IV contrast. Mu ltiplanar reformats were generated and reviewed. All CT scans are performed using dose optimization technique as appropriate and may include automated exposure control or mA/KV adjustment according to patient size. FINDINGS: The lungs are clear.Trace left more than right pleural effusion and underlying subsegmenta l atelectasis. Prominent pulmonary artery caliber suggesting underlying pulmonary hypertension. No in trathoracic adenopathy.Moderate to large hiatal hernia The liver, spleen, pancreas, and adrenal glands are within normal limits. Bilateral atrophic renal ch anges again seen. Gallbladder is not well-visualized and may be decompressed or surgically removed. S mall calcific granulomas in the spleen again seen. No bowel obstruction, free air, or free fluid. Wall thickening along the anal canal, with moderately pronounced mesial rectal fat stranding. Urinary bladder is suboptimally distended limiting evaluation . No pathologic lymphadenopathy in the abdomen or pelvis. Tortuosity of the abdominal aorta are with multifocal ectasia, stable. No worrisome osseous finding. Severe compression deformity at L1 with sequelae of vertebral augmentat ion again seen. 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 IMPRESSION: Bilateral trace pleural effusions, slightly larger on the left. New wall thickening along the anal canal with moderately pronounced mesorectal fat stranding. Finding s may relate to mucosal inflammation although possibility of a small intramural abscess or adjacent f istula cannot be entirely excluded. Please correlate with physical exam. Other stable incidental findings as detailed above.
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
--- NOTE | 2023-05-03 23:27 | EDPHYS ---
Physician Documentation [facility] Name: Maura Harris Age: 82 yrs Sex: Female : 1940 Arrival Date: 05/03/2023 Time: 20:46 Bed 3 Private MD: ED Physician Fernandez Manuel HPI: 05/03 20:59 This 82 yrs old Female presents to ER via Unassigned with complaints of Acute sp4 complaint . 21:13 82-year-old female with history of COPD, GERD, hypertension, end-stage renal disease, sp4 hypothyroidism, hemodialysis, lymphedema, presents with acute fever, vomiting, overall feeling unwell and the rectal pain with rectal bleeding starting at 1 PM today. Patient states she had colonoscopy by Dr. Cueto in this morning. Patient febrile on presentation 102.8 . Historical: - Allergies: 21:01 Baclofen; jb4 21:01 cefepime; jb4 21:01 Compazine; jb4 21:01 Demerol; jb4 21:01 Ibuprofen; jb4 21:01 Iodine; jb4 21:01 Macrobid; jb4 21:01 Ondansetron HCl; jb4 21:01 prochlorperazine Edisylate; jb4 21:01 Vancomycin; jb4 - PMHx: 21:01 COPD; GERD; Hypertension; Hypothyroidism; kidney disease; lymphedema; retained jb4 cholelithiasis; - Immunization history:: Adult Immunizations up to date, Client reports receiving the 2nd dose of the Covid vaccine, Pneumococcal vaccine is up to date, Flu vaccine is up to date. - Family history:: not pertinent. - Social history:: Smoking status: Patient denies any tobacco usage or history of. ROS: 21:13 Constitutional: Positive for fever, chills, vomiting, feeling unwell, rectal sp4 bleeding, abdominal pain 21:13 All other systems are negative, Exam: 21:13 Constitutional: This is a well developed, well nourished patient who is awake, alert, sp4 ill-appearing, febrile, elderly frail female, stable blood pressure Head/Face: Normocephalic, atraumatic. Eyes: Pupils equal round and reactive to light, extra-ocular motions intact. Lids and lashes normal. Conjunctiva and sclera are not injected. Cornea within normal limits. Periorbital areas with no swelling, redness, or edema. ENT: Nares patent. No nasal discharge, no septal abnormalities noted. Tympanic membranes are normal and external auditory canals are clear. Oropharynx with no redness, swelling, or masses, exudates, or evidence of obstruction, uvula midline. Mucous membranes moist. Neck: Trachea midline, no thyromegaly or masses palpated, and no cervical lymphadenopathy. Supple, full range of motion without nuchal rigidity, or vertebral point tenderness. Chest/axilla: Normal chest wall appearance and motion. Nontender with no deformity. No lesions are appreciated. Cardiovascular: Regular rate and rhythm with a normal S1 and S2. No gallops, murmurs, or rubs. Normal PMI, no JVD. No pulse deficits. Respiratory: Lungs have equal breath sounds bilaterally, clear to auscultation and percussion. No rales, rhonchi or wheezes noted. No increased work of breathing, no retractions or nasal flaring. Abdomen/GI: Soft, non-tender, with normal bowel sounds. No distension or tympany. No guarding or rebound. No evidence of tenderness throughout. Back: No spinal tenderness. No costovertebral tenderness. Skin: Warm, dry with normal turgor. Normal color with no rashes, no lesions, and no evidence of cellulitis. MS/ Extremity: Pulses equal, no cyanosis. Neurovascular intact. Full, normal range of motion. Neuro: Awake and alert, GCS 15, oriented to person, place, time, and situation. Cranial nerves II-XII grossly intact. Motor strength 5/5 in all extremities. Sensory grossly intact. Psych: Awake, alert, with orientation to person, place and time. Behavior, mood, and affect are within normal limits 21:13 Abdomen/GI: Rectal exam reveals small amount of bloody mucus, no mass, no high-volume bleeding, 05/04 00:29 ECG was reviewed by the Attending Physician. There is acute EKG 2245. Sinus rhythm sp4 with PVCs, ventricular rate 86, positive for multiple unifocal PVCs left axis deviation Vital Signs: 05/03 20:58 BP 156 / 59; Pulse 94; Resp 19; Temp 101.8; Pulse Ox 100% on R/A; Weight 72.57 kg (R); jb4 Height 5 ft. 4 in. (R); Pain 8/10; 21:00 BP 148 / 54; Pulse 93; Resp 16 S; Pulse Ox 95% on R/A; jw7 22:00 BP 151 / 42; Pulse 87; Resp 16 S; Pulse Ox 97% on R/A; jw7 23:00 BP 129 / 67; Pulse 88; Resp 19 S; Pulse Ox 96% on 2 lpm NC; 7 23:36 Temp 98.6; 7 05/04 00:11 BP 102 / 34; Pulse 82; Resp 20 S; Pulse Ox 99% on 2 lpm NC; jw7 01:02 BP 106 / 45; Pulse 80; Resp 19 S; Pulse Ox 99% on 2 lpm NC; [facility] 05/03 20:58 Body Mass Index 27.46 (72.57 kg, 162.56 cm) [facility] 05/03 20:58 Pain Scale: Adult [facility] MDM: 05/03 21:10 Patient medically screened. [facility] 23:27 Differential Diagnosis altered mental status, sepsis, flu. Data reviewed: vital signs, 4 nurses notes, old medical records, lab test result(s), EKG, radiologic studies, CT scan, plain films. Consideration of Admission/Observation Patient was admitted/placed on observation. Escalation of care including admission/observation considered. Management of patient was discussed with the following: Hospitalist: Discussed with admission team. Catering Driver: Discussed with Dr. Salguero with gastroenterology. Discussed with general surgery Dr. Tamez . 05/03 21:10 Order name: Blood Culture Adult (2) [facility] 05/03 21:10 Order name: CBC with Diff; Complete Time: 22:38 [facility] 05/03 21:10 Order name: CMP; Complete Time: 22:38 [facility] 05/03 21:10 Order name: Lactate w/ 2H reflex if indic.; Complete Time: 22:38 [facility] 05/03 21:10 Order name: Protime (+inr); Complete Time: 22:38 [facility] 05/03 21:10 Order name: Ptt, Activated; Complete Time: 22:38 [facility] 05/03 21:10 Order name: Urinalysis w/ reflexes [facility] 05/03 22:05 Order name: Flu la1 05/03 22:05 Order name: COVID-19 SARS RT PCR vt05/04 00:13 Order name: SARS-COV-2 RT PCR EDSD 05/04 00:13 Order name: Influenza Screen (A [facility] 05/03 21:13 Order name: CT Chest Abdomen Pelvis W/O Contrast; Complete Time: 23:14 [facility] 05/03 21:10 Order name: EKG; Complete Time: 21:11 [facility] 05/03 21:10 Order name: Accucheck; Complete Time: 22:19 [facility] 05/03 21:10 Order name: Cardiac monitoring; Complete Time: 21:43 [facility] 05/03 21:10 Order name: Cath; Complete Time: 00:51 [facility] 05/03 21:10 Order name: EKG - Nurse/Tech; Complete Time: 23:17 [facility] 05/03 21:10 Order name: IV Saline Lock - Large Bore; Complete Time: 22:08 [facility] 05/03 21:10 Order name: Labs collected and sent; Complete Time: 22:08 [facility] 05/03 21:10 Order name: O2 Per Protocol; Complete Time: :43 [facility] 05/03 21:10 Order name: O2 Sat Monitoring; Complete Time: :43 [facility] 05/03 21:10 Order name: Vital Signs; Complete Time: :43 sp4 EC/29 00:29 Rate is 89 beats/min. Rhythm is regular, Sinus Rhythm with Unifocal PVCs. Left axis sp4 deviation noted. ID interval is normal. QRS interval is normal. QT interval is normal. No Q waves. T waves are Normal. Clinical impression: No evidence of ischemia. Interpreted by me. Administered Medications: 05/03 23:11 Drug: morphine IVP or IV 2 mg IVP once over 4 mins Route: IVP; Infused Over: 4 mins; jw Site: left antecubital; 05/04 00:33 Follow up: Response: No adverse reaction [facility] 05/03 23:11 Drug: NS 0.9% IV 1000 ml IV at 75 ml/hr continuous Route: IV; Rate: 75 ml/hr; Site: [facility] left antecubital; 05/04 00:49 Follow up: Response: No adverse reaction; IV Status: Infusion continued upon admission; [facility] IV Intake: 150ml 05/03 23:12 Drug: Acetaminophen PO 1000 mg PO once Route: PO; [facility] 05/04 00:33 Follow up: Response: No adverse reaction jw05/03 23:12 Drug: NS 0.9% IV 1000 ml IV at 1 bolus Per protocol; 1000 mL bolus Route: IV; Rate: 1 jw7 bolus; Site: left antecubital; 05/04 00:50 Follow up: Response: No adverse reaction; IV Status: Completed infusion; IV Intake: jw7 1000ml 05/03 23:12 Drug: metroNIDAZOLE IVPB 500 mg 100 ml IVPB at 200 ml/hr once over 30 mins Volume: 100 jw7 ml; Route: IVPB; Rate: 200 ml/hr; Infused Over: 30 mins; Site: left antecubital; 23:37 Follow up: Response: No adverse reaction; IV Status: Completed infusion; IV Intake: jw7 100ml 23:12 Drug: metoCLOPramide IVP 10 mg IVP once; over 1 to 2 minutes Route: IVP; Site: left [facility] antecubital; 05/04 00:34 Follow up: Response: No adverse reaction 05/03 23:12 Drug: Promethazine PO 25 mg PO once Route: PO; 05/04 00:33 Follow up: Response: No adverse reaction 05/03 23:17 Drug: LevaQUIN IVPB 750 mg IVPB once Route: IVPB; Site: left antecubital; 05/04 00:50 Follow up: Response: No adverse reaction; IV Status: Completed infusion; IV Intake: jw7 150ml 00:40 Drug: NS 0.9% IV 250 ml IV at bolus once Route: IV; Rate: bolus; Site: left upper arm; jb4 00:50 Follow up: Response: No adverse reaction; IV Status: Completed infusion; IV Intake: jw7 250ml Disposition Summary: 05/03/23 23:27 Hospitalization Ordered Notes: Hospitalization Status: Inpatient Admission sp4 [facility] sp4 Condition: Serious sp4 Problem: new sp4 Symptoms: have improved sp4 Bed/Room Type: Standard sp4 Provider: Henry Treviño(05/03/23 23:29) thomas Room Assignment: [facility](05/04/23 00:11) cg Diagnosis - Severe sepsis without septic shock sp4 - Perirectal inflammation, acute proctitis, fever, end-stage renal disease on sp4 dialysis, acute febrile illness Forms: - Medication Reconciliation Form sp4 - SBAR form sp4 - Leadership Thank You Letter sp4 Signatures: Dispatcher [employer] Ole Underwood, CARDIOLOGY TECHNICIAN-C CARDIOLOGY TECHNICIAN-Maryse1 Claire Shaver, RN RN cg Roberto Lopez RN RN jb4 Gina Durham RN RN jw7 Fernandez Manuel MD MD sp4 Corrections: (The following items were deleted from the chart) 05/03 23: 23:27 Daniel Chow sp4 la1 05/04 00:11 05/03 23:27 sp4
--- NOTE | 2023-05-04 00:35 | P.HP ---
Certification for Inpatient Patient admitted to: Inpatient With expected LOS: >2 Midnights Patient will require the following post-hospital care: None Practitioner: I am a practitioner with admitting privileges, knowledge of patient current condition, hospital course, and medical plan of care. Services: Services provided to patient in accordance with Admission requirements found in Title 42 Section 412.3 of the Code of Federal Regulations <Ole Panda - Last Filed: 05/04/23 00:32> Patient History Date of Service: 05/04/23 Reason for admission: Proctitis, sepsis History of Present Illness: 82-year-old female with history of ESRD on HD MWF, COPD, chronic diastolic congestive heart failure, hypertension, hypothyroidism, GERD presents emergency department with chief complaint of abdominal pain, vomiting, rectal pain. She reports that she had an outpatient colonoscopy performed on the morning of 05/03/2023 and subsequently developed abdominal pain, rectal pain and vomiting. She was evaluated here in the emergency department found to be febrile on presentation to the emergency department her labs are significant for leukocytosis white blood cell count 14 hemoglobin 10 hematocrit 29.8 platelet count 77 sodium 140 creatinine 4.8 GFR 8 BUN [address] chest abdomen pelvis without contrast demonstrated new wall thickening along the anal canal with moderately pronounced mesorectal fat stranding. Findings may relate to mucosal inflammation although possibility of a small intramural abscess or adj acent fistula cannot be entirely excluded. ED physician spoke with general surgery and GI on-call who recommends admission to the hospital service for further evaluation. - Past Medical/Surgical History Diabetic: No -: COPD -: HTN -: GERD -: Hypothyroidism -: CHF, diastolic dysfunction -: Chronic kidney disease -: Right atrophic kidney -: Lymphedema -: cholecystectomy -: appendectomy -: hysterectomy -: tonsillectomy -: L hip sx -: x2 abdominal hernia repairs -: right arm sx -: right ankle sx Psychosocial/ Personal History: The patient is . She is currently at a skilled facility - Family History Father Notes: brain aneurysm Mother Notes: aortic aneurysm Sister -: Heart disease, Lung disease Notes: COPD, Heart problems, gallstones Brother -: Lung disease Notes: asthma - Social History Smoking Status: Never smoker Alcohol use: No CD- Drugs: No Caffeine use: Yes Place of Residence: Home <Ole Panda - Last Filed: 05/04/23 00:32> Date of Service: 05/04/23 <HudsonHenry - Last Filed: 05/04/23 17:09> Allergies baclofen Allergy (Intermediate, Verified 05/02/23 15:13) Shortness of breath prochlorperazine [From Compazine] Allergy (Intermediate, Verified 05/02/23 15:13) "out of it" Home Medications: RX: Docusate Sodium [Stool Softener] 50 mg PO DAILY 06/11/22 RX: Hydralazine HCl 50 mg PO TID 06/11/22 RX: Hydroxychloroquine [Plaquenil*] 200 mg PO DAILY 06/11/22 RX: Losartan Potassium 50 mg PO BID 06/11/22 RX: Pantoprazole [Protonix Tab*] 40 mg PO BID 06/11/22 RX: Tramadol HCl [Ultram] 50 mg PO BID PRN 06/11/22 Fluticasone/Umeclidin/Vilanter [Trelegy Ellipta 100-62.5-25] 1 inh .ROUTE DAILY PRN 05/02/23 Folic Acid/Vit B Complex and C [Cheyenne-Lance Tablet] 0.8 mg PO DAILY 05/02/23 Levothyroxine [Synthroid] 112 mcg PO DAILY 05/02/23 Pregabalin [Lyrica] 25 mg PO BEDTIME 05/02/23 RX: Buspirone HCl 1 tab PO TID 05/02/23 RX: Ferric Citrate [Auryxia] 210 mg PO TID 05/02/23 Cyanocobalamin (Vitamin B-12) [Vitamin B12] 1,000 mcg PO DAILY 05/04/23 Docusate Sodium [Stool Softener] 250 mg PO BEDTIME 05/04/23 RX: Albuterol Sulfate [Proair Respiclick] 2 puff IH Q4HP PRN 05/04/23 RX: Atenolol [Tenormin] 25 mg PO DAILY 05/04/23 RX: Doxazosin [Cardura*] 4 mg PO BID 05/04/23 RX: Gabapentin [Neurontin*] 100 mg PO DAILY 05/04/23 RX: Isosorbide Mononitrate [Isosorbide Mononitrate ER] 60 mg PO DAILY 05/04/23 RX: Melatonin 5 mg PO BEDTIME PRN 05/04/23 RX: Oxybutynin Chloride [Oxybutynin Chloride ER] 5 mg PO TID 05/04/23 glucosamine HCL [Glucosamine HCl] 1,500 mg PO BID 05/04/23 Review of Systems 10-point ROS is otherwise unremarkable Gastrointestinal: Abdominal Pain, Other (Rectal pain) <Ole Panda - Last Filed: 05/04/23 00:32> Physical Examination - Physical Exam General: Alert, In no apparent distress, Oriented x3 HEENT: Atraumatic, PERRLA, Mucous membr. moist/pink, EOMI, Sclerae nonicteric Neck: Supple, 2+ carotid pulse no bruit, No LAD, Without JVD or thyroid abnormality Respiratory: Clear to auscultation bilaterally, Normal air movement Cardiovascular: Regular rate/rhythm, Normal S1 S2 Gastrointestinal: Normal bowel sounds, No tenderness Musculoskeletal: No tenderness Integumentary: No rashes Neurological: Normal speech, Normal strength at 5/5 x4 extr, Normal tone, Normal affect - Studies Laboratory Data (last 24 hrs) 05/03/23 05/03/23 05/03/23 22:03 22:03 22:03 WBC 14.00 H Hgb 10.0 L Hct 29.8 L Plt Count 77 L PT 12.1 INR 1.10 APTT 32.8 Sodium 140 Potassium 4.3 BUN 35 H Creatinine 4.80 H Glucose 101 Total Bilirubin 0.4 AST 18 ALT 17 Alkaline Phosphatase 63 <Ole Panda - Last Filed: 05/04/23 00:32> - Studies Laboratory Data (last 24 hrs) 05/03/23 05/03/23 05/03/23 22:03 22:03 22:03 WBC 14.00 H Hgb 10.0 L Hct 29.8 L Plt Count 77 L PT 12.1 INR 1.10 APTT 32.8 Sodium 140 Potassium 4.3 BUN 35 H Creatinine 4.80 H Glucose 101 Total Bilirubin 0.4 AST 18 ALT 17 Alkaline Phosphatase 63 <Henry Treviño - Last Filed: 05/04/23 17:09> Assessment and Plan - Plan Assessment: Sepsis secondary to proctitis versus intramural abscess/fistula S/P colonoscopy 05/03/2023 ESRD on HD MWF Chronic diastolic congestive heart failure COPD Hypertension Hypothyroidism GERD Plan: Sepsis secondary to proctitis versus intramural abscess/fistula S/P colonoscopy 05/03/2023 SIRS criteria present including leukocytosis, tachycardia, fever, initial lactate less than 2 no hypotension currently. Continue antibiotics with Levaquin, Flagyl. GI and general surgery consult in place. Also to be seen by nephrology. NPO. ESRD on HD MWF Nephrology consult, compliant with dialysis thus far. Chronic diastolic congestive heart failure Appears compensated. COPD As needed breathing treatments. Hypertension Hold oral antihypertensives in the setting of sepsis. Continue when appropriate. Hypothyroidism GERD Continue home medications. DVT PPX: SCD Code status: Full Discharge Plan: Home Plan to discharge in: Greater than 2 days - Advance Directives Does patient have a Living Will: No Does patient have a Durable POA for Healthcare: No - Code Status/Comfort Care Code Status Assessed: Yes (Full code) Critical Care: No Time Spent Managing Pts Care (In Minutes): 70 <Ole Panda - Last Filed: 05/04/23 00:32> Physician Review: Patient Assessed, Agree with Above Assessment and Plan <Henry Treviño - Last Filed: 05/04/23 17:09>
[2023-05-04] MEDS ORDERED: ONDANSETRON 4 MG/2 ML VIAL IV PRN (00:58)
[2023-05-04] MEDS ORDERED: Levofloxacin500mg IV 500 MG/100 ML BAG IV SCH (01:00)
[2023-05-04 01:04] LABS: Urine Bacteria 20-50 /HPF (<20); Urine Crystals Unidentified Few /HPF (None Seen); Urine RBC 21-50 /HPF (None Seen); Urine WBC Clump Few /HPF (None Seen)
[2023-05-04 01:07] LABS: Urine Color Orange (Yellow)
[2023-05-04 01:08] LABS: Specific Gravity 1.013 (1.005-1.030); Urine Bilirubin NEGATIVE (Negative); Urine Blood 2+ (Negative); Urine Clarity Extremely Turbid (Clear); Urine Glucose NEGATIVE (Negative); Urine Protein 2+ (Negative); Urine Urobilinogen Normal (Normal); Urine pH 6.5 (5.0-7.0)
[2023-05-04 01:57] VITALS: BMI 27.0
[2023-05-04] MEDS: METRONIDAZOLE 500mg IVPB 500 MG/100 ML BAG IV SCH ×3 (06:16→21:18)
[2023-05-04 07:08] LABS: Potassium 4.8 mEq/L (3.5-5.1)
[2023-05-04 07:15] LABS: Absolute Lymphocytes (CBC) 1.2 K/uL (0.7-4.9); Hematocrit 25.1 % (36.0-45.0); Lymphocytes % 7.2 % (15.3-44.8); MCV 101.8 fL (80-100); MPV 9.4 fL (7.6-11.3); Platelets 71 thou/uL (152-406); RBC Red Blood Cell Count 2.46 M/uL (3.86-4.86)
[2023-05-04 08:22] LABS: Blood Morphology Comment NOTED (NOT SEEN); Platelet Estimate DECR; Stomatocytes 1+
[2023-05-04] MEDS: MORPHINE 2 MG/ML SYR IV PRN ×3 (09:01→23:14)
[2023-05-04] MEDS ORDERED: ALBUMIN HUMAN 25% 100 ML IV ONE (09:11)
--- NOTE | 2023-05-04 11:41 | P.CNS ---
Date of Consult: 05/04/23 Reason for Consult: ESRD, continuation of dialysis Chief Complaint: Proctitis, sepsis History of Present Illness: Pt is a 82-year-old female with history of ESRD on HD MWF at [facility] in , a hx of HTN, some diastolic dysfunction, chronic intermittent dyspea, hypothyroidism, GERD who presents with abdominal pain, vomiting, rectal pain and diarrhea after a outpatient colonoscopy performed on the morning of 05/03/2023. Pt has chronic intermittent GI symptoms. She reports fevers on presentation to the emergency department and her labs were significant for leukocytosis. CT chest abdomen pelvis without contrast demonstrated new wall thickening along the anal canal with moderately pronounced mesorectal fat stranding. Allergies baclofen Allergy (Intermediate, Verified 05/02/23 15:13) Shortness of breath prochlorperazine [From Compazine] Allergy (Intermediate, Verified 05/02/23 15:13) "out of it" Home Medications: Docusate Sodium [Stool Softener] 50 mg PO DAILY 06/11/22 Hydralazine HCl 50 mg PO TID 06/11/22 Hydroxychloroquine [Plaquenil*] 200 mg PO DAILY 06/11/22 Losartan Potassium 50 mg PO BID 06/11/22 Pantoprazole [Protonix Tab*] 40 mg PO BID 06/11/22 Tramadol HCl [Ultram] 50 mg PO BID PRN 06/11/22 Buspirone HCl 1 tab PO TID 05/02/23 Ferric Citrate [Auryxia] 210 mg PO TID 05/02/23 Fluticasone/Umeclidin/Vilanter [Trelegy Ellipta 100-62.5-25] 1 inh .ROUTE DAILY PRN 05/02/23 Folic Acid/Vit B Complex and C [Cheyenne-Lance Tablet] 0.8 mg PO DAILY 05/02/23 Levothyroxine [Synthroid] 112 mcg PO DAILY 05/02/23 Pregabalin [Lyrica] 25 mg PO BEDTIME 05/02/23 Albuterol Sulfate [Proair Respiclick] 2 puff IH Q4HP PRN 05/04/23 Atenolol [Tenormin] 25 mg PO DAILY 05/04/23 Cyanocobalamin (Vitamin B-12) [Vitamin B12] 1,000 mcg PO DAILY 05/04/23 Docusate Sodium [Stool Softener] 250 mg PO BEDTIME 05/04/23 Doxazosin [Cardura*] 4 mg PO BID 05/04/23 Gabapentin [Neurontin*] 100 mg PO DAILY 05/04/23 Isosorbide Mononitrate [Isosorbide Mononitrate ER] 60 mg PO DAILY 05/04/23 Melatonin 5 mg PO BEDTIME PRN 05/04/23 Oxybutynin Chloride [Oxybutynin Chloride ER] 5 mg PO TID 05/04/23 glucosamine HCL [Glucosamine HCl] 1,500 mg PO BID 05/04/23 - Past Medical/Surgical History Diabetic: No -: COPD -: HTN -: GERD -: Hypothyroidism -: CHF, diastolic dysfunction -: Chronic kidney disease -: Right atrophic kidney -: Lymphedema -: cholecystectomy -: appendectomy -: hysterectomy -: tonsillectomy -: L hip sx -: x2 abdominal hernia repairs -: right arm sx -: right ankle sx Psychosocial/ Personal History: The patient is . She is currently at a skilled facility - Family History Father Notes: brain aneurysm Mother Notes: aortic aneurysm Sister Medical History: Heart disease, Lung disease Notes: COPD, Heart problems, gallstones Brother History Unknown: Yes Medical History: Lung disease Notes: asthma, - Social History Smoking Status: Never smoker Alcohol use: No CD- Drugs: No Caffeine use: Yes Place of Residence: Home Review of Systems General: Fever, Malaise Eyes: Unremarkable ENT: Unremarkable Respiratory: Shortness of Breath, As per HPI Cardiovascular: Unremarkable Gastrointestinal: Nausea, Abdominal Pain, Diarrhea, As per HPI Genitourinary: Other (Pt reports cloudy urine) Musculoskeletal: Other (Chronic arthralgias at various sites) Integumentary: Unremarkable Neurological: Weakness Lymphatics: Unremarkable Physical Examination Temp Pulse Resp BP Pulse Ox 96.9 F 18 102/38 L 100 05/04/23 04:00 05/04/23 04:00 05/04/23 04:00 05/04/23 04:00 General: In no apparent distress, Other (Elderly) HEENT: Atraumatic, Normocephalic, Other (On O2 via NC) Neck: Supple Respiratory: Normal air movement, Other (No rhonchi) Cardiovascular: No edema, Regular rate/rhythm, Normal S1 S2 Gastrointestinal: Other (Soft, ND, mild generalized TTP, no guarding, BS hypoactive) Musculoskeletal: No clubbing, No swelling, No contractures Integumentary: No tenderness/swelling Neurological: Normal speech, Normal tone, Normal affect Laboratory Data (last 24 hrs) 05/03/23 05/03/23 05/03/23 22:03 22:03 22:03 WBC 14.00 H Hgb 10.0 L Hct 29.8 L Plt Count 77 L PT 12.1 INR 1.10 APTT 32.8 Sodium 140 Potassium 4.3 BUN 35 H Creatinine 4.80 H Glucose 101 Total Bilirubin 0.4 AST 18 ALT 17 Alkaline Phosphatase 63 Conclusions/Impression: A/P) 1. ESRD with atrophic kidneys on imaging -cont iHD, pt on MWF schedule as OP but metab profile/chem panel stable and given dialysis staffing issues today, may need to end up postponing HD until tmrw 2. Abdominal pain, rectal pain, diarrhea unspecified -CT findings noted, colonoscopy report not avail at this time, f/u GI reccs 3. Fever unspecified, leukocytosis, abnormal findings in urine, pyuria. F/u UCx. Cont Abx, pt on Levaquin. 4. Dose all meds for reduced CrCl 5. Chronic HTN with relative hypotension in the setting of GI losses, possibly infection, other. Limit UF on HD, will give Albumin on HD if needed Sanjay Ferreira MD, MESHA
[2023-05-04] MEDS ORDERED: NA CHLORIDE 0.9% 500 ML IV SCH (12:00)
--- NOTE | 2023-05-04 14:11 | EKG ---
Test Date: 2023-05-03 Test Time: 22:45:40 Braider Tender: ANDREW MEASUREMENT RESULTS: Intervals: Rate: 86 OR: 202 QRSD: 102 QT: 378 QTc: 452 [place]: P: 87 OR: 202 QRS: -38 T: 68 INTERPRETIVE STATEMENTS: Sinus rhythm with occasional premature ventricular complexes Left axis deviation Abnormal ECG Compared to ECG 06/11/2022 13:32:35 Ventricular premature complex(es) now present First degree AV block no longer present Left bundle-branch block no longer present Electronically Signed On 05-04-23 14:10:00 CDT by Clarence Navarrete
[2023-05-04] MEDS: ACETAMINOPHEN 500 MG TAB PO PRN ×2 (14:14→21:25)
[2023-05-04 14:17] LABS: Hepatitis B surface AG Interp. Nonreactive (Nonreactive)
[2023-05-05] MEDS: MORPHINE 2 MG/ML SYR IV PRN ×4 (04:02→19:33)
[2023-05-05] MEDS: METRONIDAZOLE 500mg IVPB 500 MG/100 ML BAG IV SCH ×3 (05:56→21:35)
[2023-05-05] MEDS: ACETAMINOPHEN 500 MG TAB PO PRN (06:06)
[2023-05-05 06:52] LABS: Potassium 5.2 mEq/L (3.5-5.1)
[2023-05-05] MEDS ORDERED: ALBUMIN HUMAN 25% 100 ML IV ONE (08:51)
--- NOTE | 2023-05-05 12:37 | P.PN ---
(S) Pt still cites malaise, reports chills on HD but no temps recorded and dialysate was being cooled on treatment. UCx has come back revealing GNR growth, pt had reported milky appearance of urine prior to admission (O) Vitals reviewed in the EMR General: Chronically ill, Other (Elderly) HEENT: Atraumatic, Normocephalic, Other (On O2 via NC) Neck: Supple Respiratory: Normal air movement, Other (No rhonchi) Cardiovascular: No edema, Regular rate/rhythm, Normal S1 S2 Gastrointestinal: Other (Soft, ND, mild generalized TTP, no guarding, BS hypoactive) Musculoskeletal: No clubbing, No swelling, No contractures Integumentary: No tenderness/swelling Neurological: Normal speech, Normal tone, Normal affect Conclusions/Impression: A/P) 1. ESRD with atrophic kidneys on imaging -cont iHD, pt on MWF schedule as OP but metab profile/chem panel stable and due to staff issues, pt's treatment got postponed until this am. K at ULN, dialyzing wih low K bath 2. Abdominal pain, rectal pain, diarrhea unspecified -CT findings noted, colonoscopy report not avail at this time, f/u GI reccs (still pending). Symtomatically pt pt reports improvement 3. Fever unspecified, leukocytosis, abnormal findings in urine, pyuria. UTI site unspecified POA, GNR bacteriuria, F/u culture identification. Cont Abx, pt on Levaquin, will defer to IM to cont or switch to Cephalosporin 4. Dose all meds for reduced CrCl 5. Chronic HTN with relative hypotension in the setting of GI losses, possibly infection, other. Limiting UF on HD, will give Albumin on HD if needed Sanjay Ferreira MD, MESHA
[2023-05-05 13:32] LABS: Hematocrit 27.5 % (36.0-45.0); Platelets 70 thou/uL (152-406); RBC Red Blood Cell Count 2.72 M/uL (3.86-4.86)
[2023-05-05 13:38] LABS: Absolute Lymphocytes (CBC) 0.6 K/uL (0.7-4.9); Lymphocytes % 5.8 % (15.3-44.8); MCV 101.1 fL (80-100); MPV 9.1 fL (7.6-11.3)
--- NOTE | 2023-05-05 13:48 | P.PN ---
Subjective Date of Service: 05/05/23 Chief Complaint: Proctitis, sepsis Subjective: Improving (Pt is doing better. No further vaginal or GI bleeding. Slight suprapubic discomfort) Review of Systems General: Weakness Gastrointestinal: Abdominal Pain Physical Examination - Vital Signs Temperature: 98.1 F Blood Pressure: 135/39 Pulse: 68 Respirations: 16 Pulse Ox (%): 98 - Physical Exam General: Alert, Oriented x3 Respiratory: Clear to auscultation bilaterally Cardiovascular: No edema, Regular rate/rhythm Gastrointestinal: Normal bowel sounds, Tenderness (mild suprapubic temdernss) Assessment And Plan - Current Problems (Diagnosis) (1) Rectal bleeding Current Visit: Yes Status: Acute Plan: PT is SP colonoscopy. ELBERT Salguero Argon ablation of rectal agiodysplasia done. CT reviewed. Poss of infection. Bleeding has not stopped. Hx of vaginal bleeding prior to colonoscopy. Advance diet/ CW Ab. HGB 9.4 . On HD/ Poss discharge on Sunday/ stable Physician Review: Patient Assessed, Agree with Above Assessment and Plan
[2023-05-05 19:47] LABS: Blood Morphology Comment NOT SEEN (NOT SEEN); Platelet Estimate DECR; White Blood Cell Scan OK (OK)
[2023-05-05] MEDS ORDERED: Levofloxacin500mg IV 500 MG/100 ML BAG IV SCH (20:00)
[2023-05-05] MEDS: MELATONIN 5 MG TABLET PO PRN (22:33)
[2023-05-05] MEDS ORDERED: ALBUTEROL INHALER 60 PUFF/8 GM IH PRN (22:46)
[2023-05-05] MEDS ORDERED: MELATONIN 5 MG TABLET PO PRN (22:46)
[2023-05-06] MEDS: MORPHINE 2 MG/ML SYR IV PRN ×3 (00:10→09:46)
[2023-05-06] MEDS: METRONIDAZOLE 500mg IVPB 500 MG/100 ML BAG IV SCH ×3 (06:31→21:19)
[2023-05-06] MEDS: PANTOPRAZOLE 40MG TABLET PO SCH ×2 (06:31→15:34)
[2023-05-06] MEDS: LEVOTHYROXINE SOD 0.112 MG TAB PO SCH (06:31)
[2023-05-06] MEDS: DOXAZOSIN 2 MG TAB ONE ×2 (08:10→08:15)
[2023-05-06] MEDS: atenoloL 25 MG TAB PO SCH (08:13)
[2023-05-06] MEDS: TRAMADOL HCL 50 MG TAB PO PRN ×2 (08:13→17:35)
[2023-05-06] MEDS: GABAPENTIN 100 MG CAP PO SCH (08:13)
[2023-05-06] MEDS: BUSPIRONE HCL 5 MG TABLET PO SCH ×3 (08:13→21:18)
[2023-05-06] MEDS ORDERED: DOXAZOSIN 4 MG TAB PO SCH (09:00)
[2023-05-06] MEDS ORDERED: HYDRALAZINE HCL 25 MG TABLET PO SCH (09:00)
[2023-05-06] MEDS ORDERED: HOME MED 1 EA UNK (Docusate Sodium [Stool Softener] 50 MG Capsule) PO SCH (09:00)
[2023-05-06] MEDS ORDERED: ISOSORBIDE MONO SR 60 MG TAB PO SCH (09:00)
[2023-05-06] MEDS ORDERED: LOSARTAN POTASSIUM 50 MG TABLET PO SCH (09:00)
[2023-05-06] MEDS ORDERED: CEFTRIAXONE 1,000 MG in NA CHLORIDE 0.9% 50 ML IVPB SCH ×2 (09:00→11:00)
[2023-05-06] MEDS: HYDROXYCHLOROQUINE 200MG TAB PO SCH (09:46)
[2023-05-06] MEDS ORDERED: Fluticasone/Umeclidin/Vilanter (Trelegy Ellipta) 100-62.5-25 Blst.W.Dev IH PRN (10:47)
--- NOTE | 2023-05-06 10:49 | P.PN ---
Subjective Date of Service: 05/06/23 Chief Complaint: Proctitis, sepsis Subjective: Improving (Patient is improving still has some lower abdominal tenderness) Review of Systems General: Weakness Gastrointestinal: Abdominal Pain Physical Examination - Vital Signs Temperature: 99.5 F Blood Pressure: 141/74 Pulse: 66 Respirations: 16 Pulse Ox (%): 95 - Physical Exam General: Alert, Oriented x3, Mild distress Respiratory: Clear to auscultation bilaterally Cardiovascular: No edema, Regular rate/rhythm Gastrointestinal: Tenderness (Lower abdominal tenderness) - Studies Microbiology Data (last 24 hrs): 05/04/23 00:02 Catheterized Urine [place] Count - Final >100,000 CFU/ML. 05/04/23 00:02 Catheterized Urine - Final Escherichia Coli Staph Aureus Gram Neg Aurelio Assessment And Plan - Current Problems (Diagnosis) (1) Rectal bleeding Current Visit: Yes Status: Acute Plan: Patient has proctitis seen by Dr. Jones after continue with IV antibiotics for now still has lower abdominal tenderness white count is declined significantly and also changed to Rocephin for now typical organisms isolated in the urine not sure is any significant complaints of abdominal pain have also added some hydrocodone Physician Review: Patient Assessed, Agree with Above Assessment and Plan
--- NOTE | 2023-05-06 13:39 | CON ---
Date of Consultation: 05/04/2023 Brief History Of Present Illness: The patient is an 82-year-old female with history of end-stage eli al disease, on dialysis, COPD, chronic diastolic congestive heart failure, hypertension, hypothyroidi sm, GERD, who presents with a chief complaint of abdominal pain, vomiting, rectal pain after having a n outpatient colonoscopy performed the day before of the procedure. During that procedure, she ended up having an APC, argon plasma coagulation to portions of her colon and rectum, which was completed as an outpatient. She ultimately developed pain and as such came to the emergency room with the abov e-stated issue. Past Medical History: End-stage renal disease, COPD, diastolic congestive heart failure, hypertensio n, hypothyroidism, GERD, CKD, atrophic right kidney, and lymphedema. Past Surgical History: Includes cholecystectomy, appendectomy, hysterectomy, tonsillectomy, left hip surgery, multiple abdominal hernia surgeries, right arm surgery, right ankle surgery. Social History: She is . Currently lives in a skilled facility. She denies smoking, alcohol , or recreational drug use. Family History: Significant for aneurysm disease and peripheral arterial disease. Allergies: TO BACLOFEN AND COMPAZINE. Home Medications: Include Colace, hydralazine, Plaquenil, losartan, Protonix, tramadol, Trelegy, Eli a-Lance, Synthroid, Lyrica, buspirone, ferric citrate, cyanocobalamin, albuterol, atenolol, Cardura, N eurontin, melatonin, oxybutynin, glucosamine. Review of Systems: A 10-point review of systems other than HPI, she has mild abdominal pain in the lower abdomen and rec shawna pain. She had some rectal bleeding described as well. Physical Examination: General: At the time of my examination; she is awake, alert, oriented. She was comfortable generall y. Psychiatric: Appropriate, conversive. HEENT: She is normocephalic. Sclerae anicteric. Mucous membranes moist. Oropharynx clear. Neck: Supple without JVD. Chest: Expansion and excursion. Cardiovascular: Regular rate and rhythm. Pulmonary: Clear to auscultation bilaterally. Abdomen: Soft with mild suprapubic tenderness to deep palpation only. No rebound. No guarding. No focal peritonitis. Extremities: No clubbing, cyanosis, edema. Rectal: She has blood on her perirectal examination. She has pain in the rectal area. Unable to to lerate a complete rectal examination at this point. Vital Signs: At the time of my examination were a blood pressure of 124/43, pulse 60, respiratory ra te 17, temperature is 97.7, and O2 saturation was 100% on room air. Laboratory Data: White blood cell count of 17, hemoglobin 8.2, hematocrit 25.1, platelet count was 7 1. Her sodium 140, potassium 4.8, chloride 109, carbon dioxide 25, BUN 37, creatinine 4.8, glucose 1 27. UA was very turbid with evidence for urinary tract infection. Hepatitis B was reactive on the o n the S-antibody. She had imaging performed, which included a CT abdomen and pelvis, officially read as bilateral trace pleural effusions slightly larger on the left, wall thickening along the anal can al with moderate pronounced mesorectal fat stranding. Findings may be related to mucosal inflammatio n, although possibly a small intramural abscess or adjacent fistula cannot be entirely excluded. Assessment And Plan: This is an 82-year-old female, who recently had APC, argon plasma coagulation o f perianal lesion and now comes in with evidence of rectal bleeding, proctitis. 1.IV fluid hydration. 2.Antibiotic coverage. 3.Serial exams. 4.I have explained that this likely is a sequelae of recent procedure performed during colonoscopy; however, it is below the peritoneal reflection and as such I recommend nonoperative management initia lly, n.p.o. initially and hydration via IV, we will transition to advancing her diet once she has imp rovement of her abdominal pain and clinical findings. 5.The patient may require reimaging if she does not improve to see if an abscess has occurred, altho ugh an abscess occurring 1 day after procedure seems highly unlikely and we will track her blood coun ts to make sure there is no significant blood loss as well. I have explained the risks, benefits, an d alternatives of the above stated plan. The patient agrees to proceed as indicated. Thank you for this interesting consult. MORGAN/ALL Voice ID: [id number] Report ID: [id number]
[2023-05-06] MEDS ORDERED: OXYBUTYNIN ER 5 MG TAB PO SCH (14:00)
--- NOTE | 2023-05-06 15:18 | P.PN ---
(S) Pt still citing various symptoms including some abdominal discomfort, dry skin, itching, other. Meds reconciled by primary team reviewed and various meds held (O) Vitals reviewed in the EMR General: Chronically ill, Other (Elderly) HEENT: Atraumatic, Normocephalic, Other (On O2 via NC) Neck: Supple Respiratory: Normal air movement, Other (No rhonchi) Cardiovascular: No edema, Regular rate/rhythm, Normal S1 S2 Gastrointestinal: Other (Soft, ND, mild generalized TTP, no guarding, BS hypoactive) Musculoskeletal: No clubbing, No swelling, No contractures Integumentary: No tenderness/swelling Neurological: Normal speech, Normal tone, Normal affect Conclusions/Impression: A/P) 1. ESRD with atrophic kidneys on imaging -cont iHD, pt on MWF schedule as OP but metab profile/chem panel stable and due to staff issues, pt's treatment got postponed until yesterday am. Next HD tmrw, depending on staffing avail. Pt can also receive HD at OP unit if cleared for discharge in another 24h or so. 2. Abdominal pain, rectal pain, diarrhea unspecified -CT findings noted, colonoscopy report not avail at this time. Pt seen by Gen Surgery. Symptomatically pt reports some improvement 3. Fever unspecified, leukocytosis, abnormal findings in urine, pyuria. UTI site unspecified POA, GNR bacteriuria, Ecoli and Staph on UCx. Based on sensitivities will switch to 1st gen Cephalosporin to cover for both organisms 4. Dose all meds for reduced CrCl 5. Chronic HTN with relative hypotension in the setting of GI losses, possibly infection, other. Limiting UF on HD, will give Albumin on HD if needed 6. Pt had several anti hypertensives all resumes but recommend holding Losartan, Hydralazine and Doxazosin and continuing just Atenolol and Isosorbide for now Sanjay Ferreira MD, MESHA
[2023-05-06] MEDS: HYDROCODONE/APAP 5/325 MG TAB PO PRN ×2 (15:35→21:17)
[2023-05-06] MEDS ORDERED: DOCUSATE SODIUM 250 MG PO SCH (21:00)
[2023-05-06] MEDS: PREGABALIN 25 MG PO SCH (21:00)
[2023-05-06] MEDS: DOCUSATE CALCIUM 240 MG CAP PO SCH (21:00)
[2023-05-06] MEDS: MELATONIN 5 MG TABLET PO PRN (21:18)
[2023-05-06] MEDS: OXYBUTYNIN ER 5 MG TAB PO SCH (21:25)
[2023-05-07] MEDS: HYDROCODONE/APAP 5/325 MG TAB PO PRN ×4 (02:01→21:49)
[2023-05-07 06:17] LABS: Hematocrit 24.8 % (36.0-45.0); Lymphocytes % 14.7 % (15.3-44.8); MCV 101.4 fL (80-100); MPV 9.5 fL (7.6-11.3); Platelets 80 thou/uL (152-406); RBC Red Blood Cell Count 2.44 M/uL (3.86-4.86)
[2023-05-07] MEDS: LEVOTHYROXINE SOD 0.112 MG TAB PO SCH (06:24)
[2023-05-07] MEDS: METRONIDAZOLE 500mg IVPB 500 MG/100 ML BAG IV SCH ×3 (06:24→21:39)
[2023-05-07] MEDS: PANTOPRAZOLE 40MG TABLET PO SCH ×2 (06:30→15:54)
[2023-05-07 06:40] LABS: Potassium 4.8 mEq/L (3.5-5.1)
--- NOTE | 2023-05-07 07:28 | P.PN ---
Date of Service: 05/07/23 Subjective: feeling a little better today no acute events overnight dialysis today decreased endurance and independeence level with bed mobility and transfers per PT note 05/07 afebrile ROS: 10 point ROS as noted above, otherwise negative Physical Exam: GEN: Alert, oriented, NAD HEENT: Normal conjunctiva, sclera anicteric CV: Regular rate and rhythm, no edema Pulm: Nonlabored respirations on 2L NC ABD: Soft, Lower abdominal tenderness, nondistended Neuro: Normal speech, normal affect vitals reviewed Problem List: Sepsis secondary to proctitis versus intramural abscess/fistula S/P colonoscopy 05/03/2023 UTI, E. coli, Staph Aureus ESRD on HD MWF Chronic diastolic CHF COPD, chronic Hypertension Hypothyroidism GERD Sepsis secondary to proctitis versus intramural abscess/fistula S/P colonoscopy 05/03/2023 SIRS criteria present including leukocytosis, tachycardia, fever, initial lactate less than [address] abdomen (05/03): New wall thickening along the anal canal with moderately pronounced mesorectal fat stranding. proctitis vs. small intramural abscess vs. adjacent fistula trace b/l pleural effusions, slightly larger on the left GI and general surgery consult in place continue flagyl (05/04-) and cefazolin (05/07-) continue IV fluids serial abdominal exams non operative management for now reg diet UTI, E. coli, Staph Aureus urine cx(05/04): E. coli, Staph Aureus previously on levaquin / rocephin continue flagyl (05/04-) and cefazolin (05/07-) afebrile since 05/05; leukocytosis improving ESRD on HD MWF Nephrology consult, compliant with dialysis thus far. dialysis per nephrology - tentative HD today pending staffing availability Chronic diastolic CHF Appears compensated. COPD, chronic As needed breathing treatments. PRN inhaler Hypertension Nephrology recommend holding Losartan, Hydralazine and Doxazosin continuing just Atenolol and Isosorbide for now Hypothyroidism GERD Continue home medications Code: Full Dispo: Home
[2023-05-07] MEDS ORDERED: FOLIC ACID PO SCH (09:00)
[2023-05-07] MEDS ORDERED: VIT B COMPLEX AND C PO SCH (09:00)
[2023-05-07] MEDS ORDERED: ISOSORBIDE MONO SR 60 MG TAB PO SCH (09:00)
[2023-05-07] MEDS: atenoloL 25 MG TAB PO SCH (09:15)
[2023-05-07] MEDS: BUSPIRONE HCL 5 MG TABLET PO SCH ×3 (09:15→21:38)
[2023-05-07] MEDS: TRAMADOL HCL 50 MG TAB PO PRN (09:15)
[2023-05-07] MEDS: GABAPENTIN 100 MG CAP PO SCH (09:16)
[2023-05-07] MEDS: HYDROXYCHLOROQUINE 200MG TAB PO SCH (09:16)
[2023-05-07] MEDS: MULTIVITAMINS,THERAPEUT 1 TAB PO SCH (09:16)
[2023-05-07] MEDS: CEFAZOLIN 1 GM in NA CHLORIDE 0.9% 50 ML IVPB SCH (09:16)
[2023-05-07] MEDS: OXYBUTYNIN ER 5 MG TAB PO SCH ×2 (09:16→21:38)
--- NOTE | 2023-05-07 20:54 | P.PN ---
Date of Service: 05/07/23 Vital Signs Temp Pulse Resp BP Pulse Ox 99.0 F 71 18 180/69 H 99 05/07/23 16:00 05/07/23 16:00 05/07/23 16:00 05/07/23 16:00 05/07/23 16:00 Medications Acetaminophen (Acetaminophen 500 Mg Tab) 500 mg PO Q4HP PRN PRN Reason: TEMP > 100' F Last Admin: 05/05/23 06:06 Dose: 500 mg Hydrocodone Bitart/Acetaminophen (Hydrocodone/Apap 5/325 Mg Tab) 1 tab PO Q4HP PRN PRN Reason: Pain scale 5-7 (Moderate) Last Admin: 05/07/23 15:54 Dose: 1 tab Albuterol Sulfate (Albuterol Inhaler 60 Puff/8 Gm) 2 puff IH Q4HP PRN PRN Reason: SHORTNESS OF BREATH Atenolol (Atenolol 25 Mg Tab) 25 mg PO DAILY [facility] Last Admin: 05/07/23 09:15 Dose: 25 mg Buspirone HCl (Buspirone Hcl 5 Mg Tablet) 5 mg PO TID [facility] Last Admin: 05/07/23 15:53 Dose: 5 mg Docusate Calcium (Docusate Calcium 240 Mg Cap) 240 mg PO BEDTIME [facility] Last Admin: 05/06/23 21:00 Dose: 240 mg Gabapentin (Gabapentin 100 Mg Cap) 100 mg PO DAILY [facility] Last Admin: 05/07/23 09:16 Dose: 100 mg Home Med (Pregabalin [Lyrica]) 25 mg PO BEDTIME [facility] Last Admin: 05/06/23 21:00 Dose: Not Given Home Med (Fluticasone/Umeclidin/Vilanter [Trelegy Ellipta 100-62.5-25]) 1 inh IH DAILY PRN PRN Reason: SHORTNESS OF BREATH Hydroxychloroquine Sulfate (Hydroxychloroquine 200mg Tab) 200 mg PO DAILY [facility] Last Admin: 05/07/23 09:16 Dose: 200 mg Metronidazole/Sodium Chloride (Flagyl 500mg/100 Ml Iv Premix) 500 mg in 100 mls @ 200 mls/hr IV Q8H [facility]; Protocol Last Admin: 05/07/23 15:54 Dose: 100 mls Cefazolin Sodium 1 gm/ Sodium (Chloride) 50 mls @ 100 mls/hr IVPB Q24H [facility]; Protocol Last Admin: 05/07/23 09:16 Dose: 50 mls Isosorbide Mononitrate (Isosorbide [place] Sr 30 Mg Tab) 30 mg PO DAILY [facility] Levothyroxine Sodium (Levothyroxine Sod 0.112 Mg Tab) 0.112 mg PO DAILYAC [facility] Last Admin: 05/07/23 06:24 Dose: 0.112 mg Melatonin (Melatonin 5 Mg Tablet) 5 mg PO BEDTIME PRN PRN PRN Reason: INSOMNIA Last Admin: 05/06/23 21:18 Dose: 5 mg Morphine Sulfate (Morphine 2 Mg/Ml Syr) 2 mg IV Q4H PRN PRN Reason: Pain scale 8-10 (Severe) Last Admin: 05/06/23 09:46 Dose: 2 mg Ondansetron HCl (Ondansetron 4 Mg/2 Ml Vial) 4 mg IV Q6HP PRN PRN Reason: NAUSEA / VOMITING Oxybutynin Chloride (Oxybutynin Er 5 Mg Tab) 5 mg PO BID [facility] Last Admin: 05/07/23 09:16 Dose: 5 mg Pantoprazole Sodium (Pantoprazole 40mg Tablet) 40 mg PO BIDAC [facility]; Protocol Last Admin: 05/07/23 15:54 Dose: 40 mg Sodium Chloride (Flush Normal Saline 10 Ml) 10 ml IV BID [facility] Last Admin: 05/07/23 09:17 Dose: 10 ml Tramadol HCl (Tramadol Hcl 50 Mg Tab) 50 mg PO BID PRN PRN Reason: Pain scale 2-4 (Mild) Last Admin: 05/07/23 09:15 Dose: 50 mg Vitamin B Complex/Vit C/Folic Acid (Multivitamins,Therapeut 1 Tab) 1 tab PO DAILY [facility] Last Admin: 05/07/23 09:16 Dose: 1 tab Microbiology Results 05/04/23 00:02 Catheterized Urine [place] Count - Final >100,000 CFU/ML. 05/04/23 00:02 Catheterized Urine - Final Escherichia Coli Staph Aureus Gram Neg Aurelio 05/03/23 22:03 Blood - Blood Aerobic Blood Culture - Preliminary No growth in 24 hours. 05/03/23 22:03 Blood - Blood Anaerobic Blood Culture - Preliminary No growth in 24 hours. 05/03/23 21:45 Blood - Blood Aerobic Blood Culture - Preliminary No growth in 24 hours. 05/03/23 21:45 Blood - Blood Anaerobic Blood Culture - Preliminary No growth in 24 hours. Assessment/ Plan: Nephrology No dyspnea No chest pain Fatigue and weakness No acute events overnight Vitals, medications, blood work and imaging reviewed in the chart. NAD. Obese. NCAT. MMM. Neck supple. Normal respiratory effort. RRR. Abd ND. No C/C. LE Edema. No rash. AAO. Normal speech ESRD on HD -HD TIW -Acute HD today -Seen and examined on HD Hyponatremia Hyperkalemia -Acute HD HTN with CKD/ CHF -Continue Atenolol Diastolic CHF, chronic -HD with UF Anemia in CKD -Retacrit prn CKD MBD -Start Ergo Proctitis Acute E.coli & Staph Cystitis -Continue abx Case reviewed with Dr. Chow
[2023-05-07] MEDS: PREGABALIN 25 MG PO SCH (21:00)
[2023-05-07] MEDS ORDERED: LOSARTAN POTASSIUM 50 MG TABLET PO SCH (21:00)
[2023-05-07] MEDS: DOCUSATE CALCIUM 240 MG CAP PO SCH (21:00)
[2023-05-08] MEDS: LEVOTHYROXINE SOD 0.112 MG TAB PO SCH (06:21)
[2023-05-08] MEDS: HYDROCODONE/APAP 5/325 MG TAB PO PRN ×3 (06:21→20:16)
[2023-05-08] MEDS: METRONIDAZOLE 500mg IVPB 500 MG/100 ML BAG IV SCH ×3 (06:22→21:55)
[2023-05-08] MEDS: PANTOPRAZOLE 40MG TABLET PO SCH ×2 (08:45→13:55)
[2023-05-08] MEDS: MULTIVITAMINS,THERAPEUT 1 TAB PO SCH (08:46)
[2023-05-08] MEDS: DRISDOL (VITAMIN D=ERGOCALCIFEROL) 50000 UNIT CAP PO SCH (08:46)
[2023-05-08] MEDS: BUSPIRONE HCL 5 MG TABLET PO SCH ×3 (08:46→20:17)
[2023-05-08] MEDS: ISOSORBIDE MONO SR 30 MG TAB PO SCH (08:46)
[2023-05-08] MEDS: GABAPENTIN 100 MG CAP PO SCH (08:47)
[2023-05-08] MEDS: atenoloL 25 MG TAB PO SCH (08:47)
[2023-05-08] MEDS: OXYBUTYNIN ER 5 MG TAB PO SCH ×2 (08:47→20:17)
[2023-05-08] MEDS: HYDROXYCHLOROQUINE 200MG TAB PO SCH (08:48)
[2023-05-08] MEDS: CEFAZOLIN 1 GM in NA CHLORIDE 0.9% 50 ML IVPB SCH (08:51)
[2023-05-08 13:24] LABS: Absolute Lymphocytes (CBC) 0.8 K/uL (0.7-4.9); Hematocrit 25.7 % (36.0-45.0); Lymphocytes % 13.8 % (15.3-44.8); MCV 102.2 fL (80-100); MPV 9.7 fL (7.6-11.3); Platelets 91 thou/uL (152-406); RBC Red Blood Cell Count 2.52 M/uL (3.86-4.86)
[2023-05-08 13:38] LABS: AST/SGOT 12 U/L (15-37); Albumin 2.4 g/dL (3.4-5.0); Alkaline Phosphatase 56 U/L (45-117); BUN Blood Urea Nitrogen 28 mg/dL (7-18); Bicarbonate 27 mEq/L (21-32); Bilirubin Total 0.3 mg/dL (0.2-1.0); Glomerular Filtration Rate 11 ml/min (=/>90); Glucose Level 104 mg/dL (74-106); Phosphorus 4.7 mg/dL (2.5-4.9); Potassium 4.7 mEq/L (3.5-5.1); Protein, Total 5.8 g/dL (6.4-8.2); Sodium Level 132 mEq/L (136-145)
[2023-05-08 13:40] LABS: ALT/SGPT < 10 U/L (13-56)
[2023-05-08] MEDS: POLYETHYL GLY 3350 17 GM/DOSE PO SCH (13:56)
--- NOTE | 2023-05-08 17:21 | P.PN ---
Subjective Date of Service: 05/08/23 Chief Complaint: Proctitis, sepsis Patient is complaining of suprapubic pain and constipation. Patient reports no bowel movement for 4 days. Status post hemodialysis yesterday. Physical Examination - Vital Signs Temperature: 98.4 F Blood Pressure: 170/72 Pulse: 58 Respirations: 16 Pulse Ox (%): 100 Assessment And Plan - Plan Physical Exam: GEN: Alert, oriented, NAD HEENT: Normal conjunctiva, sclera anicteric CV: Regular rate and rhythm, no edema Pulm: Nonlabored respirations on 2L NC ABD: Soft, Lower abdominal tenderness, nondistended. Neuro: Normal speech, normal affect vitals reviewed Problem List: Sepsis secondary to proctitis versus intramural abscess/fistula S/P colonoscopy 05/03/2023 UTI, E. coli, Staph Aureus ESRD on HD MWF Chronic diastolic CHF COPD, chronic Hypertension Hypothyroidism GERD Sepsis secondary to proctitis versus intramural abscess/fistula S/P colonoscopy 05/03/2023 SIRS criteria present including leukocytosis, tachycardia, fever. CT abdomen (05/03): New wall thickening along the anal canal with moderately pronounced mesorectal fat stranding. proctitis vs. small intramural abscess vs. adjacent fistula trace b/l pleural effusions, slightly larger on the left GI and general surgery consult in place continue flagyl (05/04-) and cefazolin () continue IV fluids serial abdominal exams. non operative management for now Diet as tolerated. UTI, E. coli, Staph Aureus urine cx(05/04): E. coli, Staph Aureus previously on levaquin / rocephin continue flagyl (05/04-) and cefazolin (05/07-) afebrile since 05/05; leukocytosis resolved. Bladder scan done: No urinary retention ESRD on HD MWF Nephrology consult, compliant with dialysis thus far. dialysis per nephrology - tentative HD today pending staffing availability Chronic diastolic CHF Appears compensated. COPD, chronic As needed breathing treatments. PRN inhaler Hypertension Nephrology recommend holding Losartan, Hydralazine and Doxazosin continuing just Atenolol and Isosorbide for now Hypothyroidism GERD Continue home medications Functional constipation Stool softeners and laxatives. Code: Full
--- NOTE | 2023-05-08 19:42 | P.PN ---
Date of Service: 05/08/23 Vital Signs Temp Pulse Resp BP Pulse Ox 98.4 F 58 16 170/72 H 100 05/08/23 17:20 05/08/23 17:20 05/08/23 17:20 05/08/23 17:20 05/08/23 17:20 Medications Acetaminophen (Acetaminophen 500 Mg Tab) 500 mg PO Q4HP PRN PRN Reason: TEMP > 100' F Last Admin: 05/05/23 06:06 Dose: 500 mg Hydrocodone Bitart/Acetaminophen (Hydrocodone/Apap 5/325 Mg Tab) 1 tab PO Q4HP PRN PRN Reason: Pain scale 5-7 (Moderate) Last Admin: 05/08/23 13:03 Dose: 1 tab Albuterol Sulfate (Albuterol Inhaler 60 Puff/8 Gm) 2 puff IH Q4HP PRN PRN Reason: SHORTNESS OF BREATH Atenolol (Atenolol 25 Mg Tab) 25 mg PO DAILY [facility] Last Admin: 05/08/23 08:47 Dose: 25 mg Buspirone HCl (Buspirone Hcl 5 Mg Tablet) 5 mg PO TID [facility] Last Admin: 05/08/23 13:55 Dose: 5 mg Docusate Calcium (Docusate Calcium 240 Mg Cap) 240 mg PO BEDTIME [facility] Last Admin: 05/07/23 21:00 Dose: 240 mg Ergocalciferol (Drisdol (Vitamin D=Ergocalciferol) 10738 Unit Cap) 50,000 unit PO Q48H [facility] Stop: 05/10/23 09:01 Last Admin: 05/08/23 08:46 Dose: 50,000 unit Gabapentin (Gabapentin 100 Mg Cap) 100 mg PO DAILY [facility] Last Admin: 05/08/23 08:47 Dose: 100 mg Home Med (Pregabalin [Lyrica]) 25 mg PO BEDTIME [facility] Last Admin: 05/07/23 21:00 Dose: Not Given Home Med (Fluticasone/Umeclidin/Vilanter [Trelegy Ellipta 100-62.5-25]) 1 inh IH DAILY PRN PRN Reason: SHORTNESS OF BREATH Hydroxychloroquine Sulfate (Hydroxychloroquine 200mg Tab) 200 mg PO DAILY [facility] Last Admin: 05/08/23 08:48 Dose: 200 mg Metronidazole/Sodium Chloride (Flagyl 500mg/100 Ml Iv Premix) 500 mg in 100 mls @ 200 mls/hr IV Q8H [facility]; Protocol Last Admin: 05/08/23 13:55 Dose: 100 mls Cefazolin Sodium 1 gm/ Sodium (Chloride) 50 mls @ 100 mls/hr IVPB Q24H [facility]; Protocol Last Admin: 05/08/23 08:51 Dose: 50 mls Isosorbide Mononitrate (Isosorbide [place] Sr 30 Mg Tab) 30 mg PO DAILY [facility] Last Admin: 05/08/23 08:46 Dose: 30 mg Levothyroxine Sodium (Levothyroxine Sod 0.112 Mg Tab) 0.112 mg PO DAILYAC [facility] Last Admin: 05/08/23 06:21 Dose: 0.112 mg Melatonin (Melatonin 5 Mg Tablet) 5 mg PO BEDTIME PRN PRN PRN Reason: INSOMNIA Last Admin: 05/06/23 21:18 Dose: 5 mg Morphine Sulfate (Morphine 2 Mg/Ml Syr) 2 mg IV Q4H PRN PRN Reason: Pain scale 8-10 (Severe) Last Admin: 05/06/23 09:46 Dose: 2 mg Ondansetron HCl (Ondansetron 4 Mg/2 Ml Vial) 4 mg IV Q6HP PRN PRN Reason: NAUSEA / VOMITING Oxybutynin Chloride (Oxybutynin Er 5 Mg Tab) 5 mg PO BID [facility] Last Admin: 05/08/23 08:47 Dose: 5 mg Pantoprazole Sodium (Pantoprazole 40mg Tablet) 40 mg PO BIDAC [facility]; Protocol Last Admin: 05/08/23 13:55 Dose: 40 mg Polyethylene Glycol (Polyethyl Gly 3350 17 Gm/Dose) 17 gm PO BID [facility] Stop: 05/11/23 09:01 Last Admin: 05/08/23 13:56 Dose: 17 gm Sodium Chloride (Flush Normal Saline 10 Ml) 10 ml IV BID [facility] Last Admin: 05/08/23 08:45 Dose: 10 ml Tramadol HCl (Tramadol Hcl 50 Mg Tab) 50 mg PO BID PRN PRN Reason: Pain scale 2-4 (Mild) Last Admin: 05/07/23 09:15 Dose: 50 mg Vitamin B Complex/Vit C/Folic Acid (Multivitamins,Therapeut 1 Tab) 1 tab PO DAILY [facility] Last Admin: 05/08/23 08:46 Dose: 1 tab Microbiology Results 05/04/23 00:02 Catheterized Urine [place] Count - Final >100,000 CFU/ML. 05/04/23 00:02 Catheterized Urine - Final Escherichia Coli Staph Aureus Gram Neg Aurelio 05/03/23 22:03 Blood - Blood Aerobic Blood Culture - Preliminary No growth in 24 hours. 05/03/23 22:03 Blood - Blood Anaerobic Blood Culture - Preliminary No growth in 24 hours. 05/03/23 21:45 Blood - Blood Aerobic Blood Culture - Preliminary No growth in 24 hours. 05/03/23 21:45 Blood - Blood Anaerobic Blood Culture - Preliminary No growth in 24 hours. Assessment/ Plan: Nephrology No dyspnea No chest pain Constipation No acute events overnight Vitals, medications, blood work and imaging reviewed in the chart. NAD. Obese. NCAT. MMM. Neck supple. Normal respiratory effort. RRR. Abd ND. No C/C. LE Edema. No rash. AAO. Normal speech ESRD on HD -HD TIW Hyponatremia Hyperkalemia -HD TIW HTN with CKD/ CHF -Continue Atenolol Diastolic CHF, chronic -HD with UF Anemia in CKD -Retacrit prn CKD MBD -Continue Ergo Proctitis Acute E.coli & Staph Cystitis -Continue abx Slow Transit Constipation -Continue Miralax & Colace Case reviewed with Dr. Chow
--- NOTE | 2023-05-08 20:26 | RAD REPORT ---
EXAM DESCRIPTION: RAD - Chest Single View - 05/08/2023 8:19 pm CLINICAL HISTORY: LEFT RIB PAIN Chest pain. COMPARISON: <Comparisons> FINDINGS: Portable technique limits examination quality. The lungs are grossly clear. The heart is moderately enlarged in size. Small left pleural effusion.Pr oximal right humeral hardware. Cervical spine plate noted. No gross rib abnormality detected.
--- NOTE | 2023-05-08 20:28 | RAD REPORT ---
EXAM DESCRIPTION: RAD - Hip Left 2 View - 05/08/2023 8:19 pm CLINICAL HISTORY: LEFT HIP PAIN COMPARISON: <Comparisons> FINDINGS: Marked abnormality of the left hip is present. There is no visible normal left femoral hea d or neck. Marked heterotopic new bone is seen with superiorly located position of the proximal left femur relative to the left acetabulum. This is likely attributable to long-standing hip dislocation o r dysplasia. No acute fracture seen.
[2023-05-08] MEDS: PREGABALIN 25 MG PO SCH (21:00)
[2023-05-08] MEDS: DOCUSATE CALCIUM 240 MG CAP PO SCH (21:00)
[2023-05-09 03:14] LABS: Absolute Lymphocytes (CBC) 0.9 K/uL (0.7-4.9); Hematocrit 23.8 % (36.0-45.0); Lymphocytes % 17.6 % (15.3-44.8); MCV 101.8 fL (80-100); MPV 9.3 fL (7.6-11.3); Platelets 97 thou/uL (152-406); RBC Red Blood Cell Count 2.34 M/uL (3.86-4.86)
[2023-05-09 03:40] LABS: Potassium 4.5 mEq/L (3.5-5.1)
[2023-05-09] MEDS: HYDROCODONE/APAP 5/325 MG TAB PO PRN ×4 (05:53→23:02)
[2023-05-09] MEDS: LEVOTHYROXINE SOD 0.112 MG TAB PO SCH (05:54)
[2023-05-09] MEDS: METRONIDAZOLE 500mg IVPB 500 MG/100 ML BAG IV SCH ×3 (05:54→21:44)
[2023-05-09] MEDS: CEFAZOLIN 1 GM in NA CHLORIDE 0.9% 50 ML IVPB SCH (09:52)
[2023-05-09] MEDS: BUSPIRONE HCL 5 MG TABLET PO SCH ×3 (09:53→21:46)
[2023-05-09] MEDS: GABAPENTIN 100 MG CAP PO SCH (09:53)
[2023-05-09] MEDS: POLYETHYL GLY 3350 17 GM/DOSE PO SCH ×2 (09:53→21:45)
[2023-05-09] MEDS: ISOSORBIDE MONO SR 30 MG TAB PO SCH (09:53)
[2023-05-09] MEDS: atenoloL 25 MG TAB PO SCH (09:53)
[2023-05-09] MEDS: PANTOPRAZOLE 40MG TABLET PO SCH ×2 (09:53→15:56)
[2023-05-09] MEDS: MULTIVITAMINS,THERAPEUT 1 TAB PO SCH (09:53)
[2023-05-09] MEDS ORDERED: MAGNESIUM CITRATE 300 ML BOT PO SCH (10:00)
[2023-05-09] MEDS: HYDROXYCHLOROQUINE 200MG TAB PO SCH (10:13)
[2023-05-09] MEDS: OXYBUTYNIN ER 5 MG TAB PO SCH ×2 (10:13→21:46)
--- NOTE | 2023-05-09 17:00 | P.PN ---
Subjective Date of Service: 05/09/23 Chief Complaint: Proctitis, sepsis Patient had multiple bowel movement after laxatives given today. No issues overnight. Physical Examination - Vital Signs Temperature: 97.6 F Blood Pressure: 146/54 Pulse: 63 Respirations: 17 Pulse Ox (%): 100 - Studies Microbiology Data (last 24 hrs): 05/03/23 22:03 Blood - Blood Aerobic Blood Culture - Final No growth in 5 days. 05/03/23 22:03 Blood - Blood Anaerobic Blood Culture - Final No growth in 5 days. 05/03/23 21:45 Blood - Blood Aerobic Blood Culture - Final No growth in 5 days. 05/03/23 21:45 Blood - Blood Anaerobic Blood Culture - Final No growth in 5 days. Assessment And Plan - Plan Physical Exam: GEN: Alert, oriented, NAD CV: Regular rate and rhythm, no edema Pulm: Nonlabored respirations on 2L NC ABD: Soft, nontender, nondistended. Neuro: Normal speech, normal affect vitals reviewed Problem List: Sepsis secondary to proctitis versus intramural abscess/fistula S/P colonoscopy 05/03/2023 UTI, E. coli, Staph Aureus ESRD on HD MWF Chronic diastolic CHF COPD, chronic Hypertension Hypothyroidism GERD Sepsis secondary to proctitis versus intramural abscess/fistula S/P colonoscopy 05/03/2023 SIRS criteria present including leukocytosis, tachycardia, fever. CT abdomen (05/03): New wall thickening along the anal canal with moderately pronounced mesorectal fat stranding. proctitis vs. small intramural abscess vs. adjacent fistula trace b/l pleural effusions, slightly larger on the left GI and general surgery consulted continue flagyl (05/04-) and cefazolin () continue IV fluids serial abdominal exams. non operative management for now Diet as tolerated. UTI, E. coli, Staph Aureus urine cx(05/04): E. coli, Staph Aureus previously on levaquin / rocephin continue flagyl (05/04-) and cefazolin () afebrile since 05/05; leukocytosis resolved. Bladder scan done: No urinary retention ESRD on HD MWF Nephrology is following dialysis per nephrology. Patient is currently undergoing routine hemodialysis. Chronic diastolic CHF Appears compensated. COPD, chronic As needed breathing treatments. PRN inhaler Hypertension Labile BP Nephrology recommend holding Losartan, Hydralazine and Doxazosin continuing Atenolol and Isosorbide for now Hypothyroidism GERD Continue home medications Functional constipation Managed with stool softeners and laxatives. Patient had multiple bowel movements today. Code: Full
[2023-05-09] MEDS: PREGABALIN 25 MG PO SCH (21:00)
[2023-05-09] MEDS: DOCUSATE CALCIUM 240 MG CAP PO SCH (21:00)
--- NOTE | 2023-05-09 21:33 | P.PN ---
Date of Service: 05/09/23 Vital Signs Temp Pulse Resp BP Pulse Ox 97.6 F 63 17 146/54 H 100 05/09/23 17:00 05/09/23 17:00 05/09/23 17:00 05/09/23 17:00 05/09/23 17:00 Medications Acetaminophen (Acetaminophen 500 Mg Tab) 500 mg PO Q4HP PRN PRN Reason: TEMP > 100' F Last Admin: 05/05/23 06:06 Dose: 500 mg Hydrocodone Bitart/Acetaminophen (Hydrocodone/Apap 5/325 Mg Tab) 1 tab PO Q4HP PRN PRN Reason: Pain scale 5-7 (Moderate) Last Admin: 05/09/23 14:47 Dose: 1 tab Albuterol Sulfate (Albuterol Inhaler 60 Puff/8 Gm) 2 puff IH Q4HP PRN PRN Reason: SHORTNESS OF BREATH Atenolol (Atenolol 25 Mg Tab) 25 mg PO DAILY [facility] Last Admin: 05/09/23 09:53 Dose: 25 mg Buspirone HCl (Buspirone Hcl 5 Mg Tablet) 5 mg PO TID [facility] Last Admin: 05/09/23 13:40 Dose: 5 mg Docusate Calcium (Docusate Calcium 240 Mg Cap) 240 mg PO BEDTIME [facility] Last Admin: 05/08/23 21:00 Dose: 240 mg Ergocalciferol (Drisdol (Vitamin D=Ergocalciferol) 12274 Unit Cap) 50,000 unit PO Q48H [facility] Stop: 05/10/23 09:01 Last Admin: 05/08/23 08:46 Dose: 50,000 unit Gabapentin (Gabapentin 100 Mg Cap) 100 mg PO DAILY [facility] Last Admin: 05/09/23 09:53 Dose: 100 mg Heparin Sodium (Porcine) (Heparin 1,000 Unit/Ml Vial) 2,000 unit IV EVERY HD PRN PRN Reason: to prevent clotting of the HD Last Admin: 05/09/23 17:35 Dose: 2,000 unit Home Med (Pregabalin [Lyrica]) 25 mg PO BEDTIME [facility] Last Admin: 05/08/23 21:00 Dose: Not Given Home Med (Fluticasone/Umeclidin/Vilanter [Trelegy Ellipta 100-62.5-25]) 1 inh IH DAILY PRN PRN Reason: SHORTNESS OF BREATH Hydroxychloroquine Sulfate (Hydroxychloroquine 200mg Tab) 200 mg PO DAILY [facility] Last Admin: 05/09/23 10:13 Dose: 200 mg Metronidazole/Sodium Chloride (Flagyl 500mg/100 Ml Iv Premix) 500 mg in 100 mls @ 200 mls/hr IV Q8H [facility]; Protocol Last Admin: 05/09/23 13:38 Dose: 100 mls Cefazolin Sodium 1 gm/ Sodium (Chloride) 50 mls @ 100 mls/hr IVPB Q24H [facility]; Protocol Last Admin: 05/09/23 09:52 Dose: 50 mls Isosorbide Mononitrate (Isosorbide [place] Sr 30 Mg Tab) 30 mg PO DAILY [facility] Last Admin: 05/09/23 09:53 Dose: 30 mg Levothyroxine Sodium (Levothyroxine Sod 0.112 Mg Tab) 0.112 mg PO DAILYAC [facility] Last Admin: 05/09/23 05:54 Dose: 0.112 mg Melatonin (Melatonin 5 Mg Tablet) 5 mg PO BEDTIME PRN PRN PRN Reason: INSOMNIA Last Admin: 05/06/23 21:18 Dose: 5 mg Morphine Sulfate (Morphine 2 Mg/Ml Syr) 2 mg IV Q4H PRN PRN Reason: Pain scale 8-10 (Severe) Last Admin: 05/06/23 09:46 Dose: 2 mg Ondansetron HCl (Ondansetron 4 Mg/2 Ml Vial) 4 mg IV Q6HP PRN PRN Reason: NAUSEA / VOMITING Last Admin: 05/09/23 12:32 Dose: 4 mg Oxybutynin Chloride (Oxybutynin Er 5 Mg Tab) 5 mg PO BID [facility] Last Admin: 05/09/23 10:13 Dose: 5 mg Pantoprazole Sodium (Pantoprazole 40mg Tablet) 40 mg PO BIDAC [facility]; Protocol Last Admin: 05/09/23 15:56 Dose: 40 mg Polyethylene Glycol (Polyethyl Gly 3350 17 Gm/Dose) 17 gm PO BID [facility] Stop: 05/11/23 09:01 Last Admin: 05/09/23 09:53 Dose: 17 gm Sodium Chloride (Flush Normal Saline 10 Ml) 10 ml IV BID [facility] Last Admin: 05/09/23 10:13 Dose: 10 ml Tramadol HCl (Tramadol Hcl 50 Mg Tab) 50 mg PO BID PRN PRN Reason: Pain scale 2-4 (Mild) Last Admin: 05/07/23 09:15 Dose: 50 mg Vitamin B Complex/Vit C/Folic Acid (Multivitamins,Therapeut 1 Tab) 1 tab PO DAILY [facility] Last Admin: 05/09/23 09:53 Dose: 1 tab Microbiology Results 05/03/23 22:03 Blood - Blood Aerobic Blood Culture - Final No growth in 5 days. 05/03/23 22:03 Blood - Blood Anaerobic Blood Culture - Final No growth in 5 days. 05/03/23 21:45 Blood - Blood Aerobic Blood Culture - Final No growth in 5 days. 05/03/23 21:45 Blood - Blood Anaerobic Blood Culture - Final No growth in 5 days. 05/04/23 00:02 Catheterized Urine [place] Count - Final >100,000 CFU/ML. 05/04/23 00:02 Catheterized Urine - Final Escherichia Coli Staph Aureus Gram Neg Aurelio Assessment/ Plan: Nephrology No dyspnea No chest pain Constipation Malaise and fatigue No acute events overnight Vitals, medications, blood work and imaging reviewed in the chart. NAD. Obese. NCAT. MMM. Neck supple. Normal respiratory effort. RRR. Abd ND. No C/C. LE Edema. No rash. AAO. Normal speech ESRD on HD -HD TIW Hyponatremia Hyperkalemia -HD TIW HTN with CKD/ CHF -Continue Atenolol Diastolic CHF, chronic -HD with UF Anemia in CKD -Retacrit prn CKD MBD -Continue Ergo Proctitis Acute E.coli & Staph Cystitis -Continue abx Slow Transit Constipation -Continue Miralax & Colace Hospitalist note reviewed
[2023-05-09] MEDS: MELATONIN 5 MG TABLET PO PRN (21:46)
[2023-05-10] MEDS: METRONIDAZOLE 500mg IVPB 500 MG/100 ML BAG IV SCH (05:09)
[2023-05-10] MEDS: LEVOTHYROXINE SOD 0.112 MG TAB PO SCH (05:09)
[2023-05-10] MEDS: HYDROCODONE/APAP 5/325 MG TAB PO PRN ×2 (05:10→09:06)
[2023-05-10] MEDS: CEFAZOLIN 1 GM in NA CHLORIDE 0.9% 50 ML IVPB SCH (08:56)
[2023-05-10] MEDS: ISOSORBIDE MONO SR 30 MG TAB PO SCH (08:57)
[2023-05-10] MEDS: DRISDOL (VITAMIN D=ERGOCALCIFEROL) 50000 UNIT CAP PO SCH (08:57)
[2023-05-10] MEDS: MULTIVITAMINS,THERAPEUT 1 TAB PO SCH (08:57)
[2023-05-10] MEDS: BUSPIRONE HCL 5 MG TABLET PO SCH (08:58)
[2023-05-10] MEDS: GABAPENTIN 100 MG CAP PO SCH (08:58)
[2023-05-10] MEDS: atenoloL 25 MG TAB PO SCH (08:58)
[2023-05-10] MEDS: PANTOPRAZOLE 40MG TABLET PO SCH (08:58)
[2023-05-10] MEDS: OXYBUTYNIN ER 5 MG TAB PO SCH (08:58)
[2023-05-10] MEDS: HYDROXYCHLOROQUINE 200MG TAB PO SCH (08:58)
[2023-05-10] MEDS: POLYETHYL GLY 3350 17 GM/DOSE PO SCH (08:58)
[2023-05-10 09:00] VITALS: BP 127/42
--- NOTE | 2023-05-10 09:10 | P.DS ---
Admission Date: 05/04/23 Discharge Date: 05/10/23 Disposition: ROUTINE DISCHARGE Discharge Condition: GOOD Reason for Admission: Proctitis, sepsis Brief History of Present Illness: 82-year-old female with history of ESRD on HD MWF, COPD, chronic diastolic congestive heart failure, hypertension, hypothyroidism, GERD presents emergency department with chief complaint of abdominal pain, vomiting, rectal pain. She reports that she had an outpatient colonoscopy performed on the morning of 05/03/2023 and subsequently developed abdominal pain, rectal pain and vomiting. She was evaluated here in the emergency department found to be febrile on presentation to the emergency department her labs are significant for leukocytosis white blood cell count 14 hemoglobin 10 hematocrit 29.8 platelet count 77 sodium 140 creatinine 4.8 GFR 8 BUN [address] chest abdomen pelvis without contrast demonstrated new wall thickening along the anal canal with moderately pronounced mesorectal fat stranding. Findings may relate to mucosal inflammation although possibility of a small intramural abscess or adjacent fistula cannot be entirely excluded. ED physician spoke with general surgery and GI on-call who recommends admission to the hospital service for further evaluation. Hospital Course: Diagnosis Sepsis secondary to proctitis versus intramural abscess/fistula S/P colonoscopy 05/03/2023 UTI, E. coli, Staph Aureus ESRD on HD MWF Chronic diastolic CHF COPD, chronic Hypertension Hypothyroidism GERD Sepsis secondary to proctitis versus intramural abscess/fistula S/P colonoscopy 05/03/2023 SIRS criteria present including leukocytosis, tachycardia, fever. CT abdomen (05/03): New wall thickening along the anal canal with moderately pronounced mesorectal fat stranding. proctitis vs. small intramural abscess vs. adjacent fistula trace b/l pleural effusions, slightly larger on the left GI and general surgery consulted. Non operative management recommended Patient treated for flagyl (05/04-) and cefazolin (05/07-) Antibiotics transition to oral cefpodoxime, flagyl and doxycycline. UTI, E. coli, Staph Aureus urine cx(05/04): E. coli, Staph Aureus previously on levaquin / rocephin, then flagyl (05/04-) and cefazolin (05/07-) afebrile since 05/05; leukocytosis resolved. Bladder scan done: No urinary retention. Patient discharged with cefpodoxime and doxycycline. ESRD on HD MWF Seen by nephrology Patient is currently undergoing routine hemodialysis. Hyponatremia Management with dialysis. Chronic diastolic CHF Appears compensated. COPD, chronic As needed breathing treatments. PRN inhaler Hypertension Labile BP Nephrology recommend holding Losartan, Hydralazine and Doxazosin continuing Atenolol and Isosorbide for now Hypothyroidism GERD Continue home medications Functional constipation Managed with stool softeners and laxatives. Patient had multiple bowel movements. Left hip pain X-ray demonstrated old dislocated right hip. Patient reported she has had about 5 surgeries on that hip. Follow-up with his orthopedic as outpatient. Vital Signs/Physical Exam: Temp Pulse Resp BP Pulse Ox 97.8 F 52 18 127/42 L 96 05/10/23 04:00 05/10/23 08:58 05/10/23 09:06 05/10/23 08:58 05/10/23 09:06 General: Alert, In no apparent distress, Oriented x3 HEENT: Mucous membr. moist/pink Neck: JVD not distended Respiratory: Clear to auscultation bilaterally, Normal air movement Cardiovascular: Regular rate/rhythm, Normal S1 S2 Gastrointestinal: Normal bowel sounds, Soft and benign, Non-distended Musculoskeletal: No swelling Integumentary: No cyanosis Neurological: Normal strength at 5/5 x4 extr Laboratory Data at Discharge: WBC 5.20 thou/uL (4.3-10.9) 05/09/23 02:05 Hgb 8.0 g/dL (12.0-15.0) L D 05/09/23 02:05 Hct 23.8 % (36.0-45.0) L 05/09/23 02:05 Plt Count 97 thou/uL (152-406) L 05/09/23 02:05 PT 12.1 SECONDS (9.5-12.5) 05/03/23 22:03 INR 1.10 05/03/23 22:03 APTT 32.8 SECONDS (24.3-36.9) 05/03/23 22:03 Sodium 129 mEq/L (136-145) L 05/09/23 02:05 Potassium 4.5 mEq/L (3.5-5.1) 05/09/23 02:05 BUN 35 mg/dL (7-18) H 05/09/23 02:05 Creatinine 4.49 mg/dL (0.55-1.02) H 05/09/23 02:05 Glucose 100 mg/dL (74-106) 05/09/23 02:05 Phosphorus 4.7 mg/dL (2.5-4.9) 05/08/23 12:50 Magnesium 2.0 mg/dL (1.6-2.4) 05/08/23 12:50 Total Bilirubin 0.3 mg/dL (0.2-1.0) 05/08/23 12:50 AST 12 U/L (15-37) L 05/08/23 12:50 ALT < 10 U/L (13-56) L 05/08/23 12:50 Alkaline Phosphatase 56 U/L (45-117) 05/08/23 12:50 Home Medications: Docusate Sodium [Stool Softener] 50 mg PO DAILY 06/11/22 Hydroxychloroquine [Plaquenil*] 200 mg PO DAILY 06/11/22 Pantoprazole [Protonix Tab*] 40 mg PO BID 06/11/22 Tramadol HCl [Ultram] 50 mg PO BID PRN 06/11/22 Buspirone HCl 1 tab PO TID 05/02/23 Ferric Citrate [Auryxia] 210 mg PO TID 05/02/23 Fluticasone/Umeclidin/Vilanter [Trelegy Ellipta 100-62.5-25] 1 inh .ROUTE DAILY PRN 05/02/23 Folic Acid/Vit B Complex and C [[place] Tablet] 0.8 mg PO DAILY 05/02/23 Levothyroxine [Synthroid*] 112 mcg PO DAILY 05/02/23 Pregabalin [Lyrica] 25 mg PO BEDTIME 05/02/23 Albuterol Sulfate [Proair Respiclick] 2 puff IH Q4HP PRN 05/04/23 Atenolol [Tenormin] 25 mg PO DAILY 05/04/23 Cyanocobalamin (Vitamin B-12) [Vitamin B12] 1,000 mcg PO DAILY 05/04/23 Docusate Sodium [Stool Softener] 250 mg PO BEDTIME 05/04/23 Gabapentin [Neurontin*] 100 mg PO DAILY 05/04/23 Isosorbide Mononitrate [Isosorbide Mononitrate ER] 60 mg PO DAILY 05/04/23 Melatonin 5 mg PO BEDTIME PRN 05/04/23 Oxybutynin Chloride [Oxybutynin Chloride ER] 5 mg PO TID 05/04/23 glucosamine HCL [Glucosamine HCl] 1,500 mg PO BID 05/04/23 Cefpodoxime Proxetil 200 mg PO DAILY #14 tab 05/10/23 Doxycycline Hyclate 100 mg PO BID #14 cap 05/10/23 Vitamin D [Drisdol*] 50,000 unit PO Q48H #7 cap 05/10/23 metroNIDAZOLE [Metronidazole] 500 mg PO TID #9 tab 05/10/23 New Medications: Cefpodoxime Proxetil 200 mg PO DAILY #14 tab Doxycycline Hyclate 100 mg PO BID #14 cap Vitamin D [Drisdol*] 50,000 unit PO Q48H #7 cap metroNIDAZOLE [Metronidazole] 500 mg PO TID #9 tab Diet: Renal Activity: Fall precautions Followup: Kobe Sargent DO [ACTIVE - CAN ADMIT] - 1-2 Weeks (call for appintment) Krish Salguero MD [ACTIVE - CAN ADMIT] - 1-2 Weeks (call for appointment ) Time spent managing pt's care (in minutes): 38
[2023-05-10 09:16] VITALS: TEMP 98.2
[2023-05-10 13:22] VITALS: O2SAT 99
--- NOTE | 2023-05-10 20:20 | P.PN ---
Date of Service: 05/10/23 Vital Signs Temp Pulse Resp BP Pulse Ox 98.2 F 52 18 127/42 L 97 05/10/23 08:00 05/10/23 08:58 05/10/23 10:06 05/10/23 08:58 05/10/23 10:06 Microbiology Results 05/03/23 22:03 Blood - Blood Aerobic Blood Culture - Final No growth in 5 days. 05/03/23 22:03 Blood - Blood Anaerobic Blood Culture - Final No growth in 5 days. 05/03/23 21:45 Blood - Blood Aerobic Blood Culture - Final No growth in 5 days. 05/03/23 21:45 Blood - Blood Anaerobic Blood Culture - Final No growth in 5 days. 05/04/23 00:02 Catheterized Urine [place] Count - Final >100,000 CFU/ML. 05/04/23 00:02 Catheterized Urine - Final Escherichia Coli Staph Aureus Gram Neg Aurelio Assessment/ Plan: Nephrology No dyspnea No chest pain Constipation improved Left hip pain No acute events overnight Vitals, medications, blood work and imaging reviewed in the chart. NAD. Obese. NCAT. MMM. Neck supple. Normal respiratory effort. RRR. Abd ND. No C/C. LE Edema none. No rash. AAO. Normal speech ESRD on HD -HD TIW Hyponatremia Hyperkalemia -HD TIW HTN with CKD/ CHF -Continue Atenolol Diastolic CHF, chronic -HD with UF Anemia in CKD -Retacrit prn CKD MBD -Continue Ergo Proctitis Acute E.coli & Staph Cystitis -Continue abx Slow Transit Constipation -Continue Miralax & Colace Hospitalist note reviewed Case reviewed with Dr. Amaya
== END 2023-05-10 11:19 | disposition home or self-care (01) | DRG 871 ==
LOC: ER 20:46 → 4TH 05-04 00:05
PROVIDERS: ADMIT Internal Medicine; ATTEND Internal Medicine
PROC: 5A1D70Z Performance of Urinary Filtration, Intermittent, Less than 6 Hours Per Day (ICD-10-PCS; principal; 2023-05-04)
DX: A41.51 Sepsis due to Escherichia coli [E. coli] (principal); N18.6 End stage renal disease; I50.32 Chronic diastolic (congestive) heart failure; I13.2 Hypertensive heart and chronic kidney disease with heart failure and with stage 5 chronic kidney disease, or end stage renal disease; K62.5 Hemorrhage of anus and rectum; E87.1 Hypo-osmolality and hyponatremia; N30.00 Acute cystitis without hematuria; A41.01 Sepsis due to Methicillin susceptible Staphylococcus aureus; R65.20 Severe sepsis without septic shock; D63.1 Anemia in chronic kidney disease; J44.9 Chronic obstructive pulmonary disease, unspecified; E87.5 Hyperkalemia; K59.04 Chronic idiopathic constipation; K59.01 Slow transit constipation; M25.552 Pain in left hip; E03.9 Hypothyroidism, unspecified; K62.89 Other specified diseases of anus and rectum; K21.9 Gastro-esophageal reflux disease without esophagitis; Z99.2 Dependence on renal dialysis; Z88.5 Allergy status to narcotic agent; Z88.1 Allergy status to other antibiotic agents; Z88.8 Allergy status to other drugs, medicaments and biological substances; Z90.49 Acquired absence of other specified parts of digestive tract; Z90.710 Acquired absence of both cervix and uterus; Z79.890 Hormone replacement therapy; Z79.899 Other long term (current) drug therapy; Z20.822 Contact with and (suspected) exposure to COVID-19
CPT/HCPCS: 36415; 51702; 71045; 71250; 74176; 80048; 80053; 81001; 83605; 83735; 84100; 84132; 85025; 85610; 85730; 86706; 87040; 87077; 87086; 87088; 87186; 87340; 87635; 87804; 88305; 90935; 93005; 97161; 97530; 99285; J0690; J0696; J1644; J2001; J2270; J2405; J2704; J2765; J7030; J7040; P9047; Q0169

== ENCOUNTER 2023-05-11 10:33 | Emergency (ER) | payer OTHER ==
--- OUTSIDE RECORDS SUMMARY | 2023-05-11 10:39 | XMS REPORT | Continuity of Care Document ---
:1940 Author Organization [facility] t Address [address] [place] [address] Care Team Providers Name Role Phone Asked, No Pcp Primary Care Physician Unavailable Clarence Navarrete Attending Clinician Unavailable Doctor Unassigned, [place] Attending Clinician Unavailable SAILAJA TAYLOR Attending Clinician Unavailable SAILAJA TAYLOR Attending Clinician Unavailable Sailaja Taylor DO Attending Clinician GORDON DE LA TORRE Attending Clinician Unavailable Padmini Bowman RN Attending Clinician Papo Hernandez DO Attending Clinician Foster Gama MD Attending Clinician FOSTER GAMA Attending Clinician Unavailable Arleen Hill Attending Clinician Mary Vieira MD Attending Clinician [phone] MARY VIEIRA Attending Clinician Unavailabl e SAILAJA TAYLOR Admitting Clinician Unavailable GORDON DE LA TORRE Admitting Clinician Unavailable Foster Gama MD Admitting Clinician FOSTER GAMA Admitting Clinician Unavailable Dariel CESPEDES, Mary Jolly Admitting Clinician MARY VIEIRA Admitting Clinician Unavailabl e Payers Payer Name Policy Type Policy Number Effective Date Expiration Date S cindy MEDICARE PART A [id number] 1987 AND B 00:00:00 MEDICARE PART A [id number] 1987 \T\ B 00:00:00 [employer] [place] [id number] 2021 PLUS CLASSIC/VALUE 00:00:00 Problems Condition Condition [...] Added automatic ally from request for surgery [id number] Hyponatrem Hyponatrem Disease Active U iqra ia ia 1-26 ity of 00:00: [place] 00 Medical Branch Acute-on-c Acute-on-c Disease Active U iqra hronic hronic 1-21 ity of kidney kidney 00:00: [place] injury injury 00 Medical Branch Elevated Elevated Disease Active Unive rs brain brain -09 ity of natriureti natriureti 00:[place] c peptide c peptide 00 [facility] (BNP) (BNP) Branch level level Essential Essential [...] Univers obesity obesity 1-09 ity of 00:00: [place] [address] Medical Branch Anemia Anemia Disease Active Univers 1-09 ity of 00:00: [place] [address] Medical Branch Acute Acute Disease Active Univers renal renal 1-06 ity of failure failure 00:00: [place] [facility] MAGAN (acute MAGAN (acute Disease Active U nivers kidney kidney 1-05 ity of injury) injury) 00:00: [place] [address] Medical Branch Obesity Obesity Disease Active 2015-08 Univers (BMI (BMI 2-28 ity of 30-39.9) 30-39.9) 00:00: [place] [address] Medical Branch Hypertensi Hypertensi Disease Active M [...] [facility] azines 2-10 Clear 00:00: [place] 00 [facility] Thioxant DA Active U 2020-1 [facility] henes 2-10 Clear 00:00: Jiang 00 [facility] prochlor DA Active U 2020-1 [facility] perazine 2-10 Clear 00:00: Jiang 00 [facility] baclofen DA Active U 2020-1 [facility] 2-10 Clear 00:00: Jiang 00 [facility] hydralaz DA Active U 2020-1 [facility] ine 2-10 Clear 00:00: Jiang 00 [facility] ondanset DA Active U 2020-1 [facility] ramona 2-10 Clear 00:00: Jiang 00 [facility] vancomyc DA Active U 2020-1 [facility] in 2-10 Clear 00:00: Jiang 00 [facility] cefepime DA Active U 2020-1 [facility] 2-10 Clear 00:00: Jiang 00 [facility] cefepime DA Active U UNKNOWN 2020-1 [facility] 2-10 Clear 00:00: Jiang 00 [facility] Phenothi DA Active U UNKNOWN 2020-1 [facility] azines 2-10 Clear 00:00: Jiang 00 [facility] Thioxant DA Active U UNKNOWN 2020-1 [facility] henes 2-10 Clear 00:00: Jiang 00 [facility] prochlor DA Active U UNKNOWN 2020-1 [facility] perazine 2-10 Clear 00:00: Jiang 00 [facility] baclofen DA Active U UNKNOWN 2020-1 [facility] 2-10 Clear 00:00: [place] 00 [facility] hydralaz DA Active U UNKNOWN 2020-1 [facility] ine 2-10 Clear 00:00: [place] 00 [facility] ondanset DA Active U UNKNOWN 2020-1 [facility] ramona 2-10 Clear 00:00: Jiang 00 [facility] vancomyc DA Active U UNKNOWN 2020-1 [facility] in 2-10 Clear 00:00: [place] 00 [facility] Baclofen Propensi Active Unknown - 2016- [...] of adverse 00:00: [place] reaction 00 [facility] Thioxant Propensi Active Unknown - 2015-08 Uni vers henes ty to See comments 2-27 ity of adverse 00:00: [place] reaction 00 Medical [facility] BACLOFEN DRUG Active Unknown-Cmnt 2015-08 Un [facility] INGREDI 2-27 ity of 00:00: [place] 00 Medical Branch CEFEPIME DRUG Active Unknown-Cmnt 2015-08 [facility] [place] INGREDI 2-27 ity of 00:00: [place] 00 Medical Branch PHENOTHI Drug Active Unknown-Cmnt 2015-08 [facility] AZINES Class 2-27 ity of 00:00: [place] 00 [facility] PROCHLOR DRUG Active Unknown-Cmnt 2015-08 [facility] PERAZINE INGREDI 2-27 ity of 00:00: [place] 00 Medical [place] THIOXANT Drug Active Unknown-Cmnt 2015-08 [facility] HENES Class 2-27 ity of 00:00: [place] 00 Medical Branch Phenothi Propensi Active Unknown - 2015-08 Uni vers azines ty to See comments 2-27 ity of adverse 00:00: [place] reaction 00 [facility] iodine DA Active U 2009-0 [facility] 6-15 Clear 00:00: [place] 00 [facility] prochlor DA Active U 2009-0 [facility] perazine 6-15 Clear 00:00: [place] 00 [facility] ciproflo DA Active U 2009-0 [facility] xacin 6-15 Clear 00:00: [place] 00 [facility] Not DA Active U 2009-0 [facility] Converte 6-15 Clear d 80. 00:00: Jiang See 00 [facility] Social History Social Habit Start Date Stop Date Quantity Comments Source History SDOH [facility] History SDOH [facility] Sexual orientation [facility] Exposure to 2022-10-09 2022-10-19 Not sure University of SARS-CoV-2 (event) 00:00:00 11:28:00 [facility] History of Social 2022-10-10 2022-10-[address] function 00:00:00 00:00:00 Hospital Tobacco use and 2022-03-02 2022-03-02 Smokeless Universit y of exposure 00:00:00 00:00:00 tobacco [facility]-user [facility] [place] Alcohol intake 2021-02-25 2021-02-25 [facility] 00:00:00 00:00:00 non-drinker Hospital (finding) History SDMO 2021-02-22 2021-02-22 1 [facility] Frequency 00:00:00 00:00:00 Hospita l History SDOH 2020-08-11 2020-08-11 5 University o f Financial 00:00:00 00:00:00 [place] [facility] History SDOH Food 2020-08-11 2020-08-11 1 Univers ity of Worry 00:00:00 00:00:00 [place] [facility] History SDOH Food 2020-08-11 2020-08-11 1 Univers ity of Scarcity 00:00:00 00:00:00 [place] [facility] History SDMO 2020-08-11 2020-08-11 2 University o f Transport Med 00:00:00 00:00:00 [place] [facility] al Branch History SDMO 2020-08-11 2020-08-11 2 University o f Transport Non-Med 00:00:00 00:00:00 [facility] Sex [birth year] At [birth year] [facility] 00:00:00 00:00:00 Hospital Smoking Status Start Date Stop Date Source Never smoked tobacco [facility] Medications Ordered Filled Start Stop Current Ordering Indication Dosage Frequency Signature Comments Components Source Medication Medication Date Date Medication? Clinician (SIG) Name Name azelastine Yes [id number] 1{spray Use 1 Univers 137 mcg 3-16 } [place] in ity of (0.1 %) 00:00: each [place] [facility] [place] [facility] and 1 [place] in the evening. Use in each nostril as directed azelastine Yes [id number] 1{spray Use 1 Univers 137 mcg 3-16 } [place] in ity of (0.1 %) 00:00: each [place] nasal [facility] and 1 [place] in the evening. Use in each nostril as directed azelastine Yes [id number] 1{spray Use 1 Univers 137 mcg 3-16 } [place] in ity of (0.1 %) 00:00: each [place] nasal spray 00 nostril in [place] [facility] the Branch morning and 1 [place] in the evening. Use in each nostril [...] by mouth ity of tablet 11:07: daily. [address] dextrometho 2021-08 Yes 1{tbl} Take 1 Un [facility] rphan-guaif 2-29 tablet by ity of enesin 11:07: mouth 2 [place] 30-600 mg 15 (two) Medical per tablet times Branch daily. isosorbide 2021-08 Yes 60mg Take 60 mg U nivers mononitrate 2-29 by mouth ity of 60 mg 24 hr 11:07: [place] 15 [facility] ondansetron 2021-08 Yes 4mg Take 4 mg U nivers 4 mg tablet 2-29 by mouth ity of 11:07: every 8 [place] 15 (eight) Medical hours as Branch needed. pantoprazol 2021-08 Yes 40mg Take 40 mg Univers e 40 mg EC 2-29 by mouth ity o f tablet 11:07: daily. [address] oxybutynin 2021-08 Yes 5mg Take 5 [...] by mouth ity of tablet 11:07: daily. [address] dextrometho 2021-08 Yes 1{tbl} Take 1 [...] mouth ity o f tablet 11:07: daily. [address] Branch oxybutynin 2021-08 Yes 5mg Take [...] by mouth ity of tablet 11:07: daily. [address] Branch dextrometho 2021-08 Yes 1{tbl} Take [...] mouth ity o f tablet 11:07: daily. [address] Branch oxybutynin 2021-08 Yes 5mg Take [...] by mouth ity of tablet 11:07: daily. [address] Branch dextrometho 2021-08 Yes 1{tbl} Take [...] mouth ity o f tablet 11:07: daily. [address] Branch oxybutynin 2021-08 Yes 5mg Take [...] by mouth ity of tablet 11:07: daily. [place] 15 Medical Branch dextrometho 2021-08 Yes 1{tbl} [...] by mouth ity of 11:07: every 8 [place] 15 (eight) Medical hours as Branch needed. pantoprazol 2021-08 Yes 40mg Take 40 mg Univers e 40 mg EC 2-29 by mouth ity o f tablet 11:07: daily. [address] Branch oxybutynin 2021-08 Yes 5mg Take 5 mg Un ro[place] chloride 5 2-29 by mouth 3 ity of mg tablet 11:07: (three) [place] 15 times Medical daily. Branch levothyroxi 2021-08 Yes 112ug Take 112 U nivers ne 112 mcg 2-29 mcg by ity of tablet 11:07: mouth [place] 15 every Medical morning. Branch busPIRone 2021-08 Yes 10mg Take 10 mg Un [place] 10 mg 2-29 by mouth ity of tablet 11:07: daily. [address] Branch dextrometho 2021-08 Yes 1{tbl} Take [...] by mouth ity of 11:07: every 8 [place] 15 (eight) Medical hours as Branch needed. pantoprazol 2021-08 Yes 40mg Take 40 mg Univers e 40 mg EC 2-29 by mouth ity o f tablet 11:07: daily. [address] Branch fluticasone 2021-08 Yes [id number] 1{puff} Inhale 1 Univers -umeclidin- 0-27 Puff ity of vilanter 00:00: daily. [place] (TRELEGY 00 Medical ELLIPTA) Branch 100-62.5-25 mcg DsDv fluticasone 2021-08 Yes [id number] 1{puff} Inhale 1 Univers -umeclidin- 0-27 Puff ity of vilanter 00:00: daily. [place] [facility] ELL[facility]) Branch 100-62.5-25 mcg DsDv fluticasone 2021-08 Yes [id number] 1{puff} Inhale 1 Univers -umeclidin- 0-27 Puff ity of vilanter 00:00: daily. [place] [facility] Medical ELLIPTA) Branch 100-62.5-25 mcg DsDv fluticasone 2021-08 Yes [id number] 1{puff} Inhale 1 Univers -umeclidin- 0-27 Puff ity of vilanter 00:00: daily. [place] ([facility] Medical ELLIPTA) Branch 100-62.5-25 mcg DsDv fluticasone 2021-08 Yes [id number] 1{puff} Inhale 1 Univers -umeclidin- 0-27 Puff ity of vilanter 00:00: daily. [place] ([facility] Medical ELLIPTA) Branch 100-62.5-25 mcg DsDv fluticasone 2021-08 Yes [id number] 1{puff} Inhale 1 Univers -umeclidin- 0-27 Puff ity of vilanter 00:00: daily. [place] ([facility] Medical ELLIPTA) Branch 100-62.5-25 mcg DsDv fluticasone 2021-08 Yes [id number] 1{puff} Inhale 1 Univers -umeclidin- 0-27 Puff ity of vilanter 00:00: daily. [place] ([facility] Medical ELLIPTA) Branch 100-62.5-25 mcg DsDv fluticasone 2021-08 Yes [id number] 1{puff} Inhale 1 Univers -umeclidin- 0-27 Puff ity of vilanter 00:00: daily. [place] ([facility] Medical ELLIPTA) Branch 100-62.5-25 mcg DsDv fluticasone 2021-08 Yes [id number] 1{puff} Inhale 1 Univers -umeclidin- 0-27 Puff ity of vilanter 00:00: daily. [place] (TRELEGY 00 Medical ELLIPTA) Branch 100-62.5-25 mcg DsDv fluticasone 2021-08 Yes [id number] 1{puff} Inhale 1 Univers -umeclidin- 0-27 Puff ity of vilanter 00:00: daily. [place] (TRELEGY 00 Medical ELLIPTA) Branch 100-62.5-25 mcg DsDv albuterol 2021-08 Yes [id number] 2.5mg Inhale 3 Univers 2.5 mg /3 0-14 mL every 4 ity of mL (0.083 00:00: (four) [place] %) 00 hours as Medical nebulizer needed for Bran ch solution Wheezing or Shortness of Breath. albuterol 2021-08 Yes [id number] 2{puff} Inhale 2 Univers 90 0-14 Puffs ity of mcg/actuati 00:00: every 4 [place] on inhaler 00 (four) Medical hours as Branch needed for Wheezing or Shortness of Breath. albuterol 2021-08 Yes [id number] 2.5mg Inhale 3 Univers 2.5 mg /3 0-14 mL every 4 ity of mL (0.083 00:00: (four) [place] %) 00 hours as Medical nebulizer needed for Bran ch solution Wheezing or Shortness of Breath. albuterol 2021-08 Yes [id number] 2{puff} Inhale 2 Univers 90 0-14 Puffs ity of mcg/actuati 00:00: every 4 [place] on inhaler 00 (four) Medical hours as Branch needed for Wheezing or Shortness of Breath. albuterol 2021-08 Yes [id number] 2.5mg Inhale 3 Univers 2.5 mg /3 0-14 mL every 4 ity of mL (0.083 00:00: (four) [place] %) 00 hours as Medical nebulizer needed for Bran ch solution Wheezing or Shortness of Breath. albuterol 2021-08 Yes [id number] 2{puff} Inhale 2 Univers 90 0-14 Puffs ity of mcg/actuati 00:00: every 4 [place] on inhaler 00 (four) Medical hours as Branch needed for Wheezing or Shortness of Breath. albuterol 2021-08 Yes [id number] 2.5mg Inhale 3 Univers 2.5 mg /3 0-14 mL every 4 ity of mL (0.083 00:00: (four) [place] %) 00 hours as Medical nebulizer needed for Bran ch solution Wheezing or Shortness of Breath. albuterol 2021-08 Yes [id number] 2{puff} Inhale 2 Univers 90 0-14 Puffs ity of mcg/actuati 00:00: every 4 [place] on inhaler 00 (four) Medical hours as Branch needed for Wheezing or Shortness of Breath. albuterol 2021-08 Yes [id number] 2.5mg Inhale 3 Univers 2.5 mg /3 0-14 mL every 4 ity of mL (0.083 00:00: (four) [place] %) 00 hours as Medical nebulizer needed for Bran ch solution Wheezing or Shortness of Breath. albuterol 2021-08 Yes [id number] 2{puff} Inhale 2 Univers 90 0-14 Puffs ity of mcg/actuati 00:00: every 4 [place] on inhaler 00 (four) Medical hours as Branch needed for Wheezing or Shortness of Breath. albuterol 2021-08 Yes [id number] 2.5mg Inhale 3 Univers 2.5 mg /3 0-14 mL every 4 ity of mL (0.083 00:00: (four) [place] %) 00 hours as Medical nebulizer needed for Bran ch solution Wheezing or Shortness of Breath. albuterol 2021-08 Yes [id number] 2{puff} Inhale 2 Univers 90 0-14 Puffs ity of mcg/actuati 00:00: every 4 [place] on inhaler 00 (four) Medical hours as Branch needed for Wheezing or Shortness of Breath. albuterol 2021-08 Yes [id number] 2.5mg Inhale 3 Univers 2.5 mg /3 0-14 mL every 4 ity of mL (0.083 00:00: (four) [place] %) 00 hours as Medical nebulizer needed for Bran ch solution Wheezing or Shortness of Breath. albuterol 2021-08 Yes [id number] 2{puff} Inhale 2 Univers 90 0-14 Puffs ity of mcg/actuati 00:00: every 4 [place] on inhaler 00 (four) Medical hours as Branch needed for Wheezing or Shortness of Breath. albuterol 2021-08 Yes [id number] 2.5mg Inhale 3 Univers 2.5 mg /3 0-14 mL every 4 ity of mL (0.083 00:00: (four) [place] %) 00 hours as Medical nebulizer needed for Bran ch solution Wheezing or Shortness of Breath. albuterol 2021-08 Yes [id number] 2{puff} Inhale 2 Univers 90 0-14 Puffs ity of mcg/actuati 00:00: every 4 [place] on inhaler 00 (four) Medical hours as Branch needed for Wheezing or Shortness of Breath. albuterol 2021-08 Yes [id number] 2.5mg Inhale 3 Univers 2.5 mg /3 0-14 mL every 4 ity of mL (0.083 00:00: (four) [place] %) 00 hours as Medical nebulizer needed for Bran ch solution Wheezing or Shortness of Breath. albuterol 2021-08 Yes [id number] 2{puff} Inhale 2 Univers 90 0-14 Puffs ity of mcg/actuati 00:00: every 4 [place] on inhaler 00 (four) Medical hours as Branch needed for Wheezing or Shortness of Breath. albuterol 2021-08 Yes [id number] 2.5mg Inhale 3 Univers 2.5 mg /3 0-14 mL every 4 ity of mL (0.083 00:00: (four) [place] %) 00 hours as Medical nebulizer needed for Bran ch solution Wheezing or Shortness of Breath. albuterol 2021-08 Yes [id number] 2{puff} Inhale 2 Univers 90 0-14 Puffs ity of mcg/actuati 00:00: every 4 [place] on inhaler 00 (four) Medical hours as Branch needed for Wheezing or Shortness of Breath. albuterol 2021-08 Yes [id number] 2.5mg Inhale 3 Univers 2.5 mg /3 0-14 mL every 4 ity of mL (0.083 00:00: (four) [place] %) 00 hours as Medical nebulizer needed for Bran ch solution Wheezing or Shortness of Breath. albuterol 2021-08 Yes [id number] 2{puff} Inhale 2 Univers 90 0-14 Puffs ity of mcg/actuati 00:00: every 4 [place] on inhaler 00 (four) Medical hours as Branch needed for Wheezing or Shortness of Breath. predniSONE Yes [id number] 40mg Take 2 U nivers 20 mg 9-09 tablets by ity of tablet 00:00: mouth in [place] 00 the Medical morning. Branch doxycycline Yes [id number] 100mg Take 1 Univers 100 mg EC 9-09 tablet by ity o f tablet 00:00: mouth in [place] 00 the Medical morning Branch and 1 tablet in the evening. predniSONE 2022-0 Yes [id number] 40mg Take 2 U nivers 20 mg 9-09 tablets by ity of tablet 00:00: mouth in [place] the Medical morning. Branch doxycycline 2022-0 Yes [id number] 100mg Take 1 Univers 100 mg EC 9-09 tablet by ity o f tablet 00:00: mouth in [place] 00 the Medical morning Branch and 1 tablet in the evening. predniSONE 2022-0 Yes [id number] 40mg Take 2 U nivers 20 mg 9-09 tablets by ity of tablet 00:00: mouth in [place] the Medical morning. Branch doxycycline 2022-0 Yes [id number] 100mg Take 1 Univers 100 mg EC 9-09 tablet by ity o f tablet 00:00: mouth in [place] the Medical morning Branch and 1 tablet in the evening. predniSONE 2022-0 Yes [id number] 40mg Take 2 U nivers 20 mg 9-09 tablets by ity of tablet 00:00: mouth in [place] the Medical morning. Branch doxycycline 2022-0 Yes [id number] 100mg Take 1 Univers 100 mg EC 9-09 tablet by ity o f tablet 00:00: mouth in [place] the Medical morning Branch and 1 tablet in the evening. predniSONE 2022-0 Yes [id number] 40mg Take 2 U nivers 20 mg 9-09 tablets by ity of tablet 00:00: mouth in [place] the Medical morning. Branch doxycycline 2022-0 Yes [id number] 100mg Take 1 Univers 100 mg EC 9-09 tablet by ity o f tablet 00:00: mouth in [place] 00 the Medical morning Branch and 1 tablet in the evening. predniSONE 2022-0 Yes [id number] 40mg Take 2 U nivers 20 mg 9-09 tablets by ity of tablet 00:00: mouth in [place] the Medical morning. Branch doxycycline 2022-0 Yes [id number] 100mg Take 1 Univers 100 mg EC 9-09 tablet by ity o f tablet 00:00: mouth in [place] 00 the Medical morning Branch and 1 tablet in the evening. predniSONE 2022-0 Yes [id number] 40mg Take 2 U nivers 20 mg 9-09 tablets by ity of tablet 00:00: mouth in [place] the Medical morning. Branch doxycycline 2022-0 Yes [id number] 100mg Take 1 Univers 100 mg EC 9-09 tablet by ity o f tablet 00:00: mouth in [place] the Medical morning Branch and 1 tablet in the evening. predniSONE 2022-0 Yes [id number] 40mg Take 2 U nivers 20 mg 9-09 tablets by ity of tablet 00:00: mouth in [place] the Medical morning. Branch doxycycline 2022-0 Yes [id number] 100mg Take 1 Univers 100 mg EC 9-09 tablet by ity o f tablet 00:00: mouth in [place] the Medical morning Branch and 1 tablet in the evening. predniSONE 2022-0 Yes [id number] 40mg Take 2 U nivers 20 mg 9-09 tablets by ity of tablet 00:00: mouth in [place] the Medical morning. Branch doxycycline 2022-0 Yes [id number] 100mg Take 1 Univers 100 mg EC 9-09 tablet by ity o f tablet 00:00: mouth in [place] the Medical morning Branch and 1 tablet in the evening. predniSONE 2022-0 Yes [id number] 40mg Take 2 U nivers 20 mg 9-09 tablets by ity of tablet 00:00: mouth in [place] the Medical morning. Branch doxycycline 2022-0 Yes [id number] 100mg Take 1 Univers 100 mg EC 9-09 tablet by ity o f tablet 00:00: mouth in [place] the Medical morning Branch and 1 tablet in the evening. predniSONE 2022-0 Yes [id number] 40mg Take 2 U nivers 20 mg 9-09 tablets by ity of tablet 00:00: mouth in [place] the Medical morning. Branch doxycycline 2022-0 Yes [id number] 100mg Take 1 Univers 100 mg EC 9-09 tablet by ity o f tablet 00:00: mouth in [place] the Medical morning Branch and 1 tablet in the evening. predniSONE 2022-0 Yes [id number] 40mg Take 2 U nivers 20 mg 9-09 tablets by ity of tablet 00:00: mouth in [place] the Medical morning. Branch doxycycline 2022-0 Yes [id number] 100mg Take 1 Univers 100 mg EC 9-09 tablet by ity o f tablet 00:00: mouth in [place] the Medical morning Branch and 1 tablet in the evening. oxybutynin 2022-0 Yes 5mg Take 5 mg Un ro[place] chloride 5 7-28 by mouth 3 ity of mg tablet 09:03: (three) [place] [address] times Medical daily. Branch levothyroxi 2021-0 Yes 112ug Take 112 U nivers ne 112 mcg 7-28 mcg by ity of tablet 09:03: mouth [place] [address] every Medical morning. Branch busPIRone 2021-0 Yes 10mg Take 10 mg Un [place] 10 mg 7-28 by mouth ity of tablet 09:03: daily. [address] Branch dextrometho 0 Yes 1{tbl} Take 1 Un [place] rphan-guaif 7-28 tablet by ity of enesin 09:03: mouth 2 [place] 30-600 mg 11 (two) Medical per tablet times Branch daily. isosorbide 2021-0 Yes 60mg Take 60 mg U nivers mononitrate 7-28 by mouth ity of 60 mg 24 hr 09:03[place] [address] Branch ondansetron 2021-0 Yes 4mg Take 4 mg U nivers 4 mg tablet 7-28 by mouth ity of 09:03: every 8 [place] [address] (eight) Medical hours as Branch needed. pantoprazol 2021-0 Yes 40mg Take 40 mg Univers e 40 mg EC 7-28 by mouth ity o f tablet 09:03: daily. [address] Branch oxybutynin 2021-0 Yes 5mg Take 5 mg Un [place] chloride 5 7-28 by mouth 3 ity of mg tablet 09:03: (three) [place] [address] times Medical daily. Branch levothyroxi 2021-0 Yes 112ug Take 112 U nivers ne 112 mcg 7-28 mcg by ity of tablet 09:03: mouth [place] [address] every Medical morning. Branch busPIRone 2021-0 Yes 10mg Take 10 mg Un [place] 10 mg 7-28 by mouth ity of tablet 09:03: daily. [address] Branch dextrometho 0 Yes 1{tbl} Take [...] ity of 09:03: every 8 [place] [address] (eight) Medical hours as Branch needed. pantoprazol 2-0 Yes 40mg Take 40 mg Univers e 40 mg EC 7-28 by mouth ity o f tablet 09:03: daily. [address] Branch oxybutynin 2-0 Yes 5mg Take 5 mg Un [place] chloride 5 7-28 by mouth 3 ity of mg tablet 09:03: (three) [place] [address] times Medical daily. Branch levothyroxi 2021-0 Yes 112ug Take 112 U nivers ne 112 mcg 7-28 mcg by ity of tablet 09:03: mouth [place] [address] every Medical morning. Branch busPIRone 2021-0 Yes 10mg Take 10 mg Un [place] 10 mg 7-28 by mouth ity of tablet 09:03: daily. [address] Branch dextrometho 2021-0 Yes 1{tbl} Take [...] ity of 09:03: every 8 [place] [address] (eight) Medical hours as Branch needed. pantoprazol 2-0 Yes 40mg Take 40 mg Univers e 40 mg EC 7-28 by mouth ity o f tablet 09:03: daily. [address] Branch oxybutynin 2-0 Yes 5mg Take 5 mg Un [place] chloride 5 7-28 by mouth 3 ity of mg tablet 09:03: (three) [place] [address] times Medical daily. Branch levothyroxi 2-0 Yes 112ug Take 112 U nivers ne 112 mcg 7-28 mcg by ity of tablet 09:03: mouth [place] [address] every Medical morning. Branch busPIRone 2022-0 Yes 10mg Take 10 mg Un [place] 10 mg 7-28 by mouth ity of tablet 09:03: daily. [address] Branch dextrometho 2021-0 Yes 1{tbl} Take [...] ity of 09:03: every 8 [place] [address] (eight) Medical hours as Branch needed. pantoprazol 2021-0 Yes 40mg Take 40 mg Univers e 40 mg EC 7-28 by mouth ity o f tablet 09:03: daily. [address] Branch oxybutynin 2021-0 Yes 5mg Take 5 mg Un [place] chloride 5 7-28 by mouth 3 ity of mg tablet 09:03: (three) [place] [address] times Medical daily. Branch levothyroxi 2021-0 Yes 112ug Take 112 U nivers ne 112 mcg 7-28 mcg by ity of tablet 09:03: mouth [place] [address] every Medical morning. Branch busPIRone 2021-0 Yes 10mg Take 10 mg Un [place] 10 mg 7-28 by mouth ity of tablet 09:03: daily. [address] Branch dextrometho 2021-0 Yes 1{tbl} Take [...] ity of 09:03: every 8 [place] [address] (eight) Medical hours as Branch needed. pantoprazol 2-0 Yes 40mg Take 40 mg [facility] e 40 mg EC 7-28 by mouth ity o f tablet 09:03: daily. [address] Branch oxybutynin 2021-0 Yes 5mg Take 5 mg Un [facility] chloride 5 7-28 by mouth 3 ity of mg tablet 09:03: (three) [place] [address] times Medical daily. Branch levothyroxi 2021-0 Yes 112ug Take 112 U nivers ne 112 mcg 7-28 mcg by ity of tablet 09:03: mouth [place] [address] every Medical morning. Branch busPIRone 2021-0 Yes 10mg Take 10 mg [facility] 10 mg 7-28 by mouth ity of tablet 09:03: daily. [address] Branch dextrometho 2021-0 Yes 1{tbl} Take 1 [facility] rphan-guaif 7-28 tablet by ity of enesin 09:03: mouth 2 [place] 30-600 mg 11 (two) Medical per tablet times Branch daily. isosorbide 2021-0 Yes 60mg Take 60 mg U nivers mononitrate 7-28 by mouth ity of 60 mg 24 hr 09:03: [place]. [place] tablet [address] [place] [address] Branch ondansetron 2021-0 Yes 4mg Take 4 mg U nivers 4 mg tablet 7-28 by mouth ity of 09:03: every 8 [place] [address] (eight) Medical hours as Branch needed. pantoprazol 2021-0 Yes 40mg Take 40 mg [facility] e 40 mg EC 7-28 by mouth ity o f tablet 09:03: daily. [address] Branch oxybutynin 2021-0 Yes 5mg Take 5 mg [facility] chloride 5 7-28 by mouth 3 ity of mg tablet 09:03: (three) [place] [address] times Medical daily. Branch levothyroxi 2021-0 Yes 112ug Take 112 U nivers ne 112 mcg 7-28 mcg by ity of tablet 09:03: mouth [place] [address] every Medical morning. Branch busPIRone 2-0 Yes 10mg Take 10 mg [facility] 10 mg 7-28 by mouth ity of tablet 09:03: daily. [address] Branch dextrometho 2021-0 Yes 1{tbl} Take [...] ity of 09:03: every 8 [place] [address] (eight) Medical hours as Branch needed. pantoprazol 2-0 Yes 40mg Take 40 mg [facility] e 40 mg EC 7-28 by mouth ity o f tablet 09:03: daily. [address] Branch oxybutynin 2021-0 Yes 5mg Take 5 mg [facility] chloride 5 7-28 by mouth 3 ity of mg tablet 09:03: (three) [place] [address] times Medical daily. Branch levothyroxi 2021-0 Yes 112ug Take 112 U nivers ne 112 mcg 7-28 mcg by ity of tablet 09:03: mouth [place] [address] every Medical morning. Branch busPIRone 2021-0 Yes 10mg Take 10 mg [facility] 10 mg 7-28 by mouth ity of tablet 09:03: daily. [address] Branch dextrometho 2021-0 Yes 1{tbl} Take [...] ity of 09:03: every 8 [place] [address] (eight) Medical hours as Branch needed. pantoprazol 2-0 Yes 40mg Take 40 mg [facility] e 40 mg EC 7-28 by mouth ity o f tablet 09:03: daily. [address] Branch oxybutynin 2-0 Yes 5mg Take 5 mg [facility] chloride 5 7-28 by mouth 3 ity of mg tablet 09:03: (three) [place] [address] times Medical daily. Branch levothyroxi 2-0 Yes 112ug Take 112 U nivers ne 112 mcg 7-28 mcg by ity of tablet 09:03: mouth [place] [address] every Medical morning. Branch busPIRone 0 Yes 10mg Take 10 mg [facility] 10 mg 7-28 by mouth ity of tablet 09:03: daily. [address] Branch dextrometho 0 Yes 1{tbl} Take 1 [facility] rphan-guaif 7-28 tablet by ity of enesin 09:03: mouth 2 [place] 30-600 mg 11 (two) Medical per tablet times Branch daily. isosorbide 2021-0 Yes 60mg Take 60 mg U nivers mononitrate 7-28 by mouth ity of 60 mg 24 hr 09:03: daily. [place] tablet [address] [place] [address] Branch ondansetron 0 Yes 4mg Take 4 mg U nivers 4 mg tablet 7-28 by mouth ity of 09:03: every 8 [place] [address] (eight) Medical hours as Branch needed. pantoprazol 0 Yes 40mg Take 40 mg [facility] e 40 mg EC 7-28 by mouth ity o f tablet 09:03: daily. [address] oxybutynin 0 Yes 5mg Take 5 mg [facility] chloride 5 7-28 by mouth 3 ity of mg tablet 09:03: (three) [place] [address] times [facility] daily. Branch levothyroxi 0 Yes 112ug Take 112 U nivers ne 112 mcg 7-28 mcg by ity of tablet 09:03: mouth [place] [address] every Medical morning. Branch busPIRone 0 Yes 10mg Take 10 mg [facility] 10 mg 7-28 by mouth ity of tablet 09:03: daily. [address] Branch dextrometho Yes 1{tbl} Take 1 [facility] rphan-guaif 7-28 tablet by ity of enesin 09:03: mouth 2 [place] 30-600 mg 11 (two) Medical per tablet times Branch daily. isosorbide 2021-0 Yes 60mg Take 60 mg U nivers mononitrate 7-28 by mouth ity of 60 mg 24 hr 09:03: daily. [place] tablet [address] [place] [address] Branch ondansetron 2021-0 Yes 4mg Take 4 mg U nivers 4 mg tablet 7-28 by mouth ity of 09:03: every 8 [place] [address] (eight) Medical hours as Branch needed. pantoprazol 2021-0 Yes 40mg Take 40 mg [facility] e 40 mg EC 7-28 by mouth ity o f tablet 09:03: daily. [address] Branch oxybutynin 2021-0 Yes 5mg Take 5 mg [facility] chloride 5 7-28 by mouth 3 ity of mg tablet 09:03: (three) [place] [address] times Medical daily. Branch levothyroxi 2021-0 Yes 112ug Take 112 U nivers ne 112 mcg 7-28 mcg by ity of tablet 09:03: mouth [place] [address] every Medical morning. Branch busPIRone 2021-0 Yes 10mg Take 10 mg [facility] 10 mg 7-28 by mouth ity of tablet 09:03: daily. [address] Branch dextrometho 2021-0 Yes 1{tbl} Take 1 [facility] rphan-guaif 7-28 tablet by ity of enesin 09:03: mouth 2 [place] 30-600 [facility] (two) Medical per tablet times Branch daily. isosorbide 2021-0 Yes 60mg Take 60 mg U nivers mononitrate 7-28 by mouth ity of 60 mg 24 hr 09:03: [place] [address] Branch ondansetron 2021-0 Yes 4mg Take 4 mg U nivers 4 mg tablet 7-28 by mouth ity of 09:03: every 8 [place] [address] (eight) Medical hours as Branch needed. pantoprazol 2021-0 Yes 40mg Take 40 mg [facility] e 40 mg EC 7-28 by mouth ity o f tablet 09:03: daily. [address] Branch oxybutynin 2021-0 Yes 5mg Take 5 mg [facility] chloride 5 7-28 by mouth 3 ity of mg tablet 09:03: (three) [place] [address] times Medical daily. Branch levothyroxi 2021-0 Yes 112ug Take 112 U nivers ne 112 mcg 7-28 mcg by ity of tablet 09:03: mouth [place] every Medical morning. Branch busPIRone 2021-0 Yes 10mg Take 10 mg [facility] 10 mg 7-28 by mouth ity of tablet 09:03: daily. [address] Branch dextrometho 2021-0 Yes 1{tbl} Take [...] o f tablet 09:03: daily. [place] [address] Medical Branch amoxicillin 2021-0 Yes [id number] 875mg Take 1 Univers 875 mg 7-28 tablet by ity of tablet 00:00: mouth in [place] [address] the Medical morning [place] and 1 tablet in the evening. amoxicillin 2021-0 Yes [id number] 875mg Take 1 [facility] 875 mg 7-28 tablet by ity of tablet 00:00: mouth in [place] [address] the Medical morning Branch and 1 tablet in the evening. amoxicillin 202-0 Yes [id number] 875mg Take 1 [facility] 875 mg 7-28 tablet by ity of tablet 00:00: mouth in [place] [address] the Medical morning Branch and 1 tablet in the evening. amoxicillin 2021-0 Yes [id number] 875mg Take 1 [facility] 875 mg 7-28 tablet by ity of tablet 00:00: mouth in [place] [address] the [facility] morning [place] and 1 tablet in the evening. amoxicillin 2022-0 Yes [id number] 875mg Take 1 [facility] 875 mg 7-28 tablet by ity of tablet 00:00: mouth in [place] [address] the Medical morning [place] and 1 tablet in the evening. amoxicillin 2022-0 Yes [id number] 875mg Take 1 [facility] 875 mg 7-28 tablet by ity of tablet 00:00: mouth in [place] [address] the [facility] morning [place] and 1 tablet in the evening. amoxicillin 2022-0 Yes [id number] 875mg Take 1 Univers 875 mg 7-28 tablet by ity of tablet 00:00: mouth in [place] [address] the [facility] morning [place] and 1 tablet in the evening. amoxicillin 2022-0 Yes [id number] 875mg Take 1 Univers 875 mg 7-28 tablet by ity of tablet 00:00: mouth in [place] [address] the Medical morning Branch and 1 tablet in the evening. amoxicillin 2022-0 Yes [id number] 875mg Take 1 [facility] 875 mg 7-28 tablet by ity of tablet 00:00: mouth in [place] [address] the Medical morning Branch and 1 tablet in the evening. amoxicillin 2-0 Yes [id number] 875mg Take 1 [facility] 875 mg 7-28 tablet by ity of tablet 00:00: mouth in [place] [address] the Medical morning Branch and 1 tablet in the evening. amoxicillin 2-0 Yes [id number] 875mg Take 1 [facility] 875 mg 7-28 tablet by ity of tablet 00:00: mouth in [place] [address] the Medical morning Branch and 1 tablet in the evening. amoxicillin 2021-0 Yes [id number] 875mg Take 1 [facility] 875 mg 7-28 tablet by ity of tablet 00:00: mouth in [place] [address] the Medical morning Branch and 1 tablet in the evening. amoxicillin 2021-0 Yes [id number] 875mg Take 1 [facility] 875 mg 7-28 tablet by ity of tablet 00:00: mouth in [place] [address] the Medical morning Branch and 1 tablet in the evening. amoxicillin 2021-0 Yes [id number] 875mg Take 1 [facility] 875 mg 7-28 tablet by ity of tablet 00:00: mouth in [place] [address] the Medical morning Branch and 1 tablet in the evening. amoxicillin 2021-0 Yes [id number] 875mg Take 1 [facility] 875 mg 7-28 tablet by ity of tablet 00:00: mouth in [place] [address] the Medical morning Branch and 1 tablet in the evening. amoxicillin 2021-0 Yes [id number] 875mg Take 1 [facility] 875 mg 7-28 tablet by ity of tablet 00:00: mouth in [place] [address] the Medical morning Branch and 1 tablet in the evening. Nebulizer & 2021-0 Yes [id number] Use as Univers Compressor 2-08 directed ity o f For Neb 00:00: [place] 00 [facility] Nebulizer & 2021-0 Yes [id number] Use as Univers Compressor 2-08 directed ity o f For Neb 00:00: [place] [facility] Nebulizer & 2021-0 Yes [id number] Use as Univers Compressor 2-08 directed ity o f For Neb 00:00: Medical Branch Nebulizer & 2021-0 Yes [id number] Use as Univers Compressor 2-08 directed ity o f For Neb 00:00: Medical Branch Nebulizer & 2021-0 Yes [id number] Use as Univers Compressor 2-08 directed ity o f For Neb 00:00: Medical Branch albuterol 2021-0 Yes [id number] 2.5mg Inhale 3 Univers 2.5 mg /3 2-08 mL every 4 ity of mL (0.083 00:00: (four) [place] %) 00 hours as Medical nebulizer needed for Bran ch solution Wheezing or Shortness of Breath. albuterol 2021-0 Yes [id number] 2{puff} Inhale 2 Univers 90 2-08 Puffs ity of mcg/actuati 00:00: every 4 [place] on inhaler 00 (four) Medical hours as Branch needed for Wheezing or Shortness of Breath. Nebulizer & 2021-0 Yes [id number] Use as Univers Compressor 2-08 directed ity o f For Neb 00:00: Medical Branch albuterol 2021-0 Yes [id number] 2.5mg Inhale 3 Univers 2.5 mg /3 2-08 mL every 4 ity of mL (0.083 00:00: (four) [place] %) 00 hours as Medical nebulizer needed for Bran ch solution Wheezing or Shortness of Breath. albuterol 2021-0 Yes [id number] 2{puff} Inhale 2 Univers 90 2-08 Puffs ity of mcg/actuati 00:00: every 4 [place] on inhaler 00 (four) Medical hours as Branch needed for Wheezing or Shortness of Breath. Nebulizer & 2021-0 Yes [id number] Use as Univers Compressor 2-08 directed ity o f For Neb 00:00: Medical Branch albuterol 2021-0 Yes [id number] 2.5mg Inhale 3 Univers 2.5 mg /3 2-08 mL every 4 ity of mL (0.083 00:00: (four) [place] %) 00 hours as Medical nebulizer needed for Bran ch solution Wheezing or Shortness of Breath. albuterol 2021-0 Yes [id number] 2{puff} Inhale 2 Univers 90 2-08 Puffs ity of mcg/actuati 00:00: every 4 [place] on inhaler 00 (four) Medical hours as Branch needed for Wheezing or Shortness of Breath. Nebulizer & 2021-0 Yes [id number] Use as Univers Compressor 2-08 directed ity o f For Neb 00:00: Medical Branch albuterol 2021-0 Yes [id number] 2.5mg Inhale 3 Univers 2.5 mg /3 2-08 mL every 4 ity of mL (0.083 00:00: (four) [place] %) 00 hours as Medical nebulizer needed for Bran ch solution Wheezing or Shortness of Breath. albuterol 2021-0 Yes [id number] 2{puff} Inhale 2 Univers 90 2-08 Puffs ity of mcg/actuati 00:00: every 4 [place] on inhaler 00 (four) Medical hours as Branch needed for Wheezing or Shortness of Breath. Nebulizer & 2021-0 Yes [id number] Use as Univers Compressor 2-08 directed ity o f For Neb 00:00: Medical Branch albuterol 2021-0 Yes [id number] 2.5mg Inhale 3 Univers 2.5 mg /3 2-08 mL every 4 ity of mL (0.083 00:00: (four) [place] %) 00 hours as Medical nebulizer needed for Bran ch solution Wheezing or Shortness of Breath. albuterol 2021-0 Yes [id number] 2{puff} Inhale 2 Univers 90 2-08 Puffs ity of mcg/actuati 00:00: every 4 [place] on inhaler 00 (four) Medical hours as Branch needed for Wheezing or Shortness of Breath. Nebulizer & 2021-0 Yes [id number] Use as Univers Compressor 2-08 directed ity o f For Neb 00:: Medical Branch albuterol 2021-0 Yes [id number] 2.5mg Inhale 3 Univers 2.5 mg /3 2-08 mL every 4 ity of mL (0.083 00:00: (four) [place] %) 00 hours as Medical nebulizer needed for Bran ch solution Wheezing or Shortness of Breath. albuterol 2021-0 Yes [id number] 2{puff} Inhale 2 Univers 90 2-08 Puffs ity of mcg/actuati 00:00: every 4 [place] on inhaler 00 (four) Medical hours as Branch needed for Wheezing or Shortness of Breath. Nebulizer & 2021-0 Yes [id number] Use as Univers Compressor 2-08 directed ity o f For Neb 00:00: Medical Branch albuterol 2021-0 Yes [id number] 2.5mg Inhale 3 Univers 2.5 mg /3 2-08 mL every 4 ity of mL (0.083 00:00: (four) [place] %) 00 hours as Medical nebulizer needed for Bran ch solution Wheezing or Shortness of Breath. albuterol 0 Yes [id number] 2{puff} Inhale 2 Univers 90 2-08 Puffs ity of mcg/actuati 00:00: every 4 [place] on inhaler 00 (four) Medical hours as Branch needed for Wheezing or Shortness of Breath. Nebulizer & 2021-0 Yes [id number] Use as [facility] Compressor 2-08 directed ity o f For Neb 00:00: Medical Branch Nebulizer & 2021-0 Yes [id number] Use as Univers Compressor 2-08 directed ity o f For Neb 00:00: Medical Branch Nebulizer & 2021-0 Yes [id number] Use as [facility] Compressor 2-08 directed ity o f For Neb 00:00: Medical Branch Nebulizer & 2021-0 Yes [id number] Use as [facility] Compressor 2-08 directed ity o f For Neb 00:00: Medical Branch Nebulizer & 2021-0 Yes [id number] Use as [facility] Compressor 2-08 directed ity o f For Neb 00:00: Medical Branch Nebulizer & 2021-0 Yes [id number] Use as [facility] Compressor 2-08 directed ity o f For Neb 00:00: Medical Branch Nebulizer & 2021-0 Yes [id number] Use as [facility] Compressor 2-08 directed ity o f For Neb 00:00: Medical Branch albuterol 2021-0 2022- No [id number] 2.5mg Inhale 3 Univers 2.5 mg /3 2-08 10-14 mL every 4 ity of mL (0.083 00:00: 00:00 (four) [place] %) 00 :00 hours as Medical nebulizer needed for Bran ch solution Wheezing or Shortness of Breath. albuterol 2021- No [id number] 2{puff} Inhale 2 Univers 90 2-08 10-14 Puffs ity of mcg/actuati 00:00: 00:00 every 4 [place] on inhaler 00 :00 (four) Medical hours as Branch needed for Wheezing or Shortness of Breath. fluticasone 2020-08 Yes [id number] 1{puff} Inhale 1 Univers -umeclidin- 1-11 Puff ity of vilanter 00:00: daily. [place] ([facility] 00 Medical ELLIPTA) Branch 100-62.5-25 mcg DsDv fluticasone 2020-08 Yes [id number] 1{puff} Inhale 1 Univers -umeclidin- 1-11 Puff ity of vilanter 00:00: daily. [place] ([facility] 00 Medical ELLIPTA) Branch 100-62.5-25 mcg DsDv fluticasone 2020-08 Yes [id number] 1{puff} Inhale 1 Univers -umeclidin- 1-11 Puff ity of vilanter 00:00: daily. [place] ([facility] 00 Medical ELLIPTA) Branch 100-62.5-25 mcg DsDv fluticasone 2020-08 Yes [id number] 1{puff} Inhale 1 Univers -umeclidin- 1-11 Puff ity of vilanter 00:00: daily. [place] ([place] [address] Medical ELLIPTA) Branch 100-62.5-25 mcg DsDv fluticasone 2020-08 Yes [id number] 1{puff} Inhale 1 Univers -umeclidin- 1-11 Puff ity of vilanter 00:00: daily. [place] ([facility] 00 Medical ELLIPTA) Branch 100-62.5-25 mcg DsDv fluticasone 2020-08 Yes [id number] 1{puff} Inhale 1 Univers -umeclidin- 1-11 Puff ity of vilanter 00:00: daily. [place] ([facility] 00 Medical ELLIPTA) Branch 100-62.5-25 mcg DsDv fluticasone 2020-08 Yes [id number] 1{puff} Inhale 1 Univers -umeclidin- 1-11 Puff ity of vilanter 00:00: daily. [place] ([facility] 00 Medical ELLIPTA) Branch 100-62.5-25 mcg DsDv fluticasone 2020-08 Yes [id number] 1{puff} Inhale 1 Univers -umeclidin- 1-11 Puff ity of vilanter 00:00: daily. [place] ([facility] 00 Medical ELLIPTA) Branch 100-62.5-25 mcg DsDv fluticasone 2020-08- No [id number] 1{puff} Inhale 1 Univers -umeclidin- 1-11 10-27 Puff ity of vilanter 00:00: 00:00 daily. [place] ([facility] 00 :00 Medical ELLIPTA) Branch 100-62.5-25 mcg DsDv fluticasone 2020-08- No [id number] 1{puff} Inhale 1 Univers -umeclidin- 1-11 10-27 Puff ity of vilanter 00:00: 00:00 daily. [place] (T[facility]LEGY 00 :00 Medical ELLIPTA) Branch 100-62.5-25 [...] a C 01 l (RENAL-BLAYNE ORAL) albuterol 0 Yes 2{puff} Q6H Inhale 2 M ethodi (PROAIR 9-[address] HFA) 90 09:53: every 6 Hospita mcg/actuati 01 (six) l on inhaler hours as needed. fluticasone 0 Yes Inhale 1 [facility] -umeclidin- 9-07 [...] a C 01 l (RENAL-BLAYNE ORAL) albuterol 0 Yes 2{puff} Q6H Inhale 2 M ethodi (PROAIR 9-[address] HFA) 90 09:53: every 6 Hospita mcg/actuati 01 (six) l on inhaler hours as needed. fluticasone 0 Yes Inhale 1 [facility] -umeclidin- 9-[address] vilanter 09:53: s as Hospita (Trelegy 01 needed. l Ellipta) 100-62.5-25 mcg blister with device powder for inhalation albuterol Yes 2{puff} Q6H Inhale 2 M ethodi (PROAIR - puffs st HFA) 90 09:53: every 6 Hospita mcg/actuati 01 (six) l on inhaler hours as needed. fluticasone Yes Inhale 1 [facility] -umeclidin- 04-[address] vilanter 09:53: s as Hospita [...] folic Yes Take by Methodi acid/vit B 04-[address] complex and 09:53: Hospit a C 01 l (RENAL-BLAYNE ORAL) lidocaine-p 2020-0 2021- No Apply Meth luz rilocaine 03-[address] (EMLA) 00:00: 04:59 as needed Hospi ta 2.5-2.5 % 00 :00 for mild l cream pain. Apply to area 30 - 45 minutes prior to dialysis treatment. lidocaine-p 2020-0 2021- No Apply Meth luz rilocaine 03-[address] (EMLA) 00:00: 04:59 as needed Hospi ta 2.5-2.5 % 00 :00 for mild l cream pain. Apply to area 30 - 45 minutes prior to dialysis treatment. atenoloL Yes 25mg QD Take 25 mg [facility] (TENORMIN) 7-[address] 25 MG 00:00: daily. Hospita tablet 00 l atenoloL Yes 25mg QD Take 25 mg [facility] (TENORMIN) 7-[address] 25 MG 00:00: daily. Hospita tablet 00 l atenoloL 2021-0 Yes 25mg QD Take 25 mg [facility] (TENORMIN) 7-[address] 25 MG 00:00: daily. Hospita tablet 00 l atenoloL 2021-0 Yes 25mg QD Take 25 [...] MG tablet 00:00: Hospita 00 l hydrOXYchlo 2021-0 Yes 200mg QD Take 200 M ethodi roQUINE 5-[address] (PLAQUENIL) 00:00: mouth Hospi ta 200 mg 00 daily. l tablet hydrOXYchlo 2021-0 Yes 200mg QD Take 200 M ethodi [...] 00:00: Hospita MG tablet 00 l metoclopram 2020-0 Yes 5mg Take 5 mg M ethodi tish 2-[address] (REGLAN) 5 00:00: Hospita MG tablet 00 l metoclopram 2020-0 Yes 5mg Take 5 mg M ethodi tish 2-[address] (REGLAN) 5 00:00: Hospita MG tablet 00 l polyethylen 2020-0 Yes [id number] 17g Take 17 g Univers e glycol 2-04 by mouth 2 ity o f 3350 17 00:00: (two) [place] gram/dose 00 times Medical powder daily. Branch losartan 50 2020-0 Yes [id number] 50mg Take 1 Un rodr[facility]z mg tablet 2-04 tablet by ity o f 00:00: mouth 2 [place] 00 (two) Medical times Branch daily. polyethylen 2020-0 Yes [id number] 17g Take 17 g Univers e glycol 2-04 by mouth 2 ity o f 3350 17 00:00: (two) [place] gram/dose 00 times Medical powder daily. Branch losartan 50 2020-0 Yes [id number] 50mg Take 1 Un [facility] mg tablet 2-04 tablet by ity o f 00:00: mouth 2 [place] 00 (two) Medical times Branch daily. polyethylen 2020-0 Yes [id number] 17g Take 17 g Univers e glycol 2-04 by mouth 2 ity o f 3350 17 00:00: (two) [place] gram/dose 00 times Medical powder daily. Branch losartan 50 2020-0 Yes [id number] 50mg Take 1 Un [facility] mg tablet 2-04 tablet by ity o f 00:00: mouth 2 [place] 00 (two) Medical times Branch daily. polyethylen 1-0 Yes [id number] 17g Take 17 g Univers e glycol 2-04 by mouth 2 ity o f 3350 17 00:00: (two) [place] gram/dose 00 times Medical powder daily. Branch losartan 50 2020-0 Yes [id number] 50mg Take 1 Un [facility] mg tablet 2-04 tablet by ity o f 00:00: mouth 2 [place] 00 (two) Medical times Branch daily. polyethylen 2020-0 Yes [id number] 17g Take 17 g Univers e glycol 2-04 by mouth 2 ity o f 3350 17 00:00: (two) [place] gram/dose 00 times Medical powder daily. Branch losartan 50 2020-0 Yes [id number] 50mg Take 1 Un [facility] mg tablet 2-04 tablet by ity o f 00:00: mouth 2 00 (two) Medical times Branch daily. polyethylen 2020-0 Yes [id number] 17g Take 17 g Univers e glycol 2-04 by mouth 2 ity o f 3350 17 00:00: (two) [place] gram/dose 00 times Medical powder daily. Branch losartan 50 2020-0 Yes [id number] 50mg Take 1 Un [facility] mg tablet 2-04 tablet by ity o f 00:00: mouth 2 00 (two) Medical times Branch daily. polyethylen 2020-0 Yes [id number] 17g Take 17 g Univers e glycol 2-04 by mouth 2 ity o f 3350 17 00:00: (two) [place] gram/dose 00 times Medical powder daily. Branch losartan 50 2020-0 Yes [id number] 50mg Take 1 Un [facility] mg tablet 2-04 tablet by ity o f 00:00: mouth 2 00 (two) Medical times Branch daily. polyethylen 2020-0 Yes [id number] 17g Take 17 g Univers e glycol 2-04 by mouth 2 ity o f 3350 17 00:00: (two) [place] gram/dose 00 times Medical powder daily. Branch losartan 50 2020-0 Yes [id number] 50mg Take 1 Un [facility] mg tablet 2-04 tablet by ity o f 00:00: mouth 2 [place] 00 (two) Medical times Branch daily. polyethylen 1-0 Yes [id number] 17g Take 17 g Univers e glycol 2-04 by mouth 2 ity o f 3350 17 00:00: (two) [place] gram/dose 00 times Medical powder daily. Branch losartan 50 2020-0 Yes [id number] 50mg Take 1 Un [facility] mg tablet 2-04 tablet by ity o f 00:00: mouth 2 [place] 00 (two) Medical times Branch daily. polyethylen 2020-0 Yes [id number] 17g Take 17 g Univers e glycol 2-04 by mouth 2 ity o f 3350 17 00:00: (two) [place] gram/dose 00 times Medical powder daily. Branch losartan 50 2020-0 Yes [id number] 50mg Take 1 Un [facility] mg tablet 2-04 tablet by ity o f 00:00: mouth 2 00 (two) Medical times Branch daily. polyethylen 2020-0 Yes [id number] 17g Take 17 g Univers e glycol 2-04 by mouth 2 ity o f 3350 17 00:00: (two) [place] gram/dose 00 times Medical powder daily. Branch losartan 50 2020-0 Yes [id number] 50mg Take 1 Un [facility] mg tablet 2-04 tablet by ity o f 00:00: mouth 2 00 (two) Medical times Branch daily. polyethylen 2020-0 Yes [id number] 17g Take 17 g Univers e glycol 2-04 by mouth 2 ity o f 3350 17 00:00: (two) [place] gram/dose 00 times Medical powder daily. Branch losartan 50 2020-0 Yes [id number] 50mg Take 1 Un [place] mg tablet 2-04 tablet by ity o f 00:00: mouth 2 00 (two) Medical times Branch daily. polyethylen 2020-0 Yes [id number] 17g Take 17 g Univers e glycol 2-04 by mouth 2 ity o f 3350 17 00:00: (two) [place] gram/dose 00 times Medical powder daily. Branch losartan 50 2020-0 Yes [id number] 50mg Take 1 Un [facility] mg tablet 2-04 tablet by ity o f 00:00: mouth 2 00 (two) Medical times Branch daily. polyethylen 2020-0 Yes [id number] 17g Take 17 g Univers e glycol 2-04 by mouth 2 ity o f 3350 17 00:00: (two) [place] gram/dose 00 times Medical powder daily. Branch losartan 50 2020-0 Yes [id number] 50mg Take 1 Un [facility] mg tablet 2-04 tablet by ity o f 00:00: mouth 2 [place] 00 (two) Medical times Branch daily. polyethylen 2020-0 Yes [id number] 17g Take 17 g Univers e glycol 2-04 by mouth 2 ity o f 3350 17 00:00: (two) [place] gram/dose 00 times Medical powder daily. Branch losartan 50 2020-0 Yes [id number] 50mg Take 1 Un [facility] mg tablet 2-04 tablet by ity o f 00:00: mouth 2 00 (two) Medical times Branch daily. polyethylen 2020-0 Yes [id number] 17g Take 17 g Univers e glycol 2-04 by mouth 2 ity o f 3350 17 00:00: (two) [place] gram/dose 00 times Medical powder daily. Branch losartan 50 2020-0 Yes [id number] 50mg Take 1 Un [place] mg tablet 2-04 tablet by ity o f 00:00: mouth 2 (two) Medical times Branch daily. polyethylen 2020-0 Yes [id number] 17g Take 17 g Univers e glycol 2-04 by mouth 2 ity o f 3350 17 00:00: (two) [place] gram/dose 00 times Medical powder daily. Branch losartan 50 2020-0 Yes [id number] 50mg Take 1 Un [facility] mg tablet 2-04 tablet by ity o f 00:00: mouth 2 (two) Medical times Branch daily. polyethylen 2020-0 Yes [id number] 17g Take 17 g Univers e glycol 2-04 by mouth 2 ity o f 3350 17 00:00: (two) [place] gram/dose 00 times Medical powder daily. Branch losartan 50 2020-0 Yes [id number] 50mg Take 1 [facility] mg tablet 2-04 tablet by ity o f 00:00: mouth 2 (two) Medical times Branch daily. cyanocobala 2020-0 [...] awake as needed (RT). vitamin 2020-0 Yes [id number] 1000ug Take 1 [facility] n[facility] B-12 1,000 1-17 tablet by [facility] mcg tablet 00:00: mouth [place] 00 daily. [facility] calcitrioL 2020-0 Yes [id number] .5ug Take 1 [facility] 0.5 mcg 1-17 capsule by [facility] capsule 00:00: mouth [place] 00 daily. [facility] vitamin 2020-0 Yes [id number] 1000ug Take 1 [facility] n[facility] B-12 1,000 1-17 tablet by [facility] of mcg tablet 00:00: mouth [place] 00 daily. [facility] calcitrioL 2020-0 Yes [id number] .5ug Take 1 [facility] 0.5 mcg 1-17 capsule by [facility] of capsule 00:00: mouth [place] 00 daily. [facility] vitamin 2020-0 Yes [id number] 1000ug Take 1 [facility] nivers B-12 1,000 1-17 tablet by [facility] of mcg tablet 00:00: mouth [place] 00 daily. [facility] calcitrioL 2020-0 Yes [id number] .5ug Take 1 [facility] 0.5 mcg 1-17 capsule by [facility] of capsule 00:00: mouth [place] 00 daily. [facility] vitamin 2020-0 Yes [id number] 1000ug Take 1 [facility] nivers B-12 1,000 1-17 tablet by [facility] of mcg tablet 00:00: mouth [place] 00 daily. [facility] calcitrioL 2020-0 Yes [id number] .5ug Take 1 [facility] 0.5 mcg 1-17 capsule by [facility] of capsule 00:00: mouth [place] 00 daily. [facility] vitamin 2020-0 Yes [id number] 1000ug Take 1 [facility] nivers B-12 1,000 1-17 tablet by [facility] of mcg tablet 00:00: mouth [place] 00 daily. [facility] calcitrioL 2020-0 Yes [id number] .5ug Take 1 [facility] 0.5 mcg 1-17 capsule by [facility] of capsule 00:00: mouth [place] 00 daily. [facility] vitamin 2020-0 Yes [id number] 1000ug Take 1 [facility] n[facility] B-12 1,000 1-17 tablet by [facility] of mcg tablet 00:00: mouth [place] 00 daily. [facility] calcitrioL 2020-0 Yes [id number] .5ug Take 1 [facility] 0.5 mcg 1-17 capsule by [facility] of capsule 00:00: mouth [place] 00 daily. [facility] vitamin 2020-0 Yes [id number] 1000ug Take 1 [facility] nivers B-12 1,000 1-17 tablet by [facility] of mcg tablet 00:00: mouth [place] 00 daily. [facility] calcitrioL 2020-0 Yes [id number] .5ug Take 1 [facility] 0.5 mcg 1-17 capsule by [facility] of capsule 00:00: mouth [place] 00 daily. [facility] vitamin 2020-0 Yes [id number] 1000ug Take 1 [facility] n[facility] B-12 1,000 1-17 tablet by [facility] of mcg tablet 00:00: mouth [place] 00 daily. [facility] calcitrioL 2020-0 Yes [id number] .5ug Take 1 [facility] 0.5 mcg 1-17 capsule by [facility] of capsule 00:00: mouth [place] 00 daily. [facility] vitamin 2020-0 Yes [id number] 1000ug Take 1 [facility] n[facility] B-12 1,000 1-17 tablet by [facility] of mcg tablet 00:00: mouth [place] 00 daily. [facility] calcitrioL 2020-0 Yes [id number] .5ug Take 1 [facility] 0.5 mcg 1-17 capsule by [facility] of capsule 00:00: mouth [place] 00 daily. [facility] vitamin 2020-0 Yes [id number] 1000ug Take 1 [facility] B-12 1,000 1-17 tablet by [facility] of mcg tablet 00:00: mouth [place] 00 daily. [facility] calcitrioL 2021-0 Yes [id number] .5ug Take 1 [facility] 0.5 mcg 1-17 capsule by [facility] of capsule 00:00: mouth [place] 00 daily. [facility] vitamin 2021-0 Yes [id number] 1000ug Take 1 [facility] n[facility] B-12 1,000 1-17 tablet by [facility] of mcg tablet 00:00: mouth [place] 00 daily. [facility] calcitrioL 1-0 Yes [id number] .5ug Take 1 [facility] 0.5 mcg 1-17 capsule by [facility] of capsule 00:00: mouth [place] 00 daily. [facility] vitamin 2021-0 Yes [id number] 1000ug Take 1 [facility] B-12 1,000 1-17 tablet by [facility] of mcg tablet 00:00: mouth [place] 00 daily. [facility] calcitrioL 2020-0 Yes [id number] .5ug Take 1 [facility] 0.5 mcg 1-17 capsule by [facility] of capsule 00:00: mouth [place] 00 daily. [facility] vitamin 2020-0 Yes [id number] 1000ug Take 1 [facility] B-12 1,000 1-17 tablet by [facility] of mcg tablet 00:00: mouth [place] 00 daily. [facility] calcitrioL 2020-0 Yes [id number] .5ug Take 1 [facility] 0.5 mcg 1-17 capsule by [facility] of capsule 00:00: mouth [place] 00 daily. [facility] vitamin 1-0 Yes [id number] 1000ug Take 1 [facility] B-12 1,000 1-17 tablet by [facility] of mcg tablet 00:00: mouth [place] 00 daily. [facility] calcitrioL 2020-0 Yes [id number] .5ug Take 1 [facility] 0.5 mcg 1-17 capsule by [facility] of capsule 00:00: mouth [place] 00 daily. [facility] vitamin 2021-0 Yes [id number] 1000ug Take 1 [facility] n[facility] B-12 1,000 1-17 tablet by [facility] of mcg tablet 00:00: mouth [place] 00 daily. [facility] calcitrioL 1-0 Yes [id number] .5ug Take 1 [facility] 0.5 mcg 1-17 capsule by [facility] of capsule 00:00: mouth [place] 00 daily. [facility] vitamin 2021-0 Yes [id number] 1000ug Take 1 [facility] n[facility] B-12 1,000 1-17 tablet by [facility] of mcg tablet 00:00: mouth [place] 00 daily. [facility] calcitrioL 2021-0 Yes [id number] .5ug Take 1 [facility] 0.5 mcg 1-17 capsule by [facility] of capsule 00:00: mouth [place] 00 daily. [facility] vitamin 2020-0 Yes [id number] 1000ug Take 1 [facility] B-12 1,000 1-17 tablet by [facility] of mcg tablet 00:00: mouth [place] 00 daily. [facility] calcitrioL Yes [id number] .5ug Take 1 [facility] 0.5 mcg 1-17 capsule by [facility] of capsule 00:00: mouth [place] 00 daily. [facility] vitamin 2020-0 Yes [id number] 1000ug Take 1 [facility] n[facility] B-12 1,000 1-17 tablet by [facility] of mcg tablet 00:00: mouth [place] 00 daily. [facility] calcitrioL Yes [id number] .5ug Take 1 [facility] 0.5 mcg 1-17 capsule by [facility] of capsule 00:00: mouth [place] 00 daily. [facility] cyanocobala Yes 1000ug Take 1,000 [facility] [facility]AMIN [facility] B[facility] 1000 00 l MCG tablet ondansetron Yes 1{tbl} Q6H Take 1 [facility] (ZOFRAN) 4 1-[address] [facility] tablet 00:[facility] 00 Every 6 l hours while awake as needed (RT). docusate Yes 1{capsu Take 1 [facility] luz sodium 1-16 le} capsule by st (COLACE) 00:00: mouth[facility] 100 MG 00 l capsule docusate Yes 1{capsu Take 1 [facility] luz sodium 1-16 le} capsule by st (COLACE) 00:00: mouth[facility] 100 MG 00 l capsule docusate 0 Yes 1{capsu Take 1 [facility] luz sodium 1-16 le} capsule by st (COLACE) 00:00: mouth[facility] 100 MG 00 l capsule sodium Yes [id number] 1g Take 1 [facility] ers chloride 1 1-16 tablet by [facility] gram tablet 00:00: mouth [facility] [place] (four) [facility] times [facility] daily. atenoloL 25 Yes [id number] 25mg Take 1 [facility] mg tablet 1-16 tablet by ity o f 00:00: mouth 2 (two) Medical times Branch daily. doxazosin 4 2020-0 Yes [id number] 4mg Take 1 [facility] mg tablet 1-16 tablet by ity o f 00:00: mouth 2 (two) Medical times Branch daily. hydrALAZINE 2020-0 Yes [id number] 50mg Take 1 [facility] 50 mg 1-16 tablet by [facility] of tablet 00:00: mouth (three) Medical times Branch daily. docusate 2020-0 Yes [id number] 100mg Take 1 [facility] 100 mg 1-16 capsule by [facility] of capsule 00:00: mouth (two) Medical times Branch daily. Polyethylen 2020-0 Yes [id number] 17g Take 1 [facility] e Glycol 1-16 Packet by ity of 3350 17 00:00: mouth [place] gram powder 00 every 24 Medi nicole (twenty-fo Branch ur) hours as needed for Constipati on. sodium 2020-0 Yes [id number] 1g Take 1 [facility] ers chloride 1 1-16 tablet by ity of gram tablet 00:00: mouth (four) Medical times Branch daily. atenoloL 25 2020-0 Yes [id number] 25mg Take 1 [facility] mg tablet 1-16 tablet by ity o f 00:00: mouth (two) Medical times Branch daily. doxazosin 4 2020-0 Yes [id number] 4mg Take 1 [facility] mg tablet 1-16 tablet by ity o f 00:00: mouth (two) Medical times Branch daily. hydrALAZINE 2020-0 Yes [id number] 50mg Take 1 [facility] 50 mg 1-16 tablet by [facility] of tablet 00:00: mouth (three) Medical times Branch daily. docusate 2020-0 Yes [id number] 100mg Take 1 [facility] 100 mg 1-16 capsule by [facility] of capsule 00:00: mouth (two) Medical times Branch daily. Polyethylen 2020-0 Yes [id number] 17g Take 1 [facility] e Glycol 1-16 Packet by ity of 3350 17 00:00: mouth [place] gram powder 00 every 24 Medi nicole (twenty-fo Branch ur) hours as needed for Constipati on. sodium 2020-0 Yes [id number] 1g Take 1 [facility] ers chloride 1 1-16 tablet by [facility] of gram tablet 00:00: mouth [facility] [place] 00 (four) [facility] times Branch daily. atenoloL 25 2020-0 Yes [id number] 25mg Take 1 [facility] mg tablet 1-16 tablet by ity o f 00:00: mouth 2 (two) Medical times Branch daily. doxazosin 4 2020-0 Yes [id number] 4mg Take 1 [facility] mg tablet 1-16 tablet by ity o f 00:00: mouth 2 (two) Medical times Branch daily. hydrALAZINE 2020-0 Yes [id number] 50mg Take 1 [facility] 50 mg 1-16 tablet by [facility]y of tablet 00:00: mouth 3 (three) Medical times Branch daily. docusate 2020-0 Yes [id number] 100mg Take 1 [facility] 100 mg 1-16 capsule by [facility] of capsule 00:00: mouth (two) Medical times Branch daily. Polyethylen 2020-0 Yes [id number] 17g Take 1 [facility] e Glycol 1-16 Packet by ity of 3350 17 00:00: mouth [place] gram powder 00 every 24 Medi nicole (twenty-fo Branch ur) hours as needed for Constipati on. sodium 2020-0 Yes [id number] 1g Take 1 [facility] ers chloride 1 1-16 tablet by [facility] of gram tablet 00:00: mouth [facility] [place] 00 (four) [facility] times Branch daily. atenoloL 25 2020-0 Yes [id number] 25mg Take 1 [facility] mg tablet 1-16 tablet by ity o f 00:00: mouth 2 (two) Medical times Branch daily. doxazosin 4 2020-0 Yes [id number] 4mg Take 1 [facility] mg tablet 1-16 tablet by ity o f 00:00: mouth 2 (two) Medical times Branch daily. hydrALAZINE 2020-0 Yes [id number] 50mg Take 1 [facility] 50 mg 1-16 tablet by [facility]y of tablet 00:00: mouth 3 (three) Medical times Branch daily. docusate 2020-0 Yes [id number] 100mg Take 1 [facility] 100 mg 1-16 capsule by [facility] of capsule 00:00: mouth 2 (two) Medical times Branch daily. Polyethylen 2020-0 Yes [id number] 17g Take 1 [facility] e Glycol 1-16 Packet by ity of 3350 17 00:00: mouth [place] gram powder 00 every 24 Medi nicole (twenty-fo Branch ur) hours as needed for Constipati on. sodium 2020-0 Yes [id number] 1g Take 1 [facility] ers chloride 1 1-16 tablet by [facility] of gram tablet 00:00: mouth [facility] [place] 00 (four) [facility] times Branch daily. atenoloL 25 2020-0 Yes [id number] 25mg Take 1 [facility] mg tablet 1-16 tablet by ity o f 00:00: mouth 2 (two) Medical times Branch daily. doxazosin 4 2020-0 Yes [id number] 4mg Take 1 [facility] mg tablet 1-16 tablet by ity o f 00:00: mouth 2 (two) Medical times Branch daily. hydrALAZINE 2020-0 Yes [id number] 50mg Take 1 [facility] 50 mg 1-16 tablet by [facility]y of tablet 00:00: mouth 3 (three) Medical times Branch daily. docusate 2020-0 Yes [id number] 100mg Take 1 [facility] 100 mg 1-16 capsule by [facility]y of capsule 00:00: mouth (two) Medical times Branch daily. Polyethylen 2020-0 Yes [id number] 17g Take 1 [facility] e Glycol 1-16 Packet by ity of 3350 17 00:00: mouth [place] gram powder 00 every 24 Medi nicole (twenty-fo Branch ur) hours as needed for Constipati on. sodium 2020-0 Yes [id number] 1g Take 1 [facility] ers chloride 1 1-16 tablet by [facility] of gram tablet 00:00: mouth [facility] [place] 00 (four) Medical times Branch daily. atenoloL 25 2020-0 Yes [id number] 25mg Take 1 [facility] mg tablet 1-16 tablet by ity o f 00:00: mouth 2 (two) Medical times Branch daily. doxazosin 4 2020-0 Yes [id number] 4mg Take 1 [facility] mg tablet 1-16 tablet by ity o f 00:00: mouth 2 (two) Medical times Branch daily. hydrALAZINE 2020-0 Yes [id number] 50mg Take 1 [facility] 50 mg 1-16 tablet by [facility]y of tablet 00:00: mouth 3 (three) Medical times Branch daily. docusate 2021-0 Yes [id number] 100mg Take 1 [facility] 100 mg 1-16 capsule by [facility]y of capsule 00:00: mouth 2 (two) Medical times Branch daily. Polyethylen 2020-0 Yes [id number] 17g Take 1 [facility] e Glycol 1-16 Packet by ity of 3350 17 00:00: mouth [place] gram powder 00 every 24 Medi nicole (twenty-fo Branch ur) hours as needed for Constipati on. sodium 2020-0 Yes [id number] 1g Take 1 [facility] ers chloride 1 1-16 tablet by [facility] of gram tablet 00:00: mouth 4 [place] 00 (four) Medical times Branch daily. atenoloL 25 2020-0 Yes [id number] 25mg Take 1 [facility] mg tablet 1-16 tablet by ity o f 00:00: mouth 2 (two) Medical times Branch daily. doxazosin 4 2020-0 Yes [id number] 4mg Take 1 [facility] mg tablet 1-16 tablet by ity o f 00:00: mouth 2 (two) Medical times Branch daily. hydrALAZINE 2020-0 Yes [id number] 50mg Take 1 [facility] 50 mg 1-16 tablet by [facility]y of tablet 00:00: mouth 3 (three) Medical times Branch daily. docusate 2020-0 Yes [id number] 100mg Take 1 [facility] 100 mg 1-16 capsule by [facility]y of capsule 00:00: mouth 2 (two) Medical times Branch daily. Polyethylen 2020-0 Yes [id number] 17g Take 1 [facility] e Glycol 1-16 Packet by ity of 3350 17 00:00: mouth [place] gram powder 00 every 24 Medi nicole (twenty-fo Branch ur) hours as needed for Constipati on. sodium 2020-0 Yes [id number] 1g Take 1 [facility] ers chloride 1 1-16 tablet by [facility] of gram tablet 00:00: mouth 4 [place] 00 (four) Medical times Branch daily. atenoloL 25 2020-0 Yes [id number] 25mg Take 1 [facility] mg tablet 1-16 tablet by ity o f 00:00: mouth (two) Medical times Branch daily. doxazosin 4 2020-0 Yes [id number] 4mg Take 1 [facility] mg tablet 1-16 tablet by ity o f 00:00: mouth 2 (two) Medical times Branch daily. hydrALAZINE 1-0 Yes [id number] 50mg Take 1 [facility] 50 mg 1-16 tablet by [facility]y of tablet 00:00: mouth 3 (three) Medical times Branch daily. docusate 1-0 Yes [id number] 100mg Take 1 [facility] 100 mg 1-16 capsule by [facility]y of capsule 00:00: mouth (two) Medical times Branch daily. Polyethylen 2020-0 Yes [id number] 17g Take 1 [facility] e Glycol 1-16 Packet by ity of 3350 17 00:00: mouth [place] gram powder 00 every 24 Medi nicole (twenty-fo Branch ur) hours as needed for Constipati on. sodium 2020-0 Yes [id number] 1g Take 1 [facility] ers chloride 1 1-16 tablet by ity of gram tablet 00:00: mouth (four) Medical times Branch daily. atenoloL 25 2020-0 Yes [id number] 25mg Take 1 [facility] mg tablet 1-16 tablet by ity o f 00:00: mouth (two) Medical times Branch daily. doxazosin 4 2020-0 Yes [id number] 4mg Take 1 [facility] mg tablet 1-16 tablet by ity o f 00:00: mouth (two) Medical times Branch daily. hydrALAZINE 2020-0 Yes [id number] 50mg Take 1 [facility] 50 mg 1-16 tablet by [facility]y of tablet 00:00: mouth (three) Medical times Branch daily. docusate 1-0 Yes [id number] 100mg Take 1 [facility] 100 mg 1-16 capsule by [facility] of capsule 00:00: mouth (two) Medical times Branch daily. Polyethylen 1-0 Yes [id number] 17g Take 1 [facility] e Glycol 1-16 Packet by ity of 3350 17 00:00: mouth [place] gram powder 00 every 24 Medi nicole (twenty-fo Branch ur) hours as needed for Constipati on. sodium 2020-0 Yes [id number] 1g Take 1 [facility] ers chloride 1 1-16 tablet by [facility] of gram tablet 00:00: mouth 4 [place] 00 (four) Medical times [facility] daily. atenoloL 25 2020-0 Yes [id number] 25mg Take 1 [facility] mg tablet 1-16 tablet by ity o f 00:00: mouth (two) Medical times Branch daily. doxazosin 4 2020-0 Yes [id number] 4mg Take 1 [facility] mg tablet 1-16 tablet by ity o f 00:00: mouth (two) Medical times Branch daily. hydrALAZINE 2020-0 Yes [id number] 50mg Take 1 [facility] 50 mg 1-16 tablet by ity of tablet 00:00: mouth (three) Medical times Branch daily. docusate 2020-0 Yes [id number] 100mg Take 1 [facility] 100 mg 1-16 capsule by [facility]y of capsule 00:00: mouth (two) Medical times Branch daily. Polyethylen 2020-0 Yes [id number] 17g Take 1 [facility] e Glycol 1-16 Packet by ity of 3350 17 00:00: mouth [place] gram powder 00 every 24 Medi nicole (twenty-fo Branch ur) hours as needed for Constipati on. sodium 2020-0 Yes [id number] 1g Take 1 [facility] ers chloride 1 1-16 tablet by [facility] of gram tablet 00:00: mouth 4 [place] 00 (four) Medical times [facility] daily. atenoloL 25 2020-0 Yes [id number] 25mg Take 1 [facility] mg tablet 1-16 tablet by ity o f 00:00: mouth (two) Medical times Branch daily. doxazosin 4 2020-0 Yes [id number] 4mg Take 1 [facility] mg tablet 1-16 tablet by ity o f 00:00: mouth (two) Medical times Branch daily. hydrALAZINE 2020-0 Yes [id number] 50mg Take 1 [facility] 50 mg 1-16 tablet by ity of tablet 00:00: mouth 3 (three) Medical times Branch daily. docusate 2020-0 Yes [id number] 100mg Take 1 [facility] 100 mg 1-16 capsule by [facility]y of capsule 00:00: mouth (two) Medical times Branch daily. Polyethylen 2020-0 Yes [id number] 17g Take 1 [facility] e Glycol 1-16 Packet by ity of 3350 17 00:00: mouth [place] gram powder 00 every 24 Medi nicole (twenty-fo Branch ur) hours as needed for Constipati on. sodium 2020-0 Yes [id number] 1g Take 1 [facility] ers chloride 1 1-16 tablet by [facility] of gram tablet 00:00: mouth 4 [place] 00 (four) Medical times [facility] daily. atenoloL 25 2020-0 Yes [id number] 25mg Take 1 [facility] mg tablet 1-16 tablet by ity o f 00:00: mouth 2 (two) Medical times Branch daily. doxazosin 4 2020-0 Yes [id number] 4mg Take 1 [facility] mg tablet 1-16 tablet by ity o f 00:00: mouth 2 (two) Medical times Branch daily. hydrALAZINE 2020-0 Yes [id number] 50mg Take 1 [facility] 50 mg 1-16 tablet by [facility] of tablet 00:00: mouth 3 (three) Medical times Branch daily. docusate 2020-0 Yes [id number] 100mg Take 1 [facility] 100 mg 1-16 capsule by [facility] of capsule 00:00: mouth (two) Medical times Branch daily. Polyethylen 2020-0 Yes [id number] 17g Take 1 [facility] e Glycol 1-16 Packet by ity of 3350 17 00:00: mouth [place] gram powder 00 every 24 Medi nicole (twenty-fo Branch ur) hours as needed for Constipati on. sodium 2020-0 Yes [id number] 1g Take 1 [facility] ers chloride 1 1-16 tablet by [facility] of gram tablet 00:00: mouth 4 [place] 00 (four) Medical times Branch daily. atenoloL 25 2020-0 Yes [id number] 25mg Take 1 [facility] mg tablet 1-16 tablet by ity o f 00:00: mouth 2 (two) Medical times Branch daily. doxazosin 4 2020-0 Yes [id number] 4mg Take 1 [facility] mg tablet 1-16 tablet by ity o f 00:00: mouth 2 (two) Medical times Branch daily. hydrALAZINE 2020-0 Yes [id number] 50mg Take 1 [facility] 50 mg 1-16 tablet by [facility] of tablet 00:00: mouth 3 (three) Medical times Branch daily. docusate 2021-0 Yes [id number] 100mg Take 1 [facility] 100 mg 1-16 capsule by [facility] of capsule 00:00: mouth 2 (two) Medical times Branch daily. Polyethylen 2020-0 Yes [id number] 17g Take 1 [facility] e Glycol 1-16 Packet by ity of 3350 17 00:00: mouth [place] gram powder 00 every 24 Medi nicole (twenty-fo Branch ur) hours as needed for Constipati on. sodium 2020-0 Yes [id number] 1g Take 1 [facility] ers chloride 1 1-16 tablet by [facility] of gram tablet 00:00: mouth 4 [place] 00 (four) Medical times [facility] daily. atenoloL 25 2020-0 Yes [id number] 25mg Take 1 [facility] mg tablet 1-16 tablet by ity o f 00:00: mouth 2 (two) Medical times Branch daily. doxazosin 4 2020-0 Yes [id number] 4mg Take 1 [facility] mg tablet 1-16 tablet by ity o f 00:00: mouth 2 (two) Medical times Branch daily. hydrALAZINE 2020-0 Yes [id number] 50mg Take 1 [facility] 50 mg 1-16 tablet by [facility] of tablet 00:00: mouth 3 (three) Medical times Branch daily. docusate 2020-0 Yes [id number] 100mg Take 1 [facility] 100 mg 1-16 capsule by [facility] of capsule 00:00: mouth 2 (two) Medical times Branch daily. Polyethylen 2020-0 Yes [id number] 17g Take 1 [facility] e Glycol 1-16 Packet by ity of 3350 17 00:00: mouth [place] gram powder 00 every 24 Medi nicole (twenty-fo Branch ur) hours as needed for Constipati on. sodium 2020-0 Yes [id number] 1g Take 1 [facility] ers chloride 1 1-16 tablet by [facility] of gram tablet 00:00: mouth 4 [place] 00 (four) Medical times [facility] daily. atenoloL 25 2020-0 Yes [id number] 25mg Take 1 [facility] mg tablet 1-16 tablet by ity o f 00:00: mouth 2 00 (two) Medical times Branch daily. doxazosin 4 2020-0 Yes [id number] 4mg Take 1 [facility] mg tablet 1-16 tablet by ity o f 00:00: mouth 2 (two) Medical times Branch daily. hydrALAZINE 1-0 Yes [id number] 50mg Take 1 [facility] 50 mg 1-16 tablet by [facility] of tablet 00:00: mouth 3 (three) Medical times Branch daily. docusate 2021-0 Yes [id number] 100mg Take 1 [facility] 100 mg 1-16 capsule by [facility] of capsule 00:00: mouth (two) Medical times Branch daily. Polyethylen 2020-0 Yes [id number] 17g Take 1 [facility] e Glycol 1-16 Packet by ity of 3350 17 00:00: mouth [place] gram powder 00 every 24 Medi nicole (twenty-fo Branch ur) hours as needed for Constipati on. sodium 2020-0 Yes [id number] 1g Take 1 [facility] ers chloride 1 1-16 tablet by [facility]y of gram tablet 00:00: mouth (four) Medical times Branch daily. atenoloL 25 2020-0 Yes [id number] 25mg Take 1 [facility] mg tablet 1-16 tablet by ity o f 00:00: mouth (two) Medical times Branch daily. doxazosin 4 2020-0 Yes [id number] 4mg Take 1 [facility] mg tablet 1-16 tablet by ity o f 00:00: mouth (two) Medical times Branch daily. hydrALAZINE 2020-0 Yes [id number] 50mg Take 1 [facility] 50 mg 1-16 tablet by [facility] of tablet 00:00: mouth (three) Medical times Branch daily. docusate 2020-0 Yes [id number] 100mg Take 1 [facility] 100 mg 1-16 capsule by [facility] of capsule 00:00: mouth (two) Medical times Branch daily. Polyethylen 2020-0 Yes [id number] 17g Take 1 [facility] e Glycol 1-16 Packet by ity of 3350 17 00:00: mouth [place] gram powder 00 every 24 Medi nicole (twenty-fo Branch ur) hours as needed for Constipati on. sodium 2020-0 Yes [id number] 1g Take 1 [facility] ers chloride 1 1-16 tablet by [facility] of gram tablet 00:00: mouth 4 [place] 00 (four) Medical times [facility] daily. atenoloL 25 2020-0 Yes [id number] 25mg Take 1 [facility] mg tablet 1-16 tablet by ity o f 00:00: mouth (two) Medical times Branch daily. doxazosin 4 2020-0 Yes [id number] 4mg Take 1 [facility] mg tablet 1-16 tablet by ity o f 00:00: mouth (two) Medical times Branch daily. hydrALAZINE 2020-0 Yes [id number] 50mg Take 1 [facility] 50 mg 1-16 tablet by [facility] of tablet 00:00: mouth (three) Medical times Branch daily. docusate 2020-0 Yes [id number] 100mg Take 1 [facility] 100 mg 1-16 capsule by [facility] of capsule 00:00: mouth (two) Medical times Branch daily. Polyethylen 2020-0 Yes [id number] 17g Take 1 [facility] e Glycol 1-16 Packet by ity of 3350 17 00:00: mouth [place] gram powder 00 every 24 Medi nicole (twenty-fo Branch ur) hours as needed for Constipati on. sodium 2020-0 Yes [id number] 1g Take 1 [facility] ers chloride 1 1-16 tablet by [facility] of gram tablet 00:00: mouth 4 [place] 00 (four) Medical times [facility] daily. atenoloL 25 2020-0 Yes [id number] 25mg Take 1 [facility] mg tablet 1-16 tablet by ity o f 00:00: mouth (two) Medical times Branch daily. doxazosin 4 2020-0 Yes [id number] 4mg Take 1 [facility] mg tablet 1-16 tablet by [facility]y o f 00:00: mouth (two) Medical times Branch daily. hydrALAZINE 2020-0 Yes [id number] 50mg Take 1 [facility] 50 mg 1-16 tablet by [facility] of tablet 00:00: mouth 3 (three) Medical times Branch daily. docusate 2020-0 Yes [id number] 100mg Take 1 [facility] 100 mg 1-16 capsule by [facility] of capsule 00:00: mouth (two) Medical times Branch daily. Polyethylen 2021-0 Yes [id number] 17g Take 1 [facility] e Glycol 1-16 Packet by [facility]y of 3350 17 00:00: mouth [place] gram powder 00 every 24 Medi nicole (twenty-fo Branch ur) hours as needed for Constipati on. docusate Yes 1{capsu Take 1 Meth luz [...] MG 24 hr 00 l tablet [facility]othyroxi 2017-[facility] (SYN[facility]ROID) 00[facility]00: [facility] 112 mcg 00 l tablet oxybutynin 2017-0 Yes THREE [facility] (DITROPAN) 4-[address] 5 MG tablet 00:00: DAY [facility] 00 l levothyroxi 2018-0 [facility] (SYNTHROID) 00:00: [facility] 112 mcg 00 l tablet oxybutynin 2017-0 Yes THREE [facility] (DITROPAN) 4-[address] 5 MG tablet 00:00: DAY [facility] 00 l levothyroxi 2017-0 Yes [facility] (SYNTHROID) 00:00: [facility] 112 mcg 00 l tablet oxybutynin 2018-0 Yes THREE [facility] (DITROPAN) 4-[address] 5 MG tablet 00:00: DAY [facility] 00 l levothyroxi 2018-0 Yes DAILY [facility] (SYNTHROID) 00:00: Hospit [facility] 112 mcg 00 l tablet oxybutynin 0 Yes THREE [facility] (DITROPAN) 4-[address] 5 MG tablet 00:00: DAY [facility] 00 l ipratropium 2017-0 Yes 3mL Q.5D Inhale 3 [facility] -albuteroL 4-07 mL 2 (two) st (DUO-NEB) 00:00: times a Hos[facility] 0.5-2.5 00 day as l mg/3 mL needed. nebulizer ipratropium 2017-0 Yes 3mL Q.5D Inhale 3 [facility] -albuteroL 4-07 mL 2 (two) st (DUO-NEB) 00:00: times a Hospi [facility] 0.5-2.5 00 day as l mg/3 mL needed. nebulizer ipratropium 2017-0 Yes 3mL Q.5D Inhale 3 [facility] -albuteroL 4-07 mL 2 (two) st (DUO-NEB) 00:00: times a Hospi ta 0.5-2.5 00 day as l mg/3 mL needed. nebulizer ipratropium 2017-0 Yes 3mL Q.5D Inhale 3 [facility] -albuteroL 4-07 mL 2 (two) st (DUO-NEB) 00:00: times a Hospi ta 0.5-2.5 00 day as l mg/3 mL needed. nebulizer Immunizations Ordered Filled Date Status Comments Source Immunization Name Immunization Name RADHA COVID-19 2020-11-04 Completed [facility] VACCINATION 00:00:[address] [facility] COVID-19 2020-11-04 Completed Method[facility] t MRNA VACCINATION 00:00:00 [facility] SARS-COV-2 COVID-19 2020-11-04 Completed Unive rsity of MODERNA 12+ YRS 00[facility]00:00 [facility] VACCINE Branch SARS-COV-2 COVID-19 2020-11-04 Completed Unive rsity of MODERNA 12+ YRS 00:00:00 [facility] ical VACCINE Branch SARS-COV-2 COVID-19 2020-11-04 Completed Unive rsity of MODERNA 12+ YRS 00:00:00 [facility] ical VACCINE [place] SARS-COV-2 COVID-19 2020-11-04 Completed Unive rsity of [...] Unive rsity of MODERNA VACCINE 00:00:00 [facility] ical Branch SARS-COV-2 COVID-19 2020-10-07 Completed Unive rsity of [place] VACCINE 00:00:00 [facility] ical Branch SARS-COV-2 COVID-19 2020-10-07 Completed Unive rsity of [place] VACCINE 00:00:00 [place] [facility] SARS-COV-2 COVID-19 2020-10-07 Completed Unive rsity of [place] VACCINE 00:00:00 [place] [facility] SARS-COV-2 COVID-19 2020-10-07 Completed Unive rsity of MODERNA VACCINE 00:00:00 [facility] ical Branch SARS-COV-2 COVID-19 2020-10-07 Completed Unive rsity of MODERNA VACCINE 00:00:00 [facility] ical Branch SARS-COV-2 COVID-19 2020-10-07 Completed Unive rsity of MODERNA 12+ YRS 00:00:00 [place] [facility] VACCINE [facility] SARS-COV-2 COVID-19 2020-10-07 Completed Unive rsity of MODERNA 12+ YRS 00:00:00 [facility] ical VACCINE Branch SARS-COV-2 COVID-19 2020-10-07 Completed Unive rsity of MODERNA 12+ YRS 00:00:00 [facility] ical VACCINE Branch SARS-COV-2 COVID-19 2020-10-07 Completed Unive rsity of MODERNA 12+ YRS 00:00:00 [facility] ical VACCINE Branch SARS-COV-2 COVID-19 2020-10-07 Completed Unive rsity of MODERNA 12+ YRS 00:00:00 [facility] ical VACCINE Branch SARS-COV-2 COVID-19 2020-10-07 Completed Unive rsity of MODERNA 12+ YRS 00:00:00 [facility] ical VACCINE Branch SARS-COV-2 COVID-19 2020-10-07 Completed Unive rsity of MODERNA 12+ YRS 00:00:00 [facility] VACCINE Branch Influenza High Dose 2020-04-23 Completed Unive rsity of 00:00:00 [facility] Influenza High Dose 2020-04-23 Completed Unive rsity of Quad 00:00:00 [facility] Influenza Virus 2020-04-23 Completed Universit y of Vaccine 00:00:00 [facility] Influenza High Dose 2020-04-23 Completed Unive rsity of 00:00:00 [facility] Influenza High Dose 2020-04-23 Completed Unive rsity of Quad 00:00:00 [facility] Influenza Virus 2020-04-23 Completed Universit y of Vaccine 00:00:00 [facility] Influenza High Dose 2020-04-23 Completed Unive rsity of 00:00:00 [facility] Influenza High Dose 2020-04-23 Completed Unive rsity of Quad 00:00:00 [facility] Influenza Virus 2020-04-23 Completed Universit y of Vaccine 00:00:00 [facility] Influenza High Dose 2020-04-23 Completed Unive rsity of 00:00:00 [facility] Influenza High Dose 2020-04-23 Completed Unive rsity of Quad 00:00:00 [facility] Influenza Virus 2020-04-23 Completed Universit y of Vaccine 00:00:00 [facility] Influenza High Dose 2020-04-23 Completed Unive rsity of 00:00:00 [facility] Influenza High Dose 2020-04-23 Completed Unive rsity of Quad 00:00:00 [facility] Influenza Virus 2020-04-23 Completed Universit y of Vaccine 00:00:00 [facility] Influenza High Dose 2020-04-23 Completed Unive rsity of 00:00:00 [facility] Influenza High Dose 2020-04-23 Completed Unive rsity of Quad 00:00:00 [facility] Influenza Virus 2020-04-23 Completed Universit y of Vaccine 00:00:00 [facility] Influenza High Dose 2020-04-23 Completed Unive rsity of 00:00:00 [facility] Influenza High Dose 2020-04-23 Completed Unive rsity of Quad 00:00:00 [facility] Influenza Virus 2020-04-23 Completed Universit y of Vaccine 00:00:00 [facility] Influenza High Dose 2020-04-23 Completed Unive rsity of 00:00:00 [facility] Influenza High Dose 2020-04-23 Completed Unive rsity of Quad 00:00:00 [facility] Influenza Virus 2020-04-23 Completed Universit y of Vaccine 00:00:00 [facility] Influenza High Dose 2020-04-23 Completed Unive rsity of 00:00:00 [facility] Influenza High Dose 2020-04-23 Completed Unive rsity of Quad 00:00:00 [facility] Influenza Virus 2020-04-23 Completed Universit y of Vaccine 00:00:00 [facility] Influenza High Dose 2020-04-23 Completed Unive rsity of 00:00:00 [facility] Influenza High Dose 2020-04-23 Completed Unive rsity of Quad 00:00:00 [facility] Influenza Virus 2020-04-23 Completed Universit y of Vaccine 00:00:00 [facility] Influenza High Dose 2020-04-23 Completed Unive rsity of 00:00:00 [facility] Influenza High Dose 2020-04-23 Completed Unive rsity of Quad 00:00:00 [facility] Influenza Virus 2020-04-23 Completed Universit y of Vaccine 00:00:00 [facility] Influenza High Dose 2020-04-23 Completed Unive rsity of 00:00:00 [facility] Influenza High Dose 2020-04-23 Completed Unive rsity of Quad 00:00:00 [facility] Influenza Virus 2020-04-23 Completed Universit y of Vaccine 00:00:00 [facility] Influenza High Dose 2020-04-23 Completed Unive rsity of 00:00:00 [facility] Influenza High Dose 2020-04-23 Completed Unive rsity of Quad 00:00:00 [facility] Influenza Virus 2020-04-23 Completed Universit y of Vaccine 00:00:00 [facility] Influenza High Dose 2020-04-23 Completed Unive rsity of 00:00:00 [facility] Influenza High Dose 2020-04-23 Completed Unive rsity of Quad 00:00:00 [facility] Influenza Virus 2020-04-23 Completed Universit y of Vaccine 00:00:00 [facility] Influenza High Dose 2020-04-23 Completed Unive rsity of 00:00:00 [facility] Influenza High Dose 2020-04-23 Completed Unive rsity of Quad 00:00:00 [facility] Influenza Virus 2020-04-23 Completed Universit y of Vaccine 00:00:00 [facility] Influenza High Dose 2020-04-23 Completed Unive rsity of 00:00:00 [facility] Influenza High Dose 2020-04-23 Completed Unive rsity of Quad 00:00:00 [facility] Influenza Virus 2020-04-23 Completed Universit y of Vaccine 00:00:00 [facility] Influenza High Dose 2020-04-23 Completed Unive rsity of 00:00:00 [facility] Influenza High Dose 2020-04-23 Completed Unive rsity of Quad 00:00:00 [facility] Influenza Virus 2020-04-23 Completed Universit y of Vaccine 00:00:00 [facility] Influenza High Dose 2020-04-23 Completed Unive rsity of 00:00:00 [facility] Influenza High Dose 2020-04-23 Completed Unive rsity of Quad 00:00:00 [facility] Influenza Virus 2020-04-23 Completed Universit y of Vaccine 00:00:00 [facility] Influenza High Dose 2019-05-02 Completed Unive rsity of 00:00:00 [facility] Influenza High Dose 2019-05-02 Completed Unive rsity of 00:00:00 [facility] Influenza High Dose 2019-05-02 Completed Unive rsity of 00:00:00 [facility] Influenza High Dose 2019-05-02 Completed Unive rsity of 00:00:00 [facility] Influenza High Dose 2019-05-02 Completed Unive rsity of 00:00:00 [facility] Influenza High Dose 2019-05-02 Completed Unive rsity of 00:00:00 [facility] Influenza High Dose 2019-05-02 Completed Unive rsity of 00:00:00 [facility] Influenza High Dose 2019-05-02 Completed Unive rsity of 00:00:00 [facility] Influenza High Dose 2019-05-02 Completed Unive rsity of 00:00:00 [facility] Influenza High Dose 2019-05-02 Completed Unive rsity of 00:00:00 [facility] Influenza High Dose 2019-05-02 Completed Unive rsity of 00:00:00 [facility] Influenza High Dose 2019-05-02 Completed Unive rsity of 00:00:00 [facility] Influenza High Dose 2019-05-02 Completed Unive rsity of 00:00:00 [facility] Influenza High Dose 2019-05-02 Completed Unive rsity of 00:00:00 [facility] Influenza High Dose 2019-05-02 Completed Unive rsity of 00:00:00 [facility] Influenza High Dose 2019-05-02 Completed Unive rsity of 00:00:00 [facility] Influenza High Dose 2019-05-02 Completed Unive rsity of 00:00:00 [facility] Influenza High Dose 2019-05-02 Completed Unive rsity of 00:00:00 [facility] Influenza High Dose 2016-04-20 Completed Unive rsity of 00:00:00 [facility] Influenza High Dose 2016-04-20 Completed Unive rsity of 00:00:00 [facility] Influenza High Dose 2016-04-20 Completed Unive rsity of 00:00:00 [facility] Influenza High Dose 2016-04-20 Completed Unive rsity of 00:00:00 [facility] Influenza High Dose 2016-04-20 Completed Unive rsity of 00:00:00 [facility] Influenza High Dose 2016-04-20 Completed Unive rsity of 00:00:00 [facility] Influenza High Dose 2016-04-20 Completed Unive rsity of 00:00:00 [facility] Influenza High Dose 2016-04-20 Completed Unive rsity of 00:00:00 [facility] Influenza High Dose 2016-04-20 Completed Unive rsity of 00:00:00 [facility] Influenza High Dose 2016-04-20 Completed Unive rsity of 00:00:00 [facility] Influenza High Dose 2016-04-20 Completed Unive rsity of 00:00:00 [facility] Influenza High Dose 2016-04-20 Completed Unive rsity of 00:00:00 [facility] Influenza High Dose 2016-04-20 Completed Unive rsity of 00:00:00 [facility] Influenza High Dose 2016-04-20 Completed Unive rsity of 00:00:00 [facility] Influenza High Dose 2016-04-20 Completed Unive rsity of 00:00:00 [facility] Influenza High Dose 2016-04-20 Completed Unive rsity of 00:00:00 [facility] Influenza High Dose 2016-04-20 Completed Unive rsity of 00:00:00 [facility] Influenza High Dose 2016-04-20 Completed Unive rsity of 00:00:00 [facility] COVID19 Unknown [facility] [place] [address] Unknown Com[facility] [place] [address] Unknown Com[facility] [place] [address] Unknown Com[facility] Vital Signs Vital Name Observation Time Observation Value Comments Source Systolic blood 2022-10-19 16:46:00 120 mm[Hg] Univer sity of pressure [facility] Diastolic blood 2022-10-19 16:46:00 62 mm[Hg] Unive rsity of pressure [facility] Heart rate 2022-10-19 16:46:00 86 /min [facility] Body height 2022-10-19 16:46:00 165.1 cm [facility] Body weight 2022-10-19 16:46:00 72.122 kg [facility] BMI 2022-10-19 16:46:00 26.46 kg/m2 [facility] Oxygen saturation in 2022-10-19 16:46:00 96 /min [facility] Arterial blood by [facility] Pulse oximetry Branch Systolic blood 2022-08-03 17:10:00 118 mm[Hg] Univer sity of pressure [facility] Diastolic blood 2022-08-03 17:10:00 68 mm[Hg] Unive rsity of pressure [facility] Heart rate 2022-08-03 17:10:00 60 /min [facility] Respiratory rate 2022-08-03 17:10:00 17 /min Univ ersity [facility] Body weight 2022-08-03 17:10:00 75.751 kg per pt [facility] BMI 2022-08-03 17:10:00 27.79 kg/m2 [facility] Oxygen saturation in 2022-08-03 17:10:00 94 /min University of Arterial blood by [facility] Pulse oximetry Branch Systolic blood 2022-06-01 15:25:00 109 mm[Hg] Univer sity of pressure [facility] Diastolic blood 2022-06-01 15:25:00 70 mm[Hg] Unive rsity of pressure [facility] Heart rate 2022-06-01 15:25:00 76 /min [facility] Body height 2022-06-01 15:25:00 165.1 cm [facility] Body weight 2022-06-01 15:25:00 74.844 kg [facility] BMI 2022-06-01 15:25:00 27.46 kg/m2 [facility] Oxygen saturation in 2022-06-01 15:25:00 94 /min University of Arterial blood by [facility] Pulse oximetry Branch Systolic blood 2022-03-02 14:12:00 146 mm[Hg] Univer sity of pressure [facility] Diastolic blood 2022-03-02 14:12:00 64 mm[Hg] Unive rsity of pressure [facility] Heart rate 2022-03-02 14:12:00 76 /min [facility] Respiratory rate 2022-03-02 14:08:00 22 /min Univ ers[facility] Body height 2022-03-02 14:08:00 165.1 cm [facility] Body weight 2022-03-02 14:08:00 86.637 kg [facility] BMI 2022-03-02 14:08:00 31.78 kg/m2 [facility] Oxygen saturation in 2022-03-02 14:08:00 95 /min University of Arterial blood by [facility] Pulse oximetry Branch Procedures Procedure Date / Time Performing Clinician Source Performed DME/SUPPLY JUSTIFICATION 2023-01-09 05:01:00 Doctor Unassigned, No [facility] PATIENT FINANCIAL 2022-10-19 16:42:30 Doctor Unassigned, No [facility] CT THORAX WO CONTRAST 2022-06-27 18:53:00 Sailaja Taylor [facility] ASSIGNMENT OF BENEFITS 2022-06-27 18:14:47 Doctor Unassigned, No [facility] XR CHEST 2 VW 2022-03-02 15:57:42 Diana Taylorcolatosha [place] [facility] Plan of Care Planned Activity Planned Date Details Comments Source Future Scheduled 2023-04-09 65+ PNEUMOCOCCAL [facility] Test 02:06:22 VACCINE (1 - PCV) [code = 65+ PNEUMOCOCCAL VACCINE (1 - PCV)] Future Scheduled 2023-04-09 SHINGLES VACCINES (1 [facility] Test 02:06:22 of 2) [code = SHINGLES VACCINES (1 of 2)] Future Scheduled 2023-04-09 COVID-19 VACCINE (3 - Me [facility] Test 02:06:22 Moderna series) [code = COVID-19 VACCINE (3 - Moderna series)] Future Scheduled 2023-04-09 INFLUENZA VACCINE (#1) [facility] Test 02:06:22 [code = INFLUENZA VACCINE (#1)] Future Scheduled 2023-04-09 65+ [facility] VACCINE (1 - PCV) [code = 65+ PNEUMOCOCCAL VACCINE (1 - PCV)] Future Scheduled 2023-04-09 SHINGLES VACCINES (1 [facility] Test 02:06:22 of 2) [code = SHINGLES VACCINES (1 of 2)] Future Scheduled 2023-04-09 COVID-19 VACCINE (3 - Me [facility] Test 02:06:22 Moderna series) [code = COVID-19 VACCINE (3 - Moderna series)] Future Scheduled 2023-04-09 INFLUENZA VACCINE (#1) [facility] Test 02:06:22 [code = INFLUENZA VACCINE (#1)] Future Scheduled 2022-08-31 65+ [facility]OCOCCAL [facility] Test 07:49:58 VACCINE (1 - PCV) [code = 65+ PNEUMOCOCCAL VACCINE (1 - PCV)] Future Scheduled 2022-08-31 SHINGLES VACCINES (1 [facility] Test 07:49:58 of 2) [code = SHINGLES VACCINES (1 of 2)] Future Scheduled 2022-08-31 COVID-19 VACCINE (3 - Me [facility] Test 07:49:58 Booster for Moderna series) [code = COVID-19 VACCINE (3 - Booster for Moderna series)] Future Scheduled 2022-08-31 INFLUENZA VACCINE [facility] Test 07:49:58 [code = INFLUENZA VACCINE] Future Scheduled 2022-06-09 HEPATITIS B VACCINES [facility] Test 08:53:03 (1 of 3 - 3-dose series) [code = HEPATITIS B VACCINES (1 of 3 - 3-dose series)] Future Scheduled 2022-06-09 65+ [facility] 08:53:03 VACCINE (1 - PCV) [code = 65+ PNEUMOCOCCAL VACCINE (1 - PCV)] Future Scheduled 2022-06-09 SHINGLES VACCINES (1 [facility] Test 08:53:03 of 2) [code = SHINGLES VACCINES (1 of 2)] Future Scheduled 2022-06-09 COVID-19 VACCINE (3 - Me [facility] Test 08:53:03 Booster for Moderna series) [code = COVID-19 VACCINE (3 - Booster for Moderna series)] Future Scheduled 2022-06-09 INFLUENZA VACCINE Method [facility] Test 08:53:03 [code = INFLUENZA VACCINE] Encounters Start End Encounter Admission Attending Care Care Encounter Source Date/Time Date/Time Type Type Clinicians Facility Department ID 2021-09-08 Outpatient MARIA G CUMMINS [id number] 18:32:32 Anderso n 2021-09-08 Outpatient MARIA G CUMMINS [id number] 18:32:31 Anderso n 2021-09-08 Outpatient MARIA G CUMMINS [id number] 18:32:31 Anderso n 2020-07-16 Inpatient OUMOU Navarrete [id number] [facility] 10:30:[address] 2023-01-09 2023-01-09 Orders Doctor ESTELLE [id number] Univers 00:00:00 00:00:00 Only Unassigned, NICOLAS [id number] ity of [place] [facility] [id number] Steven as [id number] [address] 2022-10-19 2022-10-19 Outpatient R SAILAJA TAYLOR [facility] 10 [id number] Univers 11:30:00 12:07:03 SAILAJA TAYLOR i ty of [facility] 2022-10-19 2022-10-19 [facility] [id number] Univers 11:30:00 12:07:03 Visit Sailaja LAWS [id number] i ty [id number] [id number] Fl dical NAL [address] [place] [address] 2022-10-19 2022-10-19 Orders Doctor MCCABE [id number] Univers 00:00:00 00:00:00 Only Unassigned, NICOLAS [id number] ity of [place] [facility] [id number] Steven as [id number] [address] 2022-08-03 2022-08-03 Outpatient R SAILAJA TAYLOR [facility] 10 [id number] Univers 10:30:00 11:39:05 SAILAJA TAYLOR i ty [facility] 2022-08-03 2022-08-03 [facility] [id number] Univers 10:30:00 11:39:05 Visit Sailaja LAWS [id number] i ty [id number] [id number] Fl dical NAL [address] [place] [address] 2022-06-27 2022-06-27 Outpatient R SAILAJA TAYLOR [facility] 10 [id number] Univers 12:15:44 23:59:00 SAILAJA TAYLOR i ty of [facility] 2022-06-27 2022-06-27 [facility] [id number] Univers 12:15:44 23:59:00 Encounter Sailaja LAWS [id number] [id number] [id number] [facility] [address] 2022-06-27 2022-06-27 Orders Doctor ESTELLE [id number] Univers 00:00:00 00:00:00 Only Unassigned, NICOLAS [id number] ity of [place] [facility] [id number] Steven as [phone] [facility] 00[address] Branch 2022-06-26 2022-06-26 Outpatient R SAILAJA TAYLOR [facility] 10 [id number] Univers 10:30:00 10:30:00 SAILAJA TAYLOR i ty of [facility] 2022-06-01 2022-06-01 Outpatient R SAILAJA TAYLOR [facility] 10 [id number] Univers 10:00:00 10:47:03 SAILAJA TAYLOR i ty of [facility] 2022-06-01 2022-06-01 [facility] [id number] Univers 10:00:00 10:47:03 Visit Sailaja LAWS [id number] i ty [id number] [id number] Fl dical NAL 0[address] [facility] 2022-05-30 2022-05-30 Outpatient R SAILAJA TAYLOR [facility] 10 [id number] Univers 10:00:00 10:00:00 SAILAJA TAYLOR i ty of [facility] 2022-05-19 2022-05-19 Refill Conor [facility] [id number] Univers 00:00:00 00:00:00 Sailaja LAWS [id number] i ty of [id number] [id number] Fl dical NAL 085 [facility] 2022-03-20 2022-03-20 Telephone Conor [facility] [id number] Univers 00:00:00 00:00:00 Sailaja LAWS [id number] i ty [id number] [id number] [address] 2022-03-06 2022-03-06 [facility] [id number] Univers 00:00:00 00:00:00 Shicrispinn EUSBEIA [id number] i ty of [id number] [id number] [address] 2022-03-03 2022-03-03 [facility] [id number] Univers 00:00:00 00:00:00 Shicrispinn EUSEBIA [id number] i ty [id number] [id number] [address] 2022-03-02 2022-03-02 Outpatient R SAILAJA TAYLOR [facility] 10 [id number] Univers 10:42:53 23:59:00 SAILAJA TAYLOR i ty of [facility] 2022-03-02 2022-03-02 [facility] [id number] Univers 10:42:53 23:59:00 Encounter Sailaja LAWS [id number] [facility] [id number] [id number] [facility] [address] [place] 2022-03-02 2022-03-02 [facility] [id number] Univers 09:00:00 09:30:00 Visit Dianamichelle EUSEBIA [id number] i ty [id number] [id number] [address] 2022-03-02 2022-03-02 Outpatient R SAILAJA TAYLOR [facility] 10 [id number] Univers 09:00:00 09:00:00 SAILAJA TAYLOR i ty of [facility] 2022-03-01 2022-03-01 [facility] [id number] Univers 00:00:00 00:00:00 Sailaja LAWS [id number] i ty of [id number] [id number] [address] 2022-02-15 2022-02-15 [facility] [id number] Univers 00:00:00 00:00:00 Sailaja LAWS [id number] i ty [id number] [id number] [address] 2021-12-15 2021-12-15 Outpatient R SAILAJA TAYLOR [facility] 10 [id number] Univers 11:30:00 12:32:47 SAILAJA TAYLOR i ty of [facility] 2021-12-15 2021-12-15 [facility] [id number] Univers 11:30:00 12:32:47 Visit Sailaja LAWS [id number] i ty [id number] [id number] [address] 2021-12-15 2021-12-15 Outpatient R SAILAJA TAYLOR [facility] 10 [id number] Univers 11:30:00 11:30:00 SAILAJA TAYLOR i ty of [facility] 2021-09-27 2021-09-27 Orders Doctor MCCABE [id number] Univers 00:00:00 00:00:00 Only Unassigned, NICOLAS [id number] ity of [place] [facility] [id number] Steven as [id number] [address] 2021-09-13 2021-09-13 Outpatient R SAILAJA TAYLOR [facility] 10 [id number] Univers 10:30:00 11:12:20 SAILAJA TAYLOR i ty of [facility] 2021-09-13 2021-09-13 [facility] [id number] Univers 10:30:00 11:12:20 Visit Sailaja LAWS [id number] i ty of [id number] [id number] [address] 2021-06-28 2021-06-28 Telephone QUINN Taylor [id number] Univers 00:00:00 00:00:00 Sailaja LAWS [id number] i ty [place] [id number] [id number] [address] 2021-06-16 2021-06-16 Outpatient R SAILAJA TAYLOR [facility] 10 [id number] Univers 10:30:00 10:51:23 SAILAJA TAYLOR i ty of [facility] 2021-06-16 2021-06-16 Outpatient R SAILAJA TAYLOR [facility] 10 [id number] Univers 10:30:00 10:51:23 SAILAJA TAYLOR i ty of [facility] 2021-06-16 2021-06-16 Office Conor AKMARK [id number] Univers 09:51:46 10:51:23 Visit Sailaja LAWS [id number] i ty of [id number] [id number] [address] 2021-06-16 2021-06-16 Orders Doctor ESTELLE [id number] Univers 00:00:00 00:00:00 Only Unassigned, NICOLAS [id number] ity of [place] [facility] [id number] Steven as [id number] [address] 2021-06-13 2021-06-13 Telephone Conor AKMARK [id number] Univers 00:00:00 00:00:00 Sailaja LAWS [id number] i ty of [id number] [id number] [address] 2021-04-12 2021-04-12 Outpatient [facility] [id number] [place] 00:00:00 00:00:[address] 2021-03-22 2021-03-22 Outpatient [facility] [id number] [place] 00:00:00 00:00:[address] 2021-02-24 2021-02-24 Outpatient BRITT, GORDON [facility] 021 [id number] [place] 00:00:00 00:00:[address] 2021-02-22 2021-02-22 Outpatient BRITT, GORDON [facility] [id number] [place] 00:00:00 00:00:[address] 2021-02-22 2021-02-22 Outpatient BRITT, [facility] [id number] [place] 00:00:00 00:00:[address] 2021-02-22 2021-02-22 Outpatient BRITT, GORDON [facility] [id number] [place] 00:00:00 00:00:[address] 2020-12-21 2020-12-21 Outpatient BRITT, GORDON [facility] [id number] [place] 00:00:00 00:00:[address] 2020-09-10 2020-09-10 Transition Edenilson Bowman [id number] 00:00:00 00:00:00 of Care Padmini Gifford [id number] [place] [id number] 2020-08-26 2020-09-09 [facility] Papo Hernandez [facility] [id number] 15:48:00 18:10:00 Encounter Foster Gama [id number] [place] [id number] [place] [id number] 2020-08-26 2020-09-09 Inpatient X LANETTE AKMARK [facility] [id number] Univers 15:48:00 18:10:00 FOSTER biggs [facility] 2020-08-24 2020-08-24 Transition Edenilson Bowman [id number] 00:00:00 00:00:00 of Care Padmini Gifford [id number] [place] [id number] 2020-08-10 2020-08-21 Hospital Arleen Sheets [facility] 1.2.840.1 [id number] 17:07:00 17:50:00 Encounter Mary Vieira on [id number] [place] [id number] [place] [id number] 2020-08-10 2020-08-21 Inpatient X DARIEL, [facility] ADRIAN [id number] Univers 17:07:00 17:50:00 [facility] Results Test Description Test Time Test Comments Results Result Comments Source Novel Coronavirus 2018 Inhouse 2020-07-16 05:22:00 Test Item Value Reference Range Interpretation Comme nts Novel Coronavirus 2018 Negative Negative Posit demarco results are indicative of the Inhouse (test code = presenc e [id number] RNA, clinical COVNONPUI) correlation wit h patient [...] the identification of SARS-CoV-2 RNA usingthe [employer] M2000 System under th e FDA Emergency UseAuthorizatio n. The testing is performed by ceferino rsonneltrained in the procedures for the [employer]ce M2000 moleculardiagno stic SARS-CoV-2 assay in vitro. PROTHROMBIN [id number] 15:53:00 Test Item Value Reference Range Interpretation [...] Infarction (to prevent recurrent infar ct). PROTHROMBIN [id number] 15:48:00 Test Item Value Reference Range Interpretation [...] (to prevent recurrent infar ct). BASIC METABOLIC [id number] 15:45:00 Test Item Value Reference Range Interpretation [...] 9.1 mg/dL 8.0-10.5 N CA) CBC W/AUTO [id number] 15:36:00 Test Item Value Reference Range Interpretation [...]
[2023-05-11] MEDS ORDERED: NA CHLORIDE 0.9% 500 ML ONE (11:49)
[2023-05-11 11:57] LABS: Absolute Lymphocytes (CBC) 0.9 K/uL (0.7-4.9); Hematocrit 28.1 % (36.0-45.0); MCV 102.5 fL (80-100); MPV 8.7 fL (7.6-11.3); Platelets 148 thou/uL (152-406); RBC Red Blood Cell Count 2.74 M/uL (3.86-4.86)
[2023-05-11 11:58] LABS: Protime INR 1.23
[2023-05-11 12:11] LABS: ALT/SGPT < 6 U/L (13-56); AST/SGOT 18 U/L (15-37); Albumin 2.7 g/dL (3.4-5.0); Alkaline Phosphatase 65 U/L (45-117); BUN Blood Urea Nitrogen 30 mg/dL (7-18); Bicarbonate 25 mEq/L (21-32); Bilirubin Total 0.3 mg/dL (0.2-1.0); Glomerular Filtration Rate 9 ml/min (=/>90); Glucose Level 109 mg/dL (74-106); Lipase 21 U/L (13-75); Potassium 4.5 mEq/L (3.5-5.1); Protein, Total 6.6 g/dL (6.4-8.2); Sodium Level 131 mEq/L (136-145)
[2023-05-11 13:58] LABS: Specific Gravity 1.009 (1.005-1.030); Urine Bacteria >50 /HPF (<20); Urine Bilirubin NEGATIVE (Negative); Urine Blood 2+ (Negative); Urine Clarity Extremely Turbid (Clear); Urine Color Light-Orange (Yellow); Urine Glucose NEGATIVE (Negative); Urine Protein 1+ (Negative); Urine RBC >50 /HPF (None Seen); Urine Urobilinogen Normal (Normal); Urine WBC Clump Many /HPF (None Seen); Urine Yeast with Hyphae Few /HPF (None Seen); Urine pH 5.5 (5.0-7.0)
[2023-05-11] MEDS ORDERED: CIPROFLOXACIN 400mg IV 400 MG/200 ML BAG IV ONE (13:59)
--- NOTE | 2023-05-11 14:12 | EDPHYS ---
Physician Documentation [facility] Name: Maura Harris Age: 82 yrs Sex: Female : 1940 Arrival Date: 05/11/2023 Time: 10:33 Bed 11 Private MD: Vineet Guerra ED Physician Ministerio Lemons HPI: 05/11 10:50 This 82 yrs old Female presents to ER via Wheelchair with complaints of Vaginal jh7 Bleeding, Rectal Bleeding. 10:50 82-year-old female discharged from inpatient yesterday for sepsis and proctitis. She jh7 reports that she has had increasing urinary retention since yesterday and that it anderson when she urinates. Reports that she believes she is having both rectal and vaginal bleeding as well as passing clots. Denies fever, but reports increasing weakness and back pain.. Historical: - Allergies: 10:50 Baclofen; hb 10:50 cefepime; hb 10:50 Compazine; hb 10:50 Demerol; hb 10:50 Ibuprofen; hb 10:50 Iodine; hb 10:50 Macrobid; hb 10:50 Ondansetron HCl; hb 10:50 prochlorperazine Edisylate; hb 10:50 Vancomycin; hb - PMHx: 10:50 COPD; GERD; Hypertension; Hypothyroidism; kidney disease; lymphedema; retained hb cholelithiasis; - Immunization history:: Adult Immunizations up to date. - Social history:: Smoking status: Patient denies any tobacco usage or history of. ROS: 10:50 ENT: Negative for injury, pain, and discharge, Neck: Negative for injury, pain, and jh7 swelling, Cardiovascular: Negative for chest pain, palpitations, and edema, Respiratory: Negative for shortness of breath, cough, wheezing, and pleuritic chest pain, 10:50 MS/Extremity: Negative for injury and deformity, Skin: Negative for injury, rash, and discoloration, Neuro: Negative for headache, weakness, numbness, tingling, and seizure, 10:50 Constitutional: Positive for malaise, 10:50 Abdomen/GI: Positive for rectal bleeding, 10:50 Back: Positive for pain at rest, 10:50 : Positive for urinary symptoms, flank pain, hematuria, burning with urination, 10:50 All other systems are negative, Exam: 10:50 Head/Face: Normocephalic, atraumatic. Eyes: Pupils equal round and reactive to light, jh7 extra-ocular motions intact. Lids and lashes normal. Conjunctiva and sclera are non-icteric and not injected. Cornea within normal limits. Periorbital areas with no swelling, redness, or edema. Neck: Trachea midline, no thyromegaly or masses palpated, and no cervical lymphadenopathy. Supple, full range of motion without nuchal rigidity, or vertebral point tenderness. No Meningismus. Cardiovascular: Regular rate and rhythm with a normal S1 and S2. No gallops, murmurs, or rubs. Normal PMI, no JVD. No pulse deficits. Respiratory: Lungs have equal breath sounds bilaterally, clear to auscultation and percussion. No rales, rhonchi or wheezes noted. No increased work of breathing, no retractions or nasal flaring. 10:50 Skin: Warm, dry with normal turgor. Normal color with no rashes, no lesions, and no evidence of cellulitis. MS/ Extremity: Pulses equal, no cyanosis. Neurovascular intact. Full, normal range of motion. Neuro: Awake and alert, GCS 15, oriented to person, place, time, and situation. Motor strength 5/5 in all extremities. Sensory grossly intact. 10:50 Constitutional: The patient appears alert, awake, in obvious pain, uncomfortable, 10:50 Abdomen/GI: Inspection: abdomen appears normal, Bowel sounds: normal, Palpation: soft, mild abdominal tenderness, in the suprapubic area, 10:50 : CVA tenderness, noted bilaterally, Pelvic Exam: External exam: is normal, Bladder: tenderness, that is mild, Rectal exam: is normal, Stool: brown, no bleeding noted, 14:00 : a smith is noted, urine is cloudy, Pyuria and hematuria, jh7 Vital Signs: 10:47 BP 146 / 88; Pulse 55; Resp 16; Temp 98.1(TE); Pulse Ox 97% on R/A; Weight 72.57 kg; hb Height 5 ft. 4 in. ; Pain 8/10; 13:50 BP 111 / 76; Pulse 90; Resp 18; Pulse Ox 100% on R/A; ap3 17:26 BP 165 / 61; Pulse 58; Pulse Ox 100% on R/A; ap3 10:47 Body Mass Index 27.46 (72.57 kg, 162.56 cm) hb 10:47 Pain Scale: Adult hb MDM: 10:51 Patient medically screened. [facility] 15:00 ED course: Hospitalist declined admit and advised urology consult due to complicated jh7 UTI and additional imaging required. Due to not having urology on-call, will transfer for higher level of care.. 15:00 Differential diagnosis: urinary tract infection, Colovesical fistula, pyelonephritis, jh7 hematuria. Data reviewed: vital signs, nurses notes, lab test result(s), radiologic studies, CT scan. Consideration of Admission/Observation transferred to another facility. Management of patient was discussed with the following: Hospitalist: Dr. Amaya. Dr. Pierce, hospitalist at [facility]. I considered the following discharge prescriptions or medication management in the emergency department Medications were administered in the Emergency Department. See MAR. Historians other than the Patient: Spouse/Significant Other: . Care significantly affected by the following chronic conditions: Hypertension, Chronic Obstructive Pulmonary Disease, Chronic Kidney Disease. Counseling: I had a detailed discussion with the patient and/or guardian regarding the historical points, exam findings, and any diagnostic results supporting the discharge/admit diagnosis, the need to transfer to another facility, for higher level of care, [facility] does not immediately have the required specialist. Response to treatment: the patient's symptoms have mildly improved after treatment. ED course: Informed Dr. Pierce that the patient was due to have dialysis today and has not received it yet. Also informed him that we texted Dr. Hernandez who recommended a poppyseed test to rule out a colovesical fistula.. 05/11 10:57 Order name: CBC with Diff; Complete Time: 12:49 [facility] 05/11 10:57 Order name: CMP; Complete Time: 12:49 [facility] 05/11 10:57 Order name: Lipase; Complete Time: 12:49 [facility] 05/11 10:57 Order name: Type And Screen; Complete Time: 13:12 [facility] 05/11 10:57 Order name: PT-INR; Complete Time: 12:49 [facility] 05/11 10:57 Order name: Urinalysis W/Microscopic; Complete Time: 14:08 [facility] 05/11 11:00 Order name: Blood Culture Adult (2) [facility] 05/11 11:00 Order name: Lactate w/ 2H reflex if indic.; Complete Time: 12:49 [facility] 05/11 14:01 Order name: Urine Culture EDMS 05/11 14:24 Order name: CT Abd/Pelvis - Without Contrast; Complete Time: 15:22 [facility] 05/11 10:57 Order name: IV Saline Lock; Complete Time: 11:44 [facility] 05/11 10:57 Order name: Labs collected and sent; Complete Time: 11:44 [facility] 05/11 11:00 Order name: EKG - Nurse/Tech; Complete Time: 12:22 [facility] 05/11 13:43 Order name: Smith; Complete Time: 13:44 [facility] EC:20 Rate is 51 beats/min. Rhythm is regular. QRS Harper is Normal. RI interval is normal at 7 200 msec. QRS interval is normal at 102 msec. QT interval is normal at 478 msec. No Q waves. T waves are Normal. No ST changes noted. Clinical impression: Sinus bradycardia. Administered Medications: 11:41 Drug: NS 0.9% IV 500 ml IV at bolus once Route: IV; Rate: bolus; Site: left antecubital;ap3 18:53 Follow up: IV Status: Completed infusion ap3 13:47 Drug: Ciprofloxacin IVPB 400 mg 200 ml IVPB once over 60 mins Volume: 200 ml; Route: ap3 IVPB; Infused Over: 60 mins; Site: left antecubital; 18:53 Follow up: IV Status: Completed infusion ap3 17:27 Drug: fentaNYL (PF) IVP 25 mcg IVP once Route: IVP; Site: left antecubital; ap3 18:53 Follow up: Response: No adverse reaction ap3 Disposition: 05/12 07:05 Co-signature as Attending Physician, Ministerio Lemons MD I reviewed the patient's care rt provided by the Advanced Practice Provider and agree with the diagnosis and treatment plan. Disposition Summary: 05/11/23 17:46 Transfer Ordered Notes: [facility] jh7 Reason: Higher level of care(05/11/23 17:46) jh7 Condition: Stable(05/11/23 17:46) jh7 Problem: new(05/11/23 17:46) jh7 Symptoms: have worsened(05/11/23 17:46) [facility] Accepting Physician: Dr. Pierce(05/11/23 18:54) lis Diagnosis - Acute cystitis with hematuria(05/11/23 17:46) [facility] Forms: - Medication Reconciliation Form [facility] - SBAR form [facility] Signatures: Dispatcher [employer] EDGaurav Awad MD MD rn Baxter, Heather, RN RN Yoanna Quigley RN RN ap3 Erum Masters FNP SKEINS YARN EXAMINER [facility] Ministerio Lemons MD MD rt Corrections: (The following items were deleted from the chart) 05/11 15:56 14:11 Inpatient Admission [place] [id number] 15:56 14:11 Jose Amaya [place] [address] 15:56 14:11 Telemetry/MedSurg (Inpatient) [place] [address] 15:56 14:11 Fair [place] [address] 15:56 14:11 [place] [address] 15:56 14:11 have worsened [place] [address] 15:56 14:11 Standard [place] [address] 15:56 14:11 [place] [address] 15:56 14:11 UTI/ Urinary tract infection, site not specified [place] [address] 16:23 15:57 accepting [place] [address] 16:23 15:57 Other Acute Care Facility [place] [address] 16:23 15:57 Higher level of care [place] [address] 16:23 15:57 Stable [place] [address] 16:23 15:57 [place] [address] 16:23 15:57 have worsened [place] [address] 16:23 15:57 Acute cystitis with hematuria [place] [address] 17:46 16:26 Inpatient Admission [place] [address] 17:46 16:26 Jose Amaya [place] [address] 17:46 16:26 Telemetry/MedSurg (Inpatient) [place] [address] 17:46 16:26 Fair [place] [address] 17:46 16:26 [place] [address] 17:46 16:26 have worsened [place] [address] 17:46 16:26 Standard [place] [address] 17:46 16:26 [place] [address] 17:46 16:26 Acute cystitis with hematuria [place] [address] 18:45 17:46 Dr. Robertson [place] [address] 18:54 18:45 Dr. Piecre jh7 ap3
--- NOTE | 2023-05-11 14:12 | ER ---
Nurse's Notes [facility] Name: Maura Harris Age: 82 yrs Sex: Female : 1940 Arrival Date: 05/11/2023 Time: 10:33 Bed 11 Private MD: Vineet Guerra Diagnosis: Acute cystitis with hematuria Presentation: 05/11 10:47 Chief complaint: Sent by Dr. Tamez for bright red vaginal and rectal bleeding since last night. Recently inpatient for sepsis and proctitis, discharged home yesterday. Coronavirus screen: At this time, the client does not indicate any symptoms associated with coronavirus-19. Ebola Screen: No symptoms or risks identified at this time. Initial Sepsis Screen: Does the patient meet any 2 criteria? No. Patient's initial sepsis screen is negative. Does the patient have a suspected source of infection? No. Patient's initial sepsis screen is negative. Risk Assessment: Do you want to hurt yourself or someone else? Patient reports no desire to harm self or others. Onset of symptoms was May 10, 2023. 10:47 Method Of Arrival: Wheelchair hb 10:47 Acuity: ELICIA 3 hb Triage Assessment: 13:41 : Reports vaginal bleeding that is none noted during exam with provider. ap3 17:27 General: Appears uncomfortable. ap3 18:41 General: Behavior is calm, cooperative. ap3 Historical: - Allergies: 10:50 Baclofen; hb 10:50 cefepime; hb 10:50 Compazine; hb 10:50 Demerol; hb 10:50 Ibuprofen; hb 10:50 Iodine; hb 10:50 Macrobid; hb 10:50 Ondansetron HCl; hb 10:50 prochlorperazine Edisylate; hb 10:50 Vancomycin; hb - PMHx: 10:50 COPD; GERD; Hypertension; Hypothyroidism; kidney disease; lymphedema; retained hb cholelithiasis; - Immunization history:: Adult Immunizations up to date. - Social history:: Smoking status: Patient denies any tobacco usage or history of. Screenin:40 Abuse screen: Denies threats or abuse. Nutritional screening: No deficits noted. ap3 Tuberculosis screening: No symptoms or risk factors identified. 13:53 [facility] ED Fall Risk Assessment (Adult) History of falling in the last 3 months, ap3 including since admission Yes- single mechanical fall (1 pt) Confusion or Disorientation No (0 pts) Intoxicated or Sedated No (0 pts) Impaired Gait Yes (1 pt) Mobility Assist Device Used Yes (1 pt) Altered Elimination Yes (1 pt). Assessment: 13:41 Pain: Denies pain. Neuro: Level of Consciousness is awake, alert, obeys commands, ap3 Oriented to person, place, time, situation. Cardiovascular: Patient's skin is warm and dry. Respiratory: Airway is patent Respiratory effort is even, unlabored, Respiratory pattern is regular, symmetrical. : Urine is cloudy. 17:27 Reassessment: Patient and/or family updated on plan of care and expected duration. Pain ap3 level reassessed. Patient is alert, oriented x 3, equal unlabored respirations, skin warm/dry/pink. 18:40 Reassessment: EMS at the bedside receiving report. ap3 Vital Signs: 10:47 BP 146 / 88; Pulse 55; Resp 16; Temp 98.1(TE); Pulse Ox 97% on R/A; Weight 72.57 kg; hb Height 5 ft. 4 in. ; Pain 8/10; 13:50 BP 111 / 76; Pulse 90; Resp 18; Pulse Ox 100% on R/A; ap3 17:26 BP 165 / 61; Pulse 58; Pulse Ox 100% on R/A; ap3 10:47 Body Mass Index 27.46 (72.57 kg, 162.56 cm) hb 10:47 Pain Scale: Adult hb ED Course: 10:36 Patient arrived in ED. rg4 10:36 Vineet Guerra MD is Private Physician. rg4 10:50 Triage completed. hb 10:51 [facility] jh7 10:51 Ministerio Lemons MD is Attending Physician. jh7 10:51 Arm band placed on. hb 11:25 Yoanna Quigley, HADLEY is Primary Nurse. ap3 11:44 Lactate w/ 2H reflex if indic. Sent. bc6 11:44 Blood Culture Adult (2) Sent. bc6 11:44 PT-INR Sent. bc6 11:44 CBC with Diff Sent. bc6 11:44 CMP Sent. bc6 11:44 Lipase Sent. bc6 11:44 Inserted saline lock: 20 gauge in left antecubital area, using aseptic technique. Blood bc6 collected. 12:12 Type And Screen Sent. ap3 12:12 Blood Culture Adult (2) Sent. ap3 13:41 Patient has correct armband on for positive identification. Bed in low position. Call ap3 light in reach. Side rails up X2. fiber designer on. Pulse ox on. NIBP on. 13:53 Provided Education on: medications prior to administration. ap3 14:11 Jose Amaya is Hospitalizing Provider. [facility] 14:44 CT Abd/Pelvis - Without Contrast In Process Unspecified. EDMS 15:50 initiated a transfer with OSMAN Law from the [facility] Transfer [place]. eb 16:[address] Anne Bhatt the hospitalist deboner for [facility] with eb Erum Pin Cleaner for patient transfer consultation/. 16:[address] Bhatt has declined the patient / so it's a physician refusal at [facility]. 16:24 Jose Amaya is Hospitalizing Provider. [facility] 16:53 initiated a transfer with Michelle from the [facility] transfer Center at the request of the eb provider/. 17:34 connected the doctors deboner for [facility] with Erum Pin Cleaner for patient transfer eb consultation. 17:44 administrative approval given by Michelle Posadas/ patient has been accepted to [facility] 11D bed 1161/ Dr. Arron Pierce Has accepted the patient in transfer/ report to be called to [phone]. 18:41 No provider procedures requiring assistance completed. Patient transferred, IV remains ap3 in place. Administered Medications: 11:41 Drug: NS 0.9% IV 500 ml IV at bolus once Route: IV; Rate: bolus; Site: left antecubital;ap3 18:53 Follow up: IV Status: Completed infusion ap3 13:47 Drug: Ciprofloxacin IVPB 400 mg 200 ml IVPB once over 60 mins Volume: 200 ml; Route: ap3 IVPB; Infused Over: 60 mins; Site: left antecubital; 18:53 Follow up: IV Status: Completed infusion ap3 17:27 Drug: fentaNYL (PF) IVP 25 mcg IVP once Route: IVP; Site: left antecubital; ap3 18:53 Follow up: Response: No adverse reaction ap3 Medication: 13:52 VIS not applicable for this client. ap3 Outcome: 14:11 Decision to Hospitalize by Provider. jh7 15:57 ER care complete, transfer ordered by MD. jh7 16:26 Decision to Hospitalize by Provider. jh7 17:46 ER care complete, transfer ordered by MD. jh7 18:41 Transferred by ground EMS to [facility], ap3 18:41 Condition: good 18:41 Instructed on the need for transfer, 18:54 Patient left the ED. ap3 Signatures: Dispatcher [employer] EDMS Barbara Valles RN RN Earlene Watson 4 Yoanna Quigley RN RN ap3 Loly Pedroza Jennifer, FNP SENIOR BI DEVELOPER 7 Sharonda Lester 6 Corrections: (The following items were deleted from the chart) 10:50 10:47 Chief complaint: Bright red vaginal and rectal bleeding since last night. hb hb 10:51 10:47 Chief complaint: Bright red vaginal and rectal bleeding since last night. hb Recently inpatient for sepsis and proctitis, discharged home yesterday hb
--- NOTE | 2023-05-11 15:22 | RAD REPORT ---
EXAM DESCRIPTION: CT - Abdomen Pelvis Wo Contrast - 05/11/2023 2:42 pm CLINICAL HISTORY: Abdominal pain COMPARISON: January 2023 TECHNIQUE: Computed axial tomography of the abdomen and pelvis was obtained. IV and oral contrast we re not requested. All CT scans are performed using dose optimization technique as appropriate and may include automated exposure control or mA/KV adjustment according to patient size. FINDINGS: The evaluation of solid organs, vessels and bowel is limited secondary to the lack of con trast administration. Small right pleural effusion. Small left pleural effusion. Right basilar atelectasis Liver, pancreas, adrenals and kidneys grossly normal. Splenic granulomata Gee catheter within the bladder. Hysterectomy. No adnexal mass. Cement has been placed into an old compression fracture L1 vertebral body. Atherosclerosis Mild rectal wall thickening could be secondary to incomplete distention inflammation Chronic dislocation left hip IMPRESSION: Small right and left pleural effusions Mild rectal wall thickening could be secondary to incomplete distention or inflammation
[2023-05-11] MEDS ORDERED: FENTANYL CITR 100 MCG/2 ML ONE (17:31)
[2023-05-11 19:53] VITALS: TEMP 98.1
[2023-05-11 19:54] VITALS: O2SAT 100
[2023-05-11 19:55] VITALS: BP 165/61
--- NOTE | 2023-05-14 12:24 | EKG ---
Test Date: 2023-05-11 Test Time: 12:20:47 Hand Glove Cleaner: SHO MEASUREMENT RESULTS: Intervals: Rate: 51 [place]: 200 QRSD: 102 QT: 478 QTc: 440 [place]: P: 82 [place]: 200 QRS: 47 T: 46 INTERPRETIVE STATEMENTS: Sinus bradycardia Otherwise normal ECG Compared to ECG 05/03/2023 22:45:40 Sinus rhythm no longer present Ventricular premature complex(es) no longer present Left-axis deviation no longer present Electronically Signed On 05-14-23 12:18:37 CDT by Clarence Navarrete
== END 2023-05-11 18:54 | disposition short-term general hospital (02) ==
LOC: ER 10:33
DX: N30.01 Acute cystitis with hematuria (principal); I10 Essential (primary) hypertension; J44.9 Chronic obstructive pulmonary disease, unspecified; Z88.1 Allergy status to other antibiotic agents; Z88.3 Allergy status to other anti-infective agents; Z88.5 Allergy status to narcotic agent; Z88.6 Allergy status to analgesic agent; Z88.8 Allergy status to other drugs, medicaments and biological substances
CPT/HCPCS: 96365; 96361; 87040 ×2; 87088; 85025; 81001; 87086; 36415; 86900; 86850; 85610; 86901; 83605; 83690; 80053; 74176; 96375; 99285; 96366; J3010; J0744; J7040; 93005